=== PATIENT | male | born 1935 | race Caucasian/White ===

== ENCOUNTER → 2019-03-23 09:24 | Outpatient (CLI) | payer MEDICARE, SELFPAY ==
[2019-02-10 15:04] VITALS: BMI 25.7
--- NOTE | 2019-03-23 09:31 | STEWCON_ITS ---
Reason For Study: OLD [place] Stress Results Protocol: Dobutamine with definity Maximum Predicted HR: 138 bpm Target HR: 117 bpm % Maximum Predicted HR: 88 % DurationHeart Rate Stage (mm:ss) (bpm) BP Dose Comment BASELINE 57 105/64 3 CC DEFINITY 10 MCG 5:08 53 115/6010.001 CC DEFINITY 20 MCG 3:00 93 131/7420.00 30 MCG 3:00 107 127/7030.00 40 MCG 4:15 121 121/7040.002 CC DEFINITY RECOVERY 50 104/60 2 CC DEFINITY Stress Duration: 15:23 mm:ss Maximum Stress HR: 121 bpm Baseline Echocardiogram Findings The estimated ejection fraction is 65 %. Stress Echo Wall motion Data Resting WM Intermediate WM Stress WM Resting Wall Motion Wall Motion Stress No regional wall motion No regional wall motion abnormalities noted. abnormalities noted. EKG Data The baseline ECG displays normal sinus rhythm. The patient was titrated from 10 mcg to a maximum of 40 mcg of dobutamine during the stress. The maximum heart rate attained was 126 beats per minute. This was 91% of maximum predicted heart rate. During dobutamine infusion, there were no ST or T wave changes noted to suggest ischemia. No clinical angina was noted. Interpretation Summary The estimated ejection fraction is 65 %. Normal, adequate, dobutamine echocardiogram. Negative for ischemia by EKG and echocardiographic anterior. No anginal symptoms noted. Rare PVCs noted. Final LVEF is 75%. Decreased sensitivity due to poor echo windows requiring Definity agent. Test terminated due to attainment of target heart rate. No complications. The study was technically difficult. Contrast injection was performed. Ordering Physician: Jose Luis Hernandez MD Referring Physician: Jose Luis Hernandez Performed By: Nick Castro RCS
== END ==
PROVIDERS: Family Provider Family Medicine; PCP Family Medicine; Referring Provider Internal Medicine Cardiovascular Disease; Visit Provider Internal Medicine Cardiovascular Disease
DX: I25.10 Atherosclerotic heart disease of native coronary artery without angina pectoris (principal); E78.5 Hyperlipidemia, unspecified; I25.2 Old myocardial infarction; Z95.5 Presence of coronary angioplasty implant and graft
CPT/HCPCS: 93017; 93350; J7040; Q9957; A4216; C8928

== ENCOUNTER 2024-12-07 12:38 | Emergency (ER) | payer MEDICARE, SELFPAY ==
[2024-12-07 12:42] VITALS: BP 107/67; PULSE 78; RESP 18; TEMP 36.6; O2SAT 100
--- NOTE | 2024-12-07 13:16 | ED.VIS.DYS ---
HPI History of Present Illness Chief Complaint: Edema Informant: patient and PCP Narrative Narrative: 89-year-old male sent over from primary care office because of edema in the legs that has been present for several weeks according to the patient, 25 pound weight gain over the past 3-4 months, and dyspnea with exertion. He denies orthopnea. No chest pain. He has been able to ambulate. He had a remote stent placed 14 years ago or so, he denies a history of CHF that he knows of. In the office they said he appeared to be in A-fib and if so that would be new for him. Patient denies having any palpitations. Patient states he had a checkup 3 weeks ago in the office and discussed the leg edema with his doctor, they told him to watch it and they did not change any of his medications. [facility] Medical History (Updated 12/07/24 @ 15:[address] Colin Lee MD) Gout Atherosclerosis of coronary artery of [place] heart without angina pectoris Hypertension Hyperlipidemia Old inferior wall myocardial infarction Home Medications ?Medication ?Instructions ?Recorded ?Last Taken ?Type allopurinol 300 mg tablet 300 mg PO DAILY 09/13/17 12/07/24 History amoxicillin 500 mg tablet 2,000 mg PO DAILY PRN DENTIST 09/13/17 Unknown History bimatoprost 0.01 % eye drops 1 drp ophthalmic (eye) QHS 09/13/17 12/07/24 History ([place]) carvedilol 3.125 mg tablet (Coreg) 3.125 mg PO BID 09/13/17 12/07/24 History [id number] 300 mcg-K 60 1 tab PO DAILY 09/13/17 12/07/24 History mcg-lycop 600 mcg-lutein 300 mcg tablet (Centrum Silver Men) niacin 500 mg tablet,extended 500 mg PO QHS 09/13/17 12/06/24 History release 24 hr (Niaspan) nitroglycerin 0.4 mg sublingual 0.4 mg sublingual Q5-15M PRN chest 09/13/17 Unknown History tablet pain pravastatin 20 mg tablet 20 mg PO QHS 09/14/17 12/06/24 History brinzolamide 1 %-brimonidine 0.2 % 1 drp ophthalmic (eye) BID 02/10/19 Unknown History eye drops,suspension (Simbrinza) apixaban 2.5 mg tablet (Eliquis) 2.5 mg PO BID #60 tabs 12/07/24 Unknown Rx furosemide 40 mg tablet 40 mg PO DAILY #30 tabs 12/07/24 Unknown Rx lutein 10 mg tablet 10 mg PO DAILY 12/07/24 12/07/24 History Allergy/AdvReac Type Severity Reaction Status Date / Time SHARON Inhibitors AdvReac Hypotensive Verified 12/07/24 12:43 Family History Mother , AGe 71 Congestive heart failure Sister , Age 66 CAD (coronary artery disease) Breast cancer S/P CABG (coronary artery bypass graft) Surgical History H/O bilateral inguinal hernia repair H/O bilateral hip replacements H/O right coronary artery stent placement (06/13/10) Social History Smoking Status: Never smoker ROS ROS ED Constitutional Constitutional ED: Denies chills or fever(s) Eyes Eyes: Denies change in vision or diplopia ENT ENT ED: Denies rhinorrhea or sore throat Cardiovascular Cardiovascular: Reports leg edema; Denies chest pain or palpitations Respiratory/Chest Respiratory/Chest: Reports dyspnea and dyspnea on exertion; Denies cough Gastrointestinal Gastrointestinal: Denies abdominal pain, diarrhea, nausea or vomiting Genitourinary Genitourinary ED: Denies dysuria or hematuria Musculoskeletal Musculoskeletal: Denies back pain or neck pain Integumentary Denies abscess or rash Neurologic Neurologic: Denies headache(s), paresthesias or weakness Psychiatric Psychiatric: Denies anxiety or suicidal thoughts EXAM Physical Exam Const Vital Signs: 12/07/24 12:42 12/07/24 13:17 12/07/24 13:17 Temperature 97.8 F Temperature Source Oral Pulse Rate 78 Respiratory Rate 18 Respiratory Effort Short of Breath Normal Short of Breath Respiratory Depth Normal Respiratory Pattern Normal Normal Blood Pressure 107/67 Blood Pressure Mean 80 Pulse Ox 100 Oxygen Delivery Method Room Air Room Air Oxygen Flow Rate (L/min) 12/07/24 13:34 12/07/24 15:00 12/07/24 16:14 Temperature Temperature Source Pulse Rate 65 65 Respiratory Rate 18 18 Respiratory Effort Respiratory Depth Respiratory Pattern Blood Pressure 118/80 121/81 H Blood Pressure Mean 92 94 Pulse Ox 99 94 Oxygen Delivery Method Nasal Cannula Room Air Room Air Oxygen Flow Rate (L/min) 2 12/07/24 16:15 Temperature 97.8 F Temperature Source Pulse Rate 61 Respiratory Rate 19 H Respiratory Effort Respiratory Depth Respiratory Pattern Blood Pressure 120/80 Blood Pressure Mean 93 Pulse Ox 97 Oxygen Delivery Method Oxygen Flow Rate (L/min) Positive well nourished and well developed General Appearance ED: well developed and NAD HEENT Reports moist mucous membranes normocephalic and atraumatic Eyes PERRL and EOMs intact bilaterally Neck full ROM and supple Neck Narrative: +JVD Resp normal respiratory effort and clear to auscultation bilaterally Cardio regular rate and regular rhythm Cardio Narrative: Faint heart sounds GI non-tender and non-distended Auscultation: normoactive bowel sounds Palpation: soft Back/Spine no CVA tenderness General Back: other FROM Extremity normal to inspection General Extremety ED: Yes edema; Negative for pulses abnormal or tenderness General Extremity: edema bilateral lower extremity Details: severe (Symmetric, no signs of cellulitis, up to thighs); Negative for pulses abnormal Neuro oriented x3, CN's II-XII intact bilaterally and no sensory deficits noted Sensorium / Orientation: awake and alert Motor Exam: strength 5/5 throughout Skin no rashes or lesions noted and no wounds MDM MDM MDM Narrative Medical decision making narrative: And symptoms are concerning for congestive heart failure. His workup is basically consistent with that in addition to rate-controlled atrial fibrillation, which apparently the patient was unaware of prior to this. No old EKG is able to be reviewed except for the one from the office today which is similar, but he has a wide QRS and mild hyperkalemia. His potassium is only 5.3, which typically is not high enough to do this, and shows evidence of hemolysis. Chest x-ray 2 views does show pulmonary edema/CHF on my interpretation. His BNP is high, he does have a little bit of renal insufficiency but the BNP seems elevated out of proportion. I discussed admission with the patient, he states he has been doing well at home without exertional chest discomfort, he is not been limited with regards to weakness or heaviness in his legs or his breathing and is able to climb a flight of stairs without difficulty with his walker. We discussed the possibility of outpatient follow-up and he is amenable to that. He ambulated down the [place] with his walker without any limitation or problem, and he did not go below 94% on room air. His troponin is a little elevated but nonspecifically so, repeat is lower. I discussed with cardiology Dr. Watt, who agrees with starting him on low-dose anticoagulant, Lasix 40 mg once daily, continue with carvedilol as it is rate controlling him well, and close a patient follow-up in the office. He and family are comfortable with that plan. History & Record Review Additional record(s) reviewed:: No prior records (No old EKG, no prior echocardiogram) Lab Data Attestation: I reviewed the patient's lab results. Labs: Laboratory Results - last 24 hr 12/07/24 12/07/24 13:30 15:22 WBC 4.5 RBC 3.46 L Hgb 12.7 L Hct 38.8 L MCV 112.1 H MCH 36.7 H MCHC 32.7 RDW Std Deviation 60.1 H RDW Coeff of Yanet 14.6 Plt Count 100 L MPV 12.8 H Immature Gran % (Auto) 0.400 Neut % (Auto) 70.6 H Lymph % (Auto) 15.7 L [place] % (Auto) 11.7 H Eos % (Auto) 0.9 Baso % (Auto) 0.7 Absolute Neuts (auto) 3.2 Absolute Lymphs (auto) 0.70 L Nucleated RBC % 0 Sodium 135 Potassium 5.3 H Chloride 104 Carbon Dioxide 21.5 Anion Gap 10 BUN 34 H Creatinine 1.35 H Est GFR (MDRD) Non-Af 50 L BUN/Creatinine Ratio 25.0 H Glucose 143 H Calcium 8.8 Troponin T High Sens 46 H Troponin T Hi Sens 2 Hr 40 H NT pro BNP II 7289 H Radiography Diagnostic Testing: Clinical Impression(s) from Imaging Studies Chest X-Ray 12/07/24 13:55 IMPRESSION: Mild cardiomegaly. Vascular congestion and mild CHF with bibasilar atelectasis and blunting of both costophrenic angles posteriorly. Reading Location: [facility] Rhythm Strip Rhythm Strip: A-fib Rate: 65 Ectopy: None EKG Initial EKG: Attestation: I personally reviewed and interpreted this EKG as follows: Interpretation: No Acute Injury Pattern and Atrial Fibrillation Comments: Slightly wide QRS. Poor R wave progression. Low limb lead voltage. No electrical alternans. Prior EKG tracings: not available for review Prior: No Prior Management Discussion w/another healthcare provider: [employer] Discharge Plan Triage Chief Complaint: Edema Other Complaint: Shortness of Breath ED Provider: Colin Lee Dx/Rx/DC Orders Clinical Impression: Acute CHF, Atrial fibrillation, Acute renal insufficiency Instructions: AFib Dc, Heart Failure Prescriptions: New Eliquis 2.5 mg tablet 2.5 mg PO BID Qty: 60 0RF furosemide 40 mg tablet 40 mg PO DAILY Qty: 30 0RF Continued pravastatin 20 mg tablet 20 mg PO QHS allopurinol 300 mg tablet 300 mg PO DAILY nitroglycerin 0.4 mg tablet, sublingual 0.4 mg SUBLINGUAL Q5-15M PRN (Reason: chest pain) niacin [Niaspan Extended-Release] 500 mg tablet extended release 24 hr 500 mg PO QHS carvedilol [Coreg] 3.125 mg tablet 3.125 mg PO BID amoxicillin 500 mg tablet 2,000 mg PO DAILY PRN (Reason: DENTIST) Patient Comments: 30-60 minutes prior to dental procedure Lumigan 0.01 % drops 1 drp OPHTHALMIC QHS Rx Instructions: 1 DROP IN BOTH EYES Centrum Silver Men 300-600-300 mcg tablet 1 tab PO DAILY Simbrinza 1-0.2 % drops,suspension 1 drp OPHTHALMIC BID lutein 10 mg tablet 10 mg PO DAILY Rx Instructions: give with meal/snack Discontinued aspirin 81 mg tablet,delayed release (DR/EC) 81 mg PO DAILY Primary Care Provider: Butch Munoz Referrals: Broderick Watt MD [Med Staff - Active Staff] - As soon as possible (call for appt) Print Language: Romanian Disposition Disposition: Home, Self Care
[2024-12-07 13:17] VITALS: O2SAT 97
[2024-12-07 13:42] LABS: Absolute Neutrophil Count 3.2 X10^3/uL (2.0-7.7); Basophil# 0.03 X10^3/uL; Basophil% 0.7 % (0-1); Eosinophil# 0.04 X10^3/uL; Eosinophils% 0.9 % (0-5); Hematocrit 38.8 % (40-54); Hemoglobin 12.7 g/dL (13.0-16.5); Lymphocyte % 15.7 % (19-41); Mean Corp Hgb Conc 32.7 g/dL (32-36); Mean Corpuscular Hgb 36.7 pg (27.0-32.0); Mean Corpuscular Volume 112.1 fL (80-94); Mean Platelet Vol. 12.8 fl (6.2-12.0); Monocyte# 0.52 X10^3/uL; Monocyte% 11.7 % (0-10); NRBC Flagged by Analyzer 0 % (0-5); Neutrophil # 3.15 X10^3/uL (2.7-7.7); Neutrophil % 70.6 % (47-70); Platelet Count 100 K/mm3 (150-450); RBC Distribution Width CV 14.6 % (11.6-14.6); RBC Distribution Width SD 60.1 fl (35.1-43.9); Red Blood Count 3.46 M/mm3 (4.6-6.2); White Blood Count 4.5 K/mm3 (4.4-11.0)
--- NOTE | 2024-12-07 13:55 | RAD_ITS ---
PROCEDURE: CHEST PA AND LATERAL 12/07/2024 REASON FOR EXAM: DYSPNEA TECHNIQUE: Frontal and lateral views of the chest. COMPARISON: No priors available. FINDINGS: Hardware: EKG electrodes are seen. Heart: Heart size is mildly enlarged. Mediastinum: Calcification of the aortic arch. Lungs: Elevation of the right hemidiaphragm. Bibasilar atelectasis. Mild vascular congestion and CHF. Blunting of the costophrenic angles posteriorly. Bones: Degenerative changes are identified within the thoracic spine. Degenerative changes of both shoulder joints. RAD/Chest PA and Lateral IMPRESSION: Mild cardiomegaly. Vascular congestion and mild CHF with bibasilar atelectasis and blunting of bot h costophrenic angles posteriorly. Reading Location: [place] [id number]
[2024-12-07 14:14] LABS: Anion Gap 10 (5-15); BUN 34 mg/dL (4-19); Calcium,Total 8.8 mg/dL (7.6-11.0); Carbon Dioxide 21.5 mmol/L (21.0-32.0); Chloride 104 mmol/L (98-108); Creatinine, Serum 1.35 mg/dL (0.70-1.20); EST Glomerular Filtration Rate 50 (>60); Glucose 143 mg/dL (70-99); Potassium 5.3 mmol/L (3.3-5.1); Pro- Brain NATRIURETIC PEPTIDE 7289 pg/mL (<=1800); Sodium Level 135 mmol/L (133-145); Troponin T High Sensitivity 46 ng/L (<=22)
[2024-12-07 15:00] VITALS: BP 118/80; PULSE 65; RESP 18; O2SAT 99
[2024-12-07 15:22] VITALS: BMI 31.8
[2024-12-07 16:02] VITALS: O2SAT 100
[2024-12-07 16:13] LABS: Troponin T High Sens 2 HR 40 ng/L (<=22)
[2024-12-07] MEDS: Furosemide 20 MG/2 ML VIAL IV (16:13)
[2024-12-07 16:14] VITALS: BP 121/81; PULSE 65; RESP 18; O2SAT 94
[2024-12-07 16:15] VITALS: BP 120/80; PULSE 61; RESP 19; TEMP 36.6; O2SAT 97
== END 2024-12-07 16:35 | disposition home or self-care (01) ==
PROVIDERS: Emergency Provider Emergency Medicine; PCP Family Medicine; Visit Provider Emergency Medicine
DX: I11.0 Hypertensive heart disease with heart failure (principal); I50.9 Heart failure, unspecified; I48.91 Unspecified atrial fibrillation; N28.9 Disorder of kidney and ureter, unspecified; E87.5 Hyperkalemia; I25.10 Atherosclerotic heart disease of native coronary artery without angina pectoris; E78.5 Hyperlipidemia, unspecified; R60.0 Localized edema; I25.2 Old myocardial infarction; Z79.01 Long term (current) use of anticoagulants; Z79.899 Other long term (current) drug therapy; Z95.5 Presence of coronary angioplasty implant and graft
CPT/HCPCS: 71046; 80048; 83880; 84484; 85025; 93005; 96374; 99285; A4216; J1940

== ENCOUNTER 2025-01-06 13:43 | Inpatient (IN) | payer MEDICARE, SELFPAY ==
[2025-01-06] VITALS (13 sets, daily range): BP systolic 99–124; BP diastolic 67–89; PULSE 67–110; RESP 19–26; TEMP 36.1–36.8; O2SAT 86–100; BMI 29.7; BMI 26.3
--- NOTE | 2025-01-06 14:04 | EKG12_ITS ---
Test Reason : Blood Pressure : */* mmHG Vent. Rate : 82 BPM Atrial Rate : * BPM P-R Int : * ms QRS Dur : 158 ms QT Int : 428 ms P-R-T Axes : * -86 45 degrees QTcB Int : 500 ms Atrial fibrillation with premature ventricular or aberrantly conducted complexes Left axis deviation Left bundle branch block Abnormal ECG Confirmed by JOSÉ MANUEL TREJO, BERNARD ([id number]), multimedia editor GENESIS TERRAZAS ([id number]) on 01/10/2025 7:03:18 AM Referred By: Ariela Luciano Confirmed By: BERNARD GEORGES MD
--- NOTE | 2025-01-06 14:05 | ED.VIS.DYS ---
HPI History of Present Illness Chief Complaint: Shortness of Breath Informant: patient, family and other (Dr. Wong, cardiology) Narrative Narrative: Patient sent down from cardiology office for evaluation admission. Dr. Wong came out of the department. Patient follow-up from the ED visit on December 07. He had significant leg swelling with put on water pills clinically stay was getting better however arrival to the office he was 74% on room air. He was placed on 4 L in the office. EKG with A-fib similar from his previous. Family present states less activity since his ED visit. He is on water pills 2 tabs daily. States leg swelling much more improved from previous. Denies orthopnea. Denies cough. Denies chest pains. He had a heart stent in 2009. Per cardiology EF was normal in 2017. Patient reports he was started on Eliquis on his last ED visit. [facility] Medical History (Updated 01/06/25 @ 15:[address] Bret Victoria, DO) Gout Atherosclerosis of coronary artery of [place] heart without angina pectoris Hypertension Hyperlipidemia Old inferior wall myocardial infarction Home Medications ?Medication ?Instructions ?Recorded ?Last Taken ?Type allopurinol 300 mg tablet 300 mg PO DAILY 09/13/17 12/07/24 History amoxicillin 500 mg tablet 2,000 mg PO DAILY PRN DENTIST 09/13/17 Unknown History bimatoprost 0.01 % eye drops 1 drp ophthalmic (eye) QHS 09/13/17 12/07/24 History ([place]) carvedilol 3.125 mg tablet (Coreg) 3.125 mg PO BID 09/13/17 12/07/24 History zccbwert-cm-fgaaw 300 mcg-K 60 1 tab PO DAILY 09/13/17 12/07/24 History mcg-lycop 600 mcg-lutein 300 mcg tablet (Centrum Silver Men) niacin 500 mg tablet,extended 500 mg PO QHS 09/13/17 12/06/24 History release 24 hr (Niaspan) nitroglycerin 0.4 mg sublingual 0.4 mg sublingual Q5-15M PRN chest 09/13/17 Unknown History tablet pain pravastatin 20 mg tablet 20 mg PO QHS 09/14/17 12/06/24 History brinzolamide 1 %-brimonidine 0.2 % 1 drp ophthalmic (eye) BID 02/10/19 Unknown History eye drops,suspension (Simbrinza) apixaban 2.5 mg tablet (Eliquis) 2.5 mg PO BID #60 tabs 12/07/24 Unknown Rx lutein 10 mg tablet 10 mg PO DAILY 12/07/24 12/07/24 History aspirin 81 mg tablet 81 mg PO QDAY 01/06/25 Unknown History furosemide 40 mg tablet 80 mg PO DAILY 01/06/25 Unknown History Allergy/AdvReac Type Severity Reaction Status Date / Time SHARON Inhibitors AdvReac Hypotensive Verified 01/06/25 13:08 Family History Mother , AGe 71 Congestive heart failure Sister , Age 66 CAD (coronary artery disease) Breast cancer S/P CABG (coronary artery bypass graft) Surgical History H/O bilateral inguinal hernia repair H/O bilateral hip replacements H/O right coronary artery stent placement (06/13/10) Social History household members: spouse housing: house current occupational status: retired Smoking Status: Never smoker ROS ROS ED Constitutional Constitutional ED: Denies chills, fever(s) or sweats ENT ENT ED: Denies sore throat Cardiovascular Cardiovascular: Reports leg edema; Denies chest pain, palpitations or racing heartbeat Respiratory/Chest Respiratory/Chest: Reports dyspnea and dyspnea on exertion; Denies cough Gastrointestinal Gastrointestinal: Denies abdominal pain, diarrhea, nausea or vomiting Genitourinary Genitourinary ED: Denies dysuria, hematuria or urinary frequency Musculoskeletal Musculoskeletal: Denies back pain, extremity pain or neck pain Integumentary Denies rash or wounds Neurologic Neurologic: Denies headache(s), paresthesias or weakness EXAM Physical Exam Const Vital Signs: 01/06/25 13:44 01/06/25 14:13 01/06/25 14:21 Temperature 96.9 F L Temperature Source Temporal Pulse Rate 110 H 82 Respiratory Rate 26 H 24 H Respiratory Effort Respiratory Depth Respiratory Pattern Blood Pressure 124/74 H Blood Pressure Mean 90 Pulse Ox 94 98 100 Oxygen Delivery Method Nasal Cannula Nasal Cannula Nasal Cannula Oxygen Flow Rate (L/min) 6 5 5 01/06/25 14:30 01/06/25 14:35 01/06/25 15:00 Temperature Temperature Source Pulse Rate 80 78 Respiratory Rate 22 H 19 H Respiratory Effort Short of Breath Respiratory Depth Normal Respiratory Pattern Tachypnea Blood Pressure 113/89 H 99/78 Blood Pressure Mean 97 86 Pulse Ox 100 Oxygen Delivery Method Nasal Cannula Nasal Cannula Oxygen Flow Rate (L/min) 5 3 Positive well nourished and well developed Constitutional Narrative: 6 L nasal cannula, no respiratory distress. General Appearance ED: well developed and NAD HEENT Reports moist mucous membranes normocephalic and atraumatic Eyes General Eye ED: Yes normal appearance of both eyes Neck full ROM Chest Wall Chest: Negative for tenderness Resp normal respiratory effort and normal air movement Effort and Inspection: symmetric chest movement; Negative for respiratory distress Cardio regular rate and no murmurs Peripheral Pulses: pulses 2+ throughout GI normal to inspection, nondistended, normoactive bowel sounds and non-tender Palpation: Negative for guarding or rebound tenderness present Extremity normal to inspection Extremity Narrative: 1+ lower extremity edema. General Extremety ED: Yes edema; Negative for tenderness General Extremity: edema Neuro oriented x3 and no sensory deficits noted Sensorium / Orientation: awake and alert Skin no rashes or lesions noted and no wounds MDM MDM MDM Narrative Medical decision making narrative: Interventions / MDM: Differential diagnosis: Congestive heart failure, atrial fibrillation, hypoxia, elevated troponin Diagnosis considered but do not suspect: Pulmonary embolism however on anticoagulation and compliant. My EKG interpretation: Rate controlled A-fib 82, no ST changes PVC left bundle branch block. Similar findings from EKG December 07, 2024. Imaging independently reviewed and interpreted by myself: 1 view chest x-ray: Vascular congestion also read by radiology. External documents reviewed: ED visit December 07, 2024. New onset A-fib rate controlled. Heart failure. Discussion with cardiology in department Lasix to 40 mg daily along with Eliquis 2.5 mg twice daily.. Test considered but not ordered:N/A ED course: Patient currently on 6 L nasal cannula due to hypoxia, Which is new. Clinically reporting overall symptoms seem to be improved on the diuretics. EKG with rate controlled A-fib. Will check chest x-ray will check labs. Patient will need admission due to hypoxia. 1515: Labs stable creatinine at 1.5 GFR of 39. Hemoglobin 15.8. White count 4.4. BNP 9617. Chest x-ray with vascular congestion. Given IV Lasix of 40 mg. Troponin elevated at 65 a month ago it was in the 40s. No chest pains. I did give him 2 baby aspirin's. He is on Eliquis with last dose this morning. I discussed with hospitalist Dr. Luciano for admission to PCU. Re-evaluation: stable Disposition discussed with patient/family/significant other: Patient and family Case discussed with consulting clinician: Hospitalist This note was generated with [employer] dictation software. It may contain incorrect words, spelling, and punctuation that were not noted in checking the note before signing. Lab Data Attestation: I reviewed the patient's lab results. Labs: Laboratory Results - last 24 hr 01/06/25 14:19 WBC 4.4 RBC 4.36 L Hgb 15.8 Hct 46.9 MCV 107.6 H MCH 36.2 H MCHC 33.7 RDW Std Deviation 60.3 H RDW Coeff of Yanet 15.0 H Plt Count 98 L MPV 10.5 Immature Gran % (Auto) 0.500 Neut % (Auto) 65.5 Lymph % (Auto) 18.1 L [place] % (Auto) 13.8 H Eos % (Auto) 1.6 Baso % (Auto) 0.5 Absolute Neuts (auto) 2.9 Absolute Lymphs (auto) 0.79 L Nucleated RBC % 0.5 PT 18.1 H INR 1.5 APTT 41.0 H Sodium 135 Potassium 3.7 Chloride 96 L Carbon Dioxide 27.0 Anion Gap 13 BUN 33 H Creatinine 1.51 H Estim Creat Clear Calc 38.97 L Est GFR (MDRD) Non-Af 44 L BUN/Creatinine Ratio 22.1 H Glucose 129 H Calcium 9.4 Troponin T High Sens 65 H* D NT pro BNP II 9617 H Radiography Diagnostic Testing: Clinical Impression(s) from Imaging Studies Chest X-Ray 01/06/25 14:20 IMPRESSION: Cardiomegaly with mild congestion. Reading Location: [facility] Discharge Plan Triage Chief Complaint: Shortness of Breath ED Provider: Bret Victoria Dx/Rx/DC Orders Clinical Impression: CHF (congestive heart failure), Hypoxia, Atrial fibrillation, controlled, Elevated troponin, CKD (chronic kidney disease), stage III Prescriptions: No Action pravastatin 20 mg tablet 20 mg PO QHS allopurinol 300 mg tablet 300 mg PO DAILY nitroglycerin 0.4 mg tablet, sublingual 0.4 mg SUBLINGUAL Q5-15M PRN (Reason: chest pain) niacin [Niaspan Extended-Release] 500 mg tablet extended release 24 hr 500 mg PO QHS carvedilol [Coreg] 3.125 mg tablet 3.125 mg PO BID amoxicillin 500 mg tablet 2,000 mg PO DAILY PRN (Reason: DENTIST) Patient Comments: 30-60 minutes prior to dental procedure Lumigan 0.01 % drops 1 drp OPHTHALMIC QHS Rx Instructions: 1 DROP IN BOTH EYES Centrum Silver Men 300-600-300 mcg tablet 1 tab PO DAILY Simbrinza 1-0.2 % drops,suspension 1 drp OPHTHALMIC BID aspirin 81 mg tablet 81 mg PO QDAY furosemide 40 mg tablet 80 mg PO DAILY lutein 10 mg tablet 10 mg PO DAILY Rx Instructions: give with meal/snack Eliquis 2.5 mg tablet 2.5 mg PO BID Qty: 60 0RF Primary Care Provider: Butch Munoz Referrals: Butch Munoz MD [Primary Care Provider] - Print Language: Upper Sorbian Disposition Disposition: Acute Care Hospital [facility]
--- NOTE | 2025-01-06 14:20 | RAD_ITS ---
EXAM: XR Chest, 1 View CLINICAL INDICATION: SOB TECHNIQUE: Frontal view of the chest. COMPARISON: No relevant prior studies available. FINDINGS: LUNGS AND PLEURAL SPACES: See below. HEART: Cardiomegaly with mild congestion. MEDIASTINUM: Unremarkable. Normal mediastinal contour. BONES/JOINTS: Unremarkable. No acute fracture. RAD/Chest 1 View (Portable) IMPRESSION: Cardiomegaly with mild congestion. Reading [facility]
[2025-01-06 14:37] LABS: Absolute Lymphocyte Count 0.79 X10^3/uL (0.83-4.51); Absolute Neutrophil Count 2.9 X10^3/uL (2.0-7.7); Basophil# 0.02 X10^3/uL; Basophil% 0.5 % (0-1); Eosinophil# 0.07 X10^3/uL; Eosinophils% 1.6 % (0-5); Hematocrit 46.9 % (40-54); Hemoglobin 15.8 g/dL (13.0-16.5); Lymphocyte # 0.79 X10^3/ul (0.83-4.51); Lymphocyte % 18.1 % (19-41); Mean Corp Hgb Conc 33.7 g/dL (32-36); Mean Corpuscular Hgb 36.2 pg (27.0-32.0); Mean Corpuscular Volume 107.6 fL (80-94); Mean Platelet Vol. 10.5 fl (6.2-12.0); Monocyte% 13.8 % (0-10); NRBC Flagged by Analyzer 0.5 % (0-5); Neutrophil # 2.86 X10^3/uL (2.7-7.7); Neutrophil % 65.5 % (47-70); POSITIVE COUNT YES; Platelet Count 98 K/mm3 (150-450); RBC Distribution Width SD 60.3 fl (35.1-43.9); Red Blood Count 4.36 M/mm3 (4.6-6.2); White Blood Count 4.4 K/mm3 (4.4-11.0)
[2025-01-06 14:54] LABS: Anion Gap 13 (5-15); BUN 33 mg/dL (4-19); BUN/Creat Ratio 22.1 RATIO (10-20); Calcium,Total 9.4 mg/dL (7.6-11.0); Chloride 96 mmol/L (98-108); Creatinine, Serum 1.51 mg/dL (0.70-1.20); EST Glomerular Filtration Rate 44 (>60); Estimated Creatinine Clearance 38.97 ml/min (50-250); Glucose 129 mg/dL (70-99); Potassium 3.7 mmol/L (3.3-5.1); Sodium Level 135 mmol/L (133-145)
[2025-01-06 14:57] LABS: Differential Indicated SCAN CRITERIA MET
[2025-01-06 15:03] LABS: Pro- Brain NATRIURETIC PEPTIDE 9617 pg/mL (<=1800); Troponin T High Sensitivity 65 ng/L (<=22)
[2025-01-06 15:10] LABS: International Normalized Ratio 1.5; Prothrombin Time (Protime)PT. 18.1 SECONDS (11.7-14.9)
[2025-01-06] MEDS: Aspirin 81 MG TAB.CHEW 162 MG PO (15:41)
[2025-01-06] MEDS: Furosemide 40 MG/4 ML Vial IV ×2 (15:45→18:08)
--- NOTE | 2025-01-06 15:46 | PCM.HP.STD ---
HPI - General General Date of Admission: 01/06/25 Date of Service: 01/06/25 Chief Complaint: Hypoxia HPI Narrative VALDO DUTTA, is a 89-year-old male history of gout, coronary artery disease, hypertension, A-fib who presented to [facility] ED 01/06/2025 from the cardiology office for evaluation for shortness of breath. Patient noted to have significant leg swelling and had been placed on water pills and thought he was getting better however on arrival to the cardiology office he was 74% on room air and placed on 4 L of O2 at that time and brought to the ED. On arrival to the ED patient afebrile, heart rate 110 with blood pressure 124/74, respiratory rate 26 and pulse ox 94% on 6 L nasal cannula. CBC revealed white blood cell count of 4.4 and hemoglobin of 15.8 with a platelet count of 9 8With a platelet count of 98. CBC with a BUN of 33 and creatinine of 1.51, slightly up from previous but does not meet criteria for TAHIRA. Chest x-ray with cardiomegaly with mild edema, proBNP 9600 and troponin of 65. Patient given IV Lasix for presumed fluid overload/heart failure exacerbation hospitalist contacted for admission. Patient evaluated with multiple family members at bedside. Reportedly since October patient's had increased shortness of breath on exertion and increased swelling in lower extremities, he was seen on 07 December and diagnosed with A-fib and placed on Lasix and Eliquis, PCP increased his Lasix 12 days ago and he thought he was doing better however was found to be hypoxic at the cardiology office and sent to the ED. He reports no shortness of breath while resting in the ED and that his swelling is better than it was. Denies any chest pain. Only other complaint is that for at least a week his left eye has had some change in depth perception and he feels like objects are closer than they seem when he reaches for them, closing his left eye resolves this. [facility] Medical History (Updated 01/06/25 @ 15:[address] Bret Victoria, ) Atherosclerosis of coronary artery of havasupai heart without angina pectoris Gout Hyperlipidemia Hypertension Old inferior wall myocardial infarction Home Medications ?Medication ?Instructions ?Recorded ?Last Taken ?Type allopurinol 300 mg tablet 300 mg PO DAILY 09/13/17 12/07/24 History amoxicillin 500 mg tablet 2,000 mg PO DAILY PRN DENTIST 09/13/17 Unknown History bimatoprost 0.01 % eye drops 1 drp ophthalmic (eye) QHS 09/13/17 12/07/24 History (Clau) carvedilol 3.125 mg tablet (Coreg) 3.125 mg PO BID 09/13/17 12/07/24 History uorcknut-pq-zuvxu 300 mcg-K 60 1 tab PO DAILY 09/13/17 12/07/24 History mcg-lycop 600 mcg-lutein 300 mcg tablet (Centrum Silver Men) niacin 500 mg tablet,extended 500 mg PO QHS 09/13/17 12/06/24 History release 24 hr (Niaspan) nitroglycerin 0.4 mg sublingual 0.4 mg sublingual Q5-15M PRN chest 09/13/17 Unknown History tablet pain pravastatin 20 mg tablet 20 mg PO QHS 09/14/17 12/06/24 History brinzolamide 1 %-brimonidine 0.2 % 1 drp ophthalmic (eye) BID 02/10/19 Unknown History eye drops,suspension (Simbrinza) apixaban 2.5 mg tablet (Eliquis) 2.5 mg PO BID #60 tabs 12/07/24 Unknown Rx lutein 10 mg tablet 10 mg PO DAILY 12/07/24 12/07/24 History aspirin 81 mg tablet 81 mg PO QDAY 01/06/25 Unknown History furosemide 40 mg tablet 80 mg PO DAILY 01/06/25 Unknown History Allergy/AdvReac Type Severity Reaction Status Date / Time SHARON Inhibitors AdvReac Hypotensive Verified 01/06/25 13:08 Family History Mother , AGe 71 Congestive heart failure Sister , Age 66 CAD (coronary artery disease) Breast cancer S/P CABG (coronary artery bypass graft) Surgical History H/O bilateral hip replacements H/O bilateral inguinal hernia repair H/O right coronary artery stent placement (06/13/10) Social History household members: spouse housing: house current occupational status: retired Smoking Status: Never smoker ROS ROS Narrative General: Denies fever/chills HENT: Denies headache, denies stuffy nose, denies sore throat EYES: Has some vision changes in his left eye for about a week Resp: Denies cough, shortness of breath particularly on exertion Cardiac: Denies chest pain GI: Denies abdominal pain, denies changes in bowel, denies nausea/vomiting : Denies changes in urination Extremity: Swelling in bilateral lower extremities MSK: Denies weakness Neuro: Denies any numbness/tingling Heme: Easy bruising Skin: Denies rashes Psychiatric: No complaints voiced Vital Signs Vital Signs Vital Signs: 01/06/25 13:44 01/06/25 14:13 01/06/25 14:21 Temperature 96.9 F L Temperature Source Temporal Pulse Rate 110 H 82 Respiratory Rate 26 H 24 H Respiratory Effort Respiratory Depth Respiratory Pattern Blood Pressure 124/74 H Blood Pressure Mean 90 Pulse Ox 94 98 100 Oxygen Delivery Method Nasal Cannula Nasal Cannula Nasal Cannula Oxygen Flow Rate (L/min) 6 5 5 01/06/25 14:30 01/06/25 14:35 01/06/25 15:00 Temperature Temperature Source Pulse Rate 80 78 Respiratory Rate 22 H 19 H Respiratory Effort Short of Breath Respiratory Depth Normal Respiratory Pattern Tachypnea Blood Pressure 113/89 H 99/78 Blood Pressure Mean 97 86 Pulse Ox 100 Oxygen Delivery Method Nasal Cannula Nasal Cannula Oxygen Flow Rate (L/min) 5 3 01/06/25 15:30 01/06/25 15:33 Temperature 98.2 F Temperature Source Pulse Rate 84 84 Respiratory Rate 20 H 20 H Respiratory Effort Respiratory Depth Respiratory Pattern Blood Pressure 107/79 107/79 Blood Pressure Mean 89 88 Pulse Ox 98 Oxygen Delivery Method Oxygen Flow Rate (L/min) Weight Weight: 94.2 kg Body Mass Index (BMI) 29.7 Physical Exam Narrative General: Alert, oriented, no apparent distress HEENT: Atraumatic, normocephalic Eyes: Anicteric, normal conjunctiva Neck: Supple Respiratory: Diminished bilaterally, conversational dyspnea Cardiovascular: Irregularly irregular GI: Soft, nontender, nondistended Extremities: 2+ lower extremity pitting edema Musculoskeletal: Moving all extremities Neuro: No overt focal neurological deficits apparent at time of exam Skin: No rashes appreciated Psych: Cooperative Results Lab / Micro Data 01/06/25 14:19 01/06/25 14:19 Labs: Laboratory Results - last 24 hr 01/06/25 14:19: WBC 4.4, RBC 4.36 L, Hgb 15.8, Hct 46.9, MCV 107.6 H, MCH 36.2 H, MCHC 33.7, RDW Std Deviation 60.3 H, RDW Coeff of Yanet 15.0 H, Plt Count 98 L, MPV 10.5, Immature Gran % (Auto) 0.500, Neut % (Auto) 65.5, Lymph % (Auto) 18.1 L, Sharp % (Auto) 13.8 H, Eos % (Auto) 1.6, Baso % (Auto) 0.5, Absolute Neuts (auto) 2.9, Absolute Lymphs (auto) 0.79 L, Nucleated RBC % 0.5, PT 18.1 H, INR 1.5, APTT 41.0 H, Sodium 135, Potassium 3.7, Chloride 96 L, Carbon Dioxide 27.0, Anion Gap 13, BUN 33 H, Creatinine 1.51 H, Estim Creat Clear Calc 38.97 L, Est GFR (MDRD) Non-Af 44 L, BUN/Creatinine Ratio 22.1 H, Glucose 129 H, Calcium 9.4, Troponin T High Sens 65 H* D, NT pro BNP II 9617 H Imaging Radiology Impression Chest X-Ray 01/06/25 14:20 IMPRESSION: Cardiomegaly with mild congestion. Reading Location: [facility] Assessment & Plan Assessment/Plan (1) CHF (congestive heart failure): QUALIFIERS: Heart failure type: unspecified Heart failure chronicity: acute Qualified Code(s): I50.9 - Heart failure, unspecified PLAN: Plan # Hypoxia secondary to fluid overload, suspect heart failure exacerbation of unclear subtype, did have diastolic dysfunction in 2017 so suspect heart failure with preserved ejection fraction exacerbation -Admit to telemetry -proBNP 9000 -CXR cardiomegaly with mild congestion -Continue IV lasix -Last echo 2017 with stage I diastolic dysfunction and normal EF -Repeat echo ordered -Daily weights, I's and O's -Fluid restriction, heart healthy diet #Elevated troponin - Troponin of 65 -No chest pain -Suspect this is all secondary to fluid overload # CKD stage III b - Slightly up from previous but does not meet criteria for an TAHIRA, suspect this is around baseline but will continue to trend BMP -Avoid nephrotoxic agents -Daily BMPs #Vision changes in left eye - Patient specifically reports altered depth perception with his left eye but is able to see things without difficulty, given this vague and nonspecific focal complaint will obtain routine CT head to verify no significant abnormalities, suspect patient can have further workup outpatient if this is negative #Paroxysmal Atrial Fibrillation -Rate control: Carvedilol -Anticoagulation: Eliquis #Hx of CAD -w/ previous stenting in 2009 after cardiac arrest -Continue home medications #Gout -Continue home allopurinol CODE status: Discussed CODE status at length including difference between FULL code, DNR-CCA, and DNR-CC status. Following discussions about the differences in these status, requested DO NOT RESUSCITATE but okay for intubation. Advanced Care Planning Face to Face Time: 20 minutes. #DVT ppx: Not indicated, patient on full dose anticoagulation Ariela Luciano MD Charges/Coding Multi Select Codes Visit Charges Visit Charges: 57297 Init Hosp L2 Hospitalists' Procedures Procedures: 69922 Advncd Care Plan 30 Min
--- NOTE | 2025-01-06 16:26 | CASEMGMT ---
Care Management Face to Face with patient for initial transition planning/care coordination assessment in the ED. This ticket writer introduced self and role at [facility]. Patient alert and oriented with patient's , Desire, at bedside. Patient willing to participate in assessment and is able to answer all questions appropriately. Care providers, pharmacy, and demographics verified. Admitting Diagnosis: CHF Other diagnosis history: gout, coronary artery disease, hypertension, A-fib PCP: Alexander Specialists: none Preferred Pharmacy: [facility] for 90 day supplies. [facility] for short term. Insurance: AARP Medicare Adv. Prescription Benefit: yes Living Will/HPOA: , Desire (primary). DaughterSusan (secondary). Not on file, but expressed intent to bring in for [facility] to make a copy and add to chart. LNOK: and daughter. Living Arrangements: with with 2 steps to enter, first floor living, needs help with some ADLs/IADLs depending on the day Transportation: daughter drives when necessary DME: walker, cane, walk in shower (has O2 on in ED due to SOB concerns, but does not have O2 at home) HHC: none (has only had outpatient therapies) SNF/Rehab: none Community Resources: none, but reports having anabaptist support Patient goals: Patient wishes to discharge home, denies need for home health care at this time (family in agreement). Patient denies any further needs or concerns at this time. Disposition Plan: admission to acute; RN CM/SW to follow for discharge planning needs that may arise. Iesha Singh, IT PROGRAM AUDITOR, TRIMMING CUTTER MACHINE
--- NOTE | 2025-01-06 16:44 | CT_ITS ---
PROCEDURE: BRAIN/HEAD WITHOUT CONTRAST 01/06/2025 REASON FOR EXAM: LEFT EYE DEPTH PERCEPTION VISION CHANGE X1 WEEK TECHNIQUE: Head CT without intravenous contrast. Coronal and Sagittal reconstruction series were provided. One or more dose reduction techniques were used (e.g., Automated exposure control, adjustment of the mA and/or kV according to patient size, use of iterative reconstruction technique. RADIATION DOSE SUMMARY: CTDlvol: 47.1 mGy DLP: 908 mGycm COMPARISON: None FINDINGS: Brain: No acute intracranial hemorrhage, midline shift, or mass effect. Low density in the periventricular white matter suggests chronic small vessel ischemic changes. CSF Spaces: Advanced generalized cerebral atrophy. Punctate foci of air are present at the cavernous sinus bilaterally. Sinuses/Mastoids: Opacification throughout the left maxillary sinus with hyperdense contents centrally. Bones: No displaced calvarial fracture. Soft tissue debris in the external auditory canals, likely cerumen. Pneumatized petrous apices. Bilateral enophthalmos. Prior cataract extraction bilaterally. CT/Brain/Head without Contrast IMPRESSION: 1. No acute intracranial abnormality. Senescent changes. 2. Bilateral enophthalmos. 3. Left maxillary sinus disease. Presence of hyperdense contents may be seen with fungal etiology. 4. Punctate foci of air in the region of the cavernous sinuses, which could be related to intravenous access in the absence of trauma. Infection is also possible but statistically less likely. Reading Location: [id number]
--- NOTE | 2025-01-06 16:44 | ECHOD_ITS ---
Reason For Study : CHF Procedure This was a 2D Doppler, Color Flow transthoracic echocardiogram. Exam performed portable in patient room. Left Ventricle Normal LV size. Mid cavitary false tendon noted. The left ventricular ejection fraction is 40 %. There is mild to moderate global hypokinesis of the left ventricle. Right Ventricle Normal RV size. Normal systolic function. Atria The left atrium is mildly enlarged. The right atrium is mildly enlarged. Mitral Valve Bileaflet diffuse mitral valve thickening. Moderate (2+) eccentric mitral valve insufficiency. Tricuspid Valve Normal tricuspid valve. Mild to moderate (1-2+) tricuspid valve insufficiency. Pulmonary artery systolic pressure is 46 mmHg. Aortic Valve Trisinus/trileaflet aortic valve. Mild focal aortic valve thickening. Mild (1+) eccentric aortic valve insufficiency. Pulmonic Valve Normal pulmonic valve. Great Vessels Normal aortic root. The pulmonary artery is normal size. The inferior vena cava is dilated. Pericardium/Pleural Small (<1.0 cm) pericardial effusion. MMode/2D Measurements & Calculations LVIDd: 5.8 cm IVSd: 0.91 cm Ao root diam: 3.2 cm LVIDs: 4.6 cm LVPWd: 0.94 cm RVDd: 3.0 cm FS: 20.7 % LAV(MOD-bp): 71.0 ml LVAd ap4: 36.0 cm2 LVAd ap2: 42.0 cm2 LAV(MOD-bp) Indexed: 33.5 ml/m2 LVLd ap4: 8.1 cm LVLd ap2: 8.4 cm LAV(MOD-sp2): 62.7 ml EDV(MOD-sp4): 130.9 ml EDV(MOD-sp2): 178.4 ml LAV(MOD-sp4): 71.6 ml EDV(sp4-el): 136.1 ml EDV(sp2-el): 178.9 ml LVAs ap4: 26.7 cm2 LVAs ap2: 30.0 cm2 LVLs ap4: 7.3 cm LVLs ap2: 7.2 cm ESV(MOD-sp4): 78.8 ml ESV(MOD-sp2): 101.3 ml ESV(sp4-el): 82.1 ml ESV(sp2-el): 105.9 ml EF(MOD-sp4): 39.7 % EF(MOD-sp2): 43.3 % EF(sp4-el): 39.7 % SV(MOD-sp4): 52.0 ml SV(MOD-sp2): 77.2 ml SV(sp4-el): 54.0 ml SI(MOD-sp4): 24.6 ml/m2 SI(MOD-sp2): 36.4 ml/m2 LA A4 area: 22.1 cm2 LA dimension(2D): 4.8 cm RA A4 area: 23.7 cm2 TAPSE: 1.7 cm Doppler Measurements & Calculations MV E max riley: 110.6 cm/sec Lat Peak E' Riley: 8.4 cm/sec Med Peak E' Riley: 6.3 cm/sec E/E' lat: 13.2 E/E' med: 17.4 Ao V2 max: 153.1 cm/sec AI max riley: 423.7 cm/sec LV V1 max: 100.8 cm/sec Ao max P.4 mmHg AI max P.9 mmHg LV V1 max P.1 mmHg Ao V2 mean: 100.9 cm/sec LV V1 mean P.2 mmHg Ao mean P.8 mmHg AI dec slope: 230.4 cm/sec2 LV V1 mean: 67.3 cm/sec Ao V2 VTI: 30.1 cm AI P1/2t: 538.6 msec LV V1 VTI: 19.0 cm AV (velocity ratio): 0.63 PA V2 max: 82.0 cm/sec TR max riley: 318.5 cm/sec TR max P.6 mmHg ECHO/Echo Complete Interpretation Summary Normal LV size. The left ventricular ejection fraction is 40 %. Mild (1+) eccentric aortic valve insufficiency. There is mild to moderate global hypokinesis of the left ventricle. Moderate (2+) eccentric mitral valve insufficiency. Ordering Physician: Ariela Luciano Referring Physician: Butch Munoz Performed By: Rona Darling RDCS, DONNA
[2025-01-06 17:16] LABS: Platelet Estimate SLT DEC (ADEQ)
[2025-01-06 17:28] LABS: Troponin T High Sens 2 HR 57 ng/L (<=22)
[2025-01-06] MEDS: Carvedilol 3.125 MG TABLET PO (18:08)
[2025-01-06] MEDS: 0.9% Saline Lock 10 ML Syringe IV (18:08)
[2025-01-06 19:06] LABS: Troponin T High Sens 4 HR 54 ng/L (<=22)
--- NOTE | 2025-01-06 20:31 | PN.HOSP_ITS ---
Hospitalist Note CT head obtained earlier due to patient's complaint that when he reached for objects they were little bit further than he anticipated but that was not the case if he closed his left eye. CT showed left maxillary sinus disease and presence of hyperdense contents that could be seen with fungal etiology as well as punctate foci of air in the region of the cavernous sinus which could be related to IV access in the absence of trauma, infection is also possible but statistically less likely. Spoke with patient again who again confirms symptoms been present about a week and have not improved but have not worsened, he has no headache, no facial tenderness, no stuffy nose/nasal symptoms, no other visual alterations or other complaints. On exam extraocular movements intact and pupils equal, no tenderness on palpation over sinuses. Despite symptoms being stable over the past week and no overt abnormalities on exam, we have no ENT consultation available until next week so it was discussed with patient regarding possible need for transfer for subspecialist evaluation and ultimately he was agreeable. Spoke with [facility] transfer line who triaged to [facility] in [place]. Spoke with Dr. Holman, hospitalist, who is agreeable to accept patient in transfer if ENT was agreeable and asked if I would speak with ENT. Spoke with Dr. Knight with ENT and went over patient's case including history, presentation, and imaging. 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 He said that this is something that can be evaluated on an outpatient basis and is not something that emergently needs evaluated and that patient does not require transfer. Informed patient of this. Given that is still unclear why patient had these vision changes will obtain MRI, if negative will need follow-up with ophthalmology. Advised staff to notify with any concerns or changes.
[2025-01-06] MEDS: Niacin SA 500 MG Tablet PO (22:17)
[2025-01-06] MEDS: Latanoprost 0.005% 1 Bottle 2 DRP OPHTHALMIC (22:17)
[2025-01-06] MEDS: APIXABAN 2.5 MG TABLET (WCH) PO (22:17)
[2025-01-06] MEDS: Pravastatin 20 MG Tablet PO (22:17)
[2025-01-06] MEDS: BRINZOLAMIDE/BRIMONID TART 1 DROP DROPS.SUSP 1 DRP OPHTHALMIC (22:19)
[2025-01-07] VITALS (7 sets, daily range): BP systolic 94–118; BP diastolic 64–75; PULSE 63–89; RESP 16–18; TEMP 36.3–37; O2SAT 94–100; BMI 27.6
[2025-01-07 05:19] LABS: Absolute Lymphocyte Count 0.92 X10^3/uL (0.83-4.51); Absolute Neutrophil Count 2.5 X10^3/uL (2.0-7.7); Basophil# 0.02 X10^3/uL; Basophil% 0.5 % (0-1); Eosinophil# 0.11 X10^3/uL; Eosinophils% 2.6 % (0-5); Hematocrit 39.4 % (40-54); Hemoglobin 13.2 g/dL (13.0-16.5); Lymphocyte # 0.92 X10^3/ul (0.83-4.51); Lymphocyte % 21.5 % (19-41); Mean Corp Hgb Conc 33.5 g/dL (32-36); Mean Corpuscular Hgb 36.1 pg (27.0-32.0); Mean Corpuscular Volume 107.7 fL (80-94); Mean Platelet Vol. 11.8 fl (6.2-12.0); Monocyte# 0.67 X10^3/uL; Monocyte% 15.7 % (0-10); NRBC Flagged by Analyzer 0 % (0-5); Neutrophil # 2.54 X10^3/uL (2.7-7.7); Neutrophil % 59.5 % (47-70); POSITIVE COUNT YES; Platelet Count 76 K/mm3 (150-450); RBC Distribution Width SD 59.8 fl (35.1-43.9); Red Blood Count 3.66 M/mm3 (4.6-6.2); White Blood Count 4.3 K/mm3 (4.4-11.0)
[2025-01-07 05:46] LABS: Anion Gap 10 (5-15); BUN 37 mg/dL (4-19); BUN/Creat Ratio 25.5 RATIO (10-20); Calcium,Total 8.7 mg/dL (7.6-11.0); Carbon Dioxide 30.3 mmol/L (21.0-32.0); Chloride 98 mmol/L (98-108); Creatinine, Serum 1.44 mg/dL (0.70-1.20); EST Glomerular Filtration Rate 47 (>60); Estimated Creatinine Clearance 36.61 ml/min (50-250); Glucose 80 mg/dL (70-99); Sodium Level 138 mmol/L (133-145)
[2025-01-07] MEDS: Carvedilol 3.125 MG TABLET PO ×2 (09:33→16:51)
[2025-01-07] MEDS: Aspirin 81 MG TAB.CHEW PO (09:33)
[2025-01-07] MEDS: APIXABAN 2.5 MG TABLET (WCH) PO ×2 (09:33→21:57)
[2025-01-07] MEDS: Furosemide 40 MG/4 ML Vial IV ×2 (09:34→16:53)
[2025-01-07] MEDS: BRINZOLAMIDE/BRIMONID TART 1 DROP DROPS.SUSP 1 DRP OPHTHALMIC ×2 (09:34→21:58)
[2025-01-07] MEDS: Allopurinol 300 MG Tablet PO (09:34)
--- NOTE | 2025-01-07 09:34 | PN.HOSP_ITS ---
Reason for Visit Reason for Visit: Diagnoses Heart failure, unspecified (01/06/25) Subjective Subjective Patient is an 89-year-old gentleman with past medical history sent in for coronary artery disease with previous stent placement, paroxysmal atrial fibrillation who presented with progressive shortness of breath. An assessment of acute congestive heart failure made admitted to monitored bed for subsequent management Objective Data Objective Data Vital Signs: Vital Signs Temp Pulse Resp BP Pulse Ox O2 Del Method O2 Flow Rate 97.4 F L 63 18 105/69 100 Nasal Cannula 5 01/07/25 07:57 01/07/25 07:57 01/07/25 07:57 01/07/25 07:57 01/07/25 07:57 01/07/25 07:57 01/07/25 07:57 Oxygen Flow Rate (L/min) 5 Oxygen Delivery Method Nasal Cannula Weight: 87.5 kg Body Mass Index (BMI) 27.6 Intake & Output: Intake and Output for Last 24 Hours 01/05/25 01/06/25 01/07/25 23:59 23:59 23:59 Intake Total 360 / 360 Output Total 400 / 400 650 / 650 Balance -40 / -40 -650 / -650 Lab / Micro Data 01/07/25 04:24 01/07/25 04:24 Labs: Laboratory Results - last 24 hr 01/06/25 14:19: WBC 4.4, RBC 4.36 L, Hgb 15.8, Hct 46.9, MCV 107.6 H, MCH 36.2 H , MCHC 33.7, RDW Std Deviation 60.3 H, RDW Coeff of Yanet 15.0 H, Plt Count 98 L, MPV 10.5, Immature Gran % (Auto) 0.500, Neut % (Auto) 65.5, Lymph % (Auto) 18.1 L, [place] % (Auto) 13.8 H, Eos % (Auto) 1.6, Baso % (Auto) 0.5, Absolute Neuts (auto) 2.9, Absolute Lymphs (auto) 0.79 L, Nucleated RBC % 0.5, Platelet Estimate SLT DEC, PT 18.1 H, INR 1.5, APTT 41.0 H, Sodium 135, Potassium 3.7, C hloride 96 L, Carbon Dioxide 27.0, Anion Gap 13, BUN 33 H, Creatinine 1.51 H, E stim Creat Clear Calc 38.97 L, Est GFR (MDRD) Non-Af 44 L, BUN/Creatinine Ratio 22.1 H, Glucose 129 H, Calcium 9.4, Troponin T High Sens 65 H* D, NT pro BNP II 9617 H 01/06/25 16:20: Troponin T Hi Sens 4Hr 54 H* 01/06/25 16:45: Troponin T Hi Sens 2 Hr 57 H* 01/07/25 04:24: WBC 4.3 L, RBC 3.66 L, Hgb 13.2, Hct 39.4 L, MCV 107.7 H, MCH 36.1 H, MCHC 33.5, RDW Std Deviation 59.8 H, RDW Coeff of Yanet 15.0 H, Plt Count 76 L, MPV 11.8, Immature Gran % (Auto) 0.200, Neut % (Auto) 59.5, Lymph % (Auto) 21.5, [place] % (Auto) 15.7 H, Eos % (Auto) 2.6, Baso % (Auto) 0.5, Absolute Neuts (auto) 2.5, Absolute Lymphs (auto) 0.92, Nucleated RBC % 0, Sodium 138, P otassium 3.0 L, Chloride 98, Carbon Dioxide 30.3, Anion Gap 10, BUN 37 H, C reatinine 1.44 H, Estim Creat Clear Calc 36.61 L, Est GFR (MDRD) Non-Af 47 L, B UN/Creatinine Ratio 25.5 H, Glucose 80, Calcium 8.7 Radiography Diagnostic Testing: Radiology Impression Chest X-Ray 01/06/25 14:20 IMPRESSION: Cardiomegaly with mild congestion. Reading [facility] 01/06/25 16:44 IMPRESSION: 1. No acute intracranial abnormality. Senescent changes. 2. Bilateral enophthalmos. 3. Left maxillary sinus disease. Presence of hyperdense contents may be seen with fungal etiology. 4. Punctate foci of air in the region of the cavernous sinuses, which could be related to intravenous access in the absence of trauma. Infection is also possible but statistically less likely. Reading Location: [facility] Physical Exam Narrative GENERAL: cooperative but appears to be hard of hearing HEENT: Atraumatic; normocephalic EYES; Anicteric, Normal Conjunctiva NECK; supple, normal thyroid, RESPIRATORY: Diminished to auscultation CARDIOVASCULAR: Irregularly irregular GI: soft, normoactive bowel sounds, : No Renal angle tenderness; EXTREMITIES: 2+ bipedal edema no clubbing, MUSCULOSKELETAL: no muscle wasting NEURO: Awake; no lateralizing signs. SKIN: No Rash PSYCH; Flat affect Assessment & Plan Assessment/Plan (1) CHF (congestive heart failure): QUALIFIERS: Heart failure chronicity: acute Heart failure type: u nspecified Qualified Code(s): I50.9 - Heart failure, unspecified PLAN: Plan Patient is an 89-year-old gentleman with past medical history sent in for coronary artery disease with previous stent placement, paroxysmal atrial fibrillation who presented with progressive shortness of breath. An assessment of acute congestive heart failure made admitted to monitored bed for subsequent management 1. Acute hypoxia ? Secondary to acute congestive heart failure. Admitted to the monitored bed with treatment of the underlying etiology. Placed on oxygen titrated to keep saturation greater than 90. Plan is to assess patient for home oxygen needs prior to discharge 2. Acute congestive heart failure with reduced ejection fraction ? Patient previous echo from 2016 demonstrated preserved ejection fraction. Echo repeated on 12/18/2024 demonstrated LVEF of 40% with mild to moderate global hypokinesis of the left ventricle. Patient has been admitted to monitored bed manage with strict input and output, daily weight, fluid restriction low-sodium diet as well as diuretic therapy with furosemide 3. Elevated troponin ? Secondary to demand ischemia from fluid overload 4. Chronic kidney disease stage IIIb ? Monitoring kidney function with daily BMPs in view of patient being on furosemide 5. Gout ? Patient is on allopurinol did continue 6. Dyslipidemia ? Patient is on both pravastatin as well as niacin did continue 7. Vision changes in left eye - Patient specifically reports altered depth perception with his left eye but is able to see things without difficulty, given this vague and nonspecific focal complaint will obtain routine CT head to verify no significant abnormalities, suspect patient can have further workup outpatient if this is negative 8. Paroxysmal Atrial Fibrillation -Rate controlled with carvedilol. Patient was on systemic anticoagulation with apixaban did continue 9. Coronary artery disease ? With previous PCI in 2009 patient remains on guideline directed medical therapy 10. Thrombocytopenia ? Appears to be chronic patient platelet count has been ranging from 100-70 since 2002. Daily monitoring with CBC with differential ordered 11. DVT ppx - Not indicated, patient on full dose anticoagulation Time spent in the patient's overall evaluation,decision-making process, review of diagnostic data, adjustment of management, discussion with other providers, nursing nursing and ancillary staff involved in patient's care documentation, 55 Minutes Charges/Coding Visit Charges Inpatient E&M: 94853 [facility] Hosp L3
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
[2025-01-07] MEDS: Potassium Chloride Oral Tablet 20 MEQ PO ×2 (10:59→16:51)
--- NOTE | 2025-01-07 12:27 | MRI_ITS ---
PROCEDURE: BRAIN WITHOUT CONTRAST 01/07/2025 REASON FOR EXAM: LEFT EYE VISION CHANGES X1 WEEK TECHNIQUE: Noncontrast brain MRI. Multiplanar and multisequence images were obtained. FINDINGS: Brain: No mass, mass effect, hemorrhage or midline shift. Ventricles: Ventricles and sulci are prominent consistent with age-related involution. There is opacification of the left maxillary sinus. Major Intracranial Vessels: The right vertebral artery is dominant. The left vertebral is very small caliber normal vascular flow voids are seen in the anterior circulation and point hope ira of [place]. The patient has bilateral artificial lenses. Lenses and globes in menstrual septal is are otherwise intact Mastoids: Clear MRI/Brain without Contrast IMPRESSION: Opacification of left maxillary sinus. The left orbit globe and lens are other monique unremarkable. Reading [facility]
--- NOTE | 2025-01-07 13:54 | CASEMGMT ---
This RN CM noted that the pt does not have home oxygen. Pt is currently requiring additional oxygen and may qualify for home oxygen use. A verbal list of local in-network DME companies were provided to the pt at this time. Pt prefers [employer]. Green sheet on chart to help facilitate potential weekend DC. Pt states again that he feels safe returning home at the time of DC and denies further needs at this time.
[2025-01-07] MEDS: Niacin SA 500 MG Tablet PO (21:57)
[2025-01-07] MEDS: Pravastatin 20 MG Tablet PO (21:57)
[2025-01-07] MEDS: Latanoprost 0.005% 1 Bottle 2 DRP OPHTHALMIC (22:05)
[2025-01-08] VITALS (9 sets, daily range): BP systolic 104–113; BP diastolic 54–81; PULSE 64–87; RESP 14–20; TEMP 36.2–37.1; O2SAT 95–100; BMI 27.8
[2025-01-08] MEDS: 0.9% Saline Lock 10 ML Syringe IV ×3 (03:50→21:25)
[2025-01-08 04:35] LABS: Absolute Lymphocyte Count 0.81 X10^3/uL (0.83-4.51); Absolute Neutrophil Count 3.3 X10^3/uL (2.0-7.7); Basophil# 0.02 X10^3/uL; Basophil% 0.4 % (0-1); Eosinophil# 0.13 X10^3/uL; Eosinophils% 2.5 % (0-5); Hematocrit 39.4 % (40-54); Hemoglobin 13.2 g/dL (13.0-16.5); Lymphocyte # 0.81 X10^3/ul (0.83-4.51); Lymphocyte % 15.7 % (19-41); Mean Corp Hgb Conc 33.5 g/dL (32-36); Mean Corpuscular Hgb 36.2 pg (27.0-32.0); Mean Corpuscular Volume 107.9 fL (80-94); Mean Platelet Vol. 12.2 fl (6.2-12.0); Monocyte# 0.87 X10^3/uL; Monocyte% 16.9 % (0-10); NRBC Flagged by Analyzer 0 % (0-5); Neutrophil # 3.31 X10^3/uL (2.7-7.7); Neutrophil % 64.1 % (47-70); POSITIVE COUNT YES; Platelet Count 79 K/mm3 (150-450); RBC Distribution Width SD 60.6 fl (35.1-43.9); Red Blood Count 3.65 M/mm3 (4.6-6.2); White Blood Count 5.2 K/mm3 (4.4-11.0)
[2025-01-08 05:02] LABS: Phosphorus 3.4 mg/dL (2.7-4.5)
[2025-01-08 05:18] LABS: Anion Gap 10 (5-15); BUN 38 mg/dL (4-19); Calcium,Total 8.6 mg/dL (7.6-11.0); Carbon Dioxide 29.7 mmol/L (21.0-32.0); Chloride 100 mmol/L (98-108); Creatinine, Serum 1.31 mg/dL (0.70-1.20); EST Glomerular Filtration Rate 52 (>60); Estimated Creatinine Clearance 43.58 ml/min (50-250); Glucose 114 mg/dL (70-99); Potassium 3.4 mmol/L (3.3-5.1); Sodium Level 140 mmol/L (133-145)
--- NOTE | 2025-01-08 07:35 | PN.HOSP_ITS ---
Reason for Visit Reason for Visit: Diagnoses Heart failure, unspecified (01/06/25) Subjective Subjective Patient seen tolerating diuretic therapy well so far. Patient is net negative fluid balance of 1 L over the past 24 hours Objective Data Objective Data Vital Signs: Vital Signs Temp Pulse Resp BP Pulse Ox O2 Del Method O2 Flow Rate 98.7 F 64 16 111/71 97 Nasal Cannula 3 01/08/25 03:46 01/08/25 03:46 01/08/25 03:46 01/08/25 03:46 01/08/25 03:46 01/08/25 03:50 01/08/25 03:50 Oxygen Flow Rate (L/min) 3 Oxygen Delivery Method Nasal Cannula Weight: 88.1 kg Body Mass Index (BMI) 27.8 Intake & Output: Intake and Output for Last 24 Hours 01/06/25 01/07/25 01/08/25 23:59 23:59 23:59 Intake Total 360 / 360 540 / 540 0 / 0 Output Total 400 / 400 1650 / 1650 600 / 600 Balance -40 / -40 -1110 / -1110 -600 / -600 Lab / Micro Data 01/08/25 03:27 01/08/25 03:27 Labs: Laboratory Results - last 24 hr 01/08/25 03:27: WBC 5.2, RBC 3.65 L, Hgb 13.2, Hct 39.4 L, MCV 107.9 H, MCH 36.2 H, MCHC 33.5, RDW Std Deviation 60.6 H, RDW Coeff of Aynet 15.0 H, Plt Count 79 L, MPV 12.2 H, Immature Gran % (Auto) 0.400, Neut % (Auto) 64.1, Lymph % (Auto) 15.7 L, [place] % (Auto) 16.9 H, Eos % (Auto) 2.5, Baso % (Auto) 0.4, Absolute Neuts (auto) 3.3, Absolute Lymphs (auto) 0.81 L, Nucleated RBC % 0, Sodium 140, Potassium 3.4, Chloride 100, Carbon Dioxide 29.7, Anion Gap 10, BUN 38 H, C reatinine 1.31 H, Estim Creat Clear Calc 43.58 L, Est GFR (MDRD) Non-Af 52 L, B UN/Creatinine Ratio 29.0 H, Glucose 114 H, Calcium 8.6, Phosphorus 3.4, Magnesium 2.0 Radiography Diagnostic Testing: Radiology Impression Echocardiogram 01/06/25 16:44 Interpretation Summary Normal LV size. The left ventricular ejection fraction is 40 %. Mild (1+) eccentric aortic valve insufficiency. There is mild to moderate global hypokinesis of the left ventricle. Moderate (2+) eccentric mitral valve insufficiency. Ordering Physician: Ariela Luciano Referring Physician: Butch Munoz Performed By: Rona Darling, LUCRETIACS, RVT Brain MRI 01/07/25 12:27 IMPRESSION: Opacification of left maxillary sinus. The left orbit globe and lens are otherwise unremarkable. Reading Location: [facility] Physical Exam Narrative GENERAL: cooperative but appears to be hard of hearing HEENT: Atraumatic; normocephalic EYES; Anicteric, Normal Conjunctiva NECK; supple, normal thyroid, RESPIRATORY: Diminished to auscultation CARDIOVASCULAR: Irregularly irregular GI: soft, normoactive bowel sounds, : No Renal angle tenderness; EXTREMITIES: 2+ bipedal edema no clubbing, MUSCULOSKELETAL: no muscle wasting NEURO: Awake; no lateralizing signs. SKIN: No Rash PSYCH; Flat affect Assessment & Plan Assessment/Plan (1) CHF (congestive heart failure): QUALIFIERS: Heart failure chronicity: acute Heart failure type: u nspecified Qualified Code(s): I50.9 - Heart failure, unspecified PLAN: Plan Patient is an 89-year-old gentleman with past medical history sent in for coronary artery disease with previous stent placement, paroxysmal atrial fibrillation who presented with progressive shortness of breath. An assessment of acute congestive heart failure made admitted to monitored bed for subsequent management 1. Acute hypoxia ? Secondary to acute congestive heart failure. Admitted to the monitored bed with treatment of the underlying etiology. Placed on oxygen titrated to keep saturation greater than 90. Plan is to assess patient for home oxygen needs prior to discharge 2. Acute congestive heart failure with reduced ejection fraction ? Patient previous echo from 2016 demonstrated preserved ejection fraction. Echo repeated on 12/18/2024 demonstrated LVEF of 40% with mild to moderate global hypokinesis of the left ventricle. Patient has been admitted to monitored bed manage with strict input and output, daily weight, fluid restriction low-sodium diet as well as diuretic therapy with furosemide ? 01/08/2025; Patient seen tolerating diuretic therapy well so far. Patient is net negative fluid balance of 1 L over the past 24 hours 3. Elevated troponin ? Secondary to demand ischemia from fluid overload 4. Chronic kidney disease stage IIIb ? Monitoring kidney function with daily BMPs in view of patient being on furosemide 5. Gout ? Patient is on allopurinol did continue 6. Dyslipidemia ? Patient is on both pravastatin as well as niacin did continue 7. Vision changes in left eye - Patient specifically reports altered depth perception with his left eye but is able to see things without difficulty, given this vague and nonspecific focal complaint will obtain routine CT head to verify no significant abnormalities, suspect patient can have further workup outpatient if this is negative 8. Paroxysmal Atrial Fibrillation -Rate controlled with carvedilol. Patient was on systemic anticoagulation with apixaban did continue 9. Coronary artery disease ? With previous PCI in 2009 patient remains on guideline directed medical therapy 10. Thrombocytopenia ? Appears to be chronic patient platelet count has been ranging from 100-70 since 2002. Daily monitoring with CBC with differential ordered 11. DVT prophylaxis - Not indicated, patient on full dose anticoagulation 12. Hypokalemia ? Secondary to patient being on diuretic therapy corrected per protocol Charges/Coding Visit Charges Inpatient E&M: 33007 Subs Hosp L2
[2025-01-08] MEDS: Potassium Chloride Oral Tablet 20 MEQ PO ×2 (09:42→17:15)
[2025-01-08] MEDS: Carvedilol 3.125 MG TABLET PO ×2 (09:42→17:15)
[2025-01-08] MEDS: Aspirin 81 MG TAB.CHEW PO (09:42)
[2025-01-08] MEDS: BRINZOLAMIDE/BRIMONID TART 1 DROP DROPS.SUSP 1 DRP OPHTHALMIC ×2 (09:43→21:24)
[2025-01-08] MEDS: Furosemide 40 MG/4 ML Vial IV ×2 (09:43→17:15)
[2025-01-08] MEDS: APIXABAN 2.5 MG TABLET (WCH) PO ×2 (09:43→21:24)
[2025-01-08] MEDS: Allopurinol 300 MG Tablet PO (09:43)
[2025-01-08] MEDS: Pravastatin 20 MG Tablet PO (21:24)
[2025-01-08] MEDS: Latanoprost 0.005% 1 Bottle 2 DRP OPHTHALMIC (21:24)
[2025-01-08] MEDS: Niacin SA 500 MG Tablet PO (21:24)
[2025-01-08] MEDS: Menthol/Lanolin/Calamine/Znox 113 GM Tube 1 APPLIC TOPICAL (21:24)
[2025-01-09] VITALS (8 sets, daily range): BP systolic 109–123; BP diastolic 67–83; PULSE 64–98; RESP 18–20; TEMP 36.6–37.3; O2SAT 84–98; BMI 27.8
[2025-01-09 05:03] LABS: Absolute Lymphocyte Count 0.94 X10^3/uL (0.83-4.51); Absolute Neutrophil Count 3.3 X10^3/uL (2.0-7.7); Basophil# 0.02 X10^3/uL; Basophil% 0.4 % (0-1); Eosinophil# 0.15 X10^3/uL; Eosinophils% 2.8 % (0-5); Hematocrit 40.7 % (40-54); Hemoglobin 13.8 g/dL (13.0-16.5); Lymphocyte # 0.94 X10^3/ul (0.83-4.51); Lymphocyte % 17.8 % (19-41); Mean Corp Hgb Conc 33.9 g/dL (32-36); Mean Corpuscular Hgb 36.1 pg (27.0-32.0); Mean Corpuscular Volume 106.5 fL (80-94); Mean Platelet Vol. 11.5 fl (6.2-12.0); Monocyte# 0.87 X10^3/uL; Monocyte% 16.5 % (0-10); NRBC Flagged by Analyzer 0 % (0-5); Neutrophil # 3.27 X10^3/uL (2.7-7.7); Neutrophil % 62.1 % (47-70); POSITIVE COUNT YES; Platelet Count 84 K/mm3 (150-450); RBC Distribution Width CV 14.9 % (11.6-14.6); RBC Distribution Width SD 59.2 fl (35.1-43.9); Red Blood Count 3.82 M/mm3 (4.6-6.2); White Blood Count 5.3 K/mm3 (4.4-11.0)
[2025-01-09 05:26] LABS: Anion Gap 11 (5-15); BUN 38 mg/dL (4-19); BUN/Creat Ratio 30.6 RATIO (10-20); Calcium,Total 8.8 mg/dL (7.6-11.0); Carbon Dioxide 28.6 mmol/L (21.0-32.0); Chloride 101 mmol/L (98-108); Creatinine, Serum 1.25 mg/dL (0.70-1.20); EST Glomerular Filtration Rate 55 (>60); Estimated Creatinine Clearance 45.67 ml/min (50-250); Glucose 118 mg/dL (70-99); Potassium 3.4 mmol/L (3.3-5.1); Sodium Level 141 mmol/L (133-145)
--- NOTE | 2025-01-09 08:06 | DS.PCM_ITS ---
Providers Date of Admission: 01/06/25 Date of Discharge: 01/09/25 Primary Care Physician: Dr. Butch Munoz MD Reason For Visit: FLUID OVERLOAD Diagnosis Discharge Diagnosis (1) CHF (congestive heart failure): Status: Acute Code(s): I50.9 - Heart failure, unspecified Qualifiers: Heart failure chronicity: acute Heart failure type: unspecified Q ualified Code(s): I50.9 - Heart failure, unspecified Plan Patient is an 89-year-old gentleman with past medical history sent in for coronary artery disease with previous stent placement, paroxysmal atrial fibrillation who presented with progressive shortness of breath. An assessment of acute congestive heart failure made admitted to monitored bed for subsequent management 1. Acute hypoxia ? Secondary to acute congestive heart failure. Admitted to the monitored bed with treatment of the underlying etiology. Placed on oxygen titrated to keep saturation greater than 90. Plan is to assess patient for home oxygen needs prior to discharge ? I have reviewed the oxygen testing, and this patient qualifies for the home equipment and portability. The patient is mobile in the home and the community. 2. Acute congestive heart failure with reduced ejection fraction ? Patient previous echo from 2017 demonstrated preserved ejection fraction. Echo repeated on 12/18/2024 demonstrated LVEF of 40% with mild to moderate global hypokinesis of the left ventricle. Patient has been admitted to monitored bed manage with strict input and output, daily weight, fluid restriction low-sodium diet as well as diuretic therapy with furosemide ? 01/08/2025; Patient seen tolerating diuretic therapy well so far. Patient is net negative fluid balance of 1 L over the past 24 hours ? 01/09/2025; adjusted patient Lasix dose with addition of 40 mg of p.o. Lasix in the evening in addition to his 80 mg in the morning 3. Elevated troponin ? Secondary to demand ischemia from fluid overload 4. Chronic kidney disease stage IIIb ? Monitoring kidney function with daily BMPs in view of patient being on furosemide 5. Gout ? Patient is on allopurinol did continue 6. Dyslipidemia ? Patient is on both pravastatin as well as niacin did continue 7. Vision changes in left eye - Patient specifically reports altered depth perception with his left eye but is able to see things without difficulty, given this vague and nonspecific focal complaint will obtain routine CT head to verify no significant abnormalities, suspect patient can have further workup outpatient if this is negative 8. Paroxysmal Atrial Fibrillation -Rate controlled with carvedilol. Patient was on systemic anticoagulation with apixaban did continue 9. Coronary artery disease ? With previous PCI in 2009 patient remains on guideline directed medical therapy 10. Thrombocytopenia ? Appears to be chronic patient platelet count has been ranging from 100-70 since 2002. Daily monitoring with CBC with differential ordered 11. DVT prophylaxis - Not indicated, patient on full dose anticoagulation 12. Hypokalemia ? Secondary to patient being on diuretic therapy corrected per protocol ? 01/09/2025; prescription written for potassium supplement on discharge Medications at Discharge Home Medications allopurinol 300 mg tablet 300 mg PO DAILY 09/13/17 amoxicillin 500 mg tablet 2,000 mg PO DAILY PRN DENTIST 09/13/17 bimatoprost 0.01 % eye drops (Lumigan) 1 drp ophthalmic (eye) QHS 09/13/17 carvedilol 3.125 mg tablet (Coreg) 3.125 mg PO BID 09/13/17 [id number] 300 mcg-K 60 mcg-lycop 600 mcg-lutein 300 mcg tablet (Centrum Silver Men) 1 tab PO DAILY 09/13/17 niacin 500 mg tablet,extended release 24 hr (Niaspan) 500 mg PO QHS 09/13/17 nitroglycerin 0.4 mg sublingual tablet 0.4 mg sublingual Q5-15M PRN chest pain 09/13/17 pravastatin 20 mg tablet 20 mg PO QHS 09/14/17 brinzolamide 1 %-brimonidine 0.2 % eye drops,suspension (Simbrinza) 1 drp ophthalmic (eye) BID 02/10/19 apixaban 2.5 mg tablet (Eliquis) 2.5 mg PO BID #60 tabs 12/07/24 lutein 10 mg tablet 10 mg PO DAILY 12/07/24 aspirin 81 mg tablet 81 mg PO QDAY 01/06/25 furosemide 40 mg tablet 80 mg PO DAILY 01/06/25 furosemide 40 mg tablet (Lasix) 40 mg PO DAILY #60 tabs 01/09/25 potassium chloride 20 mEq tablet,extended release(part/cryst) 20 meq PO BIDCM 30 days #60 tabs 01/09/25 Hospital Course Procedures 2-D Echocardiogram Summary of Care Provided Minutes Spent on Discharge: 35 Physical Exam Narrative GENERAL: cooperative but appears to be hard of hearing HEENT: Atraumatic; normocephalic EYES; Anicteric, Normal Conjunctiva NECK; supple, normal thyroid, RESPIRATORY: Diminished to auscultation CARDIOVASCULAR: Irregularly irregular GI: soft, normoactive bowel sounds, : No Renal angle tenderness; EXTREMITIES: 2+ bipedal edema no clubbing, MUSCULOSKELETAL: no muscle wasting NEURO: Awake; no lateralizing signs. SKIN: No Rash PSYCH; Flat affect Weight / BMI Weight Weight: 87.8 kg Body Mass Index (BMI) 27.8 ABG / Lab / Microbiology Data 01/09/25 04:41 01/09/25 04:41 Laboratory: Laboratory Results - last 24 hr 01/09/25 04:41: WBC 5.3, RBC 3.82 L, Hgb 13.8, Hct 40.7, MCV 106.5 H, MCH 36.1 H , MCHC 33.9, RDW Std Deviation 59.2 H, RDW Coeff of Yanet 14.9 H, Plt Count 84 L, MPV 11.5, Immature Gran % (Auto) 0.400, Neut % (Auto) 62.1, Lymph % (Auto) 17.8 L, [place] % (Auto) 16.5 H, Eos % (Auto) 2.8, Baso % (Auto) 0.4, Absolute Neuts (auto) 3.3, Absolute Lymphs (auto) 0.94, Nucleated RBC % 0, Sodium 141, Potassium 3.4, Chloride 101, Carbon Dioxide 28.6, Anion Gap 11, BUN 38 H, C reatinine 1.25 H, Estim Creat Clear Calc 45.67 L, Est GFR (MDRD) Non-Af 55 L, B UN/Creatinine Ratio 30.6 H, Glucose 118 H, Calcium 8.8 D/C Instructions Discharge Diet: 8 Cup Fluid Restriction and 2000 mg Sodium Diet Discharge Activity: Return to Normal Activity Call your doctor if you observe: Fever of 101 or Higher, Shortness of breath, Fainting spells and Chest pain DC O2, CPAP, BIPAP Needs Home O2 Discharge instructions: Yes Type of respiratory needs?: Oxygen Oxygen frequency: With Ambulation Oxygen liters per minute during Ambulation: 2 DC home with Oxygen: Yes Home O2 MD Review: I have reviewed the oxygen testing, and the patient qualifies for home oxygen equipment and portability. The patient is mobile in the home and the community. Meaningful Use Info Meaningful Use Meaningful Use Diagnoses (Choose all that apply): CHF CHF SHARON/ARB ordered at discharge?: No Reason SHARON/ARB not ordered?: Allergy Documented LVEF (%): 40 Ischemic Stroke Statin Dosing Therapy Reference: STATIN DOSE THERAPY REFERENCE: * Patients > 75 years receive moderate or high dose statin therapy. * Patients 75 years or YOUNGER should receive HIGH intensity statin dose unless contraindicated. You will be required to document reason for non-treatment if statin daily dose does not meet guidelines. HIGH DOSE STATIN THERAPY DAILY Atorvastatin > than or = to 40 mg Rosuvastatin > than or = to 20 mg Amlodipine + Atorvastatin > than or = to 2.5/40 mg Ezetimibe + Simvastatin 10/80 mg Simvastatin 80mg Discharge Plan Admission Admit Date/Time: 01/06/25 15:46 Attending Provider: Abundio Hurtado Primary Care Provider: Butch Munoz Consulting Providers: Ariela Luciano Discharge Orders/Prescriptions Prescriptions: New potassium chloride 20 mEq Tablet,Er Particles/Crystals 20 meq PO BIDCM 30 Days Qty: 60 0RF furosemide [Lasix] 40 mg tablet 40 mg PO DAILY Qty: 60 0RF Rx Instructions: take at 4pm Continued pravastatin 20 mg tablet 20 mg PO QHS allopurinol 300 mg tablet 300 mg PO DAILY nitroglycerin 0.4 mg tablet, sublingual 0.4 mg SUBLINGUAL Q5-15M PRN (Reason: chest pain) niacin [Niaspan Extended-Release] 500 mg tablet extended release 24 hr 500 mg PO QHS carvedilol [Coreg] 3.125 mg tablet 3.125 mg PO BID amoxicillin 500 mg tablet 2,000 mg PO DAILY PRN (Reason: DENTIST) Patient Comments: 30-60 minutes prior to dental procedure Lumigan 0.01 % drops 1 drp OPHTHALMIC QHS Rx Instructions: 1 DROP IN BOTH EYES Centrum Silver Men 300-600-300 mcg tablet 1 tab PO DAILY Simbrinza 1-0.2 % drops,suspension 1 drp OPHTHALMIC BID aspirin 81 mg tablet 81 mg PO QDAY furosemide 40 mg tablet 80 mg PO DAILY lutein 10 mg tablet 10 mg PO DAILY Rx Instructions: give with meal/snack Eliquis 2.5 mg tablet 2.5 mg PO BID Qty: 60 0RF Referrals / Follow Up: Butch Munoz MD [Primary Care Provider] - Within 2 Weeks Disposition Disposition (needs filled in before D/C Order can be placed): Home, Self Care Charges/Coding Visit Charges Inpatient E&M: 88004 Disch Hosp >30min
[2025-01-09] MEDS: Menthol/Lanolin/Calamine/Znox 113 GM Tube 1 APPLIC TOPICAL (10:05)
[2025-01-09] MEDS: APIXABAN 2.5 MG TABLET (WCH) PO (10:05)
[2025-01-09] MEDS: Potassium Chloride Oral Tablet 20 MEQ PO (10:05)
[2025-01-09] MEDS: BRINZOLAMIDE/BRIMONID TART 1 DROP DROPS.SUSP 1 DRP OPHTHALMIC (10:05)
[2025-01-09] MEDS: Allopurinol 300 MG Tablet PO (10:05)
[2025-01-09] MEDS: Aspirin 81 MG TAB.CHEW PO (10:05)
[2025-01-09] MEDS: Carvedilol 3.125 MG TABLET PO (10:07)
[2025-01-09] MEDS: 0.9% Saline Lock 10 ML Syringe IV ×2 (10:07→15:25)
[2025-01-09] MEDS: Furosemide 40 MG/4 ML Vial IV (10:07)
[2025-01-09] MEDS: Acetaminophen 325 MG Tablet 650 MG PO (12:59)
[2025-01-09] MEDS: Ketorolac 15 MG/ML Vial IV (15:24)
== END 2025-01-09 16:20 | disposition home or self-care (01) | DRG 291 ==
LOC: ED 15:30 → PCU 16:13
PROVIDERS: Admitting Provider Internal Medicine; Emergency Provider Emergency Medicine; PCP Family Medicine; Referring Provider Internal Medicine; Visit Provider Internal Medicine
DX: I13.0 Hypertensive heart and chronic kidney disease with heart failure and stage 1 through stage 4 chronic kidney disease, or unspecified chronic kidney disease (principal); I50.23 Acute on chronic systolic (congestive) heart failure; I24.89 Other forms of acute ischemic heart disease; D69.6 Thrombocytopenia, unspecified; Z66 Do not resuscitate; N18.32 Chronic kidney disease, stage 3b; I48.0 Paroxysmal atrial fibrillation; E78.5 Hyperlipidemia, unspecified; E87.6 Hypokalemia; I25.10 Atherosclerotic heart disease of native coronary artery without angina pectoris; M10.9 Gout, unspecified; H53.9 Unspecified visual disturbance; J32.0 Chronic maxillary sinusitis; I25.2 Old myocardial infarction; Z79.01 Long term (current) use of anticoagulants; I49.3 Ventricular premature depolarization; R09.02 Hypoxemia; Z79.82 Long term (current) use of aspirin; Z79.899 Other long term (current) drug therapy; Z95.5 Presence of coronary angioplasty implant and graft
CPT/HCPCS: 36415; 70450; 70551; 71045; 80048; 83735; 83880; 84100; 84484; 85025; 85610; 85730; 93005; 93306; 94668; 97116; 97162; 97166; 97530; 97535; 99285; A4216; J1938

== ENCOUNTER → 2025-01-27 | Outpatient (CLI) | payer MEDICARE, SELFPAY ==
[2025-01-27 17:53] LABS: Anion Gap 10 (5-15); BUN 36 mg/dL (4-19); BUN/Creat Ratio 26.5 RATIO (10-20); Calcium,Total 9.1 mg/dL (7.6-11.0); Carbon Dioxide 30.5 mmol/L (21.0-32.0); Chloride 97 mmol/L (98-108); Creatinine, Serum 1.34 mg/dL (0.70-1.20); EST Glomerular Filtration Rate 51 (>60); Glucose 132 mg/dL (70-99); Potassium 3.8 mmol/L (3.3-5.1); Sodium Level 138 mmol/L (133-145)
== END | disposition home or self-care (01) ==
LOC: LAB 16:30
PROVIDERS: PCP Family Medicine; Referring Provider Physician Assistant Medical; Visit Provider Physician Assistant Medical
DX: N18.30 Chronic kidney disease, stage 3 unspecified (principal)
CPT/HCPCS: 36415; 80048

== ENCOUNTER 2025-02-09 11:21 | Inpatient (IN) | payer MEDICARE, SELFPAY ==
[2025-02-09] VITALS (16 sets, daily range): BP systolic 73–106; BP diastolic 40–70; PULSE 67–86; RESP 12–23; TEMP 36.5–37.3; O2SAT 93–99; BMI 21.5; BMI 21.6
--- NOTE | 2025-02-09 11:29 | RAD_ITS ---
PROCEDURE: CHEST PA AND LATERAL 02/09/2025 REASON FOR EXAM: WEAKNESS TECHNIQUE: CHEST PA AND LATERAL COMPARISON: Prior study dated January 06, 2025. FINDINGS: Hardware: EKG electrodes are seen. Heart: Mild cardiomegaly Mediastinum: Calcification of the aortic arch. Lungs: Infiltration at the left lung base with small pleural effusion. Elevation of the right hemidiaphragm. Bones: Degenerative changes are identified within the thoracic spine. RAD/Chest PA and Lateral IMPRESSION: Small left pleural effusion with left basilar infiltration and/or atelectasis. Reading Location: [id number]
--- NOTE | 2025-02-09 11:43 | EDS_ITS ---
HPI History of Present Illness Chief Complaint: Complaint Narrative Narrative: Patient is a 81-year-old male with past medical history of hypertension, hyperlipidemia, chronic kidney disease, atrial fibrillation on Eliquis, heart failure who presented to the emergency department with chief complaint of generalized weakness inability to get up out of bed this morning he felt extremely weak he said. He gets yesterday around 4 PM he states that he had a fall because he felt so weak he notes that he fell backwards but denies hitting his head denies passing out losing consciousness. He states that he is complaining of painful urination. Per EMS the house was very hot as they do not have central air in the home but daughter at bedside states that there is another house that he could have gone to that has central air however he was refusing he states that this was his whether and he did not believe he needed air conditioning. [facility] Medical History (Updated 02/09/25 @ 15:11 by Karol Fair) DVT (deep venous thrombosis) Gout Atherosclerosis of coronary artery of [place] heart without angina pectoris Hypertension Hyperlipidemia Old inferior wall myocardial infarction Home Medications ?Medication ?Instructions ?Recorded ?Last Taken ?Type allopurinol 300 mg tablet 300 mg PO DAILY 09/13/17 History amoxicillin 500 mg tablet 2,000 mg PO DAILY PRN DENTIS T 09/13/17 Unknown History bimatoprost 0.01 % eye drops 1 drp ophthalmic (eye) QH S 09/13/17 12/07/24 History ([place]) carvedilol 3.125 mg tablet (Coreg) 3.125 mg PO BID 02/09/25 History [id number]-[id number] 300 mcg-K 60 1 tab PO DAILY 09/13/17 02/09/25 History mcg-lycop 600 mcg-lutein 300 mcg tablet (Centrum Silver Men) niacin 500 mg tablet,extended 500 mg PO QHS 09/13/17 0 12/06/24 History release 24 hr (Niaspan) nitroglycerin 0.4 mg sublingual 0.4 mg sublingual Q5-1 5M PRN chest 09/13/17 Unknown History tablet pain pravastatin 20 mg tablet 20 mg PO DAILY 09/14/17 06/02/08 History brinzolamide 1 %-brimonidine 0.2 % 1 drp ophthalmic (e ye) BID 02/10/19 Unknown History eye drops,suspension (Simbrinza) apixaban 2.5 mg tablet (Eliquis) 2.5 mg PO BID #60 tab s 12/07/24 02/09/25 Rx lutein 10 mg tablet 10 mg PO DAILY 12/07/2401/16 History potassium chloride 20 mEq 20 meq PO BIDCM 30 days #60 tabs 01/09/25 02/09/25 Rx tablet,extended release(part/cryst) furosemide 40 mg tablet (Lasix) 40 mg PO BID 01/27/25 02/09/25 History triamcinolone acetonide 0.025 % 1 applic topical BID 0 01/27/25 Unknown History topical cream Allergy/AdvReac Type Severity Reaction Status Date / Time SHARON Inhibitors AdvReac Hypotensive Verified 02/09/25 15:09 Family History Mother , AGe 71 Congestive heart failure Sister , Age 66 CAD (coronary artery disease) Breast cancer S/P CABG (coronary artery bypass graft) Surgical History H/O bilateral inguinal hernia repair H/O bilateral hip replacements H/O right coronary artery stent placement (06/13/10) Social History household members: spouse housing: house current occupational status: retired Smoking Status: Never smoker ROS ROS ED ROS Narrative Constitutional: Denies headache, lightness, dizziness, fevers, chills
--- NOTE | 2025-02-09 11:43 | EX.ED.DYSGE1 ---
HPI History of Present Illness Chief Complaint: Complaint Narrative Narrative: Patient is a 81-year-old male with past medical history of hypertension, hyperlipidemia, chronic kidney disease, atrial fibrillation on Eliquis, heart failure who presented to the emergency department with chief complaint of generalized weakness inability to get up out of bed this morning he felt extremely weak he said. He gets yesterday around 4 PM he states that he had a fall because he felt so weak he notes that he fell backwards but denies hitting his head denies passing out losing consciousness. He states that he is complaining of painful urination. Per EMS the house was very hot as they do not have central air in the home but daughter at bedside states that there is another house that he could have gone to that has central air however he was refusing he states that this was his whether and he did not believe he needed air conditioning. [facility] Medical History (Updated 02/09/25 @ 15:11 by Karol Fair) DVT (deep venous thrombosis) Gout Atherosclerosis of coronary artery of [place] heart without angina pectoris Hypertension Hyperlipidemia Old inferior wall myocardial infarction Home Medications ?Medication ?Instructions ?Recorded ?Last Taken ?Type allopurinol 300 mg tablet 300 mg PO DAILY 09/13/17 02/09/25 History amoxicillin 500 mg tablet 2,000 mg PO DAILY PRN DENTIST 09/13/17 Unknown History bimatoprost 0.01 % eye drops 1 drp ophthalmic (eye) QHS 09/13/17 12/07/24 History (Clau) carvedilol 3.125 mg tablet (Coreg) 3.125 mg PO BID 09/13/17 02/09/25 History hbyselju-nx-qimto 300 mcg-K 60 1 tab PO DAILY 09/13/17 02/09/25 History mcg-lycop 600 mcg-lutein 300 mcg tablet (Centrum Silver Men) niacin 500 mg tablet,extended 500 mg PO QHS 09/13/17 12/06/24 History release 24 hr (Niaspan) nitroglycerin 0.4 mg sublingual 0.4 mg sublingual Q5-15M PRN chest 09/13/17 Unknown History tablet pain pravastatin 20 mg tablet 20 mg PO DAILY 09/14/17 02/09/25 History brinzolamide 1 %-brimonidine 0.2 % 1 drp ophthalmic (eye) BID 02/10/19 Unknown History eye drops,suspension (Simbrinza) apixaban 2.5 mg tablet (Eliquis) 2.5 mg PO BID #60 tabs 12/07/24 02/09/25 Rx lutein 10 mg tablet 10 mg PO DAILY 12/07/24 02/09/25 History potassium chloride 20 mEq 20 meq PO BIDCM 30 days #60 tabs 01/09/25 02/09/25 Rx tablet,extended release(part/cryst) furosemide 40 mg tablet (Lasix) 40 mg PO BID 01/27/25 02/09/25 History triamcinolone acetonide 0.025 % 1 applic topical BID 01/27/25 Unknown History topical cream Allergy/AdvReac Type Severity Reaction Status Date / Time SHARON Inhibitors AdvReac Hypotensive Verified 02/09/25 15:09 Family History Mother , AGe 71 Congestive heart failure Sister , Age 66 CAD (coronary artery disease) Breast cancer S/P CABG (coronary artery bypass graft) Surgical History H/O bilateral inguinal hernia repair H/O bilateral hip replacements H/O right coronary artery stent placement (06/13/10) Social History household members: spouse housing: house current occupational status: retired Smoking Status: Never smoker ROS ROS ED ROS Narrative Constitutional: Denies headache, lightness, dizziness, fevers, chills Eyes: Denies change in vision double vision blurry vision Cardiovascular: Denies chest pain Respiratory: Denies shortness of breath coughing wheezing Abdomen: Denies abdominal pain nausea vomit diarrhea : Complains of painful urination as noted above Neurological: Denies numbness, wheeze, tingling Musculoskeletal: Denies back pain Skin: Denies any rashes or lesions EXAM Physical Exam Narrative Exam Narrative: General: Patient was lying in bed rest comfortably did not appear to be acute distress Head: Atraumatic, normocephalic Eyes: PERRL bilaterally, EOMI blood, no conjunctival injection noted Neck: Soft, supple, trachea midline no tenderness palpation midline cervical spine Cardiovascular: Regular rate and rhythm Respiratory: Clear to auscultation bilaterally Abdomen: Soft, nondistended, no tenderness palpation Extremities: +3/5 strength noted in the bilateral upper and lower extremities, radial pulses +2/4 in the bilateral extremities, no pedal edema on exam Neurological: Patient following commands knew that he was at the hospital year is 2024 Skin: Warm, dry, tact no rashes or lesions noted Const Vital Signs: 02/09/25 11:21 02/09/25 11:46 02/09/25 11:51 Temperature 99 F 99 F Temperature Source Temporal Oral Pulse Rate 75 79 Respiratory Rate 21 H 23 H Blood Pressure 84/44 L 73/52 L Blood Pressure Mean 57 59 Pulse Ox 99 94 94 Oxygen Delivery Method Room Air Room Air Room Air Oxygen Flow Rate (L/min) 02/09/25 12:15 02/09/25 12:25 02/09/25 14:00 Temperature 99.1 F 98.9 F Temperature Source Oral Oral Pulse Rate 75 72 67 Respiratory Rate 19 H 16 13 Blood Pressure 82/52 L 82/52 L 85/60 L Blood Pressure Mean 62 62 68 Pulse Ox 94 Oxygen Delivery Method Nasal Cannula Oxygen Flow Rate (L/min) 2 02/09/25 15:00 Temperature 98.9 F Temperature Source Oral Pulse Rate 70 Respiratory Rate 18 Blood Pressure 83/51 L Blood Pressure Mean 61 Pulse Ox Oxygen Delivery Method Oxygen Flow Rate (L/min) MDM MDM MDM Narrative Medical decision making narrative: Patient is a 89-year-old male who presented to the emergency department the chief complaint of generalized weakness and painful urination. On the differential diagnosis includes but limited to UTI, electrolyte abnormality, dehydration, ACS. Once workup is obtained and reviewed he will be reevaluated. Patient will be given a liter of IV fluids as he does have a history of heart failure. Patient CBC reviewed showed no evidence leukocytosis white blood count normal at 10.3, hemoglobin 12.4, patient does have macrocytic anemia with MCV of 109.9. Patient INR was 2.1 with a PT of 23.7. Patient sodium is 137, potassium normal at 4.4, creatinine was at his baseline at 1.32 does have underlying chronic kidney disease. Patient's AST and ALT are 39 and 19 respectively. Patient's troponin was 59 and 53 respectively. Patient's EKG reviewed showed atrial fibrillation with a rate of 81 beats per minutes. Patient's urinalysis reviewed showed 5 leukocyte esterase greater than 100 white cells 2+ bacteria this was sent for culture. Patient was ordered a gram of Rocephin at 1218. Patient's CT head and brain without contrast showed no acute findings chronic changes noted. Patient CT cervical spine reviewed showed degenerative changes cervical spine no acute fracture listhesis. There is sclerosis of C3 C5 vertebrae metastatic deposit should be ruled out. Patient's chest x-ray reviewed by myself by radiology showed a small left pleural effusion with basilar infiltration and/or atelectasis. At this point in time we will discuss case with hospitalist for generalized weakness, UTI. Patient will be given another liter of IV fluids. Discussed case with hospitalist Dr. Luciano who accept the patient for admission. Notified patient and family members at bedside all question concerns answered. They were agreeable with this plan Lab Data Labs: Laboratory Results - last 24 hr 02/09/25 02/09/25 02/09/25 11:35 11:56 13:51 WBC 10.3 RBC 3.43 L Hgb 12.4 L Hct 37.7 L MCV 109.9 H MCH 36.2 H MCHC 32.9 RDW Std Deviation 65.1 H RDW Coeff of Yanet 16.0 H Plt Count 115 L MPV 10.7 Immature Gran % (Auto) 0.400 Neut % (Auto) 80.1 H Lymph % (Auto) 8.9 L [place] % (Auto) 10.2 H Eos % (Auto) 0.2 Baso % (Auto) 0.2 Absolute Neuts (auto) 8.2 H Absolute Lymphs (auto) 0.92 Nucleated RBC % 0 Anisocytosis RARE PT 23.7 H INR 2.1 APTT 37.3 H Sodium 137 Potassium 4.4 Chloride 102 Carbon Dioxide 26.6 Anion Gap 8 BUN 41 H Creatinine 1.32 H Est GFR (MDRD) Non-Af 52 L BUN/Creatinine Ratio 31.1 H Glucose 143 H Lactic Acid 2.0 Calcium 8.8 Total Bilirubin 1.18 AST 39 H ALT 19 Alkaline Phosphatase 176 H Troponin T High Sens 59 H* D Troponin T Hi Sens 2 Hr 53 H Total Protein 5.6 L Albumin 2.6 L Globulin 3.0 Albumin/Globulin Ratio 0.9 Urine Color Yellow Urine Clarity Cloudy Urine pH 6.0 Ur Specific [place] 1.020 Urine Protein 100 H Urine Glucose (UA) Normal Urine Ketones Negative Urine Occult Blood 250 H Urine Nitrite Negative Urine Bilirubin Negative Urine Urobilinogen Normal Ur Leukocyte Esterase 500 H Urine RBC 0 SEEN Urine WBC >100 SEEN Ur Squamous Epith Cells 0 SEEN Urine Bacteria 2+ Urine Mucus 0 SEEN Radiography Diagnostic Testing: Clinical Impression(s) from Imaging Studies Chest X-Ray 02/09/25 11:29 IMPRESSION: Small left pleural effusion with left basilar infiltration and/or atelectasis. Reading Location: [id number] Brain CT 02/09/25 12:19 IMPRESSION: CHRONIC CHANGES. NO ACUTE FINDINGS. Stable examination. Reading Location: [id number] Cervical Spine CT 02/09/25 12:19 IMPRESSION: DEGENERATIVE CHANGES OF THE CERVICAL SPINE. NO EVIDENCE OF SIGNIFICANT OSSEOUS CENTRAL CANAL OR NEURAL FORAMINAL STENOSIS. Sclerosis of the C3 and C5 vertebrae. Metastatic deposit should be ruled out. Reading Location: [id number] Discharge Plan Triage Chief Complaint: Complaint ED Provider: Mike Gonzalez Dx/Rx/DC Orders Clinical Impression: Generalized weakness, Urinary tract infection, Fall, Dehydration Prescriptions: No Action pravastatin 20 mg tablet 20 mg PO DAILY allopurinol 300 mg tablet 300 mg PO DAILY nitroglycerin 0.4 mg tablet, sublingual 0.4 mg SUBLINGUAL Q5-15M PRN (Reason: chest pain) niacin [Niaspan Extended-Release] 500 mg tablet extended release 24 hr 500 mg PO QHS carvedilol [Coreg] 3.125 mg tablet 3.125 mg PO BID amoxicillin 500 mg tablet 2,000 mg PO DAILY PRN (Reason: DENTIST) Patient Comments: 30-60 minutes prior to dental procedure/ONLY WHEN HE GOES TO DENTIST. Lumigan 0.01 % drops 1 drp OPHTHALMIC QHS Rx Instructions: 1 DROP IN BOTH EYES Centrum Silver Men 300-600-300 mcg tablet 1 tab PO DAILY Simbrinza 1-0.2 % drops,suspension 1 drp OPHTHALMIC BID triamcinolone acetonide 0.025 % cream 1 applic topical BID Patient Comments: APPLY TO RIGHT EAR furosemide [Lasix] 40 mg tablet 40 mg PO BID Rx Instructions: one tablet in the AM and one tablet 4-6 hours later lutein 10 mg tablet 10 mg PO DAILY Rx Instructions: give with meal/snack Eliquis 2.5 mg tablet 2.5 mg PO BID Qty: 60 0RF potassium chloride 20 mEq Tablet,Er Particles/Crystals 20 meq PO BIDCM 30 Days Qty: 60 0RF Primary Care Provider: Butch Munoz Referrals: Butch Munoz MD [Primary Care Provider] - Print Language: Bermudian Disposition Disposition: Acute Care Hospital [facility]
[2025-02-09] MEDS: 0.9% Normal Saline (1000mL) 1,000 ML 999 ML IV ×2 (11:45→15:10)
[2025-02-09 11:56] LABS: International Normalized Ratio 2.1; Prothrombin Time (Protime)PT. 23.7 SECONDS (11.7-14.9)
[2025-02-09 11:57] LABS: Absolute Lymphocyte Count 0.92 X10^3/uL (0.83-4.51); Absolute Neutrophil Count 8.2 X10^3/uL (2.0-7.7); Basophil# 0.02 X10^3/uL; Basophil% 0.2 % (0-1); Eosinophil# 0.02 X10^3/uL; Eosinophils% 0.2 % (0-5); Hematocrit 37.7 % (40-54); Hemoglobin 12.4 g/dL (13.0-16.5); Lymphocyte # 0.92 X10^3/ul (0.83-4.51); Lymphocyte % 8.9 % (19-41); Mean Corp Hgb Conc 32.9 g/dL (32-36); Mean Corpuscular Hgb 36.2 pg (27.0-32.0); Mean Corpuscular Volume 109.9 fL (80-94); Mean Platelet Vol. 10.7 fl (6.2-12.0); Monocyte# 1.05 X10^3/uL; Monocyte% 10.2 % (0-10); NRBC Flagged by Analyzer 0 % (0-5); Neutrophil # 8.23 X10^3/uL (2.7-7.7); Neutrophil % 80.1 % (47-70); POSITIVE MORPHOLOGY YES; Partial Thromboplast Time 37.3 Seconds (24.1-36.2); Platelet Count 115 K/mm3 (150-450); RBC Distribution Width SD 65.1 fl (35.1-43.9); Red Blood Count 3.43 M/mm3 (4.6-6.2); White Blood Count 10.3 K/mm3 (4.4-11.0)
[2025-02-09 12:02] LABS: Mucous, Urine 0 SEEN /hpf (<or=2+); Red Blood Cells-Urine 0 SEEN /hpf (0-5); Squamous Epithelial Cells - UA 0 SEEN /hpf (0-5)
[2025-02-09 12:04] LABS: Differential Indicated SCAN CRITERIA MET
[2025-02-09 12:11] LABS: Color, Urine Yellow (Yellow); Glucose, Dipstick Normal (Normal); Ketone-Dipstick Negative (Negative); Leukocyte Esterase-Dipstick 500 /ul (Negative); Nitrite-Dipstick Negative (Negative); Occult Blood-Urine 250 /ul (Negative); Protein-Dipstick 100 mg/dl (Negative); Urine Bilirubin Dipstick Negative (Negative); Urine Clarity Cloudy (Clear); Urine Urobilinogen Normal (Normal)
[2025-02-09 12:12] LABS: Bacteria 2+ /hpf (None Seen); White Blood Cells >100 SEEN /hpf (0-5)
--- NOTE | 2025-02-09 12:19 | CT_ITS ---
PROCEDURE: BRAIN/HEAD WITHOUT CONTRAST 02/09/2025 REASON FOR EXAM: FALL TECHNIQUE: BRAIN/HEAD WITHOUT CONTRAST Coronal and Sagittal reconstruction series were provided. One or more dose reduction techniques were used (e.g., Automated exposure control, adjustment of the mA and/or kV according to patient size, use of iterative reconstruction technique. RADIATION DOSE SUMMARY: CTDlvol: 44.99 mGy DLP: 812.98 mGycm COMPARISON: Prior study dated January 06, 2025. FINDINGS: Brain: Low density in the periventricular white matter suggests mild chronic small vessel ischemic changes. CSF Spaces: Mild generalized cerebral atrophy Sinuses/Mastoids: Stable opacification of the left maxillary sinus with hyperdense contents suggestive of chronic left maxillary sinusitis. Bones: No fracture. CT/Brain/Head without Contrast IMPRESSION: CHRONIC CHANGES. NO ACUTE FINDINGS. Stable examination. Reading Location: [id number]
--- NOTE | 2025-02-09 12:19 | CT_ITS ---
PROCEDURE: SPINE CERVICAL WITHOUT CONTRAS 02/09/2025 REASON FOR EXAM: FALL TECHNIQUE: SPINE CERVICAL WITHOUT CONTRAS Coronal and Sagittal reconstruction series were provided. CONTRAST: None One or more dose reduction techniques were used (e.g., Automated exposure control, adjustment of the mA and/or kV according to patient size, use of iterative reconstruction technique. RADIATION DOSE SUMMARY: CTDlvol: 22.83 mGy DLP: 440.46 mGycm COMPARISON: None FINDINGS: Alignment: Straightening of the normal cervical lordosis. Vertebrae: Sclerotic foci seen in the body of the C3 and C5 vertebrae. Metastatic deposit should be ruled out. Soft Tissues: Calcification of the carotid bifurcations. Other: C1-2: Degenerative changes of the atlantoaxial joint. C2-3: Mild degree of disc space narrowing. Uncovertebral arthrosis. No significant stenosis seen. C3-4: Sclerosis of the C3 vertebrae as described. Marked degree of disc space narrowing and spondylosis. No significant stenosis seen. C4-5: Marked degree of disc space narrowing. Mild spondylosis. Uncovertebral arthrosis. No significant stenosis seen. C5-6: Sclerotic focus within the body of the C5 vertebrae. Marked degree of disc space narrowing. Uncovertebral arthrosis and bilateral neural foraminal stenosis. Mild degree of bilateral neural foraminal stenosis. C6-7: Marked degree of disc space narrowing. Uncovertebral arthrosis. No significant stenosis seen. C7-T1: Marked degree of disc space narrowing and spondylosis. CT/Spine Cervical without Contras IMPRESSION: DEGENERATIVE CHANGES OF THE CERVICAL SPINE. NO EVIDENCE OF SIGNIFICANT OSSEOUS CENTRAL CANAL OR NEURAL FORAMINAL STENOSIS. Sclerosis of the C3 and C5 vertebrae. Metastatic deposit should be ruled out. Reading Location: [id number]
[2025-02-09 12:28] LABS: ALB/GLOB Ratio 0.9 RATIO (0.9-2.4); AST(SGOT) 39 U/L (<=37); Alanine Aminotransfer ALT/SGPT 19 U/L (<=46); Albumin, Serum 2.6 g/dL (3.4-4.8); Alkaline Phosphatase 176 U/L (40-129); Anion Gap 8 (5-15); BUN 41 mg/dL (4-19); BUN/Creat Ratio 31.1 RATIO (10-20); Calcium,Total 8.8 mg/dL (7.6-11.0); Carbon Dioxide 26.6 mmol/L (21.0-32.0); Chloride 102 mmol/L (98-108); Creatinine, Serum 1.32 mg/dL (0.70-1.20); EST Glomerular Filtration Rate 52 (>60); Glucose 143 mg/dL (70-99); Potassium 4.4 mmol/L (3.3-5.1); Protein, Total 5.6 g/dL (5.9-8.4); Sodium Level 137 mmol/L (133-145); Total Bilirubin 1.18 mg/dL (0.00-1.30); Troponin T High Sensitivity 59 ng/L (<=22)
[2025-02-09] MEDS: Ceftriaxone 1 GM/50 ML BAG IV (12:47)
[2025-02-09 13:08] LABS: Anisocytosis RARE
[2025-02-09 14:36] LABS: Troponin T High Sens 2 HR 53 ng/L (<=22)
--- NOTE | 2025-02-09 15:37 | HP.PCM.HOS_ITS ---
HPI - General General Date of Admission: 02/09/25 Date of Service: 02/09/25 Chief Complaint: Generalized weakness HPI Narrative VALDO DUTTA, is a 89-year-old male history of A-fib on Eliquis, hypertension, CKD, gout, CAD, heart failure who presented [facility] ED 02/09/2025 with generalized weakness to the point he was unable to get out of bed. Yesterday around 4 PM he fell because he was so weak but did not hit his head or lose consciousness. Also complaining of painful urination. Additionally he does not have central air and has been very hot. In the ED patient afebrile, heart rate 75 with a blood pressure 84/44, respiratory rate 21 with a pulse ox 99% on room air. CBC with white blood cell count of 10.3, hemoglobin 12.4, BMP with BUN of 41 and creatinine of 1.32 which is similar to previous. UA suspicious for infection. Troponin of 59. Lactic acid within normal limits. CT of the brain with no acute process, cervical CT with sclerosis of C3 and C5 vertebrae with recommendation to rule out metastatic deposit. Chest x-ray with small left pleural effusion with infiltrate versus atelectasis. Given patient's urinary symptoms with UA suspicious for UTI with suspected patient's generalized weakness was secondary to underlying urinary tract infection. Patient given IV fluids and hospitalist contacted for admission. Patient evaluated with family members at bedside. Patient has been somewhat generally weak for the past 2 days, on Thursday he had a temperature of 102 and had chills and sweats and has not been eating very well, fell yesterday due to weakness and today due to worsening weakness he came to the ED, daughter also feels like he cannot really hear them as well either. Patient denies any chest pain or shortness of breath, no abdominal pain, does have burning on urination but other than that, generalized weakness, fever 2 days ago he denies any other new or acute complaints [facility] Medical History (Updated 02/09/25 @ 15:[address] Ariela Luciano MD) Atherosclerosis of coronary artery of [place] heart without angina pectoris Coronary artery disease DVT (deep venous thrombosis) Gout Hyperlipidemia Hypertension Kidney disease Myocardial infarct Non-smoker Old inferior wall myocardial infarction On home oxygen therapy Home Medications ?Medication ?Instructions ?Recorded ?Last Taken ?Type allopurinol 300 mg tablet 300 mg PO DAILY 09/13/17 History amoxicillin 500 mg tablet 2,000 mg PO DAILY PRN DENTIS T 09/13/17 Unknown History bimatoprost 0.01 % eye drops 1 drp ophthalmic (eye) QH S 09/13/17 12/07/24 History (Clau) carvedilol 3.125 mg tablet (Coreg) 3.125 mg PO BID 02/09/25 History mfjphubi-ce-fpuxa 300 mcg-K 60 1 tab PO DAILY 09/13/17 02/09/25 History mcg-lycop 600 mcg-lutein 300 mcg tablet (Centrum Silver Men) niacin 500 mg tablet,extended 500 mg PO QHS 09/13/17 0 12/06/24 History release 24 hr (Niaspan) nitroglycerin 0.4 mg sublingual 0.4 mg sublingual Q5-1 5M PRN chest 09/13/17 Unknown History tablet pain pravastatin 20 mg tablet 20 mg PO DAILY 09/14/1701/16 History brinzolamide 1 %-brimonidine 0.2 % 1 drp ophthalmic (e ye) BID 02/10/19 Unknown History eye drops,suspension (Simbrinza) apixaban 2.5 mg tablet (Eliquis) 2.5 mg PO BID #60 tab s 12/07/24 02/09/25 Rx lutein 10 mg tablet 10 mg PO DAILY 12/07/2401/16 History potassium chloride 20 mEq 20 meq PO BIDCM 30 days #60 tabs 01/09/25 02/09/25 Rx tablet,extended release(part/cryst) furosemide 40 mg tablet (Lasix) 40 mg PO BID 01/27/25 02/09/25 History triamcinolone acetonide 0.025 % 1 applic topical BID 0 01/27/25 Unknown History topical cream Allergy/AdvReac Type Severity Reaction Status Date / Time SHARON Inhibitors AdvReac Hypotensive Verified 02/09/25 15:09 Family History Mother , AGe 71 Congestive heart failure Sister , Age 66 CAD (coronary artery disease) Breast cancer S/P CABG (coronary artery bypass graft) Surgical History H/O bilateral hip replacements H/O bilateral inguinal hernia repair H/O right coronary artery stent placement (06/13/10) History of coronary artery stent placement Social History household members: spouse housing: house current occupational status: retired Smoking Status: Never smoker ROS ROS Narrative General: Fever 2 days ago HENT: Denies headache, denies stuffy nose, denies sore throat EYES: Denies changes in vision Resp: Denies cough, denies any new shortness of breath Cardiac: Denies chest pain GI: Denies abdominal pain, denies changes in bowel, denies nausea/vomiting, has had poor p.o. intake : Denies changes in urination Extremity: Burning on urination MSK: Generalized weakness Neuro: Denies any numbness/tingling Heme: Denies any new bleeding Skin: Denies rashes Psychiatric: No complaints voiced Vital Signs Vital Signs Vital Signs: 02/09/25 11:21 02/09/25 11:46 02/09/25 11:51 Temperature 99 F 99 F Temperature Source Temporal Oral Pulse Rate 75 79 Respiratory Rate 21 H 23 H Blood Pressure 84/44 L 73/52 L Blood Pressure Mean 57 59 Pulse Ox 99 94 94 Oxygen Delivery Method Room Air Room Air Room Air Oxygen Flow Rate (L/min) 02/09/25 12:15 02/09/25 12:25 02/09/25 14:00 Temperature 99.1 F 98.9 F Temperature Source Oral Oral Pulse Rate 75 72 67 Respiratory Rate 19 H 16 13 Blood Pressure 82/52 L 82/52 L 85/60 L Blood Pressure Mean 62 62 68 Pulse Ox 94 Oxygen Delivery Method Nasal Cannula Oxygen Flow Rate (L/min) 2 02/09/25 15:00 Temperature 98.9 F Temperature Source Oral Pulse Rate 70 Respiratory Rate 18 Blood Pressure 83/51 L Blood Pressure Mean 61 Pulse Ox Oxygen Delivery Method Oxygen Flow Rate (L/min) Physical Exam Narrative General: Alert, answering questions appropriately, no apparent distress HEENT: Atraumatic, normocephalic, does have sunken appearing eyes which is not new Eyes: Anicteric, normal conjunctiva, extraocular movements grossly intact Neck: Supple Respiratory: Overall clear to auscultation bilaterally, normal respiratory effort Cardiovascular: A-fib with regular rate GI: Soft, nontender, nondistended Extremities: No edema Musculoskeletal: Moving all extremities Neuro: No overt focal neurological deficits Skin: No rashes appreciated Psych: Cooperative Results Lab / Micro Data 02/09/25 11:35 02/09/25 11:35 Labs: Laboratory Results - last 24 hr 02/09/25 11:35: WBC 10.3, RBC 3.43 L, Hgb 12.4 L, Hct 37.7 L, MCV 109.9 H, MCH 36.2 H, MCHC 32.9, RDW Std Deviation 65.1 H, RDW Coeff of Yanet 16.0 H, Plt Count 115 L, MPV 10.7, Immature Gran % (Auto) 0.400, Neut % (Auto) 80.1 H, Lymph % (Auto) 8.9 L, [place] % (Auto) 10.2 H, Eos % (Auto) 0.2, Baso % (Auto) 0.2, A bsolute Neuts (auto) 8.2 H, Absolute Lymphs (auto) 0.92, Nucleated RBC % 0, Anisocytosis RARE, PT 23.7 H, INR 2.1, APTT 37.3 H, Sodium 137, Potassium 4.4, Chloride 102, Carbon Dioxide 26.6, Anion Gap 8, BUN 41 H, Creatinine 1.32 H, Est GFR (MDRD) Non-Af 52 L, BUN/Creatinine Ratio 31.1 H, Glucose 143 H, Lactic Acid 2.0, Calcium 8.8, Total Bilirubin 1.18, AST 39 H, ALT 19, Alkaline Phosphatase 176 H, Troponin T High Sens 59 H* D, Total Protein 5.6 L, Albumin 2.6 L, Globulin 3.0, Albumin/Globulin Ratio 0.9 02/09/25 11:56: Urine Color Yellow, Urine Clarity Cloudy, Urine pH 6.0, Ur Specific [place] 1.020, Urine Protein 100 H, Urine Glucose (UA) Normal, Urine Ketones Negative, Urine Occult Blood 250 H, Urine Nitrite Negative, Urine Bilirubin Negative, Urine Urobilinogen Normal, Ur Leukocyte Esterase 500 H, Urine RBC 0 SEEN, Urine WBC >100 SEEN, Ur Squamous Epith Cells 0 SEEN, Urine Bacteria 2+, Urine Mucus 0 SEEN 02/09/25 13:51: Troponin T Hi Sens 2 Hr 53 H Imaging Radiology Impression Chest X-Ray 02/09/25 11:29 IMPRESSION: Small left pleural effusion with left basilar infiltration and/or atelectasis. Reading Location: [id number] Brain CT 02/09/25 12:19 IMPRESSION: CHRONIC CHANGES. NO ACUTE FINDINGS. Stable examination. Reading Location: [id number] Cervical Spine CT 02/09/25 12:19 IMPRESSION: DEGENERATIVE CHANGES OF THE CERVICAL SPINE. NO EVIDENCE OF SIGNIFICANT OSSEOUS CENTRAL CANAL OR NEURAL FORAMINAL STENOSIS. Sclerosis of the C3 and C5 vertebrae. Metastatic deposit should be ruled out. Reading Location: [id number] Assessment & Plan Assessment/Plan (1) UTI (urinary tract infection): PLAN: Plan # Generalized weakness suspect secondary to UTI -UA suspicious for UTI -Urine and blood cultures ordered and pending -Hydrating cautiously with IV fluids given heart failure history # Elevated troponin -No chest pain -Suspect this is secondary to underlying infection and hypotension -Initial troponin 59 with repeat of 53 - Patient to be monitored on telemetry # Hypotension -Suspect due to combination of infection and dehydration given lack of central air with significant heat -Does not meet other criteria though would be consistent with sepsis at this time -Patient receiving second bolus as his blood pressure remained low and on my evaluation blood pressure was 94/62, hence improving -Hold home antihypertensives - Will monitor patient closely in the ICU in the event patient is early sepsis and decompensates # C3 and C5 sclerosis -CT recommended MRI to rule out metastatic deposits -Suspect patient's weakness and falls are due to his UTI and low blood pressure in the cervical spine findings are incidental - Given patient's present clinical condition will defer MRI until patient clinically stable - Due to time constraints unable to discuss this finding and further management with family in the ED, this will ultimately need addressed moving forward # History of heart failure with unclear subtype -Echo last month with EF of 40% with mild to moderate global hypokinesis of the left ventricle, PASP of 46, and moderate mitral valve insufficiency -Daily weights, I's and O's -Holding home carvedilol and Lasix due to presenting problem and blood pressure # History of atrial fibrillation -Continue Eliquis -Holding Coreg due to patient's hypotension #Gout -Continue home allopurinol # History of CAD -With stent placement to RCA in 2009 -Patient on Eliquis and aspirin, will continue -Holding beta-sung due to hypotension # CKD stage III a -Appears to be at baseline -Avoid nephrotoxic agents -Daily BMPs #DVT ppx: Chronically on Eliquis Ariela Luciano MD CODE status: Discussed CODE status at length including difference between FULL code, DNR-CCA, and DNR-CC status. Following discussions about the differences in these status, requested DNR/DNI. Advanced Care Planning Face to Face Time: 12 minutes. Charges/Coding Multi Select Codes Visit Charges Visit Charges: 67657 Init Hosp Hospitalists' Procedures Procedures: 35212 Advncd Care Plan 30 Min
[2025-02-09 15:43] LABS: Reflex Lactate? Y
[2025-02-09 16:36] LABS: Lactic Acid 1.6 mmol/L (0.0-2.0)
[2025-02-09 16:39] LABS: Troponin T High Sens 4 HR 14 ng/L (<=22)
--- NOTE | 2025-02-09 17:50 | CASEMGMT ---
Care Management Face to Face for initial transition planning/care coordination assessment in the ED.? This medical writer introduced self and role at [facility]. Patient alert and oriented. Patient deferred to daughter to answer questions in assessment.? Care providers, pharmacy, and demographics verified. Admitting Diagnosis: ?UTI Other diagnosis history: DVT, hypertension, hyperlipidemia PCP: Alexander Specialists: [facility] cardi[facility] Preferred Pharmacy: [facility] Insurance: ?A[employer] Prescription Benefit: yes Living Will/HPOA: HPOA on file LNOK: ? Living Arrangements: ?patient lives with in a 2 story farmhouse, daughter states parents are able to live on the first floor.? Daughter reports that family assists with ADLs as needed.? Transportation: ?Daughter DME: ?walker, cane, bedside commode, shower chair, blood pressure cuff HHC: ?none SNF/Rehab: none Community Resources: ?none Behavioral Health History: none Patient goals: Discharge plans uncertain at this time. Disposition Plan: admission to acute; RN CM/SW to follow for discharge planning needs that may arise. Anais Bob, RESP THERAPIST, SUPERVISOR SCOURING PADS
[2025-02-09] MEDS: Niacin SA 500 MG Tablet PO (21:54)
[2025-02-09] MEDS: APIXABAN 2.5 MG TABLET (WCH) PO (21:54)
[2025-02-09] MEDS: Latanoprost 0.005% 1 Bottle 1 DRP OPHTHALMIC (21:54)
[2025-02-10] VITALS (20 sets, daily range): BP systolic 88–129; BP diastolic 49–88; PULSE 75–102; RESP 15–24; TEMP 36.6–37.1; O2SAT 94–99; BMI 21.8
[2025-02-10] MEDS: Ceftriaxone 1 GM/50 ML BAG IV (09:18)
[2025-02-10] MEDS: Senna/Docusate Sodium 1 Tablet 2 TABLET PO ×2 (09:19→21:37)
[2025-02-10] MEDS: APIXABAN 2.5 MG TABLET (WCH) PO ×2 (09:19→21:37)
[2025-02-10] MEDS: Pravastatin 20 MG Tablet PO (09:19)
[2025-02-10] MEDS: Allopurinol 300 MG Tablet PO (09:19)
[2025-02-10] MEDS: Ensure Plus High Protein 120 ML LIQUID PO ×3 (09:23→17:05)
--- NOTE | 2025-02-10 09:24 | CASEMGMT ---
During ICU rounds, pt states that he plans to DC home with his once medically ready. Pt states that his daughter also provides great support for the pt at home. At this time, the pt denies the need for services such as HH or OP therapy. However, PT is ordered and pending. Pt denies further questions or concerns at this time.
[2025-02-10 10:12] LABS: Absolute Lymphocyte Count 0.96 X10^3/uL (0.83-4.51); Absolute Neutrophil Count 5.4 X10^3/uL (2.0-7.7); Basophil# 0.01 X10^3/uL; Basophil% 0.1 % (0-1); Eosinophil# 0.19 X10^3/uL; Eosinophils% 2.6 % (0-5); Hemoglobin 12.8 g/dL (13.0-16.5); Lymphocyte # 0.96 X10^3/ul (0.83-4.51); Lymphocyte % 13.2 % (19-41); Mean Corp Hgb Conc 32.8 g/dL (32-36); Mean Corpuscular Hgb 36.2 pg (27.0-32.0); Mean Corpuscular Volume 110.2 fL (80-94); Mean Platelet Vol. 11.3 fl (6.2-12.0); Monocyte# 0.64 X10^3/uL; Monocyte% 8.8 % (0-10); NRBC Flagged by Analyzer 0 % (0-5); Neutrophil # 5.43 X10^3/uL (2.7-7.7); Neutrophil % 74.7 % (47-70); Platelet Count 108 K/mm3 (150-450); RBC Distribution Width CV 15.9 % (11.6-14.6); Red Blood Count 3.54 M/mm3 (4.6-6.2); White Blood Count 7.3 K/mm3 (4.4-11.0)
[2025-02-10 10:38] LABS: Anion Gap 10 (5-15); BUN 42 mg/dL (4-19); BUN/Creat Ratio 33.1 RATIO (10-20); Calcium,Total 8.6 mg/dL (7.6-11.0); Carbon Dioxide 24.9 mmol/L (21.0-32.0); Chloride 102 mmol/L (98-108); Creatinine, Serum 1.26 mg/dL (0.70-1.20); EST Glomerular Filtration Rate 55 (>60); Estimated Creatinine Clearance 41.79 ml/min (50-250); Glucose 142 mg/dL (70-99); Potassium 4.1 mmol/L (3.3-5.1); Sodium Level 137 mmol/L (133-145)
--- NOTE | 2025-02-10 10:41 | CASEMGMT ---
Discharge Planning A list of?SNF providers including quality and resource use data and consistent with the patient's preferred geographic region, medical needs, and insurance network was created in CarePort Guide.? This list was provided to the SW. Francesca Gonzalez Discharge Planning Asst.
--- NOTE | 2025-02-10 15:10 | CHAPLAIN ---
Type of Pastoral Visit _x__ Initial Visit ___ Follow-up Visit ___ On-call Visit ___ General Patient Visit ___ Spiritual Assessment ___ Family Conference ___ Bereavement ___ Rapid Response ___ Code Blue ___ Other (describe below) Pastoral Care Referral From _x__ Patient ___ Family ___ Nurse ___ Physician ___ Licensing Services Clerk ___ Novelty Chain Maker ___ Other (describe below) Sacrament/Intervention _x__ Active listening ___ Anointing ___ Rastafarian ___ Bereavement ___ Communion ___ Michela exploration ___ _x__ Life review _x__ Prayer ___ Reconciliation ___ Sacrament of Sick ___ Supportive presence ___ Wedding ___ Other (describe below) Pastoral Comments patient and spouse are in the room; both are welcoming but also hard of hearing; both give some life review and patient reports that he is feeling better although his health has been declining recently; patient has a daughter and son-in-law but that is all of family that can be supportive; pt has been a life long member of a local [employer]; pt welcomes spiritual care and prayer;
[2025-02-10] MEDS: Menthol/Lanolin/Calamine/Znox 113 GM Tube 1 APPLIC TOPICAL (15:31)
--- NOTE | 2025-02-10 16:07 | PN.HOSP_ITS ---
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 Objective Data Objective Data Vital Signs: Vital Signs Temp Pulse Resp BP Pulse Ox O2 Del Method O2 Flow Rate 98.8 F 89 20 H 99/62 95 Room Air 2 02/10/25 06:00 02/10/25 11:00 02/10/25 11:00 02/10/25 11:00 02/10/25 11:00 02/10/25 11:00 02/09/25 14:00 Oxygen Flow Rate (L/min) 2 Oxygen Delivery Method Room Air Weight: 72.9 kg Body Mass Index (BMI) 21.8 Intake & Output: Intake and Output for Last 24 Hours 02/08/25 02/09/25 02/10/25 23:59 23:59 23:59 Intake Total 2550 / 2550 1105 / 1105 Output Total 225 / 225 300 / 300 Balance 2325 / 2325 805 / 805 Medical Nutrition Assessment Dietitian: Malnutrition Criteria Met Start: 02/10/25 09:54 Freq: Status: Active Protocol: Document 02/10/25 09:54 KRISTEN (Rec: 02/10/25 09:54 KRISTEN [id number]) Nutrition Malnutrition Evidence of Yes Malnutrition Exists Malnutrition (severe Acute Illness/Injury ): Malnutrition ( Severe pro/sanam unspecified) Evidenced By Suboptimal Energy Intake (Severe),Weight Loss (Severe), Physical Changes (Moderate) Clinical Problem Chronic Disease or Condition Related Malnutrition Etiology related to inadequate energy intake Signs/Symptoms as evidenced by 15.5% wt loss and po intake meeting < 75% of est nutritional needs; obvious fat/muscle loss throughout body Status Active Problem Recommendation Dietitian Will liberalize diet to Regular No Added Salt d/t signs Recommendations/ and symptoms of malnutrition Changes Will order ensure plus high protein 4x/day w/ medpass Will order fortified foods tid w/ meals for increased nutrition if consumed. Lab / Micro Data 02/10/25 09:00 02/10/25 09:00 Labs: Laboratory Results - last 24 hr 02/09/25 16:00: Lactic Acid 1.6, Troponin T Hi Sens 4Hr 14 02/10/25 09:00: WBC 7.3, RBC 3.54 L, Hgb 12.8 L, Hct 39.0 L, MCV 110.2 H, MCH 36.2 H, MCHC 32.8, RDW Std Deviation 65.0 H, RDW Coeff of Yanet 15.9 H, Plt Count 108 L, MPV 11.3, Immature Gran % (Auto) 0.600, Neut % (Auto) 74.7 H, Lymph % (Auto) 13.2 L, Archuleta % (Auto) 8.8, Eos % (Auto) 2.6, Baso % (Auto) 0.1, Absolute Neuts (auto) 5.4, Absolute Lymphs (auto) 0.96, Nucleated RBC % 0, Sodium 137, Potassium 4.1, Chloride 102, Carbon Dioxide 24.9, Anion Gap 10, BUN 42 H, C reatinine 1.26 H, Estim Creat Clear Calc 41.79 L, Est GFR (MDRD) Non-Af 55 L, B UN/Creatinine Ratio 33.1 H, Glucose 142 H, Calcium 8.6 Micro: Microbiology 02/09/25 11:56 Urine, Clean Catch Urine Culture - Preliminary GNR 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 02/09/25 11:56 Urine, Clean Catch Urine Culture - Preliminary GNR 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 Physical Exam Const alert, oriented x3 and no apparent distress Constitutional Narrative: Patient appears cachectic General Appearance: cooperative, well kempt and well developed Orientation / Consciousness: awake, oriented to person, oriented to place and oriented to time HEENT normocephalic, head/scalp atraumatic and moist oral mucous membranes Eyes PERRL, EOMs intact bilaterally and conjunctivae normal Neck supple, no JVD, thyroid normal and no carotid bruits General: trachea midline Resp normal respiratory effort, no retractions, no use of accessory muscles and clear to auscultation bilaterally Auscultation: Negative for rales, rhonchi or wheezes Cardio S1 normal heart sound, S2 normal heart sound, no murmurs, no rub and no gallops Cardio Narrative: Heart rate and rhythm is irregular GI normal to inspection, nondistended, normoactive bowel sounds, soft to palpation, non-tender and non-distended Extremity no clubbing, cyanosis or edema Skin no rashes or lesions noted General Skin Exam: no breakdown Neuro oriented x3, CN's II-XII intact bilaterally, moves all extremities, no focal motor deficits and no sensory deficits noted Sensorium / Orientation: awake and alert Speech: speech normal Psych affect normal Assessment & Plan Assessment/Plan (1) UTI (urinary tract infection): PLAN: Plan 1. 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
[2025-02-10] MEDS: 0.9% Normal Saline (1000mL) 1,000 ML 75 ML IV (17:05)
[2025-02-10] MEDS: Niacin SA 500 MG Tablet PO (21:37)
[2025-02-11] VITALS (8 sets, daily range): BP systolic 107–125; BP diastolic 67–83; PULSE 73–92; RESP 16–18; TEMP 36.4–37.1; O2SAT 95–100; BMI 22.4
[2025-02-11] MEDS: Senna/Docusate Sodium 1 Tablet 2 TABLET PO (08:48)
[2025-02-11] MEDS: Pravastatin 20 MG Tablet PO (08:48)
[2025-02-11] MEDS: APIXABAN 2.5 MG TABLET (WCH) PO ×2 (08:48→22:42)
[2025-02-11] MEDS: Allopurinol 300 MG Tablet PO (08:49)
[2025-02-11] MEDS: Ensure Plus High Protein 120 ML LIQUID PO (08:52)
[2025-02-11] MEDS: Ceftriaxone 1 GM/50 ML BAG IV (08:52)
[2025-02-11] MEDS: Acetaminophen 325 MG Tablet 650 MG PO (11:35)
[2025-02-11] MEDS: Menthol/Lanolin/Calamine/Znox 113 GM Tube 1 APPLIC TOPICAL ×2 (14:01→22:30)
[2025-02-11] MEDS: Niacin SA 500 MG Tablet PO (22:42)
[2025-02-12] MEDS: Menthol/Lanolin/Calamine/Znox 113 GM Tube 1 APPLIC TOPICAL ×3 (03:40→21:27)
[2025-02-12 04:20] VITALS: BP 108/81; PULSE 73; RESP 18; TEMP 36.8; O2SAT 100
[2025-02-12 04:50] VITALS: BMI 22.4
[2025-02-12] MEDS: Acetaminophen 325 MG Tablet 650 MG PO ×2 (06:09→21:36)
[2025-02-12 07:59] VITALS: BP 115/70; PULSE 68; RESP 14; TEMP 36.6; O2SAT 92
[2025-02-12] MEDS: APIXABAN 2.5 MG TABLET (WCH) PO ×2 (09:56→21:27)
[2025-02-12] MEDS: Ciprofloxacin 500 MG Tablet PO ×2 (09:56→21:27)
[2025-02-12] MEDS: Senna/Docusate Sodium 1 Tablet 2 TABLET PO (09:57)
[2025-02-12] MEDS: Pravastatin 20 MG Tablet PO (09:57)
[2025-02-12] MEDS: Allopurinol 300 MG Tablet PO (09:58)
[2025-02-12 13:33] VITALS: BP 104/79; PULSE 86; RESP 15; TEMP 36.3; O2SAT 96
--- NOTE | 2025-02-12 17:43 | PCM.PN.HOSP ---
Reason for Visit Reason for Visit: Diagnoses Urinary tract infection, site not specified (02/09/25) Subjective Subjective Patient was seen and examined today, his urine culture grew out E. coli which was not sensitive to Rocephin, I changed the patient to Cipro. Objective Data Objective Data Vital Signs: Vital Signs Temp Pulse Resp BP Pulse Ox O2 Del Method O2 Flow Rate 97.4 F L 86 15 104/79 96 Room Air 2 02/12/25 13:33 02/12/25 13:33 02/12/25 13:33 02/12/25 13:33 02/12/25 13:33 02/12/25 13:33 02/09/25 14:00 Oxygen Flow Rate (L/min) 2 Oxygen Delivery Method Room Air Weight: 75 kg Body Mass Index (BMI) 22.4 Intake & Output: Intake and Output for Last 24 Hours 02/10/25 02/11/25 02/12/25 23:59 23:59 23:59 Intake Total 1635 / 1635 1790 / 1790 300 / 300 Output Total 825 / 825 600 / 800 775 / 775 Balance 810 / 810 1190 / 990 -475 / -475 Medical Nutrition Assessment Dietitian: Malnutrition Criteria Met Start: 02/10/25 09:54 Freq: Status: Active Protocol: Document 02/10/25 09:54 KRISTEN (Rec: 02/10/25 09:54 KRISTEN [id number]) Nutrition Malnutrition Evidence of Yes Malnutrition Exists Malnutrition (severe Acute Illness/Injury ): Malnutrition ( Severe pro/sanam unspecified) Evidenced By Suboptimal Energy Intake (Severe),Weight Loss (Severe), Physical Changes (Moderate) Clinical Problem Chronic Disease or Condition Related Malnutrition Etiology related to inadequate energy intake Signs/Symptoms as evidenced by 15.5% wt loss and po intake meeting < 75% of est nutritional needs; obvious fat/muscle loss throughout body Status Active Problem Recommendation Dietitian Will liberalize diet to Regular No Added Salt d/t signs Recommendations/ and symptoms of malnutrition Changes Will order ensure plus high protein 4x/day w/ medpass Will order fortified foods tid w/ meals for increased nutrition if consumed. Lab / Micro Data 02/10/25 09:00 02/10/25 09:00 Micro: Microbiology 02/09/25 12:47 Blood Culture (Wb) - Left Forearm Blood Culture - Preliminary No growth in 48 hours. 02/09/25 11:35 Blood Culture (Wb) - Left Forearm Blood Culture - Preliminary No growth in 48 hours. 02/09/25 11:56 Urine, Clean Catch Urine Culture - Final Escherichia coli 02/09/25 11:56 Urine, Clean Catch Urine Culture - Final Escherichia coli Physical Exam Narrative alert, oriented x3 and no apparent distress Constitutional Narrative: Patient appears cachectic General Appearance: cooperative, well kempt and well developed Orientation / Consciousness: awake, oriented to person, oriented to place and oriented to time HEENT normocephalic, head/scalp atraumatic and moist oral mucous membranes Eyes PERRL, EOMs intact bilaterally and conjunctivae normal Neck supple, no JVD, thyroid normal and no carotid bruits General: trachea midline Resp normal respiratory effort, no retractions, no use of accessory muscles and clear to auscultation bilaterally Auscultation: Negative for rales, rhonchi or wheezes Cardio S1 normal heart sound, S2 normal heart sound, no murmurs, no rub and no gallops Cardio Narrative: Heart rate and rhythm is irregular GI normal to inspection, nondistended, normoactive bowel sounds, soft to palpation, non-tender and non-distended Extremity no clubbing, cyanosis or edema Skin no rashes or lesions noted General Skin Exam: no breakdown Neuro oriented x3, CN's II-XII intact bilaterally, moves all extremities, no focal motor deficits and no sensory deficits noted Sensorium / Orientation: awake and alert Speech: speech normal Psych affect normal Assessment & Plan Assessment/Plan (1) UTI (urinary tract infection): PLAN: Plan 1. Acute cystitis-again urine culture grew out E. coli-sensitive to Cipro, patient is now on Cipro #2 chronic kidney disease stage IIIa-BMP will be monitored as needed #3 hypotension-possibly related to volume depletion, blood pressure will be monitored #4 permanent atrial fibrillation-patient is on a beta-sung and Eliquis #5 Acute severe protein caloric malnutrition-as evidenced by a 15.5% weight loss and p.o. intake meeting less than 75% of estimated nutritional needs, obvious fat/muscle loss throughout the body-diet has been liberalized to regular no added salt, Ensure Plus high-protein 4 times a day with med Pass was ordered, nutritional services is participating in his care Total clinical time spent by myself addressing the patient's medical issues, reviewing all of his data, and collaborating with patient's care team: 35 minutes Charges/Coding Visit Charges Inpatient E&M: 89670 Subs Hosp L2
[2025-02-12 18:08] VITALS: BP 106/70; PULSE 73; RESP 15; TEMP 36.8; O2SAT 95
[2025-02-12 21:25] VITALS: BP 104/69; PULSE 78; RESP 18; TEMP 36.1; O2SAT 99
[2025-02-12] MEDS: Niacin SA 500 MG Tablet PO (21:27)
[2025-02-13 03:41] VITALS: BP 104/80; PULSE 88; RESP 18; TEMP 36.3; O2SAT 100
[2025-02-13] MEDS: Acetaminophen 325 MG Tablet 650 MG PO (03:43)
[2025-02-13] MEDS: Menthol/Lanolin/Calamine/Znox 113 GM Tube 1 APPLIC TOPICAL ×2 (03:44→13:05)
[2025-02-13 03:49] VITALS: BMI 23.6
[2025-02-13] MEDS: Phenazopyridine 95 MG Tablet PO (04:23)
[2025-02-13] MEDS: Pravastatin 20 MG Tablet PO (09:00)
[2025-02-13] MEDS: Allopurinol 300 MG Tablet PO (09:00)
[2025-02-13] MEDS: Senna/Docusate Sodium 1 Tablet 2 TABLET PO (09:00)
[2025-02-13] MEDS: Ciprofloxacin 500 MG Tablet PO (09:01)
[2025-02-13] MEDS: APIXABAN 2.5 MG TABLET (WCH) PO (09:01)
[2025-02-13] MEDS: Ensure Plus High Protein 120 ML LIQUID PO (09:07)
[2025-02-13 10:00] VITALS: BP 118/88; PULSE 88; RESP 16; TEMP 36.4; O2SAT 97
--- NOTE | 2025-02-13 11:53 | CASEMGMT ---
Discharge Planning A list of HH providers including quality and resource use data and consistent with the patient's preferred geographic region, medical needs, and insurance network was created in CarePort Guide.? This list was provided to the RN DONNIE. Francesca Gonzalez, Discharge Planning Asst.
--- NOTE | 2025-02-13 13:27 | CASEMGMT ---
RN CM discussed discharge planning with daughter. Daughter declines [facility] at this time, list provided. RN DONNIE provided information regarding [employer] for DME needs in the future. Daughter had no further questions or concerns.
--- NOTE | 2025-02-13 14:15 | DCINST_ITS ---
Discharge Instructions Diet Discharge Diet: No restrictions DC O2, CPAP, BIPAP needs Home O2 Discharge instructions: No Dressing / Incision Discharge Activity: Return to Normal Activity Weight Bearing Status: Full weight bearing Follow Up Care Test Results: Test results from this visit will be discussed in further detail at your follow- up appointment, if applicable. Discharge Plan Admission Admit Date/Time: 02/09/25 15:37 Primary Reason for Your Visit: Urinary tract infection, low blood pressure Attending Provider: Butch Ridley Primary Care Provider: Butch Munoz Consulting Providers: Ariela Luciano Discharge Orders/Prescriptions Prescriptions: New ciprofloxacin HCl 500 mg Tablet 500 mg PO BID Qty: 7 0RF Rx Instructions: Start in the evening of 02/13/2025 furosemide [Lasix] 40 mg tablet 40 mg PO DAILY Qty: 1 0RF potassium chloride [K-Tab] 20 mEq tablet extended release 20 meq PO DAILY Qty: 1 0RF phenazopyridine [Pyridium] 100 mg tablet 100 mg PO TID Qty: 9 0RF Continued pravastatin 20 mg tablet 20 mg PO DAILY allopurinol 300 mg tablet 300 mg PO DAILY nitroglycerin 0.4 mg tablet, sublingual 0.4 mg SUBLINGUAL Q5-15M PRN (Reason: chest pain) niacin [Niaspan Extended-Release] 500 mg tablet extended release 24 hr 500 mg PO QHS carvedilol [Coreg] 3.125 mg tablet 3.125 mg PO BID amoxicillin 500 mg tablet 2,000 mg PO DAILY PRN (Reason: DENTIST) Patient Comments: 30-60 minutes prior to dental procedure/ONLY WHEN HE GOES TO DENTIST. Lumigan 0.01 % drops 1 drp OPHTHALMIC QHS Rx Instructions: 1 DROP IN BOTH EYES Centrum Silver Men 300-600-300 mcg tablet 1 tab PO DAILY Simbrinza 1-0.2 % drops,suspension 1 drp OPHTHALMIC BID triamcinolone acetonide 0.025 % cream 1 applic topical BID Patient Comments: APPLY TO RIGHT EAR lutein 10 mg tablet 10 mg PO DAILY Rx Instructions: give with meal/snack Eliquis 2.5 mg tablet 2.5 mg PO BID Qty: 60 0RF Discontinued furosemide [Lasix] 40 mg tablet 40 mg PO BID Rx Instructions: one tablet in the AM and one tablet 4-6 hours later potassium chloride 20 mEq Tablet,Er Particles/Crystals 20 meq PO BIDCM 30 Days Qty: 60 0RF Referrals / Follow Up: Butch Munoz MD [Primary Care Provider] - See Referral Note (In 2 weeks) Disposition Disposition (needs filled in before D/C Order can be placed): Home, Self Care
--- NOTE | 2025-02-13 14:22 | DS.PCM_ITS ---
Providers Date of Admission: 02/09/25 Date of Discharge: 02/13/25 Primary Care Physician: Dr. Butch Munoz MD Reason For Visit: LOW BLOOD PRESSURE, UTI Diagnosis Discharge Diagnosis (1) UTI (urinary tract infection): Status: Acute Code(s): N39.0 - Urinary tract infection, site not specified Plan 1. Acute cystitis-again urine culture grew out E. coli-sensitive to Cipro, patient is now on Cipro #2 Dehydration on a backdrop of chronic kidney disease stage IIIa-BMP will be monitored as needed #3 hypotension-possibly related to volume depletion, blood pressure will be monitored #4 permanent atrial fibrillation-patient is on a beta-sung and Eliquis #5 Acute severe protein caloric malnutrition-as evidenced by a 15.5% weight loss and p.o. intake meeting less than 75% of estimated nutritional needs, obvious fat/muscle loss throughout the body-diet has been liberalized to regular no added salt, Ensure Plus high-protein 4 times a day with med Pass was ordered, nutritional services is participating in his care Total clinical time spent by myself addressing the patient's medical issues, reviewing all of his data, and collaborating with patient's care team: 35 minutes Medications at Discharge Home Medications allopurinol 300 mg tablet 300 mg PO DAILY 09/13/17 amoxicillin 500 mg tablet 2,000 mg PO DAILY PRN DENTIST 09/13/17 bimatoprost 0.01 % eye drops (Lumigan) 1 drp ophthalmic (eye) QHS 09/13/17 carvedilol 3.125 mg tablet (Coreg) 3.125 mg PO BID 09/13/17 pzbsadro-hy-lgnnp 300 mcg-K 60 mcg-lycop 600 mcg-lutein 300 mcg tablet (Centrum Silver Men) 1 tab PO DAILY 09/13/17 niacin 500 mg tablet,extended release 24 hr (Niaspan) 500 mg PO QHS 09/13/17 nitroglycerin 0.4 mg sublingual tablet 0.4 mg sublingual Q5-15M PRN chest pain 09/13/17 pravastatin 20 mg tablet 20 mg PO DAILY 09/14/17 brinzolamide 1 %-brimonidine 0.2 % eye drops,suspension (Simbrinza) 1 drp ophthalmic (eye) BID 02/10/19 apixaban 2.5 mg tablet (Eliquis) 2.5 mg PO BID #60 tabs 12/07/24 lutein 10 mg tablet 10 mg PO DAILY 12/07/24 triamcinolone acetonide 0.025 % topical cream 1 applic topical BID 01/27/25 ciprofloxacin HCl 500 mg tablet 500 mg PO BID #7 tabs 02/13/25 furosemide 40 mg tablet (Lasix) 40 mg PO DAILY #1 TAB 02/13/25 phenazopyridine 100 mg tablet (Pyridium) 100 mg PO TID #9 tabs 02/13/25 potassium chloride 20 mEq tablet,extended release (K-Tab) 20 meq PO DAILY #1 TAB 02/13/25 Hospital Course Operations None Procedures None Summary of Care Provided Minutes Spent on Discharge: 31 Hospital Course: This 89-year-old white male was seen in the emergency room at [facility] with complaints of generalized weakness and inability to perform ADLs. He had suffered a fall at home due to the weakness but denied hitting his head and denied losing consciousness. Patient complained of dysuria. Patient also was in a house that did not have air conditioning and it was very hot outside. Labs obtained included a CBC which was remarkable for hemoglobin of 12.4, patient's chemistry profile was remarkable for creatinine of 1.32 and a BUN of 41. Patient's troponin was slightly elevated at 59 and 53 respectively, urinalysis showed over 100 white blood cells and +2 bacteria. EKG showed atrial fibrillation which the patient was known to have chronically. There is a small left pleural effusion noted on the chest x-ray with left basilar infiltration and/or atelectasis. Patient was admitted to [facility] to and placed on IV antibiotics, his diuretics were held and he was given fluids and his blood pressure responded to fluid administration. Patient's urine culture grew out E. coli which was sensitive to Cipro, patient's antibiotic was changed to Cipro during his hospitalization. He was seen in consultation with PT and OT as well as nutritional services, he was felt to have malnutrition. Patient was transferred to PCU and his status improved, his blood pressure improved. Due to his cardiomyopathy however I felt that his diuretics needed to be resumed as an outpatient but at a smaller dosage. On 02/13/2025, patient was seen and examined:alert, oriented x3 and no apparent distress Constitutional Narrative: Patient appears cachectic General Appearance: cooperative, well kempt and well developed Orientation / Consciousness: awake, oriented to person, oriented to place and oriented to time HEENT normocephalic, head/scalp atraumatic and moist oral mucous membranes Eyes PERRL, EOMs intact bilaterally and conjunctivae normal Neck supple, no JVD, thyroid normal and no carotid bruits General: trachea midline Resp normal respiratory effort, no retractions, no use of accessory muscles and clear to auscultation bilaterally Auscultation: Negative for rales, rhonchi or wheezes Cardio S1 normal heart sound, S2 normal heart sound, no murmurs, no rub and no gallops Cardio Narrative: Heart rate and rhythm is irregular GI normal to inspection, nondistended, normoactive bowel sounds, soft to palpation, non-tender and non-distended Extremity no clubbing, cyanosis or edema Skin no rashes or lesions noted General Skin Exam: no breakdown Neuro oriented x3, CN's II-XII intact bilaterally, moves all extremities, no focal motor deficits and no sensory deficits noted Sensorium / Orientation: awake and alert Speech: speech normal Psych affect normal Patient was felt to be stable for discharge home on 02/13/2025, family decided against having a home nursing service to see the patient in his home. Medical Records Data Medical Nutrition Assessment Dietitian: Malnutrition Criteria Met Start: 02/10/25 09:54 Freq: Status: Active Protocol: Document 02/13/25 11:10 SB (Rec: 02/13/25 11:10 SB [id number]) Nutrition Malnutrition Evidence of Yes Malnutrition Exists Malnutrition (severe Acute Illness/Injury ): Evidenced By Suboptimal Energy Intake (Severe),Weight Loss (Severe), Physical Changes (Severe) Clinical Problem Acute Disease or Injury Related Malnutrition Etiology severe related to inadequate oral and energy intake Signs/Symptoms as evidenced by PO intake meeting <50% of estimated nutrition needs x 1 month, 8% unintentional weight loss x 1 month, and severe muscle/fat wasting in clavicle, temples, and orbitals. Status Active Problem Chronic Disease or Condition Related Malnutrition Status Inactive Problem Recommendation Dietitian Continue regular; no added salt diet with fortified Recommendations/ foods TID with meals. Changes Will discontinue ensure plus high protein 4x/day with medpass due to pt's dislike. Will order chocolate magic cup TID with meals. Will monitor weight trends. Weight / BMI Weight Weight: 79.2 kg Body Mass Index (BMI) 23.6 ABG / Lab / Microbiology Data 02/10/25 09:00 02/10/25 09:00 Microbiology: Microbiology 02/09/25 12:47 Blood Culture (Wb) - Left Forearm Blood Culture - Preliminary No growth in 48 hours. 02/09/25 11:35 Blood Culture (Wb) - Left Forearm Blood Culture - Preliminary No growth in 48 hours. 02/09/25 11:56 Urine, Clean Catch Urine Culture - Final Escherichia coli 02/09/25 11:56 Urine, Clean Catch Urine Culture - Final Escherichia coli D/C Instructions Discharge Diet: No restrictions Weight Bearing Status: Full weight bearing DC O2, CPAP, BIPAP Needs Home O2 Discharge instructions: No Meaningful Use Info Meaningful Use Meaningful Use Diagnoses (Choose all that apply): None applicable Ischemic Stroke Statin Dosing Therapy Reference: STATIN DOSE THERAPY REFERENCE: * Patients > 75 years receive moderate or high dose statin therapy. * Patients 75 years or YOUNGER should receive HIGH intensity statin dose unless contraindicated. You will be required to document reason for non-treatment if statin daily dose does not meet guidelines. HIGH DOSE STATIN THERAPY DAILY Atorvastatin > than or = to 40 mg Rosuvastatin > than or = to 20 mg Amlodipine + Atorvastatin > than or = to 2.5/40 mg Ezetimibe + Simvastatin 10/80 mg Simvastatin 80mg Discharge Plan Admission Admit Date/Time: 02/09/25 15:37 Primary Reason for Your Visit: Urinary tract infection, low blood pressure Attending Provider: Butch Ridley Primary Care Provider: Butch Munoz Consulting Providers: Ariela Luciano Discharge Orders/Prescriptions Prescriptions: New ciprofloxacin HCl 500 mg Tablet 500 mg PO BID Qty: 7 0RF Rx Instructions: Start in the evening of 02/13/2025 furosemide [Lasix] 40 mg tablet 40 mg PO DAILY Qty: 1 0RF potassium chloride [K-Tab] 20 mEq tablet extended release 20 meq PO DAILY Qty: 1 0RF phenazopyridine [Pyridium] 100 mg tablet 100 mg PO TID Qty: 9 0RF Continued pravastatin 20 mg tablet 20 mg PO DAILY allopurinol 300 mg tablet 300 mg PO DAILY nitroglycerin 0.4 mg tablet, sublingual 0.4 mg SUBLINGUAL Q5-15M PRN (Reason: chest pain) niacin [Niaspan Extended-Release] 500 mg tablet extended release 24 hr 500 mg PO QHS carvedilol [Coreg] 3.125 mg tablet 3.125 mg PO BID amoxicillin 500 mg tablet 2,000 mg PO DAILY PRN (Reason: DENTIST) Patient Comments: 30-60 minutes prior to dental procedure/ONLY WHEN HE GOES TO DENTIST. Lumigan 0.01 % drops 1 drp OPHTHALMIC QHS Rx Instructions: 1 DROP IN BOTH EYES Centrum Silver Men 300-600-300 mcg tablet 1 tab PO DAILY Simbrinza 1-0.2 % drops,suspension 1 drp OPHTHALMIC BID triamcinolone acetonide 0.025 % cream 1 applic topical BID Patient Comments: APPLY TO RIGHT EAR lutein 10 mg tablet 10 mg PO DAILY Rx Instructions: give with meal/snack Eliquis 2.5 mg tablet 2.5 mg PO BID Qty: 60 0RF Discontinued furosemide [Lasix] 40 mg tablet 40 mg PO BID Rx Instructions: one tablet in the AM and one tablet 4-6 hours later potassium chloride 20 mEq Tablet,Er Particles/Crystals 20 meq PO BIDCM 30 Days Qty: 60 0RF Referrals / Follow Up: Butch Munoz MD [Primary Care Provider] - 02/24/25 2:15 pm (In 2 weeks) Disposition Disposition (needs filled in before D/C Order can be placed): Home, Self Care Charges/Coding Visit Charges Inpatient E&M: 05857 Disch Hosp >30min
[2025-02-13 15:00] VITALS: BP 115/78; PULSE 87; RESP 16; TEMP 36.3; O2SAT 98
== END 2025-02-13 15:42 | disposition home or self-care (01) | DRG 689 ==
LOC: ED 15:38 → ICU 16:00 → PCU 02-11 14:19
PROVIDERS: Admitting Provider Internal Medicine; Emergency Provider Emergency Medicine; PCP Family Medicine; Referring Provider Emergency Medicine; Visit Provider Internal Medicine
DX: N30.00 Acute cystitis without hematuria (principal); E43 Unspecified severe protein-calorie malnutrition; I48.21 Permanent atrial fibrillation; I42.9 Cardiomyopathy, unspecified; J90 Pleural effusion, not elsewhere classified; J98.11 Atelectasis; E86.0 Dehydration; B96.20 Unspecified Escherichia coli [E. coli] as the cause of diseases classified elsewhere; N18.31 Chronic kidney disease, stage 3a; I34.0 Nonrheumatic mitral (valve) insufficiency; I12.9 Hypertensive chronic kidney disease with stage 1 through stage 4 chronic kidney disease, or unspecified chronic kidney disease; E78.5 Hyperlipidemia, unspecified; I25.10 Atherosclerotic heart disease of native coronary artery without angina pectoris; M10.9 Gout, unspecified; I25.2 Old myocardial infarction; I95.9 Hypotension, unspecified; Z79.01 Long term (current) use of anticoagulants; Z95.5 Presence of coronary angioplasty implant and graft; Z79.82 Long term (current) use of aspirin; Z68.21 Body mass index [BMI] 21.0-21.9, adult
CPT/HCPCS: 70450; 71046; 72125; 80048; 80053; 81001; 83605; 84484; 85025; 85610; 85730; 87040; 87077; 87086; 87088; 87186; 93005; 94668; 94762; 97162; 97166; 97530; 97535; 99252; 99285; A4216; G0463

== ENCOUNTER 2025-02-27 14:43 | Inpatient (IN) | payer MEDICARE, SELFPAY ==
[2025-02-27] VITALS (10 sets, daily range): BP systolic 86–102; BP diastolic 58–75; PULSE 84–102; RESP 16–28; TEMP 36.3–36.9; O2SAT 94–98; BMI 23.4; BMI 22.2
--- NOTE | 2025-02-27 15:30 | EKG12_ITS ---
Test Reason : LE/SCHWANNE Blood Pressure : */* mmHG Vent. Rate : 92 BPM Atrial Rate : 63 BPM P-R Int : * ms QRS Dur : 154 ms QT Int : 412 ms P-R-T Axes : * -53 111 degrees QTcB Int : 509 ms AFIB WITH PVC Left axis deviation Left bundle branch block Abnormal ECG Confirmed by Isidro Wong ([id number]), editorial intern DU RODRIGUEZ ([id number]) on 03/01/2025 11:19:21 AM Referred By: Blair Orourke Confirmed By: Isidro Wong
--- NOTE | 2025-02-27 15:40 | EX.ED.DYSGE1 ---
HPI History of Present Illness Chief Complaint: Weakness Narrative Narrative: 89-year-old male presents via EMS with generalized weakness for the last 2 days and diarrhea for the last week. He denies any recent antibiotics. He states he has past medical history of CHF and wears oxygen sometimes. His daughter called EMS today because he has been weak for the last 2 days and he states he was unable to get up off the stool. He denies any fevers or chills, no nausea or vomiting but states he has had loose stools a few times a day and diarrhea for the last week. It is nonbloody. He denies any abdominal pain. No chest pain, no exacerbating or alleviating factors. [facility] Medical History UTI (urinary tract infection) Heart failure with preserved ejection fraction Kidney disease Non-smoker On home oxygen therapy Coronary artery disease Myocardial infarct DVT (deep venous thrombosis) Gout Atherosclerosis of coronary artery of [place] heart without angina pectoris Hypertension Hyperlipidemia Old inferior wall myocardial infarction Home Medications ?Medication ?Instructions ?Recorded ?Last Taken ?Type allopurinol 300 mg tablet 300 mg PO DAILY 09/13/17 02/09/25 History amoxicillin 500 mg tablet 2,000 mg PO DAILY PRN DENTIST 09/13/17 Unknown History bimatoprost 0.01 % eye drops 1 drp ophthalmic (eye) QHS 09/13/17 12/07/24 History ([place]) carvedilol 3.125 mg tablet (Coreg) 3.125 mg PO BID 09/13/17 02/09/25 History hrmzncfd-pb-lzvqi 300 mcg-K 60 1 tab PO DAILY 09/13/17 02/09/25 History mcg-lycop 600 mcg-lutein 300 mcg tablet (Centrum [facility]) nitroglycerin 0.4 mg sublingual 0.4 mg sublingual Q5-15M PRN chest 09/13/17 Unknown History tablet pain brinzolamide 1 %-brimonidine 0.2 % 1 drp ophthalmic (eye) BID 02/10/19 Unknown History eye drops,suspension (Simbrinza) apixaban 2.5 mg tablet (Eliquis) 2.5 mg PO BID #60 tabs 12/07/24 02/09/25 Rx lutein 10 mg tablet 10 mg PO DAILY 12/07/24 02/09/25 History furosemide 40 mg tablet (Lasix) 40 mg PO DAILY #1 TAB 02/13/25 02/27/25 Rx Lactobacillus acidophilus 10 10,000 mmu cells PO DAILY 02/27/25 Unknown History billion cell capsule (Probacap) potassium chloride 20 mEq 20 meq PO BID 02/27/25 Unknown History tablet,extended release(part/cryst) pravastatin 20 mg tablet 20 mg PO DAILY 02/27/25 Unknown History Allergy/AdvReac Type Severity Reaction Status Date / Time SHARON Inhibitors AdvReac Hypotensive Verified 02/15/25 15:15 Family History Mother , AGe 71 Congestive heart failure Sister , Age 66 CAD (coronary artery disease) Breast cancer S/P CABG (coronary artery bypass graft) Surgical History History of coronary artery stent placement H/O bilateral inguinal hernia repair H/O bilateral hip replacements H/O right coronary artery stent placement (06/13/10) Social History household members: spouse housing: house current occupational status: retired Smoking Status: Never smoker ROS ROS ED ROS Narrative Review of systems positive for watery stool/diarrhea x 1 week. Positive generalized weakness for 2 days. No fevers or chills, no nausea or vomiting, no abdominal pain, no chest pain. No cough or shortness of breath. EXAM Physical Exam Narrative Exam Narrative: Afebrile. Vital signs noted. Nontoxic-appearing. Cardiovascular examination reveals an irregularly irregular rhythm that is rate controlled at 93 bpm. Lungs are clear to auscultation bilaterally. Abdomen is soft and nontender without guarding or rebound. Positive bowel sounds. Neurological examination shows him to be awake, alert, oriented, interactive and answering questions appropriately. Const Vital Signs: 02/27/25 14:45 02/27/25 15:21 02/27/25 15:25 Temperature 98.4 F Temperature Source Oral Pulse Rate 93 Respiratory Rate 27 H Respiratory Effort Labored Respiratory Depth Normal Respiratory Pattern Normal Normal Blood Pressure 102/65 Blood Pressure Mean 77 Pulse Ox 94 Oxygen Delivery Method Nasal Cannula Room Air Oxygen Flow Rate (L/min) 4 02/27/25 15:44 02/27/25 16:00 02/27/25 17:00 Temperature Temperature Source Pulse Rate 89 102 H 97 Respiratory Rate 28 H 26 H 23 H Respiratory Effort Respiratory Depth Respiratory Pattern Blood Pressure 98/71 98/71 101/75 Blood Pressure Mean 80 80 83 Pulse Ox Oxygen Delivery Method Nasal Cannula Nasal Cannula Nasal Cannula Oxygen Flow Rate (L/min) 4 4 4 02/27/25 17:25 Temperature Temperature Source Pulse Rate 94 Respiratory Rate 16 Respiratory Effort Respiratory Depth Respiratory Pattern Blood Pressure 92/71 Blood Pressure Mean 78 Pulse Ox 95 Oxygen Delivery Method Nasal Cannula Oxygen Flow Rate (L/min) 4 MDM MDM MDM Narrative Medical decision making narrative: Differential diagnosis includes but not limited to dehydration versus electrolyte imbalance. Regarding his diarrhea if he produces a stool sample, will be sent for studies. As he has had diarrhea for a week, concern would be for colitis versus diverticulitis but history and physical does not support this as he has a nontender abdomen. However, I do feel that given his age the concern would be for a colitis for his diarrhea and he may have an electrolyte imbalance especially hypokalemia causing his generalized weakness. Infectious cause will be considered as well and a chest x-ray obtained to rule out pneumonia as well as urinalysis. EKG was obtained and interpreted by myself independently as atrial fibrillation at 92 bpm without other ectopy or acute ST changes. No STEMI. I reviewed his laboratory work and he has slight elevation of his white count of 11.8 which I think is nonspecific, hemoglobin normal at 13.2 with hematocrit 39.3, platelet count normal at 160. Electrolyte panel shows CO2 low at 19.7 with BUN of 33 and creatinine 1.1, LFTs show alk phos elevated to 43 which I think is nonspecific. BNP is elevated 15,160, when compared to prior labs, much higher than baseline. Urinalysis is negative for infection and ketones. He was able to give a stool sample with C. difficile, ova and parasites and other stool studies pending. I did review his outpatient record and he had an echocardiogram performed that showed an ejection fraction of 40% but global hypokinesis of the left ventricle. He does have a tenuous blood pressure/soft at 98/71 currently so I am hesitant to give him more diuretic. I discussed patient with Dr. Mckeon for admission to the PCU. I also discussed patient with cardiology, Dr. Wong. It was felt that he may be more dehydrated as in review of his prior admission, he diuresed at least 30 pounds. It was felt by cardiology that he could be given small aliquots of IV fluid, 500 mL at a time. If the patient experiences pulmonary edema or oxygen desaturation, IV fluids would be stopped and he would be diuresed. Disposition is admit in stable condition. Of note, per RN, he is triggering sepsis because of an elevated bilirubin. However I do not feel that he is septic as he does not have a fever, no elevated white count above 12, and once again his low systolic blood pressure may be secondary to intravascular volume depletion and dehydration. History & Record Review Discussion w/independent historian: Patient and Family Additional record(s) reviewed:: Prior inpatient record (Echo with a EF of 40%), Prior ED visit and Prior labs Lab Data Attestation: I reviewed the patient's lab results. Labs: Laboratory Results - last 24 hr 02/27/25 02/27/25 02/27/25 15:14 16:06 16:10 WBC 11.8 H RBC 3.57 L Hgb 13.2 Hct 39.3 L MCV 110.1 H MCH 37.0 H MCHC 33.6 RDW Std Deviation 66.2 H RDW Coeff of [place] 16.1 H Plt Count 160 MPV 11.2 Immature Gran % (Auto) 0.600 Neut % (Auto) 76.6 H Lymph % (Auto) 6.5 L Gillespie % (Auto) 15.2 H Eos % (Auto) 0.2 Baso % (Auto) 0.9 Absolute Neuts (auto) 9.1 H Absolute Lymphs (auto) 0.77 L Nucleated RBC % 0 Sodium 136 Potassium 3.7 Chloride 103 Carbon Dioxide 19.7 L Anion Gap 13 BUN 33 H Creatinine 1.10 Estim Creat Clear Calc 50.95 Est GFR (MDRD) Non-Af 65 BUN/Creatinine Ratio 30.0 H Glucose 98 Calcium 8.2 Total Bilirubin 2.04 H AST 27 ALT 22 Alkaline Phosphatase 243 [place] [address] H Total Protein 5.5 L Albumin 2.4 L Globulin 3.2 Albumin/Globulin Ratio 0.7 L Urine Color Yellow Urine Clarity Clear Urine pH 6.0 Ur Specific [place] 1.015 Urine Protein 15 H Urine Glucose (UA) Normal Urine Ketones Negative Urine Occult Blood 10 H Urine Nitrite Negative Urine Bilirubin Negative Urine Urobilinogen Normal Ur Leukocyte Esterase 100 H Urine RBC 0-5 SEEN Urine WBC 5-10 SEEN Ur Squamous Epith Cells 0-5 SEEN Urine Bacteria 1+ Hyaline Casts 0-5 SEEN Urine Mucus 1+ Radiography Diagnostic Testing: Clinical Impression(s) from Imaging Studies Chest X-Ray 02/27/25 16:45 IMPRESSION: Shallow inspiration with associated bibasilar atelectasis. Probable mild cardiomegaly, vascular congestion and interstitial edema. No large pleural effusions. Reading Location: [id number] Management Discussion w/another healthcare provider: Hospitalist, Air Conditioning Service Technician and packing room worker/Case management Discharge Plan Dx/Rx/DC Orders Clinical Impression: Diarrhea, CHF (congestive heart failure), Malnutrition, Generalized weakness Disposition Disposition: Acute Care [facility]
[2025-02-27 16:14] LABS: Color, Urine Yellow (Yellow); Glucose, Dipstick Normal (Normal); Ketone-Dipstick Negative (Negative); Leukocyte Esterase-Dipstick 100 /ul (Negative); Nitrite-Dipstick Negative (Negative); Occult Blood-Urine 10 /ul (Negative); Protein-Dipstick 15 mg/dl (Negative); Specific Gravity, Urine 1.015 (1.002-1.030); Urine Bilirubin Dipstick Negative (Negative)
[2025-02-27 16:22] LABS: Hematocrit 39.3 % (40-54); Hemoglobin 13.2 g/dL (13.0-16.5); Immature Granulocytes Count 0.070 X10^3/uL (0.0-0.0); Mean Corp Hgb Conc 33.6 g/dL (32-36); Mean Corpuscular Volume 110.1 fL (80-94); Mean Platelet Vol. 11.2 fl (6.2-12.0); NRBC Flagged by Analyzer 0 % (0-5); POSITIVE DIFFERENTIAL YES; POSITIVE MORPHOLOGY YES; Platelet Count 160 K/mm3 (150-450); RBC Distribution Width CV 16.1 % (11.6-14.6); RBC Distribution Width SD 66.2 fl (35.1-43.9); Red Blood Count 3.57 M/mm3 (4.6-6.2); White Blood Count 11.8 K/mm3 (4.4-11.0)
[2025-02-27 16:26] LABS: Differential Indicated SCAN CRITERIA MET
[2025-02-27 16:28] LABS: AST(SGOT) 27 U/L (<=37); Alanine Aminotransfer ALT/SGPT 22 U/L (<=46); Albumin, Serum 2.4 g/dL (3.4-4.8); Alkaline Phosphatase 243 U/L (40-129); Anion Gap 13 (5-15); BUN 33 mg/dL (4-19); BUN/Creat Ratio 30.0 RATIO (10-20); Calcium,Total 8.2 mg/dL (7.6-11.0); Carbon Dioxide 19.7 mmol/L (21.0-32.0); Chloride 103 mmol/L (98-108); Estimated Creatinine Clearance 50.95 ml/min (50-250); Globulin 3.2 g/dL (2.2-4.2); Glucose 98 mg/dL (70-99); Potassium 3.7 mmol/L (3.3-5.1); Pro- Brain NATRIURETIC PEPTIDE 15160 pg/mL (<=1800)
--- NOTE | 2025-02-27 16:35 | CT_ITS ---
PROCEDURE: ABDOMEN/PELVIS W IV CONT ONLY 02/27/2025 REASON FOR EXAM: DIARRHEA TECHNIQUE: ABDOMEN/PELVIS W IV CONT ONLY Coronal and Sagittal reconstruction series were provided. CONTRAST: 100 mL of Isovue 370 One or more dose reduction techniques were used (e.g., Automated exposure control, adjustment of the mA and/or kV according to patient size, use of iterative reconstruction technique. RADIATION DOSE SUMMARY: DLP: 1218 mGycm COMPARISON: 1219 FINDINGS: Limited sections of the lung bases demonstrate no focal pulmonary mass or consolidations. Bilateral atelectasis. Moderate pleural effusion within the right and mild pleural effusion within the left. Extensive coronary atherosclerosis. The liver, spleen, pancreas, and both adrenal glands demonstrate no acute findings. Mild hepatic steatosis. 1.4 x 1.2 cm splenic cyst with calcifications. Fatty atrophy of pancreas. The gallbladder is unremarkable. The stomach is unremarkable. The small bowel loops are not dilated. The appendix is not clearly identified, although there are no secondary signs of appendicitis. Diffusely thickened and inflamed colon likely reflective of pancolitis. No bowel obstruction. There is no free air or significant free fluid. Large bilateral renal cysts measuring 6 cm within the left and 2.8 cm within the right. Mildly thickened urinary bladder wall which may reflect cystitis vs nondistention; consider correlation with urinalysis. Small bladder diverticulum is noted. The pelvic structures are intact. There is no solid pelvic mass. No significant lymphadenopathy. Diffuse anasarca. The aorta and IVC demonstrate no acute findings. Extensive atherosclerosis of the abdominal vasculature. Visualized osseous structures demonstrate no acute abnormality. Severe multilevel degenerative changes of the lumbar spine. Diffuse osteopenia. Bilateral hip prosthesis with streak artifact limiting evaluation of lower pelvic soft tissue and osseous structures.. CT/Abdomen/Pelvis W IV Cont ONLY IMPRESSION: Diffusely thickened and inflamed colon likely reflective of pancolitis. No bow el obstruction. Mildly thickened urinary bladder wall which may reflect cystitis vs nondistenti on; consider correlation with urinalysis. Moderate pleural effusion within the right and mild pleural effusion within the left. Reading Location: [facility]
--- NOTE | 2025-02-27 16:45 | RAD_ITS ---
PROCEDURE: CHEST 1 VIEW (PORTABLE) 02/27/2025 REASON FOR EXAM: CHF, SHORTNESS OF BREATH TECHNIQUE: Frontal view of the chest. COMPARISON: 02/09/2025 FINDINGS: Lungs/Pleura: Shallow inspiration, with associated bronchovascular crowding and bibasilar streaky subsegmental atelectasis. Mild interstitial reticular opacities may represent interstitial edema. No large pleural effusion. No pneumothorax. Vascular congestion. Heart/Mediastinum: Prominent cardiac silhouette likely exaggerated by technique. Bones/Soft tissues: Multilevel degenerative changes of the spine and advanced bilateral shoulder arthrosis. RAD/Chest 1 View (Portable) IMPRESSION: Shallow inspiration with associated bibasilar atelectasis. Probable mild cardi omegaly, vascular congestion and interstitial edema. No large pleural effusions. Reading Location: [id number]
[2025-02-27 17:09] LABS: Mucous, Urine 1+ /hpf (<or=2+); Squamous Epithelial Cells - UA 0-5 SEEN /hpf (0-5)
[2025-02-27 17:10] LABS: Red Blood Cells-Urine 0-5 SEEN /hpf (0-5)
--- NOTE | 2025-02-27 18:01 | PCM.HP.STD ---
HPI - General General Date of Admission: 02/27/25 Date of Service: 02/27/25 Chief Complaint: Diarrhea for 2 weeks, very weak, mild short of breath on exertion. HPI Narrative VALDO DUTTA, is a 89 M with multiple comorbidities including heart failure on home oxygen sometime came to ED for 2 weeks of diarrhea, very weak, not able to ambulate or stand up for 2 days. Patient denies any recent antibiotic. No fever or chills, nausea or vomiting. He is on water pill and urinates about 7-8 times but for last 3 to 4 days it has been mustard colored, less amount. Patient is also feeling very thirsty. He describes his diarrhea as loose about 3-4 times a day, nonbloody. He denies any abdominal pain or abdominal cramps but has bloating sensation and discomfort. In ED, patient was found with low blood pressure 102/65, requiring 4 L of oxygen, heart rate 93/min and tachypneic. ED physician discussed with ware tester Dr. Wong and he agreed for giving IV fluid in increments of 500 bolus with regular reassessment. Chest x-ray and CT abdomen with IV contrast shows pulmonary venous congestion and right moderate pleural effusion. CT abdomen shows gaseous distention, diffuse thickening and inflammation of the large intestine/colon suggestive of pancolitis. [facility] Medical History UTI (urinary tract infection) Heart failure with preserved ejection fraction Kidney disease Non-smoker On home oxygen therapy Coronary artery disease Myocardial infarct DVT (deep venous thrombosis) Gout Atherosclerosis of coronary artery of [place] heart without angina pectoris Hypertension Hyperlipidemia Old inferior wall myocardial infarction Home Medications ?Medication ?Instructions ?Recorded ?Last Taken ?Type allopurinol 300 mg tablet 300 mg PO DAILY 09/13/17 02/09/25 History amoxicillin 500 mg tablet 2,000 mg PO DAILY PRN DENTIST 09/13/17 Unknown History bimatoprost 0.01 % eye drops 1 drp ophthalmic (eye) QHS 09/13/17 12/07/24 History ([place]) carvedilol 3.125 mg tablet (Coreg) 3.125 mg PO BID 09/13/17 02/09/25 History hhbheixv-bp-dusuv 300 mcg-K 60 1 tab PO DAILY 09/13/17 02/09/25 History mcg-lycop 600 mcg-lutein 300 mcg tablet (Centrum Silver Men) nitroglycerin 0.4 mg sublingual 0.4 mg sublingual Q5-15M PRN chest 09/13/17 Unknown History tablet pain brinzolamide 1 %-brimonidine 0.2 % 1 drp ophthalmic (eye) BID 02/10/19 Unknown History eye drops,suspension (Simbrinza) apixaban 2.5 mg tablet (Eliquis) 2.5 mg PO BID #60 tabs 12/07/24 02/09/25 Rx lutein 10 mg tablet 10 mg PO DAILY 12/07/24 02/09/25 History furosemide 40 mg tablet (Lasix) 40 mg PO DAILY #1 TAB 02/13/25 02/27/25 Rx Lactobacillus acidophilus 10 10,000 mmu cells PO DAILY 02/27/25 Unknown History billion cell capsule (Probacap) potassium chloride 20 mEq 20 meq PO BID 02/27/25 Unknown History tablet,extended release(part/cryst) pravastatin 20 mg tablet 20 mg PO DAILY 02/27/25 Unknown History Allergy/AdvReac Type Severity Reaction Status Date / Time SHARON Inhibitors AdvReac Hypotensive Verified 02/15/25 15:15 Family History Mother , AGe 71 Congestive heart failure Sister , Age 66 CAD (coronary artery disease) Breast cancer S/P CABG (coronary artery bypass graft) Surgical History History of coronary artery stent placement H/O bilateral inguinal hernia repair H/O bilateral hip replacements H/O right coronary artery stent placement (06/13/10) Social History household members: spouse housing: house current occupational status: retired Smoking Status: Never smoker ROS ROS Narrative Complete 12 system ROS limited because of patient hearing loss, very fatigued. His also has deafness and wears bone-anchored hearing aid. Constitutional: Reports fatigue and weakness. No fever. HEENT: Reports systems reviewed and no addt'l complaints, except as documented Respiratory/Chest: Dyspnea on exertion, no acute shortness of breath or respiratory distress or wheezing. CVS: No acute chest pain pressure or tightness. Gastrointestinal: As described in HPI. No vomiting or GI bleed Genitourinary: Denies burning urination or new urinary tract symptoms. Decreased urine output Musculoskeletal: Chronic bilateral shoulder weakness. Denies acute joint pain or limited range of motion. No acute injury Neurologic: Denies seizure-like symptoms. skin: No ulcer. No rash Endocrinology: Reports systems reviewed and no addt'l complaints, except as documented Hematologic/Lymphatic: Reports systems reviewed and no addt'l complaints, except as documented Rest 14 ROS are negative except as mentioned in HPI Vital Signs Vital Signs Vital Signs: 02/27/25 14:45 02/27/25 15:21 02/27/25 15:25 Temperature 98.4 F Temperature Source Oral Pulse Rate 93 Respiratory Rate 27 H Respiratory Effort Labored Respiratory Depth Normal Respiratory Pattern Normal Normal Blood Pressure 102/65 Blood Pressure Mean 77 Pulse Ox 94 Oxygen Delivery Method Nasal Cannula Room Air Oxygen Flow Rate (L/min) 4 02/27/25 15:44 02/27/25 16:00 02/27/25 17:00 Temperature Temperature Source Pulse Rate 89 102 H 97 Respiratory Rate 28 H 26 H 23 H Respiratory Effort Respiratory Depth Respiratory Pattern Blood Pressure 98/71 98/71 101/75 Blood Pressure Mean 80 80 83 Pulse Ox Oxygen Delivery Method Nasal Cannula Nasal Cannula Nasal Cannula Oxygen Flow Rate (L/min) 4 4 4 02/27/25 17:25 Temperature Temperature Source Pulse Rate 94 Respiratory Rate 16 Respiratory Effort Respiratory Depth Respiratory Pattern Blood Pressure 92/71 Blood Pressure Mean 78 Pulse Ox 95 Oxygen Delivery Method Nasal Cannula Oxygen Flow Rate (L/min) 4 Weight Weight: 172 lb 13.478 oz Body Mass Index (BMI) 23.4 Physical Exam Narrative General: Alert, awake oriented x3, Cooperative HEENT: Atraumatic, PERRLA, EOMI, Normocephalic. Oral: No Gingival or Mucosal Lesions/ Ulcerations Neck: Supple, No JVD, Negative Carotid Bruits Chest wall/Lungs: Dyspnea on exertion, air entry diminished in right lung base. No crepitations. Right moderate effusion Cardiovascular: Irregular rhythm, systolic murmur Abdomen: Bowel Sounds sluggish, soft. Nontender. No guarding/rigidity : No dysuria. No renal angle tenderness. No suprapubic tenderness. Extremities: No edema, Capillary Refill Less than 3 Seconds Skin: Purplish discoloration/peripheral cyanosis of tips of fingers Musculoskeletal: No Tenderness to Palpation of Joints or Extremities. Bilateral shoulder weakness, cannot raise above 40 to 50 degree., Chronic Neurological: Cranial nerves II-XII grossly intact, DTR 2/4, lower extremities, 4/5 at knees and hip joints Psych/Mental Status: Flat affect Results Lab / Micro Data 02/27/25 16:10 02/27/25 15:14 Labs: Laboratory Results - last 24 hr 02/27/25 15:14: Sodium 136, Potassium 3.7, Chloride 103, Carbon Dioxide 19.7 L, Anion Gap 13, BUN 33 H, Creatinine 1.10, Estim Creat Clear Calc 50.95, Est GFR (MDRD) Non-Af 65, BUN/Creatinine Ratio 30.0 H, Glucose 98, Calcium 8.2, Total Bilirubin 2.04 H, AST 27, ALT 22, Alkaline Phosphatase 243 H, [place] [address] H, Total Protein 5.5 L, Albumin 2.4 L, Globulin 3.2, Albumin/Globulin Ratio 0.7 L 02/27/25 16:06: Urine Color Yellow, Urine Clarity Clear, Urine pH 6.0, Ur Specific [place] 1.015, Urine Protein 15 H, Urine Glucose (UA) Normal, Urine Ketones Negative, Urine Occult Blood 10 H, Urine Nitrite Negative, Urine Bilirubin Negative, Urine Urobilinogen Normal, Ur Leukocyte Esterase 100 H, Urine RBC 0-5 SEEN, Urine WBC 5-10 SEEN, Ur Squamous Epith Cells 0-5 SEEN, Urine Bacteria 1+, Hyaline Casts 0-5 SEEN, Urine Mucus 1+ 02/27/25 16:10: WBC 11.8 H, RBC 3.57 L, Hgb 13.2, Hct 39.3 L, MCV 110.1 H, MCH 37.0 H, MCHC 33.6, RDW Std Deviation 66.2 H, RDW Coeff of [place] 16.1 H, Plt Count 160, MPV 11.2, Immature Gran % (Auto) 0.600, Neut % (Auto) 76.6 H, Lymph % (Auto) 6.5 L, Parke % (Auto) 15.2 H, Eos % (Auto) 0.2, Baso % (Auto) 0.9, Absolute Neuts (auto) 9.1 H, Absolute Lymphs (auto) 0.77 L, Nucleated RBC % 0 Micro: Microbiology 02/27/25 16:04 Stool Stool Lactoferrin - Final Imaging Radiology Impression Chest X-Ray 02/27/25 16:45 IMPRESSION: Shallow inspiration with associated bibasilar atelectasis. Probable mild cardiomegaly, vascular congestion and interstitial edema. No large pleural effusions. Reading Location: [facility] Assessment & Plan Assessment/Plan (1) C. difficile colitis: (2) Generalized weakness: (3) CKD (chronic kidney disease), stage III: QUALIFIERS: Chronic kidney disease stage 3 subtype: stage 3b (GFR 30-44) Qualified Code(s): N18.32 - Chronic kidney disease, stage 3b PLAN: Plan This 89-year-old gentleman being admitted for generalized fatigue/acute debility due to diarrhea for 2 weeks 1. Acute dehydration/debility due to C. difficile colitis, low BP and hypoperfusion and colonic ileus: Patient is being admitted in PCU. Patient has mild leukocytosis with neutrophilia and lymphopenia. The patient had CT abdomen/pelvis with IV contrast in ED, images individually reviewed. It shows diffusely thickened and inflamed colon with gas in the colon suggestive of C. difficile pancolitis. C. difficile test came positive of A and B antigens and toxins positive. The patient has decreased bowel sound therefore ileus. Keep n.p.o. except medications. IV fluid Ringer lactate 1 L over 2 hours and then 75 mL/h. Hold diuretics. Vancomycin 125 mg p.o. Q6 hourly ordered. Probiotic lactobacillus ordered. Consider restarting clear liquid from tomorrow During last admission patient had E. coli cystitis and and was discharged on Cipro. 2. Combined chronic HFrEF and chronic HFpEF, chronic A-fib on Eliquis, atherosclerotic heart disease status post BMS: Patient was evaluated by Dr. Isidro Wong in office in March 10. Twelve-lead EKG in ED reviewed. A-fib, LAD, LBBB at 92 bpm. Chest x-ray shows right mild pleural effusion with associated atelectasis. proBNP elevated and chest x-ray reported pulmonary congestion/interstitial edema. Clinically patient is dry and therefore IV fluid ordered as mentioned above. Heart failure core measures including intake and output, daily weight monitoring, kidney and electrolytes monitoring. Senior Animator Dr. Wong is consulted. Last echo in December 2024 shows EF 40%, 1+ AI, mild to moderate global hypokinesis of LV and 2+ MR. 3. Hypertension, dyslipidemia: Currently blood pressure is low in 90s systolic. Continue IV fluid. Hold antihypertensive medications. 4. Severe malnutrition: BMI 22.2 kg/m? but patient has severe malnutrition. Patient has decreased muscle mass of extremities, bilateral chronic shoulder weakness, intercostal and costovertebral muscles, craniofacial muscle and loss of subcutaneous fat. Patient is currently DNR CC arrest with no intubation but is open to discussed with hospice nurse regarding benefits and risk and then will decide about hospice care. Visual Associate consult 5. CKD stage IIIa: Estimated creatinine clearance is 50 mL/min. Baseline creatinine is about 1.1-1.26. DVT prophylaxis: Eliquis 2.5 mg twice daily continued. Living will/advanced directive/end of life care: Patient does have living will or advanced directive. His is power of mergers and acquisitions attorney for health after discussion of benefits/risks procedures involved with full code, DNR CC arrest and DNR CC, the patient and his opted for DNR CC arrest with no intubation Patient doesn't want artificial life support including intubation, tube feed, ventilator and/chest compression, central venous catheter, vasopressor and DC shock if needed Total time spent in [id number] encounter in discussion of advanced directive 17 minutes. Microbiology Past 72 Hours 02/27/25 16:04 Stool Stool Lactoferrin - Final 02/27/25 16:04 Stool C. difficile GDH Antigen & Toxins - Final Toxigenic C. difficile 02/27/25 16:04 Stool Clostridioides difficile (PCR) - Final Laboratory Results 02/27/25 15:14: Sodium 136, Potassium 3.7, Chloride 103, Carbon Dioxide 19.7 L, Anion Gap 13, BUN 33 H, Creatinine 1.10, Estim Creat Clear Calc 50.95, Est GFR (MDRD) Non-Af 65, BUN/Creatinine Ratio 30.0 H, Glucose 98, Calcium 8.2, Magnesium Pending, Total Bilirubin 2.04 H, AST 27, ALT 22, Alkaline Phosphatase 243 H, [place] [address] H, Total Protein 5.5 L, Albumin 2.4 L, Globulin 3.2, Albumin/Globulin Ratio 0.7 L 02/27/25 16:06: Urine Color Yellow, Urine Clarity Clear, Urine pH 6.0, Ur Specific [place] 1.015, Urine Protein 15 H, Urine Glucose (UA) Normal, Urine Ketones Negative, Urine Occult Blood 10 H, Urine Nitrite Negative, Urine Bilirubin Negative, Urine Urobilinogen Normal, Ur Leukocyte Esterase 100 H, Urine RBC 0-5 SEEN, Urine WBC 5-10 SEEN, Ur Squamous Epith Cells 0-5 SEEN, Urine Bacteria 1+, Hyaline Casts 0-5 SEEN, Urine Mucus 1+ 02/27/25 16:10: WBC 11.8 H, RBC 3.57 L, Hgb 13.2, Hct 39.3 L, MCV 110.1 H, MCH 37.0 H, MCHC 33.6, RDW Std Deviation 66.2 H, RDW Coeff of [place] 16.1 H, Plt Count 160, MPV 11.2, Immature Gran % (Auto) 0.600, Neut % (Auto) 76.6 H, Lymph % (Auto) 6.5 L, Parke % (Auto) 15.2 H, Eos % (Auto) 0.2, Baso % (Auto) 0.9, Absolute Neuts (auto) 9.1 H, Absolute Lymphs (auto) 0.77 L, Nucleated RBC % 0 Clinical Impression(s) from Imaging Studies Abdomen/Pelvis CT 02/27/25 16:35 IMPRESSION: Diffusely thickened and inflamed colon likely reflective of pancolitis. No bowel obstruction. Mildly thickened urinary bladder wall which may reflect cystitis vs nondistention; consider correlation with urinalysis. Moderate pleural effusion within the right and mild pleural effusion within the left. Reading Location: [facility] Chest X-Ray 02/27/25 16:45
[2025-02-27] MEDS: 0.9% Normal Saline (500mL Bag) 500 ML 999 ML IV (18:15)
--- NOTE | 2025-02-27 19:21 | CASEMGMT ---
Social Work Face to face assessment was completed less than 30 days previously, no changes at this time. Daughter asked SW about cost of a squad to transport patient home as she was unsure if she would be able to get patient into a vehicle. SW reviewed what is typically covered and what potential cost could be, daughter was reassured that cost would be discussed before services being scheduled. SW also discussed hospice care with both daughter and . Daughter stated she was concerned about too many people coming into the home as she wants to avoid some one bringing illnesses into the home. SW did discuss the advantages of hospice and what services would be provided. Daughter stated if she felt that hospice could provide a service she could not, than they would consider it. No further needs at this time. Anais Bob, DOWEL PIN WORKER, TRANSITION ASSISTANT
[2025-02-27 19:24] LABS: Differential Comment SCANNED
[2025-02-27 19:25] LABS: Anisocytosis 1+; Polychromasia 1+
[2025-02-27 19:37] LABS: Magnesium 1.6 mg/dL (1.5-2.2)
[2025-02-27] MEDS: Lactated Ringers 1,000 ML 500 ML IV (20:27)
[2025-02-27] MEDS: 0.9% Saline Lock 10 ML Syringe IV ×2 (20:27→22:42)
[2025-02-27] MEDS: Vancomycin 125 MG/5 ML Susp PO.SYRINGE PO (20:29)
[2025-02-27] MEDS: Lactobacillis Acidophilus 1 CAP PO (20:29)
[2025-02-27] MEDS: APIXABAN 2.5 MG TABLET (WCH) PO (22:41)
[2025-02-27] MEDS: Lactated Ringers 1,000 ML 75 ML IV (22:41)
--- OUTSIDE RECORDS SUMMARY | 2025-02-27 23:11 | XMS RPT_ITS | CCD ---
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 Name Role Phone Allen, Saadia Unavailable Unavailable Allen, Saadia Unavailable Unavailable ELDERBROCK, TYRA Unavailable Unavailable ELDERBROCK, TYRA Unavailable Unavailable ELDERBROCK, TYRA Unavailable Unavailable ELDERBROCK, TYRA Unavailable Unavailable EDWARD, JAYRAM Unavailable Unavailable EDWARD, JAYRAM Unavailable Unavailable EDWARD, JAYRAM Unavailable Unavailable Ese MAURER, Francesca Alcaraz Unavailable Unavailable DeFinis, Harumi Y Unavailable Unavailable Tyra Munoz MD Primary Care Provider Tyra Munoz MD Primary Care Provider Tannhof NEURO OPHTHALMOLOGIST.JUNIOR MECHANICAL ENGINEER, Jody Unavailable Pacheco NEURO OPHTHALMOLOGIST.JUNIOR MECHANICAL ENGINEER, Yuniel Unavailable Tannhof NEURO OPHTHALMOLOGIST.JUNIOR MECHANICAL ENGINEER, Jody Unavailable Unavail able Tannhof NEURO OPHTHALMOLOGIST.JUNIOR MECHANICAL ENGINEER, Jody Unavailable Dr. Tyra Munoz MD Primary Care Provider Dr. Colin Lee MD Attending Provider Dr. Colin Lee MD Emergency Provider Dr. Bret Victoria DO Emergency Provider Dr. Ariela Luciano MD Admit Provider Dr. Ariela Luciano MD Referring Provider Dr. Ariela Luciano MD Other Provider Dr. Abundio Hurtado MD Attending Provider Unavaila leroy Watt MD, Dr. Villafana Attending Provider [phone] Abundio Hurtado MD Other Provider Unavailable Dr. Tyra Munoz MD Referring Provider Shante Camarillo Attending Provider Shante Camarillo Referring Provider Carlos LIANG, Dr. Mckeon Referring Provider Dr. Mike Gonzalez DO Emergency Provider Mustapha TREJO, Dr. Titus Attending Provider Keyana LIANG, Dr. Rae Attending Provider Keyana LIANG, Dr. Rae Other Provider Marvin TREJO, Dr. Felix Attending Provider STEFFEN JAQUEZ Attending Unavailable ELDERBROCK, TYRA D Primary Care Unavailable ELDERBROCK, TYRA D Referring Unavailable ELDERBROCK, TYRA D Referring Unavailable ELDERBROCK, TYRA D Primary Care Unavailable ELDERBROCK, TYRA D Primary Care Unavailable ELDERBROCK, TYRA D Attending Unavailable PODLOGHEATHER JORGE Attending Unavailable ELDERBROCK, TYRA D Primary Care Unavailable ELDERBROCK, TYRA D Attending Unavailable ELDERBROCK, TYRA D Primary Care Unavailable ELDERBROCK, TYRA D Primary Care Unavailable ELDERBROCK, TYRA D Attending Unavailable ELDERBROCK, TYRA D Primary Care Unavailable ELDERBROCK, TYRA D Referring Unavailable ELDERBROCK, TYRA D Primary Care Unavailable ELDERBROCK, TYRA D Attending Unavailable ELDERBROCK, TYRA D Referring Unavailable ELDERBROCK, TYRA D Primary Care Unavailable ELDERBROCK, TYRA D Attending Unavailable ELDERBROCK, TYRA D Primary Care Unavailable Colin Lee Attending Unavailable Elderbrock, Tyra Primary Care Unavailable Luciano, Ariela Consulting Unavailable Abundio Hurtado Attending Unavailable Luciano, Ariela Admitting Unavailable Luciano, Ariela Referring Unavailable Elderbrock, Tyra Primary Care Unavailable Mike Gonzalez Referring Unavailable Luciano, Ariela Consulting Unavailable Luciano, Ariela Admitting Unavailable Elderbrock, Tyra Primary Care Unavailable Tyra Ridley Attending Unavailable Abundio Hurtado Attending Unavailable Luciano, Ariela Consulting Unavailable Luciano, Ariela Admitting Unavailable Elderbrock, Tyra Primary Care Unavailable Luciano, Ariela Referring Unavailable Abundio Hurtado Consulting Unavailable Isidro Wong Attending Unavailable Elderbrock, Tyra Primary Care Unavailable Elderbrock, Tyra Referring Unavailable Shante Camarillo Attending Unavail able Elderbrock, Tyra Referring Unavailable Elderbrock, Tyra Primary Care Unavailable Luciano, Ariela Attending Unavailable Mike Gonzalez Referring Unavailable Tyra Munoz Primary Care Unavailable Tyra Ridley Attending Unavailable Ariela Luciano Consulting Unavailable Ariela Luciano Admitting Unavailable Tyra Ridley Consulting Unavailable Ariela Luciano Attending Unavailable Isidro Wong Attending Unavailable Benjaminradha, Tyra Referring Unavailable [facility] Tyra Primary Care Unavailable Broderick Watt Attending Unavailable Alexander, Tyra Primary Care Unavailable Shante Camarillo Referring Unavail able Shante Camarillo Attending Unavail able Tyra Munoz Primary Care Unavailable Sharad TREJO, Blair Referring Provider Blair Orourke MD Emergency Provider [phone] Mike TREJO, Dr. Traore Admit Provider Mike TREJO, Dr. Traore Attending Provider Allergies Allergy Classification Reported Allergen(s) Allergy Type Date of Onset Reaction(s) Facility (20 sources) Angiotensin Converting Enzyme (Sharon) Inhibitors; Translations: [SHARON INHIBITORS] drug allergy 4 Other: See Comments [facility] Work Phone: (1 source) OTHER; Translations: [OTHER] Propensity to adverse reactions (disorder) 3 [facility] Other [place] [facility] (3 sources) Sensitive To Vioxx [Other] Propensity to adverse reactions 3 [facility] Work Phone: (18 sources) rofecoxib; Translations: [ROFECOXIB] Drug Allergy 4 GI Upset [facility] Work Phone: Medications Current Medications Medication Drug Class(es) Dates Sig (Normalized) Sig (Original) allopurinol 300 mg oral tablet (20 sources) Xanthine Oxidase Inhibitor Start: 09-13-2017 End: 08-26-2024 take 1 tablet by mouth once daily Allopurinol 300 mg tablet Active 300 mg PO DAILY September 13, 2017 1:00am Start: 08-22-2013 take 1 tablet by armando th once daily ALLOPURINOL 300 MG TABS One tablet by mouth daily ALLOPURINOL [id number] Francesca Mulligan RN Comment on above: Take 1 tablet by armando th once daily. amoxicillin 500 mg oral tablet (20 sources) Penicillin-class Antibacterial Start: 10-18-2019 End: 11-14-2024 Amoxicillin 500 mg tablet Indications: S/P bilateral hip replacements Take 6 tablets one hour before the dentist and 2 tablets six hours afterward. 32 tablet 4 11/14/2024 Active Start: 09-13-2017 take 4 tablets by mo [facility] once daily as needed Amoxicillin 500 mg tablet Active 2000 mg PO DAILY as needed for DENTIST 0 September 13, 2017 1:00am Start: 08-21-2014 take 4 tablets by mo [facility] every hour AMOXICILLIN 500 MG TABS 4 tablets by mouth 1 hr prior to procedure AMOXICILLIN [id number] Jose Luis Hernandez MD Comment on above: Take 6 tablets one h our before the dentist and 2 tablets six hours afterward. apixaban 2.5 mg oral tablet (17 sources) Factor Xa Inhibitor Start: 12-07-2024 End: 12-27-2024 take 1 tablet by mouth every twelve hours ELIQUIS 2.5 mg tab(s) Take 1 tablet by mouth every 12 hours. 60 tablet 5 12/27/2024 Active Start: 12-07-2024 take 1 tablet by armando twice daily Apixaban (Eliquis) 2.5 mg tablet Active 2.5 mg PO TWICE A DAY 60 0 December 07, 2024 12:00am bimatoprost 0.1 mg/ml ophthalmic solution (20 sources) Prostaglandin Analog Start: 09-13-2017 take 0.01 drop(s) into the eye(s) at bedtime Bimatoprost (Lumigan) 0.01 % drops Active 1 NMA OPHTHALMIC AT BEDTIME September 13, 2017 1:00am 1 DROP IN BOTH EYES Start: 04-02-2017 take 1 drop(s) into the eye(s) once daily at bedtime bimatoprost (LUMIGAN) 0.01 % drop ophthalmic drops Use 1 Drop in both eyes daily at bedtime. 0 04/02/2017 Active Start: 04-02-2017 take 1 drop(s) into the eye(s) once daily at bedtime bimatoprost (LUMIGAN) 0.01 % drop ophthalmic drops Use 1 Drop in both eyes daily at bedtime. 0 04/02/2017 Active Start: 02-24-2017 LUMIGAN 0.01 % SOLN as directed BIMATOPROST [id number] Saadia Allen Start: 08-26-2016 LUMIGAN 0.01 % SOLN as directed BIMATOPROST [id number] Saadia Allen Start: 08-26-2016 LUMIGAN 0.01 % SOLN as directed BIMATOPROST [id number] Jose Luis Hernandez MD Comment on above: Use 1 Drop in both e yes daily at bedtime. brimonidine tartrate 2 mg/ml / brinzolamide 10 mg/ml ophthalmic suspension (20 sources) Carbonic Anhydrase Inhibitor, alpha-Adrenergic Agonist Start: 02-10-2019 take 1 drop(s) into the eye(s) twice daily brinzolamide-leidy monidine 1%-0.2 % Ophth Susp Use 1 Drop in both eyes two times a day. 02/10/2019 Active Start: 02-10-2019 Brinzolamide-B rimonidine (Simbrinza) 1-0.2 % drops,suspension Active 1 NMA OPHTHALMIC TWICE A DAY February 10, 2019 12:00am carvedilol 3.125 mg oral tablet (20 sources) alpha-Adrenergic Sung, beta-Adrenergic Sung Start: 09-13-2017 End: 08-26-2024 take 1 tablet by mouth twice daily Carvedilol (Coreg) 3.125 mg tablet Active 3.125 mg PO TWICE A DAY September 13, 2017 1:00am Start: 08-22-2013 take 1 tablet by armando th twice daily COREG 3.125 MG TABS One tablet by mouth twice daily CARVEDILOL [id number] Francesca Mulligan RN Comment on above: Take 1 tablet by armando th twice daily. Take 1 tablet by armando th two times a day. furosemide 40 mg oral tablet (20 sources) Loop Diuretic Start: 02-13-2025 take 1 tablet by mouth once daily furosemide (LASIX) 40 mg tablet Indications: Essential hypertension, benign , Stage 3 chronic kidney disease, unspecified whether stage 3a or 3b CKD (HCC) , Coronary artery disease involving [place] coronary artery of [place] heart without angina pectoris , Acute congestive heart failure, unspecified heart failure type (HCC) , Atrial fibrillation, unspecified type (HCC) Take 1 tablet by mouth once daily. 02/24/2025 Active Start: 01-27-2025 End: 02-13-2025 take 1 tablet by mouth twice daily in the morning, then take 1 tablet by mouth every four to six hours Furosemide (Lasix) 40 mg tablet Discontinued 40 mg PO TWICE A DAY January 27, 2025 4:10pm February 13, 2025 2:17pm one tablet in the AM and one tablet 4-6 hours later Start: 01-19-2025 End: 02-24-2025 take 1 tablet by mouth three times daily, then take 2 tablets by mouth in the morning, then take 1 tablet by mouth in the evening furosemide (LASIX) 40 mg tablet Indications: Essential hypertension, benign , Stage 3 chronic kidney disease, unspecified whether stage 3a or 3b CKD (HCC) , Coronary artery disease involving [place] coronary artery of [place] heart without angina pectoris , Acute congestive heart failure, unspecified heart failure type (HCC) , Atrial fibrillation, unspecified type (HCC) Take 1 tablet by mouth three times a day. Take 2 tablets in the am and 1 in the pm. 270 tablet 5 01/19/2025 02/24/2025 Discontinued (Adjust Sig - Block E-Cancel) Start: 12-27-2024 End: 03-27-2025 take 2 tablets by mouth once daily in the morning Furosemide 40 mg tablet Discontinued 80 mg PO EVERY MORNING January 27, 2025 4:02pm January 27, 2025 4:10pm Start: 12-07-2024 End: 01-27-2025 take 1 tablet by mouth once daily Furosemide (Lasix) 40 mg tablet Discontinued 40 mg PO DAILY 60 0 January 09, 2025 12:00am January 27, 2025 4:03pm take at 4pm Lactobacillus Acidophilus (Probacap) 10 billion cell capsule (1 source) Start: 02-27-2025 take 10 capsules by mouth once daily Lactobacillus Acidophilus (Probacap) 10 billion cell capsule Active 54116 NMA PO DAILY February 27, 2025 12:00am unsure of strength, Dr Munoz had them get otc multivitamin tablet (20 sources) take 1 tablet by mouth once daily multivitamin tablet Take 1 tablet by mouth once daily. Active take 1 tablet by mouth once nasim y multivitamin tablet Take 1 tablet by mouth once daily. 0 Active Comment on above: Take 1 tablet by armando th once daily. Du-Etv-Svkzi-K1-Lycopen -Lutein (Centrum Silver Men) 300-600-300 mcg tablet (7 sources) Start: 09-13-2017 Jo-Zcc-Ddifr-K1-Lycope n-Lutein (Centrum Silver Men) 300-600-300 mcg tablet Active 1 {tbl} PO DAILY 0 September 13, 2017 1:00am Start: 09-13-2017 Qv-Xdp-Ivrpg-K 0-Rwjgzbv-Zwcnvw (Centrum Silver Men) 300-600-300 mcg tablet Active 1 {tbl} PO DAILY September 13, 2017 1:00am nitroglycerin 0.4 mg sublingual tablet (20 sources) Nitrate Vasodilator Start: 05-05-2022 End: 11-14-2024 nitroglycerin sublingual (NITROSTAT) 0.4 mg SL tablet Indications: Coronary artery disease involving [place] coronary artery of [place] heart without angina pectoris Dissolve 1 tablet under the tongue as needed. DISSOLVE ON TONGUE FOR CHEST PAIN. IF NO PAIN RELIEF, CALL 911 25 tablet 1 11/14/2024 Active Start: 09-13-2017 Nitroglycerin 0.4 mg tablet, sublingual Active 0.4 mg SL every 5 to 15 minutes as needed for chest pain September 13, 2017 1:00am Start: 08-22-2013 NITROSTAT 0.4 MG SUBL 1 tablet under tongue every 5 min up to 3 X NITROGLYCERIN [id number] Saadia Allen Comment on above: Dissolve 1 tablet un cecilia the tongue as needed. DISSOLVE ON TONGUE FOR CHEST PAIN. IF NO PAIN RELIEF, CALL 911 microencapsulated potassium chloride 20 meq extended release oral tablet (20 sources) Start: take 1 tablet by mouth twice daily Potassium Chloride 20 mEq tablet,ER particles/crystals Active 20 meq PO TWICE A DAY February 27, 2025 12:00am Start: 02-24-2025 take 1 tablet by aramndo th once daily potassium chloride ER (KLOR-CON M20) 20 mEq tablet Take 1 tablet by mouth once daily. 02/24/2025 Active Start: 02-13-2025 End: 02-27-2025 take 1 tablet by mouth once daily Potassium Chloride (K-Tab) 20 mEq tablet extended release Discontinued 20 meq PO DAILY 1 0 February 13, 2025 12:00am February 27, 2025 3:35pm Start: 01-09-2025 End: 02-24-2025 take 1 tablet by mouth twice daily at mealtime Potassium Chloride 20 mEq Tablet,Er Particles/Crystals Discontinued 20 meq PO TWICE DAILY WITH MEALS 60 30 0 January 09, 2025 12:00am February 13, 2025 2:17pm pravastatin sodium 20 mg oral tablet (20 sources) HMG-CoA Reductase Inhibitor Start: 02-27-2025 take 1 tablet by mouth once daily Pravastatin 20 mg tablet Active 20 mg PO DAILY February 27, 2025 12:00am Start: 09-14-2017 End: 02-24-2025 take 1 tablet by mouth once daily Pravastatin 20 mg tablet Discontinued 20 mg PO DAILY September 14, 2017 1:00am February 15, 2025 3:34pm Start: 09-13-2017 End: 09-14-2017 take 1 tablet by mouth at bedtime Pravastatin 40 mg tablet Discontinued 40 mg PO AT BEDTIME September 13, 2017 1:00am September 14, 2017 3:10pm Start: 08-22-2013 take 1 tablet by armando th once daily PRAVASTATIN SODIUM 20 MG TABS One tablet by mouth daily PRAVASTATIN SODIUM [id number] Francesca Mulligan RN Comment on above: Take 1 tablet by armando th once daily. Completed/Discontinued Medications Medication Drug Class(es) Dates Sig (Normalized) Sig (Original) acetaminophen 325 mg oral tablet (4 sources) Start: 08-22-2013 TYLENOL 325 MG TABS as needed ACETAMINOPHEN [id number] Francesca Mulligan RN aspirin 81 mg oral tablet (20 sources) Platelet Aggregation Inhibitor, Nonsteroidal Anti-inflammatory Drug Start: 01-06-2025 End: 02-09-2025 take 1 tablet by mouth once daily Aspirin 81 mg tablet Discontinued 81 mg PO daily January 06, 2025 12:00am February 09, 2025 12:05pm Start: 09-13-2017 End: 12-07-2024 take 1 tablet by mouth once daily Aspirin 81 mg tablet,delayed release (DR/EC) Discontinued 81 mg PO DAILY September 13, 2017 1:00am December 07, 2024 4:02pm Start: 08-22-2013 End: 12-27-2024 take 1 tablet by mouth once daily ASPIRIN 81 MG TABS One tablet by mouth daily ASPIRIN [id number] Francesca Mulligan RN Start: 08-22-2013 take 1 tablet by armando th once daily ADULT ASPIRIN EC LOW STRENGTH 81 MG TBEC One tablet by mouth daily ASPIRIN [id number] Bria Lazo Mamadou Start: 08-22-2013 take 1 tablet by armando th once daily ASPIRIN EC 81 MG TBEC One tablet by mouth daily ASPIRIN [id number] Bria Lazo Mahinshannen Comment on above: Take 81 mg by mouth once daily. brimonidine tartrate 2 mg/ml ophthalmic solution (7 sources) alpha-Adrenergic Agonist Start: 03-25-20 18 End: 02-11-20 19 Brimonidine 0.2 % drops Discontinued 1 NMA OPHTHALMIC TWICE A DAY March 25, 2018 12:00am February 10, 2019 3:12pm brimonidine tartrate 2 mg/ml / timolol 5 mg/ml ophthalmic solution (1 source) alpha-Adrenergic Agonist, beta-Adrenergic Sung Start: 04-02-20 End: 11-04-19 23 Brimonidine-Timolol 0.2-0.5 % drop Use 1 Drop in both eyes twice daily. 0 04/02/2017 11/03/2022 Discontinued Comment on above: Use 1 Drop in both e yes twice daily. ciprofloxacin 500 mg oral tablet (3 sources) Quinolone Antimicrobial Start: 02-14-20 25 End: 02-28-20 25 take 1 tablet by mouth twice daily in the evening Ciprofloxacin Hcl 500 mg Tablet Discontinued 500 mg PO TWICE A DAY 7 0 February 13, 2025 12:00am February 27, 2025 3:43pm Start in the evening of 02/13/2025 latanoprost 0.05 mg/ml ophthalmic solution (8 sources) Prostaglandin Analog Start: 08-22-19 14 End: 08-26-19 17 LATANOPROST 0.005 % SOLN eye gtts as directed LATANOPROST [id number] Jose Luis Hernandez MD lutein 20 mg oral capsule (20 sources) Start: 09-14-19 18 End: 12-08-19 25 take 1 capsule by mouth once daily Lutein 20 mg capsule Discontinued 20 mg PO daily September 14, 2017 1:00am December 07, 2024 1:53pm Start: 04-02-2017 take 1 tablet by armando th once daily Lutein 10 mg tablet Active 10 mg PO DAILY December 07, 2024 12:00am give with meal/snack Start: 02-24-2017 take 1 tablet by armando th once daily LUTEIN TABS One tablet by mouth daily LUTEIN TABS [id number] Saadia Allen Comment on above: Take 10 mg by mouth once daily. MULTIPLE VITAMINS-MINERALS (2 sources) Start: 08-26-2016 take 1 tablet by mouth once daily CENTRUM SILVER TABS One tablet by mouth daily MULTIPLE VITAMINS-MINERALS [id number] Jose Luis Hernandez MD MULTIPLE VITAMINS-MINERALS (2 sources) Start: 08-26-2016 take 1 tablet by mouth once daily CENTRUM SILVER TABS One tablet by mouth daily MULTIPLE VITAMINS-MINERALS [id number] Jose Luis Hernandez MD 24 hr niacin 500 mg extended release oral tablet (20 sources) Nicotinic Acid Start: 09-13-2017 End: 02-15-2025 take 1 tablet by mouth every twenty-four hours at bedtime Niacin (Niaspan Extended-Release) 500 mg tablet extended release 24 hr Discontinued 500 mg PO AT BEDTIME September 13, 2017 1:00am February 15, 2025 3:34pm Start: 09-02-2013 End: 02-24-2025 take 1 tablet by mouth once daily at bedtime niacin sustained release 500 mg tablet Indications: Other and unspecified hyperlipidemia Take 1 tablet by mouth daily at bedtime. 30 tablet 11 09/02/2013 02/24/2025 Discontinued (Discontinued by another Health Care Provider) Start: 08-22-2013 take 1 tablet by armando th once daily at bedtime NIASPAN 500 MG CR-TABS One tablet by mouth daily at bedtime NIACIN (ANTIHYPERLIPIDEMIC) [id number] Francesca Mulligan RN Start: 08-22-2013 take 1 tablet by armando th once daily at bedtime NIASPAN 500 MG CR-TABS One tablet by mouth daily at bedtime NIACIN (ANTIHYPERLIPIDEMIC) [id number] Francesca Mulligan RN Comment on above: Take 1 tablet by armando th daily at bedtime. phenazopyridine hydrochloride 100 mg oral tablet (3 sources) Start: 02-14-20 End: 02-28-20 take 1 tablet by mouth three times daily Phenazopyridine (Pyridium) 100 mg tablet Discontinued 100 mg PO THREE TIMES A DAY 9 February 13, 2025 12:00am February 27, 2025 3:43pm predniSONE 10 mg oral tablet (12 sources) Start: 08-26-19 PREDNISONE 10 MG TABS Take as directed as needed PREDNISONE [id number] Jose Luis Hernandez MD Start: 08-22-2013 End: 08-21-2015 take 1 tablet by mouth once daily as needed PREDNISONE 10 MG TABS One tablet by mouth daily as needed for gout PREDNISONE [id number] Jose Luis Hernandez MD sildenafil 100 mg oral tablet (8 sources) Phosphodiesterase 5 Inhibitor Start: 08-22-2013 End: 08-25-2013 take 1 tablet by mouth once daily as needed VIAGRA 100 MG TABS One tablet by mouth daily as needed SILDENAFIL CITRATE [id number] Jose Luis Hernandez MD triamcinolone acetonide 0.25 mg/ml topical cream (20 sources) Corticosteroid Start: 01-27-2025 End: 02-27-2025 Triamcinolone Acetonide 0.025 % cream Discontinued 1 NMA TOPICAL TWICE A DAY January 27, 2025 12:00am February 27, 2025 3:44pm Start: 10-23-2021 End: 01-24-2025 triamcinolone (KENALOG) 0.02 5 % cream Apply to affected area two times a day. Right ear. 30 g 2 01/24/2025 Active Comment on above: Apply to affected ar ea twice daily. Right ear. vitamin b12 0.5 mg oral lozenge (14 sources) Vitamin B12 Start: 09-13-2017 End: 12-07-2024 take 500 ug by mouth once daily Cyanocobalamin (Vitamin B-12) (Vitamin B-12) 500 mcg lozenge Discontinued 500 ug PO daily September 13, 2017 1:00am December 07, 2024 1:54pm Start: 08-26-2016 End: 05-14-2023 cyanocobalamin (VITAMIN B-12 ) 500 mcg tab tab(s) Take by mouth once daily. 0 08/26/2016 05/14/2023 Discontinued Comment on above: Take by mouth once d aily. 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] Onset: 4 08-22-2013 Chronic Cardiac dysrhythmias (20 sources) Atrial fibrillation; Translations: [Unspecified atrial fibrillation] Onset: 5 12-27-2024 Chronic Chronic kidney disease (20 sources) Chronic kidney disease stage 3; Translations: [Stage 3 chronic kidney disease, unspecified whether stage 3a or 3b CKD (HCC)] Onset: 7 Resolved: 9 Chronic Chronic kidney disease (2 sources) Chronic kidney disease; Translations: [Stage 3 chronic kidney disease, unspecified whether stage 3a or 3b CKD (HCC)] Onset: 9 Chronic ulcer of skin (1 source) Skin ulcer; Translations: [Non-pressure chronic ulcer of skin of other sites limited to breakdown of skin] 02-03-2025 Chronic Congestive heart failure; nonhypertensive (20 sources) Acute congestive heart failure; Translations: [Heart failure, unspecified] Onset: 5 12-27-2024 Chronic Coronary atherosclerosis and other heart disease (20 sources) Old myocardial infarction; Translations: [Atherosclerotic heart disease of [place] coronary artery without angina pectoris] Onset: 1 08-26-2016 Chronic Comment on above: BMS x 2 Prox-Mid RCA . 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 gout, unspecified site] Onset: 1 Chronic Hypertension with complications and secondary hypertension (1 source) Hypertensive heart and chronic kidney disease with heart failure and stage 1 through stage 4 chronic kidney disease, or unspecified chronic kidney disease; Translations: [Hypertensive heart and chronic kidney disease with heart failure and stage 1 through stage 4 chronic kidney disease, or unspecified chronic kidney disease] Onset: 5 Chronic Malaise and fatigue (8 sources) Physical deconditioning; Translations: [Other malaise] Onset: 5 11-14-2024 Episodic Nutritional deficiencies (3 sources) Undernutrition; Translations: [Unspecified protein-calorie malnutrition] 02-15-2025 Chronic Osteoarthritis (20 sources) Osteoarthritis; Translations: [Unspecified osteoarthritis, unspecified site] Onset: 5 Resolved: 7 Chronic Other aftercare (1 source) Post-discharge follow-up; Translations: [Encounter for follow-up examination after completed treatment for conditions other than malignant neoplasm] 12-27-2024 Episodic Other aftercare (1 source) Encounter for follow-up examination after completed treatment for conditions other than malignant neoplasm; Translations: [Hospital discharge follow-up] Onset: 5 Episodic Other connective tissue disease (2 sources) History of repair of hip joint; Translations: [Presence of artificial hip joint, bilateral] Chronic Other diseases of bladder and urethra (1 source) Other specified disorders of bladder; Translations: [Other specified disorders of bladder] Onset: 8 Chronic Other diseases of bladder and urethra (20 sources) Mass of urinary bladder; Translations: [Other specified disorders of bladder] Onset: 8 05-17-2018 Chronic Other diseases of kidney and ureters (8 sources) Acute renal insufficiency; Translations: [Disorder of kidney and ureter, unspecified] 12-27-2024 Episodic Other diseases of kidney and ureters (1 source) Disorder of kidney and ureter, unspecified; Translations: [Acute renal insufficiency] Onset: 5 Episodic Other gastrointestinal disorders (4 sources) Diarrhea; Translations: [Diarrhea, unspecified] 05-14-2023 Episodic Other lower respiratory disease (3 sources) Dyspnea; Translations: [Shortness of breath] 12-07-2024 Episodic Other lower respiratory disease (14 sources) Hypoxia; Translations: [Hypoxemia] 01-06-2025 Episodic Other lower respiratory disease (1 source) Shortness of breath; Translations: [SOB (shortness of breath)] Onset: Episodic Other lower respiratory disease (1 source) Hypoxemia; Translations: [Hypoxemia] Onset: Episodic Other nervous system disorders (4 sources) Abnormal gait; Translations: [Unspecified abnormalities of gait and mobility] 11-14-2024 Episodic Other nervous system disorders (1 source) Unspecified abnormalities of gait and mobility; Translations: [Gait abnormality] Onset: Episodic Other nutritional; endocrine; and metabolic disorders (2 sources) Weight increased; Translations: [Abnormal weight gain] 12-07-2024 Episodic Other nutritional; endocrine; and metabolic disorders (1 source) Abnormal weight gain; Translations: [Weight gain] Onset: Episodic Other nutritional; endocrine; and metabolic disorders (1 source) Loss of appetite; Translations: [Anorexia] 02-24-2025 Episodic Other screening for suspected conditions (not mental disorders or infectious disease) (16 sources) Electrocardiogram abnormal; Translations: [Abnormal electrocardiogram [ECG] [EKG]] Onset: 5 12-07-2024 Episodic Residual codes; unclassified (3 sources) Bilateral lower limb edema; Translations: [Localized edema] 12-07-2024 Episodic Residual codes; unclassified (1 source) Localized edema; Translations: [Bilateral leg edema] Onset: Episodic Residual codes; unclassified (1 source) Edema, unspecified; Translations: [Edema, unspecified] Onset: Episodic Screening and history of mental health and substance abuse codes (2 sources) Patient encounter status; Translations: [Encounter for screening for depression] 05-16-2024 Episodic Unclassified (2 sources) Placement of stent in coronary artery ; Translations: [Presence of coronary angioplasty implant and graft] Onset: 08-26-2016 Unclassified (1 source) Long-term drug therapy; Translations: [Other nursing home (current) drug therapy] Onset: 7 02-24-2017 Unclassified (20 sources) ASA CLASS II Onset: 3 12-11-2003 Unclassified (7 sources) call for appt Unclassified (3 sources) In 2 weeks Urinary tract infections (9 sources) Urinary tract infectious disease; Translations: [Urinary tract infection, site not specified] Onset: 5 02-09-2025 Episodic Past or Other Problems Problem Classification Problem Date Documented Da te Episodic/Chronic Cancer of bladder (18 sources) Malignant tumor of urinary bladder; Translations: [Malignant neoplasm of bladder, unspecified] Onset: 05-14-2023 Resolved: 11-12-2023 05-14-2023 Chronic Diabetes mellitus without complication (4 sources) Increased glucose level; Translations: [Other abnormal glucose] Onset: 11-02-2024 05-14-2023 Episodic Genitourinary symptoms and ill-defined conditions (20 sources) Gross hematuria; Translations: [Aj hematuria] Onset: 05-17-2018 05-17-2018 Episodic Other aftercare (2 sources) Other nursing home (current) drug therapy; Translations: [Other nursing home (current) drug therapy] Onset: 02-24-2017 02-24-2017 Episodic Other nutritional; endocrine; and metabolic disorders (16 sources) Obesity; Translations: [Obesity, unspecified] Onset: 05-27-2005 Resolved: 09-02-2011 09-02-2011 Chronic Unclassified (2 sources) Percutaneous transluminal coronary angioplasty ; Translations: [Coronary angioplasty status] Onset: 08-22-2013 08-22-2013 Results Test Name Value Interpretation Reference Range Facility Absolute lymphocyte countOrd ered By: Blair Orourke on 02-27-2025 Lymphocytes Auto (Unsp spec) [#/Vol] 0.77 10*3/uL Low 0.83-4.51 [facility] Absolute neutrophil countOrd ered By: Blair Orourke on 02-27-2025 Neutrophils (Bld) [#/Vol] 9.1 10*3/uL High 2.0-7.7 [facility] Anion gap in Serum or Plasma Ordered By: Blair Orourke on 02-27-2025 Anion gap [Moles/Vol] 13 mmol/L 5-15 [facility] Automated lymphocyte count a s percentage of total leukocytesOrdered By: Blair Orourke on 02-27-2025 Lymphocytes/100 WBC Auto (Unsp spec) 6.5 % Low 19-41 [facility] BUN/creatinine ratioOrdered By: Blair Orourke on 02-27-2025 Urea nitrogen/Creatinine [Mass ratio] 30.0 mg/mg High 10-20 [facility] Basophil percentageOrdered B y: Blair Orourke on 02-27-2025 Basophils/100 WBC (Bld) 0.9 % 0-1 [facility] Bilirubin Test strip Ql (U)O rdered By: Blair Orourke on 02-27-2025 Bilirubin Ql (U) Negative Negative [facility] Bilirubin, totalOrdered By: Blair Orourke on 02-27-2025 Bilirubin [Mass/Vol] 2.04 mg/dL High 0.00-1.[address] [facility] Carbon dioxide, total [Moles /volume] in Central venous bloodOrdered By: Blair Orourke on 02-27-2025 CO2 [Moles/Vol] 19.7 mmol/L Low 21.0-32.0 [facility] Chloride assayOrdered By: Sreekanth Orourke on 02-27-2025 Chloride [Moles/Vol] 103 mmol/L 98-[address] [facility] Clostridium difficile detect ion by polymerase chain reactionOrdered By: Blair Orourke on 02-27-2025 C. difficile DNA JACQUIE+probe Ql (Unsp spec) [facility] Eosinophil percentageOrdered By: Blair Orourke on 02-27-2025 Eosinophils/100 WBC (Bld) 0.2 % 0-5 [facility] Erythrocyte distribution wid th ratioOrdered By: Blair Orourke on 02-27-2025 Erythrocyte distribution width (RBC) [Ratio] 16.1 % High 11.6-14.6 [facility] Erythrocyte distribution wid th standard deviationOrdered By: Blair Orourke on 02-27-2025 Erythrocyte distribution width (RBC) [Ratio] 66.2 fl High 35.1-43.9 [facility] Glomerular filtration rate ( GFR) estimation/1.73 sq m using serum, plasma, or whole bOrdered By: Blair Orourke on 02-27-2025 GFR/1.73 sq M.predicted among non-blacks MDRD (S/P/Bld) [Vol rate/Area] 65 mL/min/{1.73_m2} >60 [facility] Comment on above: mL/min/1.73m2 CKD-EP I Creatinine Equation (2020) Hematocrit Auto (Bld) [Volum e fraction]Ordered By: Blair Orourke on 02-27-2025 Hematocrit (Bld) [Volume fraction] 39.3 % Low 40-54 [facility] Hemoglobin measurementOrdere d By: Blair Orourke on 02-27-2025 Hemoglobin (Bld) [Mass/Vol] 13.2 g/dL 13.0-16.5 [facility] Hyaline casts LM.LPF (Urine sed) [#/Area]Ordered By: Blair Orourke on 02-27-2025 Hyaline casts (Urine sed) [#/Area] 0 /[LPF] 0-5 [facility] Immature granulocytes/100 WB C Auto (Bld)Ordered By: Blair Orourke on 02-27-2025 Immature granulocytes/100 WBC (Bld) 0.600 % 0.0-0.9 [facility] Comment on above: IG% - Immature Granu locytes (promyelocytes, myelocytes and metamyelocytes) > 1% indicates that a LEFT SHIFT is Present. Ketones Test strip Ql (U)Ord ered By: Blair Orourke on 02-27-2025 Ketones Ql (U) Negative Negative [facility] Laboratory - Chemistry and C hemistry - challengeOrdered By: Blair Orourke on 02-27-2025 AST [Catalytic activity/Vol] 27 U/L <38 [facility] MCV (mean corpuscular volume ) determinationOrdered By: Blair Orourke on 02-27-2025 MCV (RBC) [Entitic vol] 110.1 fL High 80-94 [facility] Mean corpuscular hemoglobin (MCH) determinationOrdered By: Blair Orourke on 02-27-2025 MCH (RBC) [Entitic mass] 37.0 pg High 27.0-32.0 [facility] Mean corpuscular hemoglobin concentration (MCHC) determinationOrdered By: Blair Orourke on 02-27-2025 MCHC (RBC) [Mass/Vol] 33.6 g/dL 32-36 [facility] Mean platelet volume determi nationOrdered By: Blair Orourke on 02-27-2025 Platelet mean volume (Bld) [Entitic vol] 11.2 fL 6.2-12.0 [facility] Microscopic analysis of urin e for red blood cells (RBC)Ordered By: Blair Orourke on 02-27-2025 Microscopic analysis of urine for red blood cells (RBC) 0-5 SEEN /hpf 0-5 [facility] Monocyte percentageOrdered B y: Blair Orourke on 02-27-2025 Monocytes/100 WBC (Bld) 15.2 % High 0-10 [facility] Mucus LM Ql (Urine sed)Order ed By: Blair Orourke on 02-27-2025 Mucus Ql (Urine sed) 1+ /hpf [facility] Natriuretic peptide.B prohor kaylie N-Terminal [Mass/volume] in Serum or PlasmaOrdered By: Blair Orourke on 02-27-2025 Natriuretic peptide.B prohormone N-Terminal [Mass/Vol] 69049 pg/mL High <1800 [facility] Comment on above: Heart Failure Unlike ly: < 300 pg/mLHeart Failure Likely< 50 Years: > 450 pg/mL50-75 Years: > 900 pg/mL>75 Years: > 1800 pg/mL Neutrophil percentageOrdered By: Blair Orourke on 02-27-2025 Neutrophils/100 WBC (Bld) 76.6 % High 47-70 [facility] Nitrite Test strip Ql (U)Ord ered By: Blair Orourke on 02-27-2025 Nitrite Ql (U) Negative Negative [facility] Nucleated red blood cell per centageOrdered By: Blair Orourke on 02-27-2025 Nucleated RBC/100 WBC (Bld) [Ratio] 0 % 0-5 [facility] Platelet countOrdered By: Sreekanth Orourke on 02-27-2025 Platelets (Bld) [#/Vol] 160 10*3/uL 150-450 [facility] Potassium measurement (mass/ volume)Ordered By: Blair Orourke on 02-27-2025 Potassium (Unsp spec) [Mass/Vol] 3.7 mmol/L 3.3-5.1 [facility] Comment on above: Hemolysis present, R esults could be affected. Protein Test strip Ql (U)Ord ered By: Blair Orourke on 02-27-2025 Protein Ql (U) 15 mg/dl High Negative [facility] RBC Auto (Bld) [#/Vol]Ordere d By: Blair Orourke on 02-27-2025 RBC (Bld) [#/Vol] 3.57 10*6/uL Low 4.6-6.2 [facility] Serum creatinine measurement (mass/volume)Ordered By: Blair Orourke on 02-27-2025 Creatinine [Mass/Vol] 1.10 mg/dL 0.70-1.20 [facility] Serum globulin measurementOr dered By: Blair Orourke on 02-27-2025 Globulin (S) [Mass/Vol] 3.2 g/dL 2.2-4.2 [facility] Serum glucose measurement (m ass/volume)Ordered By: Blair Orourke on 02-27-2025 Glucose [Mass/Vol] 98 mg/dL 70-99 [facility] Serum or plasma alanine gan otransferase (ALT) measurementOrdered By: Blair Orourke on 02-27-2025 ALT [Catalytic activity/Vol] 22 U/L <47 [facility] Serum or plasma albumin shayy urement (mass/volume)Ordered By: Blair Orourke on 02-27-2025 Albumin [Mass/Vol] 2.4 g/dL Low 3.4-4.8 [facility] Serum or plasma albumin/glob ulin mass ratioOrdered By: Blair Orourke on 02-27-2025 Albumin/Globulin [Mass ratio] 0.7 {ratio} Low 0.9-2.4 [facility] Serum or plasma alkaline suze sphatase measurementOrdered By: Blair Orourke on 02-27-2025 ALP [Catalytic activity/Vol] 243 U/L High 40-129 [facility] Serum or plasma calcium shayy urement (mass/volume)Ordered By: Blair Orourke on 02-27-2025 Calcium [Mass/Vol] 8.2 mg/dL 7.6-11.0 [facility] Serum or plasma urea nitroge n measurement (mass/volume)Ordered By: Blair Orourke on 02-27-2025 Urea nitrogen [Mass/Vol] 33 mg/dL High 4-19 [facility] Sodium levelOrdered By: Blair Orourke on 02-27-2025 Sodium [Moles/Vol] 136 mmol/L 133-145 [facility] Squamous epithelial cells de tection in urine sediment by light microscopyOrdered By: Blair Orourke on 02-27-2025 Epithelial cells.squamous LM Ql (Urine sed) 0-5 SEEN /hpf 0-5 [facility] Stool lactoferrin detection by immunoassayOrdered By: Blair Orourke on 02-27-2025 Lactoferrin IA Ql (Stl) [facility] Total proteinOrdered By: Flor Orourke on 02-27-2025 Protein [Mass/Vol] 5.5 g/dL Low 5.9-8.4 [facility] Urine clarityOrdered By: Flor Orourke on 02-27-2025 Clarity (U) Clear Clear [facility] Urine color determinationOrd ered By: Blair Orourke on 02-27-2025 Color (U) Yellow Yellow [facility] Urine glucose detectionOrder ed By: Blair Orourke on 02-27-2025 Glucose Ql (U) Normal mg/dl Normal [facility] Urine leukocyte esterase det ection by dipstickOrdered By: Blair Orourke on 02-27-2025 Leukocyte esterase Test strip Ql (U) 100 /ul High Negative [facility] Urine pHOrdered By: Blair álvarez on 02-27-2025 pH (U) 6.0 [pH] 5.0 - 8.0 [facility] Urine sediment bacteria coun t by microscopy (number/high power field)Ordered By: Blair Orourke on 02-27-2025 Bacteria LM.HPF (Urine sed) [#/Area] 1 /[HPF] None Seen [facility] Urine specific gravity measu rementOrdered By: Blair Orourke on 02-27-2025 Specific gravity (U) [Rel density] 1.015 1.002-1.[address] [facility] Urine urobilinogen measureme ntOrdered By: Blair Orourke on 02-27-2025 Urobilinogen Ql (U) Normal mg/dl Normal [facility] White blood cell (WBC) count Ordered By: Blair Orourke on 02-27-2025 WBC (Bld) [#/Vol] 11.8 10*3/uL High 4.4-11.0 [facility] White blood cell countOrdere d By: Blair Orourke on 02-27-2025 White blood cell count 5-10 SEEN /hpf 0-5 [facility] CNPNon 02-20-2025 [facility] ([id number]) 1935 M T Date Time Provider Department 02/20/25 TYRA MUNOZ [facility] During your visit today, we recorded the following information about you: Marilin Olsen MA 02/20/2025 1:21 PM Signed Spoke with pt daughter, notified her that Yuniel Bergman recommended he add calorie dense shakes like Ensure or Newton [employer] shakes to help with weight gain. Advised daughter that she can discuss further at his appt on Thursday, she stated that that is too far away and she is trying to do everything she can so that pt doesn't have to have a feeding tube placed. She wants Yuniel or another provider to review pt medication and see if he is currently taking anything that would cause his appetite to be suppressed. Wants a call back TODAY. CATA Clay Jesse, APRN.STACY 02/20/2025 1:42 PM Signed I reviewed his medications. None have appetite suppression as a side effect. Yuniel Bergman APRN.Marilin Mason MA 02/20/2025 1:45 PM Signed Pt daughter Susan notified. Marilin Olsen MA Allergies As of Date: 02/20/2025 Noted Allergy Reaction SHARON INHIBITORS 08/22/2013 14 - Other: See Comments Comments: Severe hypotension VIOXX (ROFECOXIB) 11/12/2023 8 - GI Upset Date Reviewed: 02/03/2025 Reviewed by: Marilin Olsen MA - Fully Assessed Prescriptions as of 02/20/2025 - potassium chloride ER (KLOR-CON M20) 20 mEq tablet Take 1 tablet by mouth two times a day. - triamcinolone (KENALOG) 0.025 % cream Apply to affected area two times a day. Right ear. - furosemide (LASIX) 40 mg tablet Take 1 tablet by mouth three times a day. Take 2 tablets in the am and 1 in the pm. - ELIQUIS 2.5 mg tab(s) Take 1 tablet by mouth every 12 hours. - nitroglycerin sublingual (NITROSTAT) 0.4 mg SL tablet Dissolve 1 tablet under the tongue as needed. DISSOLVE ON TONGUE FOR CHEST PAIN. IF NO PAIN RELIEF, CALL 911 - Amoxicillin 500 mg tablet Take 6 tablets one hour before the dentist and 2 tablets six hours afterward. - allopurinol (ZYLOPRIM) 300 mg tablet Take 1 tablet by mouth once daily. - pravastatin (PRAVACHOL) 20 mg tablet Take 1 tablet by mouth once daily. - carvedilol (COREG) 3.125 mg tablet Take 1 tablet by mouth two times a day. - brinzolamide-brimonidine 1%-0.2 % Ophth Susp Use 1 Drop in both eyes two times a day. - bimatoprost (LUMIGAN) 0.01 % drop ophthalmic drops Use 1 Drop in both eyes daily at bedtime. - Lutein 10 mg tab Take 10 mg by mouth once daily. - multivitamin tablet Take 1 tablet by mouth once daily. - niacin sustained release 500 mg tablet Take 1 tablet by mouth daily at bedtime. Meds Comments as of 05/14/2023: Prednisone 10 mg whenever has a gout flare up. On another eye drop. Problem List As Of Date 02/20/2025 Noted Resolved ASA CLASS II [1001] 02/28/2003 Obesity, unspecified [E66.9] 05/27/2005 09/02/2011 GENERAL OSTEOARTHROSIS [M15.9] 05/27/2005 11/19/2006 BENIGN HYPERTENSION [I10] 05/27/2005 CHRONIC KIDNEY DISEASE, STAGE I [N18.1] 11/19/2006 11/21/2008 OSTEOARTHROS NOS-UNSPEC [M19.90] 11/19/2006 CHRONIC KIDNEY DISEASE, STAGE III (MOD) [N18.30]11/21/2008 CAD (coronary artery disease) [I25.10] 08/30/2010 Gout [M10.9] 10/11/2010 Pure hypercholesterolemia [E78.00] 09/02/2011 Bladder mass [N32.89] 05/17/2018 Gross hematuria [R31.0] 05/17/2018 Malignant neoplasm of urinary bladder, unspecif*05/14/2023 11/12/2023 Encounter Status:Closed by MARILIN OLSEN on [facility]/20/[facility] ([id number]) 1935 M [facility] Date Time Provider Department 02/15/[facility] During your visit today, we recorded the following information about you: Leola Pollock, RN 02/15/2025 5:00 PM Signed Daughter Susan, jose d pt just saw hydroelectric mechanic, Dr. Wong. Dr. Wong advised pt needed to call pcp and ask pcp to prescribe appetite stimulate. Dr. Wong also took patient off 2 meds, but daughter cannot remember right now what they are and paperwork is not in front of her. Reports pt is not hungry for the first time in his life. Reports pt gained 40# and was in the hospital then lost 50 # from them taking the water off. Daughter aware pcp out of office and Director Of Catering [employer] will return on Thursday. Asking if [facility] doctor can order something to increase pt's appetite. DDLeola Gutiérrez. Asking office to phone her with reply. Advised pt does not have anyone listed on chart we are permitted to call except him and will need to give office permission to give daughter medical information due to HIPAA. Daughter verbalized understanding. Pritesh Osborn MD 02/16/2025 8:47 AM Signed Please obtain records from cardiology and would recommend OV to discuss concerns with weight loss and medication options to help with weight gain. Marilin Olsen MA 02/16/2025 10:06 AM Signed Pt scheduled 02/24/25 for hospital follow up with PCP. CATA Clay Beth, LPN 02/20/2025 9:47 AM Signed Patient daughter Susan calling not happy that she did not receive call back with these notes below. Daughter said it is difficult to get father to the office for a visit. She was hoping to just get a phone call with a medication change? Something to help with increasing his appetite? Aware PCP is out of the office and sending note to IT TECHNICAL ARCHITECT to review. Please advise Yuniel Bergman APRN.STACY 02/20/2025 12:24 PM Signed I would encourage the patient to follow up with PCP as scheduled to discuss. For the time being, they can try to add calorie dense shakes like Ensure or Newton breakfast shakes to help with weight gain. Yuniel Bergman APRN.Marilin Mason MA 02/20/2025 1:07 PM Signed Spoke with pt daughter. He has started eating more ice cream, some clam chowder soup. Cardio suggested drinking beer to stimulate appetite. He had been given Ensure and Newton breakfast in the hospital and those were not very good. Advised we would discuss further at his appointment. Marilin Olsen MA Allergies As of Date: 02/15/2025 Noted Allergy Reaction SHARON INHIBITORS 08/22/2013 14 - Other: See Comments Comments: Severe hypotension VIOXX (ROFECOXIB) 11/12/2023 8 - GI Upset Date Reviewed: 02/03/2025 Reviewed by: Marilin Olsen MA - Fully Assessed Reason for Visit: Medication request for appetite [Other] Prescriptions as of 02/20/2025 - potassium chloride ER (KLOR-CON M20) 20 mEq tablet Take 1 tablet by mouth two times a day. - triamcinolone (KENALOG) 0.025 % cream Apply to affected area two times a day. Right ear. - furosemide (LASIX) 40 mg tablet Take 1 tablet by mouth three times a day. Take 2 tablets in the am and 1 in the pm. - ELIQUIS 2.5 mg tab(s) Take 1 tablet by mouth every 12 hours. - nitroglycerin sublingual (NITROSTAT) 0.4 mg SL tablet Dissolve 1 tablet under the tongue as needed. DISSOLVE ON TONGUE FOR CHEST PAIN. IF NO PAIN RELIEF, CALL 911 - Amoxicillin 500 mg tablet Take 6 tablets one hour before the dentist and 2 tablets six hours afterward. - allopurinol (ZYLOPRIM) 300 mg tablet Take 1 tablet by mouth once daily. - pravastatin (PRAVACHOL) 20 mg tablet Take 1 tablet by mouth once daily. - carvedilol (COREG) 3.125 mg tablet Take 1 tablet by mouth two times a day. - brinzolamide-brimonidine 1%-0.2 % Ophth Susp Use 1 Drop in both eyes two times a day. - bimatoprost (LUMIGAN) 0.01 % drop ophthalmic drops Use 1 Drop in both eyes daily at bedtime. - Lutein 10 mg tab Take 10 mg by mouth once daily. - multivitamin tablet Take 1 tablet by mouth once daily. - niacin sustained release 500 mg tablet Take 1 tablet by mouth daily at bedtime. Meds Comments as of 05/14/2023: Prednisone 10 mg whenever has a gout flare up. On another eye drop. Problem List As Of Date 02/15/2025 Noted Resolved ASA CLASS II [1001] 02/28/2003 Obesity, unspecified [E66.9] 05/27/2005 09/02/2011 GENERAL OSTEOARTHROSIS [M15.9] 05/27/2005 11/19/2006 BENIGN HYPERTENSION [I10] 05/27/2005 CHRONIC KIDNEY DISEASE, STAGE I [N18.1] 11/19/2006 11/21/2008 OSTEOARTHROS NOS-UNSPEC [M19.90] 11/19/2006 CHRONIC KIDNEY DISEASE, STAGE III (MOD) [N18.30]11/21/2008 CAD (coronary artery disease) [I25.10] 08/30/2010 Gout [M10.9] 10/11/2010 Pure hypercholesterolemia [E78.00] 09/02/2011 Bladder mass [N32.89] 05/17/2018 Gross hematuria [R31.0] 05/17/2018 Malignant neoplasm of urinary bladder, unspe (more content not included)... Normal [facility] Cardiology Visit Reporton Cardiology Visit Report [facility] [address] [place] [address] OFFICE VISIT Date of Service: 02/15/25 MR#: [id number] Acct: [id number] Name: VALDO GOMEZ Rep #: [id number] : 1935 Provider: Dr. Isidro ochoa MD Age/Sex: 89/M [facility]: [facility] Status: Signed HPI HPI History of Present Illness Details: Patient is a pleasant 89-year-old white male that comes in today for monitoring of his cardiovascular status. The patient had originally presented in our office January 06, 2025. The patient was profoundly hypoxic with acute respiratory hypoxic failure with an O2 saturation of 74% on room air. He was volume overloaded and was taken to the emergency room where he was evaluated and subsequently admitted to the hospital. The patient carries a history of heart failure with preserved ejection fraction but his echocardiogram done during that hospitalization showed an EF had fallen to 40%. He was placed on beta-sung therapy with Coreg 3.125 mg twice daily and Lasix 80 mg in the morning 40 in the evening. The patient diuresed a significant amount of fluid he is actually lost from 200 pounds down to 166 pounds. The patient was readmitted February 09, 2025 and discharged February 13, 2025 with a UTI and dehydration. His Lasix was decreased down to 40 mg daily. His weight has remained stable in the 166 range. Creatinine was 1.26 BUN was slightly elevated his electrolytes were within acceptable ranges. Patient's troponin was 57 on 1 set the second set was 14. The patient denied any chest tightness or squeezing. He did not require oxygen during his hospitalization for the UTI and dehydration. He has been on home oxygen since his initial presentation requiring supplemental oxygen at rest when he was discharged January 09. Today in the office the patient looks much better he is in the wheelchair O2 saturation 94% on room air blood pressure is 92/58 heart rate 76 respiratory rate 18 he weighed 166 pounds on our scale. ECG done in office today shows is persistent atrial fibrillation with left axis deviation and a left bundle branch block. The primary issue is the patient has no appetite he is not eating hardly anything in his home environment by his daughter's report. The patient reports he is just not hungry even though he tries to eat. I did review his medical therapy and have made some changes to try and improve his appetite of DC'd his niacin and Pravachol. As given his debilitated malnourished state I do not feel that treating his lipids are appropriate at this point in time. I went over in detail with the patient and family that it is fine for him to eat what ever he can eat and that they should try and supplement that with [id number] offering him boost or Ensure type supplemental nutrition. Intake Vital Signs 01/06/25 16:57 02/13/25 10:46 02/15/25 15:08 Height 5 ft 10 in 6 ft 6 ft Weight: 166 lb BMI 22.5 BP 92/58 L Blood Pressure Location Lt brachial Position Sitting Respiration 18 Pulse 76 Pulse Source Monitor Pulse Oximetry (%) 92 Oxygen Delivery Method room air Comment weight per patient report Intake Visit Reasons: S/P [facility] 01/06 Fluid Overload Improvement Spec Required: No Accompanied by: Daughter and son-in-law Is patient in pain?: No Allergies SHARON Inhibitors Adverse Reaction (Verified 02/15/25 15:15) Hypotensive Medications ???Medication ???Instructions ???Recorded ???Confirmed ???Type allopurinol 300 mg tablet 300 mg PO DAILY 09/13/17 02/15/25 History amoxicillin 500 mg tablet 2,000 mg PO DAILY PRN DENTIST 08/1802/15/25 History bimatoprost 0.01 % eye drops 1 drp ophthalmic (eye) QHS 8 02/15/25 History (Lumigan) carvedilol 3.125 mg tablet (Coreg) 3.125 mg PO BID 09/13/17 5 History [id number]-zt-asuxc 300 mcg-K 60 1 tab PO DAILY 09/13/17 02/15/25 H istory mcg-lycop 600 mcg-lutein 300 mcg tablet (Centrum Silver Men) nitroglycerin 0.4 mg sublingual 0.4 mg sublingual Q5-15M PRN chest 09/13/17 02/15/25 History tablet pain brinzolamide 1 %-brimonidine 0.2 % 1 drp ophthalmic (eye) BID 02/1002/15/25 History eye drops,suspension (Simbrinza) apixaban 2.5 mg tablet (Eliquis) 2.5 mg PO BID #60 tabs 12/07/24 Rx lutein 10 mg tablet 10 mg PO DAILY 12/07/24 02/15/25 H istory triamcinolone acetonide 0.025 % 1 applic topical BID 01/27/2510/11 History topical cream ciprofloxacin HCl 500 mg tablet 500 mg PO BID #7 tabs 02/13/2510/11 Rx furosemide 40 mg tablet (Lasix) 40 mg PO DAILY #1 TAB 02/13/2510/11 Rx phenazopyridine 100 mg tablet 100 mg PO TID #9 tabs 02/13/2510/11 Rx (Pyridium) potassium chloride 20 mEq 20 meq PO DAILY #1 TAB 02/13/25 Rx tablet,extended release (K-Tab) Eje (more content not included)... Normal [facility] Culture, Blood (WB)on 2024 CUB Blood cultures x2, f rom two different sites No growth in [address] [facility] Comment on above: Performed By: #### L 100.0100, L500.4050, M200.1000, L300.3900, L300.4310, L501.4021, L503.6005 ####[facility] [address] [place], [place], [address] CUB Blood cultures x2, f rom two different sites No growth in [address] [facility] Comment on above: Performed By: #### M 200.1000 ####[facility] [address] [place], [place], [address] Discharge Instructionon 01-17 Discharge Instruction [facility] Medical Records Department [address] [place] [address] Instructions for Home/Discharge Instructions 02/13/25 1415 MR#: [id number] Acct: [id number] Name: VALDO GOMEZ Rep #: [id number] : 1935 89 From: Tyra Ridley DO PCP: Dr. Tyra Munoz MD Status:ADM IN Discharge Instructions Diet Discharge Diet: No restrictions DC O2, CPAP, BIPAP needs Home O2 Discharge instructions: No Dressing / Incision Discharge Activity: Return to Normal Activity Weight Bearing Status: Full weight bearing Follow Up Care Test Results: Test results from this visit will be discussed in further detail at your follow-up appointment, if applicable. Discharge Plan Admission Admit Date/Time: 02/09/25 15:37 Primary Reason for Your Visit: Urinary tract infection, low blood pressure Attending Provider: Tyra Ridley Primary Care Provider: Tyra Munoz Consulting Providers: Ariela Luciano Discharge Orders/Prescriptions Prescriptions: New ciprofloxacin HCl 500 mg Tablet 500 mg PO BID Qty: 7 0RF Rx Instructions: Start in the evening of 02/13/2025 furosemide [Lasix] 40 mg tablet 40 mg PO DAILY Qty: 1 0RF potassium chloride [K-Tab] 20 mEq tablet extended release 20 meq PO DAILY Qty: 1 0RF phenazopyridine [Pyridium] 100 mg tablet 100 mg PO TID Qty: 9 0RF Continued pravastatin 20 mg tablet 20 mg PO DAILY allopurinol 300 mg tablet 300 mg PO DAILY nitroglycerin 0.4 mg tablet, sublingual 0.4 mg SUBLINGUAL Q5-15M PRN (Reason: chest pain) niacin [Niaspan Extended-Release] 500 mg tablet extended release 24 hr 500 mg PO QHS carvedilol [Coreg] 3.125 mg tablet 3.125 mg PO BID amoxicillin 500 mg tablet 2,000 mg PO DAILY PRN (Reason: DENTIST) Patient Comments: 30-60 minutes prior to dental procedure/ONLY WHEN HE GOES TO DENTIST. Lumigan 0.01 % drops 1 drp OPHTHALMIC QHS Rx Instructions: 1 DROP IN BOTH EYES Centrum Silver Men 300-600-300 mcg tablet 1 tab PO DAILY Simbrinza 1-0.2 % drops,suspension 1 drp OPHTHALMIC BID triamcinolone acetonide 0.025 % cream 1 applic topical BID Patient Comments: APPLY TO RIGHT EAR lutein 10 mg tablet 10 mg PO DAILY Rx Instructions: give with meal/snack Eliquis 2.5 mg tablet 2.5 mg PO BID Qty: 60 0RF Discontinued furosemide [Lasix] 40 mg tablet 40 mg PO BID Rx Instructions: one tablet in the AM and one tablet 4-6 hours later potassium chloride 20 mEq Tablet,Er Particles/Crystals 20 meq PO BIDCM 30 Days Qty: 60 0RF Referrals / Follow Up: Tyra Munoz MD [Primary Care Provider] - See Referral Note (In 2 weeks) Disposition Disposition (needs filled in before D/C Order can be placed): Home, Self Care 02/13/25 1422 Tyra Ridley DO CC: Dr. Tyra Munoz MD; Dr. Ariela Luciano MD Signed [facility] Urine Cultureon 02-11-2025 URC Escherichia coli [place] Count >100,000 Escherichia coli: REACTION Ampicillin Islt ALEXANDRA >=32 Ampicillin+Sulbac Islt ALEXANDRA >=32 R Cefepime Islt ALEXANDRA <=0.12 S cefTRIAXone Islt ALEXANDRA 32 R Ciprofloxacin Islt ALEXANDRA <=0.06 S B-Lactamase Extended Susc Islt NEG Gentamicin Islt ALEXANDRA <=1 S levoFLOXacin Islt ALEXANDRA <=0.12 S Meropenem Islt ALEXANDRA <=0.25 S Nitrofurantoin Islt ALEXANDRA <=16 S Pip+Tazo Islt ALEXANDRA <=4 S TMP SMX Islt ALEXANDRA <=20 S [facility] Comment on above: Performed By: #### L 100.0100, L500.4050, M200.1000, L300.3900, L300.4310, L501.4021, L503.6005 #### [facility] [address] [place], [place], [id number] URC Escherichia coli [place] Count >100,000 Escherichia coli: REACTION Ampicillin Islt ALEXANDRA >=32 Ampicillin+Sulbac Islt ALEXANDRA 16 I Cefepime Islt ALEXANDRA <=0.12 S cefTRIAXone Islt ALEXANDRA 32 R Ciprofloxacin Islt ALEXANDRA <=0.06 S B-Lactamase Extended Susc Islt NEG Gentamicin Islt ALEXANDRA <=1 S levoFLOXacin Islt ALEXANDRA <=0.12 S Meropenem Islt ALEXANDRA <=0.25 S Nitrofurantoin Islt ALEXANDRA <=16 S Pip+Tazo Islt ALEXANDRA <=4 S TMP SMX Islt ALEXANDRA <=[address] [facility] Comment on above: Performed By: #### L 100.0100, L500.2500 #### [facility] [address] [place], [place], [id number] Absolute lymphocyte countOrd ered By: Ariela Lcuiano on 02-10-2025 Lymphocytes Auto (Unsp spec) [#/Vol] 0.96 10*3/uL 0.83-4.51 [facility] Absolute neutrophil countOrd ered By: Ariela Luciano on 02-10-2025 Neutrophils (Bld) [#/Vol] 5.4 10*3/uL 2.0-7.7 [facility] Anion gap in Serum or Plasma Ordered By: Ariela Luciano on 02-10-2025 Anion gap [Moles/Vol] 10 mmol/L 5-15 [facility] Automated blood erythrocyte countOrdered By: Ariela Luciano on 02-10-2025 RBC (Bld) [#/Vol] 3.54 10*6/uL Low 4.6-6.2 [facility] Comment on above: Performed By: #### L 100.0100, L500.2500 #### [facility] [address] [place], [place], [id number] Automated blood hematocrit ( percentage)Ordered By: Ariela Luciano on 02-10-2025 Hematocrit (Bld) [Volume fraction] 39.0 % Low 40-54 [facility] Comment on above: Performed By: #### L 100.0100, L500.2500 #### [facility] [address] [place], [address] Automated lymphocyte count a s percentage of total leukocytesOrdered By: Ariela Luciano on 02-10-2025 Lymphocytes/100 WBC Auto (Unsp spec) 13.2 % Low 19-41 [facility] BUN/creatinine ratioOrdered By: Ariela Luciano on 02-10-2025 Urea nitrogen/Creatinine [Mass ratio] 33.1 mg/mg High 10- [facility] Basic Metabolic Profile (BMP )on 02-10-2025 BUN/CRE 33.1 RATIO High 10- [facility] Comment on above: Performed By: #### L 100.0100, L500.4050, M200.1000, L300.3900, L300.4310, L501.4021, L503.6005 #### [facility] [address] [place], [address] ECRCL 41.79 ml/min Low 50-250 [facility] Comment on above: Performed By: #### L 100.0100, L500.4050, M200.1000, L300.3900, L300.4310, L501.4021, L503.6005 #### [facility] [address] [place], [address] GAP 10 Normal 5-15 [facility] Comment on above: Performed By: #### L 100.0100, L500.4050, M200.1000, L300.3900, L300.4310, L501.4021, L503.6005 #### [facility] [address] [place], [address] Potassium [Moles/Vol] 4.1 mmol/L Normal 3.3-5.1 [facility] Comment on above: Performed By: #### L 100.0100, L500.4050, M200.1000, L300.3900, L300.4310, L501.4021, L503.6005 #### [facility] [address] [place], [address] Basophil percentageOrdered B y: Ariela Luciano on 02-10-2025 Basophils/100 WBC (Bld) 0.1 % 0-1 [facility] Comment on above: Performed By: #### L 100.0100, L500.2500 #### [facility] [address] [place], [address] CBC W/Diff, Automatedon 06-2 Absolute Lymph 0.96 X10 3/uL Normal 0.83-4.51 [facility] Comment on above: Performed By: #### L 100.0100, L500.2500 #### [facility] [address] [place], [address] Absolute Neut 5.4 X10 3/uL Normal 2.0-7.7 [facility] Comment on above: Performed By: #### L 100.0100, L500.2500 #### [facility] [address] [place], [address] IG% 0.600 Normal 0.0-0.9 [facility] Comment on above: Result Comment: IG% - Immature Granulocytes (promyelocytes, myelocytes and metamyelocytes) > 1% indicates that a LEFT SHIFT is Present. Performed By: #### L 100.0100, L500.2500 #### [facility] [address] [place], [address] Lymphocytes/100 WBC (Bld) 13.2 % Low 19-41 [facility] Comment on above: Performed By: #### L 100.0100, L500.2500 #### [facility] [address] [place], [address] Nucleated RBC (Bld) [#/Vol] 0 10*3/uL Normal 0-5 [facility] Comment on above: Performed By: #### L 100.0100, L500.2500 #### [facility] [address] [place], [address] RDW SD 65.0 fl High 35.1-43.9 [facility] Comment on above: Performed By: #### L 100.0100, L500.2500 #### [facility] [address] [place], [address] Carbon dioxide, total [Moles /volume] in Central venous bloodOrdered By: Ariela Luciano on 02-10-2025 CO2 [Moles/Vol] 24.9 mmol/L 21.0-32.0 [facility] Comment on above: Performed By: #### L 100.0100, L500.4050, M200.1000, L300.3900, L300.4310, L501.4021, L503.6005 #### [facility] [address] [place], [address] Chloride assayOrdered By: Janell Luciano on 02-10-2025 Chloride [Moles/Vol] 102 mmol/L 98-[address] [facility] Comment on above: Performed By: #### L 100.0100, L500.4050, M200.1000, L300.3900, L300.4310, L501.4021, L503.6005 #### [facility] [address] [place], [address] Eosinophil percentageOrdered By: Ariela Luciano on 02-10-2025 Eosinophils/100 WBC (Bld) 2.6 % 0-5 [facility] Comment on above: Performed By: #### L 100.0100, L500.2500 #### [facility] [address] [place], [address] Erythrocyte distribution wid th ratioOrdered By: Ariela Luciano on 02-10-2025 Erythrocyte distribution width (RBC) [Ratio] 15.9 % High 11.6-14.6 [facility] Comment on above: Performed By: #### L 100.0100, L500.2500 #### [facility] [address] [place], [address] Erythrocyte distribution wid th standard deviationOrdered By: Ariela Luciano on 02-10-2025 Erythrocyte distribution width (RBC) [Ratio] 65.0 fl High 35.1-43.9 [facility] Glomerular filtration rate ( GFR) estimation/1.73 sq m using serum, plasma, or whole bOrdered By: Ariela Luciano on 02-10-2025 GFR/1.73 sq M.predicted among non-blacks MDRD (S/P/Bld) [Vol rate/Area] 55 mL/min/{1.73_m2} Low >60 [facility] Comment on above: mL/min/1.73m2 CKD-EP I Creatinine Equation (2020) Result Comment: mL/m in/1.73m2 CKD-EPI Creatinine Equation (2020) Performed By: #### L 100.0100, L500.4050, M200.1000, L300.3900, L300.4310, L501.4021, L503.6005 #### [facility] [address] [facility] [address] Hemoglobin measurementOrdere d By: Ariela Luciano on 02-10-2025 Hemoglobin (Bld) [Mass/Vol] 12.8 g/dL Low 13.0-16.5 [facility] Comment on above: Performed By: #### L 100.0100, L500.2500 #### [facility] [address] [place] [id number] Immature granulocytes/100 WB C Auto (Bld)Ordered By: Ariela Luciano on 02-10-2025 Immature granulocytes/100 WBC (Bld) 0.600 % 0.0-0.9 [facility] Comment on above: IG% - Immature Granu locytes (promyelocytes, myelocytes and metamyelocytes) > 1% indicates that a LEFT SHIFT is Present. MCV (mean corpuscular volume ) determinationOrdered By: Ariela Luciano on 02-10-2025 MCV (RBC) [Entitic vol] 110.2 fL High 80-94 [facility] Comment on above: Performed By: #### L 100.0100, L500.2500 #### [facility] [address] [facility] [address] Mean corpuscular hemoglobin (MCH) determinationOrdered By: Ariela Luciano on 02-10-2025 MCH (RBC) [Entitic mass] 36.2 pg High 27.0-32.0 [facility] Comment on above: Performed By: #### L 100.0100, L500.2500 #### [facility] [address] [place], [address] Mean corpuscular hemoglobin concentration (MCHC) determinationOrdered By: Ariela Luciano on 02-10-2025 MCHC (RBC) [Mass/Vol] 32.8 g/dL 32-36 [facility] Comment on above: Performed By: #### L 100.0100, L500.2500 #### [facility] [address] [place], [address] Mean platelet volume determi nationOrdered By: Ariela Luciano on 02-10-2025 Platelet mean volume (Bld) [Entitic vol] 11.3 fL 6.2-12.0 [facility] Comment on above: Performed By: #### L 100.0100, L500.2500 #### [facility] [address] [place], [address] Monocyte percentageOrdered B y: Ariela Luciano on 02-10-2025 Monocytes/100 WBC (Bld) 8.8 % 0-10 [facility] Comment on above: Performed By: #### L 100.0100, L500.2500 #### [facility] [address] [place], [address] Neutrophil percentageOrdered By: Ariela Luciano on 02-10-2025 Neutrophils/100 WBC (Bld) 74.7 % High 47-70 [facility] Comment on above: Performed By: #### L 100.0100, L500.2500 #### [facility] [address] [place], [address] Nucleated red blood cell per centageOrdered By: Ariela Luciano on 02-10-2025 Nucleated RBC/100 WBC (Bld) [Ratio] 0 % 0-5 [facility] Platelet countOrdered By: Janell Luciano on 02-10-2025 Platelets (Bld) [#/Vol] 108 10*3/uL Low 150-450 [facility] Comment on above: Performed By: #### L 100.0100, L500.2500 #### [facility] [address] [place], [place], [id number] Potassium measurement (mass/ volume)Ordered By: Ariela Luciano on 02-10-2025 Potassium (Unsp spec) [Mass/Vol] 4.1 mmol/L 3.3-5.1 [facility] Serum creatinine measurement (mass/volume)Ordered By: Ariela Luciano on 02-10-2025 Creatinine [Mass/Vol] 1.26 mg/dL High 0.70-1.20 [facility] Comment on above: Performed By: #### L 100.0100, L500.4050, M200.1000, L300.3900, L300.4310, L501.4021, L503.6005 #### [facility] [address] [facility] [address] [place], [place], [phone] Serum glucose measurement (m ass/volume)Ordered By: Ariela Luciano on 02-10-2025 Glucose [Mass/Vol] 142 mg/dL High 70-99 [facility] Comment on above: Performed By: #### L 100.0100, L500.4050, M200.1000, L300.3900, L300.4310, L501.4021, L503.6005 #### [facility] [address] [facility] [place], [address] Serum or plasma calcium shayy urement (mass/volume)Ordered By: Ariela Luciano on 02-10-2025 Calcium [Mass/Vol] 8.6 mg/dL 7.6-11.0 [facility] Comment on above: Performed By: #### L 100.0100, L500.4050, M200.1000, L300.3900, L300.4310, L501.4021, L503.6005 #### [facility] [address] [facility] [place], [address] Serum or plasma urea nitroge n measurement (mass/volume)Ordered By: Ariela Luciano on 02-10-2025 Urea nitrogen [Mass/Vol] 42 mg/dL High 4-19 [facility] Comment on above: Performed By: #### L 100.0100, L500.4050, M200.1000, L300.3900, L300.4310, L501.4021, L503.6005 #### [facility] [address] [place], [address] Sodium levelOrdered By: Medina Luciano on 02-10-2025 Sodium [Moles/Vol] 137 mmol/L 133-145 [facility] Comment on above: Performed By: #### L 100.0100, L500.4050, M200.1000, L300.3900, L300.4310, L501.4021, L503.6005 #### [facility] [address] [place], [address] White blood cell (WBC) count Ordered By: Ariela Luciano on 02-10-2025 WBC (Bld) [#/Vol] 7.3 10*3/uL 4.4-11.0 [facility] Comment on above: Performed By: #### L 100.0100, L500.2500 #### [facility] [address] [facility] [place], [place], [id number] Absolute lymphocyte countOrd ered By: Mike Gonzalez on 02-09-2025 Lymphocytes Auto (Unsp spec) [#/Vol] 0.92 10*3/uL 0.83-4.51 [facility] Absolute neutrophil countOrd ered By: Mike Gonzalez on 02-09-2025 Neutrophils (Bld) [#/Vol] 8.2 10*3/uL High 2.0-7.7 [facility] Activated partial thrombopla stin time (aPTT) in platelet poor plasma by coagulation aOrdered By: Mike Gonzalez on 02-09-2025 aPTT Coag (PPP) [Time] 37.3 s High 24.1-36.2 [facility] Anion gap in Serum or Plasma Ordered By: Mike Gonzalez on 02-09-2025 Anion gap [Moles/Vol] 8 mmol/L 5-15 [facility] Automated lymphocyte count a s percentage of total leukocytesOrdered By: Mike Gonzalez on 02-09-2025 Lymphocytes/100 WBC Auto (Unsp spec) 8.9 % Low 19-41 [facility] BUN/creatinine ratioOrdered By: Mike Gonzalez on 02-09-2025 Urea nitrogen/Creatinine [Mass ratio] 31.1 mg/mg High 10-20 [facility] Basophil percentageOrdered B y: Mike Gonzalez on 02-09-2025 Basophils/100 WBC (Bld) 0.2 % 0-1 [facility] Bilirubin Test strip Ql (U)O rdered By: Mike Gonzalez on 02-09-2025 Bilirubin Ql (U) Negative Negative [facility] Bilirubin, totalOrdered By: Mike Gonzalez on 02-09-2025 Bilirubin [Mass/Vol] 1.18 mg/dL 0.00-1.[address] [facility] Blood cultureOrdered By: Brent Gonzalez on 02-09-2025 Bacteria identified Cx Nom (Bld) No growth in [address] [facility] Bacteria identified Cx Nom (Bld) No growth in [address] [facility] Brain/Head without Contrasto n 02-09-2025 Brain/Head without Contrast [facility] Imaging Services [address] [place], [place] [address] Brain/Head without Contrast MR#: [id number] Acct: [id number] Name: VALDO GOMEZ Rep #: [id number] : 1935 M 89 From: Mele morin MD PCP: Dr. Tyra Munoz MD Status: [facility] ER Study: Brain/Head without Contrast Date of Exam: 01/16 02/08 Exam# [id number] Ordering Dr: Mike Gonzalez DO PROCEDURE: BRAIN/HEAD WITHOUT CONTRAST 02/09/2025 REASON FOR EXAM: FALL TECHNIQUE: BRAIN/HEAD WITHOUT CONTRAST Coronal and Sagittal reconstruction series were provided. One or more dose reduction techniques were used (e.g., Automated exposure control, adjustment of the mA and/or kV according to patient size, use of iterative reconstruction technique. RADIATION DOSE SUMMARY: CTDlvol: 44.99 mGy DLP: 812.98 mGycm COMPARISON: Prior study dated January 06, 2025. FINDINGS: Brain: Low density in the periventricular white matter suggests mild chronic small vessel ischemic changes. CSF Spaces: Mild generalized cerebral atrophy Sinuses/Mastoids: Stable opacification of the left maxillary sinus with hyperdense contents suggestive of chronic left maxillary sinusitis. Bones: No fracture. CT/Brain/Head without Contrast IMPRESSION: CHRONIC CHANGES. NO ACUTE FINDINGS. Stable examination. Reading Location: [facility] CC: Dr. Tyra Munoz MD; Dr. Mike Gonzalez DO [employer] Attendant: Signed Normal [facility] CBC W/Diff, Automatedon 01-16 Anisocytosis Ql (Bld) RARE Normal [facility] Comment on above: Performed By: #### L 100.0100, L500.4050, M200.1000, L300.3900, L300.4310, L501.4021, L503.6005 #### [facility] [address] [place], [address] [facility] VALDO [facility]OME[facility] ([id number]) 1935 M [facility] Date Time Provider Department 02/09/25 [facility] During your visit today, we recorded the following information about you: Radha Treadwell, ERASTO 02/09/2025 10:36 AM Signed Pt's daughter called in and reports Pt is very fatigued and has a loss of appetite. She states his urine doesn't look good and wanted us to put in to have a urine sample done on him. Pt's comes in and tells daughter that Pt isn't able to walk. I let daughter know that if Pt was previously able to walk and now isn't able to she needs to call the squad and have him taken to the ER. SEVERE weakness (i.e., unable to walk or barely able to walk, requires support) AND [2] new-onset or getting worse Reason: Severe weakness, acute. R/O: anemia, cardiac problem, serious infection, volume depletion, metabolic abnormality. Yes Call EMS 911 Now Care Advice: 1: CALL EMS 911 NOW: * Immediate medical attention is needed. You need to hang up and call 911 (or an ambulance). * Triager Discretion: I'll call you back in a few minutes to be sure you were able to reach them. 2: BRING MEDICINES: * Bring a list of your current medicines when you go to the Emergency Department (ER). * Bring the pill bottles too. This will help the doctor (or IT TECHNICAL ARCHITECT/PA) to make certain you are taking the right medicines and the right dose. 3: CARE ADVICE given per Weakness (Generalized) and Fatigue (Adult) guideline. No She repots they will call the squad to come get her father. Radha Treadwell RN Allergies As of Date: 02/09/2025 Noted Allergy Reaction SHARON INHIBITORS 08/22/2013 14 - Other: See Comments Comments: Severe hypotension VIOXX (ROFECOXIB) 11/12/2023 8 - GI Upset Date Reviewed: 02/03/2025 Reviewed by: Marilin Olsen MA - Fully Assessed Reason for Visit: Patient Update [1234] Prescriptions as of 02/09/2025 - potassium chloride ER (KLOR-CON M20) 20 mEq tablet Take 1 tablet by mouth two times a day. - triamcinolone (KENALOG) 0.025 % cream Apply to affected area two times a day. Right ear. - furosemide (LASIX) 40 mg tablet Take 1 tablet by mouth three times a day. Take 2 tablets in the am and 1 in the pm. - ELIQUIS 2.5 mg tab(s) Take 1 tablet by mouth every 12 hours. - nitroglycerin sublingual (NITROSTAT) 0.4 mg SL tablet Dissolve 1 tablet under the tongue as needed. DISSOLVE ON TONGUE FOR CHEST PAIN. IF NO PAIN RELIEF, CALL 911 - Amoxicillin 500 mg tablet Take 6 tablets one hour before the dentist and 2 tablets six hours afterward. - allopurinol (ZYLOPRIM) 300 mg tablet Take 1 tablet by mouth once daily. - pravastatin (PRAVACHOL) 20 mg tablet Take 1 tablet by mouth once daily. - carvedilol (COREG) 3.125 mg tablet Take 1 tablet by mouth two times a day. - brinzolamide-brimonidine 1%-0.2 % Ophth Susp Use 1 Drop in both eyes two times a day. - bimatoprost (LUMIGAN) 0.01 % drop ophthalmic drops Use 1 Drop in both eyes daily at bedtime. - Lutein 10 mg tab Take 10 mg by mouth once daily. - multivitamin tablet Take 1 tablet by mouth once daily. - niacin sustained release 500 mg tablet Take 1 tablet by mouth daily at bedtime. Meds Comments as of 05/14/2023: Prednisone 10 mg whenever has a gout flare up. On another eye drop. Problem List As Of Date 02/09/2025 Noted Resolved ASA CLASS II [1001] 02/28/2003 Obesity, unspecified [E66.9] 05/27/2005 09/02/2011 GENERAL OSTEOARTHROSIS [M15.9] 05/27/2005 11/19/2006 BENIGN HYPERTENSION [I10] 05/27/2005 CHRONIC KIDNEY DISEASE, STAGE I [N18.1] 11/19/2006 11/21/2008 OSTEOARTHROS NOS-UNSPEC [M19.90] 11/19/2006 CHRONIC KIDNEY DISEASE, STAGE III (MOD) [N18.30]11/21/2008 CAD (coronary artery disease) [I25.10] 08/30/2010 Gout [M10.9] 10/11/2010 Pure hypercholesterolemia [E78.00] 09/02/2011 Bladder mass [N32.89] 05/17/2018 Gross hematuria [R31.0] 05/17/2018 Malignant neoplasm of urinary bladder, unspecif*05/14/2023 11/12/2023 Encounter Status:Closed by RADHA TREADWELL on 02/09/25 Normal [facility] Carbon dioxide, total [Moles /volume] in Central venous bloodOrdered By: Mike Gonzalez on 02-09-2025 CO2 [Moles/Vol] 26.6 mmol/L 21.0-32.0 [facility] Chest PA and Lateralon 02-09 Chest PA and Lateral [facility] Services [address] [place], [place] [address] Chest PA and Lateral MR#: [id number] Acct: [id number] Name: VALDO GOMEZ Rep #: [id number] : 1935 M 89 From: Mele morin MD PCP: Dr. Tyra Munoz MD Status: REG ER Study: Chest PA and Lateral Date of Exam: 02/09/25 Exam# [id number] Ordering Dr: Mike Gonzalez DO PROCEDURE: CHEST PA AND LATERAL 02/09/2025 REASON FOR EXAM: WEAKNESS TECHNIQUE: CHEST PA AND LATERAL COMPARISON: Prior study dated January 06, 2025. FINDINGS: Hardware: EKG electrodes are seen. Heart: Mild cardiomegaly Mediastinum: Calcification of the aortic arch. Lungs: Infiltration at the left lung base with small pleural effusion. Elevation of the right hemidiaphragm. Bones: Degenerative changes are identified within the thoracic spine. RAD/Chest PA and Lateral IMPRESSION: Small left pleural effusion with left basilar infiltration and/or atelectasis. Reading Location: [id number] CC: Dr. Tyra Munoz MD; Dr. Mike Gonzalez DO [employer] [facility] Attendant: Signed Normal [facility] Chloride assayOrdered By: Alistair Gonzalez on 02-09-2025 Chloride [Moles/Vol] 102 mmol/L 98-[address] [facility] Comprehensive Metabolic Prof ilon 02-09-2025 Albumin [Mass/Vol] 2.6 g/dL Low 3.4-4.8 [facility] Comment on above: Performed By: #### L 100.0100, L500.4050, M200.1000, L300.3900, L300.4310, L501.4021, L503.6005 #### [facility] [address] [place], [address] Albumin/Globulin [Mass ratio] 0.9 {ratio} Normal 0.9-2.4 [facility] Comment on above: Performed By: #### L 100.0100, L500.4050, M200.1000, L300.3900, L300.4310, L501.4021, L503.6005 #### [facility] [address] [place], [address] ALK PHOS 176 U/L High 40-129 [facility] Comment on above: Performed By: #### L 100.0100, L500.4050, M200.1000, L300.3900, L300.4310, L501.4021, L503.6005 #### [facility] [address] [place], [address] ALT [Catalytic activity/Vol] 19 U/L Normal <=46 [facility] Comment on above: Performed By: #### L 100.0100, L500.4050, M200.1000, L300.3900, L300.4310, L501.4021, L503.6005 #### [facility] [address] [place], [address] AST [Catalytic activity/Vol] 39 U/L High <=37 [facility] Comment on above: Result Comment: Hemo lysis present, Results??could be affected. ?? Performed By: #### L 100.0100, L500.4050, M200.1000, L300.3900, L300.4310, L501.4021, L503.6005 #### [facility] [address] [place], [address] Bilirubin [Mass/Vol] 1.18 mg/dL Normal 0.00-1.[address] [facility] Comment on above: Performed By: #### L 100.0100, L500.4050, M200.1000, L300.3900, L300.4310, L501.4021, L503.6005 #### [facility] [address] [place], [address] BUN/CRE 31.1 RATIO High 10-20 [facility] Comment on above: Performed By: #### L 100.0100, L500.4050, M200.1000, L300.3900, L300.4310, L501.4021, L503.6005 #### [facility] [address] [place], [address] Calcium [Mass/Vol] 8.8 mg/dL Normal 7.6-11.0 [facility] Comment on above: Performed By: #### L 100.0100, L500.4050, M200.1000, L300.3900, L300.4310, L501.4021, L503.6005 #### [facility] [address] [place], [address] Chloride [Moles/Vol] 102 mmol/L Normal 98-[address] [facility] Comment on above: Performed By: #### L 100.0100, L500.4050, M200.1000, L300.3900, L300.4310, L501.4021, L503.6005 #### [facility] [address] [place], [address] CO2 [Moles/Vol] 26.6 mmol/L Normal 21.0-32.0 [facility] Comment on above: Performed By: #### L 100.0100, L500.4050, M200.1000, L300.3900, L300.4310, L501.4021, L503.6005 #### [facility] [address] [place], [address] Creatinine [Mass/Vol] 1.32 mg/dL High 0.70-1.20 [facility] Comment on above: Performed By: #### L 100.0100, L500.4050, M200.1000, L300.3900, L300.4310, L501.4021, L503.6005 #### [facility] [address] [place], [address] GAP 8 Normal 5-15 [facility] Comment on above: Performed By: #### L 100.0100, L500.4050, M200.1000, L300.3900, L300.4310, L501.4021, L503.6005 #### [facility] [address] [place], [address] GFR/1.73 sq M.predicted among non-blacks MDRD (S/P/Bld) [Vol rate/Area] 52 mL/min/{1.73_m2} Low >60 [facility] Comment on above: Result Comment: mL/m in/1.73m2 CKD-EPI Creatinine Equation (2020) Performed By: #### L 100.0100, L500.4050, M200.1000, L300.3900, L300.4310, L501.4021, L503.6005 #### [facility] [address] [place], [address] Globulin (S) [Mass/Vol] 3.0 g/dL Normal 2.2-4.2 [facility] Comment on above: Performed By: #### L 100.0100, L500.4050, M200.1000, L300.3900, L300.4310, L501.4021, L503.6005 #### [facility] [address] [place], [address] Glucose [Mass/Vol] 143 mg/dL High 70-99 [facility] Comment on above: Performed By: #### L 100.0100, L500.4050, M200.1000, L300.3900, L300.4310, L501.4021, L503.6005 #### [facility] [address] [place], [address] Potassium [Moles/Vol] 4.4 mmol/L Normal 3.3-5.1 [facility] Comment on above: Result Comment: Hemo lysis present, Results??could be affected. ?? Performed By: #### L 100.0100, L500.4050, M200.1000, L300.3900, L300.4310, L501.4021, L503.6005 #### [facility] [address] [place], [address] Sodium [Moles/Vol] 137 mmol/L Normal 133-145 [facility] Comment on above: Performed By: #### L 100.0100, L500.4050, M200.1000, L300.3900, L300.4310, L501.4021, L503.6005 #### [facility] [address] [place], [address] T PROT 5.6 g/dL Low 5.9-8.4 [facility] Comment on above: Performed By: #### L 100.0100, L500.4050, M200.1000, L300.3900, L300.4310, L501.4021, L503.6005 #### [facility] [address] [place], [address] Urea nitrogen [Mass/Vol] 41 mg/dL High 4-19 [facility] Comment on above: Performed By: #### L 100.0100, L500.4050, M200.1000, L300.3900, L300.4310, L501.4021, L503.6005 #### [facility] [address] [place], [address] Emergency Department Summary on 02-09-2025 Emergency Department Summary [facility] Medical Records Department [address] [place] [address] Emergency Department Summary 02/09/25 MR#: [id number] Acct: [id number] Name: VALDO GOMEZ Rep #: [id number] : 1935 89 From: Mike Gonzalez DO PCP: Dr. Tyra Munoz MD Status:REG ER Location: ED HPI History of Present Illness Chief Complaint: Complaint Narrative Narrative: Patient is a 81-year-old male with past medical history of hypertension, hyperlipidemia, chronic kidney disease, atrial fibrillation on Eliquis, heart failure who presented to the emergency department with chief complaint of generalized weakness inability to get up out of bed this morning he felt extremely weak he said. He gets yesterday around 4 PM he states that he had a fall because he felt so weak he notes that he fell backwards but denies hitting his head denies passing out losing consciousness. He states that he is complaining of painful urination. Per EMS the house was very hot as they do not have central air in the home but daughter at bedside states that there is another house that he could have gone to that has central air however he was refusing he states that this was his whether and he did not believe he needed air conditioning. 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 Hypertension Hyperlipidemia Old inferior wall myocardial infarction Home Medications ???Medication ???Instructions ???Recorded ???Last Taken ???Type allopurinol 300 mg tablet 300 mg PO DAILY 09/13/17 02/09/25 History amoxicillin 500 mg tablet 2,000 mg PO DAILY PRN DENTIST 08/18 04/03 Unknown History bimatoprost 0.01 % eye drops 1 drp ophthalmic (eye) QHS 8 12/07/24 History ([place]) carvedilol 3.125 mg tablet (Coreg) 3.125 mg PO BID 09/13/17 5 History tlctgvrh-as-zqhvj 300 mcg-K 60 1 tab PO DAILY 09/13/17 02/09/25 H istory mcg-lycop 600 mcg-lutein 300 mcg tablet (Centrum Silver Men) niacin 500 mg tablet,extended 500 mg PO QHS 09/13/17 12/06/24 Hi story release 24 hr (Niaspan) nitroglycerin 0.4 mg sublingual 0.4 mg sublingual Q5-15M PRN chest 09/13/17 Unknown History tablet pain pravastatin 20 mg tablet 20 mg PO DAILY 09/14/17 02/09/25 H istory brinzolamide 1 %-brimonidine 0.2 % 1 drp ophthalmic (eye) BID 02/10 Unknown History eye drops,suspension (Simbrinza) apixaban 2.5 mg tablet (Eliquis) 2.5 mg PO BID #60 tabs 12/07/24 Rx lutein 10 mg tablet 10 mg PO DAILY 12/07/24 02/09/25 H istory potassium chloride 20 mEq 20 meq PO BIDCM 30 days #60 tabs 0 01/09/25 02/09/25 Rx tablet,extended release(part/cryst) furosemide 40 mg tablet (Lasix) 40 mg PO BID 01/27/25 02/09/25 His tory triamcinolone acetonide 0.025 % 1 applic topical BID 01/27/25 Unkn own History topical cream Allergy/AdvReac Type Severity Reaction Status Date / Time SHARON Inhibitors AdvReac Hypotensive Verified 02/09/25 15:09 Family History Mother , AGe 71 Congestive heart failure Sister , Age 66 CAD (coronary artery disease) Breast cancer S/P CABG (coronary artery bypass graft) Surgical History H/O bilateral inguinal hernia repair H/O bilateral hip replacements H/O right coronary artery stent placement (06/13/10) Social History household members: spouse housing: house current occupational status: retired Smoking Status: Never smoker ROS ROS ED ROS Narrative Constitutional: Denies headache, lightness, dizziness, fevers, chills Eyes: Denies change in vision double vision blurry vision Cardiovascular: Denies chest pain Respiratory: Denies shortness of breath coughing wheezing Abdomen: Denies abdominal pain nausea vomit diarrhea : Complains of painful urination as noted above Neurological: Denies numbness, wheeze, tingling Musculoskeletal: Denies back pain Skin: Denies any rashes or lesions EXAM Physical Exam Narrative Exam Narrative: General: Patient was lying in bed rest comfortably did not appear to be acute distress Head: Atraumatic, normocephalic Eyes: PERRL bilaterally, EOMI blood, no conjunctival injection noted Neck: Soft, supple, trachea midline no tenderness palpation midline cervical spine Cardiovascular: Regular rate and rhythm Respiratory: Clear to auscultation bilaterally Abdomen: Soft, nondistended, no tenderness palpation Extremities: +3/5 strength noted in the bilateral upper and lower extremities, radial pulses +2/4 in the bilateral extremities, no pedal edema on exam Neurological: Patient following commands knew that he was a (more content not included)... Normal [facility] Eosinophil percentageOrdered By: Mikedilshad Gonzalez on 02-09-2025 Eosinophils/100 WBC (Bld) 0.2 % 0-5 [facility] Erythrocyte distribution wid th ratioOrdered By: Mikedilshad Gonzalez on 02-09-2025 Erythrocyte distribution width (RBC) [Ratio] 16.0 % High 11.6-14.6 [facility] Erythrocyte distribution wid th standard deviationOrdered By: Mikedilshad Gonzalez on 02-09-2025 Erythrocyte distribution width (RBC) [Ratio] 65.1 fl High 35.1-43.9 [facility] Glomerular filtration rate ( GFR) estimation/1.73 sq m using serum, plasma, or whole bOrdered By: Mikedilshad Gonzalez on 02-09-2025 GFR/1.73 sq M.predicted among non-blacks MDRD (S/P/Bld) [Vol rate/Area] 52 mL/min/{1.73_m2} Low >60 [facility] Comment on above: mL/min/1.73m2 CKD-EP I Creatinine Equation (2020) H AND P Exam - [facility] 02-09-2025 H&P Exam - Hospitalist [facility] Medical Records Department [address] [place] [address] H P Exam - Hospitalist 02/09/25 1537 MR#: [id number] Acct: [id number] Name: VALDO GOMEZ Rep #: [id number] : 1935 89 From: Ariela Luciano MD PCP: Dr. Tyra Munoz MD Status:REG ER Location: ED HPI - General General Date of Admission: 02/09/25 Date of Service: 02/09/25 Chief Complaint: Generalized weakness HPI Narrative VALDO GOMEZ, is a 89-year-old male history of A-fib on Eliquis, hypertension, CKD, gout, CAD, heart failure who presented [facility] ED 02/09/2025 with generalized weakness to the point he was unable to get out of bed. Yesterday around 4 PM he fell because he was so weak but did not hit his head or lose consciousness. Also complaining of painful urination. Additionally he does not have central air and has been very hot. In the ED patient afebrile, heart rate 75 with a blood pressure 84/44, respiratory rate 21 with a pulse ox 99% on room air. CBC with white blood cell count of 10.3, hemoglobin 12.4, BMP with BUN of 41 and creatinine of 1.32 which is similar to previous. UA suspicious for infection. Troponin of 59. Lactic acid within normal limits. CT of the brain with no acute process, cervical CT with sclerosis of C3 and C5 vertebrae with recommendation to rule out metastatic deposit. Chest x-ray with small left pleural effusion with infiltrate versus atelectasis. Given patient's urinary symptoms with UA suspicious for UTI with suspected patient's generalized weakness was secondary to underlying urinary tract infection. Patient given IV fluids and hospitalist contacted for admission. Patient evaluated with family members at bedside. Patient has been somewhat generally weak for the past 2 days, on Thursday he had a temperature of 102 and had chills and sweats and has not been eating very well, fell yesterday due to weakness and today due to worsening weakness he came to the ED, daughter also feels like he cannot really hear them as well either. Patient denies any chest pain or shortness of breath, no abdominal pain, does have burning on urination but other than that, generalized weakness, fever 2 days ago he denies any other new or acute complaints [facility] Medical History (Updated 02/09/25 @ 15:[address] Ariela Luciano MD) Atherosclerosis of coronary artery of [place] heart without angina pectoris Coronary artery disease DVT (deep venous thrombosis) Gout Hyperlipidemia Hypertension Kidney disease Myocardial infarct Non-smoker Old inferior wall myocardial infarction On home oxygen therapy Home Medications ???Medication ???Instructions ???Recorded ???Last Taken ???Type allopurinol 300 mg tablet 300 mg PO DAILY 09/13/17 02/09/25 History amoxicillin 500 mg tablet 2,000 mg PO DAILY PRN DENTIST 08/18 04/03 Unknown History bimatoprost 0.01 % eye drops 1 drp ophthalmic (eye) QHS 8 12/07/24 History (Cl[place]) carvedilol 3.125 mg tablet (Coreg) 3.125 mg PO BID 09/13/17 5 History ekldfwvb-ab-[id number] 300 mcg-K 60 1 tab PO DAILY 09/13/17 02/09/25 H istory mcg-lycop 600 mcg-lutein 300 mcg tablet (Centrum Silver Men) niacin 500 mg tablet,extended 500 mg PO QHS 09/13/17 12/06/24 Hi story release 24 hr (Niaspan) nitroglycerin 0.4 mg sublingual 0.4 mg sublingual Q5-15M PRN chest 09/13/17 Unknown History tablet pain pravastatin 20 mg tablet 20 mg PO DAILY 09/14/17 02/09/25 H istory brinzolamide 1 %-brimonidine 0.2 % 1 drp ophthalmic (eye) BID 02/10 Unknown History eye drops,suspension (Simbrinza) apixaban 2.5 mg tablet (Eliquis) 2.5 mg PO BID #60 tabs 12/07/24 Rx lutein 10 mg tablet 10 mg PO DAILY 12/07/24 02/09/25 H istory potassium chloride 20 mEq 20 meq PO BIDCM 30 days #60 tabs 0 01/09/25 02/09/25 Rx tablet,extended release(part/cryst) furosemide 40 mg tablet (Lasix) 40 mg PO BID 01/27/25 02/09/25 His tory triamcinolone acetonide 0.025 % 1 applic topical BID 01/27/25 Unkn own History topical cream Allergy/AdvReac Type Severity Reaction Status Date / Time SHARON Inhibitors AdvReac Hypotensive Verified 02/09/25 15:09 Family History Mother , AGe 71 Congestive heart failure Sister , Age 66 CAD (coronary artery disease) Breast cancer S/P CABG (coronary artery bypass graft) Surgical History H/O bilateral hip replacements H/O bilateral inguinal hernia repair H/O right coronary artery stent placement (06/13/10) History of coronary artery stent placement Social History household members: spouse housing: house current occupational status: retired Smoking Status: Never smoker ROS ROS Narrative Gener (more content not included)... Normal [facility] Hematocrit Auto (Bld) [Volum e fraction]Ordered By: Mike Gonzalez on 02-09-2025 Hematocrit (Bld) [Volume fraction] 37.7 % Low 40-54 [facility] Hemoglobin measurementOrdere d By: Mike Gonzalez on 02-09-2025 Hemoglobin (Bld) [Mass/Vol] 12.4 g/dL Low 13.0-16.5 [facility] Immature granulocytes/100 WB C Auto (Bld)Ordered By: Mike Gonzalez on 02-09-2025 Immature granulocytes/100 WBC (Bld) 0.400 % 0.0-0.9 [facility] Comment on above: IG% - Immature Granu locytes (promyelocytes, myelocytes and metamyelocytes) > 1% indicates that a LEFT SHIFT is Present. International normalized rat io (INR) calculationOrdered By: Mike Gonzalez on 02-09-2025 INR Coag (Bld) [Relative time] 2.1 {INR} [facility] Ketones Test strip Ql (U)Ord ered By: Mike Gonzalez on 02-09-2025 Ketones Ql (U) Negative Negative [facility] L499.0042on 02-09-2025 Trop T High Sen 53 ng/L High <=22 [facility] Comment on above: Result Comment: Crit ical Result(s) Called at: 02/09/2025-14:36 by: Bk Escalante to Melissa Morales.??Results read back by same. Performed By: #### L 100.0100, L500.4050, M200.1000, L300.3900, L300.4310, L501.4021, L503.6005 #### [facility] [address] [place], [address] L499.0043on 02-09-2025 Trop T High Sen 14 ng/L Normal <=22 [facility] Comment on above: Performed By: #### L 499.0043 ####[facility] [address] [place], [address] L501.4021on 02-09-2025 Trop T High Sen 59 ng/L Invalid Interpretation Code <=22 [facility] Comment on above: Result Comment: Crit ical Result(s) Called at: 02/09/2026-12:28 by: Bk Escalante to Rita Benoit.??Results read back by same. Performed By: #### L 100.0100, L500.4050, M200.1000, L300.3900, L300.4310, L501.4021, L503.6005 #### [facility] [address] [place], [address] Laboratory - Chemistry and C hemistry - challengeOrdered By: Mikedilshad Gonzalez on 02-09-2025 AST [Catalytic activity/Vol] 39 U/L High <38 [facility] Comment on above: Hemolysis present, R esults could be affected. Laboratory - Hematology and Cell countsOrdered By: Mike Gonzalez on 02-09-2025 Anisocytosis Ql (Bld) RARE [facility] Lactic Acidon 02-09-2025 Lactate [Moles/Vol] 2.0 mmol/L Normal 0.0-2.0 [facility] Comment on above: Order Comment: Y Result Comment: Crit ical Result(s) Called at: 02/09/2026-12:56 by: Bk Escalante to Rita Benoit.??Results read back by same. Performed By: #### L 100.0100, L500.4050, M200.1000, L300.3900, L300.4310, L501.4021, L503.6005 ####[facility] [address] [place], [address] Lactic acid measurementOrder ed By: Mike Gonzalez on 02-09-2025 Lactate [Moles/Vol] 1.6 mmol/L 0.0-2.0 [facility] Comment on above: Performed By: #### L 503.6004 ####[facility] [address] [place], [address] Lactate [Moles/Vol] 2.0 mmol/L 0.0-2.0 [facility] Comment on above: Critical Result(s) C alled at: 02/09/2026-12:56 by: Bk Escalante to Rita Benoit. Results read back by same. MCV (mean corpuscular volume ) determinationOrdered By: Mike Gonzalez on 02-09-2025 MCV (RBC) [Entitic vol] 109.9 fL High 80-94 [facility] Mean corpuscular hemoglobin (MCH) determinationOrdered By: Mike Gonzalez on 02-09-2025 MCH (RBC) [Entitic mass] 36.2 pg High 27.0-32.0 [facility] Mean corpuscular hemoglobin concentration (MCHC) determinationOrdered By: Mike Gonzalez on 02-09-2025 MCHC (RBC) [Mass/Vol] 32.9 g/dL 32-36 [facility] Mean platelet volume determi nationOrdered By: Mike Gonzalez on 02-09-2025 Platelet mean volume (Bld) [Entitic vol] 10.7 fL 6.2-12.0 [facility] Microscopic analysis of urin e for red blood cells (RBC)Ordered By: Mike Gonzalez on 02-09-2025 Microscopic analysis of urine for red blood cells (RBC) 0 SEEN /hpf 0-5 [facility] Monocyte percentageOrdered B y: Mike Gonzalez on 02-09-2025 Monocytes/100 WBC (Bld) 10.2 % High 0-10 [facility] Mucus LM Ql (Urine sed)Order ed By: Mike Gonzalez on 02-09-2025 Mucus Ql (Urine sed) 0 SEEN /hpf [facility] Neutrophil percentageOrdered By: Mike Gonzalez on 02-09-2025 Neutrophils/100 WBC (Bld) 80.1 % High 47-70 [facility] Nitrite Test strip Ql (U)Ord ered By: Mike Gonzalez on 02-09-2025 Nitrite Ql (U) Negative Negative [facility] Nucleated red blood cell per centageOrdered By: Mike Gonzalez on 02-09-2025 Nucleated RBC/100 WBC (Bld) [Ratio] 0 % 0-5 [facility] Partial Thromboplast Timeon 02-09-2025 aPTT Coag (Bld) [Time] 37.3 s High 24.1-36.2 [facility] Comment on above: Performed By: #### L 100.0100, L500.4050, M200.1000, L300.3900, L300.4310, L501.4021, L503.6005 #### [facility] [address] [place], [place], [id number] Platelet countOrdered By: Alistair Gonzalez on 02-09-2025 Platelets (Bld) [#/Vol] 115 10*3/uL Low 150-450 [facility] Potassium measurement (mass/ volume)Ordered By: Mike Gonzalez on 02-09-2025 Potassium (Unsp spec) [Mass/Vol] 4.4 mmol/L 3.3-5.1 [facility] Comment on above: Hemolysis present, R esults could be affected. Protein Test strip Ql (U)Ord ered By: Mike Gonzalez on 02-09-2025 Protein Ql (U) 100 mg/dl High Negative [facility] Prothrombin Time w/INRon INR Coag (PPP) [Relative time] 2.1 {INR} Normal [facility] Comment on above: Performed By: #### L 100.0100, L500.4050, M200.1000, L300.3900, L300.4310, L501.4021, L503.6005 #### [facility] [address] [place], [place], [id number] PT Coag (PPP) [Time] 23.7 s High 11.7-14.[address] [facility] Comment on above: Performed By: #### L 100.0100, L500.4050, M200.1000, L300.3900, L300.4310, L501.4021, L503.6005 #### [facility] [address] [place], [address] Prothrombin timeOrdered By: Mike Gonzalez on 02-09-2025 PT Coag (PPP) [Time] 23.7 s High 11.7-14.[address] [facility] RBC Auto (Bld) [#/Vol]Ordere d By: Mike Gonzalez on 02-09-2025 RBC (Bld) [#/Vol] 3.43 10*6/uL Low 4.6-6.2 [facility] Serum creatinine measurement (mass/volume)Ordered By: Mike Gonzalez on 02-09-2025 Creatinine [Mass/Vol] 1.32 mg/dL High 0.70-1.20 [facility] Serum globulin measurementOr dered By: Mike Gonzalez on 02-09-2025 Globulin (S) [Mass/Vol] 3.0 g/dL 2.2-4.2 [facility] Serum glucose measurement (m ass/volume)Ordered By: Mike Gonzalez on 02-09-2025 Glucose [Mass/Vol] 143 mg/dL High 70-99 [facility] Serum or plasma alanine gan otransferase (ALT) measurementOrdered By: Mike Gonzalez on 02-09-2025 ALT [Catalytic activity/Vol] 19 U/L <47 [facility] Serum or plasma albumin shayy urement (mass/volume)Ordered By: Mike Gonzalez on 02-09-2025 Albumin [Mass/Vol] 2.6 g/dL Low 3.4-4.8 [facility] Serum or plasma albumin/glob ulin mass ratioOrdered By: Mike Gonzalez on 02-09-2025 Albumin/Globulin [Mass ratio] 0.9 {ratio} 0.9-2.4 [facility] Serum or plasma alkaline suze sphatase measurementOrdered By: Mike Gonzalez on 02-09-2025 ALP [Catalytic activity/Vol] 176 U/L High 40-129 [facility] Serum or plasma calcium shayy urement (mass/volume)Ordered By: Mike Gonzalez on 02-09-2025 Calcium [Mass/Vol] 8.8 mg/dL 7.6-11.0 [facility] Serum or plasma urea nitroge n measurement (mass/volume)Ordered By: Mike Gonzalez on 02-09-2025 Urea nitrogen [Mass/Vol] 41 mg/dL High 4-19 [facility] Sodium levelOrdered By: Rabia Gonzalez on 02-09-2025 Sodium [Moles/Vol] 137 mmol/L 133-145 [facility] Spine Cervical without Contr ason 02-09-2025 Spine Cervical without Contras [facility] Imaging Services [address] [place], [place] [address] Spine Cervical without Contras MR#: [id number] Acct: [id number] Name: VALDO GOMEZ Rep #: [id number] : 1935 89 From: Mele morin MD PCP: Dr. Tyra Munoz MD Status: REG ER Study: Spine Cervical without Contras Date of Exam: 0 02/09/25 Exam# [id number] Ordering Dr: Mike Gonzalez DO PROCEDURE: SPINE CERVICAL WITHOUT CONTRAS 02/09/2025 REASON FOR EXAM: FALL TECHNIQUE: SPINE CERVICAL WITHOUT CONTRAS Coronal and Sagittal reconstruction series were provided. CONTRAST: None One or more dose reduction techniques were used (e.g., Automated exposure control, adjustment of the mA and/or kV according to patient size, use of iterative reconstruction technique. RADIATION DOSE SUMMARY: CTDlvol: 22.83 mGy DLP: 440.46 mGycm COMPARISON: None FINDINGS: Alignment: Straightening of the normal cervical lordosis. Vertebrae: Sclerotic foci seen in the body of the C3 and C5 vertebrae. Metastatic deposit should be ruled out. Soft Tissues: Calcification of the carotid bifurcations. Other: C1-2: Degenerative changes of the atlantoaxial joint. C2-3: Mild degree of disc space narrowing. Uncovertebral arthrosis. No significant stenosis seen. C3-4: Sclerosis of the C3 vertebrae as described. Marked degree of disc space narrowing and spondylosis. No significant stenosis seen. C4-5: Marked degree of disc space narrowing. Mild spondylosis. Uncovertebral arthrosis. No significant stenosis seen. C5-6: Sclerotic focus within the body of the C5 vertebrae. Marked degree of disc space narrowing. Uncovertebral arthrosis and bilateral neural foraminal stenosis. Mild degree of bilateral neural foraminal stenosis. C6-7: Marked degree of disc space narrowing. Uncovertebral arthrosis. No significant stenosis seen. C7-T1: Marked degree of disc space narrowing and spondylosis. CT/Spine Cervical without Contras IMPRESSION: DEGENERATIVE CHANGES OF THE CERVICAL SPINE. NO EVIDENCE OF SIGNIFICANT OSSEOUS CENTRAL CANAL OR NEURAL FORAMINAL STENOSIS. Sclerosis of the C3 and C5 vertebrae. Metastatic deposit should be ruled out. Reading Location: [id number] CC: Dr. Tyra Munoz MD; Dr. Mike Gonzalez DO [employer] Room Attendant: Signed Normal [facility] Squamous epithelial cells de tection in urine sediment by light microscopyOrdered By: Mike Gonzalez on 02-09-2025 Epithelial cells.squamous LM Ql (Urine sed) 0 SEEN /hpf 0-5 [facility] Total proteinOrdered By: Brent Gonzalez on 02-09-2025 Protein [Mass/Vol] 5.6 g/dL Low 5.9-8.4 [facility] Troponin T.cardiac [Mass/vol ume] in Serum or Plasma by High sensitivity methodOrdered By: Mike Gonzalez on 02-09-2025 Troponin T.cardiac High sensitivity method [Mass/Vol] 14 ng/L <22 [facility] Troponin T.cardiac High sensitivity method [Mass/Vol] 53 ng/L High <22 [facility] Comment on above: Critical Result(s) C alled at: 02/09/2025-14:36 by: Bk Escalante to Melissa Morales. Results read back by same. Troponin T.cardiac High sensitivity method [Mass/Vol] 59 ng/L High <22 [facility] Comment on above: Delta: 65 on 5-1419Critical Result(s) Called at: 02/09/2026-12:28 by: Bk Escalante to Rita Benoit. Results read back by same. Urinalysis, Completeon 02-09 BACTERIA 2+ /hpf Normal None Seen [facility] Comment on above: Order Comment: LORIE CTOR TO SPECIFY Performed By: #### L 100.0100, L500.4050, M200.1000, L300.3900, L300.4310, L501.4021, L503.6005 #### [facility] [address] [place], [address] WBC >100 SEEN Normal [address] [place] [address] Comment on above: Order Comment: LORIE CTOR TO SPECIFY Performed By: #### L 100.0100, L500.4050, M200.1000, L300.3900, L300.4310, L501.4021, L503.6005 #### [facility] [address] [place], [address] EPI,SQUAMOUS 0 SEEN Normal [address] [place] [address] Comment on above: Order Comment: LORIE CTOR TO SPECIFY Performed By: #### L 100.0100, L500.4050, M200.1000, L300.3900, L300.4310, L501.4021, L503.6005 #### [facility] [address] [place], [address] Mucus Ql (Urine sed) 0 SEEN Normal [facility] Comment on above: Order Comment: LORIE CTOR TO SPECIFY Performed By: #### L 100.0100, L500.4050, M200.1000, L300.3900, L300.4310, L501.4021, L503.6005 #### [facility] [address] [place], [address] RBC 0 SEEN Normal [address] [place] [address] Comment on above: Order Comment: LORIE CTOR TO SPECIFY Performed By: #### L 100.0100, L500.4050, M200.1000, L300.3900, L300.4310, L501.4021, L503.6005 #### [facility] [address] [place], [address] Urine clarityOrdered By: Brent Gonzalez on 02-09-2025 Clarity (U) Cloudy Clear [facility] Urine color determinationOrd ered By: Mike Gonzalez on 02-09-2025 Color (U) Yellow Yellow [facility] Urine cultureOrdered By: Brent Gonzalez on 02-09-2025 Bacteria identified Cx Nom (U) Escherichia coli Abnormal [facility] Urine glucose detectionOrder ed By: Mike Gonzalez on 02-09-2025 Glucose Ql (U) Normal mg/dl Normal [facility] Urine leukocyte esterase det ection by dipstickOrdered By: Mike Gonzalez on 02-09-2025 Leukocyte esterase Test strip Ql (U) 500 /ul High Negative [facility] Urine pHOrdered By: Mike soto on 02-09-2025 pH (U) 6.0 [pH] 5.0 - 8.0 [facility] Urine sediment bacteria coun t by microscopy (number/high power field)Ordered By: Mike Gonzalez on 02-09-2025 Bacteria LM.HPF (Urine sed) [#/Area] 2 /[HPF] None Seen [facility] Urine specific gravity measu rementOrdered By: Mike Gonzalez on 02-09-2025 Specific gravity (U) [Rel density] 1.020 1.002-1.[address] [facility] Urine urobilinogen measureme ntOrdered By: Mike Gonzalez on 02-09-2025 Urobilinogen Ql (U) Normal mg/dl Normal [facility] White blood cell (WBC) count Ordered By: Mike Gonzalez on 02-09-2025 WBC (Bld) [#/Vol] 10.3 10*3/uL 4.4-11.0 [facility] White blood cell countOrdere d By: Mike Gonzalez on 02-09-2025 White blood cell count >100 SEEN /hpf 0-5 [facility] CNOVon 02-03-2025 CNOV Office Visit (FAMPWS ) VALDO GOMEZ ([id number]) 1935 M [facility] Date Time Provider Department 02/03/25 2:20 PM TYRA MUNOZ FAMPSANTOSH During your visit today, we recorded the following information about you: Pulse Respiration Blood pressure Weight 64/minute 14/minute 102/68 70.3 kg Tyra Munoz MD 02/03/2025 5:35 PM Signed Chief Complaint Patient presents with: Follow Up: 2-3 weeks HPI Valdo Gomez is a 89 year old male who presents here today for 2-3 week follow up. CHF/Edema/SOB/A-fib: Follows with [facility]. Taking Eliquis 2.5 mg 1 pill BID, Potassium 20 mEq BID and Lasix 40 mg 2 pills AM and 1 pill in PM. He is monitoring his weight. Is on O2 at 3 Liters. He is down 40 lbs. The swelling in the ankles is down. He feels his breathing is doing ok, only using Oxygen when states his toes are turning blue. Pt has not been checking his BP at home or been able to check his pulse ox at home. He has a hard time getting up at home by himself. Was given order last visit for seat lift mechanism to help him. Has a bed sore on his buttocks that is the size of the size of a dime for 3-4 weeks. Not getting any bigger but not healing. Has tried putting triple antibiotic ointment with pain relief on it, diclofenac sodium gel 1%, Heat lamp, and Cortizone 10, also Triamcinolone Acetonide cream. Past medical history, appointments, medications, allergies reviewed. Previous Medical History PAST MEDICAL HISTORY Diagnosis Date Arthropathy, unspecified, site unspecified CAD (coronary artery disease) Essential hypertension, benign History of recurrent deep vein thrombosis (DVT) 2002 Obesity, unspecified Other premature beats Unspecified hypertensive heart disease Previous Surgical History PAST SURGICAL HISTORY Procedure Laterality Date ARTHRP ACETBLR/PROX FEM PROSTC AGRFT/ALGRFT 02/16 L side ARTHRP ACETBLR/PROX FEM PROSTC AGRFT/ALGRFT 1987 R side CATARACT EXTRACTION HX Bilateral 2014 lens implants PAST SURGICAL HISTORY OF N/A 05/20/2018 Resection Bladder Tumor Transurethral PERC TRANSL COR ANGIO 06/13/2010 Percutaneous Transluminal Coronary Angio Stent REVJ TOT HIP ARTHRP BTH W/WO AGRFT/ALGRFT 07/19 R side RPR 1ST INGUN HRNA AGE 5 YRS/> REDUCIBLE 1996 R side RPR 1ST INGUN HRNA AGE 5 YRS/> REDUCIBLE 08/18 L side TONSILLECTOMY HX age 8 Family History No family history on file. Patient Allergies ALLERGIES Allergen Reactions Sharon Inhibitors Other: See Comments Severe hypotension Vioxx [Rofecoxib] GI Upset Current Medications Current Outpatient Medications on File Prior to Visit Medication Sig triamcinolone (KENALOG) 0.025 % cream Apply to affected area two times a day. Right ear. potassium chloride ER (KLOR-CON M20) 20 mEq tablet Take 1 tablet by mouth two times a day. furosemide (LASIX) 40 mg tablet Take 1 tablet by mouth three times a day. Take 2 tablets in the am and 1 in the pm. ELIQUIS 2.5 mg tab(s) Take 1 tablet by mouth every 12 hours. nitroglycerin sublingual (NITROSTAT) 0.4 mg SL tablet Dissolve 1 tablet under the tongue as needed. DISSOLVE ON TONGUE FOR CHEST PAIN. IF NO PAIN RELIEF, CALL 911 Amoxicillin 500 mg tablet Take 6 tablets one hour before the dentist and 2 tablets six hours afterward. allopurinol (ZYLOPRIM) 300 mg tablet Take 1 tablet by mouth once daily. pravastatin (PRAVACHOL) 20 mg tablet Take 1 tablet by mouth once daily. carvedilol (COREG) 3.125 mg tablet Take 1 tablet by mouth two times a day. brinzolamide-brimonidine 1%-0.2 % Ophth Susp Use 1 Drop in both eyes two times a day. bimatoprost (LUMIGAN) 0.01 % drop ophthalmic drops Use 1 Drop in both eyes daily at bedtime. Lutein 10 mg tab Take 10 mg by mouth once daily. multivitamin tablet Take 1 tablet by mouth once daily. niacin sustained release 500 mg tablet Take 1 tablet by mouth daily at bedtime. No current facility-administered medications on file prior to visit. Social History Social History Tobacco Use Smoking status: Never Smokeless tobacco: Never Vaping Use Vaping status: Never Used Substance Use Topics Alcohol use: No Drug use: No EXAM: BP 102/68 Pulse 64 Resp 14 Wt 70.3 kg (155 lb) SpO2 92% BMI 22.89 kg/m? General Appearance: Well appearing, alert, in no acute distress, well-hydrated, well nourished. and Wheelchair. Skin: two superficial skin ulcerations on mid upper buttock. Lungs: Lungs clear to auscultation. No wheezing, rhonchi, rales.. Heart: irregular, no edema. Health Maintenance List DTaP,Tdap,Td Vaccine(2 - Td or Tdap) due on 09/02/2021 Medicare Advantage Annual Wellness Visit due on 08/17/2024 Covid-19 Vaccine( season) due on 12/12/2024 RSV Vaccine(1 - 1-dose 75+ series) due on 05/16/2025 Depression Screening due on 05/16/2025 Anxiety Screening due on 05/16/2025 LDL Cholesterol (more content not included)... Normal [facility] Anion gap in Serum or Plasma Ordered By: Shante Ruiz on 01-27-2025 Anion gap [Moles/Vol] 10 mmol/L 5-15 [facility] BUN/creatinine ratioOrdered By: Shante Ruiz on 01-27-2025 Urea nitrogen/Creatinine [Mass ratio] 26.5 mg/mg High 10- [facility] Basic Metabolic Profile (BMP )on 01-27-2025 BUN/CRE 26.5 RATIO High [facility] Comment on above: Performed By: #### L 500.2500 ####[facility] [address] [facility] [place], [address] Calcium [Mass/Vol] 9.1 mg/dL Normal 7.6-11.0 [facility] Comment on above: Performed By: #### L 500.2500 ####[facility] [address] [place], [address] Chloride [Moles/Vol] 97 mmol/L Low 98-[address] [facility] Comment on above: Performed By: #### L 500.2500 ####[facility] [address] [place], [address] CO2 [Moles/Vol] 30.5 mmol/L Normal 21.0-32.0 [facility] Comment on above: Performed By: #### L 500.2500 ####[facility] [address] [place], [address] Creatinine [Mass/Vol] 1.34 mg/dL High 0.70-1.20 [facility] Comment on above: Performed By: #### L 500.2500 ####[facility] [address] [place], [address] GAP 10 Normal 5-15 [facility] Comment on above: Performed By: #### L 500.2500 ####[facility] [address] [place], [address] GFR/1.73 sq M.predicted among non-blacks MDRD (S/P/Bld) [Vol rate/Area] 51 mL/min/{1.73_m2} Low >60 [facility] Comment on above: Result Comment: mL/m in/1.73m2 CKD-EPI Creatinine Equation (2020) Performed By: #### L 500.2500 ####[facility] [address] [place], [address] Glucose [Mass/Vol] 132 mg/dL High 70-99 [facility] Comment on above: Performed By: #### L 500.2500 ####[facility] [address] [place], [address] Potassium [Moles/Vol] 3.8 mmol/L Normal 3.3-5.1 [facility] Comment on above: Performed By: #### L 500.2500 ####[facility] [address] [place], [address] Sodium [Moles/Vol] 138 mmol/L Normal 133-145 [facility] Comment on above: Performed By: #### L 500.2500 ####[facility] [address] [place], [address] Urea nitrogen [Mass/Vol] 36 mg/dL High 4-19 [facility] Comment on above: Performed By: #### L 500.2500 ####[facility] [address] [place], [address] Carbon dioxide, total [Moles /volume] in Central venous bloodOrdered By: Shante Ruiz on 01-27-2025 CO2 [Moles/Vol] 30.5 mmol/L 21.0-32.0 [facility] Cardiology Visit Reporton Cardiology Visit Report [facility] [address] [place], [place] [address] OFFICE VISIT Date of Service: 01/27/25 MR#: [id number] Acct: [id number] Name: VALDO GOMEZ Rep #: [id number] : 1935 Provider: JANELL Brasher Age/Sex: 89/M Location: [facility] Status: Signed HPI HPI History of Present Illness Details: Valdo Gomez is an 89 year old male with a history of CAD with remote PCI of the RCA in 2009, heart failure with preserved EF, atrial fibrillation, hypertension and hyperlipidemia. Patient was quickly evaluated in the office as he presented with profound hypoxia O2 saturation 74% even after being on 4 L nasal cannula. He is accompanied by his son-in-law and daughter. Patient had initially presented to our office for evaluation. However he was noted to be hypoxic and sent to the emergency room. He was started on Lasix. His second troponin was mildly elevated, this was likely from demand ischemia from fluid overload. Patient notes that his shortness of breath has improved. He is on oxygen continuously. He does have weakness this is unchanged. His lower extremity edema significantly improved with his Lasix. Intake Vital Signs 01/06/25 16:57 01/27/25 15:38 Height 5 ft 10 in 5 ft 10 in Weight: 166 lb BMI 23.8 BP 119/76 Blood Pressure Location Lt brachial Position Sitting Respiration 20 H Pulse 76 Intake Visit Reasons: S/P [facility] 01/06 Fluid Overload Improvement Spec Required: No Accompanied by: Daughter Is patient in pain?: No Allergies SHARON Inhibitors Adverse Reaction (Verified 02/15/25 15:15) Hypotensive Medications ???Medication ???Instructions ???Recorded ???Confirmed ???Type allopurinol 300 mg tablet 300 mg PO DAILY 09/13/17 02/15/25 History amoxicillin 500 mg tablet 2,000 mg PO DAILY PRN DENTIST 08/1802/15/25 History bimatoprost 0.01 % eye drops 1 drp ophthalmic (eye) QHS 8 02/15/25 History (Lumigan) carvedilol 3.125 mg tablet (Coreg) 3.125 mg PO BID 09/13/17 5 History bpwowkcf-za-hxibb 300 mcg-K 60 1 tab PO DAILY 09/13/17 02/15/25 H istory mcg-lycop 600 mcg-lutein 300 mcg tablet (Centrum Silver Men) nitroglycerin 0.4 mg sublingual 0.4 mg sublingual Q5-15M PRN chest 09/13/17 02/15/25 History tablet pain brinzolamide 1 %-brimonidine 0.2 % 1 drp ophthalmic (eye) BID 02/1002/15/25 History eye drops,suspension (Simbrinza) apixaban 2.5 mg tablet (Eliquis) 2.5 mg PO BID #60 tabs 12/07/24 Rx lutein 10 mg tablet 10 mg PO DAILY 12/07/24 02/15/25 H istory triamcinolone acetonide 0.025 % 1 applic topical BID 01/27/2510/11 History topical cream ciprofloxacin HCl 500 mg tablet 500 mg PO BID #7 tabs 02/13/2510/11 Rx furosemide 40 mg tablet (Lasix) 40 mg PO DAILY #1 TAB 02/13/2510/11 Rx phenazopyridine 100 mg tablet 100 mg PO TID #9 tabs 02/13/2510/11 Rx (Pyridium) potassium chloride 20 mEq 20 meq PO DAILY #1 TAB 02/13/25 Rx tablet,extended release (K-Tab) Ejection fraction %: 40 Have you fallen in the past year?: No PFSH Medical History (Updated 02/20/25 @ 10:27 by Shante Ruiz PA, PA) Heart failure with preserved ejection fraction Kidney disease Non-smoker On home oxygen therapy Coronary artery disease Myocardial infarct DVT (deep venous thrombosis) Gout Atherosclerosis of coronary artery of [place] heart without angina pectoris Hypertension Hyperlipidemia Old inferior wall myocardial infarction Surgical History History of coronary artery stent placement H/O bilateral inguinal hernia repair H/O bilateral hip replacements H/O right coronary artery stent placement (06/13/10) Family History Mother , AGe 71 Congestive heart failure Sister , Age 66 CAD (coronary artery disease) Breast cancer S/P CABG (coronary artery bypass graft) Social History household members: spouse housing: house current occupational status: retired Smoking Status: Never smoker ROS Const Const: Positive for fatigue and weakness Eyes Eyes: Negative for change in vision ENT ENT: Negative for dizziness Cardio Chest Pain: No Palpitations: No Edema: Bilateral (improved greatly) Resp Respiratory: Positive for SOB with activity; Negative for SOB at rest or SOB orthopnea SOB lying down Additional Details: started oxygen in end of december at last appointment. 3L/min via nasal cannula, only takes off short intervals. GI GI: Negative nausea or heartburn Neuro Neuro: Positive for weakness; Negative for dizziness, lightheadedness, near syncope or (more content not included)... Normal [facility] Chloride assayOrdered By: Cassie Ruiz on 01-27-2025 Chloride [Moles/Vol] 97 mmol/L Low 98-[address] [facility] Glomerular filtration rate ( GFR) estimation/1.73 sq m using serum, plasma, or whole bOrdered By: Shante Ruiz on 01-27-2025 GFR/1.73 sq M.predicted among non-blacks MDRD (S/P/Bld) [Vol rate/Area] 51 mL/min/{1.73_m2} Low >60 [facility] Comment on above: mL/min/1.73m2 CKD-EP I Creatinine Equation (2020) Potassium measurement (mass/ volume)Ordered By: Shante Ruiz on 01-27-2025 Potassium (Unsp spec) [Mass/Vol] 3.8 mmol/L 3.3-5.1 [facility] Serum creatinine measurement (mass/volume)Ordered By: Shante Ruiz on 01-27-2025 Creatinine [Mass/Vol] 1.34 mg/dL High 0.70-1.20 [facility] Serum glucose measurement (m ass/volume)Ordered By: Shante Ruiz on 01-27-2025 Glucose [Mass/Vol] 132 mg/dL High 70-99 [facility] Serum or plasma calcium shayy urement (mass/volume)Ordered By: Shante Ruiz on 01-27-2025 Calcium [Mass/Vol] 9.1 mg/dL 7.6-11.0 [facility] Serum or plasma urea nitroge n measurement (mass/volume)Ordered By: Shante Ruiz on 01-27-2025 Urea nitrogen [Mass/Vol] 36 mg/dL High 4-19 [facility] Sodium levelOrdered By: Heriberto Ruiz on 01-27-2025 Sodium [Moles/Vol] 138 mmol/L 133-145 [facility] CBC panel Auto (Bld)on 01-19 Erythrocyte distribution width (RBC) [Ratio] 15.5 % High 11.5 - 15.0 % [facility] Hematocrit (Bld) [Volume fraction] 43.3 % 39.0 - 51.0 % [facility] Hemoglobin (Bld) [Mass/Vol] 14.1 g/dL 13.0 - 17.0 g/dL [facility] Interpretation and review of laboratory results Abnormal [facility] MCH (RBC) [Entitic mass] 35.7 pg High 26.0 - 34.0 pg [facility] MCHC (RBC) [Mass/Vol] 32.6 g/dL 30.5 - 36.0 g/dL [facility] MCV (RBC) [Entitic vol] 109.6 fL High 80.0 - 100.0 fL [facility] Nucleated RBC (Bld) [#/Vol] NINF [facility] Platelet mean volume (Bld) [Entitic vol] 11.1 fL 9.0 - 12.7 fL [facility] Platelets (Bld) [#/Vol] 119 10*3/uL Low [facility] RBC (Bld) [#/Vol] 3.95 10*6/uL Low 4.20 - 6.00 m/uL [facility] WBC (Bld) [#/Vol] 3.88 10*3/uL [facility] Erythrocyte distribution width (RBC) [Ratio] 15.5 % High 11.5-15.0 [facility] Comment on above: Order Comment: Speci men Type: BLOOD SPECIMENOrdering Facility: [facility] Address: [address] [place] [address] Performed By: #### 5 8410-2 ####[facility] [id number] [place] [address] [place] Hematocrit (Bld) [Volume fraction] 43.3 % Normal 39.0-51.0 [facility] Comment on above: Order Comment: Speci men Type: BLOOD SPECIMENOrdering Facility: [facility] Address: [address] [place] [address] Performed By: #### 5 8410-2 ####[facility] [id number] [address] [place] Hemoglobin (Bld) [Mass/Vol] 14.1 g/dL Normal 13.0-17.0 [facility] Comment on above: Order Comment: Speci men Type: BLOOD SPECIMENOrdering Facility: [facility] Address: [address] [place] [address] Performed By: #### 5 8410-2 ####[facility] [id number] [place] [address] [place] MCH (RBC) [Entitic mass] 35.7 pg High 26.0-34.0 [facility] Comment on above: Order Comment: Speci men Type: BLOOD SPECIMENOrdering Facility: [facility] Address: [address] [place] [address] Performed By: #### 5 8410-2 ####[facility] [id number] [place] [address] [place] MCHC (RBC) [Mass/Vol] 32.6 g/dL Normal 30.5-36.0 [facility] Comment on above: Order Comment: Speci men Type: BLOOD SPECIMENOrdering Facility: [facility] Address: [address] [place] [address] Performed By: #### 5 8410-2 ####[facility] [id number] [place], [place] [address] [place] MCV (RBC) [Entitic vol] 109.6 fL High 80.0-100.0 [facility] Comment on above: Order Comment: Speci men Type: BLOOD SPECIMENOrdering Facility: [facility] Address: [address] [place] [address] Performed By: #### 5 8410-2 ####[facility] [id number] [place] [address] [place] Nucleated RBC (Bld) [#/Vol] 10*3/uL Normal <0.01 [facility] Comment on above: Order Comment: Speci men Type: BLOOD SPECIMENOrdering Facility: [facility] Address: [address] [place] [address] Performed By: #### 5 8410-2 ####[facility] [id number] [place] [address] [place] Platelet mean volume (Bld) [Entitic vol] 11.1 fL Normal 9.0-12.7 [facility] Comment on above: Order Comment: Speci men Type: BLOOD SPECIMENOrdering Facility: [facility] Address: [address] [place] [address] Performed By: #### 5 8410-2 ####[facility] [id number] [place] [address] [place] Platelets (Bld) [#/Vol] 119 10*3/uL Low 150-400 [facility] Comment on above: Order Comment: Speci men Type: BLOOD SPECIMENOrdering Facility: [facility] Address: [address] [place] [address] Performed By: #### 5 8410-2 ####[facility] [id number] [place] [address] [place] RBC (Bld) [#/Vol] 3.95 10*6/uL Low 4.20-6.00 [facility] Comment on above: Order Comment: Speci men Type: BLOOD SPECIMENOrdering Facility: [facility] Address: [address] [place] [address] Performed By: #### 5 8410-2 ####[facility] [id number] [place] [address] [place] WBC (Bld) [#/Vol] 3.88 10*3/uL Normal 3.70-11.00 [facility] Comment on above: Order Comment: Speci men Type: BLOOD SPECIMENOrdering Facility: [facility] Address: [address] [place] [address] Performed By: #### 5 8410-2 ####[facility] [id number] [place] [address] [place] CNOVon 01-19-2025 CNOV Office Visit (FAMPWS ) VALDO GOMEZ ([id number]) 1935 M [facility] Date Time Provider Department 01/19/25 11:20 AM TYRA MUNOZ During your visit today, we recorded the following information about you: Pulse Respiration Blood pressure Weight 62/minute 18/minute 106/62 78.9 kg Tyra Munoz MD 01/19/2025 5:25 PM Signed Chief Complaint Patient presents with: Follow Up HPI Valdo Gomez is a 89 year old male who presents here today for 2 week follow up. Since last visit pt was admitted into [facility] for hypoxia and a-fib. Was d/c on 01/09/25. Has not followed up with Cardiology since his admission. EF 40 % onecho. CHF/Edema/SOB/A-fib: Follows with [facility] with most recent on 01/06/25, when he was admitted. Is taking Eliquis 2.5 mg 1 pill BID. Pt advised at the ED to increase Lasix 40 mg to 2 tabs in the am and 1 pm. Potassium Chloride 20 mEq bid was added. Weighing at home daily, today's weight was 174 lbs. Now on O2, 3L. Needs assistance with getting up at home. Requiring assistance with activities of daily living. Past medical history, appointments, medications, allergies reviewed. Previous Medical History PAST MEDICAL HISTORY Diagnosis Date Arthropathy, unspecified, site unspecified CAD (coronary artery disease) Essential hypertension, benign History of recurrent deep vein thrombosis (DVT) 2002 Obesity, unspecified Other premature beats Unspecified hypertensive heart disease Previous Surgical History PAST SURGICAL HISTORY Procedure Laterality Date ARTHRP ACETBLR/PROX FEM PROSTC AGRFT/ALGRFT 02/16 L side ARTHRP ACETBLR/PROX FEM PROSTC AGRFT/ALGRFT 1987 R side CATARACT EXTRACTION HX Bilateral 2014 lens implants PAST SURGICAL HISTORY OF N/A 05/20/2018 Resection Bladder Tumor Transurethral PERC TRANSL COR ANGIO 06/13/2010 Percutaneous Transluminal Coronary Angio Stent REVJ TOT HIP ARTHRP BTH W/WO AGRFT/ALGRFT 07/19 R side RPR 1ST INGUN HRNA AGE 5 YRS/> REDUCIBLE 1996 R side RPR 1ST INGUN HRNA AGE 5 YRS/> REDUCIBLE 08/18 L side TONSILLECTOMY HX age 8 Family History No family history on file. Patient Allergies ALLERGIES Allergen Reactions Sharon Inhibitors Other: See Comments Severe hypotension Vioxx [Rofecoxib] GI Upset Current Medications Current Outpatient Medications on File Prior to Visit Medication Sig furosemide (LASIX) 40 mg tablet Take 1 tablet by mouth once daily. ELIQUIS 2.5 mg tab(s) Take 1 tablet by mouth every 12 hours. furosemide (LASIX) 40 mg tablet Take 2 tablets by mouth once daily. nitroglycerin sublingual (NITROSTAT) 0.4 mg SL tablet Dissolve 1 tablet under the tongue as needed. DISSOLVE ON TONGUE FOR CHEST PAIN. IF NO PAIN RELIEF, CALL 911 Amoxicillin 500 mg tablet Take 6 tablets one hour before the dentist and 2 tablets six hours afterward. allopurinol (ZYLOPRIM) 300 mg tablet Take 1 tablet by mouth once daily. pravastatin (PRAVACHOL) 20 mg tablet Take 1 tablet by mouth once daily. carvedilol (COREG) 3.125 mg tablet Take 1 tablet by mouth two times a day. brinzolamide-brimonidine 1%-0.2 % Ophth Susp Use 1 Drop in both eyes two times a day. triamcinolone (KENALOG) 0.025 % cream Apply to affected area two times a day. Right ear. bimatoprost (LUMIGAN) 0.01 % drop ophthalmic drops Use 1 Drop in both eyes daily at bedtime. Lutein 10 mg tab Take 10 mg by mouth once daily. multivitamin tablet Take 1 tablet by mouth once daily. niacin sustained release 500 mg tablet Take 1 tablet by mouth daily at bedtime. No current facility-administered medications on file prior to visit. Social History Social History Tobacco Use Smoking status: Never Smokeless tobacco: Never Vaping Use Vaping status: Never Used Substance Use Topics Alcohol use: No Drug use: No EXAM: BP 106/62 (BP Site: Left Arm, BP Position: Sitting, BP Cuff Size: Regular Adult) Pulse 62 Resp 18 Wt 78.9 kg (174 lb) SpO2 95% BMI 25.70 kg/m? General Appearance: Well appearing, alert, in no acute distress, well-hydrated, well nourished.. Lungs: Lungs clear to auscultation. No wheezing, rhonchi, rales.. Heart: irregular. Extremities: mild pitting edema. Health Maintenance List DTaP,Tdap,Td Vaccine(2 - Td or Tdap) due on 09/02/2021 Covid-19 Vaccine( season) due on 12/12/2024 RSV Vaccine(1 - 1-dose 75+ series) due on 05/16/2025 Depression Screening due on 05/16/2025 Anxiety Screening due on 05/16/2025 LDL Cholesterol due on 11/02/2025 Diabetes Screening due on 11/03/2027 Influenza Vaccine Completed Advance Directive Discussion Completed Shingrix Vaccine Completed Pneumococcal Vaccine: 50+ Completed Data reviewed ER reports from [facility] ASSESSMENT/PLAN: 1. Acute congestive heart failure, unspecified heart failure type (HCC) - ICD9: 428.0, ICD10: I50.9 (primary diagnosis) EF 40% Diuresin (more content not included)... Normal [facility] Comprehensive metabolic 2000 panelon 01-19-2025 Albumin [Mass/Vol] 3.0 g/dL Low 3.9-4.9 [facility] Comment on above: Order Comment: Speci men Type: BLOOD SPECIMENOrdering Facility: [facility] Address: [address] [place] [address] Performed By: #### 2 4323-8 ####[facility] [id number] [place] [address] [place] ALP [Catalytic activity/Vol] 213 U/L High 38-113 [facility] Comment on above: Order Comment: Speci men Type: BLOOD SPECIMENOrdering Facility: [facility] Address: [address] [place] [address] Performed By: #### 2 4323-8 ####[facility] [id number] [place] [address] [place] ALT [Catalytic activity/Vol] 18 U/L Normal 10-54 [facility] Comment on above: Order Comment: Speci men Type: BLOOD SPECIMENOrdering Facility: [facility] Address: [address] [place] [address] Performed By: #### 2 4323-8 ####[facility] [id number] [place] [address] [place] Anion gap [Moles/Vol] 12 mmol/L Normal 8-15 [facility] Comment on above: Order Comment: Speci men Type: BLOOD SPECIMENOrdering Facility: [facility] Address: [address] [place] [address] Performed By: #### 2 4323-8 ####[facility] [id number] [place] [id number] [place] AST [Catalytic activity/Vol] 38 U/L Normal 14-40 [facility] Comment on above: Order Comment: Speci men Type: BLOOD SPECIMENOrdering Facility: [facility] Address: [address] [place] [address] Performed By: #### 2 4323-8 ####[facility] [id number] [place] [address] [place] Bilirubin [Mass/Vol] 1.3 mg/dL Normal 0.2-1.3 [facility] Comment on above: Order Comment: Speci men Type: BLOOD SPECIMENOrdering Facility: [facility] Address: [address] [place] [address] Performed By: #### 2 4323-8 ####[facility] [id number] [place] [address] [place] Calcium [Mass/Vol] 9.0 mg/dL Normal 8.5-10.2 [facility] Comment on above: Order Comment: Speci men Type: BLOOD SPECIMENOrdering Facility: [facility] Address: [address] [place] [address] Performed By: #### 2 4323-8 ####[facility] [id number] [place] [id number] [place] Chloride [Moles/Vol] 99 mmol/L Normal 98-107 [facility] Comment on above: Order Comment: Speci men Type: BLOOD SPECIMENOrdering Facility: [facility] Address: [address] [place] [address] Performed By: #### 2 4323-8 ####[facility] [id number] [address] [address] [place] CO2 [Moles/Vol] 26 mmol/L Normal 22-30 [facility] Comment on above: Order Comment: Speci men Type: BLOOD SPECIMENOrdering Facility: [facility] Address: [address] [place] [address] Performed By: #### 2 4323-8 ####[facility] [id number] [address] [address] [place] Creatinine [Mass/Vol] 1.33 mg/dL High 0.73-1.22 [facility] Comment on above: Order Comment: Speci men Type: BLOOD SPECIMENOrdering Facility: [facility] Address: [address] [place] [address] Performed By: #### 2 4323-8 ####[facility] [id number] [place] [address] [place] Creatinine and Glomerular filtration rate.predicted panel (S/P/Bld) 51 mL/min/1.73m??? Low >=60 [facility] Comment on above: Order Comment: Speci men Type: BLOOD SPECIMENOrdering Facility: [facility] Address: [address] [place] [address] Result Comment: Erica mated Glomerular Filtration Rate (eGFR) is calculated using the 2020 CKD-EPI creatinine equation. This equation utilizes serum creatinine, sex, and age as parameters. The creatinine assay has traceable calibration to isotope dilution-mass spectrometry. Refer to KDIGO guidelines for clinical interpretation. In patients with unstable renal function, e.g. those with acute kidney injury, the eGFR may not accurately reflect actual GFR. Performed By: #### 2 4323-8 ####[facility] [id number] [facility] [address] [address] [place] Glucose [Mass/Vol] 102 mg/dL High 74-99 [facility] Comment on above: Order Comment: Speci men Type: BLOOD SPECIMENOrdering Facility: [facility] Address: [address] [place] [address] Result Comment: The [place] Diabetes Association (ADA) provides guidance for cutoff values for fasting glucose and random glucose. The ADA defines fasting as no caloric intake for at least 8 hours. Fasting plasma glucose results between 100 to 125 mg/dL indicate increased risk for diabetes (prediabetes). Fasting plasma glucose results greater than or equal to 126 mg/dL meet the criteria for diagnosis of diabetes. In the absence of unequivocal hyperglycemia, results should be confirmed by repeat testing. In a patient with classic symptoms of hyperglycemia or hyperglycemic crisis, random plasma glucose results greater than or equal to 200 mg/dL meet the criteria for diagnosis of diabetes. Reference: Standards of Medical Care in Diabetes 2016, [place] Diabetes Association. Diabetes Care. 2016.39(Suppl 1). Performed By: #### 2 4323-8 ####[facility] [id number] [place] [address] [place] Potassium [Moles/Vol] 4.4 mmol/L Normal 3.7-5.1 [facility] Comment on above: Order Comment: Speci men Type: BLOOD SPECIMENOrdering Facility: [facility] Address: [address] [place] [address] Performed By: #### 2 4323-8 ####[facility] [id number] [place] [address] [place] Protein [Mass/Vol] 6.2 g/dL Low 6.3-8.0 [facility] Comment on above: Order Comment: Speci men Type: BLOOD SPECIMENOrdering Facility: [facility] Address: [address] [place] [id number] Performed By: #### 2 4323-8 ####[facility] [id number] [place] [address] [place] Sodium [Moles/Vol] 137 mmol/L Normal 136-144 [facility] Comment on above: Order Comment: Speci men Type: BLOOD SPECIMENOrdering Facility: [facility] Address: [address] [facility] [address] [id number] Performed By: #### 2 4323-8 ####[facility] [id number] [place] [id number] [place] Urea nitrogen [Mass/Vol] 30 mg/dL High 9-24 [facility] Comment on above: Order Comment: Speci men Type: BLOOD SPECIMENOrdering Facility: [facility] Address: [address] [place] [id number] Performed By: #### 2 4323-8 ####[facility] [id number] [place] [id number] [place] Basic Metabolic Profile (BMP )on 01-10-2025 BUN Normal 4-19 [facility] Comment on above: Result Comment: Canc elled via OM: Order cancelled - Patient discharged Performed By: #### L 100.0100, L500.2500 #### [facility] [address] [place], [address] BUN/CRE Normal 10-20 [facility] Comment on above: Result Comment: Canc elled via OM: Order cancelled - Patient discharged Performed By: #### L 100.0100, L500.2500 #### [facility] [address] [place], [address] Calcium Normal 7.6-11.0 [facility] Comment on above: Result Comment: Canc elled via OM: Order cancelled - Patient discharged Performed By: #### L 100.0100, L500.2500 #### [facility] [address] [place], [address] CL Normal 98-108 [facility] Comment on above: Result Comment: Canc elled via OM: Order cancelled - Patient discharged Performed By: #### L 100.0100, L500.2500 #### [facility] [address] [place], [address] CO2 Normal 21.0-32.0 [facility] Comment on above: Result Comment: Canc elled via OM: Order cancelled - Patient discharged Performed By: #### L 100.0100, L500.2500 #### [facility] [address] [place], [address] CREAT,SERUM Normal 0.70-1.20 [facility] Comment on above: Result Comment: Canc elled via OM: Order cancelled - Patient discharged Performed By: #### L 100.0100, L500.2500 #### [facility] [address] [place], [address] eGFR Normal >60 [facility] Comment on above: Result Comment: Canc elled via OM: Order cancelled - Patient discharged Performed By: #### L 100.0100, L500.2500 #### [facility] [address] [place], [address] GAP Normal 5-15 [facility] Comment on above: Result Comment: Canc elled via OM: Order cancelled - Patient discharged Performed By: #### L 100.0100, L500.2500 #### [facility] [address] [place], [address] GLU Normal 70-99 [facility] Comment on above: Result Comment: Canc elled via OM: Order cancelled - Patient discharged Performed By: #### L 100.0100, L500.2500 #### [facility] [address] [place], [address] Potassium Normal 3.3-5.1 [facility] Comment on above: Result Comment: Canc elled via OM: Order cancelled - Patient discharged Performed By: #### L 100.0100, L500.2500 #### [facility] [address] [place], [address] Basic Metabolic Profile (BMP) Normal 133-145 [facility] Comment on above: Result Comment: Canc elled via OM: Order cancelled - Patient discharged Performed By: #### L 100.0100, L500.2500 #### [facility] [address] [place], [address] CBC W/Diff, Automatedon 05-2 Absolute Neut Normal 2.0-7.7 [facility] Comment on above: Result Comment: Canc elled via OM: Order cancelled - Patient discharged Performed By: #### L 100.0100, L500.2500 #### [facility] [address] [place], [address] HCT Normal 40-54 [facility] Comment on above: Result Comment: Canc elled via OM: Order cancelled - Patient discharged Performed By: #### L 100.0100, L500.2500 #### [facility] [address] [place], [address] HGB Normal 13.0-16.5 [facility] Comment on above: Result Comment: Canc elled via OM: Order cancelled - Patient discharged Performed By: #### L 100.0100, L500.2500 #### [facility] [address] [place], [address] MCH Normal 27.0-32.0 [facility] Comment on above: Result Comment: Canc elled via OM: Order cancelled - Patient discharged Performed By: #### L 100.0100, L500.2500 #### [facility] [address] [place], [address] MCHC Normal 32-36 [facility] Comment on above: Result Comment: Canc elled via OM: Order cancelled - Patient discharged Performed By: #### L 100.0100, L500.2500 #### [facility] [address] [place], [address] MCV Normal 80-94 [facility] Comment on above: Result Comment: Canc elled via OM: Order cancelled - Patient discharged Performed By: #### L 100.0100, L500.2500 #### [facility] [address] [place], [address] NEUT% Normal 47-70 [facility] Comment on above: Result Comment: Canc elled via OM: Order cancelled - Patient discharged Performed By: #### L 100.0100, L500.2500 #### [facility] [address] [place], [address] PLT Normal 150-450 [facility] Comment on above: Result Comment: Canc elled via OM: Order cancelled - Patient discharged Performed By: #### L 100.0100, L500.2500 #### [facility] [address] [place], [address] RBC Normal 4.6-6.2 [facility] Comment on above: Result Comment: Canc elled via OM: Order cancelled - Patient discharged Performed By: #### L 100.0100, L500.2500 #### [facility] [address] [place], [address] RDW CV Normal 11.6-14.6 [facility] Comment on above: Result Comment: Canc elled via OM: Order cancelled - Patient discharged Performed By: #### L 100.0100, L500.2500 #### [facility] [address] [place], [address] RDW SD Normal 35.1-43.9 [facility] Comment on above: Result Comment: Canc elled via OM: Order cancelled - Patient discharged Performed By: #### L 100.0100, L500.2500 #### [facility] [address] [place], [address] WBC Normal 4.4-11.0 [facility] Comment on above: Result Comment: Canc elled via OM: Order cancelled - Patient discharged Performed By: #### L 100.0100, L500.2500 #### [facility] [address] [place], [address] Absolute lymphocyte countOrd ered By: Abundio Hurtado on 01-09-2025 Lymphocytes Auto (Unsp spec) [#/Vol] 0.94 10*3/uL 0.83-4.51 [facility] Absolute neutrophil countOrd ered By: Abundio Hurtado on 01-09-2025 Neutrophils (Bld) [#/Vol] 3.3 10*3/uL 2.0-7.7 [facility] Anion gap in Serum or Plasma Ordered By: Abundio Hurtado on 01-09-2025 Anion gap [Moles/Vol] 11 mmol/L 5-15 [facility] Automated lymphocyte count a s percentage of total leukocytesOrdered By: Abundio Hurtado on 01-09-2025 Lymphocytes/100 WBC Auto (Unsp spec) 17.8 % Low 19-41 [facility] BUN/creatinine ratioOrdered By: Abundio Hurtado on 01-09-2025 Urea nitrogen/Creatinine [Mass ratio] 30.6 mg/mg High 10-20 [facility] Basic Metabolic Profile (BMP )on 01-09-2025 BUN/CRE 30.6 RATIO High 10- [facility] Comment on above: Performed By: #### L 100.0100, L500.4050, M200.1000, L300.3900, L300.4310, L501.4021, L503.6005 #### [facility] [address] [place], [address] Calcium [Mass/Vol] 8.8 mg/dL Normal 7.6-11.0 [facility] Comment on above: Performed By: #### L 100.0100, L500.4050, M200.1000, L300.3900, L300.4310, L501.4021, L503.6005 #### [facility] [address] [place], [address] Chloride [Moles/Vol] 101 mmol/L Normal 98-[address] [facility] Comment on above: Performed By: #### L 100.0100, L500.4050, M200.1000, L300.3900, L300.4310, L501.4021, L503.6005 #### [facility] [address] [place], [address] CO2 [Moles/Vol] 28.6 mmol/L Normal 21.0-32.0 [facility] Comment on above: Performed By: #### L 100.0100, L500.4050, M200.1000, L300.3900, L300.4310, L501.4021, L503.6005 #### [facility] [address] [place], [address] Creatinine [Mass/Vol] 1.25 mg/dL High 0.70-1.20 [facility] Comment on above: Performed By: #### L 100.0100, L500.4050, M200.1000, L300.3900, L300.4310, L501.4021, L503.6005 #### [facility] [address] [place], [address] ECRCL 45.67 ml/min Low 50-250 [facility] Comment on above: Performed By: #### L 100.0100, L500.4050, M200.1000, L300.3900, L300.4310, L501.4021, L503.6005 #### [facility] [address] [place], [address] GAP 11 Normal 5-15 [facility] Comment on above: Performed By: #### L 100.0100, L500.4050, M200.1000, L300.3900, L300.4310, L501.4021, L503.6005 #### [facility] [address] [place], [address] GFR/1.73 sq M.predicted among non-blacks MDRD (S/P/Bld) [Vol rate/Area] 55 mL/min/{1.73_m2} Low >60 [facility] Comment on above: Result Comment: mL/m in/1.73m2 CKD-EPI Creatinine Equation (2020) Performed By: #### L 100.0100, L500.4050, M200.1000, L300.3900, L300.4310, L501.4021, L503.6005 #### [facility] [address] [place], [address] Glucose [Mass/Vol] 118 mg/dL High 70-99 [facility] Comment on above: Performed By: #### L 100.0100, L500.4050, M200.1000, L300.3900, L300.4310, L501.4021, L503.6005 #### [facility] [address] [place], [address] Potassium [Moles/Vol] 3.4 mmol/L Normal 3.3-5.1 [facility] Comment on above: Performed By: #### L 100.0100, L500.4050, M200.1000, L300.3900, L300.4310, L501.4021, L503.6005 #### [facility] [address] [place], [address] Sodium [Moles/Vol] 141 mmol/L Normal 133-145 [facility] Comment on above: Performed By: #### L 100.0100, L500.4050, M200.1000, L300.3900, L300.4310, L501.4021, L503.6005 #### [facility] [address] [place], [address] Urea nitrogen [Mass/Vol] 38 mg/dL High 4-19 [facility] Comment on above: Performed By: #### L 100.0100, L500.4050, M200.1000, L300.3900, L300.4310, L501.4021, L503.6005 #### [facility] [facility] [address] [place], [address] Basophil percentageOrdered B y: Abundio Hurtado on 01-09-2025 Basophils/100 WBC (Bld) 0.4 % 0-1 [facility] CBC W/Diff, Automatedon 12-16 Absolute Lymph 0.94 X10 3/uL Normal 0.83-4.51 [facility] Comment on above: Performed By: #### L 100.0100, L500.4050, M200.1000, L300.3900, L300.4310, L501.4021, L503.6005 #### [facility] [address] [place], [address] Absolute Neut 3.3 X10 3/uL Normal 2.0-7.7 [facility] Comment on above: Performed By: #### L 100.0100, L500.4050, M200.1000, L300.3900, L300.4310, L501.4021, L503.6005 #### [facility] [address] [place], [address] Basophils/100 WBC (Bld) 0.4 % Normal 0-1 [facility] Comment on above: Performed By: #### L 100.0100, L500.4050, M200.1000, L300.3900, L300.4310, L501.4021, L503.6005 #### [facility] [address] [place], [address] Eosinophils/100 WBC (Bld) 2.8 % Normal 0-5 [facility] Comment on above: Performed By: #### L 100.0100, L500.4050, M200.1000, L300.3900, L300.4310, L501.4021, L503.6005 #### [facility] [address] [place], [address] Erythrocyte distribution width (RBC) [Ratio] 14.9 % High 11.6-14.6 [facility] Comment on above: Performed By: #### L 100.0100, L500.4050, M200.1000, L300.3900, L300.4310, L501.4021, L503.6005 #### [facility] [address] [place], [address] Hematocrit (Bld) [Volume fraction] 40.7 % Normal 40-54 [facility] Comment on above: Performed By: #### L 100.0100, L500.4050, M200.1000, L300.3900, L300.4310, L501.4021, L503.6005 #### [facility] [address] [place], [address] Hemoglobin (Bld) [Mass/Vol] 13.8 g/dL Normal 13.0-16.5 [facility] Comment on above: Performed By: #### L 100.0100, L500.4050, M200.1000, L300.3900, L300.4310, L501.4021, L503.6005 #### [facility] [address] [place], [address] IG% 0.400 Normal 0.0-0.9 [facility] Comment on above: Result Comment: IG% - Immature Granulocytes (promyelocytes, myelocytes and metamyelocytes) > 1% indicates that a LEFT SHIFT is Present. Performed By: #### L 100.0100, L500.4050, M200.1000, L300.3900, L300.4310, L501.4021, L503.6005 #### [facility] [address] [place], [address] Lymphocytes/100 WBC (Bld) 17.8 % Low 19-41 [facility] Comment on above: Performed By: #### L 100.0100, L500.4050, M200.1000, L300.3900, L300.4310, L501.4021, L503.6005 #### [facility] [address] [place], [address] MCH (RBC) [Entitic mass] 36.1 pg High 27.0-32.0 [facility] Comment on above: Performed By: #### L 100.0100, L500.4050, M200.1000, L300.3900, L300.4310, L501.4021, L503.6005 #### [facility] [address] [place], [address] MCHC (RBC) [Mass/Vol] 33.9 g/dL Normal 32-36 [facility] Comment on above: Performed By: #### L 100.0100, L500.4050, M200.1000, L300.3900, L300.4310, L501.4021, L503.6005 #### [facility] [address] [place], [address] MCV (RBC) [Entitic vol] 106.5 fL High 80-94 [facility] Comment on above: Performed By: #### L 100.0100, L500.4050, M200.1000, L300.3900, L300.4310, L501.4021, L503.6005 #### [facility] [address] [place], [address] Monocytes/100 WBC (Bld) 16.5 % High 0-10 [facility] Comment on above: Performed By: #### L 100.0100, L500.4050, M200.1000, L300.3900, L300.4310, L501.4021, L503.6005 #### [facility] [address] [place], [address] Neutrophils/100 WBC (Bld) 62.1 % Normal 47-70 [facility] Comment on above: Performed By: #### L 100.0100, L500.4050, M200.1000, L300.3900, L300.4310, L501.4021, L503.6005 #### [facility] [address] [place], [address] Nucleated RBC (Bld) [#/Vol] 0 10*3/uL Normal 0-5 [facility] Comment on above: Performed By: #### L 100.0100, L500.4050, M200.1000, L300.3900, L300.4310, L501.4021, L503.6005 #### [facility] [address] [place], [address] Platelet mean volume (Bld) [Entitic vol] 11.5 fL Normal 6.2-12.0 [facility] Comment on above: Performed By: #### L 100.0100, L500.4050, M200.1000, L300.3900, L300.4310, L501.4021, L503.6005 #### [facility] [address] [place], [address] Platelets (Bld) [#/Vol] 84 10*3/uL Low 150-450 [facility] Comment on above: Performed By: #### L 100.0100, L500.4050, M200.1000, L300.3900, L300.4310, L501.4021, L503.6005 #### [facility] [address] [place], [address] RBC (Bld) [#/Vol] 3.82 10*6/uL Low 4.6-6.2 [facility] Comment on above: Performed By: #### L 100.0100, L500.4050, M200.1000, L300.3900, L300.4310, L501.4021, L503.6005 #### [facility] [address] [place], [address] RDW SD 59.2 fl High 35.1-43.9 [facility] Comment on above: Performed By: #### L 100.0100, L500.4050, M200.1000, L300.3900, L300.4310, L501.4021, L503.6005 #### [facility] [address] [place], [place], [id number] (463) WBC (Bld) [#/Vol] 5.3 10*3/uL Normal 4.4-11.0 [facility] Comment on above: Performed By: #### L 100.0100, L500.4050, M200.1000, L300.3900, L300.4310, L501.4021, L503.6005 #### [facility] [address] [place], [place], [phone] (735) Carbon dioxide, total [Moles /volume] in Central venous bloodOrdered By: Abundio Hurtado on 01-09-2025 CO2 [Moles/Vol] 28.6 mmol/L 21.0-32.0 [facility] Chloride assayOrdered By: Celso Hurtado on 01-09-2025 Chloride [Moles/Vol] 101 mmol/L 98-[address] [facility] Eosinophil percentageOrdered By: Abundio Hurtado on 01-09-2025 Eosinophils/100 WBC (Bld) 2.8 % 0-5 [facility] Erythrocyte distribution wid th ratioOrdered By: Abundio Hurtado on 01-09-2025 Erythrocyte distribution width (RBC) [Ratio] 14.9 % High 11.6-14.6 [facility] Erythrocyte distribution wid th standard deviationOrdered By: Abundio Hurtado on 01-09-2025 Erythrocyte distribution width (RBC) [Ratio] 59.2 fl High 35.1-43.9 [facility] Glomerular filtration rate ( GFR) estimation/1.73 sq m using serum, plasma, or whole bOrdered By: Abundio Hurtado on 01-09-2025 GFR/1.73 sq M.predicted among non-blacks MDRD (S/P/Bld) [Vol rate/Area] 55 mL/min/{1.73_m2} Low >60 [facility] Comment on above: mL/min/1.73m2 CKD-EP I Creatinine Equation (2020) Hematocrit Auto (Bld) [Volum e fraction]Ordered By: Abundio Hurtado on 01-09-2025 Hematocrit (Bld) [Volume fraction] 40.7 % 40-54 [facility] Hemoglobin measurementOrdere d By: Abundio Hurtado on 01-09-2025 Hemoglobin (Bld) [Mass/Vol] 13.8 g/dL 13.0-16.5 [facility] Immature granulocytes/100 WB C Auto (Bld)Ordered By: Abundio Hurtado on 01-09-2025 Immature granulocytes/100 WBC (Bld) 0.400 % 0.0-0.9 [facility] Comment on above: IG% - Immature Granu locytes (promyelocytes, myelocytes and metamyelocytes) > 1% indicates that a LEFT SHIFT is Present. MCV (mean corpuscular volume ) determinationOrdered By: Abundio Hurtado on 01-09-2025 MCV (RBC) [Entitic vol] 106.5 fL High 80-94 [facility] Mean corpuscular hemoglobin (MCH) determinationOrdered By: Abundio Hurtado on 01-09-2025 MCH (RBC) [Entitic mass] 36.1 pg High 27.0-32.0 [facility] Mean corpuscular hemoglobin concentration (MCHC) determinationOrdered By: Abundio Hurtado on 01-09-2025 MCHC (RBC) [Mass/Vol] 33.9 g/dL 32-36 [facility] Mean platelet volume determi nationOrdered By: Abundio Hurtado on 01-09-2025 Platelet mean volume (Bld) [Entitic vol] 11.5 fL 6.2-12.0 [facility] Monocyte percentageOrdered B y: Abundio Hurtado on 01-09-2025 Monocytes/100 WBC (Bld) 16.5 % High 0-10 [facility] Neutrophil percentageOrdered By: Abundio Hurtado on 01-09-2025 Neutrophils/100 WBC (Bld) 62.1 % 47-70 [facility] Nucleated red blood cell per centageOrdered By: Abundio Hurtado on 01-09-2025 Nucleated RBC/100 WBC (Bld) [Ratio] 0 % 0-5 [facility] Platelet countOrdered By: Celso Hurtado on 01-09-2025 Platelets (Bld) [#/Vol] 84 10*3/uL Low 150-450 [facility] Potassium measurement (mass/ volume)Ordered By: Abundio Hurtado on 01-09-2025 Potassium (Unsp spec) [Mass/Vol] 3.4 mmol/L 3.3-5.1 [facility] RBC Auto (Bld) [#/Vol]Ordere d By: Abundio Hurtado on 01-09-2025 RBC (Bld) [#/Vol] 3.82 10*6/uL Low 4.6-6.2 [facility] Serum creatinine measurement (mass/volume)Ordered By: Abundio Hurtado on 01-09-2025 Creatinine [Mass/Vol] 1.25 mg/dL High 0.70-1.20 [facility] Serum glucose measurement (m ass/volume)Ordered By: Abundio Hurtado on 01-09-2025 Glucose [Mass/Vol] 118 mg/dL High 70-99 [facility] Serum or plasma calcium shayy urement (mass/volume)Ordered By: Abundio Hurtado on 01-09-2025 Calcium [Mass/Vol] 8.8 mg/dL 7.6-11.0 [facility] Serum or plasma urea nitroge n measurement (mass/volume)Ordered By: Abundio Hurtado on 01-09-2025 Urea nitrogen [Mass/Vol] 38 mg/dL High 4-19 [facility] Sodium levelOrdered By: [place] Hurtado on 01-09-2025 Sodium [Moles/Vol] 141 mmol/L 133-145 [facility] White blood cell (WBC) count Ordered By: Abundio Hurtado on 01-09-2025 WBC (Bld) [#/Vol] 5.3 10*3/uL 4.4-11.0 [facility] Basic Metabolic Profile (BMP )on 01-08-2025 BUN/CRE 29.0 RATIO High 10-20 [facility] Comment on above: Performed By: #### L 100.0100, L501.5200, L501.2300, L500.2500 ####[facility] [address] [place], [address] Calcium [Mass/Vol] 8.6 mg/dL Normal 7.6-11.0 [facility] Comment on above: Performed By: #### L 100.0100, L501.5200, L501.2300, L500.2500 ####[facility] [address] [place], [address] Chloride [Moles/Vol] 100 mmol/L Normal 98-[address] [facility] Comment on above: Performed By: #### L 100.0100, L501.5200, L501.2300, L500.2500 ####[facility] [address] [place], [address] CO2 [Moles/Vol] 29.7 mmol/L Normal 21.0-32.0 [facility] Comment on above: Performed By: #### L 100.0100, L501.5200, L501.2300, L500.2500 ####[facility] [address] [place], [address] Creatinine [Mass/Vol] 1.31 mg/dL High 0.70-1.20 [facility] Comment on above: Performed By: #### L 100.0100, L501.5200, L501.2300, L500.2500 ####[facility] [address] [place], [address] ECRCL 43.58 ml/min Low 50-250 [facility] Comment on above: Performed By: #### L 100.0100, L501.5200, L501.2300, L500.2500 ####[facility] [address] [place], [address] GAP 10 Normal 5-15 [facility] Comment on above: Performed By: #### L 100.0100, L501.5200, L501.2300, L500.2500 ####[facility] [address] [place], [address] GFR/1.73 sq M.predicted among non-blacks MDRD (S/P/Bld) [Vol rate/Area] 52 mL/min/{1.73_m2} Low >60 [facility] Comment on above: Result Comment: mL/m in/1.73m2 CKD-EPI Creatinine Equation (2020) Performed By: #### L 100.0100, L501.5200, L501.2300, L500.2500 ####[facility] [address] [place], [address] Glucose [Mass/Vol] 114 mg/dL High 70-99 [facility] Comment on above: Performed By: #### L 100.0100, L501.5200, L501.2300, L500.2500 ####[facility] [address] [place], [address] Potassium [Moles/Vol] 3.4 mmol/L Normal 3.3-5.1 [facility] Comment on above: Result Comment: Hemo lysis present, Results??could be affected. ?? Performed By: #### L 100.0100, L501.5200, L501.2300, L500.2500 ####[facility] [address] [place], [address] Sodium [Moles/Vol] 140 mmol/L Normal 133-145 [facility] Comment on above: Performed By: #### L 100.0100, L501.5200, L501.2300, L500.2500 ####[facility] [address] [place], [address] Urea nitrogen [Mass/Vol] 38 mg/dL High 4-19 [facility] Comment on above: Performed By: #### L 100.0100, L501.5200, L501.2300, L500.2500 ####[facility] [address] [place], [address] CBC W/Diff, Automatedon 05-2 5-2024 Absolute Lymph 0.81 X10 3/uL Low 0.83-4.51 [facility] Comment on above: Performed By: #### L 100.0100, L501.5200, L501.2300, L500.2500 ####[facility] [address] [place], [address] Absolute Neut 3.3 X10 3/uL Normal 2.0-7.7 [facility] Comment on above: Performed By: #### L 100.0100, L501.5200, L501.2300, L500.2500 ####[facility] [address] [place], [address] Basophils/100 WBC (Bld) 0.4 % Normal 0-1 [facility] Comment on above: Performed By: #### L 100.0100, L501.5200, L501.2300, L500.2500 ####[facility] [address] [place], [address] Eosinophils/100 WBC (Bld) 2.5 % Normal 0-5 [facility] Comment on above: Performed By: #### L 100.0100, L501.5200, L501.2300, L500.2500 ####[facility] [address] [place], [address] Erythrocyte distribution width (RBC) [Ratio] 15.0 % High 11.6-14.6 [facility] Comment on above: Performed By: #### L 100.0100, L501.5200, L501.2300, L500.2500 ####[facility] [address] [place], [address] Hematocrit (Bld) [Volume fraction] 39.4 % Low 40-54 [facility] Comment on above: Performed By: #### L 100.0100, L501.5200, L501.2300, L500.2500 ####[facility] [address] [place], [address] Hemoglobin (Bld) [Mass/Vol] 13.2 g/dL Normal 13.0-16.5 [facility] Comment on above: Performed By: #### L 100.0100, L501.5200, L501.2300, L500.2500 ####[facility] [address] [place], [address] IG% 0.400 Normal 0.0-0.9 [facility] Comment on above: Result Comment: IG% - Immature Granulocytes (promyelocytes, myelocytes and metamyelocytes) > 1% indicates that a LEFT SHIFT is Present. Performed By: #### L 100.0100, L501.5200, L501.2300, L500.2500 ####[facility] [address] [place], [address] Lymphocytes/100 WBC (Bld) 15.7 % Low 19-41 [facility] Comment on above: Performed By: #### L 100.0100, L501.5200, L501.2300, L500.2500 ####[facility] [address] [place], [address] MCH (RBC) [Entitic mass] 36.2 pg High 27.0-32.0 [facility] Comment on above: Performed By: #### L 100.0100, L501.5200, L501.2300, L500.2500 ####[facility] [address] [place], [address] MCHC (RBC) [Mass/Vol] 33.5 g/dL Normal 32-36 [facility] Comment on above: Performed By: #### L 100.0100, L501.5200, L501.2300, L500.2500 ####[facility] [address] [place], [address] MCV (RBC) [Entitic vol] 107.9 fL High 80-94 [facility] Comment on above: Performed By: #### L 100.0100, L501.5200, L501.2300, L500.2500 ####[facility] [address] [place], [address] Monocytes/100 WBC (Bld) 16.9 % High 0-10 [facility] Comment on above: Performed By: #### L 100.0100, L501.5200, L501.2300, L500.2500 ####[facility] [address] [place], [address] Neutrophils/100 WBC (Bld) 64.1 % Normal 47-70 [facility] Comment on above: Performed By: #### L 100.0100, L501.5200, L501.2300, L500.2500 ####[facility] [address] [place], [address] Nucleated RBC (Bld) [#/Vol] 0 10*3/uL Normal 0-5 [facility] Comment on above: Performed By: #### L 100.0100, L501.5200, L501.2300, L500.2500 ####[facility] [address] [place], [address] Platelet mean volume (Bld) [Entitic vol] 12.2 fL High 6.2-12.0 [facility] Comment on above: Performed By: #### L 100.0100, L501.5200, L501.2300, L500.2500 ####[facility] [address] [place], [address] Platelets (Bld) [#/Vol] 79 10*3/uL Low 150-450 [facility] Comment on above: Performed By: #### L 100.0100, L501.5200, L501.2300, L500.2500 ####[facility] [address] [place], [address] RBC (Bld) [#/Vol] 3.65 10*6/uL Low 4.6-6.2 [facility] Comment on above: Performed By: #### L 100.0100, L501.5200, L501.2300, L500.2500 ####[facility] [address] [place], [address] RDW SD 60.6 fl High 35.1-43.9 [facility] Comment on above: Performed By: #### L 100.0100, L501.5200, L501.2300, L500.2500 ####[facility] [address] [place], [address] WBC (Bld) [#/Vol] 5.2 10*3/uL Normal 4.4-11.0 [facility] Comment on above: Performed By: #### L 100.0100, L501.5200, L501.2300, L500.2500 ####[facility] [address] [place], [address] Magnesiumon 01-08-2025 Magnesium [Mass/Vol] 2.0 mg/dL Normal 1.5-2.[address] [facility] Comment on above: Performed By: #### L 100.0100, L501.5200, L501.2300, L500.2500 ####[facility] [address] [place], [address] Magnesium measurement (mass/ volume)Ordered By: Abundio Hurtado on 01-08-2025 Magnesium (Unsp spec) [Mass/Vol] 2.0 mg/dL 1.5-2.2 [facility] Phosphoruson 01-08-2025 Phosphate [Mass/Vol] 3.4 mg/dL Normal 2.7-4.[address] [facility] Comment on above: Performed By: #### L 100.0100, L501.5200, L501.2300, L500.2500 ####[facility] [address] [place], [address] Basic Metabolic Profile (BMP )on 01-07-2025 BUN/CRE 25.5 RATIO High 10-20 [facility] Comment on above: Performed By: #### L 100.0100, L500.4050, M200.1000, L300.3900, L300.4310, L501.4021, L503.6005 #### [facility] [address] [place], [address] Calcium [Mass/Vol] 8.7 mg/dL Normal 7.6-11.0 [facility] Comment on above: Performed By: #### L 100.0100, L500.4050, M200.1000, L300.3900, L300.4310, L501.4021, L503.6005 #### [facility] [address] [place], [address] Chloride [Moles/Vol] 98 mmol/L Normal 98-[address] [facility] Comment on above: Performed By: #### L 100.0100, L500.4050, M200.1000, L300.3900, L300.4310, L501.4021, L503.6005 #### [facility] [address] [place], [address] CO2 [Moles/Vol] 30.3 mmol/L Normal 21.0-32.0 [facility] Comment on above: Performed By: #### L 100.0100, L500.4050, M200.1000, L300.3900, L300.4310, L501.4021, L503.6005 #### [facility] [address] [place], [address] Creatinine [Mass/Vol] 1.44 mg/dL High 0.70-1.20 [facility] Comment on above: Performed By: #### L 100.0100, L500.4050, M200.1000, L300.3900, L300.4310, L501.4021, L503.6005 #### [facility] [address] [place], [place], [phone] ([phone] ECRCL 36.61 ml/min Low 50-250 [facility] Comment on above: Performed By: #### L 100.0100, L500.4050, M200.1000, L300.3900, L300.4310, L501.4021, L503.6005 #### [facility] [address] [place], [place], [phone] (073) GAP 10 Normal 5-15 [facility] Comment on above: Performed By: #### L 100.0100, L500.4050, M200.1000, L300.3900, L300.4310, L501.4021, L503.6005 #### [facility] [address] [place], [address] GFR/1.73 sq M.predicted among non-blacks MDRD (S/P/Bld) [Vol rate/Area] 47 mL/min/{1.73_m2} Low >60 [facility] Comment on above: Result Comment: mL/m in/1.73m2 CKD-EPI Creatinine Equation (2020) Performed By: #### L 100.0100, L500.4050, M200.1000, L300.3900, L300.4310, L501.4021, L503.6005 #### [facility] [address] [place], [place], [phone] (195) Glucose [Mass/Vol] 80 mg/dL Normal 70-99 [facility] Comment on above: Performed By: #### L 100.0100, L500.4050, M200.1000, L300.3900, L300.4310, L501.4021, L503.6005 #### [facility] [address] [place], [address] Potassium [Moles/Vol] 3.0 mmol/L Low 3.3-5.1 [facility] Comment on above: Performed By: #### L 100.0100, L500.4050, M200.1000, L300.3900, L300.4310, L501.4021, L503.6005 #### [facility] [address] [place], [address] Sodium [Moles/Vol] 138 mmol/L Normal 133-145 [facility] Comment on above: Performed By: #### L 100.0100, L500.4050, M200.1000, L300.3900, L300.4310, L501.4021, L503.6005 #### [facility] [address] [place], [address] Urea nitrogen [Mass/Vol] 37 mg/dL High 4-19 [facility] Comment on above: Performed By: #### L 100.0100, L500.4050, M200.1000, L300.3900, L300.4310, L501.4021, L503.6005 #### [facility] [address] [place], [address] Brain without Contraston Brain without Contrast [facility] Imaging Services [address] [place] [address] Brain without Contrast MR#: [id number] Acct: [id number] Name: CHRISTOPHER GOMEZMERCY Willis Rep #: [id number] : [id number] M 89 From: Louie Eng DO PCP: Dr. Tyra Munoz MD Status: ADM IN Study: Brain without Contrast Date of Exam: 01/07/25 Exam# [id number] Ordering Dr: Ariela Luciano MD PROCEDURE: BRAIN WITHOUT CONTRAST 01/07/2025 REASON FOR EXAM: LEFT EYE VISION CHANGES X1 WEEK TECHNIQUE: Noncontrast brain MRI. Multiplanar and multisequence images were obtained. FINDINGS: Brain: No mass, mass effect, hemorrhage or midline shift. Ventricles: Ventricles and sulci are prominent consistent with age-related involution. There is opacification of the left maxillary sinus. Major Intracranial Vessels: The right vertebral artery is dominant. The left vertebral is very small caliber normal vascular flow voids are seen in the anterior circulation and [place]. The patient has bilateral artificial lenses. Lenses and globes in menstrual septal is are otherwise intact Mastoids: Clear MRI/Brain without Contrast IMPRESSION: Opacification of left maxillary sinus. The left orbit globe and lens are otherwise unremarkable. Reading [facility] CC: Dr. Tyra Munoz MD; Dr. Ariela Luciano MD [facility] Attendant: Signed Normal [facility] CBC W/Diff, Automatedon - Absolute Lymph 0.92 X10 3/uL Normal 0.83-4.51 [facility] Comment on above: Performed By: #### L 100.0100, L500.4050, M200.1000, L300.3900, L300.4310, L501.4021, L503.6005 #### [facility] [address]. [place], [place], [id number] ([phone]) Absolute Neut 2.5 X10 3/uL Normal 2.0-7.7 [facility] Comment on above: Performed By: #### L 100.0100, L500.4050, M200.1000, L300.3900, L300.4310, L501.4021, L503.6005 #### [facility] [address] [place], [address] Basophils/100 WBC (Bld) 0.5 % Normal 0-1 [facility] Comment on above: Performed By: #### L 100.0100, L500.4050, M200.1000, L300.3900, L300.4310, L501.4021, L503.6005 #### [facility] [address] [place], [address] Eosinophils/100 WBC (Bld) 2.6 % Normal 0-5 [facility] Comment on above: Performed By: #### L 100.0100, L500.4050, M200.1000, L300.3900, L300.4310, L501.4021, L503.6005 #### [facility] [address] [place], [address] Erythrocyte distribution width (RBC) [Ratio] 15.0 % High 11.6-14.6 [facility] Comment on above: Performed By: #### L 100.0100, L500.4050, M200.1000, L300.3900, L300.4310, L501.4021, L503.6005 #### [facility] [address] [place], [address] Hematocrit (Bld) [Volume fraction] 39.4 % Low 40-54 [facility] Comment on above: Performed By: #### L 100.0100, L500.4050, M200.1000, L300.3900, L300.4310, L501.4021, L503.6005 #### [facility] [address] [place], [address] Hemoglobin (Bld) [Mass/Vol] 13.2 g/dL Normal 13.0-16.5 [facility] Comment on above: Performed By: #### L 100.0100, L500.4050, M200.1000, L300.3900, L300.4310, L501.4021, L503.6005 #### [facility] [address] [place], [address] IG% 0.200 Normal 0.0-0.9 [facility] Comment on above: Result Comment: IG% - Immature Granulocytes (promyelocytes, myelocytes and metamyelocytes) > 1% indicates that a LEFT SHIFT is Present. Performed By: #### L 100.0100, L500.4050, M200.1000, L300.3900, L300.4310, L501.4021, L503.6005 #### [facility] [address] [place], [address] Lymphocytes/100 WBC (Bld) 21.5 % Normal 19-41 [facility] Comment on above: Performed By: #### L 100.0100, L500.4050, M200.1000, L300.3900, L300.4310, L501.4021, L503.6005 #### [facility] [address] [place], [address] MCH (RBC) [Entitic mass] 36.1 pg High 27.0-32.0 [facility] Comment on above: Performed By: #### L 100.0100, L500.4050, M200.1000, L300.3900, L300.4310, L501.4021, L503.6005 #### [facility] [address] [place], [address] MCHC (RBC) [Mass/Vol] 33.5 g/dL Normal 32-36 [facility] Comment on above: Performed By: #### L 100.0100, L500.4050, M200.1000, L300.3900, L300.4310, L501.4021, L503.6005 #### [facility] [address] [place], [address] MCV (RBC) [Entitic vol] 107.7 fL High 80-94 [facility] Comment on above: Performed By: #### L 100.0100, L500.4050, M200.1000, L300.3900, L300.4310, L501.4021, L503.6005 #### [facility] [address] [place], [address] Monocytes/100 WBC (Bld) 15.7 % High 0-10 [facility] Comment on above: Performed By: #### L 100.0100, L500.4050, M200.1000, L300.3900, L300.4310, L501.4021, L503.6005 #### [facility] [address] [place], [address] Neutrophils/100 WBC (Bld) 59.5 % Normal 47-70 [facility] Comment on above: Performed By: #### L 100.0100, L500.4050, M200.1000, L300.3900, L300.4310, L501.4021, L503.6005 #### [facility] [address] [place], [address] Nucleated RBC (Bld) [#/Vol] 0 10*3/uL Normal 0-5 [facility] Comment on above: Performed By: #### L 100.0100, L500.4050, M200.1000, L300.3900, L300.4310, L501.4021, L503.6005 #### [facility] [address] [place], [address] Platelet mean volume (Bld) [Entitic vol] 11.8 fL Normal 6.2-12.0 [facility] Comment on above: Performed By: #### L 100.0100, L500.4050, M200.1000, L300.3900, L300.4310, L501.4021, L503.6005 #### [facility] [address] [place], [address] Platelets (Bld) [#/Vol] 76 10*3/uL Low 150-450 [facility] Comment on above: Performed By: #### L 100.0100, L500.4050, M200.1000, L300.3900, L300.4310, L501.4021, L503.6005 #### [facility] [address] [place], [address] RBC (Bld) [#/Vol] 3.66 10*6/uL Low 4.6-6.2 [facility] Comment on above: Performed By: #### L 100.0100, L500.4050, M200.1000, L300.3900, L300.4310, L501.4021, L503.6005 #### [facility] [address] [place], [address] RDW SD 59.8 fl High 35.1-43.9 [facility] Comment on above: Performed By: #### L 100.0100, L500.4050, M200.1000, L300.3900, L300.4310, L501.4021, L503.6005 #### [facility] [address] [place], [address] WBC (Bld) [#/Vol] 4.3 10*3/uL Low 4.4-11.0 [facility] Comment on above: Performed By: #### L 100.0100, L500.4050, M200.1000, L300.3900, L300.4310, L501.4021, L503.6005 #### [facility] [address] [place], [address] Echocardiogram study reportO rdered By: Broderick Watt on 01-07-2025 Study report [facility] Cardiovascular Services [address] [place] [address] Echo Complete 01/07/25 0807 MR#: [id number] Acct: [id number] Name: VALDO GOMEZ Rep #:[id number] : 1935 89 From: Broderick Frankel Attending Dr: Dr. Abundio Hurtado MD Status: ADM IN Ordering Dr: Ariela Luciano MD Date: Location: [facility] Sex: M C Admitted: 01/06/25 Reason For Study : CHF Procedure This was a 2D Doppler, Color Flow transthoracic echocardiogram. Exam performed portable in patient room. Left Ventricle Normal LV size. Mid cavitary false tendon noted. The left ventricular ejection fraction is 40 %. There is mild to moderate global hypokinesis of the left ventricle. Right Ventricle Normal RV size. Normal systolic function. Atria The left atrium is mildly enlarged. The right atrium is mildly enlarged. Mitral Valve Bileaflet diffuse mitral valve thickening. Moderate (2+) eccentric mitral valve insufficiency. Tricuspid Valve Normal tricuspid valve. Mild to moderate (1-2+) tricuspid valve insufficiency. Pulmonary artery systolic pressure is 46 mmHg. Aortic Valve Trisinus/trileaflet aortic valve. Mild focal aortic valve thickening. Mild (1+) eccentric aortic valve insufficiency. Pulmonic Valve Normal pulmonic valve. Great Vessels Normal aortic root. The pulmonary artery is normal size. The inferior vena cava is dilated. Pericardium/Pleural Small (<1.0 cm) pericardial effusion. MMode/2D Measurements & Calculations LVIDd: 5.8 cm IVSd: 0.91 cm Ao root diam: 3.2 cm LVIDs: 4.6 cm LVPWd: 0.94 cm RVDd: 3.0 cm FS: 20.7 % LAV(MOD-bp): 71.0 ml LVAd ap4: 36.0 cm2 LVAd ap2: 42.0 cm2 LAV(MOD-bp) Indexed: 33.5 ml/m2 LVLd ap4: 8.1 cm LVLd ap2: 8.4 cm LAV(MOD-sp2): 62.7 ml EDV(MOD-sp4): 130.9 ml EDV(MOD-sp2): 178.4 ml LAV(MOD-sp4): 71.6 ml EDV(sp4-el): 136.1 ml EDV(sp2-el): 178.9 ml LVAs ap4: 26.7 cm2 LVAs ap2: 30.0 cm2 LVLs ap4: 7.3 cm LVLs ap2: 7.2 cm ESV(MOD-sp4): 78.8 ml ESV(MOD-sp2): 101.3 ml ESV(sp4-el): 82.1 ml ESV(sp2-el): 105.9 ml EF(MOD-sp4): 39.7 % EF(MOD-sp2): 43.3 % EF(sp4-el): 39.7 % SV(MOD-sp4): 52.0 ml SV(MOD-sp2): 77.2 ml SV(sp4-el): 54.0 ml SI(MOD-sp4): 24.6 ml/m2 SI(MOD-sp2): 36.4 ml/m2 LA A4 area: 22.1 cm2 LA dimension(2D): 4.8 cm RA A4 area: 23.7 cm2 TAPSE: 1.7 cm Doppler Measurements & Calculations MV E max kristin: 110.6 cm/sec Lat Peak E' Kristin: 8.4 cm/sec Med Peak E' Kristin: 6.3 cm/sec E/E' lat: 13.2 E/E' med: 17.4 Ao V2 max: 153.1 cm/sec AI max kristin: 423.7 cm/sec LV V1 max: 100.8 cm/sec Ao max P.4 mmHg AI max P.9 mmHg LV V1 max P.1 mmHg Ao V2 mean: 100.9 cm/sec LV V1 mean P.2 mmHg Ao mean P.8 mmHg AI dec slope: 230.4 cm/sec2 LV V1 mean: 67.3 cm/sec Ao V2 VTI: 30.1 cm AI P1/2t: 538.6 msec LV V1 VTI: 19.0 cm AV (velocity ratio): 0.63 PA V2 max: 82.0 cm/sec TR max kristin: 318.5 cm/sec TR max P.6 mmHg ECHO/Echo Complete Interpretation Summary Normal LV size. The left ventricular ejection fraction is 40 %. Mild (1+) eccentric aortic valve insufficiency. There is mild to moderate global hypokinesis of the left ventricle. Moderate (2+) eccentric mitral valve insufficiency. Ordering Physician: Ariela Luciano Referring Physician: Tyra Munoz Performed By: Rona Darling RDCS, RVT 01/07/25 1045 Date _ Broderick Watt MD CC: Dr. Abundio Hutrado MD; Dr. Tyra Munoz MD; Dr. Ariela Luciano MD ~ Date Dictated: 01/07/25 08 Date Transcribed: 01/07/251044 [employer] Attendant: Signed [facility] Work Phone: Magnetic resonance imaging r eportOrdered By: Louie Eng on 01-07-2025 Study report [facility] Imaging Services [address] [place], [place] [address] Brain without Contrast MR#: [id number] Acct: [id number] Name: VALDO GOMEZ Rep #: [id number] : 1935 M 89 From: Pet er Peer DO PCP: Dr. Tyra Munoz MD Status: AD M IN Study:Brain without Contrast Date of Exam: 01/07/25 Exam# [id number] Ordering Dr: Rito Luciano MD PROCEDURE: BRAIN WITHOUT CONTRAST 01/07/2025 REASON FOR EXAM: LEFT EYE VISION CHANGES X1 WEEK TECHNIQUE: Noncontrast brain MRI. Multiplanar and multisequence images were obtained. FINDINGS: Brain: No mass, mass effect, hemorrhage or midline shift. Ventricles: Ventricles and sulci are prominent consistent with age-related involution. There is opacification of the left maxillary sinus. Major Intracranial Vessels: The right vertebral artery is dominant. The left vertebral is very small caliber normal vascular flow voids are seen in the anterior circulation and [place]. The patient has bilateral artificial lenses. Lenses and globes in menstrual septal is are otherwise intact Mastoids: Clear MRI/Brain without Contrast IMPRESSION: Opacification of left maxillary sinus. The left orbit globe and lens are otherwise unremarkable. Reading Location: [facility] CC: Dr. Tyra Munoz MD; Dr. Ariela Luciano MD ~ [employer] Attendant: Signed [facility] 12 Lead EKGon 01-06-2025 12 Lead EKG [facility] Cardiovascular Services [address] [place] [address] 12 Lead EKG 01/06/25 1357 MR#: [id number] Acct: [id number] Name: VALDO GOMEZ Rep #: [id number] : 1935 89 From: Broderick Watt MD Attending Dr: Dr. Abundio Hurtado MD Status: DIS IN Ordering Dr: Bret Victoria DO Date: 01/06/25 Location: [facility] Sex: M C Admitted: 01/06/25 Test Reason : Blood Pressure : */* mmHG Vent. Rate : 82 BPM Atrial Rate : * BPM P-R Int : * ms QRS Dur : 158 ms QT Int : 428 ms P-R-T Axes : * -86 45 degrees QTcB Int : 500 ms Atrial fibrillation with premature ventricular or aberrantly conducted complexes Left axis deviation Left bundle branch block Abnormal ECG Confirmed by BRODERICK WATT MD ([id number]), continuity editor RADHA TERRAZAS ([id number]) on 01/10/2025 7:03:18 AM Referred By: Ariela Luciano Confirmed By: BRODERICK WATT MD 01/10/25 0703 Date Broderick Watt MD CC: Dr. Abundio Hurtado MD; Dr. Tyra Munoz MD; Dr. Ariela Luciano MD; Dr. Bret Victoria DO Signed Normal [facility] Activated partial thrombopla stin time (aPTT) in platelet poor plasma by coagulation aOrdered By: Bret Esme on 01-06-2025 aPTT Coag (PPP) [Time] 41.0 s High 24.1-36.2 [facility] Basic Metabolic Profile (BMP )on 01-06-2025 BUN/CRE 22.1 RATIO High 10-20 [facility] Comment on above: Performed By: #### L 100.0100, L500.2500 #### [facility] [address] [place], [address] Calcium [Mass/Vol] 9.4 mg/dL Normal 7.6-11.0 [facility] Comment on above: Performed By: #### L 100.0100, L500.2500 #### [facility] [address] [place], [address] Chloride [Moles/Vol] 96 mmol/L Low 98-[address] [facility] Comment on above: Performed By: #### L 100.0100, L500.2500 #### [facility] [address] [place], [address] CO2 [Moles/Vol] 27.0 mmol/L Normal 21.0-32.0 [facility] Comment on above: Performed By: #### L 100.0100, L500.2500 #### [facility] [address] [place], [address] Creatinine [Mass/Vol] 1.51 mg/dL High 0.70-1.20 [facility] Comment on above: Performed By: #### L 100.0100, L500.2500 #### [facility] [address] [place], [address] ECRCL 38.97 ml/min Low 50-250 [facility] Comment on above: Performed By: #### L 100.0100, L500.2500 #### [facility] [address] [place], [address] GAP 13 Normal 5-15 [facility] Comment on above: Performed By: #### L 100.0100, L500.2500 #### [facility] [address] [place], [address] GFR/1.73 sq M.predicted among non-blacks MDRD (S/P/Bld) [Vol rate/Area] 44 mL/min/{1.73_m2} Low >60 [facility] Comment on above: Result Comment: mL/m in/1.73m2 CKD-EPI Creatinine Equation (2020) Performed By: #### L 100.0100, L500.2500 #### [facility] [address] [place], [address] Glucose [Mass/Vol] 129 mg/dL High 70-99 [facility] Comment on above: Performed By: #### L 100.0100, L500.2500 #### [facility] [address] [place], [address] Potassium [Moles/Vol] 3.7 mmol/L Normal 3.3-5.1 [facility] Comment on above: Performed By: #### L 100.0100, L500.2500 #### [facility] [address] [place], [address] Sodium [Moles/Vol] 135 mmol/L Normal 133-145 [facility] Comment on above: Performed By: #### L 100.0100, L500.2500 #### [facility] [address] [place], [address] Urea nitrogen [Mass/Vol] 33 mg/dL High 4-19 [facility] Comment on above: Performed By: #### L 100.0100, L500.2500 #### [facility] [address] [place], [address] Brain/Head without Contrasto n 01-06-2025 Brain/Head without Contrast [facility] Imaging Services [address] [place], [place] [address] Brain/Head without Contrast MR#: [id number] Acct: [id number] Name: VALDO GOMEZ Rep #: [id number] : 1935 M 89 From: Marquez Driscoll MD PCP: Dr. Tyra Munoz MD Status: ADM IN Study: Brain/Head without Contrast Date of Exam: 12/16 11/08 Exam# [id number] Ordering Dr: Ariela Luciano MD PROCEDURE: BRAIN/HEAD WITHOUT CONTRAST 01/06/2025 REASON FOR EXAM: LEFT EYE DEPTH PERCEPTION VISION CHANGE X1 WEEK TECHNIQUE: Head CT without intravenous contrast. Coronal and Sagittal reconstruction series were provided. One or more dose reduction techniques were used (e.g., Automated exposure control, adjustment of the mA and/or kV according to patient size, use of iterative reconstruction technique. RADIATION DOSE SUMMARY: CTDlvol: 47.1 mGy DLP: 908 mGycm COMPARISON: None FINDINGS: Brain: No acute intracranial hemorrhage, midline shift, or mass effect. Low density in the periventricular white matter suggests chronic small vessel ischemic changes. CSF Spaces: Advanced generalized cerebral atrophy. Punctate foci of air are present at the cavernous sinus bilaterally. Sinuses/Mastoids: Opacification throughout the left maxillary sinus with hyperdense contents centrally. Bones: No displaced calvarial fracture. Soft tissue debris in the external auditory canals, likely cerumen. Pneumatized petrous apices. Bilateral enophthalmos. Prior cataract extraction bilaterally. CT/Brain/Head without Contrast IMPRESSION: 1. No acute intracranial abnormality. Senescent changes. 2. Bilateral enophthalmos. 3. Left maxillary sinus disease. Presence of hyperdense contents may be seen with fungal etiology. 4. Punctate foci of air in the region of the cavernous sinuses, which could be related to intravenous access in the absence of trauma. Infection is also possible but statistically less likely. Reading Location: [id number] CC: Dr. Tyra Munoz MD; Dr. Ariela Luciano MD [employer] Attendant: Signed Normal [facility] CBC W/Diff, Automatedon 12-16 PLT EST SLT DEC Normal ADEQ [facility] Comment on above: Performed By: #### L 100.0100, L500.2500 #### [facility] [address] [place], [address] Cardiology Visit Reporton Cardiology Visit Report [facility] [place] [facility] [address] [place] [address] OFFICE VISIT Date of Service: 01/06/25 MR#: [id number] Acct: [id number] Name: VALDO GOMEZ Rep #: [id number] : 1935 Provider: Dr. Isidro ochoa MD Age/Sex: 89/M Location: [facility] Status: Signed HPI HPI History of Present Illness Details: Patient was quickly evaluated in the office as he presented with profound hypoxia O2 saturation 74% even after being on 4 L nasal cannula. He is accompanied by his son-in-law and daughter. The was a new referral from the emergency department where he presented December 07, 2024 and was newly diagnosed with heart failure. His last echocardiogram in March 2019 showed an EF of 65% that was part of the stress echo which was a dobutamine stress echo was negative for ischemia. The patient carries a remote history of heart failure with preserved ejection fraction. He showed up today after being diagnosed with atrial fibrillation in the emergency department December 07, 2024. He has no idea when this started. He remotely had a PCI of his right coronary artery in May 2010 and at that time it diagnosed with an old inferior wall infarct but in 2019 his EF was said to be normal. He also carries a history of hypertension and hyperlipidemia. The patient was started on Eliquis 2.5 mg twice daily in the emergency department he has not had an echocardiogram done since that ED visit. Given the patient's profound hypoxia and the lack of response to nasal cannula he was taken to the emergency department. I carried his ECGs and his last ER note to the emergency department and discussed it with the physician in the ED. Intake Vital Signs 12/07/24 12:42 01/06/25 13:07 Height 5 ft 10 in 5 ft 10 in Weight: 190 lb BMI 27.2 Blood Pressure Location Lt brachial Position Sitting Respiration 18 Comment weight per patient report Intake Visit Reasons: S/P [facility] 12/07 Improvement Spec Required: No Accompanied by: , daughter, son-in-law Is patient in pain?: No Allergies SHARON Inhibitors Adverse Reaction (Verified 01/06/25 13:08) Hypotensive Medications ???Medication ???Instructions ???Recorded ???Confirmed ???Type allopurinol 300 mg tablet 300 mg PO DAILY 09/13/17 01/06/25 History amoxicillin 500 mg tablet 2,000 mg PO DAILY PRN DENTIST 08/1801/06/25 History bimatoprost 0.01 % eye drops 1 drp ophthalmic (eye) QHS 8 01/06/25 History (Clau) carvedilol 3.125 mg tablet (Coreg) 3.125 mg PO BID 09/13/17 5 History [id number] 300 mcg-K 60 1 tab PO DAILY 09/13/17 01/06/25 H istory mcg-lycop 600 mcg-lutein 300 mcg tablet (Centrum Silver Men) niacin 500 mg tablet,extended 500 mg PO QHS 09/13/17 01/06/25 Hi story release 24 hr (Niaspan) nitroglycerin 0.4 mg sublingual 0.4 mg sublingual Q5-15M PRN chest 09/13/17 01/06/25 History tablet pain pravastatin 20 mg tablet 20 mg PO QHS 09/14/17 01/06/25 His tory brinzolamide 1 %-brimonidine 0.2 % 1 drp ophthalmic (eye) BID 02/1001/06/25 History eye drops,suspension (Simbrinza) apixaban 2.5 mg tablet (Eliquis) 2.5 mg PO BID #60 tabs 12/07/24 Rx lutein 10 mg tablet 10 mg PO DAILY 12/07/24 01/06/25 H istory aspirin 81 mg tablet 81 mg PO QDAY 01/06/25 01/06/25 Hi story furosemide 40 mg tablet 80 mg PO DAILY 01/06/25 History Have you fallen in the past year?: No PFSH Medical History Gout Atherosclerosis of coronary artery of [place] heart without angina pectoris Hypertension Hyperlipidemia Old inferior wall myocardial infarction Surgical History H/O bilateral inguinal hernia repair H/O bilateral hip replacements H/O right coronary artery stent placement (06/13/10) Family History Mother , AGe 71 Congestive heart failure Sister , Age 66 CAD (coronary artery disease) Breast cancer S/P CABG (coronary artery bypass graft) Social History Smoking Status: Never smoker ROS Const Const: Negative for fatigue or weakness ENT ENT: Negative for dizziness or balance problems Cardio Chest Pain: No Palpitations: No Edema: Bilateral Muscle aches with walking: None Resp Respiratory: Positive for SOB with activity; Negative for SOB at rest or SOB orthopnea SOB lying down GI GI: Negative nausea, vomiting or heartburn Musc Musc: Negative for muscle weakness or balance problems Neuro Neuro: Negative for dizziness, lightheadedness, near syncope, syncope or weakness Endo Endo: Negative for fatigue Cardiology Exam Const June (more content not included)... Normal [facility] Chest 1 View (Portable)on Chest 1 View (Portable) [facility] Imaging Services [address] [place] [address] Chest 1 View (Portable) MR#: [id number] Acct: [id number] Name: VALDO GOMEZ Rep #: [id number] : 1935 M 89 From: Tyra Victoria MD PCP: Dr. Tyra Munoz MD Status: REG ER Study: Chest 1 View (Portable) Date of Exam: 01/06/25 Exam# [id number] Ordering Dr: Bret Victoria DO EXAM: XR Chest, 1 View CLINICAL INDICATION: SOB TECHNIQUE: Frontal view of the chest. COMPARISON: No relevant prior studies available. FINDINGS: LUNGS AND PLEURAL SPACES: See below. HEART: Cardiomegaly with mild congestion. MEDIASTINUM: Unremarkable. Normal mediastinal contour. BONES/JOINTS: Unremarkable. No acute fracture. RAD/Chest 1 View (Portable) IMPRESSION: Cardiomegaly with mild congestion. Reading Location: [facility] CC: Dr. Tyra Munoz MD; Dr. Bret Victoria DO [employer] Attendant: Signed Normal [facility] Echo Completeon 01-06-2025 Echo Complete [facility] Cardiovascular Services [address] [place] [address] Echo Complete 01/07/25 0807 MR#: [id number] Acct: [id number] Name: VALDO GOMEZ Rep #: [id number] : 1935 89 From: Broderick Watt MD Attending Dr: Dr. Abundio Hurtado MD Status: ADM IN Ordering Dr: Ariela Luciano MD Date: 01/06/25 Location: U Sex: M C Admitted: 01/06/25 Reason For Study : CHF Procedure This was a 2D Doppler, Color Flow transthoracic echocardiogram. Exam performed portable in patient room. Left Ventricle Normal LV size. Mid cavitary false tendon noted. The left ventricular ejection fraction is 40 %. There is mild to moderate global hypokinesis of the left ventricle. Right Ventricle Normal RV size. Normal systolic function. Atria The left atrium is mildly enlarged. The right atrium is mildly enlarged. Mitral Valve Bileaflet diffuse mitral valve thickening. Moderate (2+) eccentric mitral valve insufficiency. Tricuspid Valve Normal tricuspid valve. Mild to moderate (1-2+) tricuspid valve insufficiency. Pulmonary artery systolic pressure is 46 mmHg. Aortic Valve Trisinus/trileaflet aortic valve. Mild focal aortic valve thickening. Mild (1+) eccentric aortic valve insufficiency. Pulmonic Valve Normal pulmonic valve. Great Vessels Normal aortic root. The pulmonary artery is normal size. The inferior vena cava is dilated. Pericardium/Pleural Small (<1.0 cm) pericardial effusion. MMode/2D Measurements Calculations LVIDd: 5.8 cm IVSd: 0.91 cm Ao root diam: 3.2 cm LVIDs: 4.6 cm LVPWd: 0.94 cm RVDd: 3.0 cm FS: 20.7 % LAV(MOD-bp): 71.0 ml LVAd ap4: 36.0 cm2 LVAd ap2: 42.0 cm2 LAV(MOD-bp) Indexed: 33.5 ml/m2 LVLd ap4: 8.1 cm LVLd ap2: 8.4 cm LAV(MOD-sp2): 62.7 ml EDV(MOD-sp4): 130.9 ml EDV(MOD-sp2): 178.4 ml LAV(MOD-sp4): 71.6 ml EDV(sp4-el): 136.1 ml EDV(sp2-el): 178.9 ml LVAs ap4: 26.7 cm2 LVAs ap2: 30.0 cm2 LVLs ap4: 7.3 cm LVLs ap2: 7.2 cm ESV(MOD-sp4): 78.8 ml ESV(MOD-sp2): 101.3 ml ESV(sp4-el): 82.1 ml ESV(sp2-el): 105.9 ml EF(MOD-sp4): 39.7 % EF(MOD-sp2): 43.3 % EF(sp4-el): 39.7 % SV(MOD-sp4): 52.0 ml SV(MOD-sp2): 77.2 ml SV(sp4-el): 54.0 ml SI(MOD-sp4): 24.6 ml/m2 SI(MOD-sp2): 36.4 ml/m2 LA A4 area: 22.1 cm2 LA dimension(2D): 4.8 cm RA A4 area: 23.7 cm2 TAPSE: 1.7 cm Doppler Measurements Calculations MV E max kristin: 110.6 cm/sec Lat Peak E' Kristin: 8.4 cm/sec Med Peak E' Kristin: 6.3 cm/sec E/E' lat: 13.2 E/E' med: 17.4 Ao V2 max: 153.1 cm/sec AI max kristin: 423.7 cm/sec LV V1 max: 100.8 cm/sec Ao max P.4 mmHg AI max P.9 mmHg LV V1 max P.1 mmHg Ao V2 mean: 100.9 cm/sec LV V1 mean P.2 mmHg Ao mean P.8 mmHg AI dec slope: 230.4 cm/sec2 LV V1 mean: 67.3 cm/sec Ao V2 VTI: 30.1 cm AI P1/2t: 538.6 msec LV V1 VTI: 19.0 cm AV (velocity ratio): 0.63 PA V2 max: 82.0 cm/sec TR max kristin: 318.5 cm/sec TR max P.6 mmHg ECHO/Echo Complete Interpretation Summary Normal LV size. The left ventricular ejection fraction is 40 %. Mild (1+) eccentric aortic valve insufficiency. There is mild to moderate global hypokinesis of the left ventricle. Moderate (2+) eccentric mitral valve insufficiency. Ordering Physician: Ariela Luciano Referring Physician: Tyra Munoz Performed By: Rona Darling RDCS, RVT 01/07/251044 Date Broderick Watt MD CC: Dr. Abundio Hurtado MD; Dr. Tyra Munoz MD; Dr. Ariela Luciano MD Date Dictated: 01/07/25 08 Date Transcribed: 01/07/251044 [employer] Attendant: Signed Normal [facility] [facility] Emergency Department Summary on 01-06-2025 Emergency Department Summary [facility] Medical Records Department [address] [place] [address] Emergency Department Summary 01/06/25 MR#: [id number] Acct: [id number] Name: VALDO GOMEZ Rep #: [id number] : 1935 89 From: Bret Mckeon PCP: Dr. Tyra Munoz MD Status:REG ER Location: ED HPI History of Present Illness Chief Complaint: Shortness of Breath Informant: patient, family and other (Dr. Wong, cardiology) Narrative Narrative: Patient sent down from cardiology office for evaluation admission. Dr. Wong came out of the department. Patient follow-up from the ED visit on December 07. He had significant leg swelling with put on water pills clinically stay was getting better however arrival to the office he was 74% on room air. He was placed on 4 L in the office. EKG with A-fib similar from his previous. Family present states less activity since his ED visit. He is on water pills 2 tabs daily. States leg swelling much more improved from previous. Denies orthopnea. Denies cough. Denies chest pains. He had a heart stent in 2009. Per cardiology EF was normal in 2017. Patient reports he was started on Eliquis on his last ED visit. [facility] Medical History (Updated 01/06/25 @ 15:[address] Bret Victoria DO) Gout Atherosclerosis of coronary artery of [place] heart without angina pectoris Hypertension Hyperlipidemia Old inferior wall myocardial infarction Home Medications ???Medication ???Instructions ???Recorded ???Last Taken ???Type allopurinol 300 mg tablet 300 mg PO DAILY 09/13/17 12/07/24 History amoxicillin 500 mg tablet 2,000 mg PO DAILY PRN DENTIST 08/18 04/03 Unknown History bimatoprost 0.01 % eye drops 1 drp ophthalmic (eye) QHS 8 12/07/24 History (Lumigan) carvedilol 3.125 mg tablet (Coreg) 3.125 mg PO BID 09/13/17 5 History hqqetmia-of-hctdy 300 mcg-K 60 1 tab PO DAILY 09/13/17 12/07/24 H istory mcg-lycop 600 mcg-lutein 300 mcg tablet (Centrum Silver Men) niacin 500 mg tablet,extended 500 mg PO QHS 09/13/17 12/06/24 Hi story release 24 hr (Niaspan) nitroglycerin 0.4 mg sublingual 0.4 mg sublingual Q5-15M PRN chest 09/13/17 Unknown History tablet pain pravastatin 20 mg tablet 20 mg PO QHS 09/14/17 12/06/24 His tory brinzolamide 1 %-brimonidine 0.2 % 1 drp ophthalmic (eye) BID 02/10 Unknown History eye drops,suspension (Simbrinza) apixaban 2.5 mg tablet (Eliquis) 2.5 mg PO BID #60 tabs 12/07/24 Un known Rx lutein 10 mg tablet 10 mg PO DAILY 12/07/24 12/07/24 H istory aspirin 81 mg tablet 81 mg PO QDAY 01/06/25 Unknown His tory furosemide 40 mg tablet 80 mg PO DAILY 01/06/25 Unknown Hi story Allergy/AdvReac Type Severity Reaction Status Date / Time SHARON Inhibitors AdvReac Hypotensive Verified 01/06/25 13:08 Family History Mother , AGe 71 Congestive heart failure Sister , Age 66 CAD (coronary artery disease) Breast cancer S/P CABG (coronary artery bypass graft) Surgical History H/O bilateral inguinal hernia repair H/O bilateral hip replacements H/O right coronary artery stent placement (06/13/10) Social History household members: spouse housing: house current occupational status: retired Smoking Status: Never smoker ROS ROS ED Constitutional Constitutional ED: Denies chills, fever(s) or sweats ENT ENT ED: Denies sore throat Cardiovascular Cardiovascular: Reports leg edema; Denies chest pain, palpitations or racing heartbeat Respiratory/Chest Respiratory/Chest: Reports dyspnea and dyspnea on exertion; Denies cough Gastrointestinal Gastrointestinal: Denies abdominal pain, diarrhea, nausea or vomiting Genitourinary Genitourinary ED: Denies dysuria, hematuria or urinary frequency Musculoskeletal Musculoskeletal: Denies back pain, extremity pain or neck pain Integumentary Denies rash or wounds Neurologic Neurologic: Denies headache(s), paresthesias or weakness EXAM Physical Exam Const Vital Signs: 01/06/25 13:44 01/06/25 14:13 01/06/25 14:21 Temperature 96.9 F L Temperature Source Temporal Pulse Rate 110 H 82 Respiratory Rate 26 H 24 H Respiratory Effort Respiratory Depth Respiratory Pattern Blood Pressure 124/74 H Blood Pressure Mean 90 Pulse Ox 94 98 100 Oxygen Delivery Method Nasal Cannula Nasal Cannula Nasal Cannula Oxygen Flow Rate (L/min) 6 5 5 01/06/25 14:30 01/06/25 14:35 01/06/25 15:00 Temperature Temperature Source Pulse Rate 80 78 Respiratory Rate 22 H 19 H Respiratory Effort Short of Breath Respiratory Depth Normal Respiratory Pattern Tachypnea Blood Pressure 113/89 H 99/78 Blood Press (more content not included)... Normal [facility] H AND P Exam - Hospitaliston 01-06-2025 H&P Exam - Hospitalist [facility] Medical Records Department [address] [place] [address] H P Exam - Hospitalist 01/06/25 1546 MR#: [id number] Acct: [id number] Name: VALDO GOMEZ Rep #: [id number] : 1935 89 From: Ariela Luciano MD PCP: Dr. Tyra Munoz MD Status:REG ER Location: ED HPI - General General Date of Admission: 01/06/25 Date of Service: 01/06/25 Chief Complaint: Hypoxia HPI Narrative VALDO GOMEZ, is a 89-year-old male history of gout, coronary artery disease, hypertension, A- fib who presented to [facility] ED 01/06/2025 from the cardiology office for evaluation for shortness of breath. Patient noted to have significant leg swelling and had been placed on water pills and thought he was getting better however on arrival to the cardiology office he was 74% on room air and placed on 4 L of O2 at that time and brought to the ED. On arrival to the ED patient afebrile, heart rate 110 with blood pressure 124/74, respiratory rate 26 and pulse ox 94% on 6 L nasal cannula. CBC revealed white blood cell count of 4.4 and hemoglobin of 15.8 with a platelet count of 9 8With a platelet count of 98. CBC with a BUN of 33 and creatinine of 1.51, slightly up from previous but does not meet criteria for TAHIRA. Chest x-ray with cardiomegaly with mild edema, proBNP 9600 and troponin of 65. Patient given IV Lasix for presumed fluid overload/heart failure exacerbation hospitalist contacted for admission. Patient evaluated with multiple family members at bedside. Reportedly since October patient's had increased shortness of breath on exertion and increased swelling in lower extremities, he was seen on 07 December and diagnosed with A-fib and placed on Lasix and Eliquis, PCP increased his Lasix 12 days ago and he thought he was doing better however was found to be hypoxic at the cardiology office and sent to the ED. He reports no shortness of breath while resting in the ED and that his swelling is better than it was. Denies any chest pain. Only other complaint is that for at least a week his left eye has had some change in depth perception and he feels like objects are closer than they seem when he reaches for them, closing his left eye resolves this. [facility] Medical History (Updated 01/06/25 @ 15:[address] Bret Victoria, DO) Atherosclerosis of coronary artery of [place] heart without angina pectoris Gout Hyperlipidemia Hypertension Old inferior wall myocardial infarction Home Medications ???Medication ???Instructions ???Recorded ???Last Taken ???Type allopurinol 300 mg tablet 300 mg PO DAILY 09/13/17 12/07/24 History amoxicillin 500 mg tablet 2,000 mg PO DAILY PRN DENTIST 08/18 04/03 Unknown History bimatoprost 0.01 % eye drops 1 drp ophthalmic (eye) QHS 8 12/07/24 History (Clau) carvedilol 3.125 mg tablet (Coreg) 3.125 mg PO BID 09/13/17 5 History pwoqbhvt-ae-qaidv 300 mcg-K 60 1 tab PO DAILY 09/13/17 12/07/24 H istory mcg-lycop 600 mcg-lutein 300 mcg tablet (Centrum Silver Men) niacin 500 mg tablet,extended 500 mg PO QHS 09/13/17 12/06/24 Hi story release 24 hr (Niaspan) nitroglycerin 0.4 mg sublingual 0.4 mg sublingual Q5-15M PRN chest 09/13/17 Unknown History tablet pain pravastatin 20 mg tablet 20 mg PO QHS 09/14/17 12/06/24 His tory brinzolamide 1 %-brimonidine 0.2 % 1 drp ophthalmic (eye) BID 02/10 Unknown History eye drops,suspension (Simbrinza) apixaban 2.5 mg tablet (Eliquis) 2.5 mg PO BID #60 tabs 12/07/24 Un known Rx lutein 10 mg tablet 10 mg PO DAILY 12/07/24 12/07/24 H istory aspirin 81 mg tablet 81 mg PO QDAY 01/06/25 Unknown His tory furosemide 40 mg tablet 80 mg PO DAILY 01/06/25 Unknown Hi story Allergy/AdvReac Type Severity Reaction Status Date / Time SHARON Inhibitors AdvReac Hypotensive Verified 01/06/25 13:08 Family History Mother , AGe 71 Congestive heart failure Sister , Age 66 CAD (coronary artery disease) Breast cancer S/P CABG (coronary artery bypass graft) Surgical History H/O bilateral hip replacements H/O bilateral inguinal hernia repair H/O right coronary artery stent placement (06/13/10) Social History household members: spouse housing: house current occupational status: retired Smoking Status: Never smoker ROS ROS Narrative General: Denies fever/chills HENT: Denies headache, denies stuffy nose, denies sore throat EYES: Has some vision changes in his left eye for about a week Resp: Denies cough, shortness of breath particularly on exertion Cardiac: Denies chest pain GI: Denies abdominal pain, denies changes in bowel, denies nausea/vomiting : Denies changes in urination Extremity: (more content not included)... Normal [facility] normalized rat io (INR) calculationOrdered By: Bret Victoria on 01-06-2025 INR Coag (Bld) [Relative time] 1.5 {INR} [facility] L499.0042on 01-06-2025 Trop T High Sen 57 ng/L Invalid Interpretation Code <=22 [facility] Comment on above: Result Comment: Crit ical Result(s) Called at: 1728 by: JUDI WICK TO HEATHER GUPTA??Results read back by same. Performed By: #### L 499.0042 ####[facility] [address] [place], [address] L499.0043on 01-06-2025 Trop T High Sen 54 ng/L Invalid Interpretation Code <=22 [facility] Comment on above: Result Comment: Crit ical Result(s) Called at:01/06/2025-1905 by: Bk Escalante to Dean Thompson??Results read back by same. Performed By: #### L 100.0100, L500.4050, M200.1000, L300.3900, L300.4310, L501.4021, L503.6005 #### [facility] [address] [place], [address] L501.4021on 01-06-2025 Trop T High Sen 65 ng/L Invalid Interpretation Code <=22 [facility] Comment on above: Result Comment: Crit ical Result(s) Called at: 1502 by:??JUDI WICK TO RITA SANTOS Results read back by same. Performed By: #### L 100.0100, L500.2500 #### [facility] [address] [place], [address] L503.7505on 01-06-2025 Natriuretic peptide B (Bld) [Mass/Vol] 9617 pg/mL High <=1800 [facility] Comment on above: Result Comment: Hear t Failure Unlikely: < 300 pg/mL Heart Failure Likely < 50 Years: > 450 pg/mL 50-75 Years: > 900 pg/mL >75 Years: > 1800 pg/mL Performed By: #### L 100.0100, L500.2500 #### [facility] [address] [place], [address] Natriuretic peptide.B prohor kaylie N-Terminal [Mass/volume] in Serum or PlasmaOrdered By: Bret Victoria on 01-06-2025 Natriuretic peptide.B prohormone N-Terminal [Mass/Vol] 9617 pg/mL High <1800 [facility] Comment on above: Heart Failure Unlike ly: < 300 pg/mLHeart Failure Likely< 50 Years: > 450 pg/mL50-75 Years: > 900 pg/mL>75 Years: > 1800 pg/mL Partial Thromboplast Timeon 01-06-2025 aPTT Coag (Bld) [Time] 41.0 s High 24.1-36.2 [facility] Comment on above: Performed By: #### L 100.0100, L500.2500 #### [facility] [address] [place], [address] Platelet estimateOrdered By: Bret Victoria on 01-06-2025 Platelets LM Ql (Bld) SLT DEC ADEQ [facility] Prothrombin Time w/INRon INR Coag (PPP) [Relative time] 1.5 {INR} Normal [facility] Comment on above: Performed By: #### L 100.0100, L500.2500 #### [facility] [address] [place], [address] PT Coag (PPP) [Time] 18.1 s High 11.7-14.[address] [facility] Comment on above: Performed By: #### L 100.0100, L500.2500 #### [facility] [address] [place], [address] Prothrombin timeOrdered By: Bret Victoria on 01-06-2025 PT Coag (PPP) [Time] 18.1 s High 11.7-14.[address] [facility] Troponin T.cardiac [Mass/vol ume] in Serum or Plasma by High sensitivity methodOrdered By: Bret Victoria on 01-06-2025 Troponin T.cardiac High sensitivity method [Mass/Vol] 57 ng/L High <22 [facility] Comment on above: Critical Result(s) C alled at: 1728 by: JUDI GUPTA Results read back by same. Troponin T.cardiac High sensitivity method [Mass/Vol] 54 ng/L High <22 [facility] Comment on above: Critical Result(s) C smith at:01/06/2025-1905 by: Bk Escalante to Dean Thompson Results read back by same. Troponin T.cardiac High sensitivity method [Mass/Vol] 65 ng/L High <22 [facility] Comment on above: Delta: 46 on 5-1330Critical Result(s) Called at: 1502 by: JUDI WICK TO RITA SANTOS Results read back by same. CNOVon 12-27-2024 CNOV Office Visit (FAMPWS ) LUZMARIAVALDO Willis ([id number]) 1935 M Date Time Provider Department 12/27/24 10:00 AM TYRA MUNOZ [facility] During your visit today, we recorded the following information about you: Pulse Respiration Blood pressure 72/minute 18/minute 120/74 Tyra Munoz MD 12/27/2024 1:54 PM Signed Chief Complaint Patient presents with: Hospital Follow Up HPI Valdoronal Gomez is a 89 year old male who presents here today for ER Follow Up. Pt here today with Spouse and Daughter. Pt was in [facility] ER on 12/07/24 for leg swelling (reports in scanned docs). Pt was sent to ED after seeing Heather Blanco CNP in the office,found to be in A fib, which was a new finding. Admission was discussed with pt but he felt he was doing well on his own at home. He was discharged home on Eliquis 2.5 mg 1 pill BID and Lasix 40 mg once daily which was discussed with Dr. Watt. Pt's ASA 81 mg daily was stopped during Hospital visit. Pt has not seen Cardiology for an extended period of time. Since his most recent Hospital visit he now has an upcoming appt scheduled with [facility] on 01/06/25. Is going to run out of new medications that were started that same day, asking for a temporary short course Rx. Edema/SOB - Pt reports that b/l lower leg edema, to mid thigh has varied, with no real improvement. Pt states that his edema is not as bad currently, legs do not feel as tight as the day he went to the ED. May have some had some slight improvement with taking Lasix 40 mg once daily. Reports shortness of breath with exerting himself. Had to stop several times on his walk back to the office. Notes that when he walks to the bathroom, which is only 8 steps, he does get sob. Denies any sob, with lying down, but is not lying flat. Is weighing himself at home daily, notes an increase over the past few months. Has been holding stable at 199 lbs, up until this week with his weight now being 202 lbs. They are measuring his legs as well. Daughter concerned about lack of walking, but pt tells her, when he steps it hurts. Afib - Denies feeling his heart racing, skipping beats, or lightheaded/dizzy. Was started on Eliquis 2.5 mg 1 tab po bid. Past medical history, appointments, medications, allergies reviewed. Previous Medical History PAST MEDICAL HISTORY Diagnosis Date Arthropathy, unspecified, site unspecified CAD (coronary artery disease) Essential hypertension, benign History of recurrent deep vein thrombosis (DVT) 2002 Obesity, unspecified Other premature beats Unspecified hypertensive heart disease Previous Surgical History PAST SURGICAL HISTORY Procedure Laterality Date ARTHRP ACETBLR/PROX FEM PROSTC AGRFT/ALGRFT 02/16 L side ARTHRP ACETBLR/PROX FEM PROSTC AGRFT/ALGRFT 1987 R side CATARACT EXTRACTION HX Bilateral 2014 lens implants PAST SURGICAL HISTORY OF N/A 05/20/2018 Resection Bladder Tumor Transurethral PERC TRANSL COR ANGIO 06/13/2010 Percutaneous Transluminal Coronary Angio Stent REVJ TOT HIP ARTHRP BTH W/WO AGRFT/ALGRFT 07/19 R side RPR 1ST INGUN HRNA AGE 5 YRS/> REDUCIBLE 1996 R side RPR 1ST INGUN HRNA AGE 5 YRS/> REDUCIBLE 08/18 L side TONSILLECTOMY HX age 8 Family History No family history on file. Patient Allergies ALLERGIES Allergen Reactions Sharon Inhibitors Other: See Comments Severe hypotension Vioxx [Rofecoxib] GI Upset Current Medications Current Outpatient Medications on File Prior to Visit Medication Sig nitroglycerin sublingual (NITROSTAT) 0.4 mg SL tablet Dissolve 1 tablet under the tongue as needed. DISSOLVE ON TONGUE FOR CHEST PAIN. IF NO PAIN RELIEF, CALL 911 Amoxicillin 500 mg tablet Take 6 tablets one hour before the dentist and 2 tablets six hours afterward. allopurinol (ZYLOPRIM) 300 mg tablet Take 1 tablet by mouth once daily. pravastatin (PRAVACHOL) 20 mg tablet Take 1 tablet by mouth once daily. carvedilol (COREG) 3.125 mg tablet Take 1 tablet by mouth two times a day. brinzolamide-brimonidine 1%-0.2 % Ophth Susp Use 1 Drop in both eyes two times a day. triamcinolone (KENALOG) 0.025 % cream Apply to affected area two times a day. Right ear. bimatoprost (LUMIGAN) 0.01 % drop ophthalmic drops Use 1 Drop in both eyes daily at bedtime. Lutein 10 mg tab Take 10 mg by mouth once daily. multivitamin tablet Take 1 tablet by mouth once daily. niacin sustained release 500 mg tablet Take 1 tablet by mouth daily at bedtime. Aspirin 81 mg Tab Take 81 mg by mouth once daily. No current facility-administered medications on file prior to visit. Social History Social History Tobacco Use Smoking status: Never Smokeless tobacco: Never Vaping Use Vaping status: Never Used Substance Use Topics Alcohol use: No Drug use: No EXAM: BP 120/74 (BP Site: Right Arm, BP Position: Sitting, BP Cuff Size: Regular Hermes (more content not included)... Normal [facility] Aaron 12-23-2024 [facility] VALDO GOME[facility] ([id number]) 1935 M Date Time Provider Department 12/23/24 TYRA MUNOZ [facility] During your visit today, we recorded the following information about you: Jody Corrla 12/23/2024 4:43 PM Signed Daughter, Susan, demanded PSS send a request to PCP's office to have them ask other patient's already scheduled in the 9:00 am hour on 12/27/24 to move to another day. She is wanting to have patient's appointment moved up in order to be closer to when her mother begins physical therapy so they end around similar times. PH. [phone] Nicol Machado MA 12/23/2024 5:02 PM Signed Unfortunately this will not occur, due to a pt scheduling inappropriately via [employer] (20 min) for a Medicare Wellness Physical and the 9:00 am already being scheduled since June and also elderly. Unfortunately we can not accommodate this request. She can check and see if there are other openings within the Dept to accommodate her schedule better. CATA Parmar Stephanie 12/24/2024 8:41 AM Signed Spoke with patient's daughter and advised that appointment can't be moved. Patient's daughter is ok w/ keeping the appointment at that time. Roya Zacarias Allergies As of Date: 12/23/2024 Noted Allergy Reaction SHARON INHIBITORS 08/22/2013 14 - Other: See Comments Comments: Severe hypotension VIOXX (ROFECOXIB) 11/12/2023 8 - GI Upset Date Reviewed: 12/07/2024 Reviewed by: Shante Rodriges LPN - Fully Assessed Reason for Visit: Appointment [186] Prescriptions as of 12/24/2024 - nitroglycerin sublingual (NITROSTAT) 0.4 mg SL tablet Dissolve 1 tablet under the tongue as needed. DISSOLVE ON TONGUE FOR CHEST PAIN. IF NO PAIN RELIEF, CALL 911 - Amoxicillin 500 mg tablet Take 6 tablets one hour before the dentist and 2 tablets six hours afterward. - allopurinol (ZYLOPRIM) 300 mg tablet Take 1 tablet by mouth once daily. - pravastatin (PRAVACHOL) 20 mg tablet Take 1 tablet by mouth once daily. - carvedilol (COREG) 3.125 mg tablet Take 1 tablet by mouth two times a day. - brinzolamide-brimonidine 1%-0.2 % Ophth Susp Use 1 Drop in both eyes two times a day. - triamcinolone (KENALOG) 0.025 % cream Apply to affected area two times a day. Right ear. - bimatoprost (LUMIGAN) 0.01 % drop ophthalmic drops Use 1 Drop in both eyes daily at bedtime. - Lutein 10 mg tab Take 10 mg by mouth once daily. - multivitamin tablet Take 1 tablet by mouth once daily. - niacin sustained release 500 mg tablet Take 1 tablet by mouth daily at bedtime. - Aspirin 81 mg Tab Take 81 mg by mouth once daily. Meds Comments as of 05/14/2023: Prednisone 10 mg whenever has a gout flare up. On another eye drop. Problem List As Of Date 12/23/2024 Noted Resolved ASA CLASS II [1001] 02/28/2003 Obesity, unspecified [E66.9] 05/27/2005 09/02/2011 GENERAL OSTEOARTHROSIS [M15.9] 05/27/2005 11/19/2006 BENIGN HYPERTENSION [I10] 05/27/2005 CHRONIC KIDNEY DISEASE, STAGE I [N18.1] 11/19/2006 11/21/2008 OSTEOARTHROS NOS-UNSPEC [M19.90] 11/19/2006 CHRONIC KIDNEY DISEASE, STAGE III (MOD) [N18.30]11/21/2008 CAD (coronary artery disease) [I25.10] 08/30/2010 Gout [M10.9] 10/11/2010 Pure hypercholesterolemia [E78.00] 09/02/2011 Bladder mass [N32.89] 05/17/2018 Gross hematuria [R31.0] 05/17/2018 Malignant neoplasm of urinary bladder, unspecif*05/14/2023 11/12/2023 Encounter Status:Closed by ROYA ZACARIAS on 12/24/24 Normal [facility] Absolute lymphocyte countOrd ered By: Colin Lee on 12-07-2024 Lymphocytes Auto (Unsp spec) [#/Vol] 0.70 10*3/uL Low 0.83-4.51 [facility] Absolute neutrophil countOrd ered By: Colin Lee on 12-07-2024 Neutrophils (Bld) [#/Vol] 3.2 10*3/uL 2.0-7.7 [facility] Anion gap in Serum or Plasma Ordered By: Colin Lee on 12-07-2024 Anion gap [Moles/Vol] 10 mmol/L 5-15 [facility] Automated lymphocyte count a s percentage of total leukocytesOrdered By: Colin Lee on 12-07-2024 Lymphocytes/100 WBC Auto (Unsp spec) 15.7 % Low 19-41 [facility] BUN/creatinine ratioOrdered By: Colin Lee on 12-07-2024 Urea nitrogen/Creatinine [Mass ratio] 25.0 mg/mg High 10-20 [facility] Basic Metabolic Profile (BMP )on 12-07-2024 BUN/CRE 25.0 RATIO High 10- [facility] Comment on above: Performed By: #### L 100.0100, L503.7505, L501.4021, L500.2500 ####[facility] [address] [place], [address] Calcium [Mass/Vol] 8.8 mg/dL Normal 7.6-11.0 [facility] Comment on above: Performed By: #### L 100.0100, L503.7505, L501.4021, L500.2500 ####[facility] [address] [place], [address] Chloride [Moles/Vol] 104 mmol/L Normal 98-[address] [facility] Comment on above: Performed By: #### L 100.0100, L503.7505, L501.4021, L500.2500 ####[facility] [address] [place], [address] CO2 [Moles/Vol] 21.5 mmol/L Normal 21.0-32.0 [facility] Comment on above: Performed By: #### L 100.0100, L503.7505, L501.4021, L500.2500 ####[facility] [address] [place], [address] Creatinine [Mass/Vol] 1.35 mg/dL High 0.70-1.20 [facility] Comment on above: Performed By: #### L 100.0100, L503.7505, L501.4021, L500.2500 ####[facility] [address] [place], [address] GAP 10 Normal 5-15 [facility] Comment on above: Performed By: #### L 100.0100, L503.7505, L501.4021, L500.2500 ####[facility] [address] [place], [address] GFR/1.73 sq M.predicted among non-blacks MDRD (S/P/Bld) [Vol rate/Area] 50 mL/min/{1.73_m2} Low >60 [facility] Comment on above: Result Comment: mL/m in/1.73m2 CKD-EPI Creatinine Equation (2020) Performed By: #### L 100.0100, L503.7505, L501.4021, L500.2500 ####[facility] [address] [place], [address] Glucose [Mass/Vol] 143 mg/dL High 70-99 [facility] Comment on above: Performed By: #### L 100.0100, L503.7505, L501.4021, L500.2500 ####[facility] [address] [place], [address] Potassium [Moles/Vol] 5.3 mmol/L High 3.3-5.1 [facility] Comment on above: Result Comment: Hemo lysis present, Results??could be affected. ?? Performed By: #### L 100.0100, L503.7505, L501.4021, L500.2500 ####[facility] [address] [place], [address] Sodium [Moles/Vol] 135 mmol/L Normal 133-145 [facility] Comment on above: Performed By: #### L 100.0100, L503.7505, L501.4021, L500.2500 ####[facility] [address] [place], [address] Urea nitrogen [Mass/Vol] 34 mg/dL High 4-19 [facility] Comment on above: Performed By: #### L 100.0100, L503.7505, L501.4021, L500.2500 ####[facility] [address] [place], [address] Basophil percentageOrdered B y: Colin Lee on 12-07-2024 Basophils/100 WBC (Bld) 0.7 % 0-1 [facility] CBC W/Diff, Automatedon 11-16 Absolute Lymph 0.70 X10 3/uL Low 0.83-4.51 [facility] Comment on above: Performed By: #### L 100.0100, L503.7505, L501.4021, L500.2500 ####[facility] [address] [place], [address] Absolute Neut 3.2 X10 3/uL Normal 2.0-7.7 [facility] Comment on above: Performed By: #### L 100.0100, L503.7505, L501.4021, L500.2500 ####[facility] [address] [place], [address] Basophils/100 WBC (Bld) 0.7 % Normal 0-1 [facility] Comment on above: Performed By: #### L 100.0100, L503.7505, L501.4021, L500.2500 ####[facility] [address] [place], [address] Eosinophils/100 WBC (Bld) 0.9 % Normal 0-5 [facility] Comment on above: Performed By: #### L 100.0100, L503.7505, L501.4021, L500.2500 ####[facility] [address] [place], [address] Erythrocyte distribution width (RBC) [Ratio] 14.6 % Normal 11.6-14.6 [facility] Comment on above: Performed By: #### L 100.0100, L503.7505, L501.4021, L500.2500 ####[facility] [address] [place], [address] Hematocrit (Bld) [Volume fraction] 38.8 % Low 40-54 [facility] Comment on above: Performed By: #### L 100.0100, L503.7505, L501.4021, L500.2500 ####[facility] [address] [place], [address] Hemoglobin (Bld) [Mass/Vol] 12.7 g/dL Low 13.0-16.5 [facility] Comment on above: Performed By: #### L 100.0100, L503.7505, L501.4021, L500.2500 ####[facility] [address] [place], [address] IG% 0.400 Normal 0.0-0.9 [facility] Comment on above: Result Comment: IG% - Immature Granulocytes (promyelocytes, myelocytes and metamyelocytes) > 1% indicates that a LEFT SHIFT is Present. Performed By: #### L 100.0100, L503.7505, L501.4021, L500.2500 ####[facility] [address] [place], [address] Lymphocytes/100 WBC (Bld) 15.7 % Low 19-41 [facility] Comment on above: Performed By: #### L 100.0100, L503.7505, L501.4021, L500.2500 ####[facility] [address] [place], [address] MCH (RBC) [Entitic mass] 36.7 pg High 27.0-32.0 [facility] Comment on above: Performed By: #### L 100.0100, L503.7505, L501.4021, L500.2500 ####[facility] [address] [place], [address] MCHC (RBC) [Mass/Vol] 32.7 g/dL Normal 32-36 [facility] Comment on above: Performed By: #### L 100.0100, L503.7505, L501.4021, L500.2500 ####[facility] [address] [place], [address] MCV (RBC) [Entitic vol] 112.1 fL High 80-94 [facility] Comment on above: Performed By: #### L 100.0100, L503.7505, L501.4021, L500.2500 ####[facility] [address] [place], [address] Monocytes/100 WBC (Bld) 11.7 % High 0-10 [facility] Comment on above: Performed By: #### L 100.0100, L503.7505, L501.4021, L500.2500 ####[facility] [address] [place], [address] Neutrophils/100 WBC (Bld) 70.6 % High 47-70 [facility] Comment on above: Performed By: #### L 100.0100, L503.7505, L501.4021, L500.2500 ####[facility] [address] [place], [address] Nucleated RBC (Bld) [#/Vol] 0 10*3/uL Normal 0-5 [facility] Comment on above: Performed By: #### L 100.0100, L503.7505, L501.4021, L500.2500 ####[facility] [address] [place], [address] Platelet mean volume (Bld) [Entitic vol] 12.8 fL High 6.2-12.0 [facility] Comment on above: Performed By: #### L 100.0100, L503.7505, L501.4021, L500.2500 ####[facility] [address] [place], [address] Platelets (Bld) [#/Vol] 100 10*3/uL Low 150-450 [facility] Comment on above: Performed By: #### L 100.0100, L503.7505, L501.4021, L500.2500 ####[facility] [address] [place], [address] RBC (Bld) [#/Vol] 3.46 10*6/uL Low 4.6-6.2 [facility] Comment on above: Performed By: #### L 100.0100, L503.7505, L501.4021, L500.2500 ####[facility] [address] [place], [address] RDW SD 60.1 fl High 35.1-43.9 [facility] Comment on above: Performed By: #### L 100.0100, L503.7505, L501.4021, L500.2500 ####[facility] [address] [place], [address] WBC (Bld) [#/Vol] 4.5 10*3/uL Normal 4.4-11.0 [facility] Comment on above: Performed By: #### L 100.0100, L503.7505, L501.4021, L500.2500 ####[facility] [address] [place], [address] CNOVon 12-07-2024 CNOV Office Visit (FAMPWS ) VALDO GOMEZ ([id number]) 1935 M Date Time Provider Department 12/07/24 11:20 AM HEATHER BLANCO During your visit today, we recorded the following information about you: Temperature Pulse Respiration Blood pressure 96.6 degrees 75/minute 26/minute 106/64 Weight 94.7 kg Heather Blanco APRN.JUNIOR MECHANICAL ENGINEER 12/07/2024 12:12 PM Signed 12/07/2024 Patient presents with: Breathing Problem: SOB with activity and bilateral lower extremity swelling SUBJECTIVE: This is a 89 year old, accompanied by , that is here today for Above Complaints. Rojas noticed increasing weight over the last coupleo of months. Increwased leg swelling. Feels SOB with exertion. Denies hx of CHF, orthopnea, dyspnea, or palpitations PAST MEDICAL HISTORY Diagnosis Date Arthropathy, unspecified, site unspecified CAD (coronary artery disease) Essential hypertension, benign History of recurrent deep vein thrombosis (DVT) 2002 Obesity, unspecified Other premature beats Unspecified hypertensive heart disease ALLERGIES Sharon Inhibitors and Vioxx [Rofecoxib] MEDICATIONS Current Outpatient Medications Medication Sig nitroglycerin sublingual (NITROSTAT) 0.4 mg SL tablet Dissolve 1 tablet under the tongue as needed. DISSOLVE ON TONGUE FOR CHEST PAIN. IF NO PAIN RELIEF, CALL 911 Amoxicillin 500 mg tablet Take 6 tablets one hour before the dentist and 2 tablets six hours afterward. allopurinol (ZYLOPRIM) 300 mg tablet Take 1 tablet by mouth once daily. pravastatin (PRAVACHOL) 20 mg tablet Take 1 tablet by mouth once daily. carvedilol (COREG) 3.125 mg tablet Take 1 tablet by mouth two times a day. brinzolamide-brimonidine 1%-0.2 % Ophth Susp Use 1 Drop in both eyes two times a day. triamcinolone (KENALOG) 0.025 % cream Apply to affected area two times a day. Right ear. bimatoprost (LUMIGAN) 0.01 % drop ophthalmic drops Use 1 Drop in both eyes daily at bedtime. Lutein 10 mg tab Take 10 mg by mouth once daily. multivitamin tablet Take 1 tablet by mouth once daily. niacin sustained release 500 mg tablet Take 1 tablet by mouth daily at bedtime. Aspirin 81 mg Tab Take 81 mg by mouth once daily. No current facility-administered medications for this visit. Medications and allergies reviewed by this provider. SOCIAL HISTORY Social History Tobacco Use Smoking status: Never Smokeless tobacco: Never Vaping Use Vaping status: Never Used Substance Use Topics Alcohol use: No Drug use: No REVIEW OF SYSTEMS All other reviewed and negative other than HPI. OBJECTIVE: BP 106/64 Pulse 75 Temp (!) 35.9 ?C (96.6 ?F) Resp 26 Wt 94.7 kg (208 lb 12.8 oz) SpO2 98% BMI 30.83 kg/m? . Vital signs reviewed by this provider. APPEARANCE Well appearing, alert, in no acute distress, well-hydrated, well nourished. EYES PERRLA, conjunctiva and sclera normal. HEART irregularly irregular LUNG Right posteriorly diminished throughout. Left posteriorly CTA EXTREMITIES 1+ pitting BLE SKIN Skin color, texture, turgor normal, no suspicious rashes or lesions to exposed skin DTaP,Tdap,Td Vaccine(2 - Td or Tdap) due on 09/02/2021 RSV Vaccine(1 - 1-dose 75+ series) due on 05/16/2025 Covid-19 Vaccine(2023- season) due on 12/12/2024 Depression Screening due on 05/16/2025 Anxiety Screening due on 05/16/2025 LDL Cholesterol due on 11/02/2025 Diabetes Screening due on 11/03/2027 Influenza Vaccine Completed Advance Directive Discussion Completed Shingrix Vaccine Completed Pneumococcal Vaccine: 50+ Completed ASSESSMENT/PLAN: 1. SOB (shortness of breath) - ICD9: 786.05, ICD10: R06.02 (primary diagnosis) - concern for acute CHF - discussed with patient the need for evaluation in ER, agreeable to go to ER - offered ambulance however patient's daughter is here and can drive him - ECG COMPLETE - report called to Dr. Stevenson at [facility] 2. Bilateral leg edema - ICD9: 782.3, ICD10: R60.0 -plan as in #1 - ECG COMPLETE 3. Weight gain - ICD9: 783.1, ICD10: R63.5 - plan as in #1 - ECG COMPLETE 4. Abnormal EKG - ICD9: 794.31, ICD10: R94.31 - EKG showing atrial fib PVCs or aberrantly conducted complexes - copy of EKG sent with patient Heather Blanco APRN.JUNIOR MECHANICAL ENGINEER Prescription instructions reviewed with patient as applicable. Patient advised if symptoms do not improve or if symptoms worsen sooner, to contact their primary care physician. Potential red flag symptoms discussed with the patient. Reviewed appropriate action plan to take if red flag symptoms occur. Patient agreeable to treatment plan. Medical Decision Making: Problems: Moderate: Acute illness with systemic symptoms Data: Unique test(s) ordered: 1 Risk: Moderate: Moderate risk from testing/treatment Medical Decision Making Level: 4 - Moderate Allergies As of Date: 12/07/2024 Noted Allergy Reactio (more content not included)... Normal [facility] Carbon dioxide, total [Moles /volume] in Central venous bloodOrdered By: Colin Lee on 12-07-2024 CO2 [Moles/Vol] 21.5 mmol/L 21.0-32.0 [facility] Chest PA and Lateralon 12-07 Chest PA and Lateral [facility] [address] [place] [address] Chest PA and Lateral MR#: [id number] Acct: [id number] Name: VALDO GOMEZ Rep #: [id number] : 1935 M 89 From: Mele morin MD PCP: Dr. Tyra Munoz MD Status: REG ER Study: Chest PA and Lateral Date of Exam: 12/07/24 Exam# [id number] Ordering Dr: Colin Lee MD PROCEDURE: CHEST PA AND LATERAL 12/07/2024 REASON FOR EXAM: DYSPNEA TECHNIQUE: Frontal and lateral views of the chest. COMPARISON: No priors available. FINDINGS: Hardware: EKG electrodes are seen. Heart: Heart size is mildly enlarged. Mediastinum: Calcification of the aortic arch. Lungs: Elevation of the right hemidiaphragm. Bibasilar atelectasis. Mild vascular congestion and CHF. Blunting of the costophrenic angles posteriorly. Bones: Degenerative changes are identified within the thoracic spine. Degenerative changes of both shoulder joints. RAD/Chest PA and Lateral IMPRESSION: Mild cardiomegaly. Vascular congestion and mild CHF with bibasilar atelectasis and blunting of both costophrenic angles posteriorly. Reading Location: [place] [address] CC: Dr. Colin Lee MD; Dr. Tyra Munoz MD [employer] Attendant: Signed Normal [facility] Chloride assayOrdered By: Coco Lee on 12-07-2024 Chloride [Moles/Vol] 104 mmol/L 98-[address] [facility] HIL04rm 12-07-2024 ECG01 Ventricular Rate : 7 1 BPM QRS Duration : 152 ms Q-T Interval : 446 ms QTC Calculation(Bazett) : 484 ms Calculated R Kent : 221 degrees Calculated T Kent : -10 degrees ATRIAL FIBRILLATION WITH PREMATURE VENTRICULAR COMPLEXES COMPLETE LEFT BUNDLE BRANCH BLOCK ABNORMAL ECG Confirmed by MD PALACIOS QARAB ([id number]) on 12/09/2024 8:22:08 AM NAME : DOMINGO GOMEZN PID : [id number] : 1935 Gender : Male Race : ORD : Procedure Date : Dec 07 2024 11:52:33 Edit Date : Dec 09 2024 08:22:09 Diagnosis: ATRIAL FIBRILLATION WITH PREMATURE VENTRICULAR COMPLEXES COMPLETE LEFT BUNDLE BRANCH BLOCK ABNORMAL ECG Confirmed by MD PALACIOS QARAB ([id number]) on 12/09/2024 8:22:08 AM Test Reason : Location : 136 : [place] Overread By : MD PALACIOS QARAB Edited By : MD PALACIOS QARAB Referred By : , Acquired by : [id number], Lashae [facility] Emergency Department Summary on 12-07-2024 Emergency Department Summary [facility] Medical Records Department [address] [place] [address] Emergency Department Summary 12/07/24 MR#: [id number] Acct: [id number] Name: CHRISTOPHER GOMEZMERCY Willis Rep #: [id number] : 1935 89 From: Colin Lee MD PCP: Dr. Tyra Munoz MD Status:REG ER Location: ED HPI History of Present Illness Chief Complaint: Edema Informant: patient and PCP Narrative Narrative: 89-year-old male sent over from primary care office because of edema in the legs that has been present for several weeks according to the patient, 25 pound weight gain over the past 3-4 months, and dyspnea with exertion. He denies orthopnea. No chest pain. He has been able to ambulate. He had a remote stent placed 14 years ago or so, he denies a history of CHF that he knows of. In the office they said he appeared to be in A-fib and if so that would be new for him. Patient denies having any palpitations. Patient states he had a checkup 3 weeks ago in the office and discussed the leg edema with his doctor, they told him to watch it and they did not change any of his medications. [facility] Medical History (Updated 12/07/24 @ 15:[address] Colin Lee MD) Gout Atherosclerosis of coronary artery of [place] heart without angina pectoris Hypertension Hyperlipidemia Old inferior wall myocardial infarction Home Medications ???Medication ???Instructions ???Recorded ???Last Taken ???Type allopurinol 300 mg tablet 300 mg PO DAILY 09/13/17 12/07/24 History amoxicillin 500 mg tablet 2,000 mg PO DAILY PRN DENTIST 08/18 04/03 Unknown History bimatoprost 0.01 % eye drops 1 drp ophthalmic (eye) QHS 8 12/07/24 History (Clau) carvedilol 3.125 mg tablet (Coreg) 3.125 mg PO BID 09/13/17 5 History lbutcvpm-cl-nvdbe 300 mcg-K 60 1 tab PO DAILY 09/13/17 12/07/24 H istory mcg-lycop 600 mcg-lutein 300 mcg tablet (Centrum Silver Men) niacin 500 mg tablet,extended 500 mg PO QHS 09/13/17 12/06/24 Hi story release 24 hr (Niaspan) nitroglycerin 0.4 mg sublingual 0.4 mg sublingual Q5-15M PRN chest 09/13/17 Unknown History tablet pain pravastatin 20 mg tablet 20 mg PO QHS 09/14/17 12/06/24 His tory brinzolamide 1 %-brimonidine 0.2 % 1 drp ophthalmic (eye) BID 02/10 Unknown History eye drops,suspension (Simbrinza) apixaban 2.5 mg tablet (Eliquis) 2.5 mg PO BID #60 tabs 12/07/24 Un known Rx furosemide 40 mg tablet 40 mg PO DAILY #30 tabs 12/07/24 U nknown Rx lutein 10 mg tablet 10 mg PO DAILY 12/07/24 12/07/24 H istory Allergy/AdvReac Type Severity Reaction Status Date / Time SHARON Inhibitors AdvReac Hypotensive Verified 12/07/24 12:43 Family History Mother , AGe 71 Congestive heart failure Sister , Age 66 CAD (coronary artery disease) Breast cancer S/P CABG (coronary artery bypass graft) Surgical History H/O bilateral inguinal hernia repair H/O bilateral hip replacements H/O right coronary artery stent placement (06/13/10) Social History Smoking Status: Never smoker ROS ROS ED Constitutional Constitutional ED: Denies chills or fever(s) Eyes Eyes: Denies change in vision or diplopia ENT ENT ED: Denies rhinorrhea or sore throat Cardiovascular Cardiovascular: Reports leg edema; Denies chest pain or palpitations Respiratory/Chest Respiratory/Chest: Reports dyspnea and dyspnea on exertion; Denies cough Gastrointestinal Gastrointestinal: Denies abdominal pain, diarrhea, nausea or vomiting Genitourinary Genitourinary ED: Denies dysuria or hematuria Musculoskeletal Musculoskeletal: Denies back pain or neck pain Integumentary Denies abscess or rash Neurologic Neurologic: Denies headache(s), paresthesias or weakness Psychiatric Psychiatric: Denies anxiety or suicidal thoughts EXAM Physical Exam Const Vital Signs: 12/07/24 12:42 12/07/24 13:17 12/07/24 13:17 Temperature 97.8 F Temperature Source Oral Pulse Rate 78 Respiratory Rate 18 Respiratory Effort Short of Breath Normal Short of Breath Respiratory Depth Normal Respiratory Pattern Normal Normal Blood Pressure 107/67 Blood Pressure Mean 80 Pulse Ox 100 Oxygen Delivery Method Room Air Room Air Oxygen Flow Rate (L/min) 12/07/24 13:34 12/07/24 15:00 12/07/24 16:14 Temperature Temperature Source Pulse Rate 65 65 Respiratory Rate 18 18 Respiratory Effort Respiratory Depth Respiratory Pattern Blood Pressure 118/80 121/81 H Blood Pressure Mean 92 94 Pulse Ox 99 94 Oxygen Delivery Method Nasal Cannula Room Air Room Air Oxygen Flow Rate (L/min) 2 12/07/24 16:15 (more content not included)... Normal [facility] Eosinophil percentageOrdered By: Colin Lee on 12-07-2024 Eosinophils/100 WBC (Bld) 0.9 % 0-5 [facility] Erythrocyte distribution wid th ratioOrdered By: Colin Lee on 12-07-2024 Erythrocyte distribution width (RBC) [Ratio] 14.6 % 11.6-14.6 [facility] Erythrocyte distribution wid th standard deviationOrdered By: Colin Lee on 12-07-2024 Erythrocyte distribution width (RBC) [Ratio] 60.1 fl High 35.1-43.9 [facility] Glomerular filtration rate ( GFR) estimation/1.73 sq m using serum, plasma, or whole bOrdered By: Colin Lee on 12-07-2024 GFR/1.73 sq M.predicted among non-blacks MDRD (S/P/Bld) [Vol rate/Area] 50 mL/min/{1.73_m2} Low >60 [facility] Comment on above: mL/min/1.73m2 CKD-EP I Creatinine Equation (2020) Hematocrit Auto (Bld) [Volum e fraction]Ordered By: Colin Lee on 12-07-2024 Hematocrit (Bld) [Volume fraction] 38.8 % Low 40-54 [facility] Hemoglobin measurementOrdere d By: Colin Lee on 12-07-2024 Hemoglobin (Bld) [Mass/Vol] 12.7 g/dL Low 13.0-16.5 [facility] Immature granulocytes/100 WB C Auto (Bld)Ordered By: Colin Lee on 12-07-2024 Immature granulocytes/100 WBC (Bld) 0.400 % 0.0-0.9 [facility] Comment on above: IG% - Immature Granu locytes (promyelocytes, myelocytes and metamyelocytes) > 1% indicates that a LEFT SHIFT is Present. L499.0042on 12-07-2024 Trop T High Sen 40 ng/L High <=22 [facility] Comment on above: Result Comment: Hemo lysis present, Results??could be affected. ?? Performed By: #### L 100.0100, L500.4050, M200.1000, L300.3900, L300.4310, L501.4021, L503.6005 #### [facility] [address] [place], [address] L499.0043on 12-07-2024 Trop T High Sen Normal <=22 [facility] Comment on above: Result Comment: Canc elled via OM: Order cancelled - Patient discharged Performed By: #### L 100.0100, L500.4050, M200.1000, L300.3900, L300.4310, L501.4021, L503.6005 #### [facility] [address] [place], [address] L501.4021on 12-07-2024 Trop T High Sen 46 ng/L High <=22 [facility] Comment on above: Result Comment: Hemo lysis present, Results??could be affected. ?? Performed By: #### L 100.0100, L503.7505, L501.4021, L500.2500 ####[facility] [address] [place], [address] L503.7505on 12-07-2024 Natriuretic peptide B (Bld) [Mass/Vol] 7289 pg/mL High <=1800 [facility] Comment on above: Result Comment: Hear t Failure Unlikely: < 300 pg/mL Heart Failure Likely < 50 Years: > 450 pg/mL 50-75 Years: > 900 pg/mL >75 Years: > 1800 pg/mL Performed By: #### L 100.0100, L503.7505, L501.4021, L500.2500 ####[facility] [address] [place], [address] MCV (mean corpuscular volume ) determinationOrdered By: Colin Lee on 12-07-2024 MCV (RBC) [Entitic vol] 112.1 fL High 80-94 [facility] Mean corpuscular hemoglobin (MCH) determinationOrdered By: Colin Lee on 12-07-2024 MCH (RBC) [Entitic mass] 36.7 pg High 27.0-32.0 [facility] Mean corpuscular hemoglobin concentration (MCHC) determinationOrdered By: Colin Lee on 12-07-2024 MCHC (RBC) [Mass/Vol] 32.7 g/dL 32-36 [facility] Mean platelet volume determi nationOrdered By: Colin Lee on 12-07-2024 Platelet mean volume (Bld) [Entitic vol] 12.8 fL High 6.2-12.0 [facility] Monocyte percentageOrdered B y: Colin Lee on 12-07-2024 Monocytes/100 WBC (Bld) 11.7 % High 0-10 [facility] Natriuretic peptide.B prohor kaylie N-Terminal [Mass/volume] in Serum or PlasmaOrdered By: Colin Lee on 12-07-2024 Natriuretic peptide.B prohormone N-Terminal [Mass/Vol] 7289 pg/mL High <1800 [facility] Comment on above: Heart Failure Unlike ly: < 300 pg/mLHeart Failure Likely< 50 Years: > 450 pg/mL50-75 Years: > 900 pg/mL>75 Years: > 1800 pg/mL Neutrophil percentageOrdered By: Colin Lee on 12-07-2024 Neutrophils/100 WBC (Bld) 70.6 % High 47-70 [facility] Nucleated red blood cell per centageOrdered By: Colin Lee on 12-07-2024 Nucleated RBC/100 WBC (Bld) [Ratio] 0 % 0-5 [facility] Platelet countOrdered By: Coco Lee on 12-07-2024 Platelets (Bld) [#/Vol] 100 10*3/uL Low 150-450 [facility] Potassium measurement (mass/ volume)Ordered By: Colin Lee on 12-07-2024 Potassium (Unsp spec) [Mass/Vol] 5.3 mmol/L High 3.3-5.1 [facility] Comment on above: Hemolysis present, R esults could be affected. RBC Auto (Bld) [#/Vol]Ordere d By: Colin Lee on 12-07-2024 RBC (Bld) [#/Vol] 3.46 10*6/uL Low 4.6-6.2 [facility] Serum creatinine measurement (mass/volume)Ordered By: Colin Lee on 12-07-2024 Creatinine [Mass/Vol] 1.35 mg/dL High 0.70-1.20 [facility] Serum glucose measurement (m ass/volume)Ordered By: Colin Lee on 12-07-2024 Glucose [Mass/Vol] 143 mg/dL High 70-99 [facility] Serum or plasma calcium shayy urement (mass/volume)Ordered By: Colin Lee on 12-07-2024 Calcium [Mass/Vol] 8.8 mg/dL 7.6-11.0 [facility] Serum or plasma urea nitroge n measurement (mass/volume)Ordered By: Colin Lee on 12-07-2024 Urea nitrogen [Mass/Vol] 34 mg/dL High 4-19 [facility] Sodium levelOrdered By: Zeb Lee on 12-07-2024 Sodium [Moles/Vol] 135 mmol/L 133-145 [facility] Troponin T.cardiac [Mass/vol ume] in Serum or Plasma by High sensitivity methodOrdered By: Colin Lee on 12-07-2024 Troponin T.cardiac High sensitivity method [Mass/Vol] 40 ng/L High <22 [facility] Comment on above: Hemolysis present, R esults could be affected. Troponin T.cardiac High sensitivity method [Mass/Vol] 46 ng/L High <22 [facility] Comment on above: Hemolysis present, R esults could be affected. White blood cell (WBC) count Ordered By: Colin Lee on 12-07-2024 WBC (Bld) [#/Vol] 4.5 10*3/uL 4.4-11.0 [facility] [id number] 11-29-2024 [id number] O ID: [id number] Author: STEFFEN JAQUEZ PT Service: ? Author Type: Physical Therapist Type: [id number] Filed: 11/29/2024 18:49 Note Text: [facility] Physical Therapy Plan of Care Certification Patient Name: Valdo Gomez : 1935 [facility] #: [id number] Date: 11/29/2024 To: Tyra Munoz MD From Therapist: Steffen Jaquez PT RE: Patient Certification/ Recertification Your review, approval and electronic signature are required in order to comply with Payor: [facility] MEDICARE / Plan: [facility] MEDIC[facility] HMO / Product Type: HMO / regulations. The identified Physical Therapy PLAN OF CARE for the patient is as follows: R53.81 Physical deconditioning R26.9 Gait abnormality PLAN OF CARE: Assessment: Valdo Gomez presents with diagnosis of gait difficulty and deconditioning that interferes with rising from a chair, standing, walking, stair negotiation . The patient presents with impairments in ADL's, balance, gait, independence in exercise, overall function, and strength. PROMIS? (Patient-Reported Outcomes Measurement Information System) scores were reviewed and identified as a rehabilitation concern. Prognosis for therapy is Good due to: current objective clinical presentation, good support system/ coping skills. The patient will benefit from skilled therapy services to meet the goals established for this plan of care as noted below. Assessment Fall Risk : Complex at risk Goals for Episode of Care: established 11/29/24 Patient will report no falls. Improve score on Timed Up and Go Test to 9-11 seconds to reflect decreased fall risk. Improve score on 30 Second Chair Stand to 8 repetitions to reflect decreased fall risk. Improve performance on 4 Stage Balance Test to 10 second tandem to reflect decreased fall risk. [place] in home exercise program including cardiovascular exercise. Patient will demonstrate independent and proper use of assisstive device to allow for improved walking quality and safety therefore reducing the risk of falls. Patient Goals: improve balance and functional mobility Time Frame for Goals and Treatment : 01/24/25 Planned Interventions, Frequency, and Duration: Current Frequency: 2x/week Duration: 8 weeks Total Number of Visits Planned: 16 Planned Treatment Interventions: Therapeutic exercise (01732), Neuromuscular re-education (62347), Therapeutic activities (16363), Self-detention management (67710), Gait Training (78570), Patient/Family/Caregiver Education, General Conditioning PLAN FOR NEXT VISIT: Review, correct and progress HEP to tolerance seated. Continue with gait training with AD in his environment. Balance training, functional strengthening and conditioning. Patient demonstrates good understanding of plan of care and treatment. The above goals and plan of care were discussed and agreed upon by patient/family. For further details regarding this patient refer to the Physical Therapy electronically documented visit dated 11/29/2024. Provider Attestation I have reviewed the treatment plan for Valdo Alba Gomez, CC# [id number] for the period of 11/29/24 -- 01/24/25, established on 11/29/2024. Signature certifies the need for therapy services. Normal [facility] CNTHERAPYon 11-29-2024 CNTHERAPY OT/PT/Speech Visit ( PTWS) VALDO GOMEZ ([id number]) 1935 M Date Time Provider Department 11/29/24 10:00 AM STEFFEN JAQUEZ Date Time Provider Department Center 11/29/2024 10:00 AM [id number], BRENT PTSANTOSH Moeller Reason for Visit: PT Eval [747] Physical Therapy [503] Visit Diagnoses:Physical deconditioning [R53.81] Gait abnormality [R26.9] Allergies As of Date: 11/29/2024 Noted Allergy Reaction SHARON INHIBITORS 08/22/2013 14 - Other: See Comments Comments: Severe hypotension VIOXX (ROFECOXIB) 11/12/2023 8 - GI Upset Date Reviewed: 11/14/2024 Reviewed by: Nicol Machado MA - Fully Assessed Prescriptions as of 11/29/2024 - nitroglycerin sublingual (NITROSTAT) 0.4 mg SL tablet Dissolve 1 tablet under the tongue as needed. DISSOLVE ON TONGUE FOR CHEST PAIN. IF NO PAIN RELIEF, CALL 911 - Amoxicillin 500 mg tablet Take 6 tablets one hour before the dentist and 2 tablets six hours afterward. - allopurinol (ZYLOPRIM) 300 mg tablet Take 1 tablet by mouth once daily. - pravastatin (PRAVACHOL) 20 mg tablet Take 1 tablet by mouth once daily. - carvedilol (COREG) 3.125 mg tablet Take 1 tablet by mouth two times a day. - brinzolamide-brimonidine 1%-0.2 % Ophth Susp Use 1 Drop in both eyes two times a day. - triamcinolone (KENALOG) 0.025 % cream Apply to affected area two times a day. Right ear. - bimatoprost (LUMIGAN) 0.01 % drop ophthalmic drops Use 1 Drop in both eyes daily at bedtime. - Lutein 10 mg tab Take 10 mg by mouth once daily. - multivitamin tablet Take 1 tablet by mouth once daily. - niacin sustained release 500 mg tablet Take 1 tablet by mouth daily at bedtime. - Aspirin 81 mg Tab Take 81 mg by mouth once daily. Meds Comments as of 05/14/2023: Prednisone 10 mg whenever has a gout flare up. On another eye drop. Normal [facility] CNOVon 11-14-2024 CNOV Office Visit (FAMPWS ) VALDO GOMEZ ([id number]) 1935 M Date Time Provider Department 11/14/24 1:40 PM TYRA MUNOZ During your visit today, we recorded the following information about you: Pulse Respiration Blood pressure Weight 70/minute 18/minute 110/76 87.3 kg Tyra Munoz MD 11/14/2024 3:51 PM Signed Chief Complaint Patient presents with: F/U 6 Month HPI Valdo Gomez is a 88 year old male who presents here today for 6 month follow up. No bowel, Gi, or urinary issues. Does get up 3-4 x to urinate per night. Follows with Dr. Hernandez (has not seen him in quite some time), urologist for bladder cancer. CKD: GFR at 60 and stable; monitored with labs. HTN: Denies checking BP at home. Denies any chest pains, dizziness, or SOB. Taking Coreg 3.125 mg BID. Some swelling in feet and ankles, no SOB Gout: Stable with Allopurinol 300 mg daily. Uses Prednisone as needed for flare ups. Lipid: Taking Pravastatin 20 mg daily and ASA 81 mg daily. Tolerating medication well. Tries to watch diet, eats fairly healthy. Not exercising as much, was using a stationary bike but made his legs sore. Glucose - Checks sugars at home, occasionally. Recent check at home was 111. On on medications at this time. notes that pt had a bloody nose recently. Notes some increased edema in b/l feet. Still able to wear his shoes. Using a rollator today to help with ambulating. Issues with arthritis pain, states that it gets harder to walk. Asking what he can really take when having arthritis pain. had to help him get into the tub. Reports that when he was treated previously with Prednisone this got rid of his general aches and pains, but pain returned when prednisone was stopped.. Past medical history, appointments, medications, allergies reviewed. Previous Medical History PAST MEDICAL HISTORY Diagnosis Date Arthropathy, unspecified, site unspecified CAD (coronary artery disease) Essential hypertension, benign History of recurrent deep vein thrombosis (DVT) 2002 Obesity, unspecified Other premature beats Unspecified hypertensive heart disease Previous Surgical History PAST SURGICAL HISTORY Procedure Laterality Date ARTHRP ACETBLR/PROX FEM PROSTC AGRFT/ALGRFT 02/16 L side ARTHRP ACETBLR/PROX FEM PROSTC AGRFT/ALGRFT 1987 R side CATARACT EXTRACTION HX Bilateral 2014 lens implants PAST SURGICAL HISTORY OF N/A 05/20/2018 Resection Bladder Tumor Transurethral PERC TRANSL COR ANGIO 06/13/2010 Percutaneous Transluminal Coronary Angio Stent REVJ TOT HIP ARTHRP [facility] W/WO AGRFT/ALGRFT 07/19 R side RPR 1ST INGUN HRNA AGE 5 YRS/> REDUCIBLE 1996 R side RPR 1ST INGUN HRNA AGE 5 YRS/> REDUCIBLE 1/02 L side TONSILLECTOMY HX age 8 Family History No family history on file. Patient Allergies ALLERGIES Allergen Reactions Sharon Inhibitors Other: See Comments Severe hypotension Vioxx [Rofecoxib] GI Upset Current Medications Current Outpatient Medications on File Prior to Visit Medication Sig allopurinol (ZYLOPRIM) 300 mg tablet Take 1 tablet by mouth once daily. pravastatin (PRAVACHOL) 20 mg tablet Take 1 tablet by mouth once daily. carvedilol (COREG) 3.125 mg tablet Take 1 tablet by mouth two times a day. brinzolamide-brimonidine 1%-0.2 % Ophth Susp Use 1 Drop in both eyes two times a day. triamcinolone (KENALOG) 0.025 % cream Apply to affected area two times a day. Right ear. Amoxicillin 500 mg tablet Take 6 tablets one hour before the dentist and 2 tablets six hours afterward. nitroglycerin sublingual (NITROSTAT) 0.4 mg SL tablet Dissolve 1 tablet under the tongue as needed. DISSOLVE ON TONGUE FOR CHEST PAIN. IF NO PAIN RELIEF, CALL 911 bimatoprost (LUMIGAN) 0.01 % drop ophthalmic drops Use 1 Drop in both eyes daily at bedtime. Lutein 10 mg tab Take 10 mg by mouth once daily. multivitamin tablet Take 1 tablet by mouth once daily. niacin sustained release 500 mg tablet Take 1 tablet by mouth daily at bedtime. Aspirin 81 mg Tab Take 81 mg by mouth once daily. No current facility-administered medications on file prior to visit. Social History Social History Tobacco Use Smoking status: Never Smokeless tobacco: Never Vaping Use Vaping status: Never Used Substance Use Topics Alcohol use: No Drug use: No EXAM: BP 110/76 (BP Site: Left Arm, BP Position: Sitting, BP Cuff Size: Regular Adult) Pulse 70 Resp 18 Wt 87.3 kg (192 lb 7.4 oz) BMI 28.42 kg/m? General Appearance: Well appearing, alert, in no acute distress, well-hydrated, well nourished.. Lungs: Lungs clear to auscultation. No wheezing, rhonchi, rales.. Heart: RRR without murmur, gallop, or rubs. No ectopy. Extremities: Edema: mild bi in feel and lower legs. Health Maintenance List RSV Vaccine(1 - 1-dose 75+ series) Never done DTaP,Tdap,Td Vaccine(2 - Td or Td (more content not included)... Normal [facility] CBC W Auto Differential pane l (Bld)on 11-02-2024 Basophils (Bld) [#/Vol] 0.06 10*3/uL Normal <0.11 [facility] Comment on above: Order Comment: Speci men Type: BLOOD SPECIMENOrdering Facility: [facility] Address: [address] [place] [address] Performed By: #### 5 7021-8 ####[facility] LABCLIA [id number] [place] [address] [place] Basophils/100 WBC (Bld) 1.1 % Normal [facility] Comment on above: Order Comment: Speci men Type: BLOOD SPECIMENOrdering Facility: [facility] Address: [address] [place] [address] Performed By: #### 5 7021-8 ####[facility] LABCLIA [id number] [place] [address] [place] Differential cell count method Nom (Bld) Auto Normal [facility] Comment on above: Order Comment: Speci men Type: BLOOD SPECIMENOrdering Facility: [facility] Address: [address] [place] [address] Performed By: #### 5 7021-8 ####[facility] LABCLIA [id number] [place] [address] [place] Eosinophils (Bld) [#/Vol] 0.27 10*3/uL Normal <0.46 [facility] Comment on above: Order Comment: Speci men Type: BLOOD SPECIMENOrdering Facility: [facility] Address: [address] [place] [address] Performed By: #### 5 7021-8 ####[facility] LABCLIA [id number] [place] [id number] [place] Eosinophils/100 WBC (Bld) 5.1 % Normal [facility] Comment on above: Order Comment: Speci men Type: BLOOD SPECIMENOrdering Facility: [facility] Address: [address] [place] [address] Performed By: #### 5 7021-8 ####[facility] LABCLIA [id number] [place] [address] [place] Erythrocyte distribution width (RBC) [Ratio] 13.6 % Normal 11.5-15.0 [facility] Comment on above: Order Comment: Speci men Type: BLOOD SPECIMENOrdering Facility: [facility] Address: [address] [place] [address] Performed By: #### 5 7021-8 ####[facility] LABIA [id number] [place] [address] [place] Hematocrit (Bld) [Volume fraction] 42.7 % Normal 39.0-51.0 [facility] Comment on above: Order Comment: Speci men Type: BLOOD SPECIMENOrdering Facility: [facility] Address: [address] [place] [address] Performed By: #### 5 7021-8 ####[facility] LABIA [id number] [place] [address] [place] Hemoglobin (Bld) [Mass/Vol] 13.7 g/dL Normal 13.0-17.0 [facility] Comment on above: Order Comment: Speci men Type: BLOOD SPECIMENOrdering Facility: [facility] Address: [address] [place] [address] Performed By: #### 5 7021-8 ####[facility] LABIA [id number] [place] [id number] [place] Immature granulocytes (Bld) [#/Vol] 10*3/uL Normal <0.10 [facility] Comment on above: Order Comment: Speci men Type: BLOOD SPECIMENOrdering Facility: [facility] Address: [address] [place] [address] Performed By: #### 5 7021-8 ####[facility] LABCLIA [id number] [place] [id number] [place] Immature granulocytes/100 WBC (Bld) 0.2 % Normal [facility] Comment on above: Order Comment: Speci men Type: BLOOD SPECIMENOrdering Facility: [facility] Address: [address] [place] [address] Performed By: #### 5 7021-8 ####[facility] LABCLIA [id number] [place] [address] [place] Lymphocytes (Bld) [#/Vol] 2.01 10*3/uL Normal 1.00-4.00 [facility] Comment on above: Order Comment: Speci men Type: BLOOD SPECIMENOrdering Facility: [facility] Address: [address] [place] [address] Performed By: #### 5 7021-8 ####[facility] LABIA [id number] [place] [address] [place] Lymphocytes/100 WBC (Bld) 38.0 % Normal [facility] Comment on above: Order Comment: Speci men Type: BLOOD SPECIMENOrdering Facility: [facility] Address: [address] [place] [address] Performed By: #### 5 7021-8 ####[facility] LABIA [id number] [place] [address] [place] MCH (RBC) [Entitic mass] 35.5 pg High 26.0-34.0 [facility] Comment on above: Order Comment: Speci men Type: BLOOD SPECIMENOrdering Facility: [facility] Address: [address] [place] [address] Performed By: #### 5 7021-8 ####[facility] LABCLIA [id number] [place] [id number] [place] MCHC (RBC) [Mass/Vol] 32.1 g/dL Normal 30.5-36.0 [facility] Comment on above: Order Comment: Speci men Type: BLOOD SPECIMENOrdering Facility: [facility] Address: [address] [place] [address] Performed By: #### 5 7021-8 ####[facility] LABCLIA [id number] [address] [address] [place] MCV (RBC) [Entitic vol] 110.6 fL High 80.0-100.0 [facility] Comment on above: Order Comment: Speci men Type: BLOOD SPECIMENOrdering Facility: [facility] Address: [address] [place] [address] Performed By: #### 5 7021-8 ####[facility] LABIA [id number] [place] [address] [place] Monocytes (Bld) [#/Vol] 0.70 10*3/uL Normal <0.87 [facility] Comment on above: Order Comment: Speci men Type: BLOOD SPECIMENOrdering Facility: [facility] Address: [address] [place] [address] Performed By: #### 5 7021-8 ####[facility] LABIA [id number] [place] [address] [place] Monocytes/100 WBC (Bld) 13.2 % Normal [facility] Comment on above: Order Comment: Speci men Type: BLOOD SPECIMENOrdering Facility: [facility] Address: [address] [place] [address] Performed By: #### 5 7021-8 ####[facility] LABIA [id number] [place] [id number] [place] Neutrophils (Bld) [#/Vol] 2.24 10*3/uL Normal 1.45-7.50 [facility] Comment on above: Order Comment: Speci men Type: BLOOD SPECIMENOrdering Facility: [facility] Address: [address] [place] [address] Performed By: #### 5 7021-8 ####[facility] LABCLIA [id number] [place] [address] [place] Neutrophils/100 WBC (Bld) 42.4 % Normal [facility] Comment on above: Order Comment: Speci men Type: BLOOD SPECIMENOrdering Facility: [facility] Address: [address] [place] [address] Performed By: #### 5 7021-8 ####[facility] LABCLIA [id number] [place] [address] [place] Nucleated RBC (Bld) [#/Vol] 10*3/uL Normal <0.01 [facility] Comment on above: Order Comment: Speci men Type: BLOOD SPECIMENOrdering Facility: [facility] Address: [address] [place] [address] Performed By: #### 5 7021-8 ####[facility] LABCLIA [id number] [place] [address] [place] Nucleated RBC/100 WBC (Bld) [Ratio] 0.0 /100 WBC Normal [facility] Comment on above: Order Comment: Speci men Type: BLOOD SPECIMENOrdering Facility: [facility] Address: [address] [place] [address] Performed By: #### 5 7021-8 ####[facility] LABCLIA [id number] [place] [address] [place] Ovalocytes LM Ql (Bld) Few Normal [facility] Comment on above: Order Comment: Speci men Type: BLOOD SPECIMENOrdering Facility: [facility] Address: [address] [place] [address] Performed By: #### 5 7021-8 ####[facility] LABIA [id number] [place] [address] [place] Platelet mean volume (Bld) [Entitic vol] 11.9 fL Normal 9.0-12.7 [facility] Comment on above: Order Comment: Speci men Type: BLOOD SPECIMENOrdering Facility: [facility] Address: [address] [place] [address] Performed By: #### 5 7021-8 ####[facility] LABCLIA [id number] [address] [place] [address] [place] Platelets (Bld) [#/Vol] 119 10*3/uL Low 150-400 [facility] Comment on above: Order Comment: Speci men Type: BLOOD SPECIMENOrdering Facility: [facility] Address: [address] [place] [address] Performed By: #### 5 7021-8 ####[facility] LABCLIA [id number] [address], [facility] [place] Platelets Estimate (Bld) [#/Vol] Decreased Normal [facility] Comment on above: Order Comment: Speci men Type: BLOOD SPECIMENOrdering Facility: [facility] Address: [address] [place] [address] Performed By: #### 5 7021-8 ####[facility] LABIA [id number] [address], [place] [address] [place] RBC (Bld) [#/Vol] 3.86 10*6/uL Low 4.20-6.00 [facility] Comment on above: Order Comment: Speci men Type: BLOOD SPECIMENOrdering Facility: [facility] Address: [address] [place] [address] Performed By: #### 5 7021-8 ####[facility] LABCLIA [id number] [place] [id number] [place] RED CELL MORPH Reviewed: see result s of individual morphologies Normal [facility] Comment on above: Order Comment: Speci men Type: BLOOD SPECIMENOrdering Facility: [facility] Address: [address] [place] [address] Performed By: #### 5 7021-8 ####[facility] LABCLIA [id number] [address] [address] [place] WBC (Bld) [#/Vol] 5.29 10*3/uL Normal 3.70-11.00 [facility] Comment on above: Order Comment: Speci men Type: BLOOD SPECIMENOrdering Facility: [facility] Address: [address] [place] [address] Performed By: #### 5 7021-8 ####[facility] LABCLIA [id number] [address] [address] [place] Comprehensive metabolic 2000 panelon 11-02-2024 Albumin [Mass/Vol] 4.0 g/dL Normal 3.9-4.9 [facility] Comment on above: Order Comment: Speci men Type: BLOOD SPECIMENOrdering Facility: [facility] Address: [address] [place] [address] Performed By: #### 2 4331-1, 308-1, 77002-0 ####[facility] LABCLIA [id number] [place] [address] [place] ALP [Catalytic activity/Vol] 159 U/L High 38-113 [facility] Comment on above: Order Comment: Speci men Type: BLOOD SPECIMENOrdering Facility: [facility] Address: [address] [place] [address] Performed By: #### 2 4331-1, 308-, 38617-9 ####[facility] LABCLIA [id number] [address] [address] [place] ALT [Catalytic activity/Vol] 24 U/L Normal 10-54 [facility] Comment on above: Order Comment: Speci men Type: BLOOD SPECIMENOrdering Facility: [facility] Address: [address] [place] [address] Performed By: #### 2 4331-1, 3084-1, 79503-7 ####[facility] LABCLIA [id number] [address] [place] [address] [place] Anion gap [Moles/Vol] 12 mmol/L Normal 8-15 [facility] Comment on above: Order Comment: Speci men Type: BLOOD SPECIMENOrdering Facility: [facility] Address: [address] [place], [place] [address] Performed By: #### 2 4331-1, 3084-1, 08914-7 ####[facility] LABCLIA [id number] [address] [address] [place] AST [Catalytic activity/Vol] 41 U/L High 14-40 [facility] Comment on above: Order Comment: Speci men Type: BLOOD SPECIMENOrdering Facility: [facility] Address: [address] [place], [place] [address] Performed By: #### 2 4331-1, 308-, 77513-1 ####[facility] LABIA [id number] [address] [address] [place] Bilirubin [Mass/Vol] 0.9 mg/dL Normal 0.2-1.3 [facility] Comment on above: Order Comment: Speci men Type: BLOOD SPECIMENOrdering Facility: [facility] Address: [address] [place], [place] [address] Performed By: #### 2 4331-1, 308-, 85922-8 ####[facility] LABIA [id number] [address] [address] [place] Calcium [Mass/Vol] 9.3 mg/dL Normal 8.5-10.2 [facility] Comment on above: Order Comment: Speci men Type: BLOOD SPECIMENOrdering Facility: [facility] Address: [address] [place], [place] [address] Performed By: #### 2 4331-1, 308-1, 19978-6 ####[facility] LABCLIA [id number] [address] [address] [place] Chloride [Moles/Vol] 105 mmol/L Normal 98-107 [facility] Comment on above: Order Comment: Speci men Type: BLOOD SPECIMENOrdering Facility: [facility] Address: [address] [place] [address] Performed By: #### 2 4331-1, 3084-1, 66648-2 ####[facility] LABIA [id number] [place] [id number] [place] CO2 [Moles/Vol] 23 mmol/L Normal 22-30 [facility] Comment on above: Order Comment: Speci men Type: BLOOD SPECIMENOrdering Facility: [facility] Address: [address] [place] [address] Performed By: #### 2 4331-1, 3084-1, 11590-9 ####[facility] LABIA [id number] [place] [id number] [place] Creatinine [Mass/Vol] 1.19 mg/dL Normal 0.73-1.22 [facility] Comment on above: Order Comment: Speci men Type: BLOOD SPECIMENOrdering Facility: [facility] Address: [address] [place] [address] Performed By: #### 2 4331-1, 3084-1, 46291-7 ####[facility] LABIA [id number] [place] [id number] [place] [facility] Creatinine and Glomerular filtration rate.predicted panel (S/P/Bld) 59 mL/min/1.73m??? Low >=60 [facility] Comment on above: Order Comment: Speci men Type: BLOOD SPECIMENOrdering Facility: [facility] Address: [address] [place] [address] Result Comment: Erica mated Glomerular Filtration Rate (eGFR) is calculated using the 2020 CKD-EPI creatinine equation. This equation utilizes serum creatinine, sex, and age as parameters. The creatinine assay has traceable calibration to isotope dilution-mass spectrometry. Refer to KDIGO guidelines for clinical interpretation. In patients with unstable renal function, e.g. those with acute kidney injury, the eGFR may not accurately reflect actual GFR. Performed By: #### 2 4331-1, 3083-08, ####[facility] LABCLIA [id number] [facility] MARYVALELID [facility] [facility] Performing ArtsDESK [id number] [address] [place] Glucose [Mass/Vol] 111 mg/dL High 74-99 [facility] Comment on above: Order Comment: Marquez parekh Type: BLOOD SPECIMENOrdering Facility: [facility] Address: [address] [place] [address] Result Comment: The [place] Diabetes Association (ADA) provides guidance for cutoff values for fasting glucose and random glucose. The ADA defines fasting as no caloric intake for at least 8 hours. Fasting plasma glucose results between 100 to 125 mg/dL indicate increased risk for diabetes (prediabetes). Fasting plasma glucose results greater than or equal to 126 mg/dL meet the criteria for diagnosis of diabetes. In the absence of unequivocal hyperglycemia, results should be confirmed by repeat testing. In a patient with classic symptoms of hyperglycemia or hyperglycemic crisis, random plasma glucose results greater than or equal to 200 mg/dL meet the criteria for diagnosis of diabetes. Reference: Standards of Medical Care in Diabetes 2016, [place] Diabetes Association. Diabetes Care. 2016.39(Suppl 1). Performed By: #### 2 4331-1, 3083-08, ####[facility] LABCLIA [id number] [employer] TECHN[address]IESL[address] AVEN[address] [id number], [place] [address] [place] Potassium [Moles/Vol] 4.4 mmol/L Normal 3.7-5.1 [facility] Comment on above: Order Comment: Marquez parekh Type: BLOOD SPECIMENOrdering Facility: [facility] Address: [address] [place] [address] Performed By: #### 2 4331-1, 3083-08, ####[facility]CLIA [id number] [address] [place], [place] [address] [place] Protein [Mass/Vol] 6.9 g/dL Normal 6.3-8.0 [facility] Comment on above: Order Comment: Speci men Type: BLOOD SPECIMENOrdering Facility: [facility] Address: [address] [place], [place] [address] Performed By: #### 2 4331-1, 30811-15, ####[facility] [id number] [facility] [address] [address] [place] Sodium [Moles/Vol] 140 mmol/L Normal 136-144 [facility] Comment on above: Order Comment: Speci men Type: BLOOD SPECIMENOrdering Facility: [facility] Address: [address] [place], [place] [address] Performed By: #### 2 4331-1, 3083-08, ####[facility] LABIA [id number] [address] [address] [place] Urea nitrogen [Mass/Vol] 31 mg/dL High 9-24 [facility] Comment on above: Order Comment: Speci men Type: BLOOD SPECIMENOrdering Facility: [facility] Address: [address] [place] [address] Performed By: #### 2 4331-1, 3083-08, ####[facility]CLIA [id number] [address] [place] [address] [place] Lipid 1996 panelon 5 Cholesterol [Mass/Vol] 106 mg/dL Normal <200 [facility] Comment on above: Order Comment: Speci men Type: BLOOD SPECIMENOrdering Facility: [facility] Address: [address] [place] [address] Result Comment: <200 mg/dL, Desirable 200-239 mg/dL, Borderline high >239 mg/dL, High Performed By: #### 2 4331-1, 308-1, ####[facility] LABIA [id number] [address] [place] [address] [place] Cholesterol in HDL [Mass/Vol] 48 mg/dL Normal >39 [facility] Comment on above: Order Comment: Speci izabella Type: BLOOD SPECIMENOrdering Facility: [facility] Address: [address] [place] [address] Result Comment: 40-5 9 mg/dL, Acceptable >59 mg/dL, High: Negative risk factor for coronary heart disease <40 mg/dL, Low: Positive risk factor for coronary heart disease Performed By: #### 2 4331-1, 3083-, ####[facility]CLIA [id number] [address] OF [facility] Cholesterol in LDL [Mass/Vol] 45 mg/dL Normal <100 [facility] Comment on above: Order Comment: Pedrokay parekh Type: BLOOD SPECIMENOrdering Facility: [facility] Address: [address] [place] [address] Result Comment: <100 mg/dL, Optimal 100-129 mg/dL, Near optimal/above optimal 130-159 mg/dL, Borderline high 160-189 mg/dL, High >189 mg/dL, Very high Secondary prevention optimal LDL Cholesterol levels are recommended to be < 70 mg/dL Performed By: #### 2 4331-1, 3083-08, ####[facility]CL[facility] [id number] [address] [place] Cholesterol in LDL/Cholesterol in HDL [Mass ratio] 0.94 {ratio} Normal <2.54 [facility] Comment on above: Order Comment: Marquez parekh Type: BLOOD SPECIMENOrdering Facility: [facility] Address: [address] [place] [address] Result Comment: Refe rence: 1. National Cholesterol Education Program ATP III Guideline At-A-Glance Quick Desk Reference: National Heart, Lung, and Blood Addison. National Institutes of Health. 2001: NIH Publication No. 01-3305. 2. An International Atherosclerosis Society position paper: global recommendations for the management of dyslipidemia: executive summary, Atherosclerosis. 2014: 232(2):410-413. Performed By: #### 2 4331-1, 3083-, ####[facility] [id number] [facility] [id number], [place] [address] [place] Cholesterol in VLDL [Mass/Vol] 13 mg/dL Normal <30 [facility] Comment on above: Order Comment: Speci men Type: BLOOD SPECIMENOrdering Facility: [facility] Address: [address] [place], [place] [address] Performed By: #### 2 4331-1, 3083-08, ####[facility] [id number] [facility] [address] [place] [address] [place] Cholesterol non HDL [Mass/Vol] 58 mg/dL Normal <130 [facility] Comment on above: Order Comment: Speci men Type: BLOOD SPECIMENOrdering Facility: [facility] Address: [address] [place] [address] Result Comment: <130 mg/dL, Optimal 130-159 mg/dL, Near optimal/above optimal 160-189 mg/dL, Borderline high 190-219 mg/dL, High >219 mg/dL, Very high Secondary prevention optimal non HDL Cholesterol levels are recommended to be <100 mg/dL Performed By: #### 2 4331-1, 3083-08, ####[facility] [id number] [facility] [address] [place] [address] [place] Cholesterol.total/Chol esterol in HDL [Mass ratio] 2.21 {ratio} Normal <5.10 [facility] Comment on above: Order Comment: Speci men Type: BLOOD SPECIMENOrdering Facility: [facility] Address: [address] [place] [address] Performed By: #### 2 4331-1, 3083-08, ####[facility]CL[facility] [id number] [address] [address] [place] FASTING TIME 12 hrs Normal [facility] Comment on above: Order Comment: Speci men Type: BLOOD SPECIMENOrdering Facility: [facility] Address: [address] [place] [address] Performed By: #### 2 4331-1, 30811-15, ####[facility]CLIA [id number] [place] [address] [place] Triglyceride [Mass/Vol] 63 mg/dL Normal <150 [facility] Comment on above: Order Comment: Speci men Type: BLOOD SPECIMENOrdering Facility: [facility] Address: [address] [place] [address] Result Comment: <150 mg/dL, Normal 150-199 mg/dL, Borderline high 200-499 mg/dL, High >499 mg/dL, Very high Performed By: #### 2 4331-1, 30811-15, ####[facility] LABCLIA [id number] [place] [address] [place] Urate SerPl-mCncon Urate [Mass/Vol] 3.2 mg/dL Low 4.0-8.1 [facility] Comment on above: Order Comment: Speci men Type: BLOOD SPECIMENOrdering Facility: [facility] Address: [address] [place] [address] Performed By: #### 2 4331-1, 308, ####[facility]CLIA [id number] [address] [place] CNOVon 05-16-2024 CNOV Office Visit (FAMPWS ) VALDO GOMEZ ([id number]) 1935 M Date Time Provider Department 05/16/24 1:40 PM TYRA MUNOZPWS During your visit today, we recorded the following information about you: Pulse Respiration Blood pressure Weight 68/minute 18/minute 124/72 84.9 kg Height 1.753 m Tyra Munoz MD 05/16/2024 2:28 PM Signed Valdo Gomez is a 88 year old male here for a Medicare wellness visit. - Anxiety/Depression screening negative. Will get Flu and Covid in later May beginning of June. Medicare Health Risk Assessment General Health Good Exercise: Minutes/Day 0 min Exercise: Days/Week 0 days Alcohol: Daily Use Never Alcohol: Drinks/Day Patient does not drink Alcohol: 6 or more drinks Never Feel off balance Yes (occasional when getting up at night, denies any falls) Concerns: Teeth/Dentures No Concerns: Sexual function No Troubled by feelings None of the above Frequency: Eating healthy diet Nearly every day ADLs requiring help Grooming; Walking ( helps him due to shoulder ROM. Using a cane. No other assistance needed.) Safety precautions in home/vehicle Yes Smoke, vape, chews tobacco No Difficulty hearing Yes (One ear does better than the other, but overall stable) Difficulty seeing Yes (peripheral vision) Current Providers Specialists: I have reviewed specialist-related care of the patient in the medical record. Current care team: Patient Care Team: Tyra Munoz MD as PCP - [facility] [place] [facility]. Dr[facility] Mere Rahman [facility], twice yearly. Medical/Family history review Reviewed and updated problem list, medical/surgical/family/soci al history, medications, and allergies. Opioid use review Opioid Medications (last 90 days) No data to display Anxiety/Depression screening Recommendation: no further intervention at this time Cognitive screening Cognitive screening reviewed and No further action needed (score 3-5). Functional Observation Was the patient's Timed Up AND Go test unsteady or >= 12 seconds? No, but uses a cane to help ambulate. Advance Care Planning Surrogate decision maker and/or advance care plan documented Measurements BP 124/72 (BP Site: Right Arm, BP Position: Sitting, BP Cuff Size: Regular Adult) Pulse 68 Resp 18 Ht 175.3 cm (5' 9) Wt 84.9 kg (187 lb 2.7 oz) BMI 27.64 kg/m? Vision Screening: Follows with optometry/ophthalmology Assessment/Plan Medicare annual wellness visit, subsequent (Z00.00) - Counseled on healthy diet and regular exercise - Fall avoidance information provided - Personalized prevention plan provided Tyra Munoz MD Chief Complaint Follow up HPI Valdo Gomez is a 88 year old male who presents here today for 6 month follow up. Here today with his . No bowel, Gi, or urinary issues. Has followed with Urologist Dr. Hernandez for bladder cancer. Not following currently. Gets up 3-4 x per night. Lipid: Taking Pravastatin 20 mg daily and ASA 81 mg daily. Tolerating medication well. Tries to watch diet, eats fairly healthy. HTN: Denies checking BP at home. Denies any chest pains, dizziness, or SOB. Taking Coreg 3.125 mg BID. Gout: Stable with Allopurinol 300 mg daily. Uses Prednisone as needed for flare ups. CKD: GFR at 60 and stable; monitored with labs. B/L shoulder arthritis, R>L. Past medical history, appointments, medications, allergies reviewed. Previous Medical History PAST MEDICAL HISTORY Diagnosis Date Arthropathy, unspecified, site unspecified CAD (coronary artery disease) Essential hypertension, benign History of recurrent deep vein thrombosis (DVT) 2002 Obesity, unspecified Other premature beats Unspecified hypertensive heart disease Previous Surgical History PAST SURGICAL HISTORY Procedure Laterality Date ARTHRP ACETBLR/PROX FEM PROSTC AGRFT/ALGRFT 02/16 L side ARTHRP ACETBLR/PROX FEM PROSTC AGRFT/ALGRFT 1987 R side CATARACT EXTRACTION HX Bilateral 2014 lens implants PAST SURGICAL HISTORY OF N/A 05/20/2018 Resection Bladder Tumor Transurethral PERC TRANSL COR ANGIO 06/13/2010 Percutaneous Transluminal Coronary Angio Stent REVJ TOT HIP ARTHRP BTH W/WO AGRFT/ALGRFT 07/19 R side RPR 1ST INGUN HRNA AGE 5 YRS/> REDUCIBLE 1996 R side RPR 1ST INGUN HRNA AGE 5 YRS/> REDUCIBLE 08/18 L side TONSILLECTOMY HX age 8 Family History No family history on file. Patient Allergies ALLERGIES Allergen Reactions Sharon Inhibitors Other: See Comments Severe hypotension Vioxx [Rofecoxib] GI Upset Current Medications Current Outpatient Medications on File Prior to Visit Medication Sig triamcinolone (KENALOG) 0.025 % cream Apply to affected area two times a day. Right ear. pravastatin (PRAVACHOL) 20 mg tablet Take 1 tablet by mouth once daily. carvedilol (COREG) 3. (more content not included)... Normal [facility] Comprehensive metabolic 2000 panelon 05-12-2024 Albumin [Mass/Vol] 3.7 g/dL Low 3.9-4.9 [facility] Comment on above: Order Comment: Speci men Type: BLOOD SPECIMENOrdering Facility: [facility] Address: [address] [place] [address] Performed By: #### 2 4331-1, 06712-0, 3083- ####[facility] LABCLIA [id number] [place] [address] [place] ALP [Catalytic activity/Vol] 140 U/L High 38-113 [facility] Comment on above: Order Comment: Speci men Type: BLOOD SPECIMENOrdering Facility: [facility] Address: [address] [place] [address] Performed By: #### 2 4331-1, 30910-2, 3083- ####[facility] LABCLIA [id number] [place] [address] [place] ALT [Catalytic activity/Vol] 21 U/L Normal 10-54 [facility] Comment on above: Order Comment: Speci men Type: BLOOD SPECIMENOrdering Facility: [facility] Address: [address] [place] [address] Performed By: #### 2 4331-1, 31724-2, 3083- ####[facility] LABCLIA [id number] [place] [id number] [place] Anion gap [Moles/Vol] 14 mmol/L Normal 8-15 [facility] Comment on above: Order Comment: Speci men Type: BLOOD SPECIMENOrdering Facility: [facility] Address: [address] [place] [address] Performed By: #### 2 4331-1, 53146-6, 308-1 ####[facility]CLIA [id number] [place] [id number] [place] AST [Catalytic activity/Vol] 31 U/L Normal 14-40 [facility] Comment on above: Order Comment: Speci men Type: BLOOD SPECIMENOrdering Facility: [facility] Address: [address] [place] [address] Performed By: #### 2 4331-1, 33107-2, 3083- ####[facility] LABCLIA [id number] [place] [address] [place] Bilirubin [Mass/Vol] 1.1 mg/dL Normal 0.2-1.3 [facility] Comment on above: Order Comment: Speci men Type: BLOOD SPECIMENOrdering Facility: [facility] Address: [address] [place] [address] Performed By: #### 2 4331-1, 91176-7, 3083- ####[facility] LABIA [id number] [place] [address] [place] Calcium [Mass/Vol] 9.1 mg/dL Normal 8.5-10.2 [facility] Comment on above: Order Comment: Speci men Type: BLOOD SPECIMENOrdering Facility: [facility] Address: [address] [place] [address] Performed By: #### 2 4331-1, 71211-4, 3083- ####[facility] LABCLIA [id number] [place] [address] [place] Chloride [Moles/Vol] 103 mmol/L Normal 98-107 [facility] Comment on above: Order Comment: Speci men Type: BLOOD SPECIMENOrdering Facility: [facility] Address: [address] [place] [address] Performed By: #### 2 4331-1, 62779-8, 3083- ####[facility] LABCLIA [id number] [place] [address] [place] CO2 [Moles/Vol] 24 mmol/L Normal 22-30 [facility] Comment on above: Order Comment: Speci men Type: BLOOD SPECIMENOrdering Facility: [facility] Address: [address] [place] [address] Performed By: #### 2 4331-1, 14857-6, 3083- ####[facility] LABCLIA [id number] [place] [address] [place] Creatinine [Mass/Vol] 1.12 mg/dL Normal 0.73-1.22 [facility] Comment on above: Order Comment: Speci men Type: BLOOD SPECIMENOrdering Facility: [facility] Address: [address] [place] [address] Performed By: #### 2 4331-1, 86433-7, 3083-08 ####[facility] LABIA [id number] [place] [address] [place] Creatinine and Glomerular filtration rate.predicted panel (S/P/Bld) 64 mL/min/1.73m??? Normal >=60 [facility] Comment on above: Order Comment: Marquez parekh Type: BLOOD SPECIMENOrdering Facility: [facility] Address: [address] [place] [address] Result Comment: Erica mated Glomerular Filtration Rate (eGFR) is calculated using the 2020 CKD-EPI creatinine equation. This equation utilizes serum creatinine, sex, and age as parameters. The creatinine assay has traceable calibration to isotope dilution-mass spectrometry. Refer to KDIGO guidelines for clinical interpretation. In patients with unstable renal function, e.g. those with acute kidney injury, the eGFR may not accurately reflect actual GFR. Performed By: #### 2 4331-1, 44558-0, 3083-08 ####[facility] LABCLIA [id number] [place] [address] [place] Glucose [Mass/Vol] 100 mg/dL High 74-99 [facility] Comment on above: Order Comment: Speci men Type: BLOOD SPECIMENOrdering Facility: [facility] Address: [address] [place], [place] [address] Result Comment: The [place] Diabetes Association (ADA) provides guidance for cutoff values for fasting glucose and random glucose. The ADA defines fasting as no caloric intake for at least 8 hours. Fasting plasma glucose results between 100 to 125 mg/dL indicate increased risk for diabetes (prediabetes). Fasting plasma glucose results greater than or equal to 126 mg/dL meet the criteria for diagnosis of diabetes. In the absence of unequivocal hyperglycemia, results should be confirmed by repeat testing. In a patient with classic symptoms of hyperglycemia or hyperglycemic crisis, random plasma glucose results greater than or equal to 200 mg/dL meet the criteria for diagnosis of diabetes. Reference: Standards of Medical Care in Diabetes 2016, [place] Diabetes Association. Diabetes Care. 2016.39(Suppl 1). Performed By: #### 2 4331-1, 16565-3, 3083- ####[facility]CLIA [id number] [place] [address] [place] Potassium [Moles/Vol] 4.0 mmol/L Normal 3.7-5.1 [facility] Comment on above: Order Comment: Marquez men Type: BLOOD SPECIMENOrdering Facility: [facility] Address: [address] [place] [address] Performed By: #### 2 4331-1, , 3083-08 ####[facility]CL[facility] [id number] [place] [address] [place] Protein [Mass/Vol] 6.9 g/dL Normal 6.3-8.0 [facility] Comment on above: Order Comment: Pedroi men Type: BLOOD SPECIMENOrdering Facility: [facility] Address: [address] [place], [place] [address] Performed By: #### 2 4331-1, 39470-2, 3083-08 ####[facility]CLIA [id number] [place] [id number] [place] Sodium [Moles/Vol] 141 mmol/L Normal 136-144 [facility] Comment on above: Order Comment: Speci men Type: BLOOD SPECIMENOrdering Facility: [facility] Address: [address] [place] [address] Performed By: #### 2 4331-1, 05731-9, 3083-08 ####[facility]CLIA [id number] [place] [address] [place] Urea nitrogen [Mass/Vol] 27 mg/dL High 9-24 [facility] Comment on above: Order Comment: Speci men Type: BLOOD SPECIMENOrdering Facility: [facility] Address: [address] [place] [address] Performed By: #### 2 4331-1, , 3083-08 ####[facility] LABCLIA [id number] [place] [address] [place] Lipid 1996 panelon 4 Cholesterol [Mass/Vol] 116 mg/dL Normal <200 [facility] Comment on above: Order Comment: Speci men Type: BLOOD SPECIMENOrdering Facility: [facility] Address: [address] [place] [address] Result Comment: <200 mg/dL, Desirable 200-239 mg/dL, Borderline high >239 mg/dL, High Performed By: #### 2 4331-1, , 3083-08 ####[facility]CL[facility] [id number] [place] [address] [place] Cholesterol in HDL [Mass/Vol] 50 mg/dL Normal >39 [facility] Comment on above: Order Comment: Speci men Type: BLOOD SPECIMENOrdering Facility: [facility] Address: [address] [place] [address] Result Comment: 40-5 9 mg/dL, Acceptable >59 mg/dL, High: Negative risk factor for coronary heart disease <40 mg/dL, Low: Positive risk factor for coronary heart disease Performed By: #### 2 4331-1, 02878-4, 3083-1 ####[facility]CL[facility] [id number] [place] [address] [place] Cholesterol in LDL [Mass/Vol] 52 mg/dL Normal <100 [facility] Comment on above: Order Comment: Speci men Type: BLOOD SPECIMENOrdering Facility: [facility] Address: [address] [place] [address] Result Comment: <100 mg/dL, Optimal 100-129 mg/dL, Near optimal/above optimal 130-159 mg/dL, Borderline high 160-189 mg/dL, High >189 mg/dL, Very high Secondary prevention optimal LDL Cholesterol levels are recommended to be < 70 mg/dL Performed By: #### 2 4331-1, 72865-5, 3083- ####[facility]IA [id number] [place] [address] [place] Cholesterol in LDL/Cholesterol in HDL [Mass ratio] 1.04 {ratio} Normal <2.54 [facility] Comment on above: Order Comment: Speci men Type: BLOOD SPECIMENOrdering Facility: [facility] Address: [address] [place] [address] Result Comment: Brian hanson: 1. National Cholesterol Education Program ATP III Guideline At-A-Glance Quick Desk Reference: National Heart, Lung, and Blood Addison. National Institutes of Health. 2001: NIH Publication No. 01-3305. 2. An International Atherosclerosis Society position paper: global recommendations for the management of dyslipidemia: executive summary, Atherosclerosis. 2014: 232(2):410-413. Performed By: #### 2 4331-1, 95066-6, 3083- ####[facility] LABIA [id number] [place] [address] [place] Cholesterol in VLDL [Mass/Vol] 14 mg/dL Normal <30 [facility] Comment on above: Order Comment: Speci men Type: BLOOD SPECIMENOrdering Facility: [facility] Address: [address] [place] [address] Performed By: #### 2 4331-1, , 3083-08 ####[facility]CLIA [id number] [address] [address] [place] Cholesterol non HDL [Mass/Vol] 66 mg/dL Normal <130 [facility] Comment on above: Order Comment: Speci men Type: BLOOD SPECIMENOrdering Facility: [facility] Address: [address] [place] [id number] Result Comment: <130 mg/dL, Optimal 130-159 mg/dL, Near optimal/above optimal 160-189 mg/dL, Borderline high 190-219 mg/dL, High >219 mg/dL, Very high Secondary prevention optimal non HDL Cholesterol levels are recommended to be <100 mg/dL Performed By: #### 2 4331-1, , 3083-08 ####[facility]CL[facility] [id number] [address] [address] [place] Cholesterol.total/Chol esterol in HDL [Mass ratio] 2.32 {ratio} Normal <5.10 [facility] Comment on above: Order Comment: Speci men Type: BLOOD SPECIMENOrdering Facility: [facility] Address: [address] [place] [address] Performed By: #### 2 4331-1, , 3083-08 ####[facility]CL[facility] [id number] [address] [address] [place] FASTING TIME 12 hrs Normal [facility] Comment on above: Order Comment: Speci men Type: BLOOD SPECIMENOrdering Facility: [facility] Address: [address] [id number] Performed By: #### 2 4331-1, , 3083-08 ####[facility] LABCLIA [id number] [place] [id number] [place] Triglyceride [Mass/Vol] 71 mg/dL Normal <150 [facility] Comment on above: Order Comment: Speci men Type: BLOOD SPECIMENOrdering Facility: [facility] Address: [address] [id number] Result Comment: <150 mg/dL, Normal 150-199 mg/dL, Borderline high 200-499 mg/dL, High >499 mg/dL, Very high Performed By: #### 2 4331-1, 29890-7, 3084-1 ####[facility] LABCLIA [id number] [address] [address] [facility] Urate SerPl-ncon 4 Urate [Mass/Vol] 3.4 mg/dL Low 4.0-8.1 Delio frankel [facility] Comment on above: Order Comment: Speci men Type: BLOOD SPECIMENOrdering Facility: [facility] Address: [facility] [place] [address] Performed By: #### 2 4331-1, 19502-8, 308 ####[facility] LABCLIA [id number] [address] OF [facility] ANES Garry 05-20-2018 ANES POST HNO ID: [id number] thor: Brendan RegulaService: AnesthesiologyAuthor Type: PhysicianType: Anesthesia PostOpFiled: 05/20/2018 5:24 PMNote Text:POST ANESTHESIA EVALUATION NOTESERVICE DATE: 05/20/2018SERVICE TIME: 5:23 PMDOB: 1935Vitals: 05/20/1808Temp: 36.1 ?C (97 ?F) 36.4 ?C (97.5 ?F) 36.4 ?C (97.5 ?F) 05/20/18095BP: 108/58 111/57 127/69 126/72 05/20/1809Pulse: (!) 52 (!) 48 (!) 54 (!) 51 05/20/1809 10/04/093180Fjvd: 13 12 16 14 05/20/1809SpO2: 100% 100% 100% 98%Validated Vital Signs: YesPOST ANES STATUS: No apparent anesthetic complications. The patient isappropriately hydrated with stable respiratory and cardiovascular status.Patient has safe and adequate airway control. The patient has appropriatepain relief and no significant post operative nausea or vomiting. Thepatient has achieved baseline mental status.Intra-Operative Events: No Significant Anesthesia EventsFurther assessment by Anesthesia Service: NoneOther Remarks:SIGNATURE: Brendan Senior MD PATIENT NAME: Valdo FryeerDATE: May 20, 2018 : 5:23 PM PAGER/CONTACT #: [phone] [facility] ANES PREOPon 05-20-2018 ANES PREOP HNO ID: [id number] thor: Duran Sparkservice: AnesthesiologyAuthor Type: PhysicianType: Anesthesia PreOpFiled: 05/20/2018 7:40 AMNote Text: ANESTHESIOLOGY DAY OF SURGERY NOTESERVICE DATE: 05/20/2018SERVICE TIME: 7:38 AMDOB: 1935Procedure(s) (LRB):RESECTION BLADDER TUMOR TRANSURETHRAL (N/A)INSTILL ANTICARCINOGENIC AGENT IN BLADDER (N/A)Surgeon(s):Kirill HernandezEstimalex body mass index is 25.5 kg/m? as calculated from the following: Height as of this encounter: 182.9 cm (6' 0.01). Weight as of this encounter: 85.3 kg (188 lb 0.8 oz).Most recent hematocrit and potassium results:Hematocrit 26.9 08/03/2003Potassium 4.1 03/29/2015NES DOS/PREOP NOTE:Vitals: 05/20/18077BP: 110/57Pulse: (!) 54Resp: 18Temp: 36.1 ?C (97 ?F)SpO2: 100%Weight: 85.3 kg (188 lb 0.8 oz)Height: 182.9 cm (6' 0.01)ACTIVE PROBLEM LISTAsa Class IIEssential Hypertension, BenignOsteoarthrosis, Unspecified Whether Generalized Or Localized, UnspecifiedSiteChronic Kidney Disease, Stage Iii (Moderate) (Hcc)Cad (Coronary Artery Disease)GoutPure HypercholesterolemiaBladder MassGross HematuriaPAST MEDICAL HISTORYDiagnosis Date- Arthropathy, unspecified, site unspecified- CAD (coronary artery disease)- Essential hypertension, benign- History of recurrent deep vein thrombosis (DVT) 2002- Obesity, unspecified- Other premature beats- Unspecified hypertensive heart diseasePAST SURGICAL HISTORYProcedure Laterality Date- CATARACT EXTRACTION HX Bilateral 2013 lens implants- PERC TRANSL COR ANGIO 06/13/2010 Percutaneous Transluminal Coronary Angio Stent- REPAIR ING HERNIA,5+Y/O,REDUCIBL 1996 R side- REPAIR ING HERNIA,5+Y/O,REDUCIBL 08/18 L side- REVISE TOTAL HIP REPLACEMENT 07/19 R side- TONSILLECTOMY HX age 8- TOTAL HIP REPLACEMENT 02/16 L side- TOTAL HIP REPLACEMENT 1987 R sideNo family history on file.Social History:Social HistorySubstance Use Topics- Smoking status: Never Smoker- Smokeless tobacco: Never Used- Alcohol use NoNo current facility-administered medications on file prior to encounter.Current Outpatient Prescriptions on File Prior to Encounter:nitroglycerin sublingual (NITROSTAT) 0.4 mg SL tablet Dissolve 1 tabletunder the tongue as needed. DISSOLVE ON TONGUE FOR CHEST PAIN. IF NO PAINRELIEF, CALL 911allopurinol (ZYLOPRIM) 300 mg tablet Take 1 tablet by mouth once daily.carvedilol (COREG) 3.125 mg tablet Take 1 tablet by mouth twice daily.pravastatin (PRAVACHOL) 20 mg tablet Take 1 tablet by mouth once daily.bimatoprost (LUMIGAN) 0.01 % drop ophthalmic drops Use 1 Drop in both eyesdaily at bedtime.Lutein 10 mg tab Take 10 mg by mouth once daily.Brimonidine-Timolol 0.2-0.5 % drop Use 1 Drop in both eyes twice daily.multivitamin tablet Take 1 tablet by mouth once daily.niacin sustained release 500 mg tablet Take 1 tablet by mouth daily atbedtime.Aspirin 81 mg Tab Take 81 mg by mouth once daily.iv contrast (will be provided with radiology test) CT Urogram WO/W Inject,intravenously, once for 1 dose.No IV access, insert saline lock prior tothe beginning of sedation, infusion, injection of imaging exam.Discontinue saline lock post exam. If Pt. has a central line or IVAD, mayaccess for administration according to line specific nursing protocol.Once exam is complete flush line and de-access according to line specificnursing protocol in the CT contrast administration guidelines link.Current Facility-Administered Medications:mitoMYcin solr 40 mg injection 40 mg INTRAVESICAL ONCE Marwan (Res) AliAllergies:ALLERGIESAllerg en Reactions- Sensitive To Vioxx * STOMACH SORE, NAUSEADOS EXAM: Adequate NPO Status: YesAnesthetic Risks, Benefits, Alternatives, Personnel and Consent Discussed:YesPatient agrees to proceed: YesPrevious Anesthesia: No history of adverse eventAirway Assessment: MP 3; Neck ROM: Full ROM without neurologic symptoms;Airway Evaluation: Small Mouth Opening and Alvarado PresentSymptoms of Sleep Apnea: Hypertension, Age over 50 (82 year old) and MalegenderDentition: Teeth intactAdditional Physical Exam:Lungs: Patient health status unchanged since recent history and physical.See history and physical for exam findings.Cardiac: Patient health status unchanged since recent history andphysical. See history and physical for exam findings.Additional Pertinent Findings: N/ABlood Products: Will accept Blood/Blood ProductsAnesthetic Plan: GeneralAnesthetic Monitoring: Standard ASA MonitorsPain Management Plan: Parenteral or OralASA Class: 3Other Medical Problems:CAD with stent 2009, took ASA on 05/18/2018 in [id number] massChronic Beta Sung medication administered within 24 hours: Larry have interviewed and examined the patient. I have reviewed the medicalrecord and/or the pre-anesthesia evaluation, pertinent labs, and testresults.Significant changes in the patient's condition since the History andPhysical, not otherwise documented in primary service progress notes: NoThis contains updated information obtained within 48 hours ofSurgery/Procedure.SIGNATUR E: Duran Colin MD PATIENT NAME: Valdo FryeerDATE: May 20, 2018 : 7:37 AM CSN: [id number] [facility] HISTORY PHYSICALon HISTORY PHYSICAL HNO ID: [id number] thor: Kirill Florian: UrologyAuthor Type: PhysicianType: HANDPFiled: 05/20/2018 2:03 PMNote Text: Urology History and PhysicalDate: 05/20/2018Patient Name: Valdo Oneal of : 7Admit Date: 05/20/2018Age: 82 year oldMRN: [id number]: Pau Waggoner chief complaint on file.Narrative:The patient is a 82 year old male known to Dr. Hernandez for history ofhematuria with workup resulting in bladder mass seen on office cystoscopy.He presents for definitive management of his bladder mass.PAST MEDICAL HISTORYDiagnosis Date- Arthropathy, unspecified, site unspecified- CAD (coronary artery disease)- Essential hypertension, benign- History of recurrent deep vein thrombosis (DVT) 2002- Obesity, unspecified- Other premature beats- Unspecified hypertensive heart diseasePAST SURGICAL HISTORYProcedure Laterality Date- CATARACT EXTRACTION HX Bilateral 2013 lens implants- PERC TRANSL COR ANGIO 06/13/2010 Percutaneous Transluminal Coronary Angio Stent- REPAIR ING HERNIA,5+Y/O,REDUCIBL 1996 R side- REPAIR ING HERNIA,5+Y/O,REDUCIBL 08/18 L side- REVISE TOTAL HIP REPLACEMENT 07/19 R side- TONSILLECTOMY HX age 8- TOTAL HIP REPLACEMENT 02/16 L side- TOTAL HIP REPLACEMENT 1987 R sideNo family history on file.Outpatient Prescriptions Marked as Taking for the 05/20/18 encounter(Hospital Encounter):cyanocobalamin (VITAMIN B-12) 500 mcg tab tab(s) Take by mouth once daily.Disp: Rfl:nitroglycerin sublingual (NITROSTAT) 0.4 mg SL tablet Dissolve 1 tabletunder the tongue as needed. DISSOLVE ON TONGUE FOR CHEST PAIN. IF NO PAINRELIEF, CALL 911 Disp: 1 Bottle of 25 Rfl: 1allopurinol (ZYLOPRIM) 300 mg tablet Take 1 tablet by mouth once daily.Disp: 90 tablet Rfl: 3carvedilol (COREG) 3.125 mg tablet Take 1 tablet by mouth twice daily.Disp: 180 tablet Rfl: 3pravastatin (PRAVACHOL) 20 mg tablet Take 1 tablet by mouth once daily.Disp: 90 tablet Rfl: 3bimatoprost (LUMIGAN) 0.01 % drop ophthalmic drops Use 1 Drop in both eyesdaily at bedtime. Disp: Rfl: 0Lutein 10 mg tab Take 10 mg by mouth once daily. Disp: Rfl: 0Brimonidine-Timolol 0.2-0.5 % drop Use 1 Drop in both eyes twice daily.Disp: Rfl: 0multivitamin tablet Take 1 tablet by mouth once daily. Disp: Rfl:niacin sustained release 500 mg tablet Take 1 tablet by mouth daily atbedtime. Disp: 30 tablet Rfl: 11Aspirin 81 mg Tab Take 81 mg by mouth once daily. Disp: Rfl:Medications - No data to displayALLERGIESAllergen Reactions- Sensitive To Vioxx * STOMACH SORE, NAUSEASocial History:Social History Marital status: Spouse name: Years of education: Number of children:Social History Main Topics Smoking status: Never Smoker Smokeless tobacco: Never Used Alcohol use: No Drug use: NoROS:Constitutional: negative for chills and feversRespiratory: negative for hemoptysis and shortness of breathCardiovascular: negative for dyspnea and syncopeGastrointestinal: negative for jaundice, nausea and vomitingGenitourinary:negati ve for dysuria and hematuriaHematologic/lymphat ic: negative for bleeding and lymphadenopathyIntegumentary : no new bruises or lesionsMusculoskeletal:negat wilfredo for muscle weakness or painNeurological: negative for coordination problems and seizuresAll other systems negativePhysical Exam: [id number]: 110/57Pulse: (!) 54Resp: 18Temp: 36.1 ?C (97 ?F)SpO2: 100%General: Alert, in no acute distressHead: Normocephalic, atraumaticNeck: supple, trachea is midline, no obvious massesRespiratory: normal effort, no audible wheezesCardiovascular: regular pulse and no cyanosisMusculoskeletal: moving all extremities, normal toneSkin: warm and dryPsych: normal mood and affect, orientedAbdomen: soft, non distended, non tender, no organomegaly, no herniasGU: deferred to ORLabs:CBC:BMP:Invalid input(s): PHOSCoagulation:PT INR (no units)Date Value12/07/2003 2.8 APTT (sec)Date Value08/03/2003 70.7 Lactic acid: No components found for: LACTARadiology:CT Urogram 05/03IMPRESSION:9 mm mass/filling defect superior aspect of the urinary bladdersuggesting urinary bladder neoplasm.Bilateral renal cysts.No renal calculi or obstructive uropathy.Nonspecific hypodense lesion with calcifications posterior spleen.Right lung base atelectasis/scarring.Assessm ent and Plan:82 year old male with gross hematuria and bladder massPLAN:- OR for Cystoscopy, TURBT, Mitomycin Alma Rosa Weiss MD05/20/20187:34 AMAttending NoteI evaluated the patient and personally participated in the corral components. I agree with the resident's findings and plan as documented and havediscussed the case and management of the patient's care with the resident.Signature: Kirill Hernandez DO, MBADate: 05/20/2018Time: 2:03 PM [facility] NURSING PROGon 05-20-2018 Protein mass conc HNO ID: [id number] Author: Analilia (Rn) ERASTO Wright Service: (none) Author Type: Registered Nurse Type: Nursing Progress Note Filed: 05/20/2018 10:17 AM Note Text: 10/am castaneda d/c per Mitomycin protocol approx 200cc in castaneda bag [facility] Protein mass conc HNO ID: [id number] Author: Analilia (Rn) Kyle, ERASTO Service: (none) Author Type: Registered Nurse Type: Nursing Progress Note Filed: 05/20/2018 9:31 AM Note Text: 914/am castaneda unclamped per order to drain mitomycin [facility] OPERATIVE NOon 05-20-2018 OPERATIVE NO HNO ID: [id number] thor: Kirill Florian: UrologyAuthor Type: PhysicianType: Operative ReportFiled: 05/20/2018 2:05 PMNote Text:OPERATIVE/PROCEDURE REPORTLOG ID: [id number]/PROCEDURE DATE: 05/20/2018INCISION/PROCEDURE START TIME: 8:24 AMINCISION CLOSE/PROCEDURE END TIME: 8:48 AMSURGEON(S)/PROCEDURALIST(S ) AND HOTEL SALES MANAGER(S):Surgeon(s) and Role: * Kirill Hernandez - Primary * Britni (Dejah Weiss - Resident - AssistingNo Additional StaffSURGERY/PROCEDURE(S):Cy stoscopy, Transurethral Resection of Bladder Tumor- medium (<5cm),instillation of Mitomycin CANESTHESIA: GeneralSURGERY/PROCEDURE DETAILS:Patient was brought to the operating room. A thorough time out wasperformed and all present were in agreement. Patient was placed on ORtable and anesthesia induced. Airways and lines were maintained byanesthesia team. Patient was placed into dorsal lithotomy position.Pressure points were padded. Prepped and draped in usual sterile fashion.A cystourethroscope was inserted through the urethra. The entire bladderwas inspected using a 30 degree angled lens.- There was a moderate degree of trilobar hypertrophy with a prominentmedian lobe.- Bilateral ureteral orifices were noted in orthotopic position.- two sessile lesions were noted along the posterior bladder wall.-Next the cystourethroscope was exchanged for a continuous flowresectoscope sheath. This was placed using the guided obturator. Using theloop, the tumor was resected in its entirety from the top of the tumordown to the base. Care was taken to prevent bladder perforation. The depthof resection was aimed to achieve muscle in the pathology specimen butavoid perforation.- All tumor specimen was removed from the bladder. Hemostasis was achievedusing the electrocautery. The ureteral orifices were inspected and foundto be free of harm or injury. The resectoscope was removed.- A 16F castaneda catheter was inserted.- Mitomycin C was instilled through castaneda catheter and catheter clamped.The patient tolerated the procedure well.PRE-OP/PRE-PROCEDURE DIAGNOSIS: Bladder massPOST-OP/POST-PROCEDURE DIAGNOSIS: Bladder massESTIMATED BLOOD LOSS: 0 mlSPECIMENS: Bladder tumorIMPLANTABLE DEVICES: NoneDRAINS: NoneCOMPLICATIONS: NonePARTICIPATION IN SURGERY/PROCEDURE: The primary surgeon/proceduralistperform ed the procedure with assistance.SIGNATURE: Britni Weiss MD PATIENT NAME: Valdo FryeerDATE: May 20, 2018 : 7:30 AM PAGER/CONTACT #:I was present for the entire surgery including the critical and keyportions of the surgery and I was immediately available to provideassistance.Kirill Hernandez DO, MBA [facility] PROGRESSon 05-19-2018 Protein mass conc HNO ID: [id number] Author: Veronica Jordan Service: (none) Author Type: (none) Type: Progress Notes Filed: 05/19/2018 12:02 PM Note Text: I called Dr. Hernandez and left voicemail to crystal regarding consent. Lolita [facility] HOSPon 05-17-2018 HOSP Patient:Cata Gomez hlon CMRN: Height:6' .008(1.829 m)Weight:188 lb 0.8 oz (85.3 kg)Outpatient Medications as of 05/20/18:cyanocobalamin (VITAMIN B-12) 500 mcg tab tab(s)iv contrast (will be provided with radiology test)nitroglycerin sublingual (NITROSTAT) 0.4 mg SL tabletallopurinol (ZYLOPRIM) 300 mg tabletcarvedilol (COREG) 3.125 mg tabletpravastatin (PRAVACHOL) 20 mg tabletbimatoprost (LUMIGAN) 0.01 % drop ophthalmic dropsLutein 10 mg tabBrimonidine-Timolol 0.2-0.5 % dropmultivitamin tabletniacin sustained release 500 mg tabletAspirin 81 mg TabAdmission/Clinic Administered Medications as of 05/20/18:mitoMYcin solr 40 mg injectionlactated ringers infusionfentaNYL 50 mcg/mL 50 mcg injection (SUBLIMAZE)HYDROmorphone 0.5 mg injection (DILAUDID)oxyCODONE IR 5 mg tab(s) (ROXICODONE)ondansetron (PF) 4 mg injection (ZOFRAN)meperidine (PF) 12.5 mg injection (DEMEROL)Problem List:ASA CLASS II [1001]Essential hypertension, benign [I10]Osteoarthrosis, unspecified whether generalized or localized, unspecified site[M19.90]Chronic kidney disease, stage III (moderate) (HCC) [N18.3]CAD (coronary artery disease) [I25.10]Gout [M10.9]Pure hypercholesterolemia [E78.00]Bladder mass [N32.89]Gross hematuria [R31.0]Allergies:Sensitive To Vioxx [Other]Date Verified: 05/20/18Lab ValuesNo results within the last 30 days for the following basenames: K,HCTProgress Notes ():Veronica Jordan 05/19/2018 12:[address] Hernandez and left voicemail to crystal regarding consent.Karthik Weiss MD 05/20/2018 7:33 AM IncompleteOPERATIVE/PROCEDUR E REPORTLOG ID: [id number]/PROCEDURE DATE: 05/20/2018INCISION/PROCEDURE START TIME:INCISION CLOSE/PROCEDURE END TIME:SURGEON(S)/PROCEDURALIS T(S) AND HOTEL SALES MANAGER(S):Surgeon(s) and Role: * Kirill Hernandez - PrimaryAnabel Additional StaffSURGERY/PROCEDURE(S):Cy stoscopy, Transurethral Resection of Bladder Tumor, instillation of MitomycinCANESTHESIA: GeneralSURGERY/PROCEDURE DETAILS:Patient was brought to the operating room. A thorough time out was performed andall present were in agreement. Patient was placed on OR table and anesthesiainduced. Airways and lines were maintained by anesthesia team. Patient wasplaced into dorsal lithotomy position. Pressure points were padded. Prepped anddraped in usual sterile fashion. A cystourethroscope was inserted through theurethra. The entire bladder was inspected using a 30 degree angled lens.-Bilateral retrograde pyelograms were performed using a cone tip catheter. Thiswas done under flouroscopic visualization. -There were no filling defects or deformities noted. There was nohydronephrosis.-Next the cystourethroscope was exchanged for a continuous flow resectoscopesheath. This was placed using the guided obturator. Using the loop, the tumorwas resected in its entirety from the top of the tumor down to the base. Carewas taken to prevent bladder perforation. The depth of resection was aimed toachieve muscle in the pathology specimen but avoid perforation.- All tumor specimen was removed from the bladder. Hemostasis was achieved usingthe electrocautery. The ureteral orifices were inspected and found to be free ofharm or injury. The resectoscope was removed.- A castaneda catheter was inserted.- Mitomycin C was instilled through castaneda catheter and catheter clamped.The patient tolerated the procedure well.PRE-OP/PRE-PROCEDURE DIAGNOSIS: Bladder massPOST-OP/POST-PROCEDURE DIAGNOSIS: Bladder massESTIMATED BLOOD LOSS: 0 mlSPECIMENS: Bladder tumorIMPLANTABLE DEVICES: NoneDRAINS: NoneCOMPLICATIONS: NonePARTICIPATION IN SURGERY/PROCEDURE: The primary surgeon/proceduralist performedthe procedure with assistance.SIGNATURE: Britni Weiss MD PATIENT NAME: Valdo GomezDATE: May 20, 2018 : 7:30 AM PAGER/CONTACT #:Britni Weiss MD 05/20/2018 7:36 AM Cosign Needed Urology History and PhysicalDate: 05/20/2018Patient Name: Valdo GomezDate of : 1935dmit Date: 05/20/2018Age: 82 year oldMRN: [id number]: Tyra Munoz MDNo chief complaint on file.Narrative:The patient is a 82 year old male known to Dr. Hernandez for history of hematuriawith workup resulting in bladder mass seen on office cystoscopy.He presents for definitive management of his bladder mass.PAST MEDICAL HISTORYDiagnosis Date- Arthropathy, unspecified, site unspecified- CAD (coronary artery disease)- Essential hypertension, benign- History of recurrent deep vein thrombosis (DVT) 2002- Obesity, unspecified- Other premature beats- Unspecified hypertensive heart diseasePAST SURGICAL HISTORYProcedure Laterality Date- CATARACT EXTRACTION HX Bilateral 2013 lens implants- PERC TRANSL COR ANGIO 06/13/2010 Percutaneous Transluminal Coronary Angio Stent- REPAIR ING HERNIA,5+Y/O,REDUCIBL 1996 R side- REPAIR ING HERNIA,5+Y/O,REDUCIBL 08/18 L side- REVISE TOTAL HIP REPLACEMENT 07/19 R side- TONSILLECTOMY HX age 8- TOTAL HIP REPLACEMENT 02/16 L side- TOTAL HIP REPLACEMENT 1987 R sideNo family history on file.Outpatient Prescriptions Marked as Taking for the 05/20/18 encounter ([facility]):cyanocob alamin (VITAMIN B-12) 500 mcg tab tab(s) Take by mouth once daily. Disp:Rfl:nitroglycerin sublingual (NITROSTAT) 0.4 mg SL tablet Dissolve 1 tablet underthe tongue as needed. DISSOLVE ON TONGUE FOR CHEST PAIN. IF NO PAIN RELIEF,CALL 911 Disp: 1 Bottle of 25 Rfl: 1allopurinol (ZYLOPRIM) 300 mg tablet Take 1 tablet by mouth once daily. Disp: 90tablet Rfl: 3carvedilol (COREG) 3.125 mg tablet Take 1 tablet by mouth twice daily. Disp: 180tablet Rfl: 3pravastatin (PRAVACHOL) 20 mg tablet Take 1 tablet by mouth once daily. Disp: 90tablet Rfl: 3bimatoprost (LUMIGAN) 0.01 % drop ophthalmic drops Use 1 Drop in both eyes dailyat bedtime. Disp: Rfl: 0Lutein 10 mg tab Take 10 mg by mouth once daily. Disp: Rfl: 0Brimonidine-Timolol 0.2-0.5 % drop Use 1 Drop in both eyes twice daily. Disp:Rfl: 0multivitamin tablet Take 1 tablet by mouth once daily. Disp: Rfl:niacin sustained release 500 mg tablet Take 1 tablet by mouth daily at bedtime.Disp: 30 tablet Rfl: 11Aspirin 81 mg Tab Take 81 mg by mouth once daily. Disp: Rfl:Medications - No data to displayALLERGIESAllergen Reactions- Sensitive To Vioxx * STOMACH SORE, NAUSEASocial History:Social History Marital status: Spouse name: Years of education: Number of children:Social History Main Topics Smoking status: Never Smoker Smokeless tobacco: Never Used Alcohol use: No Drug use: NoROS:Constitutional: negative for chills and feversRespiratory: negative for hemoptysis and shortness of breathCardiovascular: negative for dyspnea and syncopeGastrointestinal: negative for jaundice, nausea and vomitingGenitourinary:negati ve for dysuria and hematuriaHematologic/lymphat ic: negative for bleeding and lymphadenopathyIntegumentary : no new bruises or lesionsMusculoskeletal:negat wilfredo for muscle weakness or painNeurological: negative for coordination problems and seizuresAll other systems negativePhysical Exam: 715BP: 110/57Pulse: (!) 54Resp: 18Temp: 36.1 ?C (97 ?F)SpO2: 100%General: Alert, in no acute distressHead: Normocephalic, atraumaticNeck: supple, trachea is midline, no obvious massesRespiratory: normal effort, no audible wheezesCardiovascular: regular pulse and no cyanosisMusculoskeletal: moving all extremities, normal toneSkin: warm and dryPsych: normal mood and affect, orientedAbdomen: soft, non distended, non tender, no organomegaly, no herniasGU: deferred to ORLabs:CBC:BMP:Invalid input(s): PHOSCoagulation:PT INR (no units)Date Value12/07/2003 2.8 APTT (sec)Date Value08/03/2003 70.7 Lactic acid: No components found for: LACTARadiology:CT Urogram 05/03IMPRESSION:9 mm mass/filling defect superior aspect of the urinary bladdersuggesting urinary bladder neoplasm.Bilateral renal cysts.No renal calculi or obstructive uropathy.Nonspecific hypodense lesion with calcifications posterior spleen.Right lung base atelectasis/scarring.Assessm ent and Plan:82 year old male with gross hematuria and bladder massPLAN:- OR for Cystoscopy, TURBT, Mitomycin Alma Rosa Weiss MD05/20/20187:34 Yolanda Colin MD 05/20/2018 7:40 AM Signed ANESTHESIOLOGY DAY OF SURGERY NOTESERVICE DATE: 05/20/2018SERVICE TIME: 7:38 AMDOB: 1935Procedure(s) (LRB):RESECTION BLADDER TUMOR TRANSURETHRAL (N/A)INSTILL ANTICARCINOGENIC AGENT IN BLADDER (N/A)Surgeon(s):Kirill HernandezEstimated body mass index is 25.5 kg/m? as calculated from the following: Height as of this encounter: 182.9 cm (6' 0.01). Weight as of this encounter: 85.3 kg (188 lb 0.8 oz).Most recent hematocrit and potassium results:Hematocrit 26.9 08/03/2003Potassium 4.1 03/29/2015NES DOS/PREOP NOTE:Vitals: 05/20/18077BP: 110/57Pulse: (!) 54Resp: 18Temp: 36.1 ?C (97 ?F)SpO2: 100%Weight: 85.3 kg (188 lb 0.8 oz)Height: 182.9 cm (6' 0.01)ACTIVE PROBLEM LISTAsa Class IIEssential Hypertension, BenignOsteoarthrosis, Unspecified Whether Generalized Or Localized, Unspecified SiteChronic Kidney Disease, Stage Iii (Moderate) (Hcc)Cad (Coronary Artery Disease)GoutPure HypercholesterolemiaBladder MassGross HematuriaPAST MEDICAL HISTORYDiagnosis Date- Arthropathy, unspecified, site unspecified- CAD (coronary artery disease)- Essential hypertension, benign- History of recurrent deep vein thrombosis (DVT) 2002- Obesity, unspecified- Other premature beats- Unspecified hypertensive heart diseasePAST SURGICAL HISTORYProcedure Laterality Date- CATARACT EXTRACTION HX Bilateral 2013 lens implants- PERC TRANSL COR ANGIO 06/13/2010 Percutaneous Transluminal Coronary Angio Stent- REPAIR ING HERNIA,5+Y/O,REDUCIBL 1996 R side- REPAIR ING HERNIA,5+Y/O,REDUCIBL 08/18 L side- REVISE TOTAL HIP REPLACEMENT 07/19 R side- TONSILLECTOMY HX age 8- TOTAL HIP REPLACEMENT 02/16 L side- TOTAL HIP REPLACEMENT 1987 R sideNo family history on file.Social History:Social HistorySubstance Use Topics- Smoking status: Never Smoker- Smokeless tobacco: Never Used- Alcohol use NoNo current facility-administered medications on file prior to encounter.Current Outpatient Prescriptions on File Prior to Encounter:nitroglycerin sublingual (NITROSTAT) 0.4 mg SL tablet Dissolve 1 tablet underthe tongue as needed. DISSOLVE ON TONGUE FOR CHEST PAIN. IF NO PAIN RELIEF,CALL 911allopurinol (ZYLOPRIM) 300 mg tablet Take 1 tablet by mouth once daily.carvedilol (COREG) 3.125 mg tablet Take 1 tablet by mouth twice daily.pravastatin (PRAVACHOL) 20 mg tablet Take 1 tablet by mouth once daily.bimatoprost (LUMIGAN) 0.01 % drop ophthalmic drops Use 1 Drop in both eyes dailyat bedtime.Lutein 10 mg tab Take 10 mg by mouth once daily.Brimonidine-Timolol 0.2-0.5 % drop Use 1 Drop in both eyes twice daily.multivitamin tablet Take 1 tablet by mouth once daily.niacin sustained release 500 mg tablet Take 1 tablet by mouth daily at bedtime.Aspirin 81 mg Tab Take 81 mg by mouth once daily.iv contrast (will be provided with radiology test) CT Urogram WO/W Inject,intravenously, once for 1 dose.No IV access, insert saline lock prior to thebeginning of sedation, infusion, injection of imaging exam. Discontinue salinelock post exam. If Pt. has a central line or IVAD, may access for administrationaccording to line specific nursing protocol. Once exam is complete flush lineand de-access according to line specific nursing protocol in the CT contrastadministration guidelines link.Current Facility-Administered Medications:mitoMYcin solr 40 mg injection 40 mg INTRAVESICAL ONCE Marwan (Res) AliAllergies:ALLERGIESAllerg en Reactions- Sensitive To Vioxx * STOMACH SORE, NAUSEADOS EXAM: Adequate NPO Status: YesAnesthetic Risks, Benefits, Alternatives, Personnel and Consent Discussed:YesPatient agrees to proceed: YesPrevious Anesthesia: No history of adverse eventAirway Assessment: MP 3; Neck ROM: Full ROM without neurologic symptoms; AirwayEvaluation: Small Mouth Opening and Alvarado PresentSymptoms of Sleep Apnea: Hypertension, Age over 50 (82 year old) and Male genderDentition: Teeth intactAdditional Physical Exam:Lungs: Patient health status unchanged since recent history and physical. Seehistory and physical for exam findings.Cardiac: Patient health status unchanged since recent history and physical. Seehistory and physical for exam findings.Additional Pertinent Findings: N/ABlood Products: Will accept Blood/Blood ProductsAnesthetic Plan: GeneralAnesthetic Monitoring: Standard ASA MonitorsPain Management Plan: Parenteral or OralASA Class: 3Other Medical Problems:CAD with stent 2009, took ASA on 05/18/2018 in MEXRD4Asppggi massChronic Beta Sung medication administered within 24 hours: Larry have interviewed and examined the patient. I have reviewed the medical recordand/or the pre-anesthesia evaluation, pertinent labs, and test results.Significant changes in the patient's condition since the History and Physical,not otherwise documented in primary service progress notes: [facility] contains updated information obtained within 48 hours of Surgery/Procedure.SIGNATURE: Duran Colin MD PATIENT NAME: Valdo GomezDATE: May 20, 2018 : 7:37 AM CSN: [id number] Notes ([facility]):Melissa Pineda Ma 05/13/2018 10:19 AM SignedPatient presents with:Cystoscopy-Edda Salinas RN 05/13/2018 11:01 AM SignedCCF Department of UrologyAfter your CystoscopyYou have undergone a cystoscopy. Your doctor has inserted a telescope into yoururinary bladder through your urethra to view the inside of your bladder.WHAT TO EXPECT:Possible burning during urination and /or blood tinged urine.WHAT TO DO:Resume normal activity and medications.Drink 6-8 glasses of fluid each day for 3 days to help flush your urinarysystem.MEDICATIONS:Yo u were given , a preventative antibiotic, prior to the procedure.WHEN TO CALL DOCTOR:IF you have a fever over 100 degrees Farenheit.IF you are unable to urinateIF blood clots form in your urineIF your urine becomes very bloody and does not clear with drinking extra fluids.Please call [facility] office at [phone] M-F 8:00 am to 5:00pmWith any questions you may have and ask for the Triage NurseAfter 5:00 pm or weekends [phone] you06/22/13 Jarret Salinas RN 05/13/2018 3:45 PM SignedAMBULATORY CYSTOSCOPY PROCEDUREPREOPERATIVE/PROCED URAL VERIFICATION:Patient verified by: Name and Date of BirthUNIVERSAL PROTOCOL / SAFETY CHECKLISTProcedure to be performed: CystoscopySign in Communication: CompletedTime Out: Team Confirms the Correct Patient, Correct Procedure, Correct Siteand Site Marking, Correct Position (if applicable), Prep and Dry Time (ifapplicable). Time: 1030Affirmation of Time Out: YESSign Out Discussion: CompletedMedications and allergies reviewed and updated.Latex Allergy:NoPre-Procedure Antibiotics: Cipro 500 mg orally, given during visit @ 1030 , Harley SalinasPre-Procedure Vital Signs: BP BP 121/71 Pulse (!) 56 Ht 182.9 cm (6') Wt 85.3 kg (188 lb) SpO2 99% BMI 25.50 kg/m?Current pain intensity is 0 on a scale of 0-10.Patient Prepped with Betadine Scrub to perineum and placement of sterile drape.Anesthetic Given:10cc 2% Lidocaine Jelly into Urethra.Instruction sheet given and reviewed: YesPatient verbalizes understanding: YesPost- procedure Vital Signs: B/P: 133/75 P: 55 R: 20Pain Ratin on a scale of 0 to 10.Specimens: obtained: Urine DipNurse: Brittany Salinas Rosa Hernandez DO, MBA 05/17/2018 2:24 PM Signed??[facility] InstituteSOU[facility] KID[facility] INSTITUTELOCATION: [address] [place] [id number] PROCEDURE NOTE:Valdo Gomez is a 82 year old male who presents with hematuria gross forcystoscopy.Pt ID verified with patient: YesProcedure verified with patient: YesProcedure confirmed with physician and support director: YesSign InHistory and Physical Exam reviewed and is unchanged. .Informed Consent Discussed: Yes. Risks, benefits, alternatives and personneldiscussed with patient who consents to proceed.Sign in Communication: CompletedTime Out: Team Confirms the Correct Patient, Correct Procedure; Cystoscopy,Correct Site and Site Marking, Correct Position (if applicable).Affirmation of Time Out: YesSign Out: Sign Out Discussion: CompletedPhysician: Kirill Hernandez DO, MBAA urinalysis was performed revealing no evidence of infection.The benefits, risks, alternatives of the cystoscopy procedure and personnel werediscussed with the patient. The verbal consent was obtained and the patientagrees to proceed.Procedure: The patient was placed on the procedure table in the supine positionand prepped and draped in the usual sterile fashion. 2% Lidocaine Jelly wasplaced per urethra as an anesthetic in the standard fashion. Once adequate localanesthesia was achieved, the tip of the flexible cystoscope was carefully placedinto the urethra under direct visual guidance. The scope was negotiated throughthe pendulous urethra to the level of the bulbar urethra with no evidence ofstricture. 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 Thebladder was entered and careful son endoscopy was carried out. The posterior,superior and lateral hernandez and dome of the bladder were all well visualized andthe scope was retroflexed upon itself. The findings were consistent with asessile papillary lesion posterior wall X 2, small lesions.At the conclusion of the procedure, the flexible cystoscope was removedatraumatically. 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.Bilateral renal cysts.No renal calculi or obstructive uropathy.Nonspecific hypodense lesion with calcifications posterior spleen.Right lung base atelectasis/scarring.ASSESSM ENT/PLAN:Gross hematuria8 mm bladder mass on CT urogram, no hydronephrosisNeeds TURBT with Mitomycin instillationSend urine cytologyRisks, benefits, alternatives and personnel discussed with patient who consentsto proceed.[facility]surjit Hernandez DO, MBACrystal Mathews 05/17/2018 2:56 PM SignedSpoke with pts and she took surgery information - She states sheunderstands and has no other questions -Surgery @ [facility] 05/20/2018 - [facility] Clinical Lists Update: Prelo admission specialist 03-27-2017 Albumin mass conc 3.8 g/dL [facility] Work Phone: ALP enzyme act/vol (Bld) 96 U/L [facility] Work Phone: ALT enzyme act/vol 16 U/L [facility] Work Phone: AST enzyme act/vol 26 U/L [facility] Work Phone: Bilirubin mass conc 1.1 mg/dL [facility] Work Phone: Calcium mass conc 9.1 mg/dL [facility] Work Phone: Chloride molar conc 103 mmol/L [facility] Work Phone: Cholesterol in HDL mass conc 40 mg/dL [facility] Work Phone: Cholesterol in LDL mass conc 65 mg/dL [facility] Work Phone: Cholesterol mass conc 120 mg/dL [facility] Work Phone: Cholesterol.total/Chol esterol in HDL mass ratio 3.0 {ratio} [facility] Work Phone: CO2 ppres (BldV) 30 mmol/L [facility] Work Phone: [phone] Creatinine mass conc 1.12 mg/dL High [facility] Work Phone: [phone] Globulin mass conc (S) 2.7 g/dL [facility] Work Phone: [phone] Glucose mass conc 98 mg/dL [facility] Work Phone: [phone] Potassium molar conc 4.4 mmol/L [facility] Work Phone: [phone] Protein mass conc 6.5 g/dL [facility] Work Phone: [phone] Sodium molar conc 140 mmol/L [facility] Work Phone: [phone] Triglyceride mass conc 73 mg/dL [facility] Work Phone: [phone] Urea nitrogen mass conc 24 mg/dL [facility] Work Phone: [phone] Urea nitrogen/Creatinine mass ratio 21.5 mg/mg [facility] Work Phone: [phone] Office Visiton 02-24-2017 Documentation of current medications (procedure) Done Invalid Interpretation Code [facility] Work Phone: [phone] Fall risk assessment No [facility] Work Phone: [phone] Protein mass conc Done [facility] Work Phone: [phone] Clinical Lists Update: Pre admission specialist 02-23-2017 Left ventricular Ejection fraction 65 % [facility] Work Phone: [phone] Clinical Lists Update: Pre admission specialist 09-29-2016 Albumin mass conc 3.7 g/dL Invalid Interpretation Code [facility] Work Phone: [phone] Alkaline phosphatase (ALP) 81 U/L Invalid Interpretation Code [facility] Work Phone: [phone] ALP enzyme act/vol (Bld) 81 U/L [facility] Work Phone: [phone] ALT enzyme act/vol 13 U/L Invalid Interpretation Code [facility] Work Phone: [phone] AST enzyme act/vol 23 U/L Invalid Interpretation Code [facility] Work Phone: [phone] Bilirubin mass conc 1.1 mg/dL Invalid Interpretation Code [facility] Work Phone: Calcium mass conc 9.1 mg/dL Invalid Interpretation Code [facility] Work Phone: Chloride molar conc 103 mmol/L Invalid Interpretation Code [facility] Work Phone: Cholesterol in HDL mass conc 47 mg/dL Invalid Interpretation Code [facility] Work Phone: [phone] Cholesterol in LDL mass conc 65 mg/dL Invalid Interpretation Code [facility] Work Phone: [phone] Cholesterol mass conc 124 mg/dL [facility] Work Phone: Cholesterol.total/Chol esterol in HDL mass ratio 2.6 {ratio} Invalid Interpretation Code [facility] Work Phone: [phone] CO2 31 mmol/L Invalid Interpretation Code [facility] Work Phone: [phone] CO2 ppres (BldV) 31 mmol/L [facility] Work Phone: [phone] Creatinine mass conc 1.03 mg/dL Invalid Interpretation Code [facility] Work Phone: [phone] Globulin 2.5 g/dL Invalid Interpretation Code [facility] Work Phone: [phone] Globulin mass conc (S) 2.5 g/dL [facility] Work Phone: Glucose 103 mg/dL High [facility] Work Phone: Glucose mass conc 103 mg/dL High [facility] Work Phone: Potassium molar conc 4.7 mmol/L Invalid Interpretation Code [facility] Work Phone: Protein mass conc 6.2 g/dL Invalid Interpretation Code [facility] Work Phone: Sodium molar conc 142 mmol/L Invalid Interpretation Code [facility] Work Phone: Triglyceride mass conc 61 mg/dL Invalid Interpretation Code [facility] Work Phone: Urea nitrogen mass conc 21 mg/dL Invalid Interpretation Code [facility] Work Phone: [phone] Urea nitrogen/Creatinine mass ratio 19.9 mg/mg Invalid Interpretation Code [facility] Work Phone: [phone] Office Visiton 08-26-2016 Protein mass conc Done [facility] Work Phone: [phone] Replaced Document: Eliecer OSBORNE Observationson 08-26-2016 EKG QRS axis 58 deg [facility] Work Phone: electrocardiogram interpretation Possible atrial fibrillation - frequent ectopic ventricular beat s # VECs = 2Low voltage in limb leads. -Old anteroseptal infarct. ABNORMAL Invalid Interpretation Code [facility] Work Phone: GE use only - for LinkLogic import when terms are not otherwise specified 411 ms Invalid Interpretation Code [facility] Work Phone: [phone] Interpretation Possible atrial fibr illation - frequent ectopic ventricular beat s # VECs = 2Low voltage in limb leads. -Old anteroseptal infarct. ABNORMAL [facility] Work Phone: P Kent 1 deg [facility] Work Phone: P wave axis, electrocardiogram 1 deg Invalid Interpretation Code [facility] Work Phone: WV Interval 0 ms [facility] Work Phone: WV interval, electrocardiogram 0 ms Invalid Interpretation Code [facility] Work Phone: Pulse (Heart Rate) 58 /min Invalid Interpretation Code [facility] Work Phone: QRS axis, electrocardiogram 58 deg Invalid Interpretation Code [facility] Work Phone: QRS Duration 96 ms [facility] Work Phone: QRS duration, electrocardiogram 96 ms Invalid Interpretation Code [facility] Work Phone: QT Interval new path ms [facility] Work Phone: QT interval, electrocardiogram new path ms Invalid Interpretation Code [facility] Work Phone: QTc Aguilera 411 ms [facility] Work Phone: T Kent 29 deg [facility] Work Phone: T wave axis, electrocardiogram 29 deg Invalid Interpretation Code [facility] Work Phone: External Other: Preferred Me thod of Contacton 08-21-2015 methcontact phone [facility] Work Phone: [phone] Patient's prefered method of contact phone Invalid Interpretation Code [facility] Work Phone: [phone] Office Visiton 08-21-2015 Tobacco smoking status NHIS Never smoker [facility] Work Phone: [phone] Tobacco use CPHS Never smoker Invalid Interpretation Code [facility] Work Phone: [phone] Clinical Lists Update: Prelo admission specialist 03-29-2015 Anion gap 9 mmol/L Invalid Interpretation Code [facility] Work Phone: [phone] Anion gap molar conc 9 mmol/L [facility] Work Phone: [phone] Cholesterol in LDL/Cholesterol in HDL mass ratio 1.64 [facility] Work Phone: [phone] Lipoprotein.pre-beta mass conc 13 mg/dL [facility] Work Phone: [phone] Office Visiton 08-21-2014 cardiac risk group C [facility] Work Phone: General cardiovascular disease 10Y risk [#] [place].D'Agozuhair N/A [facility] Work Phone: Replaced Document: Eliecer OSBORNE Observationson 08-25-2013 Pulse (Heart Rate) 417 ms Invalid Interpretation Code [facility] Work Phone: Clinical Lists Update: Pre admission specialist 03-17-2013 GFR/1.73 sq M predicted among non-blacks MDRD vol rate/area (S/P/Bld) mL/min/{1.73_m2} [facility] Work Phone: [phone] Glomerular Filtration Rate >60 [facility] Work Phone: [phone] Vital Signs Date Time Vital Sign Value Performing Clinician Facility 02-27-2025 18:17-0400 Body temperature 97.8 [degF] Dr. Tyra Munoz MD Work Phone: [facility] 02-27-2025 18:17-0400 Diastolic blood pressure 58 mm[Hg] Dr. Tyra Munoz MD Work Phone: [facility] 02-27-2025 18:17-0400 Heart rate 93 /min Dr. Tyra Munoz MD Work Phone: 5(903)854-060068 [place] [address] 02-27-2025 18:17-0400 Inhaled oxygen flow rate 4 L/min Dr. Tyra Munoz MD Work Phone: 9(517)553-146068 [place] [address] 02-27-2025 18:17-0400 Respiratory rate 22 /min Dr. Tyra Munoz MD Work Phone: 0(498)232-917068 [place] [address] 02-27-2025 18:17-0400 SaO2% (BldA) [Mass fraction] 95 % Dr. Tyra Munoz MD Work Phone: 4(805)847-947268 [place] [address] 02-27-2025 18:17-0400 Systolic blood pressure 90 mm[Hg] Dr. Tyra Munoz MD Work Phone: 0(762)691-153468 [place] [address] 02-27-2025 14:45-0400 Body height 182.[address] Tyra Munoz MD Work Phone: 1(072)922-767868 [place] [address] 02-27-2025 14:45-0400 Body mass index (BMI) [Ratio] 23.4 kg/m2 Dr. Tyra Munoz MD Work Phone: [facility] 02-27-2025 14:45-0400 Body weight 78.[address] Tyra Munoz MD Work Phone: [facility] 02-24-2025 14:23-0400 Diastolic blood pressure 50 mm[Hg] Tyra Munoz MD Work Phone: [facility] 02-24-2025 14:23-0400 Heart rate 108 /min Tyra Munoz MD Work Phone: [facility] 02-24-2025 14:23-0400 Respiratory rate 16 /min Tyra Munoz MD Work Phone: [facility] 02-24-2025 14:23-0400 SaO2% (BldA) [Mass fraction] 90 % Tyra Munoz MD Work Phone: [facility] 02-24-2025 14:23-0400 Systolic blood pressure 80 mm[Hg] Tyra Munoz MD Work Phone: [facility] 02-15-2025 15:08-0400 Body height 182.[address] Tyra Munoz MD Work Phone: 6(522)154-020168 [place] [address] 02-15-2025 15:08-0400 Body mass index (BMI) [Ratio] 22.5 kg/m2 Dr. Tyra Munoz MD Work Phone: 4(428)066-140968 [place] [address] 02-15-2025 15:08-0400 Body weight 75.[address] Tyra Munoz MD Work Phone: 6(656)997-921268 [place] [address] 02-15-2025 15:08-0400 Diastolic blood pressure 58 mm[Hg] Dr. Tyra Munoz MD Work Phone: 1(740)579-445068 [place] [address] 02-15-2025 15:08-0400 Heart rate 76 /min Dr. Tyra Munoz MD Work Phone: 1(811)040-709568 [place] [address] 02-15-2025 15:08-0400 Respiratory rate 18 /min Dr. Tyra Munoz MD Work Phone: 5(511)051-187668 [place] [address] 02-15-2025 15:08-0400 SaO2% (BldA) [Mass fraction] 92 % Dr. Tyra Munoz MD Work Phone: 2(095)998-163168 [place] [address] 02-15-2025 15:08-0400 Systolic blood pressure 92 mm[Hg] Dr. Tyra Munoz MD Work Phone: 8(848)863-142968 [place] [address] 02-13-2025 15:00-0400 Body temperature 97.4 [degF] Dr. Tyra Munoz MD Work Phone: 8(489)731-045068 [place] [address] 02-13-2025 15:00-0400 Diastolic blood pressure 78 mm[Hg] Dr. Tyra Munoz MD Work Phone: 8(210)009-828668 [place] [address] 02-13-2025 15:00-0400 Heart rate 87 /min Dr. Tyra Munoz MD Work Phone: 0(112)010-371768 [place] [address] 02-13-2025 15:00-0400 SaO2% (BldA) [Mass fraction] 98 % Dr. Tyra Munoz MD Work Phone: 2(617)109-635068 [place] [address] 02-13-2025 15:00-0400 Systolic blood pressure 115 mm[Hg] Dr. Tyra Munoz MD Work Phone: 2(502)327-230768 [place] [address] 02-13-2025 10:46-0400 Body height 182.[address] Tyra Munoz MD Work Phone: 4(627)480-646568 [place] [address] 02-13-2025 10:46-0400 Body weight 79.[address] Tyra Munoz MD Work Phone: 8(679)822-992268 [place] [address] 02-13-2025 10:00-0400 Body temperature 97.5 [degF] Dr. Tyra Munoz MD Work Phone: 8(359)171-900768 [place] [address] 02-13-2025 10:00-0400 Diastolic blood pressure 88 mm[Hg] Dr. Tyra Munoz MD Work Phone: 9(641)550-080168 [place] [address] 02-13-2025 10:00-0400 Heart rate 88 /min Dr. Tyra Munoz MD Work Phone: 1(642)029-792768 [place] [address] 02-13-2025 10:00-0400 Respiratory rate 16 /min Dr. Tyra Munoz MD Work Phone: 4(434)653-924068 [place] [address] 02-13-2025 10:00-0400 SaO2% (BldA) [Mass fraction] 97 % Dr. Tyra Munoz MD Work Phone: 5(739)104-290468 [place] [address] 02-13-2025 10:00-0400 Systolic blood pressure 118 mm[Hg] Dr. Tyra Munoz MD Work Phone: 6(275)613-278768 [place] [address] 02-13-2025 03:49-0400 Body mass index (BMI) [Ratio] 23.6 kg/m2 Dr. Tyra Munoz MD Work Phone: 2(482)929-488368 [place] [address] 02-09-2025 16:14-0400 Body temperature 98.7 [degF] Dr. Tyra Munoz MD Work Phone: 2(211)611-305544 [place] [address] 02-09-2025 16:14-0400 Diastolic blood pressure 64 mm[Hg] Dr. Tyra Munoz MD Work Phone: 7(113)511-267668 [place] [address] 02-09-2025 16:14-0400 Heart rate 68 /min Dr. Tyra Munoz MD Work Phone: 2(035)037-378568 [place] [address] 02-09-2025 16:14-0400 Respiratory rate 16 /min Dr. Tyra Munoz MD Work Phone: 3(748)196-436668 [place] [address] 02-09-2025 16:14-0400 SaO2% (BldA) [Mass fraction] 94 % Dr. Tyra Munoz MD Work Phone: 2(230)057-861268 [place] [address] 02-09-2025 16:14-0400 Systolic blood pressure 91 mm[Hg] Dr. Tyra Munoz MD Work Phone: 6(890)139-106368 [place] [address] 02-09-2025 14:00-0400 Inhaled oxygen flow rate 2 L/min Dr. Tyra Munoz MD Work Phone: 3(441)993-090268 [place] [address] 02-09-2025 11:21-0400 Body height 182.[address] Tyra Munoz MD Work Phone: 8(456)084-858344 [place] [address] 02-03-2025 14:25-0400 Body mass index (BMI) [Ratio] 22.89 kg/m2 Tyra Munoz MD Work Phone: [facility] 02-03-2025 14:25-0400 Body weight 70.31 kg Tyra Munoz MD Work Phone: [facility] 02-03-2025 14:25-0400 Diastolic blood pressure 68 mm[Hg] Tyra Munoz MD Work Phone: [facility] 02-03-2025 14:25-0400 Heart rate 64 /min Tyra Munoz MD Work Phone: [facility] 02-03-2025 14:25-0400 Respiratory rate 14 /min Tyra Munoz MD Work Phone: [facility] 02-03-2025 14:25-0400 SaO2% (BldA) [Mass fraction] 92 % Tyra Munoz MD Work Phone: [facility] 02-03-2025 14:25-0400 Systolic blood pressure 102 mm[Hg] Tyra Munoz MD Work Phone: [facility] 01-27-2025 15:38-0400 Body height 177.[address] Tyra Munoz MD Work Phone: [facility] 01-27-2025 15:38-0400 Body mass index (BMI) [Ratio] 23.8 kg/m2 Dr. Tyra Munoz MD Work Phone: [facility] 01-27-2025 15:38-0400 Body weight 75.[address] Tyra Munoz MD Work Phone: [facility] 01-27-2025 15:38-0400 Diastolic blood pressure 76 mm[Hg] Dr. Tyra Munoz MD Work Phone: [facility] 01-27-2025 15:38-0400 Heart rate 76 /min Dr. Tyra Munoz MD Work Phone: [facility] 01-27-2025 15:38-0400 Respiratory rate 20 /min Dr. Tyra Munoz MD Work Phone: [facility] 01-27-2025 15:38-0400 Systolic blood pressure 119 mm[Hg] Dr. Tyra Munoz MD Work Phone: [facility] 01-19-2025 11:49-0400 Body mass index (BMI) [Ratio] 25.7 kg/m2 Tyra Munoz MD Work Phone: [facility] 01-19-2025 11:49-0400 Body weight 78.93 kg Tyra Munoz MD Work Phone: [facility] Comment on above: 174 lb on home scale. 01-19-2025 11:49-0400 Diastolic blood pressure 62 mm[Hg] Tyra Munoz MD Work Phone: [facility] 01-19-2025 11:49-0400 Heart rate 62 /min Tyra Munoz MD Work Phone: [facility] 01-19-2025 11:49-0400 Respiratory rate 18 /min Tyra Munoz MD Work Phone: [facility] 01-19-2025 11:49-0400 SaO2% (BldA) [Mass fraction] 95 % Tyra Munoz MD Work Phone: [facility] Comment on above: 95-98 01-19-2025 11:49-0400 Systolic blood pressure 106 mm[Hg] Tyra Munoz MD Work Phone: [facility] 01-09-2025 15:28-0400 Body temperature 99.1 [degF] Dr. Tyra Muonz MD Work Phone: [facility] 01-09-2025 15:28-0400 Diastolic blood pressure 70 mm[Hg] Dr. Tyra Munoz MD Work Phone: [facility] 01-09-2025 15:28-0400 Heart rate 64 /min Dr. Tyra Munoz MD Work Phone: [facility] 01-09-2025 15:28-0400 Inhaled oxygen flow rate 2 L/min Dr. Tyra Munoz MD Work Phone: [facility] 01-09-2025 15:28-0400 Respiratory rate 18 /min Dr. Tyra Munoz MD Work Phone: [facility] 01-09-2025 15:28-0400 SaO2% (BldA) [Mass fraction] 98 % Dr. Tyra Munoz MD Work Phone: [facility] 01-09-2025 15:28-0400 Systolic blood pressure 109 mm[Hg] Dr. Tyra Munoz MD Work Phone: [facility] 01-09-2025 06:00-0400 Body mass index (BMI) [Ratio] 27.8 kg/m2 Dr. Tyra Munoz MD Work Phone: [facility] 01-09-2025 06:00-0400 Body weight 87.[address] Tyra Munoz MD Work Phone: [facility] 01-06-2025 16:57-0400 Body height 177.[address] Tyra Munoz MD Work Phone: [facility] 12-27-2024 10:02-0400 Diastolic blood pressure 74 mm[Hg] Tyra Munoz MD Work Phone: [facility] 12-27-2024 10:02-0400 Heart rate 72 /min Tyra Munoz MD Work Phone: [facility] 12-27-2024 10:02-0400 Respiratory rate 18 /min Tyra Munoz MD Work Phone: [facility] 12-27-2024 10:02-0400 SaO2% (BldA) [Mass fraction] 96 % Tyra Munoz MD Work Phone: [facility] Comment on above: 96-97 12-27-2024 10:02-0400 Systolic blood pressure 120 mm[Hg] Tyra Munoz MD Work Phone: [facility] 12-07-2024 16:15-0400 Body temperature 97.8 [degF] Dr. Tyra Munoz MD Work Phone: [facility] 12-07-2024 16:15-0400 Diastolic blood pressure 80 mm[Hg] Dr. Tyra Munoz MD Work Phone: [facility] 12-07-2024 16:15-0400 Heart rate 61 /min Dr. Tyra Munoz MD Work Phone: [facility] 12-07-2024 16:15-0400 Respiratory rate 19 /min Dr. Tyra Munoz MD Work Phone: [facility] 12-07-2024 16:15-0400 SaO2% (BldA) [Mass fraction] 97 % Dr. Tyra Munoz MD Work Phone: [facility] 12-07-2024 16:15-0400 Systolic blood pressure 120 mm[Hg] Dr. Tyra Munoz MD Work Phone: [facility] 12-07-2024 15:22-0400 Body mass index (BMI) [Ratio] 31.8 kg/m2 Dr. Tyra Munoz MD Work Phone: [facility] 12-07-2024 15:22-0400 Body weight 100.[address] Tyra Munoz MD Work Phone: [facility] 12-07-2024 13:34-0400 Inhaled oxygen flow rate 2 L/min Dr. Tyra Munoz MD Work Phone: [facility] 12-07-2024 11:33-0400 Body mass index (BMI) [Ratio] 30.83 kg/m2 Heather Podlogar NEURO OPHTHALMOLOGIST.JUNIOR MECHANICAL ENGINEER Work Phone: [facility] 12-07-2024 11:33-0400 Body temperature 96.6 [degF] Heather Podlogar NEURO OPHTHALMOLOGIST.JUNIOR MECHANICAL ENGINEER Work Phone: [facility] 12-07-2024 11:33-0400 Body weight 94.71 kg Heather Podlogar NEURO OPHTHALMOLOGIST.JUNIOR MECHANICAL ENGINEER Work Phone: [facility] 12-07-2024 11:33-0400 Diastolic blood pressure 64 mm[Hg] Heather Podlogar NEURO OPHTHALMOLOGIST.JUNIOR MECHANICAL ENGINEER Work Phone: [facility] 12-07-2024 11:33-0400 Heart rate 75 /min Heather Podlogar NEURO OPHTHALMOLOGIST.JUNIOR MECHANICAL ENGINEER Work Phone: [facility] 12-07-2024 11:33-0400 Respiratory rate 26 /min Heather Podlogar NEURO OPHTHALMOLOGIST.JUNIOR MECHANICAL ENGINEER Work Phone: [facility] 12-07-2024 11:33-0400 SaO2% (BldA) [Mass fraction] 98 % Heather Podlogar NEURO OPHTHALMOLOGIST.JUNIOR MECHANICAL ENGINEER Work Phone: [facility] 12-07-2024 11:33-0400 Systolic blood pressure 106 mm[Hg] Heather Bella NEURO OPHTHALMOLOGIST.JUNIOR MECHANICAL ENGINEER Work Phone: [facility] 11-29-2024 10:00-0400 Diastolic blood pressure 65 mm[Hg] Steffen Golias PT Work Phone: [facility] 11-29-2024 10:00-0400 Heart rate 65 /min Steffen Golias PT Work Phone: [facility] 11-29-2024 10:00-0400 Systolic blood pressure 103 mm[Hg] Steffen Golias PT Work Phone: [facility] 11-14-2024 12:46-0400 Body mass index (BMI) [Ratio] 28.42 kg/m2 Tyra Munoz MD Work Phone: [facility] 11-14-2024 12:46-0400 Body weight 87.3 kg Tyra Munoz MD Work Phone: [facility] 11-14-2024 12:46-0400 Diastolic blood pressure 76 mm[Hg] Tyra Munoz MD Work Phone: [facility] 11-14-2024 12:46-0400 Heart rate 70 /min Tyra Munoz MD Work Phone: [facility] 11-14-2024 12:46-0400 Respiratory rate 18 /min Tyra Munoz MD Work Phone: [facility] 11-14-2024 12:46-0400 Systolic blood pressure 110 mm[Hg] Tyra Munoz MD Work Phone: [facility] 05-16-2024 13:40-0400 Body height 175.3 cm Tyra Munoz MD Work Phone: [facility] 05-16-2024 13:40-0400 Body mass index (BMI) [Ratio] 27.64 kg/m2 Tyra Munoz MD Work Phone: [facility] 05-16-2024 13:40-0400 Body weight 84.9 kg Tyra Munoz MD Work Phone: [facility] 05-16-2024 13:40-0400 Diastolic blood pressure 72 mm[Hg] Tyra Munoz MD Work Phone: [facility] 05-16-2024 13:40-0400 Heart rate 68 /min Tyra Munoz MD Work Phone: [facility] 05-16-2024 13:40-0400 Respiratory rate 18 /min Tyra Munoz MD Work Phone: [facility] 05-16-2024 13:40-0400 Systolic blood pressure 124 mm[Hg] Tyra Munoz MD Work Phone: [facility] 05-14-2023 15:55-0400 Body weight 82.1 kg Tyra Munoz MD Work Phone: [facility] 05-14-2023 15:55-0400 Diastolic blood pressure 78 mm[Hg] Tyra Munoz MD Work Phone: [facility] 05-14-2023 15:55-0400 Heart rate 72 /min Tyra Munoz MD Work Phone: [facility] 05-14-2023 15:55-0400 Respiratory rate 18 /min Tyra Munoz MD Work Phone: [facility] 05-14-2023 15:55-0400 Systolic blood pressure 126 mm[Hg] Tyra Munoz MD Work Phone: [facility] 11-03-2022 13:26-0400 Body weight 83.1 kg Tyra Munoz MD Work Phone: [facility] 11-03-2022 13:26-0400 Diastolic blood pressure 76 mm[Hg] Tyra Munoz MD Work Phone: [facility] 11-03-2022 13:26-0400 Heart rate 66 /min Tyra Munoz MD Work Phone: [facility] 11-03-2022 13:26-0400 Respiratory rate 16 /min Tyra Munoz MD Work Phone: [facility] 11-03-2022 13:26-0400 Systolic blood pressure 120 mm[Hg] Tyra Munoz MD Work Phone: [facility] 02-24-2017 12:07-0400 BMI (Body Mass Index) 25.77 kg/m2 [facility] Work Phone: 02-24-2017 12:07-0400 BP Diastolic 50 mm[Hg] [facility] Work Phone: 02-24-2017 12:07-0400 BP Systolic 98 mm[Hg] [facility] Work Phone: 02-24-2017 [id number] Height 182.88 cm [facility] Work Phone: 02-24-2017 12:07-0400 Pulse (Heart Rate) 60 /min [facility] Work Phone: 02-24-2017 12:07-0400 Respiratory Rate 15 /min [facility] Work Phone: 02-24-2017 12:07-0400 Weight 86.18 kg [facility] Work Phone: 08-26-2016 14:22-0500 Heart rate 58 /min Francesca Mulligan RN [facility] Work Phone: 08-26-2016 13:54-0500 BMI (Body Mass Index) 25.77 kg/m2 Francesca Mulligan RN [facility] Work Phone: 08-26-2016 13:54-0500 BP Diastolic 60 mm[Hg] Francesca Mulligan RN [facility] Work Phone: 08-26-2016 13:54-0500 BP Systolic 140 mm[Hg] Francesca Mulligan RN [facility] Work Phone: 08-26-2016 13:54-0500 BSA (Body Surface Area) 2.09 m2 Francesca Mulligan RN [facility] Work Phone: 08-26-2016 13:54-0500 Height 182.88 cm [facility] Work Phone: 08-26-2016 13:54-0500 Pulse (Heart Rate) 58 /min Francesca Mulligan RN [facility] Work Phone: 08-26-2016 13:54-0500 Respiratory Rate 18 /min Francesca Mulligan RN [facility] Work Phone: 08-26-2016 13:54-0500 Weight 86.18 kg Francesca Mulligan RN [facility] Work Phone: 08-25-2013 14:48-0500 Heart rate 417 ms Francesca Mulligan RN [facility] Work Phone: Encounters Encounter Date Encounter Type Care Provider Facility Start: 02-27-2025 Evaluation and management of inpatient Dr. León Mckeon MD -Progressive Care Unit Work Phone: Start: 02-24-2025 End: 02-24-2025 Office outpatient visit 25 minutes Tyra Munoz MD Work Phone: [facility] Comment on above: Essential hypertensi on, benign; Stage 3 chronic kidney disease, unspecified whether stage 3a or 3b CKD (HCC); Coronary artery disease involving [place] coronary artery of [place] heart without angina pectoris; Acute congestive heart failure, unspecified heart failure type (HCC); Atrial fibrillation, unspecified type (HCC); Loss of appetite; Diarrhea, unspecified type Start: 02-20-2025 End: 02-20-2025 Telephone encounter Tyra Munoz MD Work Phone: [facility] Start: 02-15-2025 End: 02-15-[address] Isidro Wong MD -[facility] Work Phone: Start: 02-15-2025 End: 02-15-[address] Tyra Munoz MD Work Phone: [facility] Start: 02-15-2025 End: 02-16-2025 Telephone encounter Tyra Munoz MD Work Phone: [facility] Comment on above: Medication request f or appetite Start: 02-13-2025 Non-patient / Non-visit Dr. Cata Ridley [facility] Work Phone: Start: 02-12-2025 Non-patient / Non-visit Dr. Cata Ridley [facility] Work Phone: Start: 02-10-2025 Non-patient / Non-visit Dr. Cata Ridley [facility] Work Phone: Start: 02-09-2025 ambulatory Ariela Luciano Facility:[facility] Start: 02-09-2025 End: 02-13-2025 Evaluation and management of inpatient Dr. Ariela Luciano MD -Intensive Care Unit Work Phone: Start: 02-09-2025 End: 02-09-2025 Telephone encounter Tyra Munoz MD Work Phone: [facility] Comment on above: Patient Update Start: 02-03-2025 End: 02-03-2025 Office outpatient visit 25 minutes Tyra Munoz MD Work Phone: [facility] Comment on above: Acute congestive hea rt failure, unspecified heart failure type (HCC) (Primary Dx); Atrial fibrillation, unspecified type (HCC); Essential hypertension, benign; Stage 3 chronic kidney disease, unspecified whether stage 3a or 3b CKD (HCC); Skin ulcer, limited to breakdown of skin (HCC) Start: 02-03-2025 End: 02-03-2025 ambulatory TYRA MUNOZ Facility:[facility] Start: 01-27-2025 End: 01-27-2025 Patient encounter procedure Shante MACIEL -[facility] Work Phone: Start: 01-27-2025 End: 01-27-[address] Tyra Munoz MD Work Phone: [facility] Work Phone: Start: 01-27-2025 End: 01-27-2025 ambulatory Shante MACIEL Facility:[facility] Start: 01-24-2025 End: 01-24-2025 Refill Tyra Munoz MD Work Phone: [facility] Comment on above: Refill Request Start: 01-20-2025 End: 01-26-2025 Follow-up encounter Tyra Munoz MD Work Phone: [facility] Comment on above: Results Start: 01-19-2025 End: 01-19-2025 ambulatory TYRA MUNOZ Facility:[facility] Start: 01-19-2025 End: 01-19-2025 ambulatory TYRA MUNOZ Facility:[facility] Start: 01-19-2025 End: 01-19-2025 Office outpatient visit 25 minutes Tyra Munoz MD Work Phone: [facility] Comment on above: Acute congestive hea rt failure, unspecified heart failure type (HCC) (Primary Dx); Essential hypertension, benign; Stage 3 chronic kidney disease, unspecified whether stage 3a or 3b CKD (HCC); Coronary artery disease involving [place] coronary artery of [place] heart without angina pectoris; Atrial fibrillation, unspecified type (HCC) Start: 01-09-2025 Non-patient / Non-visit Dr. Abundio sterling MD -[facility] Work Phone: Start: 01-08-2025 Non-patient / Non-visit Dr. Abundio sterling MD -[facility] Work Phone: Start: 01-07-2025 Non-patient / Non-visit Dr. Abundio sterling MD -[facility] Work Phone: Start: 01-07-2025 ambulatory Broderick Watt Facility:[facility] Start: 01-07-2025 Non-patient / Non-visit [facility]. Viki TREJO [facility] Start: 01-06-2025 End: 01-09-2025 Evaluation and management of inpatient Dr. Abundio Hurtado MD -Progressive Care Unit Work Phone: Start: 01-06-2025 ambulatory Abundio Hurtado Facility:[facility] Start: 12-27-2024 End: 12-27-2024 Office outpatient visit 25 minutes Tyra Munoz MD Work Phone: [facility] Comment on above: Hospital discharge f ollow-up (Primary Dx); Acute congestive heart failure, unspecified heart failure type (HCC); Atrial fibrillation, unspecified type (HCC); Acute renal insufficiency; Bilateral leg edema; SOB (shortness of breath) Start: 12-27-2024 End: 12-27-2024 ambulatory TYRA MUNOZ Facility:[facility] Start: 12-23-2024 End: 12-24-2024 Telephone encounter Tyra Munoz MD Work Phone: [facility] Comment on above: Appointment Start: 12-07-2024 End: 12-07-2024 Emergency department patient visit Dr. Colin Lee MD -Emergency Department Work Phone: Start: 12-07-2024 End: 12-07-2024 Patient encounter procedure Heather Blanco APRN.JUNIOR MECHANICAL ENGINEER Work Phone: [facility] Comment on above: SOB (shortness of br eath) (Primary Dx); Bilateral leg edema; Weight gain; Abnormal EKG Start: 12-07-2024 End: 12-07-2024 ambulatory Tyra Munoz MD Work Phone: [facility] Comment on above: Shortness of Breath; Bilateral Leg Swelling Start: 11-29-2024 End: 11-29-2024 ambulatory Steffen FortyCloudias PT Work Phone: [facility] Comment on above: Physical decondition ing; Gait abnormality Start: 11-14-2024 End: 11-14-2024 ambulatory TYRA MUNOZ Facility:[facility] Start: 11-14-2024 End: 11-14-2024 Office outpatient visit 25 minutes Tyra Munoz MD Work Phone: [facility] Comment on above: BENIGN HYPERTENSION (Primary Dx); Pure hypercholesterolemia; Idiopathic gout, unspecified chronicity, unspecified site; Coronary artery disease involving [place] coronary artery of [place] heart without angina pectoris; Elevated glucose; Stage 3 chronic kidney disease, unspecified whether stage 3a or 3b CKD (HCC); S/P bilateral hip replacements; Physical deconditioning; Gait abnormality Start: 11-02-2024 End: 11-02-2024 ambulatory TYRA MUNOZ Facility:[facility] Start: 08-26-2024 End: 08-26-2024 Refill Tyra Munoz MD Work Phone: [facility] Comment on above: Refill Request Start: 05-16-2024 End: 05-16-2024 ambulatory [facility] Facility:[facility] Start: 05-16-2024 End: 05-16-2024 Patient encounter procedure Tyra Munoz MD Work Phone: [facility] Comment on above: Medicare annual well ness visit, subsequent (Primary Dx); Essential hypertension, benign; Elevated glucose; Coronary artery disease involving [place] coronary artery of [place] heart without angina pectoris; Pure hypercholesterolemia; Stage 3 chronic kidney disease, unspecified whether stage 3a or 3b CKD (HCC); Idiopathic gout, unspecified chronicity, unspecified site; Nocturia; Screening for depression; Encounter for screening examination for other mental health and behavioral disorders Start: 05-12-2024 End: 05-12-2024 ambulatory [facility] Facility:[facility] Start: 10-22-2023 Refill Tyra jenkins MD Work Phone: [facility] Comment on above: Refill Request Start: 05-14-2023 End: 05-14-2023 Patient encounter procedure Tyra Munoz MD Work Phone: [facility] Comment on above: Essential hypertensi on, benign (Primary Dx); Stage 3 chronic kidney disease, unspecified whether stage 3a or 3b CKD (HCC); Elevated glucose; Pure hypercholesterolemia; Coronary artery disease involving [place] coronary artery of [place] heart without angina pectoris; Idiopathic gout, unspecified chronicity, unspecified site; Nocturia; Intermittent diarrhea; Malignant neoplasm of urinary bladder, unspecified site (HCC) Start: 12-18-2022 Telephone encounter Tyra daugherty MD Work Phone: [facility] Comment on above: Orders Start: 11-03-2022 End: 11-03-2022 Patient encounter procedure Tyra Munoz MD Work Phone: [facility] Comment on above: Essential hypertensi on, benign (Primary Dx); S/P bilateral hip replacements; Coronary artery disease involving [place] coronary artery of [place] heart without angina pectoris; Pure hypercholesterolemia; Stage 3 chronic kidney disease, unspecified whether stage 3a or 3b CKD (HCC); Idiopathic gout, unspecified chronicity, unspecified site; Osteoarthrosis, unspecified whether generalized or localized, unspecified site Start: 05-20-2018 End: 05-20-2018 Patient encounter KIRILL HERNANDEZ [facility] Start: 09-07-2017 End: 09-08-2017 Ambulatory TYRA MUNOZ Facility:[facility] Start: 03-27-2017 End: 03-28-2017 Ambulatory TYRA MUNOZ Facility:[facility] Procedures Date Procedure Procedure Detail Performing Clinician Start: 02-27-2025 Plain chest X-ray Dr. Leola Munoz MD Work Phone: Start: 02-27-2025 Urnls dip stick/tabl et reagent auto microscopy Dr. Tyra Munoz MD Work Phone: Start: 02-27-[address] Tyra Munoz MD Work Phone: Start: 02-27-[address] diff[address] e detection Dr. Tyra Munoz MD Work Phone: Start: 02-27-[address] Tyra Munoz MD Work Phone: Start: 02-10-[address] Tyra Munoz MD Work Phone: Start: 02-09-[address] Tyra Munoz MD Work Phone: Start: 02-09-[address] Tyra Munoz MD Work Phone: Start: 02-09-2025 CT cervical spine wi thout contrast Dr. Tyra Munoz MD Work Phone: Start: 02-09-2025 CT of head without contrast Dr. Tyra Munoz MD Work Phone: Start: 02-09-2025 Urnls dip stick/tabl et reagent auto microscopy Dr. Tyra Munoz MD Work Phone: Start: 02-09-2025 X-ray of chest, PA a nd lateral views Dr. Tyra Munoz MD Work Phone: Start: 02-03-2025 Follow-up visit Follow Up TYRA MUNOZ Start: 01-09-[address] Tyra Munoz MD Work Phone: Start: 01-08-2025 Serum inorganic phos phate measurement Dr. Tyra Munoz MD Work Phone: Start: 01-07-2025 MRI of brain without contrast Dr. Tyra Munoz MD Work Phone: Start: 01-06-2025 CT of head without contrast Dr. Tyra Munoz MD Work Phone: Start: 01-06-2025 Plain chest X-ray Dr. Leola Munoz MD Work Phone: Start: 12-07-2024 X-ray of chest, PA a nd lateral views Dr. Tyra Munoz MD Work Phone: Start: 12-07-2024 End: 12-07-2024 Ecg routine ecg w/least 12 lds i&r only [facility] Provider Start: 05-16-2024 Adult depression scr eening assessment Tyra uMnoz MD Work Phone: Start: 02-24-2017 End: 02-24-2017 AURELIANO Hernandez MD Work Phone: Start: 02-24-2017 End: 02-24-2017 Follow Up Appt 6 months Jose Luis Hernandez MD Work Phone: Start: 08-29-2016 End: 09-01-2016 Echocardiography Jose Luis Hernandez MD Work Phone: Start: 08-26-2016 End: 08-26-2016 AURELIANO Hernandez MD Work Phone: Start: 08-26-2016 End: 08-26-2016 Electrocardiogram, complete Jose Luis Hernandez MD Work Phone: Start: 08-26-2016 End: 08-26-2016 Follow Up Appt 6 months Jose Luis Hernandez MD Work Phone: Start: 08-21-2015 End: 08-21-2015 Dietary management education, guidance, and counseling Francesca Mulligan RN Start: 08-21-2015 End: 08-21-2015 AURELIANO Hernandez MD Work Phone: Start: 08-21-2015 End: 08-21-2015 Follow Up Appt 1 year Leola Reese Work Phone: Start: 08-21-2014 End: 08-21-2014 AURELIANO Hernandez MD Work Phone: Start: 08-21-2014 End: 08-21-2014 Follow Up Appt 1 year Leola Reese Work Phone: Start: 08-25-2013 End: 08-25-2013 AURELIANO Hernandez MD Work Phone: Start: 08-25-2013 End: 08-25-2013 Follow Up Appt 1 year Leola Reese Work Phone: Start: 08-22-2013 Percutaneous translu solitario coronary angioplasty PERCUTANEOUS TRANSLUMINAL CORONARY ANGIOPLASTY, HX OF Francesca Mulligan RN Start: 08-22-2013 Placement of stent i n coronary artery Status post cardiac stent placement Francesca Mulligan RN Start: 06-13-2010 History of placement of stent for coronary artery disease H/O right coronary artery stent placement Shante MACIEL Comment on above: BMS x 2 Prox-Mid RCA . Carol 7.0 x 12 mm Prox RCA and Carol 6.0 x 18 mm Prox-Mid @ [facility] Plan of Treatment Date Care Activity Detail Author Start: 01-20-2028 Diabetes Screening Diabetes Screening [facility] Start: 11-03-2027 Diabetes Screening Diabetes Screening [facility] Start: 05-12-2027 Diabetes Screening Diabetes Screening [facility] Start: 11-08-2026 Diabetes Screening Diabetes Screening [facility] Start: 05-11-2026 Diabetes Screening Diabetes Screening [facility] Start: 11-02-2025 Hepatitis B surface antibody level LDL Cholesterol [facility] Start: 10-30-2025 DIABETES SCREEN DIABETES SCREEN [facility] Start: 05-17-2025 End: 08-16-2025 CBC panel - Blood by Automated count COMPLETE BLOOD COUNT Lab Routine BENIGN HYPERTENSION Stage 3 chronic kidney disease, unspecified whether stage 3a or 3b CKD (HCC) Expected: 05/17/2025 (Approximate), Expires: 08/16/2025 [facility] Comment on above: Expected: 05/17/2025 (Approximate), Expi res: 08/16/2025 Start: 05-17-2025 End: 08-16-2025 Comprehensive metabolic 2000 panel - Serum or Plasma COMPREHENSIVE METABOLIC PANEL Lab Routine BENIGN HYPERTENSION Pure hypercholesterolemia Coronary artery disease involving [place] coronary artery of [place] heart without angina pectoris Elevated glucose Expected: 05/17/2025 (Approximate), Expires: 08/16/2025 [facility] Work Phone: Comment on above: Expected: 05/17/2025 (Approximate), Expi res: 08/16/2025 Start: 05-17-2025 End: 08-16-2025 Hemoglobin A1c in Blood HEMOGLOBIN A1C Lab Routine Elevated glucose Expected: 05/17/2025 (Approximate), Expires: 08/16/2025 [facility] Comment on above: Expected: 05/17/2025 (Approximate), Expi res: 08/16/2025 Start: 05-17-2025 End: 08-16-2025 Lipid 1996 panel - Serum or Plasma LIPID PANEL, FASTING Lab Routine BENIGN HYPERTENSION Pure hypercholesterolemia Coronary artery disease involving [place] coronary artery of [place] heart without angina pectoris Expected: 05/17/2025 (Approximate), Expires: 08/16/2025 [facility] Comment on above: Expected: 05/17/2025 (Approximate), Expi res: 08/16/2025 Start: 05-17-2025 End: 08-16-2025 Urate [Mass/volume] in Serum or Plasma URIC ACID Lab Routine Idiopathic gout, unspecified chronicity, unspecified site Expected: 05/17/2025 (Approximate), Expires: 08/16/2025 [facility] Comment on above: Expected: 05/17/2025 (Approximate), Expi res: 08/16/2025 Start: 05-16-2025 Anxiety Screening Anxiety Screening [facility] Start: 05-16-2025 Depression Screening Depression Screening [facility] Start: 05-16-2025 End: 05-16-2025 Patient encounter procedure 05/16/2025 2:00 PM EDT Office Visit [facility] [address] [place], [place] [id number] Tyra Munoz MD [address] [place], [place] [id number] 6 mo f/u [facility] Comment on above: 6 mo f/u Start: 05-16-2025 RSV Vaccine (1 - 1-dose 75+ series) RSV Vaccine (1 - 1-dose 75+ series) [facility] Comment on above: Postponed from 10/20/2011 (Insurance Cov erage) Start: 05-12-2025 Hepatitis B surface antibody level LDL Cholesterol [facility] Start: 04-17-2025 Influenza vaccination Influenza Vaccine (#1) [facility] Start: 03-07-2025 End: 03-07-2025 Patient encounter procedure 03/07/2025 2:20 PM EDT Office Visit [facility] [address] [place], [place] [id number] Tyra Munoz MD [address] [place], [place] [id number] 1 month follow up [facility] [place] Comment on above: 1 month follow up Start: 03-07-2025 End: 06-06-2025 CBC panel - Blood by Automated count COMPLETE BLOOD COUNT Lab Routine Essential hypertension, benign Stage 3 chronic kidney disease, unspecified whether stage 3a or 3b CKD (HCC) Expected: 03/07/2025 (Approximate), Expires: 06/06/2025 [facility] Comment on above: Expected: 03/07/2025 (Approximate), Expi res: 06/06/2025 Start: 03-07-2025 End: 06-06-2025 Comprehensive metabolic 2000 panel - Serum or Plasma COMPREHENSIVE METABOLIC PANEL Lab Routine Essential hypertension, benign Stage 3 chronic kidney disease, unspecified whether stage 3a or 3b CKD (HCC) Expected: 03/07/2025 (Approximate), Expires: 06/06/2025 [facility] Work Phone: Comment on above: Expected: 03/07/2025 (Approximate), Expi res: 06/06/2025 Start: 02-27-2025 Hospital admission, emergency, from emergency room, medical nature [facility] Start: 02-27-[address] [facility] Start: 02-27-2025 Computed tomography of abdomen and pelvis with intravenous contrast Abdomen/Pelvis W IV Cont ONLY [facility] Start: 02-27-2025 CT Abdomen and Pelvis W contrast IV [facility] Start: 02-27-[address] [facility] Start: 02-27-2025 C. difficile GDH Antigen & Toxins C. difficile GDH Antigen & Toxins [facility] Start: 02-27-2025 Enteric Bacteriology Enteric Bacteriology [facility] Start: 02-27-2025 Ova and Parasites Ova and Parasites [facility] Start: 02-24-2025 End: 02-24-2025 Patient encounter procedure 02/24/2025 2:20 PM EDT Office Visit [facility] [address] [place] [address] Tyra Munoz MD [address] [place] [address] 02/13/2025 [facility] follow up low B/P and UTI [facility] Comment on above: 02/13/2025 [facility] follow up low B/P and UTI Start: 02-14-2025 Evaluation of diagnostic study results [facility] Start: 02-13-[address] [facility] Start: 02-10-2025 Care planning and problem solving actions [facility] Start: 02-10-2025 Following clinical pathway protocol [facility] Start: 02-09-2025 Following clinical pathway protocol [facility] Start: 02-09-2025 Assessment of risk of venous thromboembolism [facility] Start: 02-09-2025 Catheterization of vein [facility] Start: 02-09-2025 Elevation of head of bed [facility] Start: 02-09-[address] [facility] Start: 02-09-2025 Insertion of catheter into peripheral vein [facility] Start: 02-09-2025 Measuring intake and output [facility] Start: 02-09-2025 Providing care according to standard [facility] Start: 02-09-2025 Referral to occupational therapist [facility] Start: 02-09-[address] [facility] Start: 02-09-2025 Vital signs measurements [facility] Start: 02-09-2025 [facility] Start: 02-09-[address] [facility] Start: 02-09-[address] [facility] Start: 02-09-2025 Hospital admission, emergency, from emergency room, medical nature [facility] Start: 02-09-2025 Bacteria identified in Blood by Culture Blood Culture [facility] Start: 02-09-2025 Bacteria identified in Urine by Culture Urine Culture [facility] Start: 02-09-2025 Blood culture Blood Culture [facility] Start: 02-09-2025 [facility] Start: 02-09-2025 End: 02-09-2025 [facility] Start: 02-03-2025 End: 02-03-2025 Patient encounter procedure 02/03/2025 2:20 PM EDT Office Visit [facility] [place] [address] [place], [place] [id number] Tyra Munoz MD [address] [place], [place] [phone] 2-3 week f/u [facility] Comment on above: 2-3 week f/u Start: 02-02-2025 End: 05-04-2025 CBC panel - Blood by Automated count COMPLETE BLOOD COUNT Lab Routine Essential hypertension, benign Stage 3 chronic kidney disease, unspecified whether stage 3a or 3b CKD (HCC) Acute congestive heart failure, unspecified heart failure type (HCC) Expected: 02/02/2025 (Approximate), Expires: 05/04/2025 [facility] Comment on above: Expected: 02/02/2025 (Approximate), Expi res: 05/04/2025 Start: 02-02-2025 End: 05-04-2025 Comprehensive metabolic 2000 panel - Serum or Plasma COMPREHENSIVE METABOLIC PANEL Lab Routine Essential hypertension, benign Stage 3 chronic kidney disease, unspecified whether stage 3a or 3b CKD (HCC) Acute congestive heart failure, unspecified heart failure type (HCC) Expected: 02/02/2025 (Approximate), Expires: 05/04/2025 [facility] Work Phone: Comment on above: Expected: 02/02/2025 (Approximate), Expi res: 05/04/2025 Start: 01-19-2025 End: 04-20-2025 Comprehensive metabolic 2000 panel - Serum or Plasma [facility] Work Phone: Comment on above: Expected: 01/19/2025 (Approximate), Expi res: 04/20/2025 Start: 01-19-2025 End: 01-19-2025 Patient encounter procedure 01/19/2025 11:20 AM EDT Office Visit [facility] [place] [address] [place], [place] [id number] Tyra Munoz MD [address] [place], [place] [phone] Follow up edema, CHF - review Cardiac notes [facility] Comment on above: Follow up edema, CHF - review Cardiac no mg Start: 01-09-[address] [facility] Start: 01-06-2025 Following clinical pathway protocol [facility] Start: 01-06-2025 [address] of [address] bandage [facility] Start: 01-06-2025 Assessment of risk of venous thromboembolism [facility] Start: 01-06-2025 Elevation of affected extremity [facility] Start: 01-06-[address] [facility] Start: 01-06-2025 Insertion of catheter into peripheral vein [facility] Start: 01-06-2025 Measuring intake and output [facility] Start: 01-06-[address] [facility] Start: 01-06-[address] [facility] Start: 01-06-[address] [facility] Start: 01-06-2025 Providing care according to standard [facility] Start: 01-06-2025 Provision of activity privileges [facility] Start: 01-06-2025 Referral to occupational therapist [facility] Start: 01-06-[address] [facility] Start: 01-06-2025 [facility] Start: 01-06-[address] [facility] Start: 01-06-[address] [facility] Start: 01-06-2025 [facility] Start: 12-27-2024 End: 12-27-2024 Patient encounter procedure 12/27/2024 10:00 AM EDT Office Visit [facility] [address] [facility] [place] [address] Tyra Munoz MD [address] [facility] [place] [address] [facility] ER f/u 12/07 leg swelling [facility] Comment on above: [facility] ER f/u 12/07 leg swelling Start: 12-12-2024 Covid-19 Vaccine () Covid-19 Vaccine () [facility] Start: 12-07-2024 [facility] Start: 12-07-2024 [facility] Start: 11-29-2024 End: 11-29-2024 ambulatory 11/29/2024 10:00 AM EDT OT/PT/Speech Visit [facility] [address] [place] [address] Steffen Jaquez, PT [address] [place] [address] Physical deconditioning [R53.81]; Gait abnormality [R26.9] [facility] Comment on above: Physical deconditioning [R53.81]; Gait a bnormality [R26.9] Start: 11-14-2024 End: 11-14-2024 Patient encounter procedure 11/14/2024 1:40 PM EDT Office Visit [facility] [address] [place] [place] [address] Tyra Munoz MD [address] [facility] [place] [address] 6 mo f/u [facility] Comment on above: 6 mo f/u Start: 11-13-2024 End: 02-12-2025 CBC W Auto Differential panel - Blood COMPLETE BLOOD COUNT AND DIFFERENTIAL Lab Routine Essential hypertension, benign Expected: 11/13/2024 (Approximate), Expires: 02/12/2025 [facility] Comment on above: Expected: 11/13/2024 (Approximate), Expi res: 02/12/2025 Start: 11-13-2024 End: 02-12-2025 Comprehensive metabolic 2000 panel - Serum or Plasma COMPREHENSIVE METABOLIC PANEL Lab Routine Essential hypertension, benign Elevated glucose Pure hypercholesterolemia Stage 3 chronic kidney disease, unspecified whether stage 3a or 3b CKD (HCC) Expected: 11/13/2024 (Approximate), Expires: 02/12/2025 [facility] Work Phone: Comment on above: Expected: 11/13/2024 (Approximate), Expi res: 02/12/2025 Start: 11-13-2024 End: 02-12-2025 Lipid 1996 panel - Serum or Plasma LIPID PANEL BASIC Lab Routine Essential hypertension, benign Elevated glucose Coronary artery disease involving [place] coronary artery of [place] heart without angina pectoris Pure hypercholesterolemia Expected: 11/13/2024 (Approximate), Expires: 02/12/2025 [facility] Comment on above: Expected: 11/13/2024 (Approximate), Expi res: 02/12/2025 Start: 11-13-2024 End: 02-12-2025 Urate [Mass/volume] in Serum or Plasma URIC ACID Lab Routine Idiopathic gout, unspecified chronicity, unspecified site Expected: 11/13/2024 (Approximate), Expires: 02/12/2025 [facility] Comment on above: Expected: 11/13/2024 (Approximate), Expi res: 02/12/2025 Start: 11-08-2024 Hepatitis B surface antibody level LDL Cholesterol [facility] Start: 08-17-2024 Advance Directive Discussion Advance Directive Discussion [facility] Start: 08-17-2024 Medicare Advantage Annual Wellness Visit Medicare Advantage Annual Wellness Visit [facility] Start: 05-11-2024 Hepatitis B surface antibody level LDL Cholesterol [facility] Start: 04-17-2024 Covid-19 Vaccine ( season) Covid-19 Vaccine ( season) [facility] Start: 04-17-2024 Influenza vaccination Influenza Vaccine (#1) [facility] Start: 11-12-2023 End: 01-12-2024 CBC W Auto Differential panel - Blood CBC + DIFF Lab Routine Essential hypertension, benign Expected: 11/12/2023 (Approximate), Expires: 01/12/2024 [facility] Work Phone: Comment on above: Expected: 11/12/2023 (Approximate), Expi res: 01/12/2024 Start: 11-12-2023 End: 01-12-2024 Comprehensive metabolic 2000 panel - Serum or Plasma COMP METABOLIC PANEL Lab Routine Essential hypertension, benign Pure hypercholesterolemia Stage 3 chronic kidney disease, unspecified whether stage 3a or 3b CKD (HCC) Elevated glucose Expected: 11/12/2023 (Approximate), Expires: 01/12/2024 [facility] Work Phone: Comment on above: Expected: 11/12/2023 (Approximate), Expi res: 01/12/2024 Start: 11-12-2023 End: 01-12-2024 Lipid 1996 panel - Serum or Plasma LIPID PANEL BASIC Lab Routine Essential hypertension, benign Pure hypercholesterolemia Elevated glucose Expected: 11/12/2023 (Approximate), Expires: 01/12/2024 [facility] Work Phone: Comment on above: Expected: 11/12/2023 (Approximate), Expi res: 01/12/2024 Start: 11-12-2023 End: 01-12-2024 Urate [Mass/volume] in Serum or Plasma URIC ACID BLOOD Lab Routine Idiopathic gout, unspecified chronicity, unspecified site Expected: 11/12/2023 (Approximate), Expires: 01/12/2024 [facility] Work Phone: Comment on above: Expected: 11/12/2023 (Approximate), Expi res: 01/12/2024 Start: 10-31-2023 Hepatitis B surface antibody level LDL CHOLESTEROL [facility] Start: 08-17-2023 Behavioral Health Screening Behavioral Health Screening [facility] Start: 05-06-2023 End: 07-06-2023 Comprehensive metabolic 2000 panel - Serum or Plasma COMP METABOLIC PANEL Lab Routine Coronary artery disease involving [place] coronary artery of [place] heart without angina pectoris Pure hypercholesterolemia Stage 3 chronic kidney disease, unspecified whether stage 3a or 3b CKD (HCC) Expected: 05/06/2023 (Approximate), Expires: 07/06/2023 [facility] Work Phone: Comment on above: Expected: 05/06/2023 (Approximate), Expi res: 07/06/2023 Start: 05-06-2023 End: 07-06-2023 Lipid 1996 panel - Serum or Plasma LIPID PANEL BASIC Lab Routine Coronary artery disease involving [place] coronary artery of [place] heart without angina pectoris Pure hypercholesterolemia Expected: 05/06/2023 (Approximate), Expires: 07/06/2023 [facility] Work Phone: Comment on above: Expected: 05/06/2023 (Approximate), Expi res: 07/06/2023 Start: 05-06-2023 End: 07-06-2023 Urate [Mass/volume] in Serum or Plasma URIC ACID BLOOD Lab Routine Idiopathic gout, unspecified chronicity, unspecified site Expected: 05/06/2023 (Approximate), Expires: 07/06/2023 [facility] Work Phone: Comment on above: Expected: 05/06/2023 (Approximate), Expi res: 07/06/2023 Start: 04-17-2023 Influenza vaccination Influenza Vaccine (#1) [facility] Start: 10-05-2022 Covid-19 Vaccine (6 - Pfizer series) Covid-19 Vaccine (6 - Pfizer series) [facility] Start: 08-17-2022 ADVANCE DIRECTIVE DISCUSSION ADVANCE DIRECTIVE DISCUSSION [facility] Start: 09-02-2021 Urine microalbumin profile [facility] Start: 09-14-2017 End: 09-14-2017 Appointment Appointment [facility] Work Phone: Start: 02-24-2017 End: 02-24-2017 Appointment Appointment [facility] Work Phone: Start: 02-24-2017 End: 02-24-2017 AURELIANO BEDOYA [place] [facility] Work Phone: Start: 02-24-2017 End: 02-24-2017 Follow Up Appt 6 months Follow Up Appt 6 months [facility] Work Phone: Start: 08-26-2016 End: 08-26-2016 AURELIANO BEDOYA [place] [facility] Work Phone: Start: 08-26-2016 End: 08-26-2016 Echocardiography Echocardiogram (complete) [facility] Work Phone: Start: 08-26-2016 End: 08-26-2016 Electrocardiogram, complete EKG (In office) [place] [facility] Work Phone: Start: 08-26-2016 End: 08-26-2016 Follow Up Appt 6 months Follow Up Appt 6 months [facility] Work Phone: Start: 08-21-2015 End: 08-21-2015 AURELIANO BEDOYA [place] [facility] Work Phone: Start: 08-21-2015 End: 08-21-2015 Follow Up Appt 1 year Follow Up Appt 1 year [place] [facility] Work Phone: Start: 08-21-2014 End: 08-21-2014 DJN AURELIANO [facility] Work Phone: Start: 08-21-2014 End: 08-21-2014 Follow Up Appt 1 year Follow Up Appt 1 year [place] [facility] Work Phone: Start: 08-25-2013 End: 08-25-2013 AURELIANO BEDOYA [place] [facility] Work Phone: Start: 08-25-2013 End: 08-25-2013 Follow Up Appt 1 year Follow Up Appt 1 year [facility] Work Phone: Start: 10-20-2011 RSV Vaccine (1 - 1-dose 75+ series) RSV Vaccine (1 - 1-dose 75+ series) [facility] Start: 1996 RSV Vaccine (1 - 1-dose 60+ series) RSV Vaccine (1 - 1-dose 60+ series) [facility] Start: 1986 SHINGRIX VACCINE (1 of 2) SHINGRIX VACCINE (1 of 2) [facility] Basic metabolic 2008 panel with ionized calcium - Serum or Plasma [facility] Clostridioides diffi cile [Presence] in Stool [facility] ECG COMPLETE [facility] Work Phone: Comment on above: Ordered: 12/07/2024 Lactic acid measurement [facility] Magnesium measurement [facility] Nucleic acid assay [facility] Ova OR parasites identification [facility] Patient Education AFib Dc Heart Failure [facility] Work Phone: Patient referral [facility] Work Phone: Troponin T.cardiac [Mass/volume] in Serum or Plasma by High sensitivity method [facility] Urine culture [facility] Immunizations Immunization Date Immunization Notes Care Provider [facility] 06-13-2024 influenza virus vacc ine, unspecified formulation Tyra Munoz MD Work Phone: [facility] 06-02-2023 influenza virus vacc ine, unspecified formulation Tyra Munzo MD Work Phone: [facility] 04-22-2023 zoster vaccine recombinant Tyra Munoz MD Work Phone: [facility] 12-19-2022 zoster vaccine recombinant Tyra Munoz MD Work Phone: [facility] 12-18-2022 zoster RZV vaccine, PF, (SHINGRIX, PF,) 50 mcg/0.5 mL injection Tyra Munoz MD Work Phone: [facility] Work Phone: Comment on above: Inject 0.5 mL intram uscularly one time only for 1 dose. Repeat 2nd dose in 2-6 months. 06-04-2022 influenza virus vacc ine, unspecified formulation Tyra Munoz MD Work Phone: [facility] 05-24-2021 influenza, high dose seasonal, preservative-free Tyra Munoz MD Work Phone: [facility] 06-06-2020 influenza (HD-IIV4) vaccine, age 65+ yr, high dose, quadrivalent, PF (FLUZONE HIGH-DOSE) Tyra Munoz MD Work Phone: [facility] 06-06-2019 influenza, high dose seasonal, preservative-free Tyra Munoz MD Work Phone: [facility] 07-14-2018 influenza, high dose seasonal, preservative-free Tyra Munoz MD Work Phone: [facility] 06-18-2018 influenza, high dose seasonal, preservative-free Tyra Munoz MD Work Phone: [facility] 06-29-2017 influenza, seasonal, injectable Tyra Munoz MD Work Phone: [facility] 05-18-2016 influenza, high dose seasonal, preservative-free Tyra Munoz MD Work Phone: [facility] 06-08-2015 influenza, seasonal, injectable Tyra Munoz MD Work Phone: [facility] 04-02-2015 pneumococcal conjuga te vaccine, 13 valent Tyra Munoz MD Work Phone: [facility] 05-09-2014 influenza, seasonal, injectable Tyra Munoz MD Work Phone: [facility] 03-30-2014 pneumococcal polysaccharide vaccine, 23 valent Tyra Munoz MD Work Phone: [facility] Work Phone: 09-02-2011 tetanus toxoid, redu shanakr diphtheria toxoid, and acellular pertussis vaccine, adsorbed Tyra Munoz MD Work Phone: [facility] Work Phone: 05-28-2010 influenza virus vacc ine, whole virus Tyra Munoz MD Work Phone: [facility] 06-08-2009 influenza virus vacc ine, whole virus Tyra Munoz MD Work Phone: [facility] 05-01-2000 pneumococcal polysaccharide vaccine, 23 valent Tyra Munoz MD Work Phone: [facility] Work Phone: 05-01-2000 tetanus and diphther ia toxoids, adsorbed, preservative free, for adult use (2 Lf of tetanus toxoid and 2 Lf of diphtheria toxoid) Tyra Munoz MD Work Phone: [facility] Work Phone: Payers Date Payer Category Payer Medicare UHC AAR MEDICAR E UHC AARP MEDICARE HMO [id number] 2021-[facility] [phone] [address] [address] [place] [address] HMO [id number] 2021 Medicare (Managed Care) [id number] 2021 Self-pay [id number] 2017 Self-pay 2015 Medicare [id number] Unknown [id number] Unknown [id number] Unknown [id number] Unknown [id number] Unknown [id number] Unknown [id number] Unknown [id number] .[id number] Unknown [id number] .[id number] Unknown [id number] Unknown [id number] Unknown [id number] Unknown [id number] Unknown [id number] Unknown [id number] Unknown [id number] Unknown [id number] Social History Date Type Detail Facility Start: 11-03-2022 End: 02-27-2025 Tobacco smoking status NHIS Never smoked tobacco [facility] Start: 11-03-2022 Tobacco use and exposure Smoke less tobacco non-user [facility] Start: 11-03-2022 End: 02-24-2025 Alcohol intake Current non-drinker of alcohol (finding) [facility] Start: 11-02-2022 History SDOH Alcohol Frequency 1 [facility] Start: 11-02-2022 History SDOH Alcohol Std Drinks 0 [facility] Start: 10-10-2019 End: 11-02-2022 History SDOH Social Connections Phone 5 [facility] Start: 11-02-2022 History SDOH Social Connections Jew 3 [facility] Start: 11-02-2022 History SDOH Transport Med 2 [facility] Start: 10-10-2019 Education 12 [facility] Start: 1935 Sex Assigned At Not on file [facility] Start: 11-02-2022 End: 05-14-2023 History of Social function [facility] Start: 11-02-2022 End: 05-14-2023 Social connection and isolation panel [facility] Do you belong to any clubs or organizations such as jainism groups, unions, fraternal or athletic groups, or school groups? Yes [facility] Are you now , , , , never or living with a partner? [facility] How often to you hav e a drink containing alcohol? Never [facility] How many standard dr inks containing alcohol do you have on a typical day? Patient does not drink [facility] Do you feel stress - tense, restless, nervous, or anxious, or unable to sleep at night because your mind is troubled all the time - these days [OSQ] Not at all [facility] (I/We) worried wheth er (my/our) food would run out before (I/we) got money to buy more. Never true [facility] In the past 12 month s, was there a time when you were not able to pay the mortgage or rent on time? No [facility] Start: 1935 Sex Assigned At Male [facility] Goals Date Patient Goal Desired Activity /State Functional Status Date Assessment Result Facility 02-13-2025 Functional status Ambulates;[facility]air [facility] Work Phone: 01-09-2025 Functional status Ambulates [facility] Work Phone: 10-03-2014 Are you deaf, or do you have serious difficulty hearing No 10/03/2014 1:10 PM Marilin Perkins MA No [facility] 10-03-2014 Are you blind, or do you have serious difficulty seeing, even when wearing glasses No 10/03/2014 1:10 PM Marilin Perkins MA No [facility] 10-03-2014 Do you have serious difficulty walking or climbing stairs No 10/03/2014 1:10 PM Marilin Perkins MA No [facility] 10-03-2014 Do you have difficul ty dressing or bathing No 10/03/2014 1:10 PM Marilin Perkins MA No [facility] 10-03-2014 Because of a physica l, mental, or emotional condition, do you have difficulty doing errands alone such as visiting a physician's office or shopping No 10/03/2014 1:10 PM Marilin Perkins MA No [facility] Mental Status Date Assessment Result Facility 02-27-2025 Cognitive function Level Of Cons ciousness Awake;Alert;Appropriate;Fol lows Commands [facility] Work Phone: 02-13-2025 Cognitive function Voice/Name [facility] Work Phone: 01-09-2025 Cognitive function Voice/Name [facility] Work Phone: 12-07-2024 Cognitive function Level Of Cons ciousness Awake;Alert;Appropriate;Fol lows Commands [facility] Work Phone: 10-03-2014 Because of a physica l, mental, or emotional condition, do you have serious difficulty concentrating, remembering, or making decisions No 10/03/2014 1:10 PM Marilin Perkins MA No [facility] Clinical Notes 11-19-2006 to 02-27-2025 Note Date & Type Note Facility 02-27-[address] [facility] 02-27-2025 Radiology Diagnostic study note [facility] Imaging Services [address], [place] [id number] Chest 1 View (Portable) MR#: [id number] Acct: [id number] Name: VALDO GOMEZ Rep #: [id number] : 1935 89 From: Bobby Appiah MD PCP: Dr. Tyra Munoz MD Status: [facility] Study:Chest 1 View (Portable) Date of Exam: 02/27/25 Exam# [id number] Ordering Dr: Blair Orourke MD PROCEDURE: CHEST 1 VIEW (PORTABLE) 02/27/2025 REASON FOR EXAM: CHF, SHORTNESS OF BREATH TECHNIQUE: Frontal view of the chest. COMPARISON: 02/09/2025 FINDINGS: Lungs/Pleura: Shallow inspiration, with associated bronchovascular crowding and bibasilar streaky subsegmental atelectasis. Mild interstitial reticular opacities may represent interstitial edema. No large pleural effusion. No pneumothorax. Vascular congestion. Heart/Mediastinum: Prominent cardiac silhouette likely exaggerated by technique. Bones/Soft tissues: Multilevel degenerative changes of the spine and advanced bilateral shoulder arthrosis. RAD/Chest 1 View (Portable) IMPRESSION: Shallow inspiration with associated bibasilar atelectasis. Probable mild cardiomegaly, vascular congestion and interstitial edema. No large pleural effusions. Reading Location: [id number] CC: Dr. Blair Orourke MD; Dr. Tyra Munoz MD ~ [employer] Room Attendant: Signed [facility] 02-27-2025 Discharge summary Note Date/Time February 27, 2025 6:32pm [facility] Medical Records Department [address] [place] [address] Emergency Department Summary 02/27/25 MR#: [id number] Acct: [id number] Name: VALDO GOMEZ Rep #:[id number] : 1935 89 From: Blair Orourke MD PCP: Dr. Tyra Munoz MD Status:AD M IN Location: [place] [address] HPI History of Present Illness Chief Complaint: Weakness Narrative Narrative: 89-year-old male presents via EMS with generalized weakness for the last 2 days and diarrhea for the last week. He denies any recent antibiotics. He states hehas past medical history of CHF and wears oxygen sometimes. His daughter called EMS today because he has been weak for the last 2 days and he states he was unable to get up off the stool. He denies any fevers or chills, no nausea or vomiting but states he has had loose stools a few times a day and diarrhea for the last week. It is nonbloody. He denies any abdominal pain. No chest pain, no exacerbating or alleviating factors. [facility] Medical History UTI (urinary tract infection) Heart failure with preserved ejection fraction Kidney disease Non-smoker On home oxygen therapy Coronary artery disease Myocardial infarct DVT (deep venous thrombosis) Gout Atherosclerosis of coronary artery of [place] heart without angina pectoris Hypertension Hyperlipidemia Old inferior wall myocardial infarction Home Medications ?Medication ?Instructions ?Recorded ?Last Taken ?Type allopurinol 300 mg tablet 300 mg PO DAILY 09/13/17 History amoxicillin 500 mg tablet 2,000 mg PO DAILY PRN DENTIS T 09/13/17 Unknown History bimatoprost 0.01 % eye drops 1 drp ophthalmic (eye) QH S 09/13/17 12/07/24 History (Clau) carvedilol 3.125 mg tablet (Coreg) 3.125 mg PO BID 02/09/25 History dqvnoamn-ip-qfuaj 300 mcg-K 60 1 tab PO DAILY 09/13/17 02/09/25 History mcg-lycop 600 mcg-lutein 300 mcg tablet (Centrum Silver Men) nitroglycerin 0.4 mg sublingual 0.4 mg sublingual Q5-1 5M PRN chest 09/13/17 Unknown History tablet pain brinzolamide 1 %-brimonidine 0.2 % 1 drp ophthalmic (e ye) BID 02/10/19 Unknown History eye drops,suspension (Simbrinza) apixaban 2.5 mg tablet (Eliquis) 2.5 mg PO BID #60 tab s 12/07/24 02/09/25 Rx lutein 10 mg tablet 10 mg PO DAILY 12/07/2401/16 History furosemide 40 mg tablet (Lasix) 40 mg PO DAILY #1 TAB 02/13/25 02/27/25 Rx Lactobacillus acidophilus 10 10,000 mmu cells PO DAILY 02/27/25 Unknown History billion cell capsule (Probacap) potassium chloride 20 mEq 20 meq PO BID 02/27/25 Unkno wn History tablet,extended release(part/cryst) pravastatin 20 mg tablet 20 mg PO DAILY 02/27/25 Unkn own History Allergy/AdvReac Type Severity Reaction Status Date / Time SHARON Inhibitors AdvReac Hypotensive Verified 02/15/25 15:15 Family History Mother , AGe 71 Congestive heart failure Sister , Age 66 CAD (coronary artery disease) Breast cancer S/P CABG (coronary artery bypass graft) Surgical History History of coronary artery stent placement H/O bilateral inguinal hernia repair H/O bilateral hip replacements H/O right coronary artery stent placement (06/13/10) Social History household members: spouse housing: house current occupational status: retired Smoking Status: Never smoker ROS ROS ED ROS Narrative Review of systems positive for watery stool/diarrhea x 1 week. Positive generalized weakness for 2 days. No fevers or chills, no nausea or vomiting, noabdominal pain, no chest pain. No cough or shortness of breath. EXAM Physical Exam Narrative Exam Narrative: Afebrile. Vital signs noted. Nontoxic-appearing. Cardiovascular examination reveals an irregularly irregular rhythm that is rate controlled at 93 bpm. Lungs are clear to auscultation bilaterally. Abdomen is soft and nontender without guarding or rebound. Positive bowel sounds. Neurological examination shows him to be awake, alert, oriented, interactive and answering questions appropriately. Const Vital Signs: 02/27/25 14:45 02/27/25 15:21 02/27/25 15:25 Temperature 98.4 F Temperature Source Oral Pulse Rate 93 Respiratory Rate 27 H Respiratory Effort Labored Respiratory Depth Normal Respiratory Pattern Normal Normal Blood Pressure 102/65 Blood Pressure Mean 77 Pulse Ox 94 Oxygen Delivery Method Nasal Cannula Room Air Oxygen Flow Rate (L/min) 4 02/27/25 15:44 02/27/25 16:00 02/27/25 17:00 Temperature Temperature Source Pulse Rate 89 102 H 97 Respiratory Rate 28 H 26 H 23 H Respiratory Effort Respiratory Depth Respiratory Pattern Blood Pressure 98/71 98/71 101/75 Blood Pressure Mean 80 80 83 Pulse Ox Oxygen Delivery Method Nasal Cannula Nasal Cannula Nasal Cannula Oxygen Flow Rate (L/min) 4 4 4 02/27/25 17:25 Temperature Temperature Source Pulse Rate 94 Respiratory Rate 16 Respiratory Effort Respiratory Depth Respiratory Pattern Blood Pressure 92/71 Blood Pressure Mean 78 Pulse Ox 95 Oxygen Delivery Method Nasal Cannula Oxygen Flow Rate (L/min) 4 MDM MDM MDM Narrative Medical decision making narrative: Differential diagnosis includes but not limited to dehydration versus electrolyte imbalance. Regarding his diarrhea if he produces a stool sample, will be sent for studies. As he has had diarrhea for a week, concern would be for colitis versus diverticulitis but history and physical does not support thisas he has a nontender abdomen. However, I do feel that given his age the concern would be for a colitis for his diarrhea and he may have an electrolyte imbalance especially hypokalemia causing his generalized weakness. Infectious cause will be considered as well and a chest x-ray obtained to rule out pneumonia as well as urinalysis. EKG was obtained and interpreted by myself independently as atrial fibrillation at 92 bpm without other ectopy or acute ST changes. No STEMI. I reviewed his laboratory work and he has slight elevation of his white count of11.8 which I think is nonspecific, hemoglobin normal at 13.2 with hematocrit 39.3, platelet count normal at 160. Electrolyte panel shows CO2 low at 19.7 with BUN of 33 and creatinine 1.1, LFTs show alk phos elevated to 43 which I think is nonspecific. BNP is elevated 15,160, when compared to prior labs, muchhigher than baseline. Urinalysis is negative for infection and ketones. He wasable to give a stool sample with C. difficile, ova and parasites and other stoolstudies pending. I did review his outpatient record and he had an echocardiogram performed that showed an ejection fraction of 40% but global hypokinesis of the left ventricle. He does have a tenuous blood pressure/soft at 98/71 currently so I am hesitant to give him more diuretic. I discussed patient with Dr. Mckeon for admission to the PCU. I also discussed patient with cardiology, Dr. Wong. It was felt that he may be more dehydratedas in review of his prior admission, he diuresed at least 30 pounds. It was felt by cardiology that he could be given small aliquots of IV fluid, 500 mL at a time. If the patient experiences pulmonary edema or oxygen desaturation, IV fluids would be stopped and he would be diuresed. Disposition is admit in stable condition. Of note, per RN, he is triggering sepsis because of an elevated bilirubin. However I do not feel that he is septic as he does not have a fever, no elevatedwhite count above 12, and once again his low systolic blood pressure may be secondary to intravascular volume depletion and dehydration. History & Record Review Discussion w/independent historian: Patient and Family Additional record(s) reviewed:: Prior inpatient record (Echo with a EF of 40%), Prior ED visit and Prior labs Lab Data Attestation: I reviewed the patient's lab results. Labs: Laboratory Results - last 24 hr 02/27/25 02/27/25 02/27/25 15:14 16:06 16:10 WBC 11.8 H RBC 3.57 L Hgb 13.2 Hct 39.3 L MCV 110.1 H MCH 37.0 H MCHC 33.6 RDW Std Deviation 66.2 H RDW Coeff of Yan[place] 16.1 H Plt Count 160 MPV 11.2 Immature Gran % (Auto) 0.600 Neut % (Auto) 76.6 H Lymph % (Auto) 6.5 L Floyd % (Auto) 15.2 H Eos % (Auto) 0.2 Baso % (Auto) 0.9 Absolute Neuts (auto) 9.1 H Absolute Lymphs (auto) 0.77 L Nucleated RBC % 0 Sodium 136 Potassium 3.7 Chloride 103 Carbon Dioxide 19.7 L Anion Gap 13 BUN 33 H Creatinine 1.10 Estim Creat Clear Calc 50.95 Est GFR (MDRD) Non-Af 65 BUN/Creatinine Ratio 30.0 H Glucose 98 Calcium 8.2 Total Bilirubin 2.04 H AST 27 ALT 22 Alkaline Phosphatase 243 [place] [address] H Total Protein 5.5 L Albumin 2.4 L Globulin 3.2 Albumin/Globulin Ratio 0.7 L Urine Color Yellow Urine Clarity Clear Urine pH 6.0 Ur Specific [place] 1.015 Urine Protein 15 H Urine Glucose (UA) Normal Urine Ketones Negative Urine Occult Blood 10 H Urine Nitrite Negative Urine Bilirubin Negative Urine Urobilinogen Normal Ur Leukocyte Esterase 100 H Urine RBC 0-5 SEEN Urine WBC 5-10 SEEN Ur Squamous Epith Cells 0-5 SEEN Urine Bacteria 1+ Hyaline Casts 0-5 SEEN Urine Mucus 1+ Radiography Diagnostic Testing: Clinical Impression(s) from Imaging Studies Chest X-Ray 02/27/25 16:45 IMPRESSION: Shallow inspiration with associated bibasilar atelectasis. Probable mild cardiomegaly, vascular congestion and interstitial edema. No large pleural effusions. Reading Location: [id number] Management Discussion w/another healthcare provider: Hospitalist, Parts Counter Representative and receiving worker/Case management Discharge Plan Dx/Rx/DC Orders Clinical Impression: Diarrhea, CHF (congestive heart failure), Malnutrition, Generalized weakness Disposition Disposition: Acute Care Hospital [facility] What to do if you have Problems For any increased pain, shortness of breath, bleeding, nausea or vomiting, chestpain, or any unexpected problems, contact your Primary Care Provider. Call [facility] ([phone]) or report to the closest Emergency Room. Call 911 if necessary. 02/27/25 [id number] <Electronically signed by Blair Orourke MD> Cosigner Signature (if applicable): CC: Dr. Tyra Munoz MD ~ Signed [facility] Work Phone: [phone] 239-435907-11-2025 History of Present illness Narrative* Tyra Munoz MD - 02/24/2025 2:20 PM EDT Chief Complaint Patient presents with: Hospital F/U: [facility] HPI Valdo Gomez is a 89 year old male who presents here today for Hospital Discharge Follow up. Not TCM. Pt was taken to [facility] ER via squad due to weakness and fall due to weakness on 02/09/25. He was admitted to [facility] and d/c home on 02/13/25 with diagnosis of UTI. He was treated with Cipro 500 mg 1 pill BID, Pyridium 100 mg 1 pill TID, Lasix was changed from 40 mg BID to once daily and Potassium chloride 20 mEq was changed from 1 pill BID to once daily. Pt was seen by [facility] 02/15/25. There is concern about pt lack of appetite and desire to eat anything. Daughter called in this week asking what she could feed pt and if any of his medications would be causing decreased appetite. Pt daughter was advised to add calorie dense shakes such as Ensure or Newton breakfast shakes to help with w eight gain and that none of the medications he was taking would suppress his appetite. Pt daughter stated she was able to get pt to eat some clam chowder from [employer] and ice cream. Stated that she wasn't going to give him the shakes if he was able to eat other food. Has been weighing himself daily with weight running around 166-170 lbs. He is weak and has little interest in things he normally enjoys. His Brick Tosser recommended only using O2 when he needs it, used it half hour ago. PulseOx 90%. He has been having diarrhea a lot. He has ate a few bites of custard, jello, half cup of cherries. Cardio recommended at visit on 02/15/25 to stop the niacin and pravastatin. Chief Complaint: Complaint Narrative Narrative: Patient is a 81-year-old male with past medical history of hypertension, hyperlipidemia, chronic kidney disease, atrial fibrillation on Eliquis, heart failure who presented to the emergency department with chief complaint of generalized weakness inability to get up out of bed this morning he felt ex tremely weak he said. He gets yesterday around 4 PM he states that he had a fall because he felt soweak he notes that he fell backwards but denies hitting his head denies passing out losing consciousness. He states that he is complaining of painful urination. Per EMS the house was very hot as theydo not have central air in the home but daughter at bedside states that there is another house that he could have gone to that has central air however he was refusing he states that this was his whether and he did not believe he needed air conditioning. Medical decision making narrative: Patient is a 89-year-old male who presented to the emergency department the chief complaint of generalized weakness and painful urination. On the differential diagnosis includes but limited to UTI, electrolyte abnormality, dehydration, ACS. Once workup is obtained and reviewed he will be reevaluated. Patient will be given a liter of IV fluids as he does have a history of heart failure. Patient CBC reviewed showed no evidence leukocytosis white blood count normal at 10.3, hemoglobin 12.4, patient does have macrocytic anemia with MCV of 109.9. Patient INR was 2.1 with a PT of 23.7. Patient sodium is 137, potassium normal at 4.4, creatinine was at his baseline at 1.32 does have underlying chronic kidney disease. Patient's AST and ALT are 39 and 19 respectively. Patient's troponin was 59 and 53 respectively. Patient's EKG reviewed showed atrial fibrillation with a rate of 81 beats per minutes. Patient's urinalysis reviewed showed 5 leukocyte esterase greater than 100 white cells 2+ bacteria this was sent for culture. Patient was ordered a gram of Rocephin at 1218. Patient's CT head and brain without contrast showed no acute findings chronic changes noted. Patient CT cervical spine reviewed showed degenerative changes cervical spine no acute fracture listhesis. There is sclerosis of C3 C5 vertebrae metastatic deposit should be ruled out. Patient's chest x-ray reviewed bymyself by radiology showed a small left pleural effusion with basilar infiltration and/or atelectasis. At this point in time we will discuss case with hospitalist for generalized weakness, UTI. Patient will be given another liter of IV fluids. Discussed case with hospitalist Dr. Luciano who accept the patient for admission. Notified patient and family members at bedside all question concerns answered. They were agreeable with this plan Discharge Diagnosis (1) UTI (urinary tract infection): Status: Acute Code(s): N39.0 - Urinary tract infection, site not specified Plan 1. Acute cystitis-again urine culture grew out E. coli-sensitive to Cipro, patient is now on Cipro #2 Dehydration on a backdrop of chronic kidney disease stage IIIa-BMP will be monitored as needed #3 hypotension-possibly related to volume depletion, blood pressure will be monitored #4 permanent atrial fibrillation-patient is on a beta-sung and Eliquis #5 Acute severe protein caloric malnutrition-as evidenced by a 15.5% weight loss and p.o. intake meeting less than 75% of estimated nutritional needs, obvious fat/muscle loss throughout the body-diethas been liberalized to regular no added salt, Ensure Plus high-protein 4 times a day with med Passwas ordered, nutritional services is participating in his care Total clinical time spent by myself addressing the patient's medical issues, reviewing all of his data, and collaborating with patient's care team: 35 minutes Hospital Course: This 89-year-old white male was seen in the emergency room at [facility] with complaints of generalized weakness and inability to perform ADLs. He had suffered a fall at home due to the weakness but denied hitting his head and denied losing consciousness. Patient complained of dysuria. Patient also was in a house that did not have air conditioning and it was very hot outside. Labs obtained included a CBC which was remarkable for hemoglobin of 12.4, patient's chemistry profile was remarkable for creatinine of 1.32 and a BUN of 41. Patient's troponin was slightly elevated at 59 and 53 respectively, urinalysis showed over 100 white blood cells and +2 bacteria. EKG showed atrialfibrillation which the patient was known to have chronically. There is a small left pleural effusion noted on the chest x-ray with left basilar infiltration and/or atelectasis. Patient was admitted to [facility] to and placed on IV antibiotics, his diuretics were held and he was given fluids and his blood pressure responded to fluid administration. Patient's urine culture grew out E. coli which was s ensitive to Cipro, patient's antibiotic was changed to Cipro during his hospitalization. He was seen in consultation with PT and OT as well as nutritional services, he was felt to have malnutrition. Patient was transferred to PCU and his status improved, his blood pressure improved. Due to his cardi omyopathy however I felt that his diuretics needed to be resumed as an outpatient but at a smaller dosage. On 02/13/2025, patient was seen and examined:alert, oriented x3 and no apparent distress Constitutional Narrative: Patient appears cachectic General Appearance: cooperative, well kempt and well developed Orientation / Consciousness: awake, oriented to person, oriented to place and oriented to time Past medical history, appointments, medications, allergies reviewed. Previous Medical History PAST MEDICAL HISTORY Diagnosis Date Arthropathy, unspecified, site unspecified CAD (coronary artery disease) Essential hypertension, benign History of recurrent deep vein thrombosis (DVT) 2002 Obesity, unspecified Other premature beats Unspecified hypertensive heart disease Previous Surgical History PAST SURGICAL HISTORY Procedure Laterality Date ARTHRP ACETBLR/PROX FEM PROSTC AGRFT/ALGRFT 02/16 L side ARTHRP ACETBLR/PROX FEM PROSTC AGRFT/ALGRFT 1987 R side CATARACT EXTRACTION HX Bilateral 2014 lens implants PAST SURGICAL HISTORY OF N/A 05/20/2018 Resection Bladder Tumor Transurethral PERC TRANSL COR ANGIO 06/13/2010 Percutaneous Transluminal Coronary Angio Stent REVJ TOT HIP ARTHRP BTH W/WO AGRFT/ALGRFT 07/19 R side RPR 1ST INGUN HRNA AGE 5 YRS/> REDUCIBLE 1996 R side RPR 1ST INGUN HRNA AGE 5 YRS/> REDUCIBLE 08/18 L side TONSILLECTOMY HX age 8 Family History No family history on file. Patient Allergies ALLERGIES Allergen Reactions Sharon Inhibitors Other: See Comments Severe hypotension Vioxx [Rofecoxib] GI Upset Current Medications Current Outpatient Medications on File Prior to Visit Medication Sig potassium chloride ER (KLOR-CON M20) 20 mEq tablet Take 1 tablet by mouth two times a day. triamcinolone (KENALOG) 0.025 % cream Apply to affected area two times a day. Right ear. furosemide (LASIX) 40 mg tablet Take 1 tablet by mouth three times a day. Take 2 tablets in the am and 1 in the pm. (Patient taking differently: Take 40 mg by mouth two times a day. Take 2 tablets inthe am and 1 in the pm.) ELIQUIS 2.5 mg tab(s) Take 1 tablet by mouth every 12 hours. nitroglycerin sublingual (NITROSTAT) 0.4 mg SL tablet Dissolve 1 tablet under the tongue as needed.DISSOLVE ON TONGUE FOR CHEST PAIN. IF NO PAIN RELIEF, CALL 911 Amoxicillin 500 mg tablet Take 6 tablets one hour before the dentist and 2 tablets six hours afterward. allopurinol (ZYLOPRIM) 300 mg tablet Take 1 tablet by mouth once daily. pravastatin (PRAVACHOL) 20 mg tablet Take 1 tablet by mouth once daily. carvedilol (COREG) 3.125 mg tablet Take 1 tablet by mouth two times a day. brinzolamide-brimonidine 1%-0.2 % Ophth Susp Use 1 Drop in both eyes two times a day. bimatoprost (LUMIGAN) 0.01 % drop ophthalmic drops Use 1 Drop in both eyes daily at bedtime. Lutein 10 mg tab Take 10 mg by mouth once daily. multivitamin tablet Take 1 tablet by mouth once daily. niacin sustained release 500 mg tablet Take 1 tablet by mouth daily at bedtime. No current facility-administered medications on file prior to visit. Social History Social History Tobacco Use Smoking status: Never Smokeless tobacco: Never Vaping Use Vaping status: Never Used Substance Use Topics Alcohol use: No Drug use: No EXAM: BP 80/50 Pulse 108 Resp 16 SpO2 90% General Appearance: Well appearing, alert, in no acute distress, well-hydrated, well nourished., Thin, and Wheelchair. Lungs: Lungs clear to auscultation. No wheezing, rhonchi, rales.. Heart: RRR without murmur, gallop, or rubs. No ectopy. Health Maintenance List DTaP,Tdap,Td Vaccine(2 - Td or Tdap) due on 09/02/2021 Medicare Advantage Annual Wellness Visit due on 08/17/2024 Covid-19 Vaccine( season) due on 12/12/2024 RSV Vaccine(1 - 1-dose 75+ series) due on 05/16/2025 Influenza Vaccine(1) due on 04/17/2025 Depression Screening due on 05/16/2025 Anxiety Screening due on 05/16/2025 LDL Cholesterol due on 11/02/2025 Diabetes Screening due on 01/20/2028 Advance Directive Discussion Completed Shingrix Vaccine Completed Pneumococcal Vaccine: 50+ Completed Data reviewed [facility] reports A/P: 1. Essential hypertension, benign (I10) - Blood pressure management stable. 2. Stage 3 chronic kidney disease, unspecified whether stage 3a or 3b CKD ([facility]) (N18.30) - Renal function stable. 3. Coronary artery disease involving [place] coronary artery of [place] heart without angina pectoris(I25.10) - No angina reported. 4. Acute congestive heart failure, unspecified heart failure type ([facility]) (I50.9) - Dyspnea not labored; patient using supplemental oxygen as needed. - Emergency Medical Service Manager reduced furosemide to 1 tablet daily; potassium supplementation also reduced to 1 tablet daily. - Agreed with hydroelectric mechanic's adjustments. 5. Atrial fibrillation, unspecified type ([facility]) (I48.91) - Chronic, stable 6. Loss of appetite (R63.0) - Persistent anorexia; patient consuming minimal food and fluids. - Discussed potential causes including recent hospitalization and antibiotic use. - Recommended small, frequent meals and high-calorie shakes. - Advised against initiating alcohol or cannabis use for appetite stimulation. - Follow-up appointment scheduled for March 07; ordered blood work including potassium levels prior to visit. 7. Diarrhea, unspecified type (R19.7) - Recent onset of loose, light-colored stools. - Patient taking loperamide 1-2 tablets as needed. - Discussed potential benefit of [id number] probiotics to restore gut sli. Follow up prn I agree with the Chief Complaint, ROS, and Past Histories independently gathered by the clinical support director and the remaining scribed note accurately describes my personal service to the patient. Recording using Yelp software for draft documentation of the visit was discussed with the patient/authorized medical service representative; all questions welcomed and answered. Patient/authorized medical service representative agreed to proceed Medical Decision Making: Problems: Moderate: 1+ chronic illnesses with change and 2+ stable chronic illnesses Data: Unique test(s) ordered: 2 Risk: Moderate: Drug management Medical Decision Making Level: 4 - Moderate Tyra Munoz MD The documentation for this note was completed by Marilin Olsen MA acting as scribe for Tyra Munoz MD. February 24, 2025 2:23 PM. Marilin Olsen MA [facility]* Diagnosis Essential hypertension, benign Stage 3 chronic kidney disease, unspecified whether stage 3a or 3b CKD (HCC) Coronary artery disease involving [place] coronary artery of [place] heart without angina pectoris Acute congestive heart failure, unspecified heart failure type (HCC) Atrial fibrillation, unspecified type (HCC) Loss of appetite Anorexia Diarrhea, unspecified type documented in this encounter [facility]07-07-[facility]25 Telephone encounter Note* Telephone Encounter - Marilin Olsen MA - 02/20/2025 1:44 PM EDT Pt daughter Susan notified. Marilin Olsen MA [facility]07-07-2025 Miscellaneous Notes* Telephone Encounter - Marilin Olsen MA - 02/20/2025 1:44 PM EDT Pt daughter Susan notified. Marilin Olsen MA * Telephone Encounter - Yuniel Bergman APRN.CNP - 02/20/2025 1:41 PM EDT I reviewed his medications. None have appetite suppression as a side effect. Yuniel Bergman APRN.CNP * Telephone Encounter - Marilin Olsen MA - 02/20/2025 1:16 PM EDT Spoke with pt daughter, notified her that Yuniel Bergman recommended he add calorie dense shakes like Ensure or [place] [employer] shakes to help with weight gain. Advised daughter that she can discuss further at his appt on Thursday, she stated that that is too far away and she is trying to do everything she can so that pt doesn't have to have a feeding tube placed. She wants Yuniel or another provider to review pt medication and see if he is currently taking anything that would cause his appetite to be suppressed. Wants a call back TODAY. Marilin Olsen MA documented [facility] Telephone encounter Note * Telephone Encounter - Yuniel Bergman APRN.CNP - 02/20/2025 1:41 PM EDT I reviewed his medications. None have appetite suppression as a side effect. Yuniel Bergman APRN.CNP [facility]07-07-[facility]25 Telephone encounter Note* Telephone Encounter - Marilin Olsen MA - 02/20/2025 1:16 PM EDT Spoke with pt daughter, notified her that Yuniel Bergman recommended he add calorie dense shakes like Ensure or [employer] shakes to help with weight gain. Advised daughter that she can discuss further at his appt on Thursday, she stated that that is too far away and she is trying to do everything she can so that pt doesn't have to have a feeding tube placed. She wants Yuniel or another provider to review pt medication and see if he is currently taking anything that would cause his appetite to be suppressed. Wants a call back TODAY. Marilin Olsen MA [facility]07-03-[facility]25 Telephone encounter Note* Telephone Encounter - Marilin Olsen MA - 02/16/2025 10:05 AM EDT Pt scheduled 02/24/25 for hospital follow up with PCP. Marilin Olsen MA [facility]07-03-2025 Miscellaneous Notes* Telephone Encounter - Marilin Olsen MA - 02/16/2025 10:05 AM EDT Pt scheduled 02/24/25 for hospital follow up with PCP. Marilin Olsen MA * Telephone Encounter - Pritesh Osborn MD - 02/16/2025 8:46 AM EDT Please obtain records from cardiology and would recommend OV to discuss concerns with weight loss and medication options to help with weight gain. * Telephone Encounter - Leola Pollock RN - 02/15/2025 4:54 PM EDT Daughter Susan, jose d pt just saw hydroelectric mechanic, Dr. Wong. Dr. Wong advised pt needed to call pcp and ask pcp to prescribe appetite stimulate. Dr. Wong also took patient off 2 meds, but daughter cannot remember right now what they are and paperwork is not in front of her. Reports pt is not hungry for the first time in his life. Reports pt gained 40# and was in the hospital then lost 50 # from them taking the water off. Daughter aware pcp out of office and Director Of Catering Sales will return on Thursday. Asking if OC doctor can order something to increase pt's appetite. DDLeola Gutiérrez. Asking office to phone her with reply. Advised pt does not have anyone listed on chart we are permitted to call except him and will need to give office permission to give daughter medical informationdue to HIPAA. Daughter verbalized understanding. documented in this [facility] Telephone encounter Note * Telephone Encounter - Pritesh Osborn MD - 02/16/2025 8:46 AM EDT Please obtain records from cardiology and would recommend OV to discuss concerns with weight loss and medication options to help with weight gain. [facility] Work Phone: 1(467) 760-679107-02-2025 Telephone encounter Note* Telephone Encounter - Leola Pollock RN - 02/15/2025 4:54 PM EDT Daughter Susan, jose d pt just saw hydroelectric mechanic, Dr. Wong. Dr. Wong advised pt needed to call pcp and ask pcp to prescribe appetite stimulate. Dr. Wong also took patient off 2 meds, but daughter cannot remember right now what they are and paperwork is not in front of her. Reports pt is not hungry for the first time in his life. Reports pt gained 40# and was in the hospital then lost 50 # from them taking the water off. Daughter aware pcp out of office and Director Of Catering Sales will return on Thursday. Asking if OC doctor can order something to increase pt's appetite. DDM Marla. Asking office to phone her with reply. Advised pt does not have anyone listed on chart we are permitted to call except him and will need to give office permission to give daughter medical informationdue to HIPAA. Daughter verbalized understanding. [facility]06-30-[facility] Discharge summary [facility] Medical Records Department [address] [place] [address] Instructions for Home/Discharge Instructions 02/13/25 1415 MR#: [id number] Acct: [id number] Name: VALDO GOMEZ Rep #:[id number] : 1935 89 From: Tyra Ridley DO PCP: Dr. Tyra Munoz MD Status:AD M IN Discharge Instructions Diet Discharge Diet: No restrictions DC O2, CPAP, BIPAP needs Home O2 Discharge instructions: No Dressing / Incision Discharge Activity: Return to Normal Activity Weight Bearing Status: Full weight bearing Follow Up Care Test Results: Test results from this visit will be discussed in further detail at your follow- up appointment, if applicable. Discharge Plan Admission Admit Date/Time: 02/09/25 15:37 Primary Reason for Your Visit: Urinary tract infection, low blood pressure Attending Provider: Tyra Ridley Primary Care Provider: Tyra Munoz Consulting Providers: Ariela Luciano Discharge Orders/Prescriptions Prescriptions: New ciprofloxacin HCl 500 mg Tablet 500 mg PO BID Qty: 7 0RF Rx Instructions: Start in the evening of 02/13/2025 furosemide [Lasix] 40 mg tablet 40 mg PO DAILY Qty: 1 0RF potassium chloride [K-Tab] 20 mEq tablet extended release 20 meq PO DAILY Qty: 1 0RF phenazopyridine [Pyridium] 100 mg tablet 100 mg PO TID Qty: 9 0RF Continued pravastatin 20 mg tablet 20 mg PO DAILY allopurinol 300 mg tablet 300 mg PO DAILY nitroglycerin 0.4 mg tablet, sublingual 0.4 mg SUBLINGUAL Q5-15M PRN (Reason: chest pain) niacin [Niaspan Extended-Release] 500 mg tablet extended release 24 hr 500 mg PO QHS carvedilol [Coreg] 3.125 mg tablet 3.125 mg PO BID amoxicillin 500 mg tablet 2,000 mg PO DAILY PRN (Reason: DENTIST) Patient Comments: 30-60 minutes prior to dental procedure/ONLY WHEN HE GOES TO DENTIST. Lumigan 0.01 % drops 1 drp OPHTHALMIC QHS Rx Instructions: 1 DROP IN BOTH EYES Centrum Silver Men 300-600-300 mcg tablet 1 tab PO DAILY Simbrinza 1-0.2 % drops,suspension 1 drp OPHTHALMIC BID triamcinolone acetonide 0.025 % cream 1 applic topical BID Patient Comments: APPLY TO RIGHT EAR lutein 10 mg tablet 10 mg PO DAILY Rx Instructions: give with meal/snack Eliquis 2.5 mg tablet 2.5 mg PO BID Qty: 60 0RF Discontinued furosemide [Lasix] 40 mg tablet 40 mg PO BID Rx Instructions: one tablet in the AM and one tablet 4-6 hours later potassium chloride 20 mEq Tablet,Er Particles/Crystals 20 meq PO BIDCM 30 Days Qty: 60 0RF Referrals / Follow Up: Tyra Munoz MD [Primary Care Provider] - See Referral Note (In 2 weeks) Disposition Disposition (needs filled in before D/C Order can be placed): Home, Self Care 02/13/25 142[facility] LIANG CC: Dr. Tyra Munoz MD; Dr. Ariela Luciano MD ~ Signed [facility]06-30-2025 [facility] Medical Records Department [address] [place] [address] Discharge Summary 02/13/25 142 MR#: [id number] Acct: [id number] Name: VALDO GOMEZ Rep #: [id number] : 1935 89 From: Tyra Ridley DO PCP: Dr. Tyra Munoz MD Status:DIS IN Location: [place] [id number] Providers Date of Admission: 02/09/25 Date of Discharge: 02/13/25 Primary Care Physician: Dr. Tyra Munoz MD Reason For Visit: LOW BLOOD PRESSURE, UTI Diagnosis Discharge Diagnosis (1) UTI (urinary tract infection): Status: Acute Code(s): N39.0 - Urinary tract infection, site not specified Plan 1. Acute cystitis-again urine culture grew out E. coli-sensitive to Cipro, patient is now on Cipro #2 Dehydration on a backdrop of chronic kidney disease stage IIIa-BMP will be monitored as needed #3 hypotension-possibly related to volume depletion, blood pressure will be monitored #4 permanent atrial fibrillation-patient is on a beta-sung and Eliquis #5 Acute severe protein caloric malnutrition-as evidenced by a 15.5% weight loss and p.o. intake meeting less than 75% of estimated nutritional needs, obvious fat/muscle loss throughout the body- diet has been liberalized to regular no added salt, Ensure Plus high-protein 4 times a day with med Pass was ordered, nutritional services is participating in his care Total clinical time spent by myself addressing the patient's medical issues, reviewing all of his data, and collaborating with patient's care team: 35 minutes Medications at Discharge Home Medications allopurinol 300 mg tablet 300 mg PO DAILY 09/13/17 amoxicillin 500 mg tablet 2,000 mg PO DAILY PRN DENTIST 09/13/17 bimatoprost 0.01 % eye drops (Lumigan) 1 drp ophthalmic (eye) QHS 09/13/17 carvedilol 3.125 mg tablet (Coreg) 3.125 mg PO BID 09/13/17 [id number] 300 mcg-K 60 mcg-lycop 600 mcg-lutein 300 mcg tablet (Centrum Silver Men) 1 tab PO DAILY 09/13/17 niacin 500 mg tablet,extended release 24 hr (Niaspan) 500 mg PO QHS 09/13/17 nitroglycerin 0.4 mg sublingual tablet 0.4 mg sublingual Q5-15M PRN chest pain 09/13/17 pravastatin 20 mg tablet 20 mg PO DAILY 09/14/17 brinzolamide 1 %-brimonidine 0.2 % eye drops,suspension (Simbrinza) 1 drp ophthalmic (eye) BID 02/10/19 apixaban 2.5 mg tablet (Eliquis) 2.5 mg PO BID #60 tabs 12/07/24 lutein 10 mg tablet 10 mg PO DAILY 12/07/24 triamcinolone acetonide 0.025 % topical cream 1 applic topical BID 01/27/25 ciprofloxacin HCl 500 mg tablet 500 mg PO BID #7 tabs 02/13/25 furosemide 40 mg tablet (Lasix) 40 mg PO DAILY #1 TAB 02/13/25 phenazopyridine 100 mg tablet (Pyridium) 100 mg PO TID #9 tabs 02/13/25 potassium chloride 20 mEq tablet,extended release (K-Tab) 20 meq PO DAILY #1 TAB 02/13/25 Hospital Course Operations None Procedures None Summary of Care Provided Minutes Spent on Discharge: 31 Hospital Course: This 89-year-old white male was seen in the emergency room at [facility] with complaints of generalized weakness and inability to perform ADLs. He had suffered a fall at home due to the weakness but denied hitting his head and denied losing consciousness. Patient complained of dysuria. Patient also was in a house that did not have air conditioning and it was very hot outside. Labs obtained included a CBC which was remarkable for hemoglobin of 12.4, patient's chemistry profile was remarkable for creatinine of 1.32 and a BUN of 41. Patient's troponin was slightly elevated at 59 and 53 respectively, urinalysis showed over 100 white blood cells and +2 bacteria. EKG showed atrial fibrillation which the patient was known to have chronically. There is a small left pleural effusion noted on the chest x-ray with left basilar infiltration and/or atelectasis. Patient was admitted to [facility] to and placed on IV antibiotics, his diuretics were held and he was given fluids and his blood pressure responded to fluid administration. Patient's urine culture grew out E. coli which was sensitive to Cipro, patient's antibiotic was changed to Cipro during his hospitalization. He was seen in consultation with PT and OT as well as nutritional services, he was felt to have malnutrition. Patient was transferred to PCU and his status improved, his blood pressure improved. Due to his cardiomyopathy however I felt that his diuretics needed to be resumed as an outpatient but at a smaller dosage. On 02/13/2025, patient was seen and examined:alert, oriented x3 and no apparent distress Constitutional Narrative: Patient appears cachectic General Appearance: cooperative, well kempt and well developed Orientation / Consciousness: awake, oriented to person, oriented to place and oriented to time HEENT normocephalic, head/scalp atraumatic and moist oral mucous membranes Eyes PERRL, EOMs intact bilaterally and conjunctivae normal Neck supple, no JVD, thyr (more content not included)...[facility] 02-13-2025 Hospital Discharge instructionsAdditional Instructions Date [facility]: [facility]: 1(961) 342-501006-29-2025 Progress note Author Tyra Ridley [facility] Note Date/Time February 12, 2025 6:03 pm [facility] Medical Records Department [address] [place] [address] Progress Note - Hospitalist 02/12/25 1743 MR#: [id number] Acct: [id number] Name: VALDO GOMEZ Rep #:[id number] : 1935 89 From: Tyra Ridley DO PCP: Dr. Tyra Munoz MD Status:AD M IN Location: [place] [address] Reason for Visit Reason for Visit: Diagnoses Urinary tract infection, site not specified (02/09/25) Subjective Subjective Patient was seen and examined today, his urine culture grew out E. coli which was not sensitive to Rocephin, I changed the patient to Cipro. Objective Data Objective Data Vital Signs: Vital Signs Temp Pulse Resp BP Pulse Ox O2 Del Method O2 Flow Rate 97.4 F L 86 15 104/79 96 Room Air 2 02/12/25 13:33 02/12/25 13:33 02/12/25 13:33 02/12/25 13:33 02/12/25 13:33 02/12/25 13:02/09/25 14:00 Oxygen Flow Rate (L/min) 2 Oxygen Delivery Method Room Air Weight: 75 kg Body Mass Index (BMI) 22.4 Intake & Output: Intake and Output for Last 24 Hours 02/10/25 02/11/25 02/12/25 23:59 23:59 23:59 Intake Total 1635 / 1635 1790 / 1790 300 / 300 Output Total 825 / 825 600 / 800 775 / 775 Balance 810 / 810 1190 / 990 -475 / -475 Medical Nutrition Assessment Dietitian: Malnutrition Criteria Met Start: 02/10/25 09:54 Freq: Status: Active Protocol: Document 02/10/25 09:54 [facility] (Rec: 02/10/25 09:54 [facility] [id number]) Nutrition Malnutrition Evidence of Yes Malnutrition Exists Malnutrition (severe Acute Illness/Injury ): Malnutrition ( Severe pro/sanam unspecified) Evidenced By Suboptimal Energy Intake (Severe),Weight Loss (Severe), Physical Changes (Moderate) Clinical Problem Chronic Disease or Condition Related Malnutrition Etiology related to inadequate energy intake Signs/Symptoms as evidenced by 15.5% wt loss and po intake meeting< 75% of est nutritional needs; obvious fat/muscle loss throughout body Status Active Problem Recommendation Dietitian Will liberalize diet to Regular No Added Salt d/t signs Recommendations/ and symptoms of malnutrition Changes Will order ensure plus high protein 4x/day w/ medpass Will order fortified foods tid w/ meals for increased nutrition if consumed. Lab / Micro Data 02/10/25 09:00 02/10/25 09:00 Micro: Microbiology 02/09/25 12:47 Blood Culture (Wb) - Left Forearm Blood Culture - Preliminary No growth in 48 hours. 02/09/25 11:35 Blood Culture (Wb) - Left Forearm Blood Culture - Preliminary No growth in 48 hours. 02/09/25 11:56 Urine, Clean Catch Urine Culture - Final Escherichia coli 02/09/25 11:56 Urine, Clean Catch Urine Culture - Final Escherichia coli Physical Exam Narrative alert, oriented x3 and no apparent distress Constitutional Narrative: Patient appears cachectic General Appearance: cooperative, well kempt and well developed Orientation / Consciousness: awake, oriented to person, oriented to place and oriented to time HEENT normocephalic, head/scalp atraumatic and moist oral mucous membranes Eyes PERRL, EOMs intact bilaterally and conjunctivae normal Neck supple, no JVD, thyroid normal and no carotid bruits General: trachea midline Resp normal respiratory effort, no retractions, no use of accessory muscles and clearto auscultation bilaterally Auscultation: Negative for rales, rhonchi or wheezes Cardio S1 normal heart sound, S2 normal heart sound, no murmurs, no rub and no gallops Cardio Narrative: Heart rate and rhythm is irregular GI normal to inspection, nondistended, normoactive bowel sounds, soft to palpation,non-tender and non-distended Extremity no clubbing, cyanosis or edema Skin no rashes or lesions noted General Skin Exam: no breakdown Neuro oriented x3, CN's II-XII intact bilaterally, moves all extremities, no focal motor deficits and no sensory deficits noted Sensorium / Orientation: awake and alert Speech: speech normal Psych affect normal Assessment & Plan Assessment/Plan (1) UTI (urinary tract infection): PLAN: Plan 1. Acute cystitis-again urine culture grew out E. coli-sensitive to Cipro, patient is now on Cipro #2 chronic kidney disease stage IIIa-BMP will be monitored as needed #3 hypotension-possibly related to volume depletion, blood pressure will be monitored #4 permanent atrial fibrillation-patient is on a beta-sung and Eliquis #5 Acute severe protein caloric malnutrition-as evidenced by a 15.5% weight loss and p.o. intake meeting less than 75% of estimated nutritional needs, obvious fat/muscle loss throughout the body-diet has been liberalized to regularno added salt, Ensure Plus high-protein 4 times a day with med Pass was ordered,nutritional services is participating in his care Total clinical time spent by myself addressing the patient's medical issues, reviewing all of his data, and collaborating with patient's care team: 35 minutes Charges/Coding Visit Charges Inpatient E&M: 71410 Subs Hosp L2 02/12/25 1803 <Electronically signed by Tyra Ridley DO> Cosigner Signature (if applicable): CC: ~ Signed [facility] Work Phone: 1(902) 947-608606-29-2025 Progress note [facility] Medical Records Department [address] [place] [address] Progress Note - Hospitalist 02/12/25 1743 MR#: [id number] Acct: [id number] Name: VALDO GOMEZ Rep #:[id number] : 1935 89 From: Tyra Ridley DO PCP: Dr. Tyra Munoz MD Status:AD M IN Location: [place] [address] Reason for Visit Reason for Visit: Diagnoses Urinary tract infection, site not specified (02/09/25) Subjective Subjective Patient was seen and examined today, his urine culture grew out E. coli which was not sensitive to Rocephin, I changed the patient to Cipro. Objective Data Objective Data Vital Signs: Vital Signs Temp Pulse Resp BP Pulse Ox O2 Del Method O2 Flow Rate 97.4 F L 86 15 104/79 96 Room Air 2 02/12/25 13:33 02/12/25 13:33 02/12/25 13:33 02/12/25 13:33 02/12/25 13:33 02/12/25 13:33 02/09/25 14:00 Oxygen Flow Rate (L/min) 2 Oxygen Delivery Method Room Air Weight: 75 kg Body Mass Index (BMI) 22.4 Intake & Output: Intake and Output for Last 24 Hours 02/10/25 02/11/25 02/12/25 23:59 23:59 23:59 Intake Total 1635 / 1635 1790 / 1790 300 / 300 Output Total 825 / 825 600 / 800 775 / 775 Balance 810 / 810 1190 / 990 -475 / -475 Medical Nutrition Assessment Dietitian: Malnutrition Criteria Met Start: 02/10/25 09:54 Freq: Status: Active Protocol: Document 02/10/25 09:54 [facility] (Rec: 02/10/25 09:54 [facility] [id number]) Nutrition Malnutrition Evidence of Yes Malnutrition Exists Malnutrition (severe Acute Illness/Injury ): Malnutrition ( Severe pro/sanam unspecified) Evidenced By Suboptimal Energy Intake (Severe),Weight Loss (Severe), Physical Changes (Moderate) Clinical Problem Chronic Disease or Condition Related Malnutrition Etiology related to inadequate energy intake Signs/Symptoms as evidenced by 15.5% wt loss and po intake meeting< 75% of est nutritional needs; obvious fat/muscle loss throughout body Status Active Problem Recommendation Dietitian Will liberalize diet to Regular No Added Salt d/t signs Recommendations/ and symptoms of malnutrition Changes Will order ensure plus high protein 4x/day w/ medpass Will order fortified foods tid w/ meals for increased nutrition if consumed. Lab / Micro Data 02/10/25 09:00 02/10/25 09:00 Micro: Microbiology 02/09/25 12:47 Blood Culture (Wb) - Left Forearm Blood Culture - Preliminary No growth in 48 hours. 02/09/25 11:35 Blood Culture (Wb) - Left Forearm Blood Culture - Preliminary No growth in 48 hours. 02/09/25 11:56 Urine, Clean Catch Urine Culture - Final Escherichia coli 02/09/25 11:56 Urine, Clean Catch Urine Culture - Final Escherichia coli Physical Exam Narrative alert, oriented x3 and no apparent distress Constitutional Narrative: Patient appears cachectic General Appearance: cooperative, well kempt and well developed Orientation / Consciousness: awake, oriented to person, oriented to place and oriented to time HEENT normocephalic, head/scalp atraumatic and moist oral mucous membranes Eyes PERRL, EOMs intact bilaterally and conjunctivae normal Neck supple, no JVD, thyroid normal and no carotid bruits General: trachea midline Resp normal respiratory effort, no retractions, no use of accessory muscles and clearto auscultation bilaterally Auscultation: Negative for rales, rhonchi or wheezes Cardio S1 normal heart sound, S2 normal heart sound, no murmurs, no rub and no gallops Cardio Narrative: Heart rate and rhythm is irregular GI normal to inspection, nondistended, normoactive bowel sounds, soft to palpation,non-tender and non-distended Extremity no clubbing, cyanosis or edema Skin no rashes or lesions noted General Skin Exam: no breakdown Neuro oriented x3, CN's II-XII intact bilaterally, moves all extremities, no focal motor deficits and no sensory deficits noted Sensorium / Orientation: awake and alert Speech: speech normal Psych affect normal Assessment & Plan Assessment/Plan (1) UTI (urinary tract infection): PLAN: Plan 1. Acute cystitis-again urine culture grew out E. coli-sensitive to Cipro, patient is now on Cipro #2 chronic kidney disease stage IIIa-BMP will be monitored as needed #3 hypotension-possibly related to volume depletion, blood pressure will be monitored #4 permanent atrial fibrillation-patient is on a beta-sung and Eliquis #5 Acute severe protein caloric malnutrition-as evidenced by a 15.5% weight loss and p.o. intake meeting less than 75% of estimated nutritional needs, obvious fat/muscle loss throughout the body-diethas been liberalized to regularno added salt, Ensure Plus high-protein 4 times a day with med Pass was ordered,nutritional services is participating in his care Total clinical time spent by myself addressing the patient's medical issues, reviewing all of his data, and collaborating with patient's care team: 35 minutes Charges/Coding Visit Charges Inpatient E&M: 07732 Subs Hosp L2 02/12/25 1803 Cosigner Signature (if applicable): CC: ~ Signed [facility]06-27-2025 Progress note Author Tyra Ridley [facility] Note Date/Time February 10, 2025 4:11 pm [facility] Medical Records Department [address] [place] [address] Progress Note - Hospitalist 02/10/251606 MR#: [id number] Acct: [id number] Name: VALDO GOMEZ Rep #:[id number] : 1935 89 From: Tyra Ridley DO PCP: Dr. 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 Objective Data Objective Data Vital Signs: Vital Signs Temp Pulse Resp BP Pulse Ox O2 Del Method O2 Flow Rate 98.8 F 89 20 H 99/62 95 Room Air 2 02/10/25 06:02/10/25 11:00 02/10/25 11:00 02/10/25 11:00 02/10/25 11:00 02/10/25 11:00 02/09/25 14:00 Oxygen Flow Rate (L/min) 2 Oxygen Delivery Method Room Air Weight: 72.9 kg Body Mass Index (BMI) 21.8 Intake & Output: Intake and Output for Last 24 Hours 02/08/25 02/09/25 02/10/25 23:59 23:59 23:59 Intake Total 2550 / 2550 1105 / 1105 Output Total 225 / 225 300 / 300 Balance 2325 / 2325 805 / 805 Medical Nutrition Assessment Dietitian: Malnutrition Criteria Met Start: 02/10/25 09:54 Freq: Status: Active Protocol: Document 02/10/25 09:54 KRISTEN (Rec: 02/10/25 09:54 [facility] [id number]) Nutrition Malnutrition Evidence of Yes Malnutrition Exists Malnutrition (severe Acute Illness/Injury ): Malnutrition ( Severe pro/sanam unspecified) Evidenced By Suboptimal Energy Intake (Severe),Weight Loss (Severe), Physical Changes (Moderate) Clinical Problem Chronic Disease or Condition Related Malnutrition Etiology related to inadequate energy intake Signs/Symptoms as evidenced by 15.5% wt loss and po intake meeting< 75% of est nutritional needs; obvious fat/muscle loss throughout body Status Active Problem Recommendation Dietitian Will liberalize diet to Regular No Added Salt d/t signs Recommendations/ and symptoms of malnutrition Changes Will order ensure plus high protein 4x/day w/ medpass Will order fortified foods tid w/ meals for increased nutrition if consumed. Lab / Micro Data 02/10/25 09:00 02/10/25 09:00 Labs: Laboratory Results - last 24 hr 02/09/25 16:00: Lactic Acid 1.6, Troponin T Hi Sens 4Hr 14 02/10/25 09:00: WBC 7.3, RBC 3.54 L, Hgb 12.8 L, Hct 39.0 L, MCV 110.2 H, MCH 36.2 H, MCHC 32.8, RDW Std Deviation 65.0 H, RDW Coeff of Yanet 15.9 H, Plt Count 108 L, MPV 11.3, Immature Gran % (Auto) 0.600, Neut % (Auto) 74.7 H, Lymph % (Auto) 13.2 L, Floyd % (Auto) 8.8, Eos % (Auto) 2.6, Baso % (Auto) 0.1, Absolute Neuts (auto) 5.4, Absolute Lymphs (auto) 0.96, Nucleated RBC % 0, Sodium 137, Potassium 4.1, Chloride 102, Carbon Dioxide 24.9, Anion Gap 10, BUN 42 H, Creatinine 1.26 H, Estim Creat Clear Calc 41.79 L, Est GFR (MDRD) Non-Af 55 L, BUN/Creatinine Ratio 33.1 H, Glucose 142 H, Calcium 8.6 Micro: Microbiology 02/09/25 11:56 Urine, Clean Catch Urine Culture - Preliminary 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 02/09/25 11:56 Urine, Clean Catch Urine Culture - Preliminary 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 Physical Exam Const alert, oriented x3 and no apparent distress Constitutional Narrative: Patient appears cachectic General Appearance: cooperative, well kempt and well developed Orientation / Consciousness: awake, oriented to person, oriented to place and oriented to time HEENT normocephalic, head/scalp atraumatic and moist oral mucous membranes Eyes PERRL, EOMs intact bilaterally and conjunctivae normal Neck supple, no JVD, thyroid normal and no carotid bruits General: trachea midline Resp normal respiratory effort, no retractions, no use of accessory muscles and clearto auscultation bilaterally Auscultation: Negative for rales, rhonchi or wheezes Cardio S1 normal heart sound, S2 normal heart sound, no murmurs, no rub and no gallops Cardio Narrative: Heart rate and rhythm is irregular GI normal to inspection, nondistended, normoactive bowel sounds, soft to palpation,non-tender and non-distended Extremity no clubbing, cyanosis or edema Skin no rashes or lesions noted General Skin Exam: no breakdown Neuro oriented x3, CN's II-XII intact bilaterally, moves all extremities, no focal motor deficits and no sensory deficits noted Sensorium / Orientation: awake and alert Speech: speech normal Psych affect normal Assessment & Plan Assessment/Plan (1) UTI (urinary tract infection): PLAN: Plan 1. 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 Work Phone: 1([phone]) [phone] Progress note [facility] Medical Records Department [facility] [place] [address] Progress Note - Hospitalist 02/10/25 1607 MR#: [id number] Acct: [id number] Name: VALDO GOMEZ Rep #:[id number] : 1935 89 From: Tyra Ridley DO PCP: Dr. 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 Objective Data Objective Data Vital Signs: Vital Signs Temp Pulse Resp BP Pulse Ox O2 Del Method O2 Flow Rate 98.8 F 89 20 H 99/62 95 Room Air 2 02/10/25 06:00 02/10/25 11:00 02/10/25 11:00 02/10/25 11:00 02/10/25 11:00 02/10/25 11:00 02/09/25 14:00 Oxygen Flow Rate (L/min) 2 Oxygen Delivery Method Room Air Weight: 72.9 kg Body Mass Index (BMI) 21.8 Intake & Output: Intake and Output for Last 24 Hours 02/08/25 02/09/25 02/10/25 23:59 23:59 23:59 Intake Total 2550 / 2550 1105 / 1105 Output Total 225 / 225 300 / 300 Balance 2325 / 2325 805 / 805 Medical Nutrition Assessment Dietitian: Malnutrition Criteria Met Start: 02/10/25 09:54 Freq: Status: Active Protocol: Document 02/10/25 09:54 KRISTEN (Rec: 02/10/25 09:54 [facility] [id number]) Nutrition Malnutrition Evidence of Yes Malnutrition Exists Malnutrition (severe Acute Illness/Injury ): Malnutrition ( Severe pro/sanam unspecified) Evidenced By Suboptimal Energy Intake (Severe),Weight Loss (Severe), Physical Changes (Moderate) Clinical Problem Chronic Disease or Condition Related Malnutrition Etiology related to inadequate energy intake Signs/Symptoms as evidenced by 15.5% wt loss and po intake meeting< 75% of est nutritional needs; obvious fat/muscle loss throughout body Status Active Problem Recommendation Dietitian Will liberalize diet to Regular No Added Salt d/t signs Recommendations/ and symptoms of malnutrition Changes Will order ensure plus high protein 4x/day w/ medpass Will order fortified foods tid w/ meals for increased nutrition if consumed. Lab / Micro Data 02/10/25 09:00 02/10/25 09:00 Labs: Laboratory Results - last 24 hr 02/09/25 16:00: Lactic Acid 1.6, Troponin T Hi Sens 4Hr 14 02/10/25 09:00: WBC 7.3, RBC 3.54 L, Hgb 12.8 L, Hct 39.0 L, MCV 110.2 H, MCH 36.2 H, MCHC 32.8, RDW Std Deviation 65.0 H, RDW Coeff of Yanet 15.9 H, Plt Count 108 L, MPV 11.3, Immature Gran % (Auto) 0.600, Neut % (Auto) 74.7 H, Lymph % (Auto) 13.2 L, Floyd % (Auto) 8.8, Eos % (Auto) 2.6, Baso % (Auto) 0.1, Absolute Neuts (auto) 5.4, Absolute Lymphs (auto) 0.96, Nucleated RBC % 0, Sodium 137, Potassium 4.1, Chloride 102, Carbon Dioxide 24.9, Anion Gap 10, BUN 42 H, Creatinine 1.26 H, Estim Creat Clear Calc 41.79 L, Est GFR (MDRD) Non-Af 55 L, BUN/Creatinine Ratio 33.1 H, Glucose 142 H, Calcium 8.6 Micro: Microbiology 02/09/25 11:56 Urine, Clean Catch Urine Culture - Preliminary 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 02/09/25 11:56 Urine, Clean Catch Urine Culture - Preliminary 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 Physical Exam Const alert, oriented x3 and no apparent distress Constitutional Narrative: Patient appears cachectic General Appearance: cooperative, well kempt and well developed Orientation / Consciousness: awake, oriented to person, oriented to place and oriented to time HEENT normocephalic, head/scalp atraumatic and moist oral mucous membranes Eyes PERRL, EOMs intact bilaterally and conjunctivae normal Neck supple, no JVD, thyroid normal and no carotid bruits General: trachea midline Resp normal respiratory effort, no retractions, no use of accessory muscles and clearto auscultation bilaterally Auscultation: Negative for rales, rhonchi or wheezes Cardio S1 normal heart sound, S2 normal heart sound, no murmurs, no rub and no gallops Cardio Narrative: Heart rate and rhythm is irregular GI normal to inspection, nondistended, normoactive bowel sounds, soft to palpation,non-tender and non-distended Extremity no clubbing, cyanosis or edema Skin no rashes or lesions noted General Skin Exam: no breakdown Neuro oriented x3, CN's II-XII intact bilaterally, moves all extremities, no focal motor deficits and no sensory deficits noted Sensorium / Orientation: awake and alert Speech: speech normal Psych affect normal Assessment & Plan Assessment/Plan (1) UTI (urinary tract infection): PLAN: Plan 1. 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06-26-2025 History and physical note Author Ariela Luciano [facility] Note Date/Time February 09, 2025 3:[address] [facility] Medical Records Department [address] [place] [address] H&P Exam - Hospitalist 02/09/25 1537 MR#: [id number] Acct: [id number] Name: VALDO GOMEZ Rep #:[id number] : 1935 89 From: Ariela Luciano MD PCP: Dr. Tyra Munoz MD Status:RE G ER Location: ED HPI - General General Date of Admission: 02/09/25 Date of Service: 02/09/25 Chief Complaint: Generalized weakness HPI Narrative VALDO GOMEZ, is a 89-year-old male history of A-fib on Eliquis, hypertension, CKD, gout, CAD, heart failure who presented [facility] ED 02/09/2025 with generalized weakness to the point he was unable to get out of bed. Yesterday around 4 PM he fell because he was so weak but did not hit his head or lose consciousness. Also complaining of painful urination. Additionally he does not have central air and has been very hot. In the ED patient afebrile, heart rate 75 with a blood pressure 84/44, respiratory rate 21with a pulse ox 99% on room air. CBC with white blood cell count of 10.3, hemoglobin 12.4, BMP with BUN of 41 and creatinine of 1.32 which is similar to previous. UA suspicious for infection. Troponin of 59. Lactic acid within normal limits. CT of the brain with no acute process, cervical CT with sclerosis of C3 and C5 vertebrae with recommendation to rule out metastatic deposit. Chest x-ray with small left pleural effusion with infiltrate versus atelectasis. Given patient's urinary symptoms with UA suspicious for UTI with suspected patient's generalized weakness was secondary to underlying urinary tract infection. Patient given IV fluids and hospitalist contacted for admission. Patient evaluated with family members at bedside. Patient has been somewhat generally weak for the past 2 days, on Thursday he had a temperature of 102 and had chills and sweats and has not been eating very well, fell yesterday due to weakness and today due to worsening weakness he came to the ED, daughter also feels like he cannot really hear them as well either. Patient denies any chest pain or shortness of breath, no abdominal pain, does have burning on urination but other than that, generalized weakness, fever 2 days ago he denies any other new or acute complaints [facility] Medical History (Updated 02/09/25 @ 15:[address] Ariela Luciano MD) Atherosclerosis of coronary artery of [place] heart without angina pectoris Coronary artery disease DVT (deep venous thrombosis) Gout Hyperlipidemia Hypertension Kidney disease Myocardial infarct Non-smoker Old inferior wall myocardial infarction On home oxygen therapy Home Medications ?Medication ?Instructions ?Recorded ?Last Taken ?Type allopurinol 300 mg tablet 300 mg PO DAILY 09/13/17 History amoxicillin 500 mg tablet 2,000 mg PO DAILY PRN DENTIS T 09/13/17 Unknown History bimatoprost 0.01 % eye drops 1 drp ophthalmic (eye) QH S 09/13/17 12/07/24 History (Clau) carvedilol 3.125 mg tablet (Coreg) 3.125 mg PO BID 02/09/25 History [id number] 300 mcg-K 60 1 tab PO DAILY 09/13/17 02/09/25 History mcg-lycop 600 mcg-lutein 300 mcg tablet (Centrum Silver Men) niacin 500 mg tablet,extended 500 mg PO QHS 09/13/17 0 12/06/24 History release 24 hr (Niaspan) nitroglycerin 0.4 mg sublingual 0.4 mg sublingual Q5-1 5M PRN chest 09/13/17 Unknown History tablet pain pravastatin 20 mg tablet 20 mg PO DAILY 09/14/1701/16 History brinzolamide 1 %-brimonidine 0.2 % 1 drp ophthalmic (e ye) BID 02/10/19 Unknown History eye drops,suspension (Simbrinza) apixaban 2.5 mg tablet (Eliquis) 2.5 mg PO BID #60 tab s 12/07/24 02/09/25 Rx lutein 10 mg tablet 10 mg PO DAILY 12/07/2401/16 History potassium chloride 20 mEq 20 meq PO BIDCM 30 days #60 tabs 01/09/25 02/09/25 Rx tablet,extended release(part/cryst) furosemide 40 mg tablet (Lasix) 40 mg PO BID 01/27/25 02/09/25 History triamcinolone acetonide 0.025 % 1 applic topical BID 0 01/27/25 Unknown History topical cream Allergy/AdvReac Type Severity Reaction Status Date / Time SHARON Inhibitors AdvReac Hypotensive Verified 02/09/25 15:09 Family History Mother , AGe 71 Congestive heart failure Sister , Age 66 CAD (coronary artery disease) Breast cancer S/P CABG (coronary artery bypass graft) Surgical History H/O bilateral hip replacements H/O bilateral inguinal hernia repair H/O right coronary artery stent placement (06/13/10) History of coronary artery stent placement Social History household members: spouse housing: house current occupational status: retired Smoking Status: Never smoker ROS ROS Narrative General: Fever 2 days ago HENT: Denies headache, denies stuffy nose, denies sore throat EYES: Denies changes in vision Resp: Denies cough, denies any new shortness of breath Cardiac: Denies chest pain GI: Denies abdominal pain, denies changes in bowel, denies nausea/vomiting, has had poor p.o. intake : Denies changes in urination Extremity: Burning on urination MSK: Generalized weakness Neuro: Denies any numbness/tingling Heme: Denies any new bleeding Skin: Denies rashes Psychiatric: No complaints voiced Vital Signs Vital Signs Vital Signs: 02/09/25 11:21 02/09/25 11:46 02/09/25 11:51 Temperature 99 F 99 F Temperature Source Temporal Oral Pulse Rate 75 79 Respiratory Rate 21 H 23 H Blood Pressure 84/44 L 73/52 L Blood Pressure Mean 57 59 Pulse Ox 99 94 94 Oxygen Delivery Method Room Air Room Air Room Air Oxygen Flow Rate (L/min) 02/09/25 12:15 02/09/25 12:25 02/09/25 14:00 Temperature 99.1 F 98.9 F Temperature Source Oral Oral Pulse Rate 75 72 67 Respiratory Rate 19 H 16 13 Blood Pressure 82/52 L 82/52 L 85/60 L Blood Pressure Mean 62 62 68 Pulse Ox 94 Oxygen Delivery Method Nasal Cannula Oxygen Flow Rate (L/min) 2 02/09/25 15:00 Temperature 98.9 F Temperature Source Oral Pulse Rate 70 Respiratory Rate 18 Blood Pressure 83/51 L Blood Pressure Mean 61 Pulse Ox Oxygen Delivery Method Oxygen Flow Rate (L/min) Physical Exam Narrative General: Alert, answering questions appropriately, no apparent distress HEENT: Atraumatic, normocephalic, does have sunken appearing eyes which is not new Eyes: Anicteric, normal conjunctiva, extraocular movements grossly intact Neck: Supple Respiratory: Overall clear to auscultation bilaterally, normal respiratory effort Cardiovascular: A-fib with regular rate GI: Soft, nontender, nondistended Extremities: No edema Musculoskeletal: Moving all extremities Neuro: No overt focal neurological deficits Skin: No rashes appreciated Psych: Cooperative Results Lab / Micro Data 02/09/25 11:35 02/09/25 11:35 Labs: Laboratory Results - last 24 hr 02/09/25 11:35: WBC 10.3, RBC 3.43 L, Hgb 12.4 L, Hct 37.7 L, MCV 109.9 H, MCH 36.2 H, MCHC 32.9, RDW Std Deviation 65.1 H, RDW Coeff of Yanet 16.0 H, Plt Count 115 L, MPV 10.7, Immature Gran % (Auto) 0.400, Neut % (Auto) 80.1 H, Lymph % (Auto) 8.9 L, Floyd % (Auto) 10.2 H, Eos % (Auto) 0.2, Baso % (Auto) 0.2, Absolute Neuts (auto) 8.2 H, Absolute Lymphs (auto) 0.92, Nucleated RBC % 0, Anisocytosis RARE, PT 23.7 H, INR 2.1, APTT 37.3 H, Sodium 137, Potassium 4.4, Chloride 102, Carbon Dioxide 26.6, Anion Gap 8, BUN 41 H, Creatinine 1.32 H, EstGFR (MDRD) Non-Af 52 L, BUN/Creatinine Ratio 31.1 H, Glucose 143 H, Lactic Acid 2.0, Calcium 8.8, Total Bilirubin 1.18, AST 39 H, ALT 19, Alkaline Phosphatase 176 H, Troponin T High Sens 59 H* D, Total Protein 5.6 L, Albumin 2.6 L, Globulin 3.0, Albumin/Globulin Ratio 0.9 02/09/25 11:56: Urine Color Yellow, Urine Clarity Cloudy, Urine pH 6.0, Ur Specific [place] 1.020, Urine Protein 100 H, Urine Glucose (UA) Normal, Urine Ketones Negative, Urine Occult Blood 250 H, Urine Nitrite Negative, Urine Bilirubin Negative, Urine Urobilinogen Normal, Ur Leukocyte Esterase 500 H, Urine RBC 0 SEEN, Urine WBC >100 SEEN, Ur Squamous Epith Cells 0 SEEN, Urine Bacteria 2+, Urine Mucus 0 SEEN 02/09/25 13:51: Troponin T Hi Sens 2 Hr 53 H Imaging Radiology Impression Chest X-Ray 02/09/25 11:29 IMPRESSION: Small left pleural effusion with left basilar infiltration and/or atelectasis. Reading Location: [id number] Brain CT 02/09/25 12:19 IMPRESSION: CHRONIC CHANGES. NO ACUTE FINDINGS. Stable examination. Reading Location: [id number] Cervical Spine CT 02/09/25 12:19 IMPRESSION: DEGENERATIVE CHANGES OF THE CERVICAL SPINE. NO EVIDENCE OF SIGNIFICANT OSSEOUS CENTRAL CANAL OR NEURAL FORAMINAL STENOSIS. Sclerosis of the C3 and C5 vertebrae. Metastatic deposit should be ruled out. Reading Location: [id number] Assessment & Plan Assessment/Plan (1) UTI (urinary tract infection): PLAN: Plan # Generalized weakness suspect secondary to UTI -UA suspicious for UTI -Urine and blood cultures ordered and pending -Hydrating cautiously with IV fluids given heart failure history # Elevated troponin -No chest pain -Suspect this is secondary to underlying infection and hypotension -Initial troponin 59 with repeat of 53 - Patient to be monitored on telemetry # Hypotension -Suspect due to combination of infection and dehydration given lack of central air with significant heat -Does not meet other criteria though would be consistent with sepsis at this time -Patient receiving second bolus as his blood pressure remained low and on my evaluation blood pressure was 94/62, hence improving -Hold home antihypertensives - Will monitor patient closely in the ICU in the event patient is early sepsis and decompensates # C3 and C5 sclerosis -CT recommended MRI to rule out metastatic deposits -Suspect patient's weakness and falls are due to his UTI and low blood pressure in the cervical spine findings are incidental - Given patient's present clinical condition will defer MRI until patient clinically stable - Due to time constraints unable to discuss this finding and further management with family in the ED, this will ultimately need addressed moving forward # History of heart failure with unclear subtype -Echo last month with EF of 40% with mild to moderate global hypokinesis of the left ventricle, PASP of 46, and moderate mitral valve insufficiency -Daily weights, I's and O's -Holding home carvedilol and Lasix due to presenting problem and blood pressure # History of atrial fibrillation -Continue Eliquis -Holding Coreg due to patient's hypotension #Gout -Continue home allopurinol # History of CAD -With stent placement to RCA in 2009 -Patient on Eliquis and aspirin, will continue -Holding beta-sung due to hypotension # CKD stage III a -Appears to be at baseline -Avoid nephrotoxic agents -Daily BMPs #DVT ppx: Chronically on Eliquis Ariela Luciano MD CODE status: Discussed CODE status at length including difference between FULL code, DNR-CCA, and DNR-CC status. Following discussions about the differences inthese status, requested DNR/DNI. Advanced Care Planning Face to Face Time: 12 minutes. Charges/Coding Multi Select Codes Visit Charges Visit Charges: 98619 Init Hosp L2 Hospitalists' Procedures Procedures: 32009 Advncd Care Plan 30 Min 02/09/25 1546 <Electronically signed by Ariela Luciano MD> Cosigner Signature (if applicable): CC: Dr. Tyra Munoz MD; Dr. Arieal Luciano MD~ Signed [facility] Work Phone: 1(324) 981-383506-26-2025 Discharge summary Author Mike Gonzalez [facility] Note Date/Time February 09, 2025 3:16 pm [facility] Medical Records Department [address] [place] [address] Emergency Department Summary 02/09/25 MR#: [id number] Acct: [id number] Name: VALDO GOMEZ Rep #:[id number] : 1935 89 From: Mike Gonzalez DO PCP: Dr. Tyra Munoz MD Status:RE G ER Location: ED HPI History of Present Illness Chief Complaint: Complaint Narrative Narrative: Patient is a 81-year-old male with past medical history of hypertension, hyperlipidemia, chronic kidney disease, atrial fibrillation on Eliquis, heart failure who presented to the emergency department with chief complaint of generalized weakness inability to get up out of bed this morning he felt extremely weak he said. He gets yesterday around 4 PM he states that he had a fall because he felt so weak he notes that he fell backwards but denies hitting his head denies passing out losing consciousness. He states that he is complaining of painful urination. Per EMS the house was very hot as they do nothave central air in the home but daughter at bedside states that there is another house that he could have gone to that has central air however he was refusing he states that this was his whether and he did not believe he needed air conditioning. [facility] Medical History (Updated 06/26/25 @ 15:11 by Karol Fair) DVT (deep venous thrombosis) Gout Atherosclerosis of coronary artery of [place] heart without angina pectoris Hypertension Hyperlipidemia Old inferior wall myocardial infarction Home Medications ?Medication ?Instructions ?Recorded ?Last Taken ?Type allopurinol 300 mg tablet 300 mg PO DAILY 09/13/17 History amoxicillin 500 mg tablet 2,000 mg PO DAILY PRN DENTIS T 09/13/17 Unknown History bimatoprost 0.01 % eye drops 1 drp ophthalmic (eye) QH S 09/13/17 12/07/24 History (Lumigan) carvedilol 3.125 mg tablet (Coreg) 3.125 mg PO BID 02/09/25 History otlrrocw-hf-jzhhu 300 mcg-K 60 1 tab PO DAILY 09/13/17 02/09/25 History mcg-lycop 600 mcg-lutein 300 mcg tablet (Centrum Silver Men) niacin 500 mg tablet,extended 500 mg PO QHS 09/13/17 0 12/06/24 History release 24 hr (Niaspan) nitroglycerin 0.4 mg sublingual 0.4 mg sublingual Q5-1 5M PRN chest 09/13/17 Unknown History tablet pain pravastatin 20 mg tablet 20 mg PO DAILY 09/14/1701/16 History brinzolamide 1 %-brimonidine 0.2 % 1 drp ophthalmic (e ye) BID 02/10/19 Unknown History eye drops,suspension (Simbrinza) apixaban 2.5 mg tablet (Eliquis) 2.5 mg PO BID #60 tab s 12/07/24 02/09/25 Rx lutein 10 mg tablet 10 mg PO DAILY 12/07/2401/16 History potassium chloride 20 mEq 20 meq PO BIDCM 30 days #60 tabs 01/09/25 02/09/25 Rx tablet,extended release(part/cryst) furosemide 40 mg tablet (Lasix) 40 mg PO BID 01/27/25 02/09/25 History triamcinolone acetonide 0.025 % 1 applic topical BID 0 01/27/25 Unknown History topical cream Allergy/AdvReac Type Severity Reaction Status Date / Time SHARON Inhibitors AdvReac Hypotensive Verified 02/09/25 15:09 Family History Mother , AGe 71 Congestive heart failure Sister , Age 66 CAD (coronary artery disease) Breast cancer S/P CABG (coronary artery bypass graft) Surgical History H/O bilateral inguinal hernia repair H/O bilateral hip replacements H/O right coronary artery stent placement (06/13/10) Social History household members: spouse housing: house current occupational status: retired Smoking Status: Never smoker ROS ROS ED ROS Narrative Constitutional: Denies headache, lightness, dizziness, fevers, chills Eyes: Denies change in vision double vision blurry vision Cardiovascular: Denies chest pain Respiratory: Denies shortness of breath coughing wheezing Abdomen: Denies abdominal pain nausea vomit diarrhea : Complains of painful urination as noted above Neurological: Denies numbness, wheeze, tingling Musculoskeletal: Denies back pain Skin: Denies any rashes or lesions EXAM Physical Exam Narrative Exam Narrative: General: Patient was lying in bed rest comfortably did not appear to be acute distress Head: Atraumatic, normocephalic Eyes: PERRL bilaterally, EOMI blood, no conjunctival injection noted Neck: Soft, supple, trachea midline no tenderness palpation midline cervical spine Cardiovascular: Regular rate and rhythm Respiratory: Clear to auscultation bilaterally Abdomen: Soft, nondistended, no tenderness palpation Extremities: +3/5 strength noted in the bilateral upper and lower extremities, radial pulses +2/4 in the bilateral extremities, no pedal edema on exam Neurological: Patient following commands knew that he was at the hospital year is 2024 Skin: Warm, dry, tact no rashes or lesions noted Const Vital Signs: 02/09/25 11:21 02/09/25 11:46 02/09/25 11:51 Temperature 99 F 99 F Temperature Source Temporal Oral Pulse Rate 75 79 Respiratory Rate 21 H 23 H Blood Pressure 84/44 L 73/52 L Blood Pressure Mean 57 59 Pulse Ox 99 94 94 Oxygen Delivery Method Room Air Room Air Room Air Oxygen Flow Rate (L/min) 02/09/25 12:15 02/09/25 12:25 02/09/25 14:00 Temperature 99.1 F 98.9 F Temperature Source Oral Oral Pulse Rate 75 72 67 Respiratory Rate 19 H 16 13 Blood Pressure 82/52 L 82/52 L 85/60 L Blood Pressure Mean 62 62 68 Pulse Ox 94 Oxygen Delivery Method Nasal Cannula Oxygen Flow Rate (L/min) 2 02/09/25 15:00 Temperature 98.9 F Temperature Source Oral Pulse Rate 70 Respiratory Rate 18 Blood Pressure 83/51 L Blood Pressure Mean 61 Pulse Ox Oxygen Delivery Method Oxygen Flow Rate (L/min) MDM MDM MDM Narrative Medical decision making narrative: Patient is a 89-year-old male who presented to the emergency department the chief complaint of generalized weakness and painful urination. On the differential diagnosis includes but limited to UTI, electrolyte abnormality, dehydration, ACS. Once workup is obtained and reviewed he will be reevaluated. Patient will be given a liter of IV fluids as he does have a history of heart failure. Patient CBC reviewed showed no evidence leukocytosis white blood count normal at10.3, hemoglobin 12.4, patient does have macrocytic anemia with MCV of 109.9. Patient INR was 2.1 with a PT of 23.7. Patient sodium is 137, potassium normal at 4.4, creatinine was at his baseline at 1.32 does have underlying chronic kidney disease. Patient's AST and ALT are 39 and 19 respectively. Patient's troponin was 59 and 53 respectively. Patient's EKG reviewed showed atrial fibrillation with a rate of 81 beats per minutes. Patient's urinalysis reviewedshowed 5 leukocyte esterase greater than 100 white cells 2+ bacteria this was sent for culture. Patient was ordered a gram of Rocephin at 1218. Patient's CThead and brain without contrast showed no acute findings chronic changes noted. Patient CT cervical spine reviewed showed degenerative changes cervical spine noacute fracture listhesis. There is sclerosis of C3 C5 vertebrae metastatic deposit should be ruled out. Patient's chest x-ray reviewed by myself by radiology showed a small left pleural effusion with basilar infiltration and/or atelectasis. At this point in time we will discuss case with hospitalist for generalized weakness, UTI. Patient will be given another liter of IV fluids. Discussed case with hospitalist Dr. Luciano who accept the patient for admission. Notified patient and family members at bedside all question concerns answered. They were agreeable with this plan Lab Data Labs: Laboratory Results - last 24 hr 02/09/25 02/09/25 02/09/25 11:35 11:56 13:51 WBC 10.3 RBC 3.43 L Hgb 12.4 L Hct 37.7 L MCV 109.9 H MCH 36.2 H MCHC 32.9 RDW Std Deviation 65.1 H RDW Coeff of Yanet 16.0 H Plt Count 115 L MPV 10.7 Immature Gran % (Auto) 0.400 Neut % (Auto) 80.1 H Lymph % (Auto) 8.9 L Floyd % (Auto) 10.2 H Eos % (Auto) 0.2 Baso % (Auto) 0.2 Absolute Neuts (auto) 8.2 H Absolute Lymphs (auto) 0.92 Nucleated RBC % 0 Anisocytosis RARE PT 23.7 H INR 2.1 APTT 37.3 H Sodium 137 Potassium 4.4 Chloride 102 Carbon Dioxide 26.6 Anion Gap 8 BUN 41 H Creatinine 1.32 H Est GFR (MDRD) Non-Af 52 L BUN/Creatinine Ratio 31.1 H Glucose 143 H Lactic Acid 2.0 Calcium 8.8 Total Bilirubin 1.18 AST 39 H ALT 19 Alkaline Phosphatase 176 H Troponin T High Sens 59 H* D Troponin T Hi Sens 2 Hr 53 H Total Protein 5.6 L Albumin 2.6 L Globulin 3.0 Albumin/Globulin Ratio 0.9 Urine Color Yellow Urine Clarity Cloudy Urine pH 6.0 Ur Specific [place] 1.020 Urine Protein 100 H Urine Glucose (UA) Normal Urine Ketones Negative Urine Occult Blood 250 H Urine Nitrite Negative Urine Bilirubin Negative Urine Urobilinogen Normal Ur Leukocyte Esterase 500 H Urine RBC 0 SEEN Urine WBC >100 SEEN Ur Squamous Epith Cells 0 SEEN Urine Bacteria 2+ Urine Mucus 0 SEEN Radiography Diagnostic Testing: Clinical Impression(s) from Imaging Studies Chest X-Ray 02/09/25 11:29 IMPRESSION: Small left pleural effusion with left basilar infiltration and/or atelectasis. Reading Location: [id number] Brain CT 02/09/25 12:19 IMPRESSION: CHRONIC CHANGES. NO ACUTE FINDINGS. Stable examination. Reading Location: [id number] Cervical Spine CT 02/09/25 12:19 IMPRESSION: DEGENERATIVE CHANGES OF THE CERVICAL SPINE. NO EVIDENCE OF SIGNIFICANT OSSEOUS CENTRAL CANAL OR NEURAL FORAMINAL STENOSIS. Sclerosis of the C3 and C5 vertebrae. Metastatic deposit should be ruled out. Reading Location: [id number] Discharge Plan Triage Chief Complaint: Complaint ED Provider: Mike Gonzalez Dx/Rx/DC Orders Clinical Impression: Generalized weakness, Urinary tract infection, Fall, Dehydration Prescriptions: No Action pravastatin 20 mg tablet 20 mg PO DAILY allopurinol 300 mg tablet 300 mg PO DAILY nitroglycerin 0.4 mg tablet, sublingual 0.4 mg SUBLINGUAL Q5-15M PRN (Reason: chest pain) niacin [Niaspan Extended-Release] 500 mg tablet extended release 24 hr 500 mg PO QHS carvedilol [Coreg] 3.125 mg tablet 3.125 mg PO BID amoxicillin 500 mg tablet 2,000 mg PO DAILY PRN (Reason: DENTIST) Patient Comments: 30-60 minutes prior to dental procedure/ONLY WHEN HE GOES TO DENTIST. Lumigan 0.01 % drops 1 drp OPHTHALMIC QHS Rx Instructions: 1 DROP IN BOTH EYES Centrum Silver Men 300-600-300 mcg tablet 1 tab PO DAILY Simbrinza 1-0.2 % drops,suspension 1 drp OPHTHALMIC BID triamcinolone acetonide 0.025 % cream 1 applic topical BID Patient Comments: APPLY TO RIGHT EAR furosemide [Lasix] 40 mg tablet 40 mg PO BID Rx Instructions: one tablet in the AM and one tablet 4-6 hours later lutein 10 mg tablet 10 mg PO DAILY Rx Instructions: give with meal/snack Eliquis 2.5 mg tablet 2.5 mg PO BID Qty: 60 0RF potassium chloride 20 mEq Tablet,Er Particles/Crystals 20 meq PO BIDCM 30 Days Qty: 60 0RF Primary Care Provider: Tyra Munoz Referrals: Tyra Munoz MD [Primary Care Provider] - Print Language: Somali Disposition Disposition: Acute Care Hospital [facility] What to do if you have Problems For any increased pain, shortness of breath, bleeding, nausea or vomiting, chestpain, or any unexpected problems, contact your Primary Care Provider. Call [facility] ([phone]) or report to the closest Emergency Room. Call 911 if necessary. 02/09/25 1516 <Electronically signed by Mike Gonzalez DO> Cosigner Signature (if applicable): CC: Dr. Tyra Munoz MD ~ Signed [facility] Work Phone: [phone] History and physical note [facility] Medical Records Department [address] [place] [address] H&P Exam - Hospitalist 02/09/25 1537 MR#: [id number] Acct: [id number] Name: VALDO GOMEZ Rep #:[id number] : 1935 89 From: Ariela Luciano MD PCP: Dr. Tyra Munoz MD Status:RE G ER Location: ED HPI - General General Date of Admission: 02/09/25 Date of Service: 02/09/25 Chief Complaint: Generalized weakness HPI Narrative VALDO GOMEZ, is a 89-year-old male history of A-fib on Eliquis, hypertension, CKD, gout, CAD, heart failure who presented [facility] ED 02/09/2025 with generalized weakness to thepoint he was unable to get out of bed. Yesterday around 4 PM he fell because he was so weak but didnot hit his head or lose consciousness. Also complaining of painful urination. Additionally he doesnot have central air and has been very hot. In the ED patient afebrile, heart rate 75 with a blood pressure 84/44, respiratory rate 21with a pulse ox 99% on room air. CBC with white blood cell count of 10.3, hemoglobin 12.4, BMP with BUN of 41 and creatinine of 1.32 which is similar to previous. UAsuspicious for infection. Troponin of 59. Lactic acid within normal limits. CT of the brain with noacute process, cervical CT with sclerosis of C3 and C5 vertebrae with recommendation to rule out metastatic deposit. Chest x-ray with small left pleural effusion with infiltrate versus atelectasis. Given patient's urinary symptoms with UA suspicious for UTI with suspected patient's generalized weakness was secondary to underlying urinary tract infection. Patient given IV fluids and hospitalist contacted for admission. Patient evaluated with family members at bedside. Patient has been somewhat generally weak for the past 2 days, on Thursday he had a temperature of 102 and had chills and sweats and has not been eating very well, fell yesterday due to weakness and today due to worsening weakness he came to the ED, daughter also feels like he cannot really hear them as well either. Patient denies any chest pain or shortness of breath, no abdominal pain, does have burning on urination but other than that, generalized weakness, fever 2 days ago he denies any other new or acute complaints [facility] Medical History (Updated 02/09/25 @ 15:[address] Ariela Luciano MD) Atherosclerosis of coronary artery of [place] without angina pectoris Coronary artery disease DVT (deep venous thrombosis) Gout Hyperlipidemia Hypertension Kidney disease Myocardial infarct Non-smoker Old inferior wall myocardial infarction On home oxygen therapy Home Medications ?Medication ?Instructions ?Recorded ?Last Taken ?Type allopurinol 300 mg tablet 300 mg PO DAILY 09/13/17 History amoxicillin 500 mg tablet 2,000 mg PO DAILY PRN DENTIS T 09/13/17 Unknown History bimatoprost 0.01 % eye drops 1 drp ophthalmic (eye) QH S 09/13/17 12/07/24 History (Clau) carvedilol 3.125 mg tablet (Coreg) 3.125 mg PO BID 02/09/25 History olydmlap-zg-eawih 300 mcg-K 60 1 tab PO DAILY 09/13/17 02/09/25 History mcg-lycop 600 mcg-lutein 300 mcg tablet (Centrum Silver Men) niacin 500 mg tablet,extended 500 mg PO QHS 09/13/17 0 12/06/24 History release 24 hr (Niaspan) nitroglycerin 0.4 mg sublingual 0.4 mg sublingual Q5-1 5M PRN chest 09/13/17 Unknown History tablet pain pravastatin 20 mg tablet 20 mg PO DAILY 09/14/1701/16 History brinzolamide 1 %-brimonidine 0.2 % 1 drp ophthalmic (e ye) BID 02/10/19 Unknown History eye drops,suspension (Simbrinza) apixaban 2.5 mg tablet (Eliquis) 2.5 mg PO BID #60 tab s 12/07/24 02/09/25 Rx lutein 10 mg tablet 10 mg PO DAILY 12/07/2401/16 History potassium chloride 20 mEq 20 meq PO BIDCM 30 days #60 tabs 01/09/25 02/09/25 Rx tablet,extended release(part/cryst) furosemide 40 mg tablet (Lasix) 40 mg PO BID 01/27/25 02/09/25 History triamcinolone acetonide 0.025 % 1 applic topical BID 0 01/27/25 Unknown History topical cream Allergy/AdvReac Type Severity Reaction Status Date / Time SHARON Inhibitors AdvReac Hypotensive Verified 02/09/25 15:09 Family History Mother , AGe 71 Congestive heart failure Sister , Age 66 CAD (coronary artery disease) Breast cancer S/P CABG (coronary artery bypass graft) Surgical History H/O bilateral hip replacements H/O bilateral inguinal hernia repair H/O right coronary artery stent placement (06/13/10) History of coronary artery stent placement Social History household members: spouse housing: house current occupational status: retired Smoking Status: Never smoker ROS ROS Narrative General: Fever 2 days ago HENT: Denies headache, denies stuffy nose, denies sore throat EYES: Denies changes in vision Resp: Denies cough, denies any new shortness of breath Cardiac: Denies chest pain GI: Denies abdominal pain, denies changes in bowel, denies nausea/vomiting, has had poor p.o. intake : Denies changes in urination Extremity: Burning on urination MSK: Generalized weakness Neuro: Denies any numbness/tingling Heme: Denies any new bleeding Skin: Denies rashes Psychiatric: No complaints voiced Vital Signs Vital Signs Vital Signs: 02/09/25 11:21 02/09/25 11:46 02/09/25 11:51 Temperature 99 F 99 F Temperature Source Temporal Oral Pulse Rate 75 79 Respiratory Rate 21 H 23 H Blood Pressure 84/44 L 73/52 L Blood Pressure Mean 57 59 Pulse Ox 99 94 94 Oxygen Delivery Method Room Air Room Air Room Air Oxygen Flow Rate (L/min) 02/09/25 12:15 02/09/25 12:25 02/09/25 14:00 Temperature 99.1 F 98.9 F Temperature Source Oral Oral Pulse Rate 75 72 67 Respiratory Rate 19 H 16 13 Blood Pressure 82/52 L 82/52 L 85/60 L Blood Pressure Mean 62 62 68 Pulse Ox 94 Oxygen Delivery Method Nasal Cannula Oxygen Flow Rate (L/min) 2 02/09/25 15:00 Temperature 98.9 F Temperature Source Oral Pulse Rate 70 Respiratory Rate 18 Blood Pressure 83/51 L Blood Pressure Mean 61 Pulse Ox Oxygen Delivery Method Oxygen Flow Rate (L/min) Physical Exam Narrative General: Alert, answering questions appropriately, no apparent distress HEENT: Atraumatic, normocephalic, does have sunken appearing eyes which is not new Eyes: Anicteric, normal conjunctiva, extraocular movements grossly intact Neck: Supple Respiratory: Overall clear to auscultation bilaterally, normal respiratory effort Cardiovascular: A-fib with regular rate GI: Soft, nontender, nondistended Extremities: No edema Musculoskeletal: Moving all extremities Neuro: No overt focal neurological deficits Skin: No rashes appreciated Psych: Cooperative Results Lab / Micro Data 02/09/25 11:35 02/09/25 11:35 Labs: Laboratory Results - last 24 hr 02/09/25 11:35: WBC 10.3, RBC 3.43 L, Hgb 12.4 L, Hct 37.7 L, MCV 109.9 H, MCH 36.2 H, MCHC 32.9, RDW Std Deviation 65.1 H, RDW Coeff of Yanet 16.0 H, Plt Count 115 L, MPV 10.7, Immature Gran % (Auto) 0.400, Neut % (Auto) 80.1 H, Lymph % (Auto) 8.9 L, Floyd % (Auto) 10.2 H, Eos % (Auto) 0.2, Baso % (Auto) 0.2, Absolute Neuts (auto) 8.2 H, Absolute Lymphs (auto) 0.92, Nucleated RBC % 0, Anisocytosis RARE, PT 23.7 H, INR 2.1, APTT 37.3 H, Sodium 137, Potassium 4.4, Chloride 102, Carbon Dioxide 26.6,Anion Gap 8, BUN 41 H, Creatinine 1.32 H, EstGFR (MDRD) Non-Af 52 L, BUN/Creatinine Ratio 31.1 H, Glucose 143 H, Lactic Acid 2.0, Calcium 8.8, Total Bilirubin 1.18, AST 39 H, ALT 19, Alkaline Phosphat ase 176 H, Troponin T High Sens 59 H* D, Total Protein 5.6 L, Albumin 2.6 L, Globulin 3.0, Albumin/Globulin Ratio 0.9 02/09/25 11:56: Urine Color Yellow, Urine Clarity Cloudy, Urine pH 6.0, Ur Specific [place] 1.020, Urine Protein 100 H, Urine Glucose (UA) Normal, Urine Ketones Negative, Urine Occult Blood 250 H, Urine Nitrite Negative, Urine Bilirubin Negative, Urine Urobilinogen Normal, Ur Leukocyte Esterase 500H, Urine RBC 0 SEEN, Urine WBC >100 SEEN, Ur Squamous Epith Cells 0 SEEN, Urine Bacteria 2+, Urine Mucus 0 SEEN 02/09/25 13:51: Troponin T Hi Sens 2 Hr 53 H Imaging Radiology Impression Chest X-Ray 02/09/25 11:29 IMPRESSION: Small left pleural effusion with left basilar infiltration and/or atelectasis. Reading Location: [id number] Brain CT 02/09/25 12:19 IMPRESSION: CHRONIC CHANGES. NO ACUTE FINDINGS. Stable examination. Reading Location: [facility] Cervical Spine CT 02/09/25 12:19 IMPRESSION: DEGENERATIVE CHANGES OF THE CERVICAL SPINE. NO EVIDENCE OF SIGNIFICANT OSSEOUS CENTRAL CANAL OR NEURAL FORAMINAL STENOSIS. Sclerosis of the C3 and C5 vertebrae. Metastatic deposit should be ruled out. Reading Location: [id number] Assessment & Plan Assessment/Plan (1) UTI (urinary tract infection): PLAN: Plan # Generalized weakness suspect secondary to UTI -UA suspicious for UTI -Urine and blood cultures ordered and pending -Hydrating cautiously with IV fluids given heart failure history # Elevated troponin -No chest pain -Suspect this is secondary to underlying infection and hypotension -Initial troponin 59 with repeat of 53 - Patient to be monitored on telemetry # Hypotension -Suspect due to combination of infection and dehydration given lack of central air with significantheat -Does not meet other criteria though would be consistent with sepsis at this time -Patient receiving second bolus as his blood pressure remained low and on my evaluation blood pressure was 94/62, hence improving -Hold home antihypertensives - Will monitor patient closely in the ICU in the event patient is early sepsis and decompensates # C3 and C5 sclerosis -CT recommended MRI to rule out metastatic deposits -Suspect patient's weakness and falls are due to his UTI and low blood pressure in the cervical spine findings are incidental - Given patient's present clinical condition will defer MRI until patient clinically stable - Due to time constraints unable to discuss this finding and further management with family in the ED, this will ultimately need addressed moving forward # History of heart failure with unclear subtype -Echo last month with EF of 40% with mild to moderate global hypokinesis of the left ventricle, PASP of 46, and moderate mitral valve insufficiency -Daily weights, I's and O's -Holding home carvedilol and Lasix due to presenting problem and blood pressure # History of atrial fibrillation -Continue Eliquis -Holding Coreg due to patient's hypotension #Gout -Continue home allopurinol # History of CAD -With stent placement to RCA in 2009 -Patient on Eliquis and aspirin, will continue -Holding beta-sung due to hypotension # CKD stage III a -Appears to be at baseline -Avoid nephrotoxic agents -Daily BMPs #DVT ppx: Chronically on Eliquis Ariela Luciano MD CODE status: Discussed CODE status at length including difference between FULL code, DNR-CCA, and DNR-CC status. Following discussions about the differences inthese status, requested DNR/DNI. Advanced Care Planning Face to Face Time: 12 minutes. Charges/Coding Multi Select Codes Visit Charges Visit Charges: 01006 Init Hosp L2 Hospitalists' Procedures Procedures: 42844 Advncd Care Plan 30 Min 02/09/25 1546 Cosigner Signature (if applicable): CC: Dr. Tyra Munoz MD; Dr. Ariela Luciano MD~ Signed [facility]06-26-2025 Discharge summary [facility] Medical Records Department [address] [place] [address] Emergency Department Summary 02/09/25 MR#: [id number] Acct: [id number] Name: VALDO GOMEZ Rep #:[id number] : 1935 89 From: Mike Gonzalez DO PCP: Dr. Tyra Munoz MD Status:RE G ER Location: ED HPI History of Present Illness Chief Complaint: Complaint Narrative Narrative: Patient is a 81-year-old male with past medical history of hypertension, hyperlipidemia, chronic kidney disease, atrial fibrillation on Eliquis, heart failure who presented to the emergency department with chief complaint of generalized weakness inability to get up out of bed this morning he felt ex tremely weak he said. He gets yesterday around 4 PM he states that he had a fall because he felt [place] he notes that he fell backwards but denies hitting his head denies passing out losing consciousness. He states that he is complaining of painful urination. Per EMS the house was very hot as theydo nothave central air in the home but daughter at bedside states that there is another house that he could have gone to that has central air however he was refusing he states that this was his whether and he did not believe he needed air conditioning. 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 Hypertension Hyperlipidemia Old inferior wall myocardial infarction Home Medications ?Medication ?Instructions ?Recorded ?Last Taken ?Type allopurinol 300 mg tablet 300 mg PO DAILY 09/13/17 History amoxicillin 500 mg tablet 2,000 mg PO DAILY PRN DENTIS T 09/13/17 Unknown History bimatoprost 0.01 % eye drops 1 drp ophthalmic (eye) QH S 09/13/17 12/07/24 History (Clau) carvedilol 3.125 mg tablet (Coreg) 3.125 mg PO BID 02/09/25 History eudekcao-aw-yzjaa 300 mcg-K 60 1 tab PO DAILY 09/13/17 02/09/25 History mcg-lycop 600 mcg-lutein 300 mcg tablet (Centrum Silver Men) niacin 500 mg tablet,extended 500 mg PO QHS 09/13/17 0 12/06/24 History release 24 hr (Niaspan) nitroglycerin 0.4 mg sublingual 0.4 mg sublingual Q5-1 5M PRN chest 09/13/17 Unknown History tablet pain pravastatin 20 mg tablet 20 mg PO DAILY 09/14/17 06/02/08 History brinzolamide 1 %-brimonidine 0.2 % 1 drp ophthalmic (e ye) BID 02/10/19 Unknown History eye drops,suspension (Simbrinza) apixaban 2.5 mg tablet (Eliquis) 2.5 mg PO BID #60 tab s 12/07/24 02/09/25 Rx lutein 10 mg tablet 10 mg PO DAILY 12/07/24/02/08 History potassium chloride 20 mEq 20 meq PO BIDCM 30 days #60 tabs 01/09/25 02/09/25 Rx tablet,extended release(part/cryst) furosemide 40 mg tablet (Lasix) 40 mg PO BID 01/27/25 02/09/25 History triamcinolone acetonide 0.025 % 1 applic topical BID 0 01/27/25 Unknown History topical cream Allergy/AdvReac Type Severity Reaction Status Date / Time SHARON Inhibitors AdvReac Hypotensive Verified 02/09/25 15:09 Family History Mother , AGe 71 Congestive heart failure Sister , Age 66 CAD (coronary artery disease) Breast cancer S/P CABG (coronary artery bypass graft) Surgical History H/O bilateral inguinal hernia repair H/O bilateral hip replacements H/O right coronary artery stent placement (06/13/10) Social History household members: spouse housing: house current occupational status: retired Smoking Status: Never smoker ROS ROS ED ROS Narrative Constitutional: Denies headache, lightness, dizziness, fevers, chills Eyes: Denies change in vision double vision blurry vision Cardiovascular: Denies chest pain Respiratory: Denies shortness of breath coughing wheezing Abdomen: Denies abdominal pain nausea vomit diarrhea : Complains of painful urination as noted above Neurological: Denies numbness, wheeze, tingling Musculoskeletal: Denies back pain Skin: Denies any rashes or lesions EXAM Physical Exam Narrative Exam Narrative: General: Patient was lying in bed rest comfortably did not appear to be acute distress Head: Atraumatic, normocephalic Eyes: PERRL bilaterally, EOMI blood, no conjunctival injection noted Neck: Soft, supple, trachea midline no tenderness palpation midline cervical spine Cardiovascular: Regular rate and rhythm Respiratory: Clear to auscultation bilaterally Abdomen: Soft, nondistended, no tenderness palpation Extremities: +3/5 strength noted in the bilateral upper and lower extremities, radial pulses +2/4 in the bilateral extremities, no pedal edema on exam Neurological: Patient following commands knew that he was at the hospital year is 2024 Skin: Warm, dry, tact no rashes or lesions noted Const Vital Signs: 02/09/25 11:21 02/09/25 11:46 02/09/25 11:51 Temperature 99 F 99 F Temperature Source Temporal Oral Pulse Rate 75 79 Respiratory Rate 21 H 23 H Blood Pressure 84/44 L 73/52 L Blood Pressure Mean 57 59 Pulse Ox 99 94 94 Oxygen Delivery Method Room Air Room Air Room Air Oxygen Flow Rate (L/min) 02/09/25 12:15 02/09/25 12:25 02/09/25 14:00 Temperature 99.1 F 98.9 F Temperature Source Oral Oral Pulse Rate 75 72 67 Respiratory Rate 19 H 16 13 Blood Pressure 82/52 L 82/52 L 85/60 L Blood Pressure Mean 62 62 68 Pulse Ox 94 Oxygen Delivery Method Nasal Cannula Oxygen Flow Rate (L/min) 2 02/09/25 15:00 Temperature 98.9 F Temperature Source Oral Pulse Rate 70 Respiratory Rate 18 Blood Pressure 83/51 L Blood Pressure Mean 61 Pulse Ox Oxygen Delivery Method Oxygen Flow Rate (L/min) MDM MDM MDM Narrative Medical decision making narrative: Patient is a 89-year-old male who presented to the emergency department the chief complaint of generalized weakness and painful urination. On the differential diagnosis includes but limited to UTI, electrolyte abnormality, dehydration, ACS. Once workup is obtained and reviewed he will be reevaluated. Patient will be given a liter of IV fluids as he does have a history of heart failure. Patient CBC reviewed showed no evidence leukocytosis white blood count normal at10.3, hemoglobin 12.4, patient does have macrocytic anemia with MCV of 109.9. Patient INR was 2.1 with a PT of 23.7. Patient sodium is 137, potassium normal at 4.4, creatinine was at his baseline at 1.32 does have underlying chronic kidney disease. Patient's AST and ALT are 39 and 19 respectively. Patient's troponin was 59 and 53 respectively. Patient's EKG reviewed showed atrial fibrillation with a rate of 81 beatsper minutes. Patient's urinalysis reviewedshowed 5 leukocyte esterase greater than 100 white cells 2+ bacteria this was sent for culture. Patient was ordered a gram of Rocephin at 1218. Patient's CThead and brain without contrast showed no acute findings chronic changes noted. Patient CT cervical spine reviewed showed degenerative changes cervical spine noacute fracture listhesis. There is sclerosis of C3 C5 vertebrae metastatic deposit should be ruled out. Patient's chest x-ray reviewed by myself by radiology showed a small left pleural effusion with basilar infiltration and/or atelectasis. At this point in time we will discuss case with hospitalist for generalized weakness, UTI. Patient will be given another liter of IV fluids. Discussed case with hospitalist Dr. Luciano who accept the patient for admission. Notified patient and family members at bedside all question concerns answered. They were agreeable with this plan Lab Data Labs: Laboratory Results - last 24 hr 02/09/25 02/09/25 02/09/25 11:35 11:56 13:51 WBC 10.3 RBC 3.43 L Hgb 12.4 L Hct 37.7 L MCV 109.9 H MCH 36.2 H MCHC 32.9 RDW Std Deviation 65.1 H RDW Coeff of Yanet 16.0 H Plt Count 115 L MPV 10.7 Immature Gran % (Auto) 0.400 Neut % (Auto) 80.1 H Lymph % (Auto) 8.9 L Floyd % (Auto) 10.2 H Eos % (Auto) 0.2 Baso % (Auto) 0.2 Absolute Neuts (auto) 8.2 H Absolute Lymphs (auto) 0.92 Nucleated RBC % 0 Anisocytosis RARE PT 23.7 H INR 2.1 APTT 37.3 H Sodium 137 Potassium 4.4 Chloride 102 Carbon Dioxide 26.6 Anion Gap 8 BUN 41 H Creatinine 1.32 H Est GFR (MDRD) Non-Af 52 L BUN/Creatinine Ratio 31.1 H Glucose 143 H Lactic Acid 2.0 Calcium 8.8 Total Bilirubin 1.18 AST 39 H ALT 19 Alkaline Phosphatase 176 H Troponin T High Sens 59 H* D Troponin T Hi Sens 2 Hr 53 H Total Protein 5.6 L Albumin 2.6 L Globulin 3.0 Albumin/Globulin Ratio 0.9 Urine Color Yellow Urine Clarity Cloudy Urine pH 6.0 Ur Specific [place] 1.020 Urine Protein 100 H Urine Glucose (UA) Normal Urine Ketones Negative Urine Occult Blood 250 H Urine Nitrite Negative Urine Bilirubin Negative Urine Urobilinogen Normal Ur Leukocyte Esterase 500 H Urine RBC 0 SEEN Urine WBC >100 SEEN Ur Squamous Epith Cells 0 SEEN Urine Bacteria 2+ Urine Mucus 0 SEEN Radiography Diagnostic Testing: Clinical Impression(s) from Imaging Studies Chest X-Ray 02/09/25 11:29 IMPRESSION: Small left pleural effusion with left basilar infiltration and/or atelectasis. Reading Location: [id number] Brain CT 02/09/25 12:19 IMPRESSION: CHRONIC CHANGES. NO ACUTE FINDINGS. Stable examination. Reading Location: [id number] Cervical Spine CT 02/09/25 12:19 IMPRESSION: DEGENERATIVE CHANGES OF THE CERVICAL SPINE. NO EVIDENCE OF SIGNIFICANT OSSEOUS CENTRAL CANAL OR NEURAL FORAMINAL STENOSIS. Sclerosis of the C3 and C5 vertebrae. Metastatic deposit should be ruled out. Reading Location: [id number] Discharge Plan Triage Chief Complaint: Complaint ED Provider: Mike Gonzalez Dx/Rx/DC Orders Clinical Impression: Generalized weakness, Urinary tract infection, Fall, Dehydration Prescriptions: No Action pravastatin 20 mg tablet 20 mg PO DAILY allopurinol 300 mg tablet 300 mg PO DAILY nitroglycerin 0.4 mg tablet, sublingual 0.4 mg SUBLINGUAL Q5-15M PRN (Reason: chest pain) niacin [Niaspan Extended-Release] 500 mg tablet extended release 24 hr 500 mg PO QHS carvedilol [Coreg] 3.125 mg tablet 3.125 mg PO BID amoxicillin 500 mg tablet 2,000 mg PO DAILY PRN (Reason: DENTIST) Patient Comments: 30-60 minutes prior to dental procedure/ONLY WHEN HE GOES TO DENTIST. Lumigan 0.01 % drops 1 drp OPHTHALMIC QHS Rx Instructions: 1 DROP IN BOTH EYES Centrum Silver Men 300-600-300 mcg tablet 1 tab PO DAILY Simbrinza 1-0.2 % drops,suspension 1 drp OPHTHALMIC BID triamcinolone acetonide 0.025 % cream 1 applic topical BID Patient Comments: APPLY TO RIGHT EAR furosemide [Lasix] 40 mg tablet 40 mg PO BID Rx Instructions: one tablet in the AM and one tablet 4-6 hours later lutein 10 mg tablet 10 mg PO DAILY Rx Instructions: give with meal/snack Eliquis 2.5 mg tablet 2.5 mg PO BID Qty: 60 0RF potassium chloride 20 mEq Tablet,Er Particles/Crystals 20 meq PO BIDCM 30 Days Qty: 60 0RF Primary Care Provider: Tyra Munoz Referrals: Tyra Munoz MD [Primary Care Provider] - Print Language: Somali Disposition Disposition: Acute Care Hospital [facility] What to do if you have Problems For any increased pain, shortness of breath, bleeding, nausea or vomiting, chestpain, or any unexpected problems, contact your Primary Care Provider. Call [facility] ([phone]) or report tothe closest Emergency Room. Call 911 if necessary. 02/09/25 1516 Cosigner Signature (if applicable): CC: Dr. Tyra Munoz MD ~ Signed [facility]06-26-2025 Radiology Diagnostic study note [facility] Imaging Services [address], [place] [address] Chest PA and Lateral MR#: [id number] Acct: [id number] Name: VALDO GOMEZ Rep #: [id number] 20 : 1935 M 89 From: Jatinder Chanel MD PCP: Dr. Tyra Munoz MD Status: RE G ER Study:Chest PA and Lateral Date of Exam: 02/09/25 Exam# [id number] Ordering Dr: Chio Gonzalez DO PROCEDURE: CHEST PA AND LATERAL 02/09/2025 REASON FOR EXAM: WEAKNESS TECHNIQUE: CHEST PA AND LATERAL COMPARISON: Prior study dated January 06, 2025. FINDINGS: Hardware: EKG electrodes are seen. Heart: Mild cardiomegaly Mediastinum: Calcification of the aortic arch. Lungs: Infiltration at the left lung base with small pleural effusion. Elevation of the right hemidiaphragm. Bones: Degenerative changes are identified within the thoracic spine. RAD/Chest PA and Lateral IMPRESSION: Small left pleural effusion with left basilar infiltration and/or atelectasis. Reading Location: [id number] CC: Dr. Tyra Muonz MD; Dr. Mike Gonzalez DO ~ [facility] Room Attendant: Signed [facility]06-26-2025 Radiology Diagnostic study note [facility] Imaging Services [address] [place], [place] [address] Spine Cervical without Contras MR#: [id number] Acct: [id number] Name: VALDO GOMEZ Rep #: [id number] 17 : 1935 M 89 From: Jatinder Chanel MD PCP: Dr. Tyra Munoz MD Status: RE G ER Study:Spine Cervical without Contras Date of Exam: 02/09/25 Exam# [id number] Ordering Dr: Chio Gonzalez DO PROCEDURE: SPINE CERVICAL WITHOUT CONTRAS 02/09/2025 REASON FOR EXAM: FALL TECHNIQUE: SPINE CERVICAL WITHOUT CONTRAS Coronal and Sagittal reconstruction series were provided. CONTRAST: None One or more dose reduction techniques were used (e.g., Automated exposure control, adjustment of the mA and/or kV according to patient size, use of iterative reconstruction technique. RADIATION DOSE SUMMARY: CTDlvol: 22.83 mGy DLP: 440.46 mGycm COMPARISON: None FINDINGS: Alignment: Straightening of the normal cervical lordosis. Vertebrae: Sclerotic foci seen in the body of the C3 and C5 vertebrae. Metastatic deposit should beruled out. Soft Tissues: Calcification of the carotid bifurcations. Other: C1-2: Degenerative changes of the atlantoaxial joint. C2-3: Mild degree of disc space narrowing. Uncovertebral arthrosis. No significant stenosis seen. C3-4: Sclerosis of the C3 vertebrae as described. Marked degree of disc space narrowing and spondylosis. No significant stenosis seen. C4-5: Marked degree of disc space narrowing. Mild spondylosis. Uncovertebral arthrosis. No significant stenosis seen. C5-6: Sclerotic focus within the body of the C5 vertebrae. Marked degree of disc space narrowing. Uncovertebral arthrosis and bilateral neural foraminal stenosis. Mild degree of bilateral neural foraminal stenosis. C6-7: Marked degree of disc space narrowing. Uncovertebral arthrosis. No significant stenosis seen. C7-T1: Marked degree of disc space narrowing and spondylosis. CT/Spine Cervical without Contras IMPRESSION: DEGENERATIVE CHANGES OF THE CERVICAL SPINE. NO EVIDENCE OF SIGNIFICANT OSSEOUS CENTRAL CANAL OR NEURAL FORAMINAL STENOSIS. Sclerosis of the C3 and C5 vertebrae. Metastatic deposit should be ruled out. Reading Location: [id number] CC: Dr. Tyra Munoz MD; Dr. Mike Gonzalez DO ~ [facility] Room Attendant: Signed [facility]06-26-2025 Radiology Diagnostic study note [facility] Imaging Services [address], [place] [address] Brain/Head without Contrast MR#: [id number] Acct: [id number] Name: VALDO GOMEZ Rep #: [id number] 16 : 1935 M 89 From: Jatinder Chanel MD PCP: Dr. Tyra Munoz MD Status: RE G ER Study:Brain/Head without Contrast Date of Exa m: 02/09/25 Exam# [id number] Ordering Dr: Chio Gonzalez DO PROCEDURE: BRAIN/HEAD WITHOUT CONTRAST 02/09/2025 REASON FOR EXAM: FALL TECHNIQUE: BRAIN/HEAD WITHOUT CONTRAST Coronal and Sagittal reconstruction series were provided. One or more dose reduction techniques were used (e.g., Automated exposure control, adjustment of the mA and/or kV according to patient size, use of iterative reconstruction technique. RADIATION DOSE SUMMARY: CTDlvol: 44.99 mGy DLP: 812.98 mGycm COMPARISON: Prior study dated January 06, 2025. FINDINGS: Brain: Low density in the periventricular white matter suggests mild chronic small vessel ischemic changes. CSF Spaces: Mild generalized cerebral atrophy Sinuses/Mastoids: Stable opacification of the left maxillary sinus with hyperdense contents suggestive of chronic left maxillary sinusitis. Bones: No fracture. CT/Brain/Head without Contrast IMPRESSION: CHRONIC CHANGES. NO ACUTE FINDINGS. Stable examination. Reading Location: [id number] CC: Dr. Tyra Munoz MD; Dr. Mike Gonzalez DO ~ [facility] Room Attendant: Signed [facility]06-26-2025 Telephone encounter Note* Telephone Encounter - Radha Treadwell RN - 02/09/2025 10:29 AM EDT Pt's daughter called in and reports Pt is very fatigued and has a loss of appetite. She states his urine doesn't look good and wanted us to put in to have a urine sample done on him. Pt's comes in and tells daughter that Pt isn't able to walk. I let daughter know that if Pt was previously ableto walk and now isn't able to she needs to call the squad and have him taken to the ER. SEVERE weakness (i.e., unable to walk or barely able to walk, requires support) AND [2] new-onset or getting worse Reason: Severe weakness, acute. R/O: anemia, cardiac problem, serious infection, volume depletion, metabolic abnormality. Yes Call EMS 911 Now Care Advice: 1: CALL EMS 911 NOW: * Immediate medical attention is needed. You need to hang up and call 911 (or an ambulance). * Triager Discretion: I'll call you back in a few minutes to be sure you were able to reach them. 2: BRING MEDICINES: * Bring a list of your current medicines when you go to the Emergency Department (ER). * Bring the pill bottles too. This will help the doctor (or IT TECHNICAL ARCHITECT/PA) to make certain you are taking the right medicines and the right dose. 3: CARE ADVICE given per Weakness (Generalized) and Fatigue (Adult) guideline. No She repots they will call the squad to come get her father. Radha Treadwell RN [facility]06-26-2025 Miscellaneous Notes* Telephone Encounter - Radha Treadwell RN - 02/09/2025 10:29 AM EDT Pt's daughter called in and reports Pt is very fatigued and has a loss of appetite. She states his urine doesn't look good and wanted us to put in to have a urine sample done on him. Pt's comes in and tells daughter that Pt isn't able to walk. I let daughter know that if Pt was previously ableto walk and now isn't able to she needs to call the squad and have him taken to the ER. SEVERE weakness (i.e., unable to walk or barely able to walk, requires support) AND [2] new-onset or getting worse Reason: Severe weakness, acute. R/O: anemia, cardiac problem, serious infection, volume depletion, metabolic abnormality. Yes Call EMS 911 Now Care Advice: 1: CALL EMS 911 NOW: * Immediate medical attention is needed. You need to hang up and call 911 (or an ambulance). * Triager Discretion: I'll call you back in a few minutes to be sure you were able to reach them. 2: BRING MEDICINES: * Bring a list of your current medicines when you go to the Emergency Department (ER). * Bring the pill bottles too. This will help the doctor (or IT TECHNICAL ARCHITECT/PA) to make certain you are taking the right medicines and the right dose. 3: CARE ADVICE given per Weakness (Generalized) and Fatigue (Adult) guideline. No She repots they will call the squad to come get her father. Radha Treadwell, RN documented in [facility] Instructions* Patient Instructions* Tyra Munoz MD - 02/03/2025 2:52 PM EDT Put Desitin Cream on sores on buttocks documented in this encounterC[facility] History of Present illness Narrative* Tyra Munoz MD - 02/03/2025 2:20 PM EDT Chief Complaint Patient presents with: Follow Up: 2-3 weeks HPI Valdo Gomez is a 89 year old male who presents here today for 2-3 week follow up. CHF/Edema/SOB/A-fib: Follows with [facility]. Taking Eliquis 2.5 mg 1 pill BID, Potassium 20 mEq BID and Lasix 40 mg 2 pills AM and 1 pill in PM. He is monitoring his weight. Is on O2 at 3 Liters. He is down 40 lbs. The swelling in the ankles is down. He feels his breathing is doing ok, only using Oxygen when states his toes are turning blue. Pt has not been checking his BP at home or been able to check his pulse ox at home. He has a hard time getting up at home by himself. Was given order last visit for seat lift mechanism to help him. Has a bed sore on his buttocks that is the size of the size of a dime for 3-4 weeks. Not getting any bigger but not healing. Has tried putting triple antibiotic ointment with pain relief on it, diclofenac sodium gel 1%, Heat lamp, and Cortizone 10, also Triamcinolone Acetonide cream. Past medical history, appointments, medications, allergies reviewed. Previous Medical History PAST MEDICAL HISTORY Diagnosis Date Arthropathy, unspecified, site unspecified CAD (coronary artery disease) Essential hypertension, benign History of recurrent deep vein thrombosis (DVT) 2002 Obesity, unspecified Other premature beats Unspecified hypertensive heart disease Previous Surgical History PAST SURGICAL HISTORY Procedure Laterality Date ARTHRP ACETBLR/PROX FEM PROSTC AGRFT/ALGRFT 02/16 L side ARTHRP ACETBLR/PROX FEM PROSTC AGRFT/ALGRFT 1987 R side CATARACT EXTRACTION HX Bilateral 2014 lens implants PAST SURGICAL HISTORY OF N/A 05/20/2018 Resection Bladder Tumor Transurethral PERC TRANSL COR ANGIO 06/13/2010 Percutaneous Transluminal Coronary Angio Stent REVJ TOT HIP ARTHRP BT W/WO AGRFT/ALGRFT 07/19 R side RPR 1ST INGUN HRNA AGE 5 YRS/> REDUCIBLE 1996 R side RPR 1ST INGUN HRNA AGE 5 YRS/> REDUCIBLE 08/18 L side TONSILLECTOMY HX age 8 Family History No family history on file. Patient Allergies ALLERGIES Allergen Reactions Sharon Inhibitors Other: See Comments Severe hypotension Vioxx [Rofecoxib] GI Upset Current Medications Current Outpatient Medications on File Prior to Visit Medication Sig triamcinolone (KENALOG) 0.025 % cream Apply to affected area two times a day. Right ear. potassium chloride ER (KLOR-CON M20) 20 mEq tablet Take 1 tablet by mouth two times a day. furosemide (LASIX) 40 mg tablet Take 1 tablet by mouth three times a day. Take 2 tablets in the am and 1 in the pm. ELIQUIS 2.5 mg tab(s) Take 1 tablet by mouth every 12 hours. nitroglycerin sublingual (NITROSTAT) 0.4 mg SL tablet Dissolve 1 tablet under the tongue as needed.DISSOLVE ON TONGUE FOR CHEST PAIN. IF NO PAIN RELIEF, CALL 911 Amoxicillin 500 mg tablet Take 6 tablets one hour before the dentist and 2 tablets six hours afterward. allopurinol (ZYLOPRIM) 300 mg tablet Take 1 tablet by mouth once daily. pravastatin (PRAVACHOL) 20 mg tablet Take 1 tablet by mouth once daily. carvedilol (COREG) 3.125 mg tablet Take 1 tablet by mouth two times a day. brinzolamide-brimonidine 1%-0.2 % Ophth Susp Use 1 Drop in both eyes two times a day. bimatoprost (LUMIGAN) 0.01 % drop ophthalmic drops Use 1 Drop in both eyes daily at bedtime. Lutein 10 mg tab Take 10 mg by mouth once daily. multivitamin tablet Take 1 tablet by mouth once daily. niacin sustained release 500 mg tablet Take 1 tablet by mouth daily at bedtime. No current facility-administered medications on file prior to visit. Social History Social History Tobacco Use Smoking status: Never Smokeless tobacco: Never Vaping Use Vaping status: Never Used Substance Use Topics Alcohol use: No Drug use: No EXAM: BP 102/68 Pulse 64 Resp 14 Wt 70.3 kg (155 lb) SpO2 92% BMI 22.89 kg/m General Appearance: Well appearing, alert, in no acute distress, well-hydrated, well nourished. andWheelchair. Skin: two superficial skin ulcerations on mid upper buttock. Lungs: Lungs clear to auscultation. No wheezing, rhonchi, rales.. Heart: irregular, no edema. Health Maintenance List DTaP,Tdap,Td Vaccine(2 - Td or Tdap) due on 09/02/2021 Medicare Advantage Annual Wellness Visit due on 08/17/2024 Covid-19 Vaccine( season) due on 12/12/2024 RSV Vaccine(1 - 1-dose 75+ series) due on 05/16/2025 Depression Screening due on 05/16/2025 Anxiety Screening due on 05/16/2025 LDL Cholesterol due on 11/02/2025 Diabetes Screening due on 01/20/2028 Influenza Vaccine Completed Advance Directive Discussion Completed Shingrix Vaccine Completed Pneumococcal Vaccine: 50+ Completed Data reviewed Appointment on 01/19/2025 Component Date Value Protein, Total 01/19/2025 6.2 (L) Albumin 01/19/2025 3.0 (L) Calcium, Total 01/19/2025 9.0 Bilirubin, Total 01/19/2025 1.3 Alkaline Phosphatase 01/19/2025 213 (H) AST 01/19/2025 38 ALT 01/19/2025 18 Glucose 01/19/2025 102 (H) BUN 01/19/2025 30 (H) Creatinine 01/19/2025 1.33 (H) Sodium 01/19/2025 137 Potassium 01/19/2025 4.4 Chloride 01/19/2025 99 CO2 01/19/2025 26 Anion Gap 01/19/2025 12 Estimated Glomerular Delvin* 01/19/2025 51 (L) WBC 01/19/2025 3.88 RBC 01/19/2025 3.95 (L) Hemoglobin 01/19/2025 14.1 Hematocrit 01/19/2025 43.3 MCV 01/19/2025 109.6 (H) MCH 01/19/2025 35.7 (H) MCHC 01/19/2025 32.6 RDW-CV 01/19/2025 15.5 (H) Platelet Count 01/19/2025 119 (L) MPV 01/19/2025 11.1 Absolute nRBC 01/19/2025 <0.01 Office Visit on 12/07/2024 Component Date Value Ventricular Rate 12/07/2024 72 QRS Duration 12/07/2024 152 QT Interval 12/07/2024 454 QTC Calculation (Bazett) 12/07/2024 497 Calculated R Kent 12/07/2024 203 Calculated T Kent 12/07/2024 -19 Ventricular Rate 12/07/2024 71 QRS Duration 12/07/2024 152 QT Interval 12/07/2024 446 QTC Calculation (Bazett) 12/07/2024 484 Calculated R Kent 12/07/2024 221 Calculated T Kent 12/07/2024 -10 ASSESSMENT/PLAN: 1. Acute congestive heart failure, unspecified heart failure type (HCC) - ICD9: 428.0, ICD10: I50.9(primary diagnosis) Improving - Continue current medications; lasix twice daily 40 mg Check labs next week Has Cardiology follow up in 2 weeks 2. Atrial fibrillation, unspecified type (HCC) - ICD9: 427.31, ICD10: I48.91 Continue current medications. 3. Essential hypertension, benign - ICD9: 401.1, ICD10: I10 - Controlled - Continue current medications - Recommend home blood pressure monitoring, to bring results to next visit - Encouraged sodium restriction, DASH or Mediterranean diet - Recommend regular aerobic exercise 4. Stage 3 chronic kidney disease, unspecified whether stage 3a or 3b CKD (HCC) - ICD9: 585.3, ICD10: N18.30 - eGFR: 51 Stable Monitor with labs 5. Skin ulcer, limited to breakdown of skin (HCC) - ICD9: 707.9, ICD10: L98.491 Desitin cream, avoid prolonged pressure Follow up in 1 month I agree with the Chief Complaint, ROS, and Past Histories independently gathered by the clinical support director and the remaining scribed note accurately describes my personal service to the patient. Medical Decision Making: Problems: Moderate: 2+ stable chronic illnesses Risk: Moderate: Drug management Medical Decision Making Level: 4 - Moderate Tyra Munoz MD The documentation for this note was completed by Marilin Olsen MA acting as scribe for Tyra Munoz MD. February 03, 2025 2:30 PM. Marilin Olsen MA documented in this encounterC[facility]06-20-2025 NoteHNO ID: [id number] Author: TYRA MUNOZ MD Service: ? Author Type: Physician Type: Progress Notes Filed: 02/03/2025 17:35 Note Text: Chief Complaint Patient presents with: Follow Up: 2-3 weeks HPI Valdo Gomez is a 89 year old male who presents here today for 2-3 week follow up. CHF/Edema/SOB/A-fib: Follows with [facility]. Taking Eliquis 2.5 mg 1 pill BID, Potassium 20 mEq BID and Lasix 40 mg 2 pills AM and 1 pill in PM. He is monitoring his weight. Is on O2 at 3 Liters. He is down 40 lbs. The swelling in the ankles is down. He feels his breathing is doing ok, only using Oxygen when states his toes are turning blue. Pt has not been checking his BP at home or been able to check his pulse ox at home. He has a hard time getting up at home by himself. Was given order last visit for seat lift mechanism to help him. Has a bed sore on his buttocks that is the size of the size of a dime for 3-4 weeks. Not getting any bigger but not healing. Has tried putting triple antibiotic ointment with pain relief on it, diclofenac sodium gel 1%, Heat lamp, and Cortizone 10, also Triamcinolone Acetonide cream. Past medical history, appointments, medications, allergies reviewed. Previous Medical History PAST MEDICAL HISTORY Diagnosis Date Arthropathy, unspecified, site unspecified CAD (coronary artery disease) Essential hypertension, benign History of recurrent deep vein thrombosis (DVT) 2002 Obesity, unspecified Other premature beats Unspecified hypertensive heart disease Previous Surgical History PAST SURGICAL HISTORY Procedure Laterality Date ARTHRP ACETBLR/PROX FEM PROSTC AGRFT/ALGRFT 02/16 L side ARTHRP ACETBLR/PROX FEM PROSTC AGRFT/ALGRFT 1987 R side CATARACT EXTRACTION HX Bilateral 2014 lens implants PAST SURGICAL HISTORY OF N/A 05/20/2018 Resection Bladder Tumor Transurethral PERC TRANSL COR ANGIO 06/13/2010 Percutaneous Transluminal Coronary Angio Stent REVJ TOT HIP ARTHRP BTH W/WO AGRFT/ALGRFT 07/19 R side RPR 1ST INGUN HRNA AGE 5 YRS/> REDUCIBLE 1996 R side RPR 1ST INGUN HRNA AGE 5 YRS/> REDUCIBLE 08/18 L side TONSILLECTOMY HX age 8 Family History No family history on file. Patient Allergies ALLERGIES Allergen Reactions Sharon Inhibitors Other: See Comments Severe hypotension Vioxx [Rofecoxib] GI Upset Current Medications Current Outpatient Medications on File Prior to Visit Medication Sig triamcinolone (KENALOG) 0.025 % cream Apply to affected area two times a day. Right ear. potassium chloride ER (KLOR-CON M20) 20 mEq tablet Take 1 tablet by mouth two times a day. furosemide (LASIX) 40 mg tablet Take 1 tablet by mouth three times a day. Take 2 tablets in the am and 1 in the pm. ELIQUIS 2.5 mg tab(s) Take 1 tablet by mouth every 12 hours. nitroglycerin sublingual (NITROSTAT) 0.4 mg SL tablet Dissolve 1 tablet under the tongue as needed. DISSOLVE ON TONGUE FOR CHEST PAIN. IF NO PAIN RELIEF, CALL 911 Amoxicillin 500 mg tablet Take 6 tablets one hour before the dentist and 2 tablets six hours afterward. allopurinol (ZYLOPRIM) 300 mg tablet Take 1 tablet by mouth once daily. pravastatin (PRAVACHOL) 20 mg tablet Take 1 tablet by mouth once daily. carvedilol (COREG) 3.125 mg tablet Take 1 tablet by mouth two times a day. brinzolamide-brimonidine 1%-0.2 % Ophth Susp Use 1 Drop in both eyes two times a day. bimatoprost (LUMIGAN) 0.01 % drop ophthalmic drops Use 1 Drop in both eyes daily at bedtime. Lutein 10 mg tab Take 10 mg by mouth once daily. multivitamin tablet Take 1 tablet by mouth once daily. niacin sustained release 500 mg tablet Take 1 tablet by mouth daily at bedtime. No current facility-administered medications on file prior to visit. Social History Social History Tobacco Use Smoking status: Never Smokeless tobacco: Never Vaping Use Vaping status: Never Used Substance Use Topics Alcohol use: No Drug use: No EXAM: BP 102/68 Pulse 64 Resp 14 Wt 70.3 kg (155 lb) SpO2 92% BMI 22.89 kg/m? General Appearance: Well appearing, alert, in no acute distress, well-hydrated, well nourished. and Wheelchair. Skin: two superficial skin ulcerations on mid upper buttock. Lungs: Lungs clear to auscultation. No wheezing, rhonchi, rales.. Heart: irregular, no edema. Health Maintenance List DTaP,Tdap,Td Vaccine(2 - Td or Tdap) due on 09/02/2021 Medicare Advantage Annual Wellness Visit due on 08/17/2024 Covid-19 Vaccine( season) due on 12/12/2024 RSV Vaccine(1 - 1-dose 75+ series) due on 05/16/2025 Depression Screening due on 05/16/2025 Anxiety Screening due on 05/16/2025 LDL Cholesterol due on 11/02/2025 Diabetes Screening due on 01/20/2028 Influenza Vaccine Completed Advance Directive Discussion Completed Shingrix Vaccine Completed Pneumococcal Vaccine: 50+ Completed Data reviewed Appointment on 01/19/2025 Component Date Value Protein, Total (more content not included)...[facility] 01-26-2025 Telephone encounter Note* Telephone Encounter - Marilin Olsen MA - 01/26/2025 11:55 AM EDT Pt daughter notified and voiced understanding. Also notified her of this via Needhart. Marilin Olsen MA [facility]06-12-2025 Miscellaneous Notes* Telephone Encounter - Marilin Olsen MA - 01/26/2025 11:55 AM EDT Pt daughter notified and voiced understanding. Also notified her of this via Needhart. Marilin Olsen MA * Telephone Encounter - Marilin Olsen MA - 01/24/2025 2:28 PM EDT Message left for pt to call back for results. Marilin Olsen MA * Telephone Encounter - Marilin Olsen MA - 01/23/2025 12:51 PM EDT Message left for pt to call back for results. Marilin Olsen MA * Telephone Encounter - Tyra Munoz MD - 01/20/2025 4:51 PM EDT Please notify patient that his blood work looks OK; kidney function test is just slightly high, so stay on the same dose of lasix for now and we will recheck labs in 2 weeks Tyra Munoz MD [facility] Evaluation note* Diagnosis Essential hypertension, benign- Primary Stage 3 chronic kidney disease, unspecified whether stage 3a or 3b CKD (HCC) Acute congestive heart failure, unspecified heart failure type (HCC) documented in this encounter [facility]06-10-2025 Telephone encounter Note* Telephone Encounter - Jody Corral - 01/24/2025 4:11 PM EDT Daughter contacted office for status update on medication being sent to pharmacy. PSS informed her that the prescription was sent with confirmation receipt. Daughter will follow up with pharmacy. [facility]06-10-2025 Miscellaneous Notes* Telephone Encounter - Jody Corral - 01/24/2025 4:11 PM EDT Daughter contacted office for status update on medication being sent to pharmacy. PSS informed her that the prescription was sent with confirmation receipt. Daughter will follow up with pharmacy. * Telephone Encounter - Tyra Munoz MD - 01/24/2025 2:33 PM EDT OK to refill as ordered Tyra Munoz MD * Telephone Encounter - Deborah Vail LPN - 01/24/2025 1:53 PM EDT Please call daughter when rx has been sent to pharmacy. Deborah Vail LPN * Telephone Encounter - Deborah Vail LPN - 01/24/2025 1:50 PM EDT Prescription Refill Information The patient has been identified by name and date of : Yes Caregiver verified no other encounters exist for this prescription request: Yes Caregiver confirmed with patient/requestor that no other refills are due, in the near future, with this provider at this time: Yes The last office visit in the department: 12/27/24 Does the patient have a future office visit with this provider/department: Yes 02/03/25 Requested Prescriptions Pending Prescriptions Disp Refills triamcinolone (KENALOG) 0.025 % cream 30 g 2 Sig: Apply to affected area two times a day. Right ear. Deborah Vail LPN January 24, 2025 1:52 PM documented in [facility] Telephone encounter Note * Telephone Encounter - Tyra Munoz MD - 01/24/2025 2:33 PM EDT OK to refill as ordered Tyra Munoz MD [facility]06-10-2025 Telephone encounter Note* Telephone Encounter - Marilin Olsen MA - 01/24/2025 2:28 PM EDT Message left for pt to call back for results. Marilin Olsen MA [facility]06-10-2025 Telephone encounter Note* Telephone Encounter - Deborah Vail LPN - 01/24/2025 1:53 PM EDT Please call daughter when rx has been sent to pharmacy. Deborah Vail LPN [facility]06-10-2025 Telephone encounter Note* Telephone Encounter - Deborah Vail LPN - 01/24/2025 1:50 PM EDT Prescription Refill Information The patient has been identified by name and date of : Yes Caregiver verified no other encounters exist for this prescription request: Yes Caregiver confirmed with patient/requestor that no other refills are due, in the near future, with this provider at this time: Yes The last office visit in the department: 12/27/24 Does the patient have a future office visit with this provider/department: Yes 02/03/25 Requested Prescriptions Pending Prescriptions Disp Refills triamcinolone (KENALOG) 0.025 % cream 30 g 2 Sig: Apply to affected area two times a day. Right ear. Deborah Vail LPN January 24, 2025 1:52 PM [facility]06-09-2025 Telephone encounter Note* Telephone Encounter - Marilin Olsen MA - 01/23/2025 12:51 PM EDT Message left for pt to call back for results. Marilin Olsen MA [facility]06-06-2025 Telephone encounter Note* Telephone Encounter - Tyra Munoz MD - 01/20/2025 4:51 PM EDT Please notify patient that his blood work looks OK; kidney function test is just slightly high, so stay on the same dose of lasix for now and we will recheck labs in 2 weeks Tyra Munoz MD [facility]06-05-2025 History of Present illness Narrative* Tyra Munoz MD - 01/19/2025 11:20 AM EDT Chief Complaint Patient presents with: Follow Up HPI Valdo Gomez is a 89 year old male who presents here today for 2 week follow up. Since last visit pt was admitted into [facility] for hypoxia and a-fib. Was d/c on 01/09/25. Has not followed up with Cardiology since his admission. EF 40 % onecho. CHF/Edema/SOB/A-fib: Follows with [facility] with most recent on 01/06/25, when he was admitted. Is taking Eliquis 2.5 mg 1 pill BID. Pt advised at the ED to increase Lasix 40 mg to 2 tabs inthe am and 1 pm. Potassium Chloride 20 mEq bid was added. Weighing at home daily, today's weight was 174 lbs. Now on O2, 3L. Needs assistance with getting up at home. Requiring assistance with activities of daily living. Past medical history, appointments, medications, allergies reviewed. Previous Medical History PAST MEDICAL HISTORY Diagnosis Date Arthropathy, unspecified, site unspecified CAD (coronary artery disease) Essential hypertension, benign History of recurrent deep vein thrombosis (DVT) 2002 Obesity, unspecified Other premature beats Unspecified hypertensive heart disease Previous Surgical History PAST SURGICAL HISTORY Procedure Laterality Date ARTHRP ACETBLR/PROX FEM PROSTC AGRFT/ALGRFT 02/16 L side ARTHRP ACETBLR/PROX FEM PROSTC AGRFT/ALGRFT 1987 R side CATARACT EXTRACTION HX Bilateral 2013 lens implants PAST SURGICAL HISTORY OF N/A 05/20/2018 Resection Bladder Tumor Transurethral PERC TRANSL COR ANGIO 06/13/2010 Percutaneous Transluminal Coronary Angio Stent REVJ TOT HIP ARTHRP BTH W/WO AGRFT/ALGRFT 07/19 R side RPR 1ST INGUN HRNA AGE 5 YRS/> REDUCIBLE 1996 R side RPR 1ST INGUN HRNA AGE 5 YRS/> REDUCIBLE 08/18 L side TONSILLECTOMY HX age 8 Family History No family history on file. Patient Allergies ALLERGIES Allergen Reactions Sharon Inhibitors Other: See Comments Severe hypotension Vioxx [Rofecoxib] GI Upset Current Medications Current Outpatient Medications on File Prior to Visit Medication Sig furosemide (LASIX) 40 mg tablet Take 1 tablet by mouth once daily. ELIQUIS 2.5 mg tab(s) Take 1 tablet by mouth every 12 hours. furosemide (LASIX) 40 mg tablet Take 2 tablets by mouth once daily. nitroglycerin sublingual (NITROSTAT) 0.4 mg SL tablet Dissolve 1 tablet under the tongue as needed.DISSOLVE ON TONGUE FOR CHEST PAIN. IF NO PAIN RELIEF, CALL 911 Amoxicillin 500 mg tablet Take 6 tablets one hour before the dentist and 2 tablets six hours afterward. allopurinol (ZYLOPRIM) 300 mg tablet Take 1 tablet by mouth once daily. pravastatin (PRAVACHOL) 20 mg tablet Take 1 tablet by mouth once daily. carvedilol (COREG) 3.125 mg tablet Take 1 tablet by mouth two times a day. brinzolamide-brimonidine 1%-0.2 % Ophth Susp Use 1 Drop in both eyes two times a day. triamcinolone (KENALOG) 0.025 % cream Apply to affected area two times a day. Right ear. bimatoprost (LUMIGAN) 0.01 % drop ophthalmic drops Use 1 Drop in both eyes daily at bedtime. Lutein 10 mg tab Take 10 mg by mouth once daily. multivitamin tablet Take 1 tablet by mouth once daily. niacin sustained release 500 mg tablet Take 1 tablet by mouth daily at bedtime. No current facility-administered medications on file prior to visit. Social History Social History Tobacco Use Smoking status: Never Smokeless tobacco: Never Vaping Use Vaping status: Never Used Substance Use Topics Alcohol use: No Drug use: No EXAM: BP 106/62 (BP Site: Left Arm, BP Position: Sitting, BP Cuff Size: Regular Adult) Pulse 62 Resp 18 Wt 78.9 kg (174 lb) SpO2 95% BMI 25.70 kg/m General Appearance: Well appearing, alert, in no acute distress, well-hydrated, well nourished.. Lungs: Lungs clear to auscultation. No wheezing, rhonchi, rales.. Heart: irregular. Extremities: mild pitting edema. Health Maintenance List DTaP,Tdap,Td Vaccine(2 - Td or Tdap) due on 09/02/2021 Covid-19 Vaccine( season) due on 12/12/2024 RSV Vaccine(1 - 1-dose 75+ series) due on 05/16/2025 Depression Screening due on 05/16/2025 Anxiety Screening due on 05/16/2025 LDL Cholesterol due on 11/02/2025 Diabetes Screening due on 11/03/2027 Influenza Vaccine Completed Advance Directive Discussion Completed Shingrix Vaccine Completed Pneumococcal Vaccine: 50+ Completed Data reviewed ER reports from [facility] ASSESSMENT/PLAN: 1. Acute congestive heart failure, unspecified heart failure type (HCC) - ICD9: 428.0, ICD10: I50.9(primary diagnosis) EF 40% Diuresing well - Continue current medications - FUROSEMIDE 40 MG TABLET - SEAT LIFT MECHANISM COMBL - MATTRESS FOAM RUBBER - OXIMETER NON-INVASIVE - AUTOMATIC BP MONITOR, DIAL - COMPREHENSIVE METABOLIC PANEL - COMPLETE BLOOD COUNT 2. Essential hypertension, benign - ICD9: 401.1, ICD10: I10 - Controlled - Continue current medications - Recommend home blood pressure monitoring, to bring results to next visit - Encouraged sodium restriction, DASH or Mediterranean diet - Recommend regular aerobic exercise - FUROSEMIDE 40 MG TABLET - SEAT LIFT MECHANISM COMBL - MATTRESS FOAM RUBBER - OXIMETER NON-INVASIVE - AUTOMATIC BP MONITOR, DIAL - COMPREHENSIVE METABOLIC PANEL - COMPLETE BLOOD COUNT 3. Stage 3 chronic kidney disease, unspecified whether stage 3a or 3b CKD (HCC) - ICD9: 585.3, ICD10: N18.30 - eGFR: 59 Stable Check labs today - FUROSEMIDE 40 MG TABLET - SEAT LIFT MECHANISM COMBL - MATTRESS FOAM RUBBER - OXIMETER NON-INVASIVE - AUTOMATIC BP MONITOR, DIAL - COMPREHENSIVE METABOLIC PANEL - COMPLETE BLOOD COUNT 4. Coronary artery disease involving [place] coronary artery of [place] heart without angina pectoris- ICD9: 414.01, ICD10: I25.10 Continue current medications. - FUROSEMIDE 40 MG TABLET - SEAT LIFT MECHANISM COMBL - MATTRESS FOAM RUBBER - OXIMETER NON-INVASIVE - AUTOMATIC BP MONITOR, DIAL - COMPREHENSIVE METABOLIC PANEL - COMPLETE BLOOD COUNT 5. Atrial fibrillation, unspecified type (HCC) - ICD9: 427.31, ICD10: I48.91 Continue current medications. - FUROSEMIDE 40 MG TABLET - SEAT LIFT MECHANISM COMBL - MATTRESS FOAM RUBBER - OXIMETER NON-INVASIVE - AUTOMATIC BP MONITOR, DIAL - COMPREHENSIVE METABOLIC PANEL - COMPLETE BLOOD COUNT Medical Decision Making: Problems: Moderate: 1+ chronic illnesses with change and 2+ stable chronic illnesses Data: Unique test(s) ordered: 2 Risk: Moderate: Drug management Medical Decision Making Level: 4 - Moderate Tyra Munoz MD [facility] in [facility] NoteHNO ID: [id number] Author: TYRA MUNOZ MD Service: ? Author Type: Physician Type: Progress Notes Filed: 01/19/2025 17:25 Note Text: Chief Complaint Patient presents with: Follow Up HPI Valdo Gomez is a 89 year old male who presents here today for 2 week follow up. Since last visit pt was admitted into [facility] for hypoxia and a-fib. Was d/c on 01/09/25. Has not followed up with Cardiology since his admission. EF 40 % onecho. CHF/Edema/SOB/A-fib: Follows with [facility] with most recent on 01/06/25, when he was admitted. Is taking Eliquis 2.5 mg 1 pill BID. Pt advised at the ED to increase Lasix 40 mg to 2 tabs in the am and 1 pm. Potassium Chloride 20 mEq bid was added. Weighing at home daily, today's weight was 174 lbs. Now on O2, 3L. Needs assistance with getting up at home. Requiring assistance with activities of daily living. Past medical history, appointments, medications, allergies reviewed. Previous Medical History PAST MEDICAL HISTORY Diagnosis Date Arthropathy, unspecified, site unspecified CAD (coronary artery disease) Essential hypertension, benign History of recurrent deep vein thrombosis (DVT) 2002 Obesity, unspecified Other premature beats Unspecified hypertensive heart disease Previous Surgical History PAST SURGICAL HISTORY Procedure Laterality Date ARTHRP ACETBLR/PROX FEM PROSTC AGRFT/ALGRFT 02/16 L side ARTHRP ACETBLR/PROX FEM PROSTC AGRFT/ALGRFT 1987 R side CATARACT EXTRACTION HX Bilateral 2014 lens implants PAST SURGICAL HISTORY OF N/A 05/20/2018 Resection Bladder Tumor Transurethral PERC TRANSL COR ANGIO 06/13/2010 Percutaneous Transluminal Coronary Angio Stent REVJ TOT HIP ARTHRP [facility] W/WO AGRFT/ALGRFT 07/19 R side RPR 1ST INGUN HRNA AGE 5 YRS/> REDUCIBLE 1996 R side RPR 1ST INGUN HRNA AGE 6 YRS/> REDUCIBLE 08/18 L side TONSILLECTOMY HX age 8 Family History No family history on file. Patient Allergies ALLERGIES Allergen Reactions Sharon Inhibitors Other: See Comments Severe hypotension Vioxx [Rofecoxib] GI Upset Current Medications Current Outpatient Medications on File Prior to Visit Medication Sig furosemide (LASIX) 40 mg tablet Take 1 tablet by mouth once daily. ELIQUIS 2.5 mg tab(s) Take 1 tablet by mouth every 12 hours. furosemide (LASIX) 40 mg tablet Take 2 tablets by mouth once daily. nitroglycerin sublingual (NITROSTAT) 0.4 mg SL tablet Dissolve 1 tablet under the tongue as needed. DISSOLVE ON TONGUE FOR CHEST PAIN. IF NO PAIN RELIEF, CALL 911 Amoxicillin 500 mg tablet Take 6 tablets one hour before the dentist and 2 tablets six hours afterward. allopurinol (ZYLOPRIM) 300 mg tablet Take 1 tablet by mouth once daily. pravastatin (PRAVACHOL) 20 mg tablet Take 1 tablet by mouth once daily. carvedilol (COREG) 3.125 mg tablet Take 1 tablet by mouth two times a day. brinzolamide-brimonidine 1%-0.2 % Ophth Susp Use 1 Drop in both eyes two times a day. triamcinolone (KENALOG) 0.025 % cream Apply to affected area two times a day. Right ear. bimatoprost (LUMIGAN) 0.01 % drop ophthalmic drops Use 1 Drop in both eyes daily at bedtime. Lutein 10 mg tab Take 10 mg by mouth once daily. multivitamin tablet Take 1 tablet by mouth once daily. niacin sustained release 500 mg tablet Take 1 tablet by mouth daily at bedtime. No current facility-administered medications on file prior to visit. Social History Social History Tobacco Use Smoking status: Never Smokeless tobacco: Never Vaping Use Vaping status: Never Used Substance Use Topics Alcohol use: No Drug use: No EXAM: BP 106/62 (BP Site: Left Arm, BP Position: Sitting, BP Cuff Size: Regular Adult) Pulse 62 Resp 18 Wt 78.9 kg (174 lb) SpO2 95% BMI 25.70 kg/m? General Appearance: Well appearing, alert, in no acute distress, well-hydrated, well nourished.. Lungs: Lungs clear to auscultation. No wheezing, rhonchi, rales.. Heart: irregular. Extremities: mild pitting edema. Health Maintenance List DTaP,Tdap,Td Vaccine(2 - Td or Tdap) due on 09/02/2021 Covid-19 Vaccine( season) due on 12/12/2024 RSV Vaccine(1 - 1-dose 75+ series) due on 05/16/2025 Depression Screening due on 05/16/2025 Anxiety Screening due on 05/16/2025 LDL Cholesterol due on 11/02/2025 Diabetes Screening due on 11/03/2027 Influenza Vaccine Completed Advance Directive Discussion Completed Shingrix Vaccine Completed Pneumococcal Vaccine: 50+ Completed Data reviewed ER reports from [facility] ASSESSMENT/PLAN: 1. Acute congestive heart failure, unspecified heart failure type (HCC) - ICD9: 428.0, ICD10: I50.9 (primary diagnosis) EF 40% Diuresing well - Continue current medications - FUROSEMIDE 40 MG TABLET - SEAT LIFT MECHANISM COMBL - MATTRESS FOAM RUBBER - OXIMETER NON-INVASIVE - AUTOMATIC BP MONITOR, DIAL - COMPREHENSIVE METABOLIC PANEL - COMPLETE BLOOD COUNT 2. Essential hypertension, benign - ICD9: 401. (more content not included)... [facility]05-26-2025 Discharge summary Author Abundio Hurtado [facility] Note Date/Time January 09, 2025 1:45p m [facility] Medical Records Department [address] [place] [address] Discharge Summary 01/09/25 0806 MR#: [id number] Acct: [id number] Name: VALDO GOMEZ Rep #:[id number] : [id number] From: Abundio Hurtado MD PCP: Dr. Tyra Munoz MD Status:AD M IN Location: [facility] [id number] Providers Date of Admission: 01/06/25 Date of Discharge: 01/09/25 Primary Care Physician: Dr. Tyra Munoz MD Reason For Visit: FLUID OVERLOAD Diagnosis Discharge Diagnosis (1) CHF (congestive heart failure): Status: Acute Code(s): I50.9 - Heart failure, unspecified Qualifiers: Heart failure chronicity: acute Heart failure type: unspecified Qualified Code(s): I50.9 - Heart failure, unspecified Plan Patient is an 89-year-old gentleman with past medical history sent in for coronary artery disease with previous stent placement, paroxysmal atrial fibrillation who presented with progressive shortness of breath. An assessment of acute congestive heart failure made admitted to monitored bed for subsequent management 1. Acute hypoxia ? Secondary to acute congestive heart failure. Admitted to the monitored bed with treatment of the underlying etiology. Placed on oxygen titrated to keep saturation greater than 90. Plan is to assess patient for home oxygen needs prior to discharge ? I have reviewed the oxygen testing, and this patient qualifies for the home equipment and portability. The patient is mobile in the home and the community. 2. Acute congestive heart failure with reduced ejection fraction ? Patient previous echo from 2016 demonstrated preserved ejection fraction. Echo repeated on 12/18/2024 demonstrated LVEF of 40% with mild to moderate global hypokinesis of the left ventricle. Patient has been admitted to monitored bed manage with strict input and output, daily weight, fluid restriction low-sodium diet as well as diuretic therapy with furosemide ? 01/08/2025; Patient seen tolerating diuretic therapy well so far. Patient is net negative fluid balance of 1 L over the past 24 hours ? 01/09/2025; adjusted patient Lasix dose with addition of 40 mg of p.o. Lasix inthe evening in addition to his 80 mg in the morning 3. Elevated troponin ? Secondary to demand ischemia from fluid overload 4. Chronic kidney disease stage IIIb ? Monitoring kidney function with daily BMPs in view of patient being on furosemide 5. Gout ? Patient is on allopurinol did continue 6. Dyslipidemia ? Patient is on both pravastatin as well as niacin did continue 7. Vision changes in left eye - Patient specifically reports altered depth perception with his left eye but isable to see things without difficulty, given this vague and nonspecific focal complaint will obtain routine CT head to verify no significant abnormalities, suspect patient can have further workup outpatient if this is negative 8. Paroxysmal Atrial Fibrillation -Rate controlled with carvedilol. Patient was on systemic anticoagulation with apixaban did continue 9. Coronary artery disease ? With previous PCI in 2009 patient remains on guideline directed medical therapy 10. Thrombocytopenia ? Appears to be chronic patient platelet count has been ranging from 100-70 since 2002. Daily monitoring with CBC with differential ordered 11. DVT prophylaxis - Not indicated, patient on full dose anticoagulation 12. Hypokalemia ? Secondary to patient being on diuretic therapy corrected per protocol ? 01/09/2025; prescription written for potassium supplement on discharge Medications at Discharge Home Medications allopurinol 300 mg tablet 300 mg PO DAILY 09/13/17 amoxicillin 500 mg tablet 2,000 mg PO DAILY PRN DENTIST 09/13/17 bimatoprost 0.01 % eye drops (Lumigan) 1 drp ophthalmic (eye) QHS 09/13/17 carvedilol 3.125 mg tablet (Coreg) 3.125 mg PO BID 09/13/17 [id number] 300 mcg-K 60 mcg-lycop 600 mcg-lutein 300 mcg tablet (Centrivette Silver Men) 1 tab PO DAILY 09/13/17 niacin 500 mg tablet,extended release 24 hr (Niaspan) 500 mg PO QHS 09/13/17 nitroglycerin 0.4 mg sublingual tablet 0.4 mg sublingual Q5-15M PRN chest pain 09/13/17 pravastatin 20 mg tablet 20 mg PO QHS 09/14/17 brinzolamide 1 %-brimonidine 0.2 % eye drops,suspension (Simbrinza) 1 drp ophthalmic (eye) BID 02/10/19 apixaban 2.5 mg tablet (Eliquis) 2.5 mg PO BID #60 tabs 12/07/24 lutein 10 mg tablet 10 mg PO DAILY 12/07/24 aspirin 81 mg tablet 81 mg PO QDAY 01/06/25 furosemide 40 mg tablet 80 mg PO DAILY 01/06/25 furosemide 40 mg tablet (Lasix) 40 mg PO DAILY #60 tabs 01/09/25 potassium chloride 20 mEq tablet,extended release(part/cryst) 20 meq PO BIDCM 30days #60 tabs 01/09/25 Hospital Course Procedures 2-D Echocardiogram Summary of Care Provided Minutes Spent on Discharge: 35 Physical Exam Narrative GENERAL: cooperative but appears to be hard of hearing HEENT: Atraumatic; normocephalic EYES; Anicteric, Normal Conjunctiva NECK; supple, normal thyroid, RESPIRATORY: Diminished to auscultation CARDIOVASCULAR: Irregularly irregular GI: soft, normoactive bowel sounds, : No Renal angle tenderness; EXTREMITIES: 2+ bipedal edema no clubbing, MUSCULOSKELETAL: no muscle wasting NEURO: Awake; no lateralizing signs. SKIN: No Rash PSYCH; Flat affect Weight / BMI Weight Weight: 87.8 kg Body Mass Index (BMI) 27.8 ABG / Lab / Microbiology Data 01/09/25 04:41 01/09/25 04:41 Laboratory: Laboratory Results - last 24 hr 01/09/25 04:41: WBC 5.3, RBC 3.82 L, Hgb 13.8, Hct 40.7, MCV 106.5 H, MCH 36.1 H, MCHC 33.9, RDW Std Deviation 59.2 H, RDW Coeff of Yanet 14.9 H, Plt Count 84 L, MPV 11.5, Immature Gran % (Auto) 0.400, Neut % (Auto) 62.1, Lymph % (Auto) 17.8 L, Floyd % (Auto) 16.5 H, Eos % (Auto) 2.8, Baso % (Auto) 0.4, Absolute Neuts (auto) 3.3, Absolute Lymphs (auto) 0.94, Nucleated RBC % 0, Sodium 141, Potassium 3.4, Chloride 101, Carbon Dioxide 28.6, Anion Gap 11, BUN 38 H, Creatinine 1.25 H, Estim Creat Clear Calc 45.67 L, Est GFR (MDRD) Non-Af 55 L, BUN/Creatinine Ratio 30.6 H, Glucose 118 H, Calcium 8.8 D/C Instructions Discharge Diet: 8 Cup Fluid Restriction and 2000 mg Sodium Diet Discharge Activity: Return to Normal Activity Call your doctor if you observe: Fever of 101 or Higher, Shortness of breath, Fainting spells and Chest pain DC O2, CPAP, BIPAP Needs Home O2 Discharge instructions: Yes Type of respiratory needs?: Oxygen Oxygen frequency: With Ambulation Oxygen liters per minute during Ambulation: 2 DC home with Oxygen: Yes Home O2 MD Review: I have reviewed the oxygen testing, and the patient qualifies for home oxygen equipment and portability. The patient is mobile in the home and the community. Meaningful Use Info Meaningful Use Meaningful Use Diagnoses (Choose all that apply): CHF CHF SHARON/ARB ordered at discharge?: No Reason SHARON/ARB not ordered?: Allergy Documented LVEF (%): 40 Ischemic Stroke Statin Dosing Therapy Reference: STATIN DOSE THERAPY REFERENCE: * Patients > 75 years receive moderate or high dose statin therapy. * Patients 75 years or YOUNGER should receive HIGH intensity statin dose unless contraindicated. You will be required to document reason for non-treatment if statin daily dose does not meet guidelines. HIGH DOSE STATIN THERAPY DAILY Atorvastatin > than or = to 40 mg Rosuvastatin > than or = to 20 mg Amlodipine + Atorvastatin > than or = to 2.5/40 mg Ezetimibe + Simvastatin 10/80 mg Simvastatin 80mg Discharge Plan Admission Admit Date/Time: 01/06/25 15:46 Attending Provider: Abundio Hurtado Primary Care Provider: Tyra Munoz Consulting Providers: Ariela Luciano Discharge Orders/Prescriptions Prescriptions: New potassium chloride 20 mEq Tablet,Er Particles/Crystals 20 meq PO BIDCM 30 Days Qty: 60 0RF furosemide [Lasix] 40 mg tablet 40 mg PO DAILY Qty: 60 0RF Rx Instructions: take at 4pm Continued pravastatin 20 mg tablet 20 mg PO QHS allopurinol 300 mg tablet 300 mg PO DAILY nitroglycerin 0.4 mg tablet, sublingual 0.4 mg SUBLINGUAL Q5-15M PRN (Reason: chest pain) niacin [Niaspan Extended-Release] 500 mg tablet extended release 24 hr 500 mg PO QHS carvedilol [Coreg] 3.125 mg tablet 3.125 mg PO BID amoxicillin 500 mg tablet 2,000 mg PO DAILY PRN (Reason: DENTIST) Patient Comments: 30-60 minutes prior to dental procedure Lumigan 0.01 % drops 1 drp OPHTHALMIC QHS Rx Instructions: 1 DROP IN BOTH EYES Centrum Silver Men 300-600-300 mcg tablet 1 tab PO DAILY Simbrinza 1-0.2 % drops,suspension 1 drp OPHTHALMIC BID aspirin 81 mg tablet 81 mg PO QDAY furosemide 40 mg tablet 80 mg PO DAILY lutein 10 mg tablet 10 mg PO DAILY Rx Instructions: give with meal/snack Eliquis 2.5 mg tablet 2.5 mg PO BID Qty: 60 0RF Referrals / Follow Up: Tyra Munoz MD [Primary Care Provider] - Within 2 Weeks Disposition Disposition (needs filled in before D/C Order can be placed): Home, Self Care Charges/Coding Visit Charges Inpatient E&M: 51420 Disch Hosp >30min 01/09/25 1345 <Electronically signed by Abundio Hurtado MD> Cosigner Signature (if applicable): CC: Dr. Abundio Hurtado MD; Dr. Tyra Munoz MD~ Signed [facility] Work Phone: [phone] 123-683905-26-2025 Discharge summary [facility] Medical Records Department [address] [place] [address] Discharge Summary 01/09/25 0806 MR#: [id number] Acct: [id number] Name: VALDO GOMEZ Alba Rep #:[id number] : 1935 89 From: Abundio Hurtado MD PCP: Dr. Tyra Munoz MD Status:AD M IN Location: [facility] [id number] Providers Date of Admission: 01/06/25 Date of Discharge: 01/09/25 Primary Care Physician: Dr. Tyra Munoz MD Reason For Visit: FLUID OVERLOAD Diagnosis Discharge Diagnosis (1) CHF (congestive heart failure): Status: Acute Code(s): I50.9 - Heart failure, unspecified Qualifiers: Heart failure chronicity: acute Heart failure type: unspecified Qualified Code(s): I50.9 - Heart failure, unspecified Plan Patient is an 89-year-old gentleman with past medical history sent in for coronary artery disease with previous stent placement, paroxysmal atrial fibrillation who presented with progressive shortness of breath. An assessment of acute congestive heart failure made admitted to monitored bed for subsequent management 1. Acute hypoxia ? Secondary to acute congestive heart failure. Admitted to the monitored bed with treatment of the underlying etiology. Placed on oxygen titrated to keep saturation greater than 90. Plan is to assesspatient for home oxygen needs prior to discharge ? I have reviewed the oxygen testing, and this patient qualifies for the home equipment and portability. The patient is mobile in the home and the community. 2. Acute congestive heart failure with reduced ejection fraction ? Patient previous echo from 2017 demonstrated preserved ejection fraction. Echo repeated on 12/18/2024 demonstrated LVEF of 40% with mild to moderate global hypokinesis of the left ventricle. Patient has been admitted to monitored bed manage with strict input and output, daily weight, fluid restriction low-sodium diet as well as diuretic therapy with furosemide ? 01/08/2025; Patient seen tolerating diuretic therapy well so far. Patient is net negative fluid balance of 1 L over the past 24 hours ? 01/09/2025; adjusted patient Lasix dose with addition of 40 mg of p.o. Lasix inthe evening in addition to his 80 mg in the morning 3. Elevated troponin ? Secondary to demand ischemia from fluid overload 4. Chronic kidney disease stage IIIb ? Monitoring kidney function with daily BMPs in view of patient being on furosemide 5. Gout ? Patient is on allopurinol did continue 6. Dyslipidemia ? Patient is on both pravastatin as well as niacin did continue 7. Vision changes in left eye - Patient specifically reports altered depth perception with his left eye but isable to see things without difficulty, given this vague and nonspecific focal complaint will obtain routine CT head to verify no significant abnormalities, suspect patient can have further workup outpatient if this is negative 8. Paroxysmal Atrial Fibrillation -Rate controlled with carvedilol. Patient was on systemic anticoagulation with apixaban did continue 9. Coronary artery disease ? With previous PCI in 2009 patient remains on guideline directed medical therapy 10. Thrombocytopenia ? Appears to be chronic patient platelet count has been ranging from 100-70 since 2002. Daily monitoring with CBC with differential ordered 11. DVT prophylaxis - Not indicated, patient on full dose anticoagulation 12. Hypokalemia ? Secondary to patient being on diuretic therapy corrected per protocol ? 01/09/2025; prescription written for potassium supplement on discharge Medications at Discharge Home Medications allopurinol 300 mg tablet 300 mg PO DAILY 09/13/17 amoxicillin 500 mg tablet 2,000 mg PO DAILY PRN DENTIST 09/13/17 bimatoprost 0.01 % eye drops (Lumigan) 1 drp ophthalmic (eye) QHS 09/13/17 carvedilol 3.125 mg tablet (Coreg) 3.125 mg PO BID 09/13/17 qurtfiur-aw-dkfoa 300 mcg-K 60 mcg-lycop 600 mcg-lutein 300 mcg tablet (Centrum Silver Men) 1 tab PO DAILY 09/13/17 niacin 500 mg tablet,extended release 24 hr (Niaspan) 500 mg PO QHS 09/13/17 nitroglycerin 0.4 mg sublingual tablet 0.4 mg sublingual Q5-15M PRN chest pain 09/13/17 pravastatin 20 mg tablet 20 mg PO QHS 09/14/17 brinzolamide 1 %-brimonidine 0.2 % eye drops,suspension (Simbrinza) 1 drp ophthalmic (eye) BID 02/10/19 apixaban 2.5 mg tablet (Eliquis) 2.5 mg PO BID #60 tabs 12/07/24 lutein 10 mg tablet 10 mg PO DAILY 12/07/24 aspirin 81 mg tablet 81 mg PO QDAY 01/06/25 furosemide 40 mg tablet 80 mg PO DAILY 01/06/25 furosemide 40 mg tablet (Lasix) 40 mg PO DAILY #60 tabs 01/09/25 potassium chloride 20 mEq tablet,extended release(part/cryst) 20 meq PO BIDCM 30days #60 tabs 01/09/25 Hospital Course Procedures 2-D Echocardiogram Summary of Care Provided Minutes Spent on Discharge: 35 Physical Exam Narrative GENERAL: cooperative but appears to be hard of hearing HEENT: Atraumatic; normocephalic EYES; Anicteric, Normal Conjunctiva NECK; supple, normal thyroid, RESPIRATORY: Diminished to auscultation CARDIOVASCULAR: Irregularly irregular GI: soft, normoactive bowel sounds, : No Renal angle tenderness; EXTREMITIES: 2+ bipedal edema no clubbing, MUSCULOSKELETAL: no muscle wasting NEURO: Awake; no lateralizing signs. SKIN: No Rash PSYCH; Flat affect Weight / BMI Weight Weight: 87.8 kg Body Mass Index (BMI) 27.8 ABG / Lab / Microbiology Data 01/09/25 04:41 01/09/25 04:41 Laboratory: Laboratory Results - last 24 hr 01/09/25 04:41: WBC 5.3, RBC 3.82 L, Hgb 13.8, Hct 40.7, MCV 106.5 H, MCH 36.1 H, MCHC 33.9, RDW Std Deviation 59.2 H, RDW Coeff of Yanet 14.9 H, Plt Count 84 L, MPV 11.5, Immature Gran % (Auto) 0.400,Neut % (Auto) 62.1, Lymph % (Auto) 17.8 L, Floyd % (Auto) 16.5 H, Eos % (Auto) 2.8, Baso % (Auto) 0.4, Absolute Neuts (auto) 3.3, Absolute Lymphs (auto) 0.94, Nucleated RBC % 0, Sodium 141, Potassium 3.4, Chloride 101, Carbon Dioxide 28.6, Anion Gap 11, BUN 38 H, Creatinine 1.25 H, Estim Creat ClearCalc 45.67 L, Est GFR (MDRD) Non-Af 55 L, BUN/Creatinine Ratio 30.6 H, Glucose 118 H, Calcium 8.8 D/C Instructions Discharge Diet: 8 Cup Fluid Restriction and 2000 mg Sodium Diet Discharge Activity: Return to Normal Activity Call your doctor if you observe: Fever of 101 or Higher, Shortness of breath, Fainting spells and Chest pain DC O2, CPAP, BIPAP Needs Home O2 Discharge instructions: Yes Type of respiratory needs?: Oxygen Oxygen frequency: With Ambulation Oxygen liters per minute during Ambulation: 2 DC home with Oxygen: Yes Home O2 MD Review: I have reviewed the oxygen testing, and the patient qualifies for home oxygen equipment and portability. The patient is mobile in the home and the community. Meaningful Use Info Meaningful Use Meaningful Use Diagnoses (Choose all that apply): CHF CHF SHARON/ARB ordered at discharge?: No Reason SHARON/ARB not ordered?: Allergy Documented LVEF (%): 40 Ischemic Stroke Statin Dosing Therapy Reference: STATIN DOSE THERAPY REFERENCE: * Patients > 75 years receive moderate or high dose statin therapy. * Patients 75 years or YOUNGER should receive HIGH intensity statin dose unless contraindicated. You will be required to document reason for non-treatment if statin daily dose does not meet guidelines. HIGH DOSE STATIN THERAPY DAILY Atorvastatin > than or = to 40 mg Rosuvastatin > than or = to 20 mg Amlodipine + Atorvastatin > than or = to 2.5/40 mg Ezetimibe + Simvastatin 10/80 mg Simvastatin 80mg Discharge Plan Admission Admit Date/Time: 01/06/25 15:46 Attending Provider: Abundio Hurtado Primary Care Provider: Tyra Munoz Consulting Providers: Ariela Luciano Discharge Orders/Prescriptions Prescriptions: New potassium chloride 20 mEq Tablet,Er Particles/Crystals 20 meq PO BIDCM 30 Days Qty: 60 0RF furosemide [Lasix] 40 mg tablet 40 mg PO DAILY Qty: 60 0RF Rx Instructions: take at 4pm Continued pravastatin 20 mg tablet 20 mg PO QHS allopurinol 300 mg tablet 300 mg PO DAILY nitroglycerin 0.4 mg tablet, sublingual 0.4 mg SUBLINGUAL Q5-15M PRN (Reason: chest pain) niacin [Niaspan Extended-Release] 500 mg tablet extended release 24 hr 500 mg PO QHS carvedilol [Coreg] 3.125 mg tablet 3.125 mg PO BID amoxicillin 500 mg tablet 2,000 mg PO DAILY PRN (Reason: DENTIST) Patient Comments: 30-60 minutes prior to dental procedure Lumigan 0.01 % drops 1 drp OPHTHALMIC QHS Rx Instructions: 1 DROP IN BOTH EYES Centrum Silver Men 300-600-300 mcg tablet 1 tab PO DAILY Simbrinza 1-0.2 % drops,suspension 1 drp OPHTHALMIC BID aspirin 81 mg tablet 81 mg PO QDAY furosemide 40 mg tablet 80 mg PO DAILY lutein 10 mg tablet 10 mg PO DAILY Rx Instructions: give with meal/snack Eliquis 2.5 mg tablet 2.5 mg PO BID Qty: 60 0RF Referrals / Follow Up: Tyra Munoz MD [Primary Care Provider] - Within 2 Weeks Disposition Disposition (needs filled in before D/C Order can be placed): Home, Self Care Charges/Coding Visit Charges Inpatient E&M: 18188 Disch Hosp >30min 01/09/25 1345 Cosigner Signature (if applicable): CC: Dr. Abundio Hurtado MD; Dr. Tyra Munoz MD~ Signed [facility]05-26-2025 [facility] Medical Records Department [address] [place] [address] Discharge Summary 01/09/25 0806 MR#: [id number] Acct: [id number] Name: VALDO GOMEZ Rep #: [id number] : 1935 89 From: Abundio Hurtado MD PCP: Dr. Tyra Munoz MD Status:ADM IN Location: [place] [address] Providers Date of Admission: 01/06/25 Date of Discharge: 01/09/25 Primary Care Physician: Dr. Tyra Munoz MD Reason For Visit: FLUID OVERLOAD Diagnosis Discharge Diagnosis (1) CHF (congestive heart failure): Status: Acute Code(s): I50.9 - Heart failure, unspecified Qualifiers: Heart failure chronicity: acute Heart failure type: unspecified Qualified Code(s): I50.9 - Heart failure, unspecified Plan Patient is an 89-year-old gentleman with past medical history sent in for coronary artery disease with previous stent placement, paroxysmal atrial fibrillation who presented with progressive shortness of breath. An assessment of acute congestive heart failure made admitted to monitored bed for subsequent management 1. Acute hypoxia ??? Secondary to acute congestive heart failure. Admitted to the monitored bed with treatment of the underlying etiology. Placed on oxygen titrated to keep saturation greater than 90. Plan is to assess patient for home oxygen needs prior to discharge ??? I have reviewed the oxygen testing, and this patient qualifies for the home equipment and portability. The patient is mobile in the home and the community. 2. Acute congestive heart failure with reduced ejection fraction ??? Patient previous echo from 2016 demonstrated preserved ejection fraction. Echo repeated on 12/18/2024 demonstrated LVEF of 40% with mild to moderate global hypokinesis of the left ventricle. Patient has been admitted to monitored bed manage with strict input and output, daily weight, fluid restriction low-sodium diet as well as diuretic therapy with furosemide ??? 01/08/2025; Patient seen tolerating diuretic therapy well so far. Patient is net negative fluid balance of 1 L over the past 24 hours ??? 01/09/2025; adjusted patient Lasix dose with addition of 40 mg of p.o. Lasix in the evening in addition to his 80 mg in the morning 3. Elevated troponin ??? Secondary to demand ischemia from fluid overload 4. Chronic kidney disease stage IIIb ??? Monitoring kidney function with daily BMPs in view of patient being on furosemide 5. Gout ??? Patient is on allopurinol did continue 6. Dyslipidemia ??? Patient is on both pravastatin as well as niacin did continue 7. Vision changes in left eye - Patient specifically reports altered depth perception with his left eye but is able to see things without difficulty, given this vague and nonspecific focal complaint will obtain routine CT head to verify no significant abnormalities, suspect patient can have further workup outpatient if this is negative 8. Paroxysmal Atrial Fibrillation -Rate controlled with carvedilol. Patient was on systemic anticoagulation with apixaban did continue 9. Coronary artery disease ??? With previous PCI in 2009 patient remains on guideline directed medical therapy 10. Thrombocytopenia ??? Appears to be chronic patient platelet count has been ranging from 100-70 since 2002. Daily monitoring with CBC with differential ordered 11. DVT prophylaxis - Not indicated, patient on full dose anticoagulation 12. Hypokalemia ??? Secondary to patient being on diuretic therapy corrected per protocol ??? 01/09/2025; prescription written for potassium supplement on discharge Medications at Discharge Home Medications allopurinol 300 mg tablet 300 mg PO DAILY 09/13/17 amoxicillin 500 mg tablet 2,000 mg PO DAILY PRN DENTIST 09/13/17 bimatoprost 0.01 % eye drops (Lumigan) 1 drp ophthalmic (eye) QHS 09/13/17 carvedilol 3.125 mg tablet (Coreg) 3.125 mg PO BID 09/13/17 zipdddop-sl-txiwa 300 mcg-K 60 mcg-lycop 600 mcg-lutein 300 mcg tablet (Centrum Silver Men) 1 tab PO DAILY 09/13/17 niacin 500 mg tablet,extended release 24 hr (Niaspan) 500 mg PO QHS 09/13/17 nitroglycerin 0.4 mg sublingual tablet 0.4 mg sublingual Q5-15M PRN chest pain 09/13/17 pravastatin 20 mg tablet 20 mg PO QHS 09/14/17 brinzolamide 1 %-brimonidine 0.2 % eye drops,suspension (Simbrinza) 1 drp ophthalmic (eye) BID 02/10/19 apixaban 2.5 mg tablet (Eliquis) 2.5 mg PO BID #60 tabs 12/07/24 lutein 10 mg tablet 10 mg PO DAILY 12/07/24 aspirin 81 mg tablet 81 mg PO QDAY 01/06/25 furosemide 40 mg tablet 80 mg PO DAILY 01/06/25 furosemide 40 mg tablet (Lasix) 40 mg PO DAILY #60 tabs 01/09/25 potassium chloride 20 mEq tablet,extended release(part/cryst) 20 meq PO BIDCM 30 days #60 tabs 01/09/25 Hospital Course Procedures 2-D Echocardiogram Summary of Care Provided Minutes Spent on Discharge: 35 Physical Exam Narrative GENERAL: cooperative but appears to be (more content not included)...[facility]05-25-2025 Progress note Author Abundio Hurtado [facility] Note Date/Time January 08, 2025 8:26a m [facility] Medical Records Department [address] [place] [address] Progress Note - Hospitalist 01/08/25 0735 MR#: [id number] Acct: [id number] Name: VALDO GOMEZ Rep #:[id number] : 1935 89 From: Abundio Hurtado MD PCP: Dr. Tyra Munoz MD Status:AD M IN Location: [place] [address] Reason for Visit Reason for Visit: Diagnoses Heart failure, unspecified (01/06/25) Subjective Subjective Patient seen tolerating diuretic therapy well so far. Patient is net negative fluid balance of 1 L over the past 24 hours Objective Data Objective Data Vital Signs: Vital Signs Temp Pulse Resp BP Pulse Ox O2 Del Method O2 Flow Rate 98.7 F 64 16 111/71 97 Nasal Cannula 3 01/08/25 03:46 01/08/25 03:46 01/08/25 03:46 01/08/25 03:46 01/08/25 03:46 01/08/25 03:50 01/08/25 03:50 Oxygen Flow Rate (L/min) 3 Oxygen Delivery Method Nasal Cannula Weight: 88.1 kg Body Mass Index (BMI) 27.8 Intake & Output: Intake and Output for Last 24 Hours 01/06/25 01/07/25 01/08/25 23:59 23:59 23:59 Intake Total 360 / 360 540 / 540 0 / 0 Output Total 400 / 400 1650 / 1650 600 / 600 Balance -40 / -40 -1110 / -1110 -600 / -600 Lab / Micro Data 01/08/25 03:27 01/08/25 03:27 Labs: Laboratory Results - last 24 hr 01/08/25 03:27: WBC 5.2, RBC 3.65 L, Hgb 13.2, Hct 39.4 L, MCV 107.9 H, MCH 36.2H, MCHC 33.5, RDW Std Deviation 60.6 H, RDW Coeff of Yanet 15.0 H, Plt Count 79 L,MPV 12.2 H, Immature Gran % (Auto) 0.400, Neut % (Auto) 64.1, Lymph % (Auto) 15.7 L, Floyd % (Auto) 16.9 H, Eos % (Auto) 2.5, Baso % (Auto) 0.4, Absolute Neuts (auto) 3.3, Absolute Lymphs (auto) 0.81 L, Nucleated RBC % 0, Sodium 140, Potassium 3.4, Chloride 100, Carbon Dioxide 29.7, Anion Gap 10, BUN 38 H, Creatinine 1.31 H, Estim Creat Clear Calc 43.58 L, Est GFR (MDRD) Non-Af 52 L, BUN/Creatinine Ratio 29.0 H, Glucose 114 H, Calcium 8.6, Phosphorus 3.4, Magnesium 2.0 Radiography Diagnostic Testing: Radiology Impression Echocardiogram 01/06/25 16:44 Interpretation Summary Normal LV size. The left ventricular ejection fraction is 40 %. Mild (1+) eccentric aortic valve insufficiency. There is mild to moderate global hypokinesis of the left ventricle. Moderate (2+) eccentric mitral valve insufficiency. Ordering Physician: Ariela Luciano Referring Physician: Tyra Munoz Performed By: Rona Darling, LESTER, RVT Brain MRI 01/07/25 12:27 IMPRESSION: Opacification of left maxillary sinus. The left orbit globe and lens are otherwise unremarkable. Reading Location: [facility] Physical Exam Narrative GENERAL: cooperative but appears to be hard of hearing HEENT: Atraumatic; normocephalic EYES; Anicteric, Normal Conjunctiva NECK; supple, normal thyroid, RESPIRATORY: Diminished to auscultation CARDIOVASCULAR: Irregularly irregular GI: soft, normoactive bowel sounds, : No Renal angle tenderness; EXTREMITIES: 2+ bipedal edema no clubbing, MUSCULOSKELETAL: no muscle wasting NEURO: Awake; no lateralizing signs. SKIN: No Rash PSYCH; Flat affect Assessment & Plan Assessment/Plan (1) CHF (congestive heart failure): QUALIFIERS: Heart failure chronicity: acute Heart failure type: unspecified Qualified Code(s): I50.9 - Heart failure, unspecified PLAN: Plan Patient is an 89-year-old gentleman with past medical history sent in for coronary artery disease with previous stent placement, paroxysmal atrial fibrillation who presented with progressive shortness of breath. An assessment of acute congestive heart failure made admitted to monitored bed for subsequent management 1. Acute hypoxia ? Secondary to acute congestive heart failure. Admitted to the monitored bed with treatment of the underlying etiology. Placed on oxygen titrated to keep saturation greater than 90. Plan is to assess patient for home oxygen needs prior to discharge 2. Acute congestive heart failure with reduced ejection fraction ? Patient previous echo from 2016 demonstrated preserved ejection fraction. Echo repeated on 12/18/2024 demonstrated LVEF of 40% with mild to moderate global hypokinesis of the left ventricle. Patient has been admitted to monitored bed manage with strict input and output, daily weight, fluid restriction low-sodium diet as well as diuretic therapy with furosemide ? 01/08/2025; Patient seen tolerating diuretic therapy well so far. Patient is net negative fluid balance of 1 L over the past 24 hours 3. Elevated troponin ? Secondary to demand ischemia from fluid overload 4. Chronic kidney disease stage IIIb ? Monitoring kidney function with daily BMPs in view of patient being on furosemide 5. Gout ? Patient is on allopurinol did continue 6. Dyslipidemia ? Patient is on both pravastatin as well as niacin did continue 7. Vision changes in left eye - Patient specifically reports altered depth perception with his left eye but isable to see things without difficulty, given this vague and nonspecific focal complaint will obtain routine CT head to verify no significant abnormalities, suspect patient can have further workup outpatient if this is negative 8. Paroxysmal Atrial Fibrillation -Rate controlled with carvedilol. Patient was on systemic anticoagulation with apixaban did continue 9. Coronary artery disease ? With previous PCI in 2009 patient remains on guideline directed medical therapy 10. Thrombocytopenia ? Appears to be chronic patient platelet count has been ranging from 100-70 since 2002. Daily monitoring with CBC with differential ordered 11. DVT prophylaxis - Not indicated, patient on full dose anticoagulation 12. Hypokalemia ? Secondary to patient being on diuretic therapy corrected per protocol Charges/Coding Visit Charges Inpatient E&M: 57082 Subs Hosp L2 01/08/25 0826 <Electronically signed by Abundio Hurtado MD> Cosigner Signature (if applicable): CC: ~ Signed [facility] Work Phone: [phone]) 193-834805-25-2025 Progress note [facility] Medical Records Department [address] [place] [id number] Progress Note - Hospitalist 01/08/25 0735 MR#: [id number] Acct: [id number] Name: VALDO GOMEZ Rep #:[id number] : 1935 89 From: Abundio Hurtado MD PCP: Dr. Tyra Munoz MD Status:AD M IN Location: [place] [address] Reason for Visit Reason for Visit: Diagnoses Heart failure, unspecified (01/06/25) Subjective Subjective Patient seen tolerating diuretic therapy well so far. Patient is net negative fluid balance of 1 L over the past 24 hours Objective Data Objective Data Vital Signs: Vital Signs Temp Pulse Resp BP Pulse Ox O2 Del Method O2 Flow Rate 98.7 F 64 16 111/71 97 Nasal Cannula 3 01/08/25 03:46 01/08/25 03:46 01/08/25 03:46 01/08/25 03:46 01/08/25 03:46 01/08/25 03:50 01/08/25 03:50 Oxygen Flow Rate (L/min) 3 Oxygen Delivery Method Nasal Cannula Weight: 88.1 kg Body Mass Index (BMI) 27.8 Intake & Output: Intake and Output for Last 24 Hours 01/06/25 01/07/25 01/08/25 23:59 23:59 23:59 Intake Total 360 / 360 540 / 540 0 / 0 Output Total 400 / 400 1650 / 1650 600 / 600 Balance -40 / -40 -1110 / -1110 -600 / -600 Lab / Micro Data 01/08/25 03:27 01/08/25 03:27 Labs: Laboratory Results - last 24 hr 01/08/25 03:27: WBC 5.2, RBC 3.65 L, Hgb 13.2, Hct 39.4 L, MCV 107.9 H, MCH 36.2H, MCHC 33.5, RDW Std Deviation 60.6 H, RDW Coeff of Yanet 15.0 H, Plt Count 79 L,MPV 12.2 H, Immature Gran % (Auto) 0.400, Neut % (Auto) 64.1, Lymph % (Auto) 15.7 L, Floyd % (Auto) 16.9 H, Eos % (Auto) 2.5, Baso % (Auto) 0.4, Absolute Neuts (auto) 3.3, Absolute Lymphs (auto) 0.81 L, Nucleated RBC % 0, Sodium 140, Potassium 3.4, Chloride 100, Carbon Dioxide 29.7, Anion Gap 10, BUN 38 H, Creatinine 1.31 H, Estim Creat Clear Calc 43.58 L, Est GFR (MDRD) Non-Af 52 L, BUN/Creatinine Ratio 29.0 H, Glucose 114 H, Calcium 8.6, Phosphorus 3.4, Magnesium 2.0 Radiography Diagnostic Testing: Radiology Impression Echocardiogram 01/06/25 16:44 Interpretation Summary Normal LV size. The left ventricular ejection fraction is 40 %. Mild (1+) eccentric aortic valve insufficiency. There is mild to moderate global hypokinesis of the left ventricle. Moderate (2+) eccentric mitral valve insufficiency. Ordering Physician: Ariela Luciano Referring Physician: Tyra Munoz Performed By: Rona Darling, LESTER, RVT Brain MRI 01/07/25 12:27 IMPRESSION: Opacification of left maxillary sinus. The left orbit globe and lens are otherwise unremarkable. Reading Location: [facility] Physical Exam Narrative GENERAL: cooperative but appears to be hard of hearing HEENT: Atraumatic; normocephalic EYES; Anicteric, Normal Conjunctiva NECK; supple, normal thyroid, RESPIRATORY: Diminished to auscultation CARDIOVASCULAR: Irregularly irregular GI: soft, normoactive bowel sounds, : No Renal angle tenderness; EXTREMITIES: 2+ bipedal edema no clubbing, MUSCULOSKELETAL: no muscle wasting NEURO: Awake; no lateralizing signs. SKIN: No Rash PSYCH; Flat affect Assessment & Plan Assessment/Plan (1) CHF (congestive heart failure): QUALIFIERS: Heart failure chronicity: acute Heart failure type: unspecified Qualified Code(s): I50.9 - Heart failure, unspecified PLAN: Plan Patient is an 89-year-old gentleman with past medical history sent in for coronary artery disease with previous stent placement, paroxysmal atrial fibrillation who presented with progressive shortness of breath. An assessment of acute congestive heart failure made admitted to monitored bed for subsequent management 1. Acute hypoxia ? Secondary to acute congestive heart failure. Admitted to the monitored bed with treatment of the underlying etiology. Placed on oxygen titrated to keep saturation greater than 90. Plan is to assesspatient for home oxygen needs prior to discharge 2. Acute congestive heart failure with reduced ejection fraction ? Patient previous echo from 2017 demonstrated preserved ejection fraction. Echo repeated on 12/18/2024 demonstrated LVEF of 40% with mild to moderate global hypokinesis of the left ventricle. Patient has been admitted to monitored bed manage with strict input and output, daily weight, fluid restriction low-sodium diet as well as diuretic therapy with furosemide ? 01/08/2025; Patient seen tolerating diuretic therapy well so far. Patient is net negative fluid balance of 1 L over the past 24 hours 3. Elevated troponin ? Secondary to demand ischemia from fluid overload 4. Chronic kidney disease stage IIIb ? Monitoring kidney function with daily BMPs in view of patient being on furosemide 5. Gout ? Patient is on allopurinol did continue 6. Dyslipidemia ? Patient is on both pravastatin as well as niacin did continue 7. Vision changes in left eye - Patient specifically reports altered depth perception with his left eye but isable to see things without difficulty, given this vague and nonspecific focal complaint will obtain routine CT head to verify no significant abnormalities, suspect patient can have further workup outpatient if this is negative 8. Paroxysmal Atrial Fibrillation -Rate controlled with carvedilol. Patient was on systemic anticoagulation with apixaban did continue 9. Coronary artery disease ? With previous PCI in 2009 patient remains on guideline directed medical therapy 10. Thrombocytopenia ? Appears to be chronic patient platelet count has been ranging from 100-70 since 2002. Daily monitoring with CBC with differential ordered 11. DVT prophylaxis - Not indicated, patient on full dose anticoagulation 12. Hypokalemia ? Secondary to patient being on diuretic therapy corrected per protocol Charges/Coding Visit Charges Inpatient E&M: 43501 Subs Hosp L2 01/08/25 0826 Cosigner Signature (if applicable): CC: ~ Signed [facility]05-24-2025 Progress note Author Abundio Hurtado [facility] Note Date/Time January 07, 2025 11:22 am [facility] Medical Records Department [address] [place] [id number] Progress Note - Hospitalist 01/07/25 0934 MR#: [id number] Acct: [id number] Name: VALDO GOMEZ Rep #:[id number] : 1935 89 From: Abundio Hurtado MD PCP: Dr. Tyra Munoz MD Status:AD M IN Location: [facility] [id number] Reason for Visit Reason for Visit: Diagnoses Heart failure, unspecified (01/06/25) Subjective Subjective Patient is an 89-year-old gentleman with past medical history sent in for coronary artery disease with previous stent placement, paroxysmal atrial fibrillation who presented with progressive shortness of breath. An assessment of acute congestive heart failure made admitted to monitored bed for subsequent management Objective Data Objective Data Vital Signs: Vital Signs Temp Pulse Resp BP Pulse Ox O2 Del Method O2 Flow Rate 97.4 F L 63 18 105/69 100 Nasal Cannula 5 01/07/25 07:57 01/07/25 07:57 01/07/25 07:57 01/07/25 07:57 01/07/25 07:57 01/07/25 07:57 01/07/25 07:57 Oxygen Flow Rate (L/min) 5 Oxygen Delivery Method Nasal Cannula Weight: 87.5 kg Body Mass Index (BMI) 27.6 Intake & Output: Intake and Output for Last 24 Hours 01/05/25 01/06/25 01/07/25 23:59 23:59 23:59 Intake Total 360 / 360 Output Total 400 / 400 650 / 650 Balance -40 / -40 -650 / -650 Lab / Micro Data 01/07/25 04:24 01/07/25 04:24 Labs: Laboratory Results - last 24 hr 01/06/25 14:19: WBC 4.4, RBC 4.36 L, Hgb 15.8, Hct 46.9, MCV 107.6 H, MCH 36.2 H, MCHC 33.7, RDW Std Deviation 60.3 H, RDW Coeff of Yanet 15.0 H, Plt Count 98 L, MPV 10.5, Immature Gran % (Auto) 0.500, Neut % (Auto) 65.5, Lymph % (Auto) 18.1 L, Floyd % (Auto) 13.8 H, Eos % (Auto) 1.6, Baso % (Auto) 0.5, Absolute Neuts (auto) 2.9, Absolute Lymphs (auto) 0.79 L, Nucleated RBC % 0.5, Platelet Estimate SLT DEC, PT 18.1 H, INR 1.5, APTT 41.0 H, Sodium 135, Potassium 3.7, Chloride 96 L, Carbon Dioxide 27.0, Anion Gap 13, BUN 33 H, Creatinine 1.51 H, Estim Creat Clear Calc 38.97 L, Est GFR (MDRD) Non-Af 44 L, BUN/Creatinine Ratio 22.1 H, Glucose 129 H, Calcium 9.4, Troponin T High Sens 65 H* D, NT pro BNP II 9617 H 01/06/25 16:20: Troponin T Hi Sens 4Hr 54 H* 01/06/25 16:45: Troponin T Hi Sens 2 Hr 57 H* 01/07/25 04:24: WBC 4.3 L, RBC 3.66 L, Hgb 13.2, Hct 39.4 L, MCV 107.7 H, MCH 36.1 H, MCHC 33.5, RDW Std Deviation 59.8 H, RDW Coeff of Yanet 15.0 H, Plt Count 76 L, MPV 11.8, Immature Gran % (Auto) 0.200, Neut % (Auto) 59.5, Lymph % (Auto)21.5, Floyd % (Auto) 15.7 H, Eos % (Auto) 2.6, Baso % (Auto) 0.5, Absolute Neuts (auto) 2.5, Absolute Lymphs (auto) 0.92, Nucleated RBC % 0, Sodium 138, Potassium 3.0 L, Chloride 98, Carbon Dioxide 30.3, Anion Gap 10, BUN 37 H, Creatinine 1.44 H, Estim Creat Clear Calc 36.61 L, Est GFR (MDRD) Non-Af 47 L, BUN/Creatinine Ratio 25.5 H, Glucose 80, Calcium 8.7 Radiography Diagnostic Testing: Radiology Impression Chest X-Ray 01/06/25 14:20 IMPRESSION: Cardiomegaly with mild congestion. Reading Location: [facility] Brain CT 01/06/25 16:44 IMPRESSION: 1. No acute intracranial abnormality. Senescent changes. 2. Bilateral enophthalmos. 3. Left maxillary sinus disease. Presence of hyperdense contents may be seen with fungal etiology. 4. Punctate foci of air in the region of the cavernous sinuses, which could be related to intravenous access in the absence of trauma. Infection is also possible but statistically less likely. Reading Location: [facility] Physical Exam Narrative GENERAL: cooperative but appears to be hard of hearing HEENT: Atraumatic; normocephalic EYES; Anicteric, Normal Conjunctiva NECK; supple, normal thyroid, RESPIRATORY: Diminished to auscultation CARDIOVASCULAR: Irregularly irregular GI: soft, normoactive bowel sounds, : No Renal angle tenderness; EXTREMITIES: 2+ bipedal edema no clubbing, MUSCULOSKELETAL: no muscle wasting NEURO: Awake; no lateralizing signs. SKIN: No Rash PSYCH; Flat affect Assessment & Plan Assessment/Plan (1) CHF (congestive heart failure): QUALIFIERS: Heart failure chronicity: acute Heart failure type: unspecified Qualified Code(s): I50.9 - Heart failure, unspecified PLAN: Plan Patient is an 89-year-old gentleman with past medical history sent in for coronary artery disease with previous stent placement, paroxysmal atrial fibrillation who presented with progressive shortness of breath. An assessment of acute congestive heart failure made admitted to monitored bed for subsequent management 1. Acute hypoxia ? Secondary to acute congestive heart failure. Admitted to the monitored bed with treatment of the underlying etiology. Placed on oxygen titrated to keep saturation greater than 90. Plan is to assess patient for home oxygen needs prior to discharge 2. Acute congestive heart failure with reduced ejection fraction ? Patient previous echo from 2016 demonstrated preserved ejection fraction. Echo repeated on 12/18/2024 demonstrated LVEF of 40% with mild to moderate global hypokinesis of the left ventricle. Patient has been admitted to monitored bed manage with strict input and output, daily weight, fluid restriction low-sodium diet as well as diuretic therapy with furosemide 3. Elevated troponin ? Secondary to demand ischemia from fluid overload 4. Chronic kidney disease stage IIIb ? Monitoring kidney function with daily BMPs in view of patient being on furosemide 5. Gout ? Patient is on allopurinol did continue 6. Dyslipidemia ? Patient is on both pravastatin as well as niacin did continue 7. Vision changes in left eye - Patient specifically reports altered depth perception with his left eye but isable to see things without difficulty, given this vague and nonspecific focal complaint will obtain routine CT head to verify no significant abnormalities, suspect patient can have further workup outpatient if this is negative 8. Paroxysmal Atrial Fibrillation -Rate controlled with carvedilol. Patient was on systemic anticoagulation with apixaban did continue 9. Coronary artery disease ? With previous PCI in 2009 patient remains on guideline directed medical therapy 10. Thrombocytopenia ? Appears to be chronic patient platelet count has been ranging from 100-70 since 2002. Daily monitoring with CBC with differential ordered 11. DVT ppx - Not indicated, patient on full dose anticoagulation Time spent in the patient's overall evaluation,decision-making process, review of diagnostic data, adjustment of management, discussion with other providers, nursing nursing and ancillary staff involved in patient's care documentation, 55 Minutes Charges/Coding Visit Charges Inpatient E&M: 30415 Subs Hosp L3 01/07/25 1122 <Electronically signed by Abundio Hurtado MD> Cosigner Signature (if applicable): CC: ~ Signed [facility] Work Phone: [phone]) 679-676205-24-2025 Progress note [facility] Medical Records Department [address] [place] [address] Progress Note - Hospitalist 01/07/25 0934 MR#: [id number] Acct: [id number] Name: VALDO GOMEZ Rep #:[id number] : 1935 89 From: Abundio Hurtado MD PCP: Dr. Tyra Munoz MD Status:AD M IN Location: [place] [address] Reason for Visit Reason for Visit: Diagnoses Heart failure, unspecified (01/06/25) Subjective Subjective Patient is an 89-year-old gentleman with past medical history sent in for coronary artery disease with previous stent placement, paroxysmal atrial fibrillation who presented with progressive shortness of breath. An assessment of acute congestive heart failure made admitted to monitored bed for subsequent management Objective Data Objective Data Vital Signs: Vital Signs Temp Pulse Resp BP Pulse Ox O2 Del Method O2 Flow Rate 97.4 F L 63 18 105/69 100 Nasal Cannula 5 01/07/25 07:57 01/07/25 07:57 01/07/25 07:57 01/07/25 07:57 01/07/25 07:57 01/07/25 07:57 01/07/25 07:57 Oxygen Flow Rate (L/min) 5 Oxygen Delivery Method Nasal Cannula Weight: 87.5 kg Body Mass Index (BMI) 27.6 Intake & Output: Intake and Output for Last 24 Hours 01/05/25 01/06/25 01/07/25 23:59 23:59 23:59 Intake Total 360 / 360 Output Total 400 / 400 650 / 650 Balance -40 / -40 -650 / -650 Lab / Micro Data 01/07/25 04:24 01/07/25 04:24 Labs: Laboratory Results - last 24 hr 01/06/25 14:19: WBC 4.4, RBC 4.36 L, Hgb 15.8, Hct 46.9, MCV 107.6 H, MCH 36.2 H, MCHC 33.7, RDW Std Deviation 60.3 H, RDW Coeff of Yanet 15.0 H, Plt Count 98 L, MPV 10.5, Immature Gran % (Auto) 0.500,Neut % (Auto) 65.5, Lymph % (Auto) 18.1 L, Floyd % (Auto) 13.8 H, Eos % (Auto) 1.6, Baso % (Auto) 0.5, Absolute Neuts (auto) 2.9, Absolute Lymphs (auto) 0.79 L, Nucleated RBC % 0.5, Platelet Estimate SLT DEC, PT 18.1 H, INR 1.5, APTT 41.0 H, Sodium 135, Potassium 3.7, Chloride 96 L, Carbon Dioxide 27.0, Anion Gap 13, BUN 33 H, Creatinine 1.51 H, Estim Creat Clear Calc 38.97 L, Est GFR (MDRD) Non-Af 44 L, BUN/Creatinine Ratio 22.1 H, Glucose 129 H, Calcium 9.4, Troponin T High Sens 65 H* D, NT pro BNP II 9617 H 01/06/25 16:20: Troponin T Hi Sens 4Hr 54 H* 01/06/25 16:45: Troponin T Hi Sens 2 Hr 57 H* 01/07/25 04:24: WBC 4.3 L, RBC 3.66 L, Hgb 13.2, Hct 39.4 L, MCV 107.7 H, MCH 36.1 H, MCHC 33.5, RDW Std Deviation 59.8 H, RDW Coeff of Yanet 15.0 H, Plt Count 76 L, MPV 11.8, Immature Gran % (Auto) 0.200, Neut % (Auto) 59.5, Lymph % (Auto)21.5, Floyd % (Auto) 15.7 H, Eos % (Auto) 2.6, Baso % (Auto) 0.5, Absolute Neuts (auto) 2.5, Absolute Lymphs (auto) 0.92, Nucleated RBC % 0, Sodium 138, Potassium3.0 L, Chloride 98, Carbon Dioxide 30.3, Anion Gap 10, BUN 37 H, Creatinine 1.44 H, Estim Creat Clear Calc 36.61 L, Est GFR (MDRD) Non-Af 47 L, BUN/Creatinine Ratio 25.5 H, Glucose 80, Calcium 8.7 Radiography Diagnostic Testing: Radiology Impression Chest X-Ray 01/06/25 14:20 IMPRESSION: Cardiomegaly with mild congestion. Reading Location: [facility] Brain CT 01/06/25 16:44 IMPRESSION: 1. No acute intracranial abnormality. Senescent changes. 2. Bilateral enophthalmos. 3. Left maxillary sinus disease. Presence of hyperdense contents may be seen with fungal etiology. 4. Punctate foci of air in the region of the cavernous sinuses, which could be related to intravenous access in the absence of trauma. Infection is also possible but statistically less likely. Reading Location: [facility] Physical Exam Narrative GENERAL: cooperative but appears to be hard of hearing HEENT: Atraumatic; normocephalic EYES; Anicteric, Normal Conjunctiva NECK; supple, normal thyroid, RESPIRATORY: Diminished to auscultation CARDIOVASCULAR: Irregularly irregular GI: soft, normoactive bowel sounds, : No Renal angle tenderness; EXTREMITIES: 2+ bipedal edema no clubbing, MUSCULOSKELETAL: no muscle wasting NEURO: Awake; no lateralizing signs. SKIN: No Rash PSYCH; Flat affect Assessment & Plan Assessment/Plan (1) CHF (congestive heart failure): QUALIFIERS: Heart failure chronicity: acute Heart failure type: unspecified Qualified Code(s): I50.9 - Heart failure, unspecified PLAN: Plan Patient is an 89-year-old gentleman with past medical history sent in for coronary artery disease with previous stent placement, paroxysmal atrial fibrillation who presented with progressive shortness of breath. An assessment of acute congestive heart failure made admitted to monitored bed for subsequent management 1. Acute hypoxia ? Secondary to acute congestive heart failure. Admitted to the monitored bed with treatment of the underlying etiology. Placed on oxygen titrated to keep saturation greater than 90. Plan is to assesspatient for home oxygen needs prior to discharge 2. Acute congestive heart failure with reduced ejection fraction ? Patient previous echo from 2016 demonstrated preserved ejection fraction. Echo repeated on 12/18/2024 demonstrated LVEF of 40% with mild to moderate global hypokinesis of the left ventricle. Patient has been admitted to monitored bed manage with strict input and output, daily weight, fluid restriction low-sodium diet as well as diuretic therapy with furosemide 3. Elevated troponin ? Secondary to demand ischemia from fluid overload 4. Chronic kidney disease stage IIIb ? Monitoring kidney function with daily BMPs in view of patient being on furosemide 5. Gout ? Patient is on allopurinol did continue 6. Dyslipidemia ? Patient is on both pravastatin as well as niacin did continue 7. Vision changes in left eye - Patient specifically reports altered depth perception with his left eye but isable to see things without difficulty, given this vague and nonspecific focal complaint will obtain routine CT head to verify no significant abnormalities, suspect patient can have further workup outpatient if this is negative 8. Paroxysmal Atrial Fibrillation -Rate controlled with carvedilol. Patient was on systemic anticoagulation with apixaban did continue 9. Coronary artery disease ? With previous PCI in 2009 patient remains on guideline directed medical therapy 10. Thrombocytopenia ? Appears to be chronic patient platelet count has been ranging from 100-70 since 2002. Daily monitoring with CBC with differential ordered 11. DVT ppx - Not indicated, patient on full dose anticoagulation Time spent in the patient's overall evaluation,decision-making process, review of diagnostic data, adjustment of management, discussion with other providers, nursing nursing and ancillary staff involved in patient's care documentation, 55 Minutes Charges/Coding Visit Charges Inpatient E&M: 55344 Subs Hosp L3 01/07/25 1122 Cosigner Signature (if applicable): CC: ~ Signed [facility]05-23-2025 Progress note Author Ariela Luciano [facility] Note Date/Time January 06, 2025 9:13p m [facility] Medical Records Department [address] [place] [address] Progress Note - Hospitalist 01/06/252030 MR#: [id number] Acct: [id number] Name: VALDO GOMEZ Rep #:[id number] : 1935 89 From: Ariela Luciano MD PCP: Dr. Tyra Munoz MD Status:AD M IN Location: [place] [address] head obtained earlier due to patient's complaint that when he reached for objects they were little bit further than he anticipated but that was not the case if he closed his left eye. CT showed left maxillary sinus disease and presence of hyperdense contents that could be seen with fungal etiology as well as punctate foci of air in the region of the cavernous sinus which could be related to IV access in the absence of trauma, infection is also possible but statistically less likely. Spoke with patient again who again confirms symptomsbeen present about a week and have not improved but have not worsened, he has noheadache, no facial tenderness, no stuffy nose/nasal symptoms, no other visual alterations or other complaints. On exam extraocular movements intact and pupils equal, no tenderness on palpation over sinuses. Despite symptoms being stable over the past week and no overt abnormalities on exam, we have no ENT consultation available until next week so it was discussed with patient regarding possible need for transfer for subspecialist evaluation and ultimately he was agreeable. Spoke with [facility] transfer line who triaged to [facility] in [place]. Spoke with Dr. Holman, hospitalist, who is agreeable to accept patient in transfer if ENT was agreeable and asked if I would speak with ENT. Spoke with Dr. Knight with ENT and went over patient's case including history, presentation, and imaging. 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 He said that this is something that can be evaluated on an outpatient basis and is not something thatemergently needs evaluated and that patient does not require transfer. Informedpatient of this. Given that is still unclear why patient had these vision changes will obtain MRI, if negative will need follow-up with ophthalmology. Advised staff to notify with any concerns or changes. 01/06/252112 <Electronically signed by Ariela Luciano MD> Cosigner Signature (if applicable): CC: ~ Signed [facility] Work Phone: 1(219) 395-496005-23-2025 Progress note [facility] Medical Records Department [address] [place] [address] Progress Note - Hospitalist 01/06/252030 MR#: [id number] Acct: [id number] Name: DOMINGO GOMEZRonal Willis Rep #:[id number] : 1935 89 From: Ariela Luciano MD PCP: Dr. Tyra Munoz MD Status:AD M IN Location: [facility] [id number] head obtained earlier due to patient's complaint that when he reached for objects they were little bit further than he anticipated but that was not the case if he closed his left eye. CT showed left maxillary sinus disease and presence of hyperdense contents that could be seen with fungal etiology as well as punctate foci of air in the region of the cavernous sinus which could be related to IVaccess in the absence of trauma, infection is also possible but statistically less likely. Spoke with patient again who again confirms symptomsbeen present about a week and have not improved but havenot worsened, he has noheadache, no facial tenderness, no stuffy nose/nasal symptoms, no other visual alterations or other complaints. On exam extraocular movements intact and pupils equal, no tenderness on palpation over sinuses. Despite symptoms being stable over the past week and no overt abnormalities on exam, we have no ENT consultation available until next week so it was discussed with patient regarding possible need for transfer for subspecialist evaluation and ultimately he was agreeable. Spoke with [facility] transfer line who triaged to [facility] in [place]. Spoke with , hospitalist, who is agreeable to accept patient in transfer if ENT was agreeable and asked if I would speak with ENT. Spoke with Dr. Knight with ENT and went over patient's case including history, presentation, and imaging. 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 He said that this is something that can be evaluated on an outpatient basis and is not something thatemergently need s evaluated and that patient does not require transfer. Informedpatient of this. Given that is still unclear why patient had these vision changes will obtain MRI, if negative will need follow-up withophthalmology. Advised staff to notify with any concerns or changes. 01/06/252112 Cosigner Signature (if applicable): CC: ~ Signed [facility]05-23-2025 Radiology Diagnostic study note [facility] Imaging Services [address] [place] [address] Brain/Head without Contrast MR#: [id number] Acct: [id number] Name: VALDO GOMEZ Rep #: [id number] : 1935 M 89 From: Suzy Driscoll MD PCP: Dr. Tyra Munoz MD Status: AD M IN Study:Brain/Head without Contrast Date of Exa m: 01/06/25 Exam# [id number] Ordering Dr: Rito Luciano MD PROCEDURE: BRAIN/HEAD WITHOUT CONTRAST 01/06/2025 REASON FOR EXAM: LEFT EYE DEPTH PERCEPTION VISION CHANGE X1 WEEK TECHNIQUE: Head CT without intravenous contrast. Coronal and Sagittal reconstruction serieswere provided. One or more dose reduction techniques were used (e.g., Automated exposure control, adjustment of the mA and/or kV according to patient size, use of iterative reconstruction technique. RADIATION DOSE SUMMARY: CTDlvol: 47.1 mGy DLP: 908 mGycm COMPARISON: None FINDINGS: Brain: No acute intracranial hemorrhage, midline shift, or mass effect. Low density in the periventricular white matter suggests chronic small vessel ischemic changes. CSF Spaces: Advanced generalized cerebral atrophy. Punctate foci of air are present at the cavernous sinus bilaterally. Sinuses/Mastoids: Opacification throughout the left maxillary sinus with hyperdense contents centrally. Bones: No displaced calvarial fracture. Soft tissue debris in the external auditory canals, likely cerumen. Pneumatized petrous apices. Bilateral enophthalmos. Prior cataract extraction bilaterally. CT/Brain/Head without Contrast IMPRESSION: 1. No acute intracranial abnormality. Senescent changes. 2. Bilateral enophthalmos. 3. Left maxillary sinus disease. Presence of hyperdense contents may be seen with fungal etiology. 4. Punctate foci of air in the region of the cavernous sinuses, which could be related to intravenous access in the absence of trauma. Infection is also possible but statistically less likely. Reading Location: [id number] CC: Dr. Tyra Munoz MD; Dr. Ariela Luciano MD ~ [facility] Attendant: Signed [facility]05-23-2025 History and physical note Author Ariela Luciano [facility] Note Date/Time January 06, 2025 3:56p m [facility] Medical Records Department [address] [place] [address] H&P Exam - Hospitalist 01/06/25 1546 MR#: [id number] Acct: [id number] Name: VALDO GOMEZ Rep #:[id number] : 1935 89 From: Ariela Luciano MD PCP: Dr. Tyra Munoz MD Status:RE G ER Location: ED HPI - General General Date of Admission: 01/06/25 Date of Service: 01/06/25 Chief Complaint: Hypoxia HPI Narrative VALDO GOMEZ, is a 89-year-old male history of gout, coronary artery disease, hypertension, A-fib who presented to [facility] ED 01/06/2025 from the cardiology office for evaluation for shortness of breath. Patient noted to have significant leg swelling and had been placed on water pills and thought he was getting better however on arrival to the cardiology office he was 74% on room air and placed on 4 L of O2 at that time and brought to the ED. On arrival to the ED patient afebrile, heart rate 110 with blood pressure 124/74, respiratory rate 26 and pulse ox 94% on 6 L nasal cannula. CBCrevealed white blood cell count of 4.4 and hemoglobin of 15.8 with a platelet count of 9 8With a platelet count of 98. CBC with a BUN of 33 and creatinine of1.51, slightly up from previous but does not meet criteria for TAHIRA. Chest x-raywith cardiomegaly with mild edema, proBNP 9600 and troponin of 65. Patient given IV Lasix for presumed fluid overload/heart failure exacerbation hospitalist contacted for admission. Patient evaluated with multiple family members at bedside. Reportedly since October patient's had increased shortness ofbreath on exertion and increased swelling in lower extremities, he was seen on 07 December and diagnosed with A-fib and placed on Lasix and Eliquis, PCP increasedhis Lasix 12 days ago and he thought he was doing better however was found to behypoxic at the cardiology office and sent to the ED. He reports no shortness ofbreath while resting in the ED and that his swelling is better than it was. Denies any chest pain. Only other complaint is that for at least a week his left eye has had some change in depth perception and he feels like objects are closer than they seem when he reaches for them, closing his left eye resolves this. [facility] Medical History (Updated 01/06/25 @ 15:[address] Bret Victoria DO) Atherosclerosis of coronary artery of [place] heart without angina pectoris Gout Hyperlipidemia Hypertension Old inferior wall myocardial infarction Home Medications ?Medication ?Instructions ?Recorded ?Last Taken ?Type allopurinol 300 mg tablet 300 mg PO DAILY 09/13/17 History amoxicillin 500 mg tablet 2,000 mg PO DAILY PRN DENTIS T 09/13/17 Unknown History bimatoprost 0.01 % eye drops 1 drp ophthalmic (eye) QH S 09/13/17 12/07/24 History (Lumigan) carvedilol 3.125 mg tablet (Coreg) 3.125 mg PO BID 12/07/24 History [id number]-[id number] 300 mcg-K 60 1 tab PO DAILY 09/13/17 12/07/24 History mcg-lycop 600 mcg-lutein 300 mcg tablet (Centrum Silver Men) niacin 500 mg tablet,extended 500 mg PO QHS 09/13/17 0 12/06/24 History release 24 hr (Niaspan) nitroglycerin 0.4 mg sublingual 0.4 mg sublingual Q5-1 5M PRN chest 09/13/17 Unknown History tablet pain pravastatin 20 mg tablet 20 mg PO QHS 09/14/17 History brinzolamide 1 %-brimonidine 0.2 % 1 drp ophthalmic (e ye) BID 02/10/19 Unknown History eye drops,suspension (Simbrinza) apixaban 2.5 mg tablet (Eliquis) 2.5 mg PO BID #60 tab s 12/07/24 Unknown Rx lutein 10 mg tablet 10 mg PO DAILY 12/07/2411/16 History aspirin 81 mg tablet 81 mg PO QDAY 01/06/25 Unkno wn History furosemide 40 mg tablet 80 mg PO DAILY 01/06/25 Unkn own History Allergy/AdvReac Type Severity Reaction Status Date / Time SHARON Inhibitors AdvReac Hypotensive Verified 01/06/25 13:08 Family History Mother , AGe 71 Congestive heart failure Sister , Age 66 CAD (coronary artery disease) Breast cancer S/P CABG (coronary artery bypass graft) Surgical History H/O bilateral hip replacements H/O bilateral inguinal hernia repair H/O right coronary artery stent placement (06/13/10) Social History household members: spouse housing: house current occupational status: retired Smoking Status: Never smoker ROS ROS Narrative General: Denies fever/chills HENT: Denies headache, denies stuffy nose, denies sore throat EYES: Has some vision changes in his left eye for about a week Resp: Denies cough, shortness of breath particularly on exertion Cardiac: Denies chest pain GI: Denies abdominal pain, denies changes in bowel, denies nausea/vomiting : Denies changes in urination Extremity: Swelling in bilateral lower extremities MSK: Denies weakness Neuro: Denies any numbness/tingling Heme: Easy bruising Skin: Denies rashes Psychiatric: No complaints voiced Vital Signs Vital Signs Vital Signs: 01/06/25 13:44 01/06/25 14:13 01/06/25 14:21 Temperature 96.9 F L Temperature Source Temporal Pulse Rate 110 H 82 Respiratory Rate 26 H 24 H Respiratory Effort Respiratory Depth Respiratory Pattern Blood Pressure 124/74 H Blood Pressure Mean 90 Pulse Ox 94 98 100 Oxygen Delivery Method Nasal Cannula Nasal Cannula Nasal Cannula Oxygen Flow Rate (L/min) 6 5 5 01/06/25 14:30 01/06/25 14:35 01/06/25 15:00 Temperature Temperature Source Pulse Rate 80 78 Respiratory Rate 22 H 19 H Respiratory Effort Short of Breath Respiratory Depth Normal Respiratory Pattern Tachypnea Blood Pressure 113/89 H 99/78 Blood Pressure Mean 97 86 Pulse Ox 100 Oxygen Delivery Method Nasal Cannula Nasal Cannula Oxygen Flow Rate (L/min) 5 3 01/06/25 15:30 01/06/25 15:33 Temperature 98.2 F Temperature Source Pulse Rate 84 84 Respiratory Rate 20 H 20 H Respiratory Effort Respiratory Depth Respiratory Pattern Blood Pressure 107/79 107/79 Blood Pressure Mean 89 88 Pulse Ox 98 Oxygen Delivery Method Oxygen Flow Rate (L/min) Weight Weight: 94.2 kg Body Mass Index (BMI) 29.7 Physical Exam Narrative General: Alert, oriented, no apparent distress HEENT: Atraumatic, normocephalic Eyes: Anicteric, normal conjunctiva Neck: Supple Respiratory: Diminished bilaterally, conversational dyspnea Cardiovascular: Irregularly irregular GI: Soft, nontender, nondistended Extremities: 2+ lower extremity pitting edema Musculoskeletal: Moving all extremities Neuro: No overt focal neurological deficits apparent at time of exam Skin: No rashes appreciated Psych: Cooperative Results Lab / Micro Data 01/06/25 14:19 01/06/25 14:19 Labs: Laboratory Results - last 24 hr 01/06/25 14:19: WBC 4.4, RBC 4.36 L, Hgb 15.8, Hct 46.9, MCV 107.6 H, MCH 36.2 H, MCHC 33.7, RDW Std Deviation 60.3 H, RDW Coeff of Yanet 15.0 H, Plt Count 98 L, MPV 10.5, Immature Gran % (Auto) 0.500, Neut % (Auto) 65.5, Lymph % (Auto) 18.1 L, Floyd % (Auto) 13.8 H, Eos % (Auto) 1.6, Baso % (Auto) 0.5, Absolute Neuts (auto) 2.9, Absolute Lymphs (auto) 0.79 L, Nucleated RBC % 0.5, PT 18.1 H, INR 1.5, APTT 41.0 H, Sodium 135, Potassium 3.7, Chloride 96 L, Carbon Dioxide 27.0,Anion Gap 13, BUN 33 H, Creatinine 1.51 H, Estim Creat Clear Calc 38.97 L, Est GFR (MDRD) Non-Af 44 L, BUN/Creatinine Ratio 22.1 H, Glucose 129 H, Calcium 9.4,Troponin T High Sens 65 H* D, NT pro BNP II 9617 H Imaging Radiology Impression Chest X-Ray 01/06/25 14:20 IMPRESSION: Cardiomegaly with mild congestion. Reading Location: [facility] Assessment & Plan Assessment/Plan (1) CHF (congestive heart failure): QUALIFIERS: Heart failure type: unspecified Heart failure chronicity: acute Qualified Code(s): I50.9 - Heart failure, unspecified PLAN: Plan # Hypoxia secondary to fluid overload, suspect heart failure exacerbation of unclear subtype, did have diastolic dysfunction in 2017 so suspect heart failurewith preserved ejection fraction exacerbation -Admit to telemetry -proBNP 9000 -CXR cardiomegaly with mild congestion -Continue IV lasix -Last echo 2017 with stage I diastolic dysfunction and normal EF -Repeat echo ordered -Daily weights, I's and O's -Fluid restriction, heart healthy diet #Elevated troponin - Troponin of 65 -No chest pain -Suspect this is all secondary to fluid overload # CKD stage III b - Slightly up from previous but does not meet criteria for an TAHIRA, suspect this is around baseline but will continue to trend BMP -Avoid nephrotoxic agents -Daily BMPs #Vision changes in left eye - Patient specifically reports altered depth perception with his left eye but isable to see things without difficulty, given this vague and nonspecific focal complaint will obtain routine CT head to verify no significant abnormalities, suspect patient can have further workup outpatient if this is negative #Paroxysmal Atrial Fibrillation -Rate control: Carvedilol -Anticoagulation: Eliquis #Hx of CAD -w/ previous stenting in 2009 after cardiac arrest -Continue home medications #Gout -Continue home allopurinol CODE status: Discussed CODE status at length including difference between FULL code, DNR-CCA, and DNR-CC status. Following discussions about the differences inthese status, requested DO NOT RESUSCITATE but okay for intubation. Advanced Care Planning Face to Face Time: 20 minutes. #DVT ppx: Not indicated, patient on full dose anticoagulation Ariela Luciano MD Charges/Coding Multi Select Codes Visit Charges Visit Charges: 77882 Init Hosp L2 Hospitalists' Procedures Procedures: 24086 Advncd Care Plan 30 Min 01/06/25 1556 <Electronically signed by Ariela Luciano MD> Cosigner Signature (if applicable): CC: Dr. Tyra Munoz MD; Dr. Ariela Luciano MD~ Signed [facility] Work Phone: 1(426) 347-166705-23-2025 Evaluation note* Diagnosis Onset Date Resolution Status Admit Date Atrial fibrillation, controlled acut e January 06, 2025 3:46pm CHF (congestive heart failure) acute January 06, 2025 3:46pm Elevated troponin acute December 3:46pm Hypoxia acute January 06, 2025 3:46pm CKD (chronic kidney disease) , stage III chronic January 06, 2025 3 :46pm [facility] Work Phone: 1(364) 474-974105-23-2025 Evaluation note* Diagnosis Onset Date Resolution Status Admit Date Atrial fibrillation, controlled acut e January 06, 2025 3:46pm CHF (congestive heart failure) acute January 06, 2025 3:46pm CKD (chronic kidney disease) , stage III chronic January 06, 2025 3 :46pm Elevated troponin resolved December 3:46pm Hypoxia resolved January 06, 2025 3:46pm CKD (chronic kidney disease) , stage III chronic January 27, 2025 3:32pm [facility] Work Phone: 1(955) 124-650505-23-2025 Evaluation note* Diagnosis Onset Date Resolution Status Admit Date Atrial fibrillation, controlled acut e January 06, 2025 3:46pm CHF (congestive heart failure) acute January 06, 2025 3:46pm CKD (chronic kidney disease) , stage III chronic January 06, 2025 3 :46pm Elevated troponin resolved December 3:46pm Hypoxia resolved January 06, 2025 3:46pm CKD (chronic kidney disease) , stage III chronic January 27, 2025 3:32pm UTI (urinary tract infection) acute February 09, 2025 3:37pm [facility] Work Phone: 1([phone] 435-432505-23-2025 Evaluation note* Diagnosis Onset Date Resolution Status Admit Date Atrial fibrillation, controlled acute January 06, 2025 3:46pm CHF (congestive heart failure) acute January 06, 2025 3:46pm CKD (chronic kidney disease), stage III chronic January 06 3:46pm Elevated troponin resolved December 3:46pm Hypoxia resolved January 06, 2025 3:46pm Atrial fibrillation, controlled acute January 27, 2025 3:32pm Heart failure with preserved ejection fraction acute January 27 3:32pm H/O right coronary artery stent placement June 13, 2010 chronic January 27 3:32pm Hypertension chronic January 27, 025 3:32pm UTI (urinary tract infection) inactive February 09, 2025 3:37pm Atrial fibrillation, controlled acute February 15, 2025 3:03pm CHF (congestive heart failure) acute February 15, 2025 3:03pm Malnutrition acute February 15 3:03pm Atherosclerosis of coronary artery of [place] without angina pectoris chronic February 3:03pm CKD (chronic kidney disease), stage III chronic February 15 3:03pm Hyperlipidemia chronic February 15, 2025 3:03pm Hypertension chronic February 15 3:03pm CHF (congestive heart failure) acute February 27, 2025 5:53pm Diarrhea acute February 27 5:53pm Generalized weakness acute February 27, 2025 5:53pm Malnutrition acute February 27 5:53pm [facility] Work Phone: 1(286) 855-898705-23-2025 Discharge summary Author Bret Victoria [facility] Note Date/Time January 06, 2025 3:30p m [facility] Medical Records Department [address] [place] [address] Emergency Department Summary 01/06/25 MR#: [id number] Acct: [id number] Name: VALDO GOMEZ Rep #:[id number] : 1935 89 From: Bret Mckeon PCP: Dr. Tyra Munoz MD Status:RE G ER Location: ED HPI History of Present Illness Chief Complaint: Shortness of Breath Informant: patient, family and other (Dr. Wong, cardiology) Narrative Narrative: Patient sent down from cardiology office for evaluation admission. Dr. Wong came out of the department. Patient follow-up from the ED visit on December 07. He had significant leg swelling with put on water pills clinically stay was getting better however arrival to the office he was 74% on room air. He was placed on 4 L in the office. EKG with A-fib similar from his previous. Family present states less activity since his ED visit. He is on water pills 2 tabs daily. States leg swelling much more improved from previous. Denies orthopnea. Denies cough. Denies chest pains. He had a heart stent in 2009. Per cardiology EF was normal in 2017. Patient reports he was started on Eliquis on his last ED visit. [facility] Medical History (Updated 01/06/25 @ 15:[address] Bret Victoria, DO) Gout Atherosclerosis of coronary artery of [place] heart without angina pectoris Hypertension Hyperlipidemia Old inferior wall myocardial infarction Home Medications ?Medication ?Instructions ?Recorded ?Last Taken ?Type allopurinol 300 mg tablet 300 mg PO DAILY 09/13/17 History amoxicillin 500 mg tablet 2,000 mg PO DAILY PRN DENTIS T 09/13/17 Unknown History bimatoprost 0.01 % eye drops 1 drp ophthalmic (eye) QH S 09/13/17 12/07/24 History (Lumigan) carvedilol 3.125 mg tablet (Coreg) 3.125 mg PO BID 12/07/24 History jewjwpzl-zf-[id number] 300 mcg-K 60 1 tab PO DAILY 09/13/17 12/07/24 History mcg-lycop 600 mcg-lutein 300 mcg tablet (Centrum Silver Men) niacin 500 mg tablet,extended 500 mg PO QHS 09/13/17 0 12/06/24 History release 24 hr (Niaspan) nitroglycerin 0.4 mg sublingual 0.4 mg sublingual Q5-1 5M PRN chest 09/13/17 Unknown History tablet pain pravastatin 20 mg tablet 20 mg PO QHS 09/14/17 History brinzolamide 1 %-brimonidine 0.2 % 1 drp ophthalmic (e ye) BID 02/10/19 Unknown History eye drops,suspension (Simbrinza) apixaban 2.5 mg tablet (Eliquis) 2.5 mg PO BID #60 tab s 12/07/24 Unknown Rx lutein 10 mg tablet 10 mg PO DAILY 12/07/2411/16 History aspirin 81 mg tablet 81 mg PO QDAY 01/06/25 Unkno wn History furosemide 40 mg tablet 80 mg PO DAILY 01/06/25 Unkn own History Allergy/AdvReac Type Severity Reaction Status Date / Time SHARON Inhibitors AdvReac Hypotensive Verified 01/06/25 13:08 Family History Mother , AGe 71 Congestive heart failure Sister , Age 66 CAD (coronary artery disease) Breast cancer S/P CABG (coronary artery bypass graft) Surgical History H/O bilateral inguinal hernia repair H/O bilateral hip replacements H/O right coronary artery stent placement (06/13/10) Social History household members: spouse housing: house current occupational status: retired Smoking Status: Never smoker ROS ROS ED Constitutional Constitutional ED: Denies chills, fever(s) or sweats ENT ENT ED: Denies sore throat Cardiovascular Cardiovascular: Reports leg edema; Denies chest pain, palpitations or racing heartbeat Respiratory/Chest Respiratory/Chest: Reports dyspnea and dyspnea on exertion; Denies cough Gastrointestinal Gastrointestinal: Denies abdominal pain, diarrhea, nausea or vomiting Genitourinary Genitourinary ED: Denies dysuria, hematuria or urinary frequency Musculoskeletal Musculoskeletal: Denies back pain, extremity pain or neck pain Integumentary Denies rash or wounds Neurologic Neurologic: Denies headache(s), paresthesias or weakness EXAM Physical Exam Const Vital Signs: 01/06/25 13:44 01/06/25 14:13 01/06/25 14:21 Temperature 96.9 F L Temperature Source Temporal Pulse Rate 110 H 82 Respiratory Rate 26 H 24 H Respiratory Effort Respiratory Depth Respiratory Pattern Blood Pressure 124/74 H Blood Pressure Mean 90 Pulse Ox 94 98 100 Oxygen Delivery Method Nasal Cannula Nasal Cannula Nasal Cannula Oxygen Flow Rate (L/min) 6 5 5 01/06/25 14:30 01/06/25 14:35 01/06/25 15:00 Temperature Temperature Source Pulse Rate 80 78 Respiratory Rate 22 H 19 H Respiratory Effort Short of Breath Respiratory Depth Normal Respiratory Pattern Tachypnea Blood Pressure 113/89 H 99/78 Blood Pressure Mean 97 86 Pulse Ox 100 Oxygen Delivery Method Nasal Cannula Nasal Cannula Oxygen Flow Rate (L/min) 5 3 Positive well nourished and well developed Constitutional Narrative: 6 L nasal cannula, no respiratory distress. General Appearance ED: well developed and NAD HEENT Reports moist mucous membranes normocephalic and atraumatic Eyes General Eye ED: Yes normal appearance of both eyes Neck full ROM Chest Wall Chest: Negative for tenderness Resp normal respiratory effort and normal air movement Effort and Inspection: symmetric chest movement; Negative for respiratory distress Cardio regular rate and no murmurs Peripheral Pulses: pulses 2+ throughout GI normal to inspection, nondistended, normoactive bowel sounds and non-tender Palpation: Negative for guarding or rebound tenderness present Extremity normal to inspection Extremity Narrative: 1+ lower extremity edema. General Extremety ED: Yes edema; Negative for tenderness General Extremity: edema Neuro oriented x3 and no sensory deficits noted Sensorium / Orientation: awake and alert Skin no rashes or lesions noted and no wounds MDM MDM MDM Narrative Medical decision making narrative: Interventions / MDM: Differential diagnosis: Congestive heart failure, atrial fibrillation, hypoxia, elevated troponin Diagnosis considered but do not suspect: Pulmonary embolism however on anticoagulation and compliant. My EKG interpretation: Rate controlled A-fib 82, no ST changes PVC left bundle branch block. Similar findings from EKG December 07, 2024. Imaging independently reviewed and interpreted by myself: 1 view chest x-ray: Vascular congestion also read by radiology. External documents reviewed: ED visit December 07, 2024. New onset A-fib rate controlled. Heart failure. Discussion with cardiology in department Lasix to 40 mg daily along with Eliquis 2.5 mg twice daily.. Test considered but not ordered:N/A ED course: Patient currently on 6 L nasal cannula due to hypoxia, Which is new. Clinically reporting overall symptoms seem to be improved on the diuretics. EKGwith rate controlled A-fib. Will check chest x-ray will check labs. Patient will need admission due to hypoxia. 1515: Labs stable creatinine at 1.5 GFR of 39. Hemoglobin 15.8. White count 4.4. BNP 9617. Chest x-ray with vascular congestion. Given IV Lasix of 40 mg. Troponin elevated at 65 a month ago it was in the 40s. No chest pains. I did give him 2 baby aspirin's. He is on Eliquis with last dose this morning. I discussed with hospitalist Dr. Luciano for admission to PCU. Re-evaluation: stable Disposition discussed with patient/family/significant other: Patient and family Case discussed with consulting clinician: Hospitalist This note was generated with [employer] dictation software. It may contain incorrectwords, spelling, and punctuation that were not noted in checking the note beforesigning. Lab Data Attestation: I reviewed the patient's lab results. Labs: Laboratory Results - last 24 hr 01/06/25 14:19 WBC 4.4 RBC 4.36 L Hgb 15.8 Hct 46.9 MCV 107.6 H MCH 36.2 H MCHC 33.7 RDW Std Deviation 60.3 H RDW Coeff of Yanet 15.0 H Plt Count 98 L MPV 10.5 Immature Gran % (Auto) 0.500 Neut % (Auto) 65.5 Lymph % (Auto) 18.1 L Floyd % (Auto) 13.8 H Eos % (Auto) 1.6 Baso % (Auto) 0.5 Absolute Neuts (auto) 2.9 Absolute Lymphs (auto) 0.79 L Nucleated RBC % 0.5 PT 18.1 H INR 1.5 APTT 41.0 H Sodium 135 Potassium 3.7 Chloride 96 L Carbon Dioxide 27.0 Anion Gap 13 BUN 33 H Creatinine 1.51 H Estim Creat Clear Calc 38.97 L Est GFR (MDRD) Non-Af 44 L BUN/Creatinine Ratio 22.1 H Glucose 129 H Calcium 9.4 Troponin T High Sens 65 H* D NT pro BNP II 9617 H Radiography Diagnostic Testing: Clinical Impression(s) from Imaging Studies Chest X-Ray 01/06/25 14:20 IMPRESSION: Cardiomegaly with mild congestion. Reading Location: [facility] Discharge Plan Triage Chief Complaint: Shortness of Breath ED Provider: Bret Victoria Dx/Rx/DC Orders Clinical Impression: CHF (congestive heart failure), Hypoxia, Atrial fibrillation, controlled, Elevated troponin, CKD (chronic kidney disease), stage III Prescriptions: No Action pravastatin 20 mg tablet 20 mg PO QHS allopurinol 300 mg tablet 300 mg PO DAILY nitroglycerin 0.4 mg tablet, sublingual 0.4 mg SUBLINGUAL Q5-15M PRN (Reason: chest pain) niacin [Niaspan Extended-Release] 500 mg tablet extended release 24 hr 500 mg PO QHS carvedilol [Coreg] 3.125 mg tablet 3.125 mg PO BID amoxicillin 500 mg tablet 2,000 mg PO DAILY PRN (Reason: DENTIST) Patient Comments: 30-60 minutes prior to dental procedure Lumigan 0.01 % drops 1 drp OPHTHALMIC QHS Rx Instructions: 1 DROP IN BOTH EYES Centrum Silver Men 300-600-300 mcg tablet 1 tab PO DAILY Simbrinza 1-0.2 % drops,suspension 1 drp OPHTHALMIC BID aspirin 81 mg tablet 81 mg PO QDAY furosemide 40 mg tablet 80 mg PO DAILY lutein 10 mg tablet 10 mg PO DAILY Rx Instructions: give with meal/snack Eliquis 2.5 mg tablet 2.5 mg PO BID Qty: 60 0RF Primary Care Provider: Tyra Munoz Referrals: Tyra Munoz MD [Primary Care Provider] - Print Language: Somali Disposition Disposition: Acute Care Hospital [facility] What to do if you have Problems For any increased pain, shortness of breath, bleeding, nausea or vomiting, chestpain, or any unexpected problems, contact your Primary Care Provider. Call [facility] ([phone]) or report to the closest Emergency Room. Call 911 if necessary. 01/06/25 1530 <Electronically signed by Bret Mckeon> Cosigner Signature (if applicable): CC: Dr. Tyra Munoz MD ~ Signed [facility] Work Phone: [phone] 720-342405-23-2025 History and physical note [facility] Medical Records Department [address] [place] [address] H&P Exam - Hospitalist 01/06/25 1546 MR#: [id number] Acct: [id number] Name: VALDO GOMEZ Rep #:[id number] : 1935 89 From: Ariela Luciano MD PCP: Dr. Tyra Munoz MD Status:RE G ER Location: ED HPI - General General Date of Admission: 01/06/25 Date of Service: 01/06/25 Chief Complaint: Hypoxia HPI Narrative VALDO GOMEZ, is a 89-year-old male history of gout, coronary artery disease, hypertension, A-fib who presented to [facility] ED 01/06/2025 from the cardiology office for evaluation for shortness of breath. Patient noted to have significant leg swelling and had been placed on water pills and thought he was getting better however on arrival to the cardiology office he was 74% onroom air and placed on 4 L of O2 at that time and brought to the ED. On arrival to the ED patient afebrile, heart rate 110 with blood pressure 124/74, respiratory rate 26 and pulse ox 94% on 6 L nasal cannula. CBCrevealed white blood cell count of 4.4 and hemoglobin of 15.8 with a platelet count of9 8With a platelet count of 98. CBC with a BUN of 33 and creatinine of1.51, slightly up from previous but does not meet criteria for TAHIRA. Chest x- raywith cardiomegaly with mild edema, proBNP 9600 andtroponin of 65. Patient given IV Lasix for presumed fluid overload/heart failure exacerbation hospit alist contacted for admission. Patient evaluated with multiple family members at bedside. Reportedly since October patient's had increased shortness ofbreath on exertion and increased swelling in lowerextremities, he was seen on 07 December and diagnosed with A-fib and placed on Lasix and Eliquis, PCP increasedhis Lasix 12 days ago and he thought he was doing better however was found to behypoxic at [facility] cardiology office and sent to the ED. He reports no shortness ofbreath while resting in the ED and that his swelling is better than it was. Denies any chest pain. Only other complaint is that for at least a week his left eye has had some change in depth perception and he feels like objects are closer than they seem when he reaches for them, closing his left eye resolves this. [facility] Medical History (Updated 01/06/25 @ 15:[address] Bret Victoria, DO) Atherosclerosis of coronary artery of [place] heart without angina pectoris Gout Hyperlipidemia Hypertension Old inferior wall myocardial infarction Home Medications ?Medication ?Instructions ?Recorded ?Last Taken ?Type allopurinol 300 mg tablet 300 mg PO DAILY 09/13/17 History amoxicillin 500 mg tablet 2,000 mg PO DAILY PRN DENTIS T 09/13/17 Unknown History bimatoprost 0.01 % eye drops 1 drp ophthalmic (eye) QH S 09/13/17 12/07/24 History (Lumigan) carvedilol 3.125 mg tablet (Coreg) 3.125 mg PO BID 12/07/24 History pbuslawi-ev-nwjva 300 mcg-K 60 1 tab PO DAILY 09/13/17 12/07/24 History mcg-lycop 600 mcg-lutein 300 mcg tablet (Centrum Silver Men) niacin 500 mg tablet,extended 500 mg PO QHS 09/13/17 0 12/06/24 History release 24 hr (Niaspan) nitroglycerin 0.4 mg sublingual 0.4 mg sublingual Q5-1 5M PRN chest 09/13/17 Unknown History tablet pain pravastatin 20 mg tablet 20 mg PO QHS 09/14/17 History brinzolamide 1 %-brimonidine 0.2 % 1 drp ophthalmic (e ye) BID 02/10/19 Unknown History eye drops,suspension (Simbrinza) apixaban 2.5 mg tablet (Eliquis) 2.5 mg PO BID #60 tab s 12/07/24 Unknown Rx lutein 10 mg tablet 10 mg PO DAILY 12/07/2411/16 History aspirin 81 mg tablet 81 mg PO QDAY 01/06/25 Unkno wn History furosemide 40 mg tablet 80 mg PO DAILY 01/06/25 Unkn own History Allergy/AdvReac Type Severity Reaction Status Date / Time SHARON Inhibitors AdvReac Hypotensive Verified 01/06/25 13:08 Family History Mother , AGe 71 Congestive heart failure Sister , Age 66 CAD (coronary artery disease) Breast cancer S/P CABG (coronary artery bypass graft) Surgical History H/O bilateral hip replacements H/O bilateral inguinal hernia repair H/O right coronary artery stent placement (06/13/10) Social History household members: spouse housing: house current occupational status: retired Smoking Status: Never smoker ROS ROS Narrative General: Denies fever/chills HENT: Denies headache, denies stuffy nose, denies sore throat EYES: Has some vision changes in his left eye for about a week Resp: Denies cough, shortness of breath particularly on exertion Cardiac: Denies chest pain GI: Denies abdominal pain, denies changes in bowel, denies nausea/vomiting : Denies changes in urination Extremity: Swelling in bilateral lower extremities MSK: Denies weakness Neuro: Denies any numbness/tingling Heme: Easy bruising Skin: Denies rashes Psychiatric: No complaints voiced Vital Signs Vital Signs Vital Signs: 01/06/25 13:44 01/06/25 14:13 01/06/25 14:21 Temperature 96.9 F L Temperature Source Temporal Pulse Rate 110 H 82 Respiratory Rate 26 H 24 H Respiratory Effort Respiratory Depth Respiratory Pattern Blood Pressure 124/74 H Blood Pressure Mean 90 Pulse Ox 94 98 100 Oxygen Delivery Method Nasal Cannula Nasal Cannula Nasal Cannula Oxygen Flow Rate (L/min) 6 5 5 01/06/25 14:30 01/06/25 14:35 01/06/25 15:00 Temperature Temperature Source Pulse Rate 80 78 Respiratory Rate 22 H 19 H Respiratory Effort Short of Breath Respiratory Depth Normal Respiratory Pattern Tachypnea Blood Pressure 113/89 H 99/78 Blood Pressure Mean 97 86 Pulse Ox 100 Oxygen Delivery Method Nasal Cannula Nasal Cannula Oxygen Flow Rate (L/min) 5 3 01/06/25 15:30 01/06/25 15:33 Temperature 98.2 F Temperature Source Pulse Rate 84 84 Respiratory Rate 20 H 20 H Respiratory Effort Respiratory Depth Respiratory Pattern Blood Pressure 107/79 107/79 Blood Pressure Mean 89 88 Pulse Ox 98 Oxygen Delivery Method Oxygen Flow Rate (L/min) Weight Weight: 94.2 kg Body Mass Index (BMI) 29.7 Physical Exam Narrative General: Alert, oriented, no apparent distress HEENT: Atraumatic, normocephalic Eyes: Anicteric, normal conjunctiva Neck: Supple Respiratory: Diminished bilaterally, conversational dyspnea Cardiovascular: Irregularly irregular GI: Soft, nontender, nondistended Extremities: 2+ lower extremity pitting edema Musculoskeletal: Moving all extremities Neuro: No overt focal neurological deficits apparent at time of exam Skin: No rashes appreciated Psych: Cooperative Results Lab / Micro Data 01/06/25 14:19 01/06/25 14:19 Labs: Laboratory Results - last 24 hr 01/06/25 14:19: WBC 4.4, RBC 4.36 L, Hgb 15.8, Hct 46.9, MCV 107.6 H, MCH 36.2 H, MCHC 33.7, RDW Std Deviation 60.3 H, RDW Coeff of Yanet 15.0 H, Plt Count 98 L, MPV 10.5, Immature Gran % (Auto) 0.500,Neut % (Auto) 65.5, Lymph % (Auto) 18.1 L, Floyd % (Auto) 13.8 H, Eos % (Auto) 1.6, Baso % (Auto) 0.5, Absolute Neuts (auto) 2.9, Absolute Lymphs (auto) 0.79 L, Nucleated RBC % 0.5, PT 18.1 H, INR 1.5, APTT 41.0 H, Sodium 135, Potassium 3.7, Chloride 96 L, Carbon Dioxide 27.0,Anion Gap 13, BUN 33 H,Creatinine 1.51 H, Estim Creat Clear Calc 38.97 L, Est GFR (MDRD) Non-Af 44 L, BUN/Creatinine Ratio22.1 H, Glucose 129 H, Calcium 9.4,Troponin T High Sens 65 H* D, NT pro BNP II 9617 H Imaging Radiology Impression Chest X-Ray 01/06/25 14:20 IMPRESSION: Cardiomegaly with mild congestion. Reading Location: [facility] Assessment & Plan Assessment/Plan (1) CHF (congestive heart failure): QUALIFIERS: Heart failure type: unspecified Heart failure chronicity: acute Qualified Code(s): I50.9 - Heart failure, unspecified PLAN: Plan # Hypoxia secondary to fluid overload, suspect heart failure exacerbation of unclear subtype, did have diastolic dysfunction in 2017 so suspect heart failurewith preserved ejection fraction exacerbation -Admit to telemetry -proBNP 9000 -CXR cardiomegaly with mild congestion -Continue IV lasix -Last echo 2017 with stage I diastolic dysfunction and normal EF -Repeat echo ordered -Daily weights, I's and O's -Fluid restriction, heart healthy diet #Elevated troponin - Troponin of 65 -No chest pain -Suspect this is all secondary to fluid overload # CKD stage III b - Slightly up from previous but does not meet criteria for an TAHIRA, suspect this is around baseline but will continue to trend BMP -Avoid nephrotoxic agents -Daily BMPs #Vision changes in left eye - Patient specifically reports altered depth perception with his left eye but isable to see things without difficulty, given this vague and nonspecific focal complaint will obtain routine CT head to verify no significant abnormalities, suspect patient can have further workup outpatient if this is negative #Paroxysmal Atrial Fibrillation -Rate control: Carvedilol -Anticoagulation: Eliquis #Hx of CAD -w/ previous stenting in 2009 after cardiac arrest -Continue home medications #Gout -Continue home allopurinol CODE status: Discussed CODE status at length including difference between FULL code, DNR-CCA, and DNR-CC status. Following discussions about the differences inthese status, requested DO NOT RESUSCITATE but okay for intubation. Advanced Care Planning Face to Face Time: 20 minutes. #DVT ppx: Not indicated, patient on full dose anticoagulation Ariela Luciano MD Charges/Coding Multi Select Codes Visit Charges Visit Charges: 61450 Init Hosp L2 Hospitalists' Procedures Procedures: 14313 Advncd Care Plan 30 Min 01/06/25 1556 Cosigner Signature (if applicable): CC: Dr. Tyra Munoz MD; Dr. Ariela Luciano MD~ Signed [facility]05-23-2025 Discharge summary [facility] Medical Records Department [address] [place] [address] Emergency Department Summary 01/06/25 MR#: [id number] Acct: [id number] Name: VALDO GOMEZ Rep #:[id number] : 1935 89 From: Bret Mckeon PCP: Dr. Tyra Munoz MD Status:RE G ER Location: ED HPI History of Present Illness Chief Complaint: Shortness of Breath Informant: patient, family and other (Dr. Wong, cardiology) Narrative Narrative: Patient sent down from cardiology office for evaluation admission. Dr. Wong came out of the department. Patient follow-up from the ED visit on December 07. He had significant leg swelling with put on water pills clinically stay was getting better however arrival to the office he was 74% on room air.He was placed on 4 L in the office. EKG with A-fib similar from his previous. Family present states less activity since his ED visit. He is on water pills 2 tabs daily. States leg swelling much more improved from previous. Denies orthopnea. Denies cough. Denies chest pains. He had a heart stent in 2010. Per cardiology EF was normal in 2017. Patient reports he was started on Eliquis on his last EDvisit. [facility] Medical History (Updated 01/06/25 @ 15:[address] Bret Victoria DO) Gout Atherosclerosis of coronary artery of [place] heart without angina pectoris Hypertension Hyperlipidemia Old inferior wall myocardial infarction Home Medications ?Medication ?Instructions ?Recorded ?Last Taken ?Type allopurinol 300 mg tablet 300 mg PO DAILY 09/13/17 History amoxicillin 500 mg tablet 2,000 mg PO DAILY PRN DENTIS T 09/13/17 Unknown History bimatoprost 0.01 % eye drops 1 drp ophthalmic (eye) QH S 09/13/17 12/07/24 History (Clau) carvedilol 3.125 mg tablet (Coreg) 3.125 mg PO BID 12/07/24 History joqybdvw-fh-cxyzq 300 mcg-K 60 1 tab PO DAILY 09/13/17 12/07/24 History mcg-lycop 600 mcg-lutein 300 mcg tablet (Centrum Silver Men) niacin 500 mg tablet,extended 500 mg PO QHS 09/13/17 0 12/06/24 History release 24 hr (Niaspan) nitroglycerin 0.4 mg sublingual 0.4 mg sublingual Q5-1 5M PRN chest 09/13/17 Unknown History tablet pain pravastatin 20 mg tablet 20 mg PO QHS 09/14/17 History brinzolamide 1 %-brimonidine 0.2 % 1 drp ophthalmic (e ye) BID 02/10/19 Unknown History eye drops,suspension (Simbrinza) apixaban 2.5 mg tablet (Eliquis) 2.5 mg PO BID #60 tab s 12/07/24 Unknown Rx lutein 10 mg tablet 10 mg PO DAILY 12/07/2411/16 History aspirin 81 mg tablet 81 mg PO QDAY 01/06/25 Unkno wn History furosemide 40 mg tablet 80 mg PO DAILY 01/06/25 Unkn own History Allergy/AdvReac Type Severity Reaction Status Date / Time SHARON Inhibitors AdvReac Hypotensive Verified 01/06/25 13:08 Family History Mother , AGe 71 Congestive heart failure Sister , Age 66 CAD (coronary artery disease) Breast cancer S/P CABG (coronary artery bypass graft) Surgical History H/O bilateral inguinal hernia repair H/O bilateral hip replacements H/O right coronary artery stent placement (06/13/10) Social History household members: spouse housing: house current occupational status: retired Smoking Status: Never smoker ROS ROS ED Constitutional Constitutional ED: Denies chills, fever(s) or sweats ENT ENT ED: Denies sore throat Cardiovascular Cardiovascular: Reports leg edema; Denies chest pain, palpitations or racing heartbeat Respiratory/Chest Respiratory/Chest: Reports dyspnea and dyspnea on exertion; Denies cough Gastrointestinal Gastrointestinal: Denies abdominal pain, diarrhea, nausea or vomiting Genitourinary Genitourinary ED: Denies dysuria, hematuria or urinary frequency Musculoskeletal Musculoskeletal: Denies back pain, extremity pain or neck pain Integumentary Denies rash or wounds Neurologic Neurologic: Denies headache(s), paresthesias or weakness EXAM Physical Exam Const Vital Signs: 01/06/25 13:44 01/06/25 14:13 01/06/25 14:21 Temperature 96.9 F L Temperature Source Temporal Pulse Rate 110 H 82 Respiratory Rate 26 H 24 H Respiratory Effort Respiratory Depth Respiratory Pattern Blood Pressure 124/74 H Blood Pressure Mean 90 Pulse Ox 94 98 100 Oxygen Delivery Method Nasal Cannula Nasal Cannula Nasal Cannula Oxygen Flow Rate (L/min) 6 5 5 01/06/25 14:30 01/06/25 14:35 01/06/25 15:00 Temperature Temperature Source Pulse Rate 80 78 Respiratory Rate 22 H 19 H Respiratory Effort Short of Breath Respiratory Depth Normal Respiratory Pattern Tachypnea Blood Pressure 113/89 H 99/78 Blood Pressure Mean 97 86 Pulse Ox 100 Oxygen Delivery Method Nasal Cannula Nasal Cannula Oxygen Flow Rate (L/min) 5 3 Positive well nourished and well developed Constitutional Narrative: 6 L nasal cannula, no respiratory distress. General Appearance ED: well developed and NAD HEENT Reports moist mucous membranes normocephalic and atraumatic Eyes General Eye ED: Yes normal appearance of both eyes Neck full ROM Chest Wall Chest: Negative for tenderness Resp normal respiratory effort and normal air movement Effort and Inspection: symmetric chest movement; Negative for respiratory distress Cardio regular rate and no murmurs Peripheral Pulses: pulses 2+ throughout GI normal to inspection, nondistended, normoactive bowel sounds and non-tender Palpation: Negative for guarding or rebound tenderness present Extremity normal to inspection Extremity Narrative: 1+ lower extremity edema. General Extremety ED: Yes edema; Negative for tenderness General Extremity: edema Neuro oriented x3 and no sensory deficits noted Sensorium / Orientation: awake and alert Skin no rashes or lesions noted and no wounds MDM MDM MDM Narrative Medical decision making narrative: Interventions / MDM: Differential diagnosis: Congestive heart failure, atrial fibrillation, hypoxia, elevated troponin Diagnosis considered but do not suspect: Pulmonary embolism however on anticoagulation and compliant. My EKG interpretation: Rate controlled A-fib 82, no ST changes PVC left bundle branch block. Similar findings from EKG December 07, 2024. Imaging independently reviewed and interpreted by myself: 1 view chest x-ray: Vascular congestion also read by radiology. External documents reviewed: ED visit December 07, 2024. New onset A-fib rate controlled. Heart failure. Discussion with cardiology in department Lasix to 40 mg daily along with Eliquis 2.5 mg twice daily.. Test considered but not ordered:N/A ED course: Patient currently on 6 L nasal cannula due to hypoxia, Which is new. Clinically reporting overall symptoms seem to be improved on the diuretics. EKGwith rate controlled A-fib. Will check chest x-ray will check labs. Patient will need admission due to hypoxia. 1515: Labs stable creatinine at 1.5 GFR of 39. Hemoglobin 15.8. White count 4.4. BNP 9617. Chest x-ray with vascular congestion. Given IV Lasix of 40 mg. Troponin elevated at 65 a month ago it was inthe 40s. No chest pains. I did give him 2 baby aspirin's. He is on Eliquis with last dose this morning. I discussed with hospitalist Dr. Luciano for admission to PCU. Re-evaluation: stable Disposition discussed with patient/family/significant other: Patient and family Case discussed with consulting clinician: Hospitalist This note was generated with [employer] dictation software. It may contain incorrectwords, spelling, and punctuation that were not noted in checking the note beforesigning. Lab Data Attestation: I reviewed the patient's lab results. Labs: Laboratory Results - last 24 hr 01/06/25 14:19 WBC 4.4 RBC 4.36 L Hgb 15.8 Hct 46.9 MCV 107.6 H MCH 36.2 H MCHC 33.7 RDW Std Deviation 60.3 H RDW Coeff of Yanet 15.0 H Plt Count 98 L MPV 10.5 Immature Gran % (Auto) 0.500 Neut % (Auto) 65.5 Lymph % (Auto) 18.1 L Floyd % (Auto) 13.8 H Eos % (Auto) 1.6 Baso % (Auto) 0.5 Absolute Neuts (auto) 2.9 Absolute Lymphs (auto) 0.79 L Nucleated RBC % 0.5 PT 18.1 H INR 1.5 APTT 41.0 H Sodium 135 Potassium 3.7 Chloride 96 L Carbon Dioxide 27.0 Anion Gap 13 BUN 33 H Creatinine 1.51 H Estim Creat Clear Calc 38.97 L Est GFR (MDRD) Non-Af 44 L BUN/Creatinine Ratio 22.1 H Glucose 129 H Calcium 9.4 Troponin T High Sens 65 H* D NT pro BNP II 9617 H Radiography Diagnostic Testing: Clinical Impression(s) from Imaging Studies Chest X-Ray 01/06/25 14:20 IMPRESSION: Cardiomegaly with mild congestion. Reading Location: [facility] Discharge Plan Triage Chief Complaint: Shortness of Breath ED Provider: Bret Victoria Dx/Rx/DC Orders Clinical Impression: CHF (congestive heart failure), Hypoxia, Atrial fibrillation, controlled, Elevated troponin, CKD (chronic kidney disease), stage III Prescriptions: No Action pravastatin 20 mg tablet 20 mg PO QHS allopurinol 300 mg tablet 300 mg PO DAILY nitroglycerin 0.4 mg tablet, sublingual 0.4 mg SUBLINGUAL Q5-15M PRN (Reason: chest pain) niacin [Niaspan Extended-Release] 500 mg tablet extended release 24 hr 500 mg PO QHS carvedilol [Coreg] 3.125 mg tablet 3.125 mg PO BID amoxicillin 500 mg tablet 2,000 mg PO DAILY PRN (Reason: DENTIST) Patient Comments: 30-60 minutes prior to dental procedure Lumigan 0.01 % drops 1 drp OPHTHALMIC QHS Rx Instructions: 1 DROP IN BOTH EYES Centrum Silver Men 300-600-300 mcg tablet 1 tab PO DAILY Simbrinza 1-0.2 % drops,suspension 1 drp OPHTHALMIC BID aspirin 81 mg tablet 81 mg PO QDAY furosemide 40 mg tablet 80 mg PO DAILY lutein 10 mg tablet 10 mg PO DAILY Rx Instructions: give with meal/snack Eliquis 2.5 mg tablet 2.5 mg PO BID Qty: 60 0RF Primary Care Provider: Tyra Munoz Referrals: Tyra Munoz MD [Primary Care Provider] - Print Language: Somali Disposition Disposition: Acute Care Hospital [facility] What to do if you have Problems For any increased pain, shortness of breath, bleeding, nausea or vomiting, chestpain, or any unexpected problems, contact your Primary Care Provider. Call [facility] ([phone]) or report tothe closest Emergency Room. Call 911 if necessary. 01/06/25 1530 Cosigner Signature (if applicable): CC: Dr. Tyra Munoz MD ~ Signed [facility]05-23-2025 Radiology Diagnostic study note [facility] Imaging Services [address] [place] [address] Chest 1 View (Portable) MR#: [id number] Acct: [id number] Name: VALDO GOMEZ Rep #: [id number] : 1935 M 89 From: Sonia Victoria MD PCP: Dr. Tyra Munoz MD Status: RE G ER Study:Chest 1 View (Portable) Date of Exam: 01/06/25 Exam# [id number] Ordering Dr: Bret Victoria DO EXAM: XR Chest, 1 View CLINICAL INDICATION: SOB TECHNIQUE: Frontal view of the chest. COMPARISON: No relevant prior studies available. FINDINGS: LUNGS AND PLEURAL SPACES: See below. HEART: Cardiomegaly with mild congestion. MEDIASTINUM: Unremarkable. Normal mediastinal contour. BONES/JOINTS: Unremarkable. No acute fracture. RAD/Chest 1 View (Portable) IMPRESSION: Cardiomegaly with mild congestion. Reading Location: [facility] CC: Dr. Tyra Munoz MD; Dr. Bret Victoria DO ~ [employer] Room Attendant: Signed [facility]05-13-2025 History of Present illness Narrative* Tyra Munoz MD - 12/27/2024 10:00 AM EDT Images from the original note were not included. Chief Complaint Patient presents with: Hospital Follow Up HPI Valdo Gomez is a 89 year old male who presents here today for ER Follow Up. Pt here today with Spouse and Daughter. Pt was in [facility] ER on 12/07/24 for leg swelling (reports in scanned docs). Pt was sent to ED after seeing Heather Blanco CNP in the office,found to be in A fib, which was a new finding. Admission was discussed with pt but he felt he was doing well on his own at home. He was discharged home on Eliquis2.5 mg 1 pill BID and Lasix 40 mg once daily which was discussed with Dr. Watt. Pt's ASA 81 mg daily was stopped during Hospital visit. Pt has not seen Cardiology for an extended period of time. Since his most recent Hospital visit he now has an upcoming appt scheduled with [facility] on 01/06/25. Is going to run out of new medications that were started that same day, asking for a temporary short course Rx. Edema/SOB - Pt reports that b/l lower leg edema, to mid thigh has varied, with no real improvement.Pt states that his edema is not as bad currently, legs do not feel as tight as the day he went to the ED. May have some had some slight improvement with taking Lasix 40 mg once daily. Reports shortness of breath with exerting himself. Had to stop several times on his walk back to the office. Notes that when he walks to the bathroom, which is only 8 steps, he does get sob. Denies any sob, with lying down, but is not lying flat. Is weighing himself at home daily, notes an increase over the past few months. Has been holding stable at 199 lbs, up until this week with his weight now being 202 lbs.They are measuring his legs as well. Daughter concerned about lack of walking, but pt tells her, when he steps it hurts. Afib - Denies feeling his heart racing, skipping beats, or lightheaded/dizzy. Was started on Eliquis 2.5 mg 1 tab po bid. Past medical history, appointments, medications, allergies reviewed. Previous Medical History PAST MEDICAL HISTORY Diagnosis Date Arthropathy, unspecified, site unspecified CAD (coronary artery disease) Essential hypertension, benign History of recurrent deep vein thrombosis (DVT) 2002 Obesity, unspecified Other premature beats Unspecified hypertensive heart disease Previous Surgical History PAST SURGICAL HISTORY Procedure Laterality Date ARTHRP ACETBLR/PROX FEM PROSTC AGRFT/ALGRFT 02/16 L side ARTHRP ACETBLR/PROX FEM PROSTC AGRFT/ALGRFT 1987 R side CATARACT EXTRACTION HX Bilateral 2014 lens implants PAST SURGICAL HISTORY OF N/A 05/20/2018 Resection Bladder Tumor Transurethral PERC TRANSL COR ANGIO 06/13/2010 Percutaneous Transluminal Coronary Angio Stent REVJ TOT HIP ARTHRP BTH W/WO AGRFT/ALGRFT 07/19 R side RPR 1ST INGUN HRNA AGE 5 YRS/> REDUCIBLE 1996 R side RPR 1ST INGUN HRNA AGE 6 YRS/> REDUCIBLE 08/18 L side TONSILLECTOMY HX age 8 Family History No family history on file. Patient Allergies ALLERGIES Allergen Reactions Sharon Inhibitors Other: See Comments Severe hypotension Vioxx [Rofecoxib] GI Upset Current Medications Current Outpatient Medications on File Prior to Visit Medication Sig nitroglycerin sublingual (NITROSTAT) 0.4 mg SL tablet Dissolve 1 tablet under the tongue as needed.DISSOLVE ON TONGUE FOR CHEST PAIN. IF NO PAIN RELIEF, CALL 911 Amoxicillin 500 mg tablet Take 6 tablets one hour before the dentist and 2 tablets six hours afterward. allopurinol (ZYLOPRIM) 300 mg tablet Take 1 tablet by mouth once daily. pravastatin (PRAVACHOL) 20 mg tablet Take 1 tablet by mouth once daily. carvedilol (COREG) 3.125 mg tablet Take 1 tablet by mouth two times a day. brinzolamide-brimonidine 1%-0.2 % Ophth Susp Use 1 Drop in both eyes two times a day. triamcinolone (KENALOG) 0.025 % cream Apply to affected area two times a day. Right ear. bimatoprost (LUMIGAN) 0.01 % drop ophthalmic drops Use 1 Drop in both eyes daily at bedtime. Lutein 10 mg tab Take 10 mg by mouth once daily. multivitamin tablet Take 1 tablet by mouth once daily. niacin sustained release 500 mg tablet Take 1 tablet by mouth daily at bedtime. Aspirin 81 mg Tab Take 81 mg by mouth once daily. No current facility-administered medications on file prior to visit. Social History Social History Tobacco Use Smoking status: Never Smokeless tobacco: Never Vaping Use Vaping status: Never Used Substance Use Topics Alcohol use: No Drug use: No EXAM: BP 120/74 (BP Site: Right Arm, BP Position: Sitting, BP Cuff Size: Regular Adult) Pulse 72 Resp18 SpO2 96% General Appearance: Well appearing, alert, in no acute distress, well-hydrated, well nourished. andOverweight. Lungs: Lungs clear to auscultation. No wheezing, rhonchi, rales.. Heart: Irregular Extremities: Edema: B/L legs examined. Edema noted to b/l legs with edema from lower leg up to mid thigh. Health Maintenance List DTaP,Tdap,Td Vaccine(2 - Td or Tdap) due on 09/02/2021 Covid-19 Vaccine( season) due on 12/12/2024 RSV Vaccine(1 - 1-dose 75+ series) due on 05/16/2025 Depression Screening due on 05/16/2025 Anxiety Screening due on 05/16/2025 LDL Cholesterol due on 11/02/2025 Diabetes Screening due on 11/03/2027 Influenza Vaccine Completed Advance Directive Discussion Completed Shingrix Vaccine Completed Pneumococcal Vaccine: 50+ Completed Data reviewed Scanned documents ER report [facility] 12/07/24 ASSESSMENT/PLAN: 1. Hospital discharge follow-up - ICD9: V67.59, ICD10: Z09 (primary diagnosis) - Stable today in office. 2. Acute congestive heart failure, unspecified heart failure type (HCC) - ICD9: 428.0, ICD10: I50.9 - Stable today in office - Continue current medications - Increase Lasix 40 mg 2 tabs daily - Encouraged daily weights - Follow up with Cardiology 3. Atrial fibrillation, unspecified type (HCC) - ICD9: 427.31, ICD10: I48.91 - New onset - Continue current medication regimen. 4. Acute renal insufficiency - ICD9: 593.9, ICD10: N28.9 - Continue to monitor 5. Bilateral leg edema - ICD9: 782.3, ICD10: R60.0 - Increase Lasix 40 mg to 2 tabs in the am. 6. SOB (shortness of breath) - ICD9: 786.05, ICD10: R06.02 - Increase Lasix to 40 mg bid Follow up with Cardiology as scheduled. Family would like pt to f/u with office after seeing Cardiology. I agree with the Chief Complaint, ROS, and Past Histories independently gathered by the clinical support director and the remaining scribed note accurately describes my personal service to the patient. Medical Decision Making: Problems: Moderate: New problem with uncertain prognosis Data: Unique source(s) for external note(s) reviewed: 1 Risk: Moderate: Drug management Medical Decision Making Level: 4 - Moderate Tyra Munoz MD The documentation for this note was completed by Nicol Machado MA acting as scribe for Tyra Munoz MD. December 27, 2024 10:08 AM. Nicol Machado MA documented in [facility] NoteHNO ID: [id number] Author: TYRA MUNOZ MD Service: ? Author Type: Physician Type: Progress Notes Filed: 12/27/2024 13:54 Note Text: Chief Complaint Patient presents with: Hospital Follow Up HPI Valdo Gomez is a 89 year old male who presents here today for ER Follow Up. Pt here today with Spouse and Daughter. Pt was in [facility] ER on 12/07/24 for leg swelling (reports in scanned docs). Pt was sent to ED after seeing Heather Blanco CNP in the office,found to be in A fib, which was a new finding. Admission was discussed with pt but he felt he was doing well on his own at home. He was discharged home on Eliquis 2.5 mg 1 pill BID and Lasix 40 mg once daily which was discussed with Dr. Watt. Pt's ASA 81 mg daily was stopped during Hospital visit. Pt has not seen Cardiology for an extended period of time. Since his most recent Hospital visit he now has an upcoming appt scheduled with [facility] on 01/06/25. Is going to run out of new medications that were started that same day, asking for a temporary short course Rx. Edema/SOB - Pt reports that b/l lower leg edema, to mid thigh has varied, with no real improvement. Pt states that his edema is not as bad currently, legs do not feel as tight as the day he went to the ED. May have some had some slight improvement with taking Lasix 40 mg once daily. Reports shortness of breath with exerting himself. Had to stop several times on his walk back to the office. Notes that when he walks to the bathroom, which is only 8 steps, he does get sob. Denies any sob, with lying down, but is not lying flat. Is weighing himself at home daily, notes an increase over the past few months. Has been holding stable at 199 lbs, up until this week with his weight now being 202 lbs. They are measuring his legs as well. Daughter concerned about lack of walking, but pt tells her, when he steps it hurts. Afib - Denies feeling his heart racing, skipping beats, or lightheaded/dizzy. Was started on Eliquis 2.5 mg 1 tab po bid. Past medical history, appointments, medications, allergies reviewed. Previous Medical History PAST MEDICAL HISTORY Diagnosis Date Arthropathy, unspecified, site unspecified CAD (coronary artery disease) Essential hypertension, benign History of recurrent deep vein thrombosis (DVT) 2002 Obesity, unspecified Other premature beats Unspecified hypertensive heart disease Previous Surgical History PAST SURGICAL HISTORY Procedure Laterality Date ARTHRP ACETBLR/PROX FEM PROSTC AGRFT/ALGRFT 02/16 L side ARTHRP ACETBLR/PROX FEM PROSTC AGRFT/ALGRFT 1987 R side CATARACT EXTRACTION HX Bilateral 2014 lens implants PAST SURGICAL HISTORY OF N/A 05/20/2018 Resection Bladder Tumor Transurethral PERC TRANSL COR ANGIO 06/13/2010 Percutaneous Transluminal Coronary Angio Stent REVJ TOT HIP ARTHRP BTH W/WO AGRFT/ALGRFT 07/19 R side RPR 1ST INGUN HRNA AGE 5 YRS/> REDUCIBLE 1996 R side RPR 1ST INGUN HRNA AGE 5 YRS/> REDUCIBLE 08/18 L side TONSILLECTOMY HX age 8 Family History No family history on file. Patient Allergies ALLERGIES Allergen Reactions Sharon Inhibitors Other: See Comments Severe hypotension Vioxx [Rofecoxib] GI Upset Current Medications Current Outpatient Medications on File Prior to Visit Medication Sig nitroglycerin sublingual (NITROSTAT) 0.4 mg SL tablet Dissolve 1 tablet under the tongue as needed. DISSOLVE ON TONGUE FOR CHEST PAIN. IF NO PAIN RELIEF, CALL 911 Amoxicillin 500 mg tablet Take 6 tablets one hour before the dentist and 2 tablets six hours afterward. allopurinol (ZYLOPRIM) 300 mg tablet Take 1 tablet by mouth once daily. pravastatin (PRAVACHOL) 20 mg tablet Take 1 tablet by mouth once daily. carvedilol (COREG) 3.125 mg tablet Take 1 tablet by mouth two times a day. brinzolamide-brimonidine 1%-0.2 % Ophth Susp Use 1 Drop in both eyes two times a day. triamcinolone (KENALOG) 0.025 % cream Apply to affected area two times a day. Right ear. bimatoprost (LUMIGAN) 0.01 % drop ophthalmic drops Use 1 Drop in both eyes daily at bedtime. Lutein 10 mg tab Take 10 mg by mouth once daily. multivitamin tablet Take 1 tablet by mouth once daily. niacin sustained release 500 mg tablet Take 1 tablet by mouth daily at bedtime. Aspirin 81 mg Tab Take 81 mg by mouth once daily. No current facility-administered medications on file prior to visit. Social History Social History Tobacco Use Smoking status: Never Smokeless tobacco: Never Vaping Use Vaping status: Never Used Substance Use Topics Alcohol use: No Drug use: No EXAM: BP 120/74 (BP Site: Right Arm, BP Position: Sitting, BP Cuff Size: Regular Adult) Pulse 72 Resp 18 SpO2 96% General Appearance: Well appearing, alert, in no acute distress, well-hydrated, well nourished. and Overweight. Lungs: Lungs clear to auscultation. No wheezing, rhonchi, rales.. Heart: Irregular Extremities: Edema: B/L leg (more content not included)...[facility]05-10-2025 Telephone encounter Note* Telephone Encounter - Roya Zacarias - 12/24/2024 8:41 AM EDT Spoke with patient's daughter and advised that appointment can't be moved. Patient's daughter is okw/ keeping the appointment at that time. Roya Zacarias [facility]05-10-2025 Miscellaneous Notes* Telephone Encounter - Roya Zacarias - 12/24/2024 8:41 AM EDT Spoke with patient's daughter and advised that appointment can't be moved. Patient's daughter is okw/ keeping the appointment at that time. Roya Zacarias * Telephone Encounter - Nicol Machado MA - 12/23/2024 4:57 PM EDT Unfortunately this will not occur, due to a pt scheduling inappropriately via [employer] (20 min) for a Medicare Wellness Physical and the 9:00 am already being scheduled since June and also elderly. Unfortunately we can not accommodate this request. She can check and see if there are other openings within the Dept to accommodate her schedule better. Nicol Machado MA * Telephone Encounter - Jody Corral - 12/23/2024 4:36 PM EDT DaughterSusan, demanded PSS send a request to PCP's office to have them ask other patient's already scheduled in the 9:00 am hour on 12/27/24 to move to another day. She is wanting to have patient's appointment moved up in order to be closer to when her mother begins physical therapy so they end around similar times. PH. [phone] documented in this encounterC[facility]05-09-2025 Telephone encounter Note * Telephone Encounter - Nicol Machado MA - 12/23/2024 4:57 PM EDT Unfortunately this will not occur, due to a pt scheduling inappropriately via [employer] (20 min) for a Medicare Wellness Physical and the 9:00 am already being scheduled since June and also elderly. Unfortunately we can not accommodate this request. She can check and see if there are other openings within the Dept to accommodate her schedule better. Nicol Machado MA [facility]05-09-2025 Telephone encounter Note* Telephone Encounter - Jody Corral - 12/23/2024 4:36 PM EDT DaughterSusan, demanded PSS send a request to PCP's office to have them ask other patient's already scheduled in the 9:00 am hour on 12/27/24 to move to another day. She is wanting to have patient's appointment moved up in order to be closer to when her mother begins physical therapy so they end around similar times. PH. [phone] [facility]04-23-2025 NoteHNO ID: [id number] Author: HEATHER BLANCO APRN.JUNIOR MECHANICAL ENGINEER Service: ? Author Type: Nurse Practitioner Type: Progress Notes Filed: 12/07/2024 12:12 Note Text: 12/07/2024 Patient presents with: Breathing Problem: SOB with activity and bilateral lower extremity swelling SUBJECTIVE: This is a 89 year old, accompanied by , that is here today for Above Complaints. Rojas noticed increasing weight over the last coupleo of months. Increwased leg swelling. Feels SOB with exertion. Denies hx of CHF, orthopnea, dyspnea, or palpitations PAST MEDICAL HISTORY Diagnosis Date Arthropathy, unspecified, site unspecified CAD (coronary artery disease) Essential hypertension, benign History of recurrent deep vein thrombosis (DVT) 2002 Obesity, unspecified Other premature beats Unspecified hypertensive heart disease ALLERGIES Sharon Inhibitors and Vioxx [Rofecoxib] MEDICATIONS Current Outpatient Medications Medication Sig nitroglycerin sublingual (NITROSTAT) 0.4 mg SL tablet Dissolve 1 tablet under the tongue as needed. DISSOLVE ON TONGUE FOR CHEST PAIN. IF NO PAIN RELIEF, CALL 911 Amoxicillin 500 mg tablet Take 6 tablets one hour before the dentist and 2 tablets six hours afterward. allopurinol (ZYLOPRIM) 300 mg tablet Take 1 tablet by mouth once daily. pravastatin (PRAVACHOL) 20 mg tablet Take 1 tablet by mouth once daily. carvedilol (COREG) 3.125 mg tablet Take 1 tablet by mouth two times a day. brinzolamide-brimonidine 1%-0.2 % Ophth Susp Use 1 Drop in both eyes two times a day. triamcinolone (KENALOG) 0.025 % cream Apply to affected area two times a day. Right ear. bimatoprost (LUMIGAN) 0.01 % drop ophthalmic drops Use 1 Drop in both eyes daily at bedtime. Lutein 10 mg tab Take 10 mg by mouth once daily. multivitamin tablet Take 1 tablet by mouth once daily. niacin sustained release 500 mg tablet Take 1 tablet by mouth daily at bedtime. Aspirin 81 mg Tab Take 81 mg by mouth once daily. No current facility-administered medications for this visit. Medications and allergies reviewed by this provider. SOCIAL HISTORY Social History Tobacco Use Smoking status: Never Smokeless tobacco: Never Vaping Use Vaping status: Never Used Substance Use Topics Alcohol use: No Drug use: No REVIEW OF SYSTEMS All other reviewed and negative other than HPI. OBJECTIVE: BP 106/64 Pulse 75 Temp (!) 35.9 ?C (96.6 ?F) Resp 26 Wt 94.7 kg (208 lb 12.8 oz) SpO2 98% BMI 30.83 kg/m? . Vital signs reviewed by this provider. APPEARANCE Well appearing, alert, in no acute distress, well-hydrated, well nourished. EYES PERRLA, conjunctiva and sclera normal. HEART irregularly irregular LUNG Right posteriorly diminished throughout. Left posteriorly CTA EXTREMITIES 1+ pitting BLE SKIN Skin color, texture, turgor normal, no suspicious rashes or lesions to exposed skin DTaP,Tdap,Td Vaccine(2 - Td or Tdap) due on 09/02/2021 RSV Vaccine(1 - 1-dose 75+ series) due on 05/16/2025 Covid-19 Vaccine( season) due on 12/12/2024 Depression Screening due on 05/16/2025 Anxiety Screening due on 05/16/2025 LDL Cholesterol due on 11/02/2025 Diabetes Screening due on 11/03/2027 Influenza Vaccine Completed Advance Directive Discussion Completed Shingrix Vaccine Completed Pneumococcal Vaccine: 50+ Completed ASSESSMENT/PLAN: 1. SOB (shortness of breath) - ICD9: 786.05, ICD10: R06.02 (primary diagnosis) - concern for acute CHF - discussed with patient the need for evaluation in ER, agreeable to go to ER - offered ambulance however patient's daughter is here and can drive him - ECG COMPLETE - report called to Dr. Stevenson at [facility] 2. Bilateral leg edema - ICD9: 782.3, ICD10: R60.0 -plan as in #1 - ECG COMPLETE 3. Weight gain - ICD9: 783.1, ICD10: R63.5 - plan as in #1 - ECG COMPLETE 4. Abnormal EKG - ICD9: 794.31, ICD10: R94.31 - EKG showing atrial fib PVCs or aberrantly conducted complexes - copy of EKG sent with patient Heather Blanco APRN.JUNIOR MECHANICAL ENGINEER Prescription instructions reviewed with patient as applicable. Patient advised if symptoms do not improve or if symptoms worsen sooner, to contact their primary care physician. Potential red flag symptoms discussed with the patient. Reviewed appropriate action plan to take if red flag symptoms occur. Patient agreeable to treatment plan. Medical Decision Making: Problems: Moderate: Acute illness with systemic symptoms Data: Unique test(s) ordered: 1 Risk: Moderate: Moderate risk from testing/treatment Medical Decision Making Level: 4 - [facility] of Present illness Narrative* Heather Blanco APRN.JUNIOR MECHANICAL ENGINEER - 12/07/2024 11:37 AM EDT 12/07/2024 Patient presents with: Breathing Problem: SOB with activity and bilateral lower extremity swelling SUBJECTIVE: This is a 89 year old, accompanied by , that is here today for Above Complaints. Rojas noticed increasing weight over the last coupleo of months. Increwased leg swelling. Feels SOB with exertion. Denies hx of CHF, orthopnea, dyspnea, or palpitations PAST MEDICAL HISTORY Diagnosis Date Arthropathy, unspecified, site unspecified CAD (coronary artery disease) Essential hypertension, benign History of recurrent deep vein thrombosis (DVT) 2003 Obesity, unspecified Other premature beats Unspecified hypertensive heart disease ALLERGIES Sharon Inhibitors and Vioxx [Rofecoxib] MEDICATIONS Current Outpatient Medications Medication Sig nitroglycerin sublingual (NITROSTAT) 0.4 mg SL tablet Dissolve 1 tablet under the tongue as needed.DISSOLVE ON TONGUE FOR CHEST PAIN. IF NO PAIN RELIEF, CALL 911 Amoxicillin 500 mg tablet Take 6 tablets one hour before the dentist and 2 tablets six hours afterward. allopurinol (ZYLOPRIM) 300 mg tablet Take 1 tablet by mouth once daily. pravastatin (PRAVACHOL) 20 mg tablet Take 1 tablet by mouth once daily. carvedilol (COREG) 3.125 mg tablet Take 1 tablet by mouth two times a day. brinzolamide-brimonidine 1%-0.2 % Ophth Susp Use 1 Drop in both eyes two times a day. triamcinolone (KENALOG) 0.025 % cream Apply to affected area two times a day. Right ear. bimatoprost (LUMIGAN) 0.01 % drop ophthalmic drops Use 1 Drop in both eyes daily at bedtime. Lutein 10 mg tab Take 10 mg by mouth once daily. multivitamin tablet Take 1 tablet by mouth once daily. niacin sustained release 500 mg tablet Take 1 tablet by mouth daily at bedtime. Aspirin 81 mg Tab Take 81 mg by mouth once daily. No current facility-administered medications for this visit. Medications and allergies reviewed by this provider. SOCIAL HISTORY Social History Tobacco Use Smoking status: Never Smokeless tobacco: Never Vaping Use Vaping status: Never Used Substance Use Topics Alcohol use: No Drug use: No REVIEW OF SYSTEMS All other reviewed and negative other than HPI. OBJECTIVE: BP 106/64 Pulse 75 Temp (!) 35.9 C (96.6 F) Resp 26 Wt 94.7 kg (208 lb 12.8 oz) SpO2 98% BMI 30.83 kg/m . Vital signs reviewed by this provider. APPEARANCE Well appearing, alert, in no acute distress, well-hydrated, well nourished. EYES PERRLA, conjunctiva and sclera normal. HEART irregularly irregular LUNG Right posteriorly diminished throughout. Left posteriorly CTA EXTREMITIES 1+ pitting BLE SKIN Skin color, texture, turgor normal, no suspicious rashes or lesions to exposed skin DTaP,Tdap,Td Vaccine(2 - Td or Tdap) due on 09/02/2021 RSV Vaccine(1 - 1-dose 75+ series) due on 05/16/2025 Covid-19 Vaccine( season) due on 12/12/2024 Depression Screening due on 05/16/2025 Anxiety Screening due on 05/16/2025 LDL Cholesterol due on 11/02/2025 Diabetes Screening due on 11/03/2027 Influenza Vaccine Completed Advance Directive Discussion Completed Shingrix Vaccine Completed Pneumococcal Vaccine: 50+ Completed ASSESSMENT/PLAN: 1. SOB (shortness of breath) - ICD9: 786.05, ICD10: R06.02 (primary diagnosis) - concern for acute CHF - discussed with patient the need for evaluation in ER, agreeable to go to ER - offered ambulance however patient's daughter is here and can drive him - ECG COMPLETE - report called to Dr. Stevenson at [facility] 2. Bilateral leg edema - ICD9: 782.3, ICD10: R60.0 -plan as in #1 - ECG COMPLETE 3. Weight gain - ICD9: 783.1, ICD10: R63.5 - plan as in #1 - ECG COMPLETE 4. Abnormal EKG - ICD9: 794.31, ICD10: R94.31 - EKG showing atrial fib PVCs or aberrantly conducted complexes - copy of EKG sent with patient Heather Blanco APRN.JUNIOR MECHANICAL ENGINEER Prescription instructions reviewed with patient as applicable. Patient advised if symptoms do not improve or if symptoms worsen sooner, to contact their primary care physician. Potential red flag symptoms discussed with the patient. Reviewed appropriate action plan to take if red flag symptoms occur. Patient agreeable to treatment plan. Medical Decision Making: Problems: Moderate: Acute illness with systemic symptoms Data: Unique test(s) ordered: 1 Risk: Moderate: Moderate risk from testing/treatment Medical Decision Making Level: 4 - Moderate documented in this encounterC[facility]04-23-2025 Telephone encounter Note * Telephone Encounter - Roya Stewart RN - 12/07/2024 10:03 AM EDT Patient call in for shortness of breath with activity and bilateral leg swelling. Nurse Triage assessment completed with protocol recommending for disposition of See PCP in 4 hours.Patient scheduled to see Heather Blanco 12/07/2024. Care advice reviewed with patient, patient stated understanding. Patient advised to contact office or seek evaluation in urgent care or ER if symptoms persist or gets worse. Reason for Disposition [1] MILD difficulty breathing (e.g., minimal/no SOB at rest, SOB with walking, pulse <100) AND [2] NEW-onset or WORSE than normal SEVERE leg swelling (e.g., swelling extends above knee, entire leg is swollen, weeping fluid) Answer Assessment - Initial Assessment Questions 1. RESPIRATORY STATUS: Shortness of breath with activity 2. ONSET: Since last appointment in October 17. PATTERN Comes and Goes 4. SEVERITY: Mild, patient has shortness of breath with activity 5. RECURRENT SYMPTOM: Denies 6. CARDIAC HISTORY: Stent placement 14 years ago 7. LUNG HISTORY: Denies 8. CAUSE: Has gained 20 pounds in last month. Patient has had no changes in diet. 9. OTHER SYMPTOMS: Bilateral Leg Swelling from Hip to Feet; 20 pound weight gain Answer Assessment - Initial Assessment Questions 1. ONSET: Patient states that Dr. Munoz had told him at last appointment that he needed to update PCP ifswelling of legs got worse. Patient states that since appointment on 11/14/2024 swelling of legs have gotten worse. 2. LOCATION: Bilateral Legs 3. SEVERITY: Patient states that legs are swollen from Hip down to feet. 4. REDNESS: Denies 5. PAIN: Denies 6. FEVER: Denies 7. CAUSE: Unsure 8. MEDICAL HISTORY: Coronary Artery Disease; Stent Placement; Stage III Kidney disease 9. RECURRENT SYMPTOM: Denies 10. OTHER SYMPTOMS: Shortness of breath with activity; 20 pound weight gain Protocols used: Breathing [id number], Leg Swelling and [id number] [facility]04-23-2025 Miscellaneous Notes* Telephone Encounter - Roya Stewart RN - 12/07/2024 10:03 AM EDT Patient call in for shortness of breath with activity and bilateral leg swelling. Nurse Triage assessment completed with protocol recommending for disposition of See PCP in 4 hours.Patient scheduled to see Heather Podlogar 12/07/2024. Care advice reviewed with patient, patient stated understanding. Patient advised to contact office or seek evaluation in urgent care or ER if symptoms persist or gets worse. Reason for Disposition [1] MILD difficulty breathing (e.g., minimal/no SOB at rest, SOB with walking, pulse <100) AND [2] NEW-onset or WORSE than normal SEVERE leg swelling (e.g., swelling extends above knee, entire leg is swollen, weeping fluid) Answer Assessment - Initial Assessment Questions 1. RESPIRATORY STATUS: Shortness of breath with activity 2. ONSET: Since last appointment in October 17. PATTERN Comes and Goes 4. SEVERITY: Mild, patient has shortness of breath with activity 5. RECURRENT SYMPTOM: Denies 6. CARDIAC HISTORY: Stent placement 14 years ago 7. LUNG HISTORY: Denies 8. CAUSE: Has gained 20 pounds in last month. Patient has had no changes in diet. 9. OTHER SYMPTOMS: Bilateral Leg Swelling from Hip to Feet; 20 pound weight gain Answer Assessment - Initial Assessment Questions 1. ONSET: Patient states that Dr. Munoz had told him at last appointment that he needed to update PCP ifswelling of legs got worse. Patient states that since appointment on 11/14/2024 swelling of legs have gotten worse. 2. LOCATION: Bilateral Legs 3. SEVERITY: Patient states that legs are swollen from Hip down to feet. 4. REDNESS: Denies 5. PAIN: Denies 6. FEVER: Denies 7. CAUSE: Unsure 8. MEDICAL HISTORY: Coronary Artery Disease; Stent Placement; Stage III Kidney disease 9. RECURRENT SYMPTOM: Denies 10. OTHER SYMPTOMS: Shortness of breath with activity; 20 pound weight gain Protocols used: Breathing [id number], Leg Swelling and [id number] documented in this [facility]25 NoteHNO ID: [id number] Author: STEFFEN JAQUEZ PT Service: ? Author Type: Physical Therapist Type: Progress Notes Filed: 11/29/2024 18:49 Note Text: Episode Visit Count: 1 Therapist That Will Accept/Oversee The Plan Of Care: Steffen Jaquez PT Start of Care Date: 11/29/24 Onset Date: 07/31/24 Plan of Care Certification Date: 11/29/24 Next Certification Due Date: 01/24/25 Patient Identified by Name and Date of : Yes REHABILITATION AND SPORTS THERAPY PHYSICAL THERAPY EVALUATION PLAN OF CARE: Assessment: Valdo Gomez presents with diagnosis of gait difficulty and deconditioning that interferes with rising from a chair, standing, walking, stair negotiation . The patient presents with impairments in ADL's, balance, gait, independence in exercise, overall function, and strength. PROMIS? (Patient-Reported Outcomes Measurement Information System) scores were reviewed and identified as a rehabilitation concern. Prognosis for therapy is Good due to: current objective clinical presentation, good support system/ coping skills. The patient will benefit from skilled therapy services to meet the goals established for this plan of care as noted below. Assessment Fall Risk : Complex at risk Goals for Episode of Care: established 11/29/24 Patient will report no falls. Improve score on Timed Up and Go Test to 9-11 seconds to reflect decreased fall risk. Improve score on 30 Second Chair Stand to 8 repetitions to reflect decreased fall risk. Improve performance on 4 Stage Balance Test to 10 second tandem to reflect decreased fall risk. [place] in home exercise program including cardiovascular exercise. Patient will demonstrate independent and proper use of assisstive device to allow for improved walking quality and safety therefore reducing the risk of falls. Patient Goals: improve balance and functional mobility Time Frame for Goals and Treatment : 01/24/25 Planned Interventions, Frequency, and Duration: Current Frequency: 2x/week Duration: 8 weeks Total Number of Visits Planned: 16 Planned Treatment Interventions: Therapeutic exercise (32765), Neuromuscular re-education (91249), Therapeutic activities (43531), Self-detention management (46365), Gait Training (06318), Patient/Family/Caregiver Education, General Conditioning PLAN FOR NEXT VISIT: Review, correct and progress HEP to tolerance seated. Continue with gait training with AD in his environment. Balance training, functional strengthening and conditioning. Patient demonstrates good understanding of plan of care and treatment. The above goals and plan of care were discussed and agreed upon by patient/family. SUBJECTIVE: Pt reports that he has been having difficulty walking for several years. He reports that prior to 4-5 months ago, he was confident with the cane but now he requires a rollator and walker. He reports that he has a cane at home, a standard walker, a rollator and a wheeled walker. He reports that he uses his cane and handrail on steps. 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 Patient Lives With: Spouse Assistance Available: PRN Home Type: Multi-Level Entry To Home: Stairs, Without Rail Number Of Stairs Into Home: 3 Number Of Stairs To Bed/Bath: 14 Stairs to Bed/Bath with: Unilateral Rail Equipment Owned: Cane, Walker- Standard, Walker- Wheeled, Rollator Intake Information: Prescription present Previous Treatment: None Falls Interview: No positive findings with falls interview (Pt denies any falls) Falls History # of falls in past year: 0 # of falls resulting in an injury in past year: 0 Pain: Pain Pain Level: 0 Description: (no pain currently but he does report pain in LEs later in the day) Frequency: Intermittent Post Treatment Pain Post Treatment Pain Level: No Change Post Treatment Symptoms: During and after session pt reported and demonstrated fatigue but otherwise he denied any pain or problems. Pt was unable to rise from seated position without UE assist. PROMIS Scales 11/29/2024 Higher is Better Self-Eff Symptom - T Score 39 (Low) Self-Eff Symptom - Percentile 14 Mobility - T Score 33 (moderate dysfunction) Mobility - Percentile 4 Proxy-reported T-scores: mean of general population = 50. 5 points is clinically meaningfully difference Percentiles provide an indication of how the patient's score ranks in relation to the general population. Higher percentile rankings indicate better function/quality of life. 50th percentile is the average of the gener (more content not included)...[facility]04-15-2025 History of Present illness Narrative* Steffen Jaquez, PT - 11/29/2024 6:44 PM EDT Images from the original note were not included. Episode Visit Count: 1 Therapist That Will Accept/Oversee The Plan Of Care: Steffen Jaquez PT Start of Care Date: 11/29/24 Onset Date: 07/31/24 Plan of Care Certification Date: 11/29/24 Next Certification Due Date: 01/24/25 Patient Identified by Name and Date of : Yes REHABILITATION AND SPORTS THERAPY PHYSICAL THERAPY EVALUATION PLAN OF CARE: Assessment: Valdo Gomez presents with diagnosis of gait difficulty and deconditioning that interferes with rising from a chair, standing, walking, stair negotiation . The patient presents withimpairments in ADL's, balance, gait, independence in exercise, overall function, and strength. PROMIS (Patient- Reported Outcomes Measurement Information System) scores were reviewed and identified asa rehabilitation concern. Prognosis for therapy is Good due to: current objective clinical presentation, good support system/ coping skills. The patient will benefit from skilled therapy services to meet the goals established for this plan of care as noted below. Assessment Fall Risk : Complex at risk Goals for Episode of Care: established 11/29/24 Patient will report no falls. Improve score on Timed Up and Go Test to 9-11 seconds to reflect decreased fall risk. Improve score on 30 Second Chair Stand to 8 repetitions to reflect decreased fall risk. Improve performance on 4 Stage Balance Test to 10 second tandem to reflect decreased fall risk. [place] in home exercise program including cardiovascular exercise. Patient will demonstrate independent and proper use of assisstive device to allow for improved walking quality and safety therefore reducing the risk of falls. Patient Goals: improve balance and functional mobility Time Frame for Goals and Treatment : 01/24/25 Planned Interventions, Frequency, and Duration: Current Frequency: 2x/week Duration: 8 weeks Total Number of Visits Planned: 16 Planned Treatment Interventions: Therapeutic exercise (84022), Neuromuscular re- education (43054), Therapeutic activities (67288), Self-detention management (48511), Gait Training (25259), Patient/Family/Caregiver Education, General Conditioning PLAN FOR NEXT VISIT: Review, correct and progress HEP to tolerance seated. Continue with gait training with AD in his environment. Balance training, functional strengthening and conditioning. Patient demonstrates good understanding of plan of care and treatment. The above goals and plan of care were discussed and agreed upon by patient/family. SUBJECTIVE: Pt reports that he has been having difficulty walking for several years. He reports that prior to 4-5 months ago, he was confident with the cane but now he requires a rollator and walker. He reports that he has a cane at home, a standard walker, a rollator and a wheeled walker. He reports that he uses his cane and handrail on steps. 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 Patient Lives With: Spouse Assistance Available: PRN Home Type: Multi-Level Entry To Home: Stairs, Without Rail Number Of Stairs Into Home: 3 Number Of Stairs To Bed/Bath: 14 Stairs to Bed/Bath with: Unilateral Rail Equipment Owned: Cane, Walker- Standard, Walker- Wheeled, Rollator Intake Information: Prescription present Previous Treatment: None Falls Interview: No positive findings with falls interview (Pt denies any falls) Falls History # of falls in past year: 0 # of falls resulting in an injury in past year: 0 Pain: Pain Pain Level: 0 Description: (no pain currently but he does report pain in LEs later in the day) Frequency: Intermittent Post Treatment Pain Post Treatment Pain Level: No Change Post Treatment Symptoms: During and after session pt reported and demonstrated fatigue but otherwise he denied any pain or problems. Pt was unable to rise from seated position without UE assist. PROMIS Scales 11/29/2024 Higher is Better Self-Eff Symptom - T Score 39 (Low) Self-Eff Symptom - Percentile 14 Mobility - T Score 33 (moderate dysfunction) Mobility - Percentile 4 Proxy-reported T-scores: mean of general population = 50. 5 points is clinically meaningfully difference Percentiles provide an indication of how the patient's score ranks in relation to the general population. Higher percentile rankings indicate better function/quality of life. 50th percentile is the average of the general population and indicates half of respondents had a worse score. OBJECTIVE MEASURES WITH LEVEL OF FUNCTION: Posture / Alignment Posture: Forward head, Increased thoracic kyphosis, Rounded shoulders, Poor LE PROM R LE PROM: Grossly WFL but swelling restricts motion in B LEs. L LE PROM : Grossly WFL but swelling restricts motion in B LEs. Gait Gait Observation: Pt ambulates with rollator modified independent with slow and cautious pattern. Stairs: Not tested but pt reports that he struggles with this at home, especially entering. On stairs to second floor he reports confidence with cane and single handrail. Functional Performance Test Results Assistive Device: Rollator 30 Second Chair Stand Test: 0 reps (6 reps with UE assist, 0 reps without UE assist) Timed Up and Go (sec): 21.4 sec (rollator) 4 Stage Balance Test Narrow base of support (sec): 10 sec Semi-tandem base of support (sec): 3 sec Tandem base of support (sec): 0 sec Single leg stance - right (sec): 0 sec Single leg stance - left (sec): 0 sec Vitals BP: 103/65 Pulse: 65 Education: Education Learning Preferences: Demonstration, Explanation, Performance, Printed Materials Barriers: None Learning/educational needs: Home exercise program, Plan of Care, Posture, Body Mechanics Education Provided: Yes, see treatment interventions for education provided Education Provided To: Patient Education Mode/Type: Demonstration, Explanation/Discussion, Literature/Printed Materials, Performance Response to Education/Teach Back: States/Identifies, Return Demonstration, Requires Review/Additional Education TREATMENT: PT Treatment Interventions: Gait Training, Therapeutic Exercise Evaluation Therapeutic Exercise: 1: Pt and his were repeatedly advised that patient should only do seated therex and to never attempt balance tests or treatments at home. 2: *seated B ankle DF/PF AROM 2x10 3: *seated B marching 2x10 4: *seated B knee extension 2x10 Skilled Intervention: Patient was educated in proper exercise technique and purpose for exercises. Reviewed and educated patient on additions/changes for home exercise program as above (*). Skilled judgment was used in selection of appropriate interventions. Provided written instruction for home exercise program to facilitate proper performance and compliance. Correct performance of therapeutic exercises was facilitated with verbal, visual, and tactile cuing. Patient education as noted. Gait Trainin: Pt's options for ambulation at home were reviewed. He was encouraged to use one of his walkers at all times with ambulation since he has one on every level of his house. He was advised to continuewith cane and single rail on stairs. He was educatd on how to lock and unlock his rollator. Proper transfer technique with rollator also reviewed. His observed deficits were explained and the role ofPT also explained. Skilled Intervention: Facilitated proper gait cycle with the use of verbal, visual, and tactile cues for correction of gait deviations identified in the objective section above. Gait belt utilized during session for safety. Skilled judgment used to assess selection and proper use of assistive device. Billing * Evaluation Low Complexity: 1 Unit Therapeutic Exercise Treatment Minutes: 10 Gait Training Treatment Minutes: 18 Skilled Treatment Time Minutes (timed and untimed codes): 48 Total Session Time (minutes): 48 Session Start Time : 1003 Session Stop Time : 1051 Steffen Jaquez PT documented in this [facility]03-31-2025 History of Present illness Narrative* Tyra Munoz MD - 11/14/2024 1:40 PM EDT Chief Complaint Patient presents with: F/U 6 Month HPI Valdo Gomez is a 88 year old male who presents here today for 6 month follow up. No bowel, Gi, or urinary issues. Does get up 3-4 x to urinate per night. Follows with Dr. Hernandez (has not seen him in quite some time), urologist for bladder cancer. CKD: GFR at 60 and stable; monitored with labs. HTN: Denies checking BP at home. Denies any chest pains, dizziness, or SOB. Taking Coreg 3.125 mg BID. Some swelling in feet and ankles, no SOB Gout: Stable with Allopurinol 300 mg daily. Uses Prednisone as needed for flare ups. Lipid: Taking Pravastatin 20 mg daily and ASA 81 mg daily. Tolerating medication well. Tries to watch diet, eats fairly healthy. Not exercising as much, was using a stationary bike but made his legs sore. Glucose - Checks sugars at home, occasionally. Recent check at home was 111. On on medications at this time. notes that pt had a bloody nose recently. Notes some increased edema in b/l feet. Still able to wear his shoes. Using a rollator today to help with ambulating. Issues with arthritis pain, states that it gets harder to walk. Asking what he can really take when having arthritis pain. had to help him get into the tub. Reports that when he was treated previously with Prednisone this got rid of his general aches and pains, but pain returned when prednisone was stopped.. Past medical history, appointments, medications, allergies reviewed. Previous Medical History PAST MEDICAL HISTORY Diagnosis Date Arthropathy, unspecified, site unspecified CAD (coronary artery disease) Essential hypertension, benign History of recurrent deep vein thrombosis (DVT) 2002 Obesity, unspecified Other premature beats Unspecified hypertensive heart disease Previous Surgical History PAST SURGICAL HISTORY Procedure Laterality Date ARTHRP ACETBLR/PROX FEM PROSTC AGRFT/ALGRFT 02/16 L side ARTHRP ACETBLR/PROX FEM PROSTC AGRFT/ALGRFT 1987 R side CATARACT EXTRACTION HX Bilateral 2014 lens implants PAST SURGICAL HISTORY OF N/A 05/20/2018 Resection Bladder Tumor Transurethral PERC TRANSL COR ANGIO 06/13/2010 Percutaneous Transluminal Coronary Angio Stent REVJ TOT HIP ARTHRP BTH W/WO AGRFT/ALGRFT 07/19 R side RPR 1ST INGUN HRNA AGE 5 YRS/> REDUCIBLE 1996 R side RPR 1ST INGUN HRNA AGE 5 YRS/> REDUCIBLE 08/18 L side TONSILLECTOMY HX age 8 Family History No family history on file. Patient Allergies ALLERGIES Allergen Reactions Sharon Inhibitors Other: See Comments Severe hypotension Vioxx [Rofecoxib] GI Upset Current Medications Current Outpatient Medications on File Prior to Visit Medication Sig allopurinol (ZYLOPRIM) 300 mg tablet Take 1 tablet by mouth once daily. pravastatin (PRAVACHOL) 20 mg tablet Take 1 tablet by mouth once daily. carvedilol (COREG) 3.125 mg tablet Take 1 tablet by mouth two times a day. brinzolamide-brimonidine 1%-0.2 % Ophth Susp Use 1 Drop in both eyes two times a day. triamcinolone (KENALOG) 0.025 % cream Apply to affected area two times a day. Right ear. Amoxicillin 500 mg tablet Take 6 tablets one hour before the dentist and 2 tablets six hours afterward. nitroglycerin sublingual (NITROSTAT) 0.4 mg SL tablet Dissolve 1 tablet under the tongue as needed.DISSOLVE ON TONGUE FOR CHEST PAIN. IF NO PAIN RELIEF, CALL 911 bimatoprost (LUMIGAN) 0.01 % drop ophthalmic drops Use 1 Drop in both eyes daily at bedtime. Lutein 10 mg tab Take 10 mg by mouth once daily. multivitamin tablet Take 1 tablet by mouth once daily. niacin sustained release 500 mg tablet Take 1 tablet by mouth daily at bedtime. Aspirin 81 mg Tab Take 81 mg by mouth once daily. No current facility-administered medications on file prior to visit. Social History Social History Tobacco Use Smoking status: Never Smokeless tobacco: Never Vaping Use Vaping status: Never Used Substance Use Topics Alcohol use: No Drug use: No EXAM: BP 110/76 (BP Site: Left Arm, BP Position: Sitting, BP Cuff Size: Regular Adult) Pulse 70 Resp 18 Wt 87.3 kg (192 lb 7.4 oz) BMI 28.42 kg/m General Appearance: Well appearing, alert, in no acute distress, well-hydrated, well nourished.. Lungs: Lungs clear to auscultation. No wheezing, rhonchi, rales.. Heart: RRR without murmur, gallop, or rubs. No ectopy. Extremities: Edema: mild bi in feel and lower legs. Health Maintenance List RSV Vaccine(1 - 1-dose 75+ series) Never done DTaP,Tdap,Td Vaccine(2 - Td or Tdap) due on 09/02/2021 Advance Directive Discussion due on 08/17/2024 Covid-19 Vaccine( season) due on 12/12/2024 Depression Screening due on 05/16/2025 Anxiety Screening due on 05/16/2025 LDL Cholesterol due on 11/02/2025 Diabetes Screening due on 11/03/2027 Influenza Vaccine Completed Shingrix Vaccine Completed Pneumococcal Vaccine: 50+ Completed Data reviewed Appointment on 11/02/2024 Component Date Value Protein, Total 11/02/2024 6.9 Albumin 11/02/2024 4.0 Calcium, Total 11/02/2024 9.3 Bilirubin, Total 11/02/2024 0.9 Alkaline Phosphatase 11/02/2024 159 (H) AST 11/02/2024 41 (H) ALT 11/02/2024 24 Glucose 11/02/2024 111 (H) BUN 11/02/2024 31 (H) Creatinine 11/02/2024 1.19 Sodium 11/02/2024 140 Potassium 11/02/2024 4.4 Chloride 11/02/2024 105 CO2 11/02/2024 23 Anion Gap 11/02/2024 12 Estimated Glomerular Delvin* 11/02/2024 59 (L) Cholesterol, Total 11/02/2024 106 Triglyceride 11/02/2024 63 HDL Cholesterol 11/02/2024 48 Non HDL Cholesterol 11/02/2024 58 Fasting Time 11/02/2024 12 VLDL Cholesterol 11/02/2024 13 TC:HDL Ratio 11/02/2024 2.21 LDL Cholesterol 11/02/2024 45 LDL:HDL Ratio 11/02/2024 0.94 WBC 11/02/2024 5.29 RBC 11/02/2024 3.86 (L) Hemoglobin 11/02/2024 13.7 Hematocrit 11/02/2024 42.7 MCV 11/02/2024 110.6 (H) MCH 11/02/2024 35.5 (H) MCHC 11/02/2024 32.1 RDW-CV 11/02/2024 13.6 Platelet Count 11/02/2024 119 (L) MPV 11/02/2024 11.9 Neutrophils % 11/02/2024 42.4 Abs Neut 11/02/2024 2.24 Lymphocytes % 11/02/2024 38.0 Abs Lymph 11/02/2024 2.01 Monocytes % 11/02/2024 13.2 Abs Floyd 11/02/2024 0.70 Eosinophils % 11/02/2024 5.1 Abs Eosin 11/02/2024 0.27 Basophils % 11/02/2024 1.1 Abs Baso 11/02/2024 0.06 Immature Granulocytes % 11/02/2024 0.2 Abs Immature Gran 11/02/2024 <0.03 NRBC 11/02/2024 0.0 Absolute nRBC 11/02/2024 <0.01 Platelet Estimate 11/02/2024 Decreased Red Cell Morph 11/02/2024 Reviewed: see results of individual morphologies Ovalocytes 11/02/2024 Few Diff Type 11/02/2024 Auto Uric Acid 11/02/2024 3.2 (L) ASSESSMENT/PLAN: 1. BENIGN HYPERTENSION - ICD9: 401.1, ICD10: I10 (primary diagnosis) - Controlled - Continue current medications - Recommend home blood pressure monitoring, to bring results to next visit - Encouraged sodium restriction, DASH or Mediterranean diet - Recommend regular aerobic exercise - COMPREHENSIVE METABOLIC PANEL - LIPID PANEL, FASTING - COMPLETE BLOOD COUNT 2. Pure hypercholesterolemia - ICD9: 272.0, ICD10: E78.00 Controlled Continue current medications. - COMPREHENSIVE METABOLIC PANEL - LIPID PANEL, FASTING 3. Idiopathic gout, unspecified chronicity, unspecified site - ICD9: 274.9, ICD10: M10.00 Continue current medications. - URIC ACID 4. Coronary artery disease involving [place] coronary artery of [place] heart without angina pectoris- ICD9: 414.01, ICD10: I25.10 Stable Continue current medications. - COMPREHENSIVE METABOLIC PANEL - LIPID PANEL, FASTING - NITROGLYCERIN 0.4 MG SUBLINGUAL TABLET 5. Elevated glucose - ICD9: 790.29, ICD10: R73.09 Lifestyle Monitor with labs - COMPREHENSIVE METABOLIC PANEL - HEMOGLOBIN A1C 6. Stage 3 chronic kidney disease, unspecified whether stage 3a or 3b CKD (HCC) - ICD9: 585.3, ICD10: N18.30 - eGFR: 59 Stable - Monitor - COMPLETE BLOOD COUNT 7. S/P bilateral hip replacements - ICD9: V43.64, ICD10: Z96.643 - AMOXICILLIN 500 MG TABLET 8. Physical deconditioning - ICD9: 799.3, ICD10: R53.81 PT for general streghthening - CONSULT TO PHYSICAL THERAPY 9. Gait abnormality - ICD9: 781.2, ICD10: R26.9 - CONSULT TO PHYSICAL THERAPY Follow up in 6 months Call if swelling increases Medical Decision Making: Problems: Moderate: 2+ stable chronic illnesses Data: Unique test result(s) reviewed: 3+ Unique test(s) ordered: 3+ Risk: Moderate: Drug management Medical Decision Making Level: 4 - Moderate Tyra Munoz MD documented in this encounterC[facility]03-31-2025 NoteHNO ID: [id number] Author: TYRA MUNOZ MD Service: ? Author Type: Physician Type: Progress Notes Filed: 11/14/2024 15:51 Note Text: Chief Complaint Patient presents with: F/U 6 Month HPI Valdo Gomez is a 88 year old male who presents here today for 6 month follow up. No bowel, Gi, or urinary issues. Does get up 3-4 x to urinate per night. Follows with Dr. Hernandez (has not seen him in quite some time), urologist for bladder cancer. CKD: GFR at 60 and stable; monitored with labs. HTN: Denies checking BP at home. Denies any chest pains, dizziness, or SOB. Taking Coreg 3.125 mg BID. Some swelling in feet and ankles, no SOB Gout: Stable with Allopurinol 300 mg daily. Uses Prednisone as needed for flare ups. Lipid: Taking Pravastatin 20 mg daily and ASA 81 mg daily. Tolerating medication well. Tries to watch diet, eats fairly healthy. Not exercising as much, was using a stationary bike but made his legs sore. Glucose - Checks sugars at home, occasionally. Recent check at home was 111. On on medications at this time. notes that pt had a bloody nose recently. Notes some increased edema in b/l feet. Still able to wear his shoes. Using a rollator today to help with ambulating. Issues with arthritis pain, states that it gets harder to walk. Asking what he can really take when having arthritis pain. had to help him get into the tub. Reports that when he was treated previously with Prednisone this got rid of his general aches and pains, but pain returned when prednisone was stopped.. Past medical history, appointments, medications, allergies reviewed. Previous Medical History PAST MEDICAL HISTORY Diagnosis Date Arthropathy, unspecified, site unspecified CAD (coronary artery disease) Essential hypertension, benign History of recurrent deep vein thrombosis (DVT) 2002 Obesity, unspecified Other premature beats Unspecified hypertensive heart disease Previous Surgical History PAST SURGICAL HISTORY Procedure Laterality Date ARTHRP ACETBLR/PROX FEM PROSTC AGRFT/ALGRFT 02/16 L side ARTHRP ACETBLR/PROX FEM PROSTC AGRFT/ALGRFT 1987 R side CATARACT EXTRACTION HX Bilateral 2013 lens implants PAST SURGICAL HISTORY OF N/A 05/20/2018 Resection Bladder Tumor Transurethral PERC TRANSL COR ANGIO 06/13/2010 Percutaneous Transluminal Coronary Angio Stent REVJ TOT HIP ARTHRP BTH W/WO AGRFT/ALGRFT 07/19 R side RPR 1ST INGUN HRNA AGE 5 YRS/> REDUCIBLE 1996 R side RPR 1ST INGUN HRNA AGE 5 YRS/> REDUCIBLE 08/18 L side TONSILLECTOMY HX age 8 Family History No family history on file. Patient Allergies ALLERGIES Allergen Reactions Sharon Inhibitors Other: See Comments Severe hypotension Vioxx [Rofecoxib] GI Upset Current Medications Current Outpatient Medications on File Prior to Visit Medication Sig allopurinol (ZYLOPRIM) 300 mg tablet Take 1 tablet by mouth once daily. pravastatin (PRAVACHOL) 20 mg tablet Take 1 tablet by mouth once daily. carvedilol (COREG) 3.125 mg tablet Take 1 tablet by mouth two times a day. brinzolamide-brimonidine 1%-0.2 % Ophth Susp Use 1 Drop in both eyes two times a day. triamcinolone (KENALOG) 0.025 % cream Apply to affected area two times a day. Right ear. Amoxicillin 500 mg tablet Take 6 tablets one hour before the dentist and 2 tablets six hours afterward. nitroglycerin sublingual (NITROSTAT) 0.4 mg SL tablet Dissolve 1 tablet under the tongue as needed. DISSOLVE ON TONGUE FOR CHEST PAIN. IF NO PAIN RELIEF, CALL 911 bimatoprost (LUMIGAN) 0.01 % drop ophthalmic drops Use 1 Drop in both eyes daily at bedtime. Lutein 10 mg tab Take 10 mg by mouth once daily. multivitamin tablet Take 1 tablet by mouth once daily. niacin sustained release 500 mg tablet Take 1 tablet by mouth daily at bedtime. Aspirin 81 mg Tab Take 81 mg by mouth once daily. No current facility-administered medications on file prior to visit. Social History Social History Tobacco Use Smoking status: Never Smokeless tobacco: Never Vaping Use Vaping status: Never Used Substance Use Topics Alcohol use: No Drug use: No EXAM: BP 110/76 (BP Site: Left Arm, BP Position: Sitting, BP Cuff Size: Regular Adult) Pulse 70 Resp 18 Wt 87.3 kg (192 lb 7.4 oz) BMI 28.42 kg/m? General Appearance: Well appearing, alert, in no acute distress, well-hydrated, well nourished.. Lungs: Lungs clear to auscultation. No wheezing, rhonchi, rales.. Heart: RRR without murmur, gallop, or rubs. No ectopy. Extremities: Edema: mild bi in feel and lower legs. Health Maintenance List RSV Vaccine(1 - 1-dose 75+ series) Never done DTaP,Tdap,Td Vaccine(2 - Td or Tdap) due on 09/02/2021 Advance Directive Discussion due on 08/17/2024 Covid-19 Vaccine( season) due on 12/12/2024 Depression Screening due on 05/16/2025 Anxiety Screening due on 05/16/2025 LDL Cholesterol due on 11/02/2025 Diabetes Screening due on 11/03/2027 (more content not included)...[facility]01-10-2025 Telephone encounter Note* Telephone Encounter - Yuniel Bergman APRN.CNP - 08/26/2024 2:01 PM EST The following approved medication requests have been transmitted electronically. Requested Prescriptions Pending Prescriptions Disp Refills allopurinol (ZYLOPRIM) 300 mg tablet 90 tablet 3 Sig: Take 1 tablet by mouth once daily. pravastatin (PRAVACHOL) 20 mg tablet 90 tablet 3 Sig: Take 1 tablet by mouth once daily. carvedilol (COREG) 3.125 mg tablet 180 tablet 3 Sig: Take 1 tablet by mouth two times a day. Yuniel Bergman APRN.CNP [facility]01-10-2025 Miscellaneous Notes* Telephone Encounter - Yuniel Bergman APRN.CNP - 08/26/2024 2:01 PM EST The following approved medication requests have been transmitted electronically. Requested Prescriptions Pending Prescriptions Disp Refills allopurinol (ZYLOPRIM) 300 mg tablet 90 tablet 3 Sig: Take 1 tablet by mouth once daily. pravastatin (PRAVACHOL) 20 mg tablet 90 tablet 3 Sig: Take 1 tablet by mouth once daily. carvedilol (COREG) 3.125 mg tablet 180 tablet 3 Sig: Take 1 tablet by mouth two times a day. Yuniel Bergman APRN.CNP * Telephone Encounter - Stormy Lyle LPN - 08/26/2024 1:05 PM EST The patient has been identified by name and date of : Yes Caregiver verified no other encounters exist for this prescription request: Yes Caregiver confirmed with patient/requestor that no other refills are due, in the near future, with this provider at this time: Yes The last office visit in the department: 05/16/2024 Does the patient have a future office visit with this provider/department: Yes 11/14/2024 Requested Prescriptions Pending Prescriptions Disp Refills allopurinol (ZYLOPRIM) 300 mg tablet 90 tablet 3 Sig: Take 1 tablet by mouth once daily. pravastatin (PRAVACHOL) 20 mg tablet 90 tablet 3 Sig: Take 1 tablet by mouth once daily. carvedilol (COREG) 3.125 mg tablet 180 tablet 3 Sig: Take 1 tablet by mouth two times a day. Stormy Lyle LPN August 26, 2024 1:07 PM [facility] Telephone encounter Note * Telephone Encounter - Stormy Lyle LPN - 08/26/2024 1:05 PM EST The patient has been identified by name and date of : Yes Caregiver verified no other encounters exist for this prescription request: Yes Caregiver confirmed with patient/requestor that no other refills are due, in the near future, with this provider at this time: Yes The last office visit in the department: 05/16/2024 Does the patient have a future office visit with this provider/department: Yes 11/14/2024 Requested Prescriptions Pending Prescriptions Disp Refills allopurinol (ZYLOPRIM) 300 mg tablet 90 tablet 3 Sig: Take 1 tablet by mouth once daily. pravastatin (PRAVACHOL) 20 mg tablet 90 tablet 3 Sig: Take 1 tablet by mouth once daily. carvedilol (COREG) 3.125 mg tablet 180 tablet 3 Sig: Take 1 tablet by mouth two times a day. Stormy Lyle LPN August 26, 2024 1:07 PM [facility]09-30-2024 History of Present illness Narrative* Tyra Munoz MD - 05/16/2024 1:40 PM EDT Images from the original note were not included. Valdo Gomez is a 88 year old male here for a Medicare wellness visit. - Anxiety/Depression screening negative. Will get Flu and Covid in later May beginning of June. Medicare Health Risk Assessment General Health Good Exercise: Minutes/Day 0 min Exercise: Days/Week 0 days Alcohol: Daily Use Never Alcohol: Drinks/Day Patient does not drink Alcohol: 6 or more drinks Never Feel off balance Yes (occasional when getting up at night, denies any falls) Concerns: Teeth/Dentures No Concerns: Sexual function No Troubled by feelings None of the above Frequency: Eating healthy diet Nearly every day ADLs requiring help Grooming; Walking ( helps him due to shoulder ROM. Using a cane. No other assistance needed.) Safety precautions in home/vehicle Yes Smoke, vape, chews tobacco No Difficulty hearing Yes (One ear does better than the other, but overall stable) Difficulty seeing Yes (peripheral vision) Current Providers Specialists: I have reviewed specialist-related care of the patient in the medical record. Current care team: Patient Care Team: Tyra Munoz MD as PCP - General Dr. Marley [facility] [place] twice yearly. Dr. Mere Rahman [facility], twice yearly. Medical/Family history review Reviewed and updated problem list, medical/surgical/family/social history, medications, and allergies. Opioid use review Opioid Medications (last 90 days) No data to display Anxiety/Depression screening Recommendation: no further intervention at this time Cognitive screening Cognitive screening reviewed and No further action needed (score 3-5). Functional Observation Was the patient's Timed Up & Go test unsteady or >= 12 seconds? No, but uses a cane to help ambulate. Advance Care Planning Surrogate decision maker and/or advance care plan documented Measurements BP 124/72 (BP Site: Right Arm, BP Position: Sitting, BP Cuff Size: Regular Adult) Pulse 68 Resp18 Ht 175.3 cm (5' 9) Wt 84.9 kg (187 lb 2.7 oz) BMI 27.64 kg/m Vision Screening: Follows with optometry/ophthalmology Assessment/Plan Medicare annual wellness visit, subsequent (Z00.00) - Counseled on healthy diet and regular exercise - Fall avoidance information provided - Personalized prevention plan provided Tyra Munoz MD Chief Complaint Follow up HPI Valdo Gomez is a 88 year old male who presents here today for 6 month follow up. Here today with his . No bowel, Gi, or urinary issues. Has followed with Urologist Dr. Hernandez for bladder cancer. Not following currently. Gets up 3-4 x per night. Lipid: Taking Pravastatin 20 mg daily and ASA 81 mg daily. Tolerating medication well. Tries to watch diet, eats fairly healthy. HTN: Denies checking BP at home. Denies any chest pains, dizziness, or SOB. Taking Coreg 3.125 mg BID. Gout: Stable with Allopurinol 300 mg daily. Uses Prednisone as needed for flare ups. CKD: GFR at 60 and stable; monitored with labs. B/L shoulder arthritis, R>L. Past medical history, appointments, medications, allergies reviewed. Previous Medical History PAST MEDICAL HISTORY Diagnosis Date Arthropathy, unspecified, site unspecified CAD (coronary artery disease) Essential hypertension, benign History of recurrent deep vein thrombosis (DVT) 2002 Obesity, unspecified Other premature beats Unspecified hypertensive heart disease Previous Surgical History PAST SURGICAL HISTORY Procedure Laterality Date ARTHRP ACETBLR/PROX FEM PROSTC AGRFT/ALGRFT 02/16 L side ARTHRP ACETBLR/PROX FEM PROSTC AGRFT/ALGRFT 1987 R side CATARACT EXTRACTION HX Bilateral 2014 lens implants PAST SURGICAL HISTORY OF N/A 05/20/2018 Resection Bladder Tumor Transurethral PERC TRANSL COR ANGIO 06/13/2010 Percutaneous Transluminal Coronary Angio Stent REVJ TOT HIP ARTHRP BTH W/WO AGRFT/ALGRFT 07/19 R side RPR 1ST INGUN HRNA AGE 5 YRS/> REDUCIBLE 1996 R side RPR 1ST INGUN HRNA AGE 5 YRS/> REDUCIBLE 08/18 L side TONSILLECTOMY HX age 8 Family History No family history on file. Patient Allergies ALLERGIES Allergen Reactions Sharon Inhibitors Other: See Comments Severe hypotension Vioxx [Rofecoxib] GI Upset Current Medications Current Outpatient Medications on File Prior to Visit Medication Sig triamcinolone (KENALOG) 0.025 % cream Apply to affected area two times a day. Right ear. pravastatin (PRAVACHOL) 20 mg tablet Take 1 tablet by mouth once daily. carvedilol (COREG) 3.125 mg tablet Take 1 tablet by mouth two times a day. allopurinol (ZYLOPRIM) 300 mg tablet Take 1 tablet by mouth once daily. Amoxicillin 500 mg tablet Take 6 tablets one hour before the dentist and 2 tablets six hours afterward. nitroglycerin sublingual (NITROSTAT) 0.4 mg SL tablet Dissolve 1 tablet under the tongue as needed.DISSOLVE ON TONGUE FOR CHEST PAIN. IF NO PAIN RELIEF, CALL 911 bimatoprost (LUMIGAN) 0.01 % drop ophthalmic drops Use 1 Drop in both eyes daily at bedtime. Lutein 10 mg tab Take 10 mg by mouth once daily. multivitamin tablet Take 1 tablet by mouth once daily. niacin sustained release 500 mg tablet Take 1 tablet by mouth daily at bedtime. Aspirin 81 mg Tab Take 81 mg by mouth once daily. No current facility-administered medications on file prior to visit. Social History Social History Tobacco Use Smoking status: Never Smokeless tobacco: Never Vaping Use Vaping status: Never Used Substance Use Topics Alcohol use: No Drug use: No EXAM: BP 124/72 (BP Site: Right Arm, BP Position: Sitting, BP Cuff Size: Regular Adult) Pulse 68 Resp18 Ht 175.3 cm (5' 9) Wt 84.9 kg (187 lb 2.7 oz) BMI 27.64 kg/m General Appearance: Well appearing, alert, in no acute distress, well-hydrated, well nourished.. Lungs: Lungs clear to auscultation. No wheezing, rhonchi, rales.. Heart: RRR without murmur, gallop, or rubs. No ectopy. Extremities: Edema: Slight edema noted, wearing compression stockings. . Health Maintenance List Depression Screening Never done Anxiety Screening Never done RSV Vaccine(1 - 1-dose 75+ series) Never done DTaP,Tdap,Td Vaccine(2 - Td or Tdap) due on 09/02/2021 Covid-19 Vaccine( season) due on 04/17/2024 Influenza Vaccine(1) due on 04/17/2024 LDL Cholesterol due on 05/12/2025 Diabetes Screening due on 05/12/2027 Advance Directive Discussion Completed Shingrix Vaccine Completed Pneumococcal Vaccine: 65+ Completed Data reviewed Appointment on 05/12/2024 Component Date Value Cholesterol, Total 05/12/2024 116 Triglyceride 05/12/2024 71 HDL Cholesterol 05/12/2024 50 Non HDL Cholesterol 05/12/2024 66 Fasting Time 05/12/2024 12 VLDL Cholesterol 05/12/2024 14 TC:HDL Ratio 05/12/2024 2.32 LDL Cholesterol 05/12/2024 52 LDL:HDL Ratio 05/12/2024 1.04 Protein, Total 05/12/2024 6.9 Albumin 05/12/2024 3.7 (L) Calcium, Total 05/12/2024 9.1 Bilirubin, Total 05/12/2024 1.1 Alkaline Phosphatase 05/12/2024 140 (H) AST 05/12/2024 31 ALT 05/12/2024 21 Glucose 05/12/2024 100 (H) BUN 05/12/2024 27 (H) Creatinine 05/12/2024 1.12 Sodium 05/12/2024 141 Potassium 05/12/2024 4.0 Chloride 05/12/2024 103 CO2 05/12/2024 24 Anion Gap 05/12/2024 14 Estimated Glomerular Delvin* 05/12/2024 64 Uric Acid 05/12/2024 3.4 (L) ASSESSMENT/PLAN: 1. Essential hypertension, benign - ICD9: 401.1, ICD10: I10 - Controlled - Continue current medications - Recommend home blood pressure monitoring, to bring results to next visit - Encouraged sodium restriction, DASH or Mediterranean diet - Recommend regular aerobic exercise 2. Elevated glucose - ICD9: 790.29, ICD10: R73.09 - Stable - Continue watching diet and staying active. - Cont monitoring labs. 3. Coronary artery disease involving [place] coronary artery of [place] heart without angina pectoris- ICD9: 414.01, ICD10: I25.10 - Stable - Continue current medication regimen. 4. Pure hypercholesterolemia - ICD9: 272.0, ICD10: E78.00 - Stable - Continue current medication regimen. 5. Stage 3 chronic kidney disease, unspecified whether stage 3a or 3b CKD (HCC) - ICD9: 585.3, ICD10: N18.30 - Stable - Continue monitoring through routine labs. 6. Idiopathic gout, unspecified chronicity, unspecified site - ICD9: 274.9, ICD10: M10.00 - Stable with use of medication - Continue current medication regimen. - Watch diet. - Check Uric acid 7. Nocturia - ICD9: 788.43, ICD10: R35.1 - Stable, unchanged. 8. Screening for depression - ICD9: V79.0, ICD10: Z13.31 - Declines today - DEPRESSION SCREENING 9. Encounter for screening examination for other mental health and behavioral disorders - ICD9: V79.8, ICD10: Z13.39 - Declines today. - ANXIETY SCREENING Follow up in 6 months with labs. I agree with the Chief Complaint, ROS, and Past Histories independently gathered by the clinical support director and the remaining scribed note accurately describes my personal service to the patient. Medical Decision Making: Problems: Moderate: 2+ stable chronic illnesses Data: Unique test result(s) reviewed: 3+ Unique test(s) ordered: 3+ Risk: Moderate: Drug management Medical Decision Making Level: 4 - Moderate Tyra Munoz MD The documentation for this note was completed by Nicol Machado MA acting as scribe for Tyra Munoz MD. May 16, 2024 1:57 PM. Nicol Machado MA documented in this encounterC[facility]09-30-2024 NoteHNO ID: [id number] Author: TYRA MUNOZ MD Service: ? Author Type: Physician Type: Progress Notes Filed: 05/16/2024 14:28 Note Text: Valdo Gomez is a 88 year old male here for a Medicare wellness visit. - Anxiety/Depression screening negative. Will get Flu and Covid in later May beginning of June. Medicare Health Risk Assessment General Health Good Exercise: Minutes/Day 0 min Exercise: Days/Week 0 days Alcohol: Daily Use Never Alcohol: Drinks/Day Patient does not drink Alcohol: 6 or more drinks Never Feel off balance Yes (occasional when getting up at night, denies any falls) Concerns: Teeth/Dentures No Concerns: Sexual function No Troubled by feelings None of the above Frequency: Eating healthy diet Nearly every day ADLs requiring help Grooming; Walking ( helps him due to shoulder ROM. Using a cane. No other assistance needed.) Safety precautions in home/vehicle Yes Smoke, vape, chews tobacco No Difficulty hearing Yes (One ear does better than the other, but overall stable) Difficulty seeing Yes (peripheral vision) Current Providers Specialists: I have reviewed specialist-related care of the patient in the medical record. Current care team: Patient Care Team: Tyra Munoz MD as PCP - General Dr. Donell [facility] [place] twice yearly. Dr[facility] Mere Rahman [facility], twice yearly. Medical/Family history review Reviewed and updated problem list, medical/surgical/family/social history, medications, and allergies. Opioid use review Opioid Medications (last 90 days) No data to display Anxiety/Depression screening Recommendation: no further intervention at this time Cognitive screening Cognitive screening reviewed and No further action needed (score 3-5). Functional Observation Was the patient's Timed Up AND Go test unsteady or >= 12 seconds? No, but uses a cane to help ambulate. Advance Care Planning Surrogate decision maker and/or advance care plan documented Measurements BP 124/72 (BP Site: Right Arm, BP Position: Sitting, BP Cuff Size: Regular Adult) Pulse 68 Resp 18 Ht 175.3 cm (5' 9) Wt 84.9 kg (187 lb 2.7 oz) BMI 27.64 kg/m? Vision Screening: Follows with optometry/ophthalmology Assessment/Plan Medicare annual wellness visit, subsequent (Z00.00) - Counseled on healthy diet and regular exercise - Fall avoidance information provided - Personalized prevention plan provided Tyra Munoz MD Chief Complaint Follow up HPI Valdo Gomez is a 88 year old male who presents here today for 6 month follow up. Here today with his . No bowel, Gi, or urinary issues. Has followed with Urologist Dr. Hernandez for bladder cancer. Not following currently. Gets up 3-4 x per night. Lipid: Taking Pravastatin 20 mg daily and ASA 81 mg daily. Tolerating medication well. Tries to watch diet, eats fairly healthy. HTN: Denies checking BP at home. Denies any chest pains, dizziness, or SOB. Taking Coreg 3.125 mg BID. Gout: Stable with Allopurinol 300 mg daily. Uses Prednisone as needed for flare ups. CKD: GFR at 60 and stable; monitored with labs. B/L shoulder arthritis, R>L. Past medical history, appointments, medications, allergies reviewed. Previous Medical History PAST MEDICAL HISTORY Diagnosis Date Arthropathy, unspecified, site unspecified CAD (coronary artery disease) Essential hypertension, benign History of recurrent deep vein thrombosis (DVT) 2002 Obesity, unspecified Other premature beats Unspecified hypertensive heart disease Previous Surgical History PAST SURGICAL HISTORY Procedure Laterality Date ARTHRP ACETBLR/PROX FEM PROSTC AGRFT/ALGRFT 02/16 L side ARTHRP ACETBLR/PROX FEM PROSTC AGRFT/ALGRFT 1987 R side CATARACT EXTRACTION HX Bilateral 2014 lens implants PAST SURGICAL HISTORY OF N/A 05/20/2018 Resection Bladder Tumor Transurethral PERC TRANSL COR ANGIO 06/13/2010 Percutaneous Transluminal Coronary Angio Stent REVJ TOT HIP ARTHRP BTH W/WO AGRFT/ALGRFT 07/19 R side RPR 1ST INGUN HRNA AGE 5 YRS/> REDUCIBLE 1996 R side RPR 1ST INGUN HRNA AGE 5 YRS/> REDUCIBLE 08/18 L side TONSILLECTOMY HX age 8 Family History No family history on file. Patient Allergies ALLERGIES Allergen Reactions Sharon Inhibitors Other: See Comments Severe hypotension Vioxx [Rofecoxib] GI Upset Current Medications Current Outpatient Medications on File Prior to Visit Medication Sig triamcinolone (KENALOG) 0.025 % cream Apply to affected area two times a day. Right ear. pravastatin (PRAVACHOL) 20 mg tablet Take 1 tablet by mouth once daily. carvedilol (COREG) 3.125 mg tablet Take 1 tablet by mouth two times a day. allopurinol (ZYLOPRIM) 300 mg tablet Take 1 tablet by mouth once daily. Amoxicillin 500 mg tablet Take 6 tablets one hour before the dentist and 2 tablets six hours afterward. nitroglycerin sublingual (NITROSTAT) 0.4 mg SL tablet Dissolv (more content not included)...[facility]03-07-2024 Miscellaneous Notes* Telephone Encounter - Jody Murphy APRN.CNP - 10/22/2023 10:14 AM EST The following approved medication requests have been transmitted electronically. Requested Prescriptions Pending Prescriptions Disp Refills pravastatin (PRAVACHOL) 20 mg tablet 90 tablet 3 Sig: Take 1 tablet by mouth once daily. carvedilol (COREG) 3.125 mg tablet 180 tablet 3 Sig: Take 1 tablet by mouth two times a day. allopurinol (ZYLOPRIM) 300 mg tablet 90 tablet 3 Sig: Take 1 tablet by mouth once daily. Jody Murphy APRN.CNP * Telephone Encounter - Nicol Machado MA - 10/22/2023 9:42 AM EST Pt in office today stating that spouse needs refills on 3 medications to [facility]. Nicol Machado Ma documented in this encounterCrystal [facility]09-28-2023 Instructions* Patient Instructions* Nicol Machado Ma - 05/14/2023 4:07 PM EDT For diarrhea you can use over the counter Imodium. Instructions are written on the box. You can usethis as needed to help with diarrhea symptoms. If symptoms worsen you can call the office or send amychart message updating us on the issue. documented in this encounterCrystal [facility]09-28-2023 History of Present illness Narrative* Tyra Munoz MD - 05/14/2023 4:00 PM EDT Chief Complaint Patient presents with: F/U 6 Month HPI Valdo Gomez is a 87 year old male who presents here today for a 6 month follow up. Pt here today for his 6 month follow up. Here today with his . Using a cane to ambulate. 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 GI/Uro - Notes over the past 6 weeks he's had a few episodes of diarrhea that would last for a couple days and needing to go frequently. Denies having any abdominal pain or cramping. Denies any bloodin his stool. Unsure if this is related to eating too much fresh fruit or due to something else. Reports always having soft stool. Denies taking anything for it, unsure of what he's supposed to take.At this time not having any issues. Previously followed with Urology, Dr. Hernandez for bladder cancer, but he left [facility], no f/u at this time. Reports getting up a couple times at night to urinate. HTN - Checks BP occasionally at home, 90-100/60-70, occasionally higher. Denies any chest pain, sobor dizziness. Follows with [facility], but has not been there in quite some time since left. On current regimen of Coreg 3.125 mg 1 tab po bid. CKD - Stable, monitored routinely through labs. Lipids - Tries to watch his diet. Exercises by riding his stationary bike during the cold, winter months. 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 Currently taking Pravastatin 20 mg once daily and ASA 81 mg daily. Tolerating medications. Gout - Stable, no flare ups with use of Allopurinol 300 mg once daily. Uses Prednisone prn occasionally. HM - Adv Dir/Living Will scanned into chart. Received Shingrix vaccine. Receives Flu shot in the later part of May. Plans to do the same with the Covid Booster shot as well. Past medical history, appointments, medications, allergies reviewed. Previous Medical History PAST MEDICAL HISTORY Diagnosis Date Arthropathy, unspecified, site unspecified CAD (coronary artery disease) Essential hypertension, benign History of recurrent deep vein thrombosis (DVT) 2002 Obesity, unspecified Other premature beats Unspecified hypertensive heart disease Previous Surgical History PAST SURGICAL HISTORY Procedure Laterality Date ARTHRP ACETBLR/PROX FEM PROSTC AGRFT/ALGRFT 02/16 L side ARTHRP ACETBLR/PROX FEM PROSTC AGRFT/ALGRFT 1987 R side CATARACT EXTRACTION HX Bilateral 2014 lens implants PAST SURGICAL HISTORY OF N/A 05/20/2018 Resection Bladder Tumor Transurethral PERC TRANSL COR ANGIO 06/13/2010 Percutaneous Transluminal Coronary Angio Stent REVJ TOT HIP ARTHRP BTH W/WO AGRFT/ALGRFT 07/19 R side RPR 1ST INGUN HRNA AGE 5 YRS/> REDUCIBLE 1996 R side RPR 1ST INGUN HRNA AGE 5 YRS/> REDUCIBLE 08/18 L side TONSILLECTOMY HX age 8 Family History No family history on file. Patient Allergies ALLERGIES Allergen Reactions Sharon Inhibitors Other: See Comments Severe hypotension Sensitive To Vioxx * STOMACH SORE, NAUSEA Current Medications Current Outpatient Medications on File Prior to Visit Medication Sig Amoxicillin 500 mg tablet Take 6 tablets one hour before the dentist and 2 tablets six hours afterward. pravastatin (PRAVACHOL) 20 mg tablet Take 1 tablet by mouth once daily. carvedilol (COREG) 3.125 mg tablet Take 1 tablet by mouth twice daily. allopurinol (ZYLOPRIM) 300 mg tablet Take 1 tablet by mouth once daily. nitroglycerin sublingual (NITROSTAT) 0.4 mg SL tablet Dissolve 1 tablet under the tongue as needed.DISSOLVE ON TONGUE FOR CHEST PAIN. IF NO PAIN RELIEF, CALL 911 triamcinolone (KENALOG) 0.025 % cream Apply to affected area twice daily. Right ear. cyanocobalamin (VITAMIN B-12) 500 mcg tab tab(s) Take by mouth once daily. bimatoprost (LUMIGAN) 0.01 % drop ophthalmic drops Use 1 Drop in both eyes daily at bedtime. Lutein 10 mg tab Take 10 mg by mouth once daily. multivitamin tablet Take 1 tablet by mouth once daily. niacin sustained release 500 mg tablet Take 1 tablet by mouth daily at bedtime. Aspirin 81 mg Tab Take 81 mg by mouth once daily. No current facility-administered medications on file prior to visit. Social History Social History Tobacco Use Smoking status: Never Smokeless tobacco: Never Vaping Use Vaping Use: Never used Substance Use Topics Alcohol use: No Drug use: No EXAM: BP 126/78 (BP Site: Left Arm, BP Position: Sitting, BP Cuff Size: Regular Adult) Pulse 72 Resp 18 Wt 82.1 kg (181 lb) BMI 24.55 kg/m General Appearance: Well appearing, alert, in no acute distress, well-hydrated, well nourished.. Lungs: Lungs clear to auscultation. No wheezing, rhonchi, rales.. Heart: RRR without murmur, gallop, or rubs. No ectopy. Abdomen: Normal abdominal exam, Abdomen soft, non-tender. Bowel sounds normal. No masses, organomegaly. Health Maintenance List Shingrix Vaccine(1 of 2) Never done DTaP,Tdap,Td Vaccine(2 - Td or Tdap) due on 09/02/2021 Advance Directive Discussion due on 08/17/2022 Covid-19 Vaccine(6 - Pfizer series) due on 10/05/2022 Influenza Vaccine(1) due on 04/17/2023 LDL Cholesterol due on 10/31/2023 Diabetes Screening due on 10/30/2025 Depression Assessment Completed Pneumococcal Vaccine: 65+ Completed Data reviewed Appointment on 05/11/2023 Component Date Value Cholesterol, Total 05/11/2023 121 Triglyceride 05/11/2023 70 HDL Cholesterol 05/11/2023 52 Non HDL Cholesterol 05/11/2023 69 Fasting Time 05/11/2023 12 VLDL Cholesterol 05/11/2023 14 TC:HDL Ratio 05/11/2023 2.33 LDL Cholesterol 05/11/2023 55 LDL:HDL Ratio 05/11/2023 1.06 Protein, Total 05/11/2023 6.8 Albumin 05/11/2023 3.9 Calcium, Total 05/11/2023 9.4 Bilirubin, Total 05/11/2023 0.9 Alkaline Phosphatase 05/11/2023 154 (H) AST 05/11/2023 29 ALT 05/11/2023 19 Glucose 05/11/2023 104 (H) BUN 05/11/2023 31 (H) Creatinine 05/11/2023 1.06 Sodium 05/11/2023 139 Potassium 05/11/2023 4.0 Chloride 05/11/2023 104 CO2 05/11/2023 23 Anion Gap 05/11/2023 12 Estimated Glomerular Delvin* 05/11/2023 68 Uric Acid 05/11/2023 3.4 (L) ASSESSMENT/PLAN: 1. Essential hypertension, benign - ICD9: 401.1, ICD10: I10 (primary diagnosis) - Controlled - Continue current medications - Recommend home blood pressure monitoring, to bring results to next visit - Encouraged sodium restriction, DASH or Mediterranean diet - Recommend regular aerobic exercise 2. Stage 3 chronic kidney disease, unspecified whether stage 3a or 3b CKD (HCC) - ICD9: 585.3, ICD10: N18.30 - Stable, cont to monitor through routine labs. 3. Elevated glucose - ICD9: 790.29, ICD10: R73.09 - Cont monitoring - Watch diet and stay active 4. Pure hypercholesterolemia - ICD9: 272.0, ICD10: E78.00 - Labs stable - Continue watching diet and staying active - Continue current medication regimen. 5. Coronary artery disease involving [place] coronary artery of [place] heart without angina pectoris- ICD9: 414.01, ICD10: I25.10 - Stable, continue current medication - Continue watching diet and staying active. 6. Idiopathic gout, unspecified chronicity, unspecified site - ICD9: 274.9, ICD10: M10.00 - Stable on current regimen - Continue current medication regimen. 7. Nocturia - ICD9: 788.43, ICD10: R35.1 - Continue to monitor 8. Intermittent diarrhea - ICD9: 787.91, ICD10: R19.7 - Possible food related - Discussed using Imodium as needed for symptoms. - If symptoms worsen to update office. 6 mo f/u with labs. I agree with the Chief Complaint, ROS, and Past Histories independently gathered by the clinical support director and the remaining scribed note accurately describes my personal service to the patient. Medical Decision Making: Problems: Moderate: 2+ stable chronic illnesses Data: Unique test result(s) reviewed: 3+ Unique test(s) ordered: 3+ Risk: Moderate: Drug management Medical Decision Making Level: 4 - Moderate Tyra Munoz MD The documentation for this note was completed by Nicol Machado Ma acting as scribe for Tyra Munoz MD. May 14, 2023 3:55 PM. Nicol Machado Ma [facility] History of Past illness Narrative* Problem Noted Date Diagnosed Date Resolved Date Malignant neoplasm of urinar y bladder, unspecified site 05/14/2023 11/12/2023 Last Assessment & Plan: Stable Chronic kidney disease, stage I 11/19/2006 11/21/2008 Obesity, unspecified 05/27/2005 012 Generalized osteoarthrosis, unspecified site 5 11/19/2006 documented as of this encounter (statuses as of 11/20/2023) [facility] Miscellaneous Notes* Telephone Encounter - Tyra Munoz MD - 12/18/2022 1:38 PM EDT Rx sent to [facility] Tyra Munoz MD * Telephone Encounter - Meyl Oliveros - 12/18/2022 9:20 AM EDT Valdo Gomez is calling Tyra Munoz MD today to request a order for shingrix vaccine to be sent to [facility] Patient has been identified by name and birthdate. Duration of symptoms: N/A Person calling: spouse: Ramy Call patient at: at home [phone] (home) [phone] (cell) Was an appointment scheduled: No Closing statement: Results or non-symptom based questions: Thank you for calling [facility], your call will be returned within the next business day. Mely Oliveros documented in this encounterC[facility]03-20-2023 History of Present illness Narrative* Tyra Munoz MD - 11/03/2022 1:40 PM EDT Chief Complaint Patient presents with: 6 Month Exam HPI Valdo Gomez is a 87 year old male who presents here today for 6 month follow up. No bowel, Gi, or urinary concerns. He does get up a few times a night to urinate. Follows with Dr. Hernandez, Urology. Lipid: Tries to watch diet and exercises on stationary bike during the winter months. Is taking Pravastatin 20 mg daily, tolerating well. No myalgia or gi upset. Also taking 81 mg Aspirin. HTN: Checks BP occ at home, not often but stable with he does check it. [facility] No chest pains, dizziness, or SOB. Taking Coreg 3.125 mg BID. CKD: Monitored regularly with labs. Gout: Stable with Allopurinol 300 mg once daily. Past medical history, appointments, medications, allergies reviewed. Previous Medical History PAST MEDICAL HISTORY Diagnosis Date Arthropathy, unspecified, site unspecified CAD (coronary artery disease) Essential hypertension, benign History of recurrent deep vein thrombosis (DVT) 2002 Obesity, unspecified Other premature beats Unspecified hypertensive heart disease Previous Surgical History PAST SURGICAL HISTORY Procedure Laterality Date ARTHRP ACETBLR/PROX FEM PROSTC AGRFT/ALGRFT 02/16 L side ARTHRP ACETBLR/PROX FEM PROSTC AGRFT/ALGRFT 1987 R side CATARACT EXTRACTION HX Bilateral 2014 lens implants PAST SURGICAL HISTORY OF N/A 05/20/2018 Resection Bladder Tumor Transurethral PERC TRANSL COR ANGIO 06/13/2010 Percutaneous Transluminal Coronary Angio Stent REVJ TOT HIP ARTHRP BTH W/WO AGRFT/ALGRFT 07/19 R side RPR 1ST INGUN HRNA AGE 5 YRS/> REDUCIBLE 1996 R side RPR 1ST INGUN HRNA AGE 6 YRS/> REDUCIBLE 08/18 L side TONSILLECTOMY HX age 8 Family History No family history on file. Patient Allergies ALLERGIES Allergen Reactions Sharon Inhibitors Other: See Comments Severe hypotension Sensitive To Vioxx * STOMACH SORE, NAUSEA Current Medications Current Outpatient Medications on File Prior to Visit Medication Sig pravastatin (PRAVACHOL) 20 mg tablet Take 1 tablet by mouth once daily. carvedilol (COREG) 3.125 mg tablet Take 1 tablet by mouth twice daily. allopurinol (ZYLOPRIM) 300 mg tablet Take 1 tablet by mouth once daily. nitroglycerin sublingual (NITROSTAT) 0.4 mg SL tablet Dissolve 1 tablet under the tongue as needed.DISSOLVE ON TONGUE FOR CHEST PAIN. IF NO PAIN RELIEF, CALL 911 triamcinolone (KENALOG) 0.025 % cream Apply to affected area twice daily. Right ear. Amoxicillin 500 mg tablet Take 6 tablets one hour before the dentist and 2 tablets six hours afterward. cyanocobalamin (VITAMIN B-12) 500 mcg tab tab(s) Take by mouth once daily. bimatoprost (LUMIGAN) 0.01 % drop ophthalmic drops Use 1 Drop in both eyes daily at bedtime. Lutein 10 mg tab Take 10 mg by mouth once daily. Brimonidine-Timolol 0.2-0.5 % drop Use 1 Drop in both eyes twice daily. multivitamin tablet Take 1 tablet by mouth once daily. niacin sustained release 500 mg tablet Take 1 tablet by mouth daily at bedtime. Aspirin 81 mg Tab Take 81 mg by mouth once daily. No current facility-administered medications on file prior to visit. Social History Social History Tobacco Use Smoking status: Never Smokeless tobacco: Never Vaping Use Vaping Use: Never used Substance Use Topics Alcohol use: No Drug use: No EXAM: BP 120/76 Pulse 66 Resp 16 Wt 83.1 kg (183 lb 3.2 oz) BMI 24.85 kg/m General Appearance: Well appearing, alert, in no acute distress, well-hydrated, well nourished.. Lungs: Lungs clear to auscultation. No wheezing, rhonchi, rales.. Heart: RRR without murmur, gallop, or rubs. No ectopy. Health Maintenance List SHINGRIX VACCINE(1 of 2) Never done DTAP,TDAP,TD(2 - Td or Tdap) due on 09/02/2021 COVID-19 VACCINE(5 - Booster for Pfizer series) due on 03/21/2022 INFLUENZA(1) due on 04/17/2022 ADVANCE DIRECTIVE DISCUSSION due on 08/17/2022 DEPRESSION ASSESSMENT Never done LDL CHOLESTEROL due on 04/29/2023 DIABETES SCREEN due on 04/29/2025 PNEUMOCOCCAL: 65+ Completed Data reviewed Appointment on 10/30/2022 Component Date Value Uric Acid 10/30/2022 3.2 (A) Protein, Total 10/30/2022 7.3 Albumin 10/30/2022 4.1 Calcium, Total 10/30/2022 9.7 Bilirubin, Total 10/30/2022 1.0 Alkaline Phosphatase 10/30/2022 123 (A) AST 10/30/2022 35 ALT 10/30/2022 23 Glucose 10/30/2022 109 (A) BUN 10/30/2022 30 (A) Creatinine 10/30/2022 1.09 Sodium 10/30/2022 142 Potassium 10/30/2022 4.3 Chloride 10/30/2022 106 (A) CO2 10/30/2022 25 Anion Gap 10/30/2022 11 Estimated Glomerular Delvin* 10/30/2022 66 Cholesterol, Total 10/30/2022 124 Triglyceride 10/30/2022 73 HDL Cholesterol 10/30/2022 53 Non HDL Cholesterol 10/30/2022 71 Fasting Time 10/30/2022 14 VLDL Cholesterol 10/30/2022 15 TC:HDL Ratio 10/30/2022 2.34 LDL Cholesterol 10/30/2022 56 LDL:HDL Ratio 10/30/2022 1.06 WBC 10/30/2022 5.81 RBC 10/30/2022 4.12 (A) Hemoglobin 10/30/2022 14.4 Hematocrit 10/30/2022 44.1 MCV 10/30/2022 107.0 (A) MCH 10/30/2022 35.0 (A) MCHC 10/30/2022 32.7 RDW-CV 10/30/2022 13.4 Platelet Count 10/30/2022 124 (A) MPV 10/30/2022 11.9 Absolute nRBC 10/30/2022 <0.01 ASSESSMENT/PLAN: 1. Essential hypertension, benign - ICD9: 401.1, ICD10: I10 (primary diagnosis) - good control - Continue current medication(s) - Recommended regular aerobic exercise. - Recommend home blood pressure monitoring, to bring results in on next visit - Goal of BP <130/80 2. S/P bilateral hip replacements - ICD9: V43.64, ICD10: Z96.643 - AMOXICILLIN 500 MG TABLET 3. Coronary artery disease involving [place] coronary artery of [place] heart without angina pectoris- ICD9: 414.01, ICD10: I25.10 Continue current medications. Continue with Cardio 4. Pure hypercholesterolemia - ICD9: 272.0, ICD10: E78.00 Continue current medications. 5. Stage 3 chronic kidney disease, unspecified whether stage 3a or 3b CKD (HCC) - ICD9: 585.3, ICD10: N18.30 Continue to monitor 6. Idiopathic gout, unspecified chronicity, unspecified site - ICD9: 274.9, ICD10: M10.00 Stable Continue current medications. 7. Osteoarthrosis, unspecified whether generalized or localized, unspecified site - ICD9: 715.90, ICD10: M19.90 Follow up in 6 months with fasting labs prior. I agree with the Chief Complaint, ROS, and Past Histories independently gathered by the clinical support director and the remaining scribed note accurately describes my personal service to the patient. Medical Decision Making: Problems: Moderate: 2+ stable chronic illnesses Data: Unique test result(s) reviewed: 3+ Unique test(s) ordered: 3+ Risk: Moderate: Drug management Medical Decision Making Level: 4 - Moderate Tyra Munoz MD The documentation for this note was completed by Marilin Olsen Ma acting as scribe for Tyra Munoz MD. November 03, 2022 1:27 PM. Marilin Olsen Ma documented in this encounterC[facility]04-[facility]-2007 History of Past illness Narrative* Problem Noted Date Resolved Date Chronic kidney disease, stage I 11/19/2006 11/21/2008 Obesity, unspecified 05/27/2005 09/02/2011 Generalized osteoarthrosis, unspecified site 06/200511/19/2006 documented as of this encounter (statuses as of 11/04/2022) [facility] History of Past illness Narrative* Problem Noted Date Resolved Date Chronic kidney disease, stage I 11/19/2006 11/21/2008 Obesity, unspecified 05/27/2005 09/02/2011 Generalized osteoarthrosis, unspecified site 06/200511/19/2006 documented as of this encounter (statuses as of 12/18/2022) [place] [address]-05-2007 History of Past illness Narrative* Problem Noted Date Diagnosed Date Resolved Date Chronic kidney disease, stage I 11/19/2006 11/21/2008 Obesity, unspecified 05/27/2005 012 Generalized osteoarthrosis, unspecified site 5 11/19/2006 documented as of this encounter (statuses as of 05/15/2023) [facility] Author Tyra Ridley [facility] Note Date/Time February 13, 2025 2:22 pm [facility] Medical Records Department [address] [place] [address] Instructions for Home/Discharge Instructions 02/13/25 1415 MR#: [id number] Acct: [id number] Name: VALDO GOMEZ Rep #:[id number] : 1935 89 From: Tyra Ridley DO PCP: Dr. Tyra Munoz MD Status:AD M IN Discharge Instructions Diet Discharge Diet: No restrictions DC O2, CPAP, BIPAP needs Home O2 Discharge instructions: No Dressing / Incision Discharge Activity: Return to Normal Activity Weight Bearing Status: Full weight bearing Follow Up Care Test Results: Test results from this visit will be discussed in further detail at your follow- up appointment, if applicable. Discharge Plan Admission Admit Date/Time: 02/09/25 15:37 Primary Reason for Your Visit: Urinary tract infection, low blood pressure Attending Provider: Tyra Ridley Primary Care Provider: Tyra Munoz Consulting Providers: Ariela Luciano Discharge Orders/Prescriptions Prescriptions: New ciprofloxacin HCl 500 mg Tablet 500 mg PO BID Qty: 7 0RF Rx Instructions: Start in the evening of 02/13/2025 furosemide [Lasix] 40 mg tablet 40 mg PO DAILY Qty: 1 0RF potassium chloride [K-Tab] 20 mEq tablet extended release 20 meq PO DAILY Qty: 1 0RF phenazopyridine [Pyridium] 100 mg tablet 100 mg PO TID Qty: 9 0RF Continued pravastatin 20 mg tablet 20 mg PO DAILY allopurinol 300 mg tablet 300 mg PO DAILY nitroglycerin 0.4 mg tablet, sublingual 0.4 mg SUBLINGUAL Q5-15M PRN (Reason: chest pain) niacin [Niaspan Extended-Release] 500 mg tablet extended release 24 hr 500 mg PO QHS carvedilol [Coreg] 3.125 mg tablet 3.125 mg PO BID amoxicillin 500 mg tablet 2,000 mg PO DAILY PRN (Reason: DENTIST) Patient Comments: 30-60 minutes prior to dental procedure/ONLY WHEN HE GOES TO DENTIST. Lumigan 0.01 % drops 1 drp OPHTHALMIC QHS Rx Instructions: 1 DROP IN BOTH EYES Centrum Silver Men 300-600-300 mcg tablet 1 tab PO DAILY Simbrinza 1-0.2 % drops,suspension 1 drp OPHTHALMIC BID triamcinolone acetonide 0.025 % cream 1 applic topical BID Patient Comments: APPLY TO RIGHT EAR lutein 10 mg tablet 10 mg PO DAILY Rx Instructions: give with meal/snack Eliquis 2.5 mg tablet 2.5 mg PO BID Qty: 60 0RF Discontinued furosemide [Lasix] 40 mg tablet 40 mg PO BID Rx Instructions: one tablet in the AM and one tablet 4-6 hours later potassium chloride 20 mEq Tablet,Er Particles/Crystals 20 meq PO BIDCM 30 Days Qty: 60 0RF Referrals / Follow Up: Tyra Munoz MD [Primary Care Provider] - See Referral Note (In 2 weeks) Disposition Disposition (needs filled in before D/C Order can be placed): Home, Self Care 02/13/25 1422<Electronically signed by Tyra Ridley DO>Tyra Ridley DO CC: Dr. Tyra Munoz MD; Dr. Ariela Luciano MD ~ Signed [facility] Work Phone: Evaluation note* Diagnosis Essential hypertension, benign- Primary S/P bilateral hip replacements Hip joint replacement by other means Coronary artery disease involving [place] coronary artery of [place] heart without angina pectoris Pure hypercholesterolemia Stage 3 chronic kidney disease, unspecified whether stage 3a or 3b CKD (HCC) Idiopathic gout, unspecified chronicity, unspecified site Osteoarthrosis, unspecified whether generalized or localized, unspecified site documented [facility] this encounter [facility]* Diagnosis Essential hypertension, benign- Primary Stage 3 chronic kidney disease, unspecified whether stage 3a or 3b CKD (HCC) Elevated glucose Other abnormal glucose Pure hypercholesterolemia Coronary artery disease involving [place] coronary artery of [place] heart without angina pectoris Idiopathic gout, unspecified chronicity, unspecified site Nocturia Intermittent diarrhea Malignant neoplasm of urinary bladder, unspecified site (HCC) [facility]* Diagnosis Pure hypercholesterolemia BENIGN HYPERTENSION Essential hypertension, benign Idiopathic gout, unspecified chronicity, unspecified site documented in this encounter [facility] note* Diagnosis Medicare annual wellness visit, subsequent- Primary Routine general medical examination at a health care facility Essential hypertension, benign Elevated glucose Other abnormal glucose Coronary artery disease involving [place] coronary artery of [place] heart without angina pectoris Pure hypercholesterolemia Stage 3 chronic kidney disease, unspecified whether stage 3a or 3b CKD (HCC) Idiopathic gout, unspecified chronicity, unspecified site Nocturia Screening for depression Encounter for screening examination for other mental health and behavioral disorders documented in this encounter [facility] note* Diagnosis Idiopathic gout, unspecified chronicity, unspecified site Pure hypercholesterolemia BENIGN HYPERTENSION Essential hypertension, benign documented in this encounter [facility] note* Diagnosis BENIGN HYPERTENSION- Primary Essential hypertension, benign Pure hypercholesterolemia Idiopathic gout, unspecified chronicity, 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 [place] heart without angina pectoris Elevated glucose Other abnormal glucose Stage 3 chronic kidney disease, unspecified whether stage 3a or 3b CKD (HCC) S/P bilateral hip replacements Hip joint replacement by other means Physical deconditioning Debility, unspecified Gait abnormality Abnormality of gait [facility]* Diagnosis Physical deconditioning Debility, unspecified Gait abnormality Abnormality of gait documented in this encounter [facility] note* Diagnosis SOB (shortness of breath)- Primary Shortness of breath Bilateral leg edema Edema Weight gain Abnormal weight gain Abnormal EKG Nonspecific abnormal electrocardiogram (ECG) (EKG) documented in this encounter [facility] note* Diagnosis Hospital discharge follow-up- Primary Other follow-up examination Acute congestive heart failure, unspecified heart failure type (HCC) Atrial fibrillation, unspecified type (HCC) Acute renal insufficiency Unspecified disorder of kidney and ureter Bilateral leg edema Edema SOB (shortness of breath) Shortness of breath [facility]* Diagnosis Acute congestive heart failure, unspecified heart failure type (HCC)- Primary Essential hypertension, benign Stage 3 chronic kidney disease, unspecified whether stage 3a or 3b CKD (HCC) Coronary artery disease involving [place] coronary artery of [place] heart without angina pectoris Atrial fibrillation, unspecified type (HCC) documented in this encounter [facility] note* Diagnosis Acute congestive heart failure, unspecified heart failure type (HCC)- Primary Atrial fibrillation, unspecified type (HCC) Essential hypertension, benign Stage 3 chronic kidney disease, unspecified whether stage 3a or 3b CKD (HCC) Skin ulcer, limited to breakdown of skin (HCC) documented in this encounter [facility] Author Ariela Luciano [facility] Note Date/Time February 09, 2025 3:46 pm [facility] Medical Records Department [address] [place] [address] H&P Exam - Hospitalist 02/09/25 1537 MR#: [id number] Acct: [id number] Name: VALDO GOMEZ Rep #:[id number] : 1935 89 From: Ariela Luciano MD PCP: Dr. Tyra Munoz MD Status:RE G ER Location: ED HPI - General General Date of Admission: 02/09/25 Date of Service: 02/09/25 Chief Complaint: Generalized weakness HPI Narrative VALDO GOMEZ, is a 89-year-old male history of A-fib on Eliquis, hypertension, CKD, gout, CAD, heart failure who presented [facility] ED 02/09/2025 with generalized weakness to the point he was unable to get out of bed. Yesterday around 4 PM he fell because he was so weak but did not hit his head or lose consciousness. Also complaining of painful urination. Additionally he does not have central air and has been very hot. In the ED patient afebrile, heart rate 75 with a blood pressure 84/44, respiratory rate 21with a pulse ox 99% on room air. CBC with white blood cell count of 10.3, hemoglobin 12.4, BMP with BUN of 41 and creatinine of 1.32 which is similar to previous. UA suspicious for infection. Troponin of 59. Lactic acid within normal limits. CT of the brain with no acute process, cervical CT with sclerosis of C3 and C5 vertebrae with recommendation to rule out metastatic deposit. Chest x-ray with small left pleural effusion with infiltrate versus atelectasis. Given patient's urinary symptoms with UA suspicious for UTI with suspected patient's generalized weakness was secondary to underlying urinary tract infection. Patient given IV fluids and hospitalist contacted for admission. Patient evaluated with family members at bedside. Patient has been somewhat generally weak for the past 2 days, on Thursday he had a temperature of 102 and had chills and sweats and has not been eating very well, fell yesterday due to weakness and today due to worsening weakness he came to the ED, daughter also feels like he cannot really hear them as well either. Patient denies any chest pain or shortness of breath, no abdominal pain, does have burning on urination but other than that, generalized weakness, fever 2 days ago he denies any other new or acute complaints [facility] Medical History (Updated 02/09/25 @ 15:[address] Ariela Luciano MD) Atherosclerosis of coronary artery of [place] heart without angina pectoris Coronary artery disease DVT (deep venous thrombosis) Gout Hyperlipidemia Hypertension Kidney disease Myocardial infarct Non-smoker Old inferior wall myocardial infarction On home oxygen therapy Home Medications ?Medication ?Instructions ?Recorded ?Last Taken ?Type allopurinol 300 mg tablet 300 mg PO DAILY 09/13/17 History amoxicillin 500 mg tablet 2,000 mg PO DAILY PRN DENTIS T 09/13/17 Unknown History bimatoprost 0.01 % eye drops 1 drp ophthalmic (eye) QH S 09/13/17 12/07/24 History (E[place]) carvedilol 3.125 mg tablet (Coreg) 3.125 mg PO BID 02/09/25 History [id number] 300 mcg-K 60 1 tab PO DAILY 09/13/17 02/09/25 History mcg-lycop 600 mcg-lutein 300 mcg tablet (Centrum Silver Men) niacin 500 mg tablet,extended 500 mg PO QHS 09/13/17 0 12/06/24 History release 24 hr (Niaspan) nitroglycerin 0.4 mg sublingual 0.4 mg sublingual Q5-1 5M PRN chest 09/13/17 Unknown History tablet pain pravastatin 20 mg tablet 20 mg PO DAILY 09/14/17/02/08 History brinzolamide 1 %-brimonidine 0.2 % 1 drp ophthalmic (e ye) BID 02/10/19 Unknown History eye drops,suspension (Simbrinza) apixaban 2.5 mg tablet (Eliquis) 2.5 mg PO BID #60 tab s 12/07/24 02/09/25 Rx lutein 10 mg tablet 10 mg PO DAILY 12/07/24 06/02/08 History potassium chloride 20 mEq 20 meq PO BIDCM 30 days #60 tabs 01/09/25 02/09/25 Rx tablet,extended release(part/cryst) furosemide 40 mg tablet (Lasix) 40 mg PO BID 01/27/25 02/09/25 History triamcinolone acetonide 0.025 % 1 applic topical BID 0 01/27/25 Unknown History topical cream Allergy/AdvReac Type Severity Reaction Status Date / Time SHARON Inhibitors AdvReac Hypotensive Verified 02/09/25 15:09 Family History Mother , AGe 71 Congestive heart failure Sister , Age 66 CAD (coronary artery disease) Breast cancer S/P CABG (coronary artery bypass graft) Surgical History H/O bilateral hip replacements H/O bilateral inguinal hernia repair H/O right coronary artery stent placement (06/13/10) History of coronary artery stent placement Social History household members: spouse housing: house current occupational status: retired Smoking Status: Never smoker ROS ROS Narrative General: Fever 2 days ago HENT: Denies headache, denies stuffy nose, denies sore throat EYES: Denies changes in vision Resp: Denies cough, denies any new shortness of breath Cardiac: Denies chest pain GI: Denies abdominal pain, denies changes in bowel, denies nausea/vomiting, has had poor p.o. intake : Denies changes in urination Extremity: Burning on urination MSK: Generalized weakness Neuro: Denies any numbness/tingling Heme: Denies any new bleeding Skin: Denies rashes Psychiatric: No complaints voiced Vital Signs Vital Signs Vital Signs: 02/09/25 11:21 02/09/25 11:46 02/09/25 11:51 Temperature 99 F 99 F Temperature Source Temporal Oral Pulse Rate 75 79 Respiratory Rate 21 H 23 H Blood Pressure 84/44 L 73/52 L Blood Pressure Mean 57 59 Pulse Ox 99 94 94 Oxygen Delivery Method Room Air Room Air Room Air Oxygen Flow Rate (L/min) 02/09/25 12:15 02/09/25 12:25 02/09/25 14:00 Temperature 99.1 F 98.9 F Temperature Source Oral Oral Pulse Rate 75 72 67 Respiratory Rate 19 H 16 13 Blood Pressure 82/52 L 82/52 L 85/60 L Blood Pressure Mean 62 62 68 Pulse Ox 94 Oxygen Delivery Method Nasal Cannula Oxygen Flow Rate (L/min) 2 02/09/25 15:00 Temperature 98.9 F Temperature Source Oral Pulse Rate 70 Respiratory Rate 18 Blood Pressure 83/51 L Blood Pressure Mean 61 Pulse Ox Oxygen Delivery Method Oxygen Flow Rate (L/min) Physical Exam Narrative General: Alert, answering questions appropriately, no apparent distress HEENT: Atraumatic, normocephalic, does have sunken appearing eyes which is not new Eyes: Anicteric, normal conjunctiva, extraocular movements grossly intact Neck: Supple Respiratory: Overall clear to auscultation bilaterally, normal respiratory effort Cardiovascular: A-fib with regular rate GI: Soft, nontender, nondistended Extremities: No edema Musculoskeletal: Moving all extremities Neuro: No overt focal neurological deficits Skin: No rashes appreciated Psych: Cooperative Results Lab / Micro Data 02/09/25 11:35 02/09/25 11:35 Labs: Laboratory Results - last 24 hr 02/09/25 11:35: WBC 10.3, RBC 3.43 L, Hgb 12.4 L, Hct 37.7 L, MCV 109.9 H, MCH 36.2 H, MCHC 32.9, RDW Std Deviation 65.1 H, RDW Coeff of Yanet 16.0 H, Plt Count 115 L, MPV 10.7, Immature Gran % (Auto) 0.400, Neut % (Auto) 80.1 H, Lymph % (Auto) 8.9 L, Floyd % (Auto) 10.2 H, Eos % (Auto) 0.2, Baso % (Auto) 0.2, Absolute Neuts (auto) 8.2 H, Absolute Lymphs (auto) 0.92, Nucleated RBC % 0, Anisocytosis RARE, PT 23.7 H, INR 2.1, APTT 37.3 H, Sodium 137, Potassium 4.4, Chloride 102, Carbon Dioxide 26.6, Anion Gap 8, BUN 41 H, Creatinine 1.32 H, EstGFR (MDRD) Non-Af 52 L, BUN/Creatinine Ratio 31.1 H, Glucose 143 H, Lactic Acid 2.0, Calcium 8.8, Total Bilirubin 1.18, AST 39 H, ALT 19, Alkaline Phosphatase 176 H, Troponin T High Sens 59 H* D, Total Protein 5.6 L, Albumin 2.6 L, Globulin 3.0, Albumin/Globulin Ratio 0.9 02/09/25 11:56: Urine Color Yellow, Urine Clarity Cloudy, Urine pH 6.0, Ur Specific [place] 1.020, Urine Protein 100 H, Urine Glucose (UA) Normal, Urine Ketones Negative, Urine Occult Blood 250 H, Urine Nitrite Negative, Urine Bilirubin Negative, Urine Urobilinogen Normal, Ur Leukocyte Esterase 500 H, Urine RBC 0 SEEN, Urine WBC >100 SEEN, Ur Squamous Epith Cells 0 SEEN, Urine Bacteria 2+, Urine Mucus 0 SEEN 02/09/25 13:51: Troponin T Hi Sens 2 Hr 53 H Imaging Radiology Impression Chest X-Ray 02/09/25 11:29 IMPRESSION: Small left pleural effusion with left basilar infiltration and/or atelectasis. Reading Location: [id number] Brain CT 02/09/25 12:19 IMPRESSION: CHRONIC CHANGES. NO ACUTE FINDINGS. Stable examination. Reading Location: [id number] Cervical Spine CT 02/09/25 12:19 IMPRESSION: DEGENERATIVE CHANGES OF THE CERVICAL SPINE. NO EVIDENCE OF SIGNIFICANT OSSEOUS CENTRAL CANAL OR NEURAL FORAMINAL STENOSIS. Sclerosis of the C3 and C5 vertebrae. Metastatic deposit should be ruled out. Reading Location: [id number] Assessment & Plan Assessment/Plan (1) UTI (urinary tract infection): PLAN: Plan # Generalized weakness suspect secondary to UTI -UA suspicious for UTI -Urine and blood cultures ordered and pending -Hydrating cautiously with IV fluids given heart failure history # Elevated troponin -No chest pain -Suspect this is secondary to underlying infection and hypotension -Initial troponin 59 with repeat of 53 - Patient to be monitored on telemetry # Hypotension -Suspect due to combination of infection and dehydration given lack of central air with significant heat -Does not meet other criteria though would be consistent with sepsis at this time -Patient receiving second bolus as his blood pressure remained low and on my evaluation blood pressure was 94/62, hence improving -Hold home antihypertensives - Will monitor patient closely in the ICU in the event patient is early sepsis and decompensates # C3 and C5 sclerosis -CT recommended MRI to rule out metastatic deposits -Suspect patient's weakness and falls are due to his UTI and low blood pressure in the cervical spine findings are incidental - Given patient's present clinical condition will defer MRI until patient clinically stable - Due to time constraints unable to discuss this finding and further management with family in the ED, this will ultimately need addressed moving forward # History of heart failure with unclear subtype -Echo last month with EF of 40% with mild to moderate global hypokinesis of the left ventricle, PASP of 46, and moderate mitral valve insufficiency -Daily weights, I's and O's -Holding home carvedilol and Lasix due to presenting problem and blood pressure # History of atrial fibrillation -Continue Eliquis -Holding Coreg due to patient's hypotension #Gout -Continue home allopurinol # History of CAD -With stent placement to RCA in 2009 -Patient on Eliquis and aspirin, will continue -Holding beta-sung due to hypotension # CKD stage III a -Appears to be at baseline -Avoid nephrotoxic agents -Daily BMPs #DVT ppx: Chronically on Eliquis Ariela Luciano MD CODE status: Discussed CODE status at length including difference between FULL code, DNR-CCA, and DNR-CC status. Following discussions about the differences inthese status, requested DNR/DNI. Advanced Care Planning Face to Face Time: 12 minutes. Charges/Coding Multi Select Codes Visit Charges Visit Charges: 97797 Init Hosp L2 Hospitalists' Procedures Procedures: 10111 Advncd Care Plan 30 Min 02/09/25 1542 <Electronically signed by Ariela Luciano MD> Cosigner Signature (if applicable): CC: Dr. Tyra Munoz MD; Dr. Ariela Luciano MD~ Signed [facility] Work Phone: Summary Purpose Family History Relationship Condition Age at Onset Recorded Date/T lucia mother Congestive heart failure Unknown sister Coronary artery disease Unknown Malignant neoplasm of breast Unknown Status post coronary artery bypass graft Unknown Advance Directives Documents on File Type Date Recorded Patient Anesthesiology Fellow Expl anation Advance Directive(s) 11/05/2010 Advance Directive(s) 10/01/2006 Documents on File Type Date Recorded Patient Anesthesiology Fellow Expl anation Advance Directive(s) 11/05/2010 Advance Directive(s) 10/01/2006 Advance Directive Response Recorded Date/ Time Do you have a Healthcare Pow er of [place]? No December 07, 2024 1:17pm Do you have a Healthcare Pow er of [place]? Yes January 06, 2025 4:57pm Name of Medical Power of [place]inger [place] Susan Gomez - January 06, 2025 4:57pm Advance Directive Response Recorded Date/ Time Do you have a Healthcare Pow er of [place]? No December 07, 2024 1:17pm Do you have a Healthcare Pow er of [place]? Yes January 06, 2025 4:57pm Name of Medical Power of [place] Susan Gomez - January 06, 2025 4:57pm Do you have a Healthcare Pow er of [place]? Yes February 09, 2025 12:22pm Advance Directive Response Recorded Date/ Time Do you have a Healthcare Pow er of [place]? No December 07, 2024 1:17pm Do you have a Healthcare Pow er of [place]? Yes January 06, 2025 4:57pm Name of Medical Power of [place] Susan Gomez - January 06, 2025 4:57pm Do you have a Healthcare Pow er of [place]? Yes February 09, 2025 4:36pm Name of Medical Power of [place] -Kat Sanders- Susan February 09, 2025 4:36pm Advance Directive Response Recorded Date/ Time Do you have a Healthcare Pow er of [place]? No December 07, 2024 1:17pm Do you have a Healthcare Pow er of [place]? Yes January 06, 2025 4:57pm Name of Medical Power of [place] Susan Gomez - January 06, 2025 4:57pm Do you have a Healthcare Pow er of [place]? Yes February 09, 2025 4:36pm Name of Medical Power of [place] -Kat Sanders- Susan February 09, 2025 4:36pm Do you have a Healthcare Pow er of [place]? Yes February 27, 2025 3:23pm Reason for Referral Specialty Diagnoses / Procedures Referred By Contjl t Referred To Contact Tyra Munoz MD [address] [place] [address] Referral ID Status Reason Start Date Expiration Date Visits Re quested Visits Authorized [id number] Closed 1 1 Chief Complaint and Reason for Visit Chief Complaint Admit Date Edema, SOB December 07, 2024 12: 38pm FLUID OVERLOAD January 06, 2025 3:46p m FLUID OVERLOAD January 07, 2025 9:34a m FLUID OVERLOAD January 08, 2025 7:35a m FLUID OVERLOAD January 09, 2025 8:06a m Reason for Visit Admit Date Atrial fibrillation, controlled December 3:46pm CHF (congestive heart failure) January 06, 2025 3:46pm Elevated troponin January 06, 2025 3:46p m Hypoxia January 06, 2025 3:46p m CKD (chronic kidney disease), stage III January 06, 2025 3:46pm Chief Complaint Admit Date Edema, SOB December 07, 2024 12: 38pm FLUID OVERLOAD January 06, 2025 3:46p m FLUID OVERLOAD January 07, 2025 9:34a m FLUID OVERLOAD January 08, 2025 7:35a m FLUID OVERLOAD January 09, 2025 8:06a m S/P [facility] 01/06 Fluid Overload January 27, 2 025 3:32pm Reason for Visit Admit Date Atrial fibrillation, controlled December 3:46pm CHF (congestive heart failure) January 06, 2025 3:46pm CKD (chronic kidney disease), stage III January 06, 2025 3:46pm Elevated troponin January 06, 2025 3:46p m Hypoxia January 06, 2025 3:46p m CKD (chronic kidney disease), stage III January 27, 2025 3:32pm Chief Complaint Admit Date Edema, SOB December 07, 2024 12: 38pm FLUID OVERLOAD January 06, 2025 3:46p m FLUID OVERLOAD January 07, 2025 9:34a m FLUID OVERLOAD January 08, 2025 7:35a m FLUID OVERLOAD January 09, 2025 8:06a m S/P [facility] 01/06 Fluid Overload January 27, 2 025 3:32pm LOW BLOOD PRESSURE, UTI February 09, 2025 3:37pm Reason for Visit Admit Date Atrial fibrillation, controlled December 3:46pm CHF (congestive heart failure) January 06, 2025 3:46pm CKD (chronic kidney disease), stage III January 06, 2025 3:46pm Elevated troponin January 06, 2025 3:46p m Hypoxia January 06, 2025 3:46p m CKD (chronic kidney disease), stage III January 27, 2025 3:32pm UTI (urinary tract infection) February 09, 2025 3:37pm Chief Complaint Admit Date Edema, SOB December 07, 2024 12: 38pm FLUID OVERLOAD January 06, 2025 3:46p m FLUID OVERLOAD January 07, 2025 9:34a m FLUID OVERLOAD January 08, 2025 7:35a m FLUID OVERLOAD January 09, 2025 8:06a m S/P [facility] 01/06 Fluid Overload January 27, 2 025 3:32pm LOW BLOOD PRESSURE, UTI February 09, 2025 3:37pm LOW BLOOD PRESSURE, UTI February 10, 2025 4:07pm LOW BLOOD PRESSURE, UTI February 12, 2025 5:43pm Chief Complaint Admit Date Edema, SOB December 07, 2024 12: 38pm FLUID OVERLOAD January 06, 2025 3:46p m FLUID OVERLOAD January 07, 2025 9:34a m FLUID OVERLOAD January 08, 2025 7:35a m FLUID OVERLOAD January 09, 2025 8:06a m S/P [facility] 01/06 Fluid Overload January 27, 2 025 3:32pm LOW BLOOD PRESSURE, UTI February 09, 2025 3:37pm LOW BLOOD PRESSURE, UTI February 10, 2025 4:07pm LOW BLOOD PRESSURE, UTI February 12, 2025 5:43pm LOW BLOOD PRESSURE, UTI February 13, 2025 2:22pm S/P [facility] 01/06 Fluid Overload February 15 3:03pm Chief Complaint Admit Date Edema, SOB December 07, 2024 12: 38pm FLUID OVERLOAD January 06, 2025 3:46p m FLUID OVERLOAD January 07, 2025 9:34a m FLUID OVERLOAD January 08, 2025 7:35a m FLUID OVERLOAD January 09, 2025 8:06a m S/P [facility] 01/06 Fluid Overload January 27, 2 025 3:32pm LOW BLOOD PRESSURE, UTI February 09, 2025 3:37pm LOW BLOOD PRESSURE, UTI February 10, 2025 4:07pm LOW BLOOD PRESSURE, UTI February 12, 2025 5:43pm LOW BLOOD PRESSURE, UTI February 13, 2025 2:22pm S/P [facility] 01/06 Fluid Overload February 15 3:03pm DIARRHEA, WEAKNESS, LOW BP February 27 5:53pm Reason for Visit Admit Date Atrial fibrillation, controlled December 3:46pm CHF (congestive heart failure) January 06, 2025 3:46pm CKD (chronic kidney disease), stage III January 06, 2025 3:46pm Elevated troponin January 06, 2025 3:46p m Hypoxia January 06, 2025 3:46p m Atrial fibrillation, controlled January 3:32pm Heart failure with preserved ejection fr action January 27, 2025 3:32pm H/O right coronary artery stent placemen t January 27, 2025 3:32pm Hypertension January 27, 2025 3:32 pm UTI (urinary tract infection) February 09, 2025 3:37pm Atrial fibrillation, controlled February 3:03pm CHF (congestive heart failure) February 15, 2025 3:03pm Malnutrition February 15, 2025 3:03p m Atherosclerosis of coronary artery of [place] heart without angina pectoris February 15, 2025 3:03pm CKD (chronic kidney disease), stage III February 15, 2025 3:03pm Hyperlipidemia February 15, 2025 3:03p m Hypertension February 15, 2025 3:03p m CHF (congestive heart failure) February 5:53pm Diarrhea February 27, 2025 5:53 pm Generalized weakness February 27, 2025 5:5 3pm Malnutrition February 27, 2025 5:53 pm Additional Source Comments (unrecognized sect ion and content) No Status Records FoundNo Status Records FoundNo Status Records FoundNo Status Records Found INFORMATION SOURCE (unrecogn ized section and content) DATE CREATED AUTHOR 02/08/2018 [facility] ([place]) DATE CREATED AUTHOR AUTHOR'S ORGANIZ ATION 06/17/2018 [facility] DATE CREATED AUTHOR AUTHOR'S ORGANIZ ATION 02/23/2025 [facility] DATE CREATED AUTHOR AUTHOR'S ORGANIZ ATION 02/23/2025 [facility] Source Comments (unrecognize d section and content) In the event this informatio n is protected by the Federal Confidentiality of Alcohol and Drug Abuse Patient Records regulations: The Federal rules restrict any use of the information to criminally investigate or prosecute any alcohol or drug abuse patient.[facility] Center[facility] the event this information is protected by the Federal Confidentiality of Alcohol and Drug Abuse Patient Records regulations: The Federal rules restrict any use of the information to criminally investigate or prosecute any alcohol or drug abuse patient.[facility] CenterIn the event this information is protected by the Federal Confidentiality of Alcohol and Drug Abuse Patient Records regulations: The Federal rules restrict any use of the information to criminally investigate or prosecute any alcohol or drug abuse patient.[facility] CenterIn the event this information is protected by the Federal Confidentiality of Alcohol and Drug Abuse Patient Records regulations: The Federal rules restrict any use of the information to criminally investigate or prosecute any alcohol or drug abuse patient.[facility] CenterIn the event this information is protected by the Federal Confidentiality of Alcohol and Drug Abuse Patient Records regulations: The Federal rules restrict any use of the information to criminally investigate or prosecute any alcohol or drug abuse patient.[facility] CenterIn the event this information is protected by the Federal Confidentiality of Alcohol and Drug Abuse Patient Records regulations: The Federal rules restrict any use of the information to criminally investigate or prosecute any alcohol or drug abuse patient.[facility] CenterIn the event this information is protected by the Federal Confidentiality of Alcohol and Drug Abuse Patient Records regulations: The Federal rules restrict any use of the information to criminally investigate or prosecute any alcohol or drug abuse patient.[facility] CenterIn the event this information is protected by the Federal Confidentiality of Alcohol and Drug Abuse Patient Records regulations: The Federal rules restrict any use of the information to criminally investigate or prosecute any alcohol or drug abuse patient.[facility] CenterIn the event this information is protected by the Federal Confidentiality of Alcohol and Drug Abuse Patient Records regulations: The Federal rules restrict any use of the information to criminally investigate or prosecute any alcohol or drug abuse patient.[facility] CenterIn the event this information is protected by the Federal Confidentiality of Alcohol and Drug Abuse Patient Records regulations: The Federal rules restrict any use of the information to criminally investigate or prosecute any alcohol or drug abuse patient.[facility] CenterIn the event this information is protected by the Federal Confidentiality of Alcohol and Drug Abuse Patient Records regulations: The Federal rules restrict any use of the information to criminally investigate or prosecute any alcohol or drug abuse patient.[facility] ClinicIn the event this information is protected by the Federal Confidentiality of Alcohol and Drug Abuse Patient Records regulations: The Federal rules restrict any use of the information to criminally investigate or prosecute any alcohol or drug abuse patient.[facility] CenterIn the event this information is protected by the Federal Confidentiality of Alcohol and Drug Abuse Patient Records regulations: The Federal rules restrict any use of the information to criminally investigate or prosecute any alcohol or drug abuse patient.[facility] CenterIn the event this information is protected by the Federal Confidentiality of Alcohol and Drug Abuse Patient Records regulations: The Federal rules restrict any use of the information to criminally investigate or prosecute any alcohol or drug abuse patient.[facility] CenterIn the event this information is protected by the Federal Confidentiality of Alcohol and Drug Abuse Patient Records regulations: The Federal rules restrict any use of the information to criminally investigate or prosecute any alcohol or drug abuse patient.[facility] CenterIn the event this information is protected by the Federal Confidentiality of Alcohol and Drug Abuse Patient Records regulations: The Federal rules restrict any use of the information to criminally investigate or prosecute any alcohol or drug abuse patient.[facility] CenterIn the event this information is protected by the Federal Confidentiality of Alcohol and Drug Abuse Patient Records regulations: The Federal rules restrict any use of the information to criminally investigate or prosecute any alcohol or drug abuse patient.[facility] CenterIn the event this information is protected by the Federal Confidentiality of Alcohol and Drug Abuse Patient Records regulations: The Federal rules restrict any use of the information to criminally investigate or prosecute any alcohol or drug abuse patient.[facility] CenterIn the event this information is protected by the Federal Confidentiality of Alcohol and Drug Abuse Patient Records regulations: The Federal rules restrict any use of the information to criminally investigate or prosecute any alcohol or drug abuse patient.[facility] CenterIn the event this information is protected by the Federal Confidentiality of Alcohol and Drug Abuse Patient Records regulations: The Federal rules restrict any use of the information to criminally investigate or prosecute any alcohol or drug abuse patient.[facility] Reason for Visit (unrecogniz ed section and content) Reason Comments 6 Month Exam Reason Comments Orders Reason Comments F/U 6 Month Reason Onset Date Comments Refill Request 10/22/2023 Reason Comments Medicare Wellness Exam Reason Onset Date Comments Refill Request 08/26/2024 Reason Comments F/U 6 Month Reason Comments PT Eval Physical Therapy Specialty Diagnoses / Procedures Referred By Contlj t Referred To Contact [facility] Diagnoses Physical deconditioning Gait abnormality Procedures CONSULT TO PHYSICAL THERAPY PHYSICAL THERAPY EVALUATION HIGH COMPLEX 45 MINS Tyra Munoz MD [address] [place] [address] Phone: tel: fax: [facility] [address] [place] [address] Referral ID Status Reason Start Date Expiration Date Visits Requested Visits Authorized [id number] Authorized Auto-Generat ed Referral 11/29/2024 01/24/2025 6 6 Reason Comments Shortness of Breath Bilateral Leg Swelling Reason Comments Breathing Problem SOB with activity an d bilateral lower extremity swelling Reason Comments Appointment Reason Comments Hospital Follow Up Reason Comments Follow Up 2 week Hospital Follow Up Reason Onset Date Comments Refill Request 01/24/2025 Reason Onset Date Comments Results 01/20/2025 Reason Comments Follow Up 2-3 weeks Reason Comments Patient Update Reason Comments Medication request for appetite Reason Comments Hospital F/U [facility] Care Teams (unrecognized sec tion and content) 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 Relationship Specialty Start Date End Date Tyra Munoz MD [address] [place] [address] PCP - General 06/28/09 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 Relationship Specialty Start Date End Date Tyra Munoz MD [address] [place] [address] PCP - General 06/28/09 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 Relationship Specialty Start Date End Date Tyra Munoz MD [address] [place] [address] PCP - General 06/28/09 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 Relationship Specialty Start Date End Date Tyra Munoz MD [address] [place] [address] PCP - General 06/28/09 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 Relationship Specialty Start Date End Date Tyra Munoz MD [address] [place] [address] PCP - General 06/28/09 Jody Murphy, ROSY.JUNIOR MECHANICAL ENGINEER [address] [place] [address] Gas Generator Operator Family Medicine 07/24/24 Yuniel Bergman NEURO OPHTHALMOLOGIST.JUNIOR MECHANICAL ENGINEER [address] [place] [address] Gas Generator Operator Family Medicine 08/02/24 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 Relationship Specialty Start Date End Date Tyra Munoz MD [address] [place] [address] PCP - General 06/28/09 Jody Murphy, NEURO OPHTHALMOLOGIST.JUNIOR MECHANICAL ENGINEER [address] [place] [address] Gas Generator Operator Family Medicine 07/24/24 Yuniel Bergman APRN.JUNIOR MECHANICAL ENGINEER [address] [place] [address] Gas Generator Operator Family Medicine 08/02/24 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 Relationship Specialty Start Date End Date Tyra Munoz MD [address] [place] [address] PCP - General 06/28/09 Jody Murphy APRN.JUNIOR MECHANICAL ENGINEER [address] [place] [address] Gas Generator Operator Family Medicine 07/24/24 Yuniel Bergman APRN.JUNIOR MECHANICAL ENGINEER [address] [place] [address] Gas Generator Operator Family Medicine 08/02/24 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 Relationship Specialty Start Date End Date Tyra Munoz MD [address] [place] [address] PCP - General 06/28/09 Jody Murphy NEURO OPHTHALMOLOGIST.JUNIOR MECHANICAL ENGINEER [address] [place] [address] [employer] [facility] 07/24/24 Yuniel Bergman APRN.JUNIOR MECHANICAL ENGINEER [address] [place] [address] [employer] [facility] 08/02/24 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 Relationship Specialty Start Date End Date Tyra Munoz MD [address] [place] [address] PCP - General 06/28/09 Jody Murphy APRN.JUNIOR MECHANICAL ENGINEER [address] [place] [address] Gas Generator Operator Family [facility] 07/24/24 Yuniel Bergman APRN.JUNIOR MECHANICAL ENGINEER [address] [place] [address] Gas Generator Operator [facility] 08/02/24 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 Relationship Specialty Start Date End Date Tyra Munoz MD [address] [facility] [place] [address] PCP - General 06/28/09 Jody Murphy APRN.JUNIOR MECHANICAL ENGINEER [address] [place] [address] Gas Generator Operator Family Medicine 07/24/24 Yuniel Bergman APRN.JUNIOR MECHANICAL ENGINEER [address] [place] [address] [facility] 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 Relationship Specialty Start Date End Date Tyra Munoz MD [address] [place] [address] PCP - General 06/28/09 Jody Murphy APRN.JUNIOR MECHANICAL ENGINEER [address] [place] [address] Gas Generator Operator [facility] 07/24/24 Yuniel Bergman NEURO OPHTHALMOLOGIST.JUNIOR MECHANICAL ENGINEER [address] [place] [address] [facility]24 Team Status: Active Member Role Status Dates Dr. Tyra Munoz MD Primary Care Provider Active Team Status: Inactive Member Role Status Dates Dr. Tyra Munoz MD Primary Care Provider Active Start: December 07, 2024 End: December 07, 2024 Dr. Colin Lee MD Attending Provider Active Start: December 07, 2024 End: December 07, 2024 Dr. Colin Lee MD Emergency Provider Active Start: December 07, 2024 End: December 07, 2024 Team Status: Inactive Member Role Status Dates Dr. Tyra Munoz MD Primary Care Provider Active Start: January 06, 2025 End: January 09, 2025 Dr. Bret Victoria DO Emergency Provider Active Start : January 06, 2025 End: January 09, 2025 Dr. Ariela Luciano MD Admit Provider Active Star t: January 06, 2025 End: January 09, 2025 Dr. Ariela Luciano MD Referring Provider Active Start: January 06, 2025 End: January 09, 2025 Dr. Ariela Luciano MD Other Provider Active Star t: January 06, 2025 End: January 09, 2025 Dr. Abundio Hurtado MD Attending Provider Active Start: January 06, 2025 End: January 09, 2025 Team Status: Active Member Role Status Dates Dr. Tyra Munoz MD Primary Care Provider Active Start: January 07, 2025 Dr. Broderick Watt MD Attending Provider Active S tart: January 07, 2025 Team Status: Active Member Role Status Dates Dr. Tyra Munoz MD Primary Care Provider Active Start: January 07, 2025 Dr. Bret Victoria DO Emergency Provider Active Start : January 07, 2025 Dr. Ariela Luciano MD Admit Provider Active Star t: January 07, 2025 Dr. Ariela Luciano MD Referring Provider Active Start: January 07, 2025 Dr. Ariela Luciano MD Other Provider Active Star t: January 07, 2025 Dr. Abundio Hurtado MD Attending Provider Active Start: January 07, 2025 Dr. Abundio Hurtado MD Other Provider Active Star t: January 07, 2025 Team Status: Active Member Role Status Dates Dr. Tyra Munoz MD Primary Care Provider Active Start: January 08, 2025 Dr. Bret Victoria DO Emergency Provider Active Start : January 08, 2025 Dr. Ariela Luciano MD Admit Provider Active Star t: January 08, 2025 Dr. Ariela Luciano MD Referring Provider Active Start: January 08, 2025 Dr. Ariela Luciano MD Other Provider Active Star t: January 08, 2025 Dr. Abundio Hurtado MD Attending Provider Active Start: January 08, 2025 Dr. Abundio Hurtado MD Other Provider Active Star t: January 08, 2025 Team Status: Active Member Role Status Dates Dr. Tyra Munoz MD Primary Care Provider Active Start: January 09, 2025 Dr. Bret Victoria DO Emergency Provider Active Start : January 09, 2025 Dr. Ariela Lucinao MD Admit Provider Active Star t: January 09, 2025 Dr. Ariela Luciano MD Referring Provider Active Start: January 09, 2025 Dr. Ariela Luciano MD Other Provider Active Star t: January 09, 2025 Dr. Abundio Hurtado MD Attending Provider Active Start: January 09, 2025 Dr. Abundio Hurtado MD Other Provider Active Star t: January 09, 2025 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 Relationship Specialty Start Date End Date Tyra Mnuoz MD [address] [place] [address] PCP - General 06/28/09 Yuniel Bergman, NEURO OPHTHALMOLOGIST.JUNIOR MECHANICAL ENGINEER [address] [place] [address] [facility] 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 Relationship Specialty Start Date End Date Tyra Munoz MD [address] [place] [address] PCP - General 06/28/09 Yuniel Bergman, NEURO OPHTHALMOLOGIST.JUNIOR MECHANICAL ENGINEER [address] [place] [address] [facility] 08/02/24 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 Relationship Specialty Start Date End Date Tyra Munoz MD [address] [place] [address] PCP - General 06/28/09 Yuniel Bergman NEURO OPHTHALMOLOGIST.JUNIOR MECHANICAL ENGINEER [address] [place] [address] [employer] Generator [facility] 08/02/24 Team Status: Active Member Role Status Dates Dr. Tyra Munoz MD Primary Care Provider Active Start: January 07, 2025 Dr. Bret Victoria DO Emergency Provider Active Start : January 07, 2025 Dr. Ariela Luciano MD Admit Provider Active Star t: January 07, 2025 Dr. Ariela Luciano MD Other Provider Active Star t: January 07, 2025 Dr. Abundio Hurtado MD Attending Provider Active Start: January 07, 2025 Dr. Abundio Hurtado MD Other Provider Active Star t: January 07, 2025 Team Status: Active Member Role Status Dates Dr. Tyra Munoz MD Primary Care Provider Active Start: January 08, 2025 Dr. Bret Victoria DO Emergency Provider Active Start : January 08, 2025 Dr. Ariela Luciano MD Admit Provider Active Star t: January 08, 2025 Dr. Ariela Luciano MD Other Provider Active Star t: January 08, 2025 Dr. Abundio Hurtado MD Attending Provider Active Start: January 08, 2025 Dr. Abundio Hurtado MD Other Provider Active Star t: January 08, 2025 Team Status: Active Member Role Status Dates Dr. Tyra Munoz MD Primary Care Provider Active Start: January 09, 2025 Dr. Bret Victoria DO Emergency Provider Active Start : January 09, 2025 Dr. Ariela Luciano MD Admit Provider Active Star t: January 09, 2025 Dr. Ariela Luciano MD Other Provider Active Star t: January 09, 2025 Dr. Abundio Hurtado MD Attending Provider Active Start: January 09, 2025 Dr. Abundio Hurtado MD Other Provider Active Star t: January 09, 2025 Team Status: Inactive Member Role Status Dates Dr. Tyra Munoz MD Primary Care Provider Active Start: January 27, 2025 End: January 27, 2025 Dr. Tyra Munoz MD Referring Provider Active Start: January 27, 2025 End: January 27, 2025 Shante Ruiz PA, PA Attending Provider Active Start: January 27, 2025 End: January 27, 2025 Team Status: Inactive Member Role Status Dates Dr. Tyra Munoz MD Primary Care Provider Active Start: January 27, 2025 End: January 27, 2025 JANELL Mario Attending Provider Active Start: January 27, 2025 End: January 27, 2025 JANELL Mario Referring Provider Active Start: January 27, 2025 End: January 27, 2025 Team Status: Active Member Role Status Dates Dr. Tyra Munoz MD Primary Care Provider Active Start: February 09, 2025 Dr. Mike Gonzalez DO Referring Provider Active Start: February 09, 2025 Dr. Mike Gonzalez DO Emergency Provider Active Start: February 09, 2025 Dr. Ariela Luciano MD Admit Provider Active Star t: February 09, 2025 Dr. 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 Tyra Munoz MD Primary Care Provider Active Team Status: Inactive Member Role/Relationship Status Dates Dr. Tyra Munoz MD Primary Care Provider Active Start: December 07, 2024 End: December 07, 2024 Dr. Colin Lee MD Attending Provider Active Start: December 07, 2024 End: December 07, 2024 Dr. Colin Lee MD Emergency Provider Active Start: December 07, 2024 End: December 07, 2024 Team Status: Inactive Member Role/Relationship Status Dates Dr. Tyra Munoz MD Primary Care Provider Active Start: January 06, 2025 End: January 09, 2025 Dr. Bret Victoria DO Emergency Provider Active Start : January 06, 2025 End: January 09, 2025 Dr. Ariela Luciano MD Admit Provider Active Star t: January 06, 2025 End: January 09, 2025 Dr. Ariela Luciano MD Referring Provider Active Start: January 06, 2025 End: January 09, 2025 Dr. Ariela Luciano MD Other Provider Active Star t: January 06, 2025 End: January 09, 2025 Dr. Abundio Hurtado MD Attending Provider Active Start: January 06, 2025 End: January 09, 2025 Team Status: Active Member Role/Relationship Status Dates Dr. Tyra Munoz MD Primary Care Provider Active Start: January 07, 2025 Dr. Broderick Watt MD Attending Provider Active S tart: January 07, 2025 Team Status: Active Member Role/Relationship Status Dates Dr. Tyra Munoz MD Primary Care Provider Active Start: January 07, 2025 Dr. Bret Victoria DO Emergency Provider Active Start : January 07, 2025 Dr. Ariela Luciano MD Admit Provider Active Star t: January 07, 2025 Dr. Ariela Luciano MD Other Provider Active Star t: January 07, 2025 Dr. Abundio Hurtado MD Attending Provider Active Start: January 07, 2025 Dr. Abundio Hurtado MD Other Provider Active Star t: January 07, 2025 Team Status: Active Member Role/Relationship Status Dates Dr. Tyra Munoz MD Primary Care Provider Active Start: January 08, 2025 Dr. Bret Victoria DO Emergency Provider Active Start : January 08, 2025 Dr. Ariela Luciano MD Admit Provider Active Star t: January 08, 2025 Dr. Ariela Luciano MD Other Provider Active Star t: January 08, 2025 Dr. Abundio Hurtado MD Attending Provider Active Start: January 08, 2025 Dr. Abundio Hurtado MD Other Provider Active Star t: January 08, 2025 Team Status: Active Member Role/Relationship Status Dates Dr. Tyra Munoz MD Primary Care Provider Active Start: January 09, 2025 Dr. Bret Victoria DO Emergency Provider Active Start : January 09, 2025 Dr. Ariela Luciano MD Admit Provider Active Star t: January 09, 2025 Dr. Ariela Luciano MD Other Provider Active Star t: January 09, 2025 Dr. Abundio Hurtado MD Attending Provider Active Start: January 09, 2025 Dr. Abundio Hurtado MD Other Provider Active Star t: January 09, 2025 Team Status: Inactive Member Role/Relationship Status Dates Dr. Tyra Munoz MD Primary Care Provider Active Start: January 27, 2025 End: January 27, 2025 Dr. Tyra Munoz MD Referring Provider Active Start: January 27, 2025 End: January 27, 2025 Shante MACIEL, PA Attending Provider Active Start: January 27, 2025 End: January 27, 2025 Team Status: Inactive Member Role/Relationship Status Dates Dr. Tyra Munoz MD Primary Care Provider Active Start: January 27, 2025 End: January 27, 2025 Shante MACIEL, PA Attending Provider Active Start: January 27, 2025 End: January 27, 2025 Shante MACIEL, PA Referring Provider Active Start: January 27, 2025 End: January 27, 2025 Team Status: Inactive Member Role/Relationship Status Dates Dr. Tyra Munoz MD Primary Care Provider Active Start: February 09, 2025 End: February 13, 2025 Dr. Mike Gonzalez DO Referring Provider Active Start: February 09, 2025 End: February 13, 2025 Dr. Mike Gonzalez DO Emergency Provider Active Start: February 09, 2025 End: February 13, 2025 Dr. Ariela Luciano MD Admit Provider Active Star t: February 09, 2025 End: February 13, 2025 Dr. Ariela Luciano MD Other Provider Active Star t: February 09, 2025 End: February 13, 2025 Dr. Tyra Ridley DO Attending Provider Active Start: February 09, 2025 End: February 13, 2025 Team Status: Active Member Role/Relationship Status Dates Dr. Tyra Munoz MD Primary Care Provider Active Start: February 10, 2025 Dr. Mike Gonzalez DO Referring Provider Active Start: February 10, 2025 Dr. Mike Gonzalez DO Emergency Provider Active Start: February 10, 2025 Dr. Ariela Luciano MD Admit Provider Active Star t: February 10, 2025 Dr. Ariela Luciano MD Other Provider Active Star t: February 10, 2025 Dr. Tyra Ridley DO Attending Provider Active Start: February 10, 2025 Dr. Tyra Ridley DO Other Provider Active S tart: February 10, 2025 Team Status: Active Member Role/Relationship Status Dates Dr. Tyra Munoz MD Primary Care Provider Active Start: February 12, 2025 Dr. Mike Gonzalez DO Referring Provider Active Start: February 12, 2025 Dr. Mike Gonzalez DO Emergency Provider Active Start: February 12, 2025 Dr. Ariela Luciano MD Admit Provider Active Star t: February 12, 2025 Dr. Ariela Luciano MD Other Provider Active Star t: February 12, 2025 Dr. Tyra Ridley DO Attending Provider Active Start: February 12, 2025 Dr. Tyra Ridley DO Other Provider Active S tart: February 12, 2025 Team Status: Active Member Role/Relationship Status Dates Dr. Tyra Munoz MD Primary Care Provider Active Start: February 10, 2025 Dr. Mike Gonzalez DO Emergency Provider Active Start: February 10, 2025 Dr. Ariela Luciano MD Admit Provider Active Star t: February 10, 2025 Dr. Ariela Luciano MD Other Provider Active Star t: February 10, 2025 Dr. Tyra Ridley DO Attending Provider Active Start: February 10, 2025 Dr. Tyra Ridley DO Other Provider Active S tart: February 10, 2025 Team Status: Active Member Role/Relationship Status Dates Dr. Tyra Munoz MD Primary Care Provider Active Start: February 13, 2025 Dr. Mike Gonzalez DO Referring Provider Active Start: February 13, 2025 Dr. Mike Gonzalez DO Emergency Provider Active Start: February 13, 2025 Dr. Ariela Luciano MD Admit Provider Active Star t: February 13, 2025 Dr. Ariela Luciano MD Other Provider Active Star t: February 13, 2025 Dr. Tyra Ridley DO Attending Provider Active Start: February 13, 2025 Dr. Tyra Ridley DO Other Provider Active S tart: February 13, 2025 Team Status: Inactive Member Role/Relationship Status Dates Dr. Tyra Munoz MD Primary Care Provider Active Start: February 15, 2025 End: February 15, 2025 Dr. Tyra Munoz MD Referring Provider Active Start: February 15, 2025 End: February 15, 2025 Dr. Isidro Wong MD Attending Provider Active Start: February 15, 2025 End: February 15, 2025 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 Relationship Specialty Start Date End Date Tyra Munoz MD [address] [place], [place] [address] PCP - General 06/28/09 Yuniel Bergman APRN.JUNIOR MECHANICAL ENGINEER [address] [place], [place] [address] Gas Generator Operator [facility] 08/02/24 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 Relationship Specialty Start Date End Date Tyra Munoz MD [address] [place], [place] [id number] PCP - General 06/28/09 Yuniel Bergman APRN.JUNIOR MECHANICAL ENGINEER [address] [place], [place] [id number] Gas Generator Operator [facility] 08/02/24 Team Status: Active Member Role/Relationship Status Dates Dr. Tyra Munoz MD Primary Care Provider Active Start: February 12, 2025 Dr. Mike Gonzalez DO Emergency Provider Active Start: February 12, 2025 Dr. Ariela Luciano MD Admit Provider Active Star t: February 12, 2025 Dr. Ariela Luciano MD Other Provider Active Star t: February 12, 2025 Dr. Tyra Ridley DO Attending Provider Active Start: February 12, 2025 Dr. Tyra Ridley DO Other Provider Active S tart: February 12, 2025 Team Status: Active Member Role/Relationship Status Dates Dr. Tyra Munoz MD Primary Care Provider Active Start: February 13, 2025 Dr. Mike Gonzalez DO Emergency Provider Active Start: February 13, 2025 Dr. Ariela Luciano MD Admit Provider Active Star t: February 13, 2025 Dr. Ariela uLciano MD Other Provider Active Star t: February 13, 2025 Dr. Tyra Ridley DO Attending Provider Active Start: February 13, 2025 Dr. Tyra Ridley DO Other Provider Active S tart: February 13, 2025 Team Status: Active Member Role/Relationship Status Dates Dr. Tyra Munoz MD Primary Care Provider Active Start: February 27, 2025 Blair Orourke MD Referring Provider Active Star t: February 27, 2025 Blair Orourke MD Emergency Provider Active Star t: February 27, 2025 Dr. León Mckeon MD Admit Provider Active Sta rt: February 27, 2025 Dr. León Mckeon MD Attending Provider Active Start: February 27, 2025 FOR RECORDS PERTAINING TO PATIENTS WHO ARE OR HAVE BEEN ENROLLED IN A CHEMICAL DEPENDENCY/SUBSTANCEABUSE PROGRAM, SOME INFORMATION MAY BE OMITTED. This clinical summary was aggregated from multiple sources. Caution should be exercised in using it in the provision of clinical care. This summary normalizes information from multiple sources, and as a consequence, information in this document may materially change the coding, format and clinical context of patient data. In addition, data may be omitted in some cases. CLINICAL DECISIONS SHOULD BE BASED ON THE PRIMARY CLINICAL RECORDS. [facility] [employer] provides no warranty or guarantee of the accuracy or completeness of information in this document.
[2025-02-28] VITALS (14 sets, daily range): BP systolic 80–136; BP diastolic 51–110; PULSE 84–98; RESP 17–19; TEMP 35.6–36.4; O2SAT 92–100; BMI 23.0
[2025-02-28 00:36] LABS: Reflex Lactate? Y
[2025-02-28] MEDS: Lactobacillis Acidophilus 1 CAP PO ×3 (05:49→22:09)
--- NOTE | 2025-02-28 07:12 | PCM.PN.HOSP ---
Reason for Visit Chief Complaint: Diarrhea for 2 weeks, very weak, mild short of breath on exertion. Subjective Subjective Patient is an 89-year-old gentleman admitted with progressive generalized weakness as well as diarrhea 2 weeks duration. Patient's stool assay came back positive for C. difficile admitted to regular nursing floor for further management Objective Data Objective Data Vital Signs: Vital Signs Temp Pulse Resp BP Pulse Ox O2 Del Method O2 Flow Rate 97.4 F L 88 18 81/61 L 94 Nasal Cannula 4 02/28/25 07:00 02/28/25 07:00 02/28/25 07:00 02/28/25 07:00 02/28/25 07:00 02/28/25 07:00 02/28/25 07:00 Oxygen Flow Rate (L/min) 4 Oxygen Delivery Method Nasal Cannula Weight: 77 kg Body Mass Index (BMI) 23.0 Intake & Output: Intake and Output for Last 24 Hours 02/26/25 02/27/25 02/28/25 23:59 23:59 23:59 Intake Total 2500 / 2500 0 / 0 Output Total 75 / 75 100 / 100 Balance 2425 / 2425 -100 / -100 Lab / Micro Data 02/28/25 07:00 02/28/25 07:00 Labs: Laboratory Results - last 24 hr 02/27/25 15:14: Sodium 136, Potassium 3.7, Chloride 103, Carbon Dioxide 19.7 L, Anion Gap 13, BUN 33 H, Creatinine 1.10, Estim Creat Clear Calc 50.95, Est GFR (MDRD) Non-Af 65, BUN/Creatinine Ratio 30.0 H, Glucose 98, Calcium 8.2, Magnesium 1.6, Total Bilirubin 2.04 H, AST 27, ALT 22, Alkaline Phosphatase 243 H, [place] [address] H, Total Protein 5.5 L, Albumin 2.4 L, Globulin 3.2, Albumin/Globulin Ratio 0.7 L 02/27/25 16:06: Urine Color Yellow, Urine Clarity Clear, Urine pH 6.0, Ur Specific [place] 1.015, Urine Protein 15 H, Urine Glucose (UA) Normal, Urine Ketones Negative, Urine Occult Blood 10 H, Urine Nitrite Negative, Urine Bilirubin Negative, Urine Urobilinogen Normal, Ur Leukocyte Esterase 100 H, Urine RBC 0-5 SEEN, Urine WBC 5-10 SEEN, Ur Squamous Epith Cells 0-5 SEEN, Urine Bacteria 1+, Hyaline Casts 0-5 SEEN, Urine Mucus 1+ 02/27/25 16:10: WBC 11.8 H, RBC 3.57 L, Hgb 13.2, Hct 39.3 L, MCV 110.1 H, MCH 37.0 H, MCHC 33.6, RDW Std Deviation 66.2 H, RDW Coeff of [place] 16.1 H, Plt Count 160, MPV 11.2, Immature Gran % (Auto) 0.600, Neut % (Auto) 76.6 H, Lymph % (Auto) 6.5 L, [place] % (Auto) 15.2 H, Eos % (Auto) 0.2, Baso % (Auto) 0.9, Absolute Neuts (auto) 9.1 H, Absolute Lymphs (auto) 0.77 L, Nucleated RBC % 0, Differential Comment SCANNED, Platelet Estimate ADEQUATE, Polychromasia 1+, Anisocytosis 1+ 02/27/25 20:19: Lactic Acid 3.4 H* 02/28/25 01:29: Lactic Acid 1.9 Micro: Microbiology 02/27/25 16:04 Stool Stool Lactoferrin - Final 02/27/25 16:04 Stool Enteric Bacteriology - Final Yersinia enterocolitica 02/27/25 16:04 Stool C. difficile GDH Antigen & Toxins - Final Toxigenic C. difficile 02/27/25 16:04 Stool Clostridioides difficile (PCR) - Final Radiography Diagnostic Testing: Radiology Impression Abdomen/Pelvis CT 02/27/25 16:35 IMPRESSION: Diffusely thickened and inflamed colon likely reflective of pancolitis. No bowel obstruction. Mildly thickened urinary bladder wall which may reflect cystitis vs nondistention; consider correlation with urinalysis. Moderate pleural effusion within the right and mild pleural effusion within the left. Reading Location: [facility] Chest X-Ray 02/27/25 16:45 IMPRESSION: Shallow inspiration with associated bibasilar atelectasis. Probable mild cardiomegaly, vascular congestion and interstitial edema. No large pleural effusions. Reading Location: [facility] Physical Exam Narrative GENERAL: hard of hearing HEENT: Atraumatic; normocephalic EYES; Anicteric, Normal Conjunctiva NECK; supple, normal thyroid, RESPIRATORY: Diminished to auscultation CARDIOVASCULAR: Irregularly irregular, systolic murmur GI: soft, normoactive bowel sounds, : No Renal angle tenderness; EXTREMITIES: 2+ bipedal edema no clubbing, MUSCULOSKELETAL: no muscle wasting NEURO: Awake; no lateralizing signs. SKIN: No Rash PSYCH; Flat affect Assessment & Plan Assessment/Plan (1) C. difficile colitis: (2) Generalized weakness: (3) CKD (chronic kidney disease), stage III: QUALIFIERS: Chronic kidney disease stage 3 subtype: stage 3b (GFR 30-44) Qualified Code(s): N18.32 - Chronic kidney disease, stage 3b PLAN: Plan Patient is an 89-year-old gentleman admitted with progressive generalized weakness as well as diarrhea 2 weeks duration. Patient's stool assay came back positive for C. difficile admitted to regular nursing floor for further management 1. Acute C. difficile colitis ? Patient has been admitted to a monitored bed. CT on admission did show Diffusely thickened and inflamed colon likely reflective of pancolitis. No bowel obstruction. Patient started on p.o. vancomycin 2.Sepsis (present on admission) ? Second [place] to acute C. difficile colitis. Patient did receive IV fluid resuscitation with treatment of the underlying etiology. Patient did not receive 30cc/kg given his underlying history of congestive heart failure. Patient lactic acid levels did improve blood pressure still remains low patient started on midodrine 3. 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 Patient remains compensated at this point 4. Chronic kidney disease stage IIIa ? Monitoring kidney function with daily BMPs 5. Gout ? Patient is on allopurinol did continue 6. Dyslipidemia ? Patient is on both pravastatin as well as niacin did continue 7. Severe protein calorie malnutrition - BMI 22.2 kg/m? but patient has severe malnutrition. Patient has decreased muscle mass of extremities, bilateral chronic shoulder weakness, intercostal and costovertebral muscles, craniofacial muscle and loss of subcutaneous fat. Consult was placed to nutrition 8. Paroxysmal Atrial Fibrillation -Rate controlled with carvedilol. Patient was on systemic anticoagulation with apixaban did continue 9. Coronary artery disease ? With previous PCI in 2010 patient remains on guideline directed medical therapy 10. Thrombocytopenia ? Appears to be chronic patient platelet count has been ranging from 100-70 since 2002. Daily monitoring with CBC with differential ordered 11. DVT prophylaxis - Not indicated, patient on full dose anticoagulation Time spent in the patient's overall evaluation,decision-making process, review of diagnostic data, adjustment of management, discussion with other providers, nursing nursing and ancillary staff involved in patient's care documentation, 50 Minutes Charges/Coding Visit Charges Inpatient E&M: 66602 [facility] L3
[2025-02-28 07:18] LABS: Hematocrit 37.7 % (40-54); Hemoglobin 12.7 g/dL (13.0-16.5); Immature Granulocytes Count 0.150 X10^3/uL (0.0-0.0); Mean Corp Hgb Conc 33.7 g/dL (32-36); Mean Corpuscular Volume 109.0 fL (80-94); Mean Platelet Vol. 10.8 fl (6.2-12.0); NRBC Flagged by Analyzer 0 % (0-5); POSITIVE DIFFERENTIAL YES; POSITIVE MORPHOLOGY YES; Platelet Count 150 K/mm3 (150-450); RBC Distribution Width CV 16.0 % (11.6-14.6); RBC Distribution Width SD 64.8 fl (35.1-43.9); Red Blood Count 3.46 M/mm3 (4.6-6.2); White Blood Count 15.8 K/mm3 (4.4-11.0)
[2025-02-28 07:25] LABS: Differential Indicated SCAN CRITERIA MET
[2025-02-28 07:37] LABS: AST(SGOT) 20 U/L (<=37); Alanine Aminotransfer ALT/SGPT 18 U/L (<=46); Albumin, Serum 2.2 g/dL (3.4-4.8); Alkaline Phosphatase 197 U/L (40-129); Anion Gap 10 (5-15); BUN 36 mg/dL (4-19); BUN/Creat Ratio 32.1 RATIO (10-20); Calcium,Total 8.2 mg/dL (7.6-11.0); Carbon Dioxide 23.6 mmol/L (21.0-32.0); Chloride 102 mmol/L (98-108); Estimated Creatinine Clearance 50.10 ml/min (50-250); Globulin 2.6 g/dL (2.2-4.2); Glucose 82 mg/dL (70-99); Potassium 3.3 mmol/L (3.3-5.1)
[2025-02-28] MEDS: Smz/Tmp Ds Tablet 1 TABLET PO ×2 (08:33→17:47)
[2025-02-28] MEDS: Vancomycin 125 MG/5 ML Susp PO.SYRINGE PO ×4 (08:34→22:09)
[2025-02-28] MEDS: APIXABAN 2.5 MG TABLET (WCH) PO ×2 (08:34→22:09)
[2025-02-28] MEDS: BRINZOLAMIDE/BRIMONID TART 1 DROP DROPS.SUSP 1 DRP EACH EYE ×2 (08:35→22:10)
--- NOTE | 2025-02-28 08:48 | PCM.CONS.C ---
Assessment & Plan Assessment/Plan (1) CHF (congestive heart failure): QUALIFIERS: Heart failure type: systolic Heart failure chronicity: acute on chronic Qualified Code(s): I50.23 - Acute on chronic systolic (congestive) heart failure PLAN: Patient carries a history of heart failure reduced ejection fraction EF is 40% on his last echocardiogram December 2024. He had mild valvular heart disease with 1+ aortic insufficiency 2+ mitral regurgitation. Patient had been stable in his home environment with a dry weight of 166 pounds. However he is profoundly malnourished albumin is in the 2.2?2.4 range he had been tolerating guideline directed medical therapy with blood pressure and heart rate control. The patient developed diarrhea 2 weeks ago and has been anorexic for the last 2 to 4 weeks. He came in hypotensive and profoundly weak unable to get out of his bed or chair for the last 2 days. Blood pressures been 80/60 up to 130/70. The patient did respond to fluid rehydration he has had received 2 L IV saline. He continues to be hypotensive intermittently. His guideline directed medical therapy is on hold. The patient should be gently rehydrated and treated his colitis. If blood pressure recovers would reinstitute guideline directed medical therapy at low-dose and titrate to tolerated doses. The patient has significant malnutrition and debility. This has been ongoing and progressive over the last several months. He is currently a DNR DO NOT INTUBATE. Consideration can be given for palliative/hospice care. (2) Diarrhea: QUALIFIERS: Diarrhea type: infectious Qualified Code(s): A09 - Infectious gastroenteritis and colitis, unspecified PLAN: Patient has positive C. difficile. Treatment has been instituted with p.o. vancomycin. Recommend continued rehydration as tolerated. PLAN: Plan 1. Continue supportive care and withholding guideline directed medical therapy due to hemodynamics. 2. Should the patient recover and blood pressure and heart rate tolerated reinstitution of his guideline directed medical therapy for heart failure could be reinstituted. 3. At this point in time we will follow peripherally if further assistance is needed please call. HPI Consult Data Date of Consult: 02/28/25 HPI Narrative Reason for Consultation: History of CHF and hypotension HPI Narrative: VALDO DUTTA, is a 89 M who presents with a 2-week history of diarrhea. The patient has been too weak to get out of bed for the last 48 hours and was brought to the emergency department on 02/27/2025. He was admitted to the hospital with hypotension blood pressure in the 80/60 range. His lactic acid was 3.4 GFR 65. His BNP was elevated at 15,000. However his baseline runs 7-9000. The patient also has a history of severe malnutrition albumin of 2.4 and total protein of 5.5 and has a history of heart failure with reduced ejection fraction of 40% on echocardiogram December 2024. He had 1+ aortic insufficiency and 2+ mitral regurgitation with global LV dysfunction. Patient was recently seen in our office February 15, 2025. This was following an admission on February 09 where he was admitted for 3 days with a UTI and dehydration. His Lasix had been decreased down to 40 mg daily his weight remains stable and his home environment will reduce Lasix dose at 166 pounds. The patient has been on home oxygen at 2 L nasal cannula when he arrived the emergency department he was placed on 4 L with O2 saturation now 94%. The patient continues to have intermittent hypotension midodrine 10 mg 3 times daily was started. He also received a total of 2 L IV fluids. And his stool came back positive for C. difficile. The patient has a history of persistent atrial fibrillation running in the 70 to 90 bpm range with frequent PVCs. He also has a chronic left bundle branch block. [facility] Medical History (Updated 02/28/25 @ 08:[address] Isidro Wong MD) UTI (urinary tract infection) Kidney disease Non-smoker On home oxygen therapy Coronary artery disease Myocardial infarct DVT (deep venous thrombosis) Gout Atherosclerosis of coronary artery of [place] heart without angina pectoris Hypertension Hyperlipidemia Old inferior wall myocardial infarction Home Medications ?Medication ?Instructions ?Recorded ?Last Taken ?Type allopurinol 300 mg tablet 300 mg PO DAILY 09/13/17 02/09/25 History amoxicillin 500 mg tablet 2,000 mg PO DAILY PRN DENTIST 09/13/17 Unknown History bimatoprost 0.01 % eye drops 1 drp ophthalmic (eye) QHS 09/13/17 12/07/24 History (Clau) carvedilol 3.125 mg tablet (Coreg) 3.125 mg PO BID 09/13/17 02/09/25 History [id number]-[id number]-[id number] 300 mcg-K 60 1 tab PO DAILY 09/13/17 02/09/25 History mcg-lycop 600 mcg-lutein 300 mcg tablet (Centrum Silver Men) nitroglycerin 0.4 mg sublingual 0.4 mg sublingual Q5-15M PRN chest 09/13/17 Unknown History tablet pain brinzolamide 1 %-brimonidine 0.2 % 1 drp ophthalmic (eye) BID 02/10/19 Unknown History eye drops,suspension (Simbrinza) apixaban 2.5 mg tablet (Eliquis) 2.5 mg PO BID #60 tabs 12/07/24 02/09/25 Rx lutein 10 mg tablet 10 mg PO DAILY 12/07/24 02/09/25 History furosemide 40 mg tablet (Lasix) 40 mg PO DAILY #1 TAB 02/13/25 02/27/25 Rx Lactobacillus acidophilus 10 10,000 mmu cells PO DAILY 02/27/25 Unknown History billion cell capsule (Probacap) potassium chloride 20 mEq 20 meq PO BID 02/27/25 Unknown History tablet,extended release(part/cryst) pravastatin 20 mg tablet 20 mg PO DAILY 02/27/25 Unknown History Allergy/AdvReac Type Severity Reaction Status Date / Time SHARON Inhibitors AdvReac Hypotensive Verified 02/15/25 15:15 Family History Mother , AGe 71 Congestive heart failure Sister , Age 66 CAD (coronary artery disease) Breast cancer S/P CABG (coronary artery bypass graft) Surgical History History of coronary artery stent placement H/O bilateral inguinal hernia repair H/O bilateral hip replacements H/O right coronary artery stent placement (06/13/10) Social History household members: spouse housing: house current occupational status: retired Smoking Status: Never smoker ROS Constitutional Constitutional: Reports as per HPI Eyes Eyes: Reports systems reviewed and no addt'l complaints, except as documented ENT HEENT: Reports systems reviewed and no addt'l complaints, except as documented Cardiovascular Cardiovascular: Reports as per HPI Respiratory/Chest Respiratory/Chest: Reports as per HPI Gastrointestinal Gastrointestinal: Reports as per HPI Genitourinary Genitourinary: Reports as per HPI Musculoskeletal Musculoskeletal: Reports systems reviewed and no addt'l complaints, except as documented Integumentary Integumentary: Reports systems reviewed and no addt'l complaints, except as documented Neurologic Neurologic: Reports as per HPI Psychiatric Psychiatric: Reports systems reviewed and no addt'l complaints, except as documented Endocrine Endocrinology: Reports as per HPI Physical Exam Const Constitutional Narrative: Lethargic but arousable and appears to be oriented x 3. HEENT HEENT Narrative: Temporal wasting Eyes EOMs intact bilaterally Neck no JVD Chest Chest Narrative: Significant muscular wasting Resp normal respiratory effort Auscultation: diminished lung sounds diffuse Cardio Cardio Narrative: Difficult to auscultate no obvious murmurs gallops or rubs. Rate: regular rate Rhythm: abnormal rhythm irregularly irregular Heart Sounds: S1 normal and S2 normal; Negative for click, gallop or murmur Extremity no pedal edema Neuro Neuro Narrative: Lethargic but easily arousable and follows commands carries on relatively normal conversation Psych cooperative Risk Stratification Risk Stratification Applicable: No Charges/Coding Visit Charges Inpatient E&M: 58963 Init Hosp L3 Objective Data Vital Signs: Vital Signs Temp Pulse Resp BP Pulse Ox O2 Del Method O2 Flow Rate 97.4 F L 89 18 80/58 L 96 Nasal Cannula 4 02/28/25 07:00 02/28/25 08:28 02/28/25 07:00 02/28/25 08:28 02/28/25 08:28 02/28/25 08:28 02/28/25 08:28 Oxygen Flow Rate (L/min) 4 Oxygen Delivery Method Nasal Cannula Weight: 169 lb 12.095 oz Body Mass Index (BMI) 23.0 Intake & Output: Intake and Output for Last 24 Hours 02/26/25 02/27/25 02/28/25 23:59 23:59 23:59 Intake Total 2500 / 2500 0 / 0 Output Total 75 / 75 100 / 100 Balance 2425 / 2425 -100 / -100 Lab / Micro Data Attestation: I reviewed the patient's lab results. 02/28/25 07:00 02/28/25 07:00 Labs: Laboratory Results - last 24 hr 02/27/25 15:14: Sodium 136, Potassium 3.7, Chloride 103, Carbon Dioxide 19.7 L, Anion Gap 13, BUN 33 H, Creatinine 1.10, Estim Creat Clear Calc 50.95, Est GFR (MDRD) Non-Af 65, BUN/Creatinine Ratio 30.0 H, Glucose 98, Calcium 8.2, Magnesium 1.6, Total Bilirubin 2.04 H, AST 27, ALT 22, Alkaline Phosphatase 243 H, [place] [address] H, Total Protein 5.5 L, Albumin 2.4 L, Globulin 3.2, Albumin/Globulin Ratio 0.7 L 02/27/25 16:06: Urine Color Yellow, Urine Clarity Clear, Urine pH 6.0, Ur Specific [place] 1.015, Urine Protein 15 H, Urine Glucose (UA) Normal, Urine Ketones Negative, Urine Occult Blood 10 H, Urine Nitrite Negative, Urine Bilirubin Negative, Urine Urobilinogen Normal, Ur Leukocyte Esterase 100 H, Urine RBC 0-5 SEEN, Urine WBC 5-10 SEEN, Ur Squamous Epith Cells 0-5 SEEN, Urine Bacteria 1+, Hyaline Casts 0-5 SEEN, Urine Mucus 1+ 02/27/25 16:10: WBC 11.8 H, RBC 3.57 L, Hgb 13.2, Hct 39.3 L, MCV 110.1 H, MCH 37.0 H, MCHC 33.6, RDW Std Deviation 66.2 H, RDW Coeff of Yanet 16.1 H, Plt Count 160, MPV 11.2, Immature Gran % (Auto) 0.600, Neut % (Auto) 76.6 H, Lymph % (Auto) 6.5 L, [place] % (Auto) 15.2 H, Eos % (Auto) 0.2, Baso % (Auto) 0.9, Absolute Neuts (auto) 9.1 H, Absolute Lymphs (auto) 0.77 L, Nucleated RBC % 0, Differential Comment SCANNED, Platelet Estimate ADEQUATE, Polychromasia 1+, Anisocytosis 1+ 02/27/25 20:19: Lactic Acid 3.4 H* 02/28/25 01:29: Lactic Acid 1.9 02/28/25 07:00: WBC 15.8 H, RBC 3.46 L, Hgb 12.7 L, Hct 37.7 L, MCV 109.0 H, MCH 36.7 H, MCHC 33.7, RDW Std Deviation 64.8 H, RDW Coeff of Yanet 16.0 H, Plt Count 150, MPV 10.8, Immature Gran % (Auto) 0.900, Neut % (Auto) 82.0 H, Lymph % (Auto) 5.0 L, [place] % (Auto) 11.0 H, Eos % (Auto) 0.3, Baso % (Auto) 0.8, Absolute Neuts (auto) 13.0 H, Absolute Lymphs (auto) 0.79 L, Nucleated RBC % 0, Plt Morphology Comment A, Sodium 136, Potassium 3.3, Chloride 102, Carbon Dioxide 23.6, Anion Gap 10, BUN 36 H, Creatinine 1.11, Estim Creat Clear Calc 50.10, Est GFR (MDRD) Non-Af 64, BUN/Creatinine Ratio 32.1 H, Glucose 82, Calcium 8.2, Phosphorus 4.2, Total Bilirubin 2.00 H, AST 20, ALT 18, Alkaline Phosphatase 197 H, Total Protein 4.8 L, Albumin 2.2 L, Globulin 2.6, Albumin/Globulin Ratio 0.9, TSH 1.210 Micro: Microbiology 02/27/25 16:04 Stool Stool Lactoferrin - Final 02/27/25 16:04 Stool Enteric Bacteriology - Final Yersinia enterocolitica 02/27/25 16:04 Stool C. difficile GDH Antigen & Toxins - Final Toxigenic C. difficile 02/27/25 16:04 Stool Clostridioides difficile (PCR) - Final Rhythm Strip Rhythm Strip: A-fib Rate: 90 Ectopy: PVC(s) Cardiology Labs/Tests 02/27/25 15:14: Sodium 136, Potassium 3.7, Chloride 103, Carbon Dioxide 19.7 L, Anion Gap 13, BUN 33 H, Creatinine 1.10, Est GFR (MDRD) Non-Af 65, BUN/Creatinine Ratio 30.0 H, Glucose 98, Calcium 8.2, Magnesium 1.6, Total Bilirubin 2.04 H 02/27/25 16:06: Urine Color Yellow, Urine Clarity Clear, Urine pH 6.0, Ur Specific [place] 1.015, Urine Protein 15 H, Urine Glucose (UA) Normal, Urine Ketones Negative, Urine Occult Blood 10 H, Urine Nitrite Negative, Urine Bilirubin Negative, Urine Urobilinogen Normal, Ur Leukocyte Esterase 100 H, Urine RBC 0-5 SEEN, Urine WBC 5-10 SEEN 02/27/25 16:10: WBC 11.8 H, RBC 3.57 L, Hgb 13.2, Hct 39.3 L, MCV 110.1 H, MCH 37.0 H, MCHC 33.6, Plt Count 160, MPV 11.2, Immature Gran % (Auto) 0.600, Neut % (Auto) 76.6 H, Lymph % (Auto) 6.5 L, Dol[place] % (Auto) 15.2 H, Eos % (Auto) 0.2, Baso % (Auto) 0.9, Absolute Neuts (auto) 9.1 H, Nucleated RBC % 0 02/27/25 20:19: Lactic Acid 3.4 H* 02/28/25 01:29: Lactic Acid 1.9 02/28/25 07:00: WBC 15.8 H, RBC 3.46 L, Hgb 12.7 L, Hct 37.7 L, MCV 109.0 H, MCH 36.7 H, MCHC 33.7, Plt Count 150, MPV 10.8, Immature Gran % (Auto) 0.900, Neut % (Auto) 82.0 H, Lymph % (Auto) 5.0 L, [place] % (Auto) 11.0 H, Eos % (Auto) 0.3, Baso % (Auto) 0.8, Absolute Neuts (auto) 13.0 H, Nucleated RBC % 0, Sodium 136, Potassium 3.3, Chloride 102, Carbon Dioxide 23.6, Anion Gap 10, BUN 36 H, Creatinine 1.11, Est GFR (MDRD) Non-Af 64, BUN/Creatinine Ratio 32.1 H, Glucose 82, Calcium 8.2, Phosphorus 4.2, Total Bilirubin 2.00 H Rhythm: EKG: ECHO: Stress Test: Cardiac Cath: PCI: CT Surgery: Holter monitor: EPS: PPM: CXR: Chest CT Scan: Radiography Diagnostic Testing: Radiology Impression Abdomen/Pelvis CT 02/27/25 16:35 IMPRESSION: Diffusely thickened and inflamed colon likely reflective of pancolitis. No bowel obstruction. Mildly thickened urinary bladder wall which may reflect cystitis vs nondistention; consider correlation with urinalysis. Moderate pleural effusion within the right and mild pleural effusion within the left. Reading Location: [facility] Chest X-Ray 02/27/25 16:45 IMPRESSION: Shallow inspiration with associated bibasilar atelectasis. Probable mild cardiomegaly, vascular congestion and interstitial edema. No large pleural effusions. Reading Location: [id number] EKG Initial EKG: Attestation: I personally reviewed and interpreted this EKG as follows: (Atrial fibrillation with controlled ventricular response at 92 bpm occasional PVCs and left bundle branch block known to be chronic)
--- NOTE | 2025-02-28 09:31 | CASEMGMT ---
Social Work There is an order in for hospice. JEAN PAUL spoke w/hospitalist today who is also in agreement with the hospice referral. SW called pt's , who is the POA. Pt's daughter Susan, who is the alternate POA, answered. Daughter initially spoke w/SW about her frustration that and aunt and uncle are coming to visit when they do not want them to come, they are trying to clean up the house from pt having C diff. SW encouraged her to have them come see pt here in the hospital. She states they want as few people as possible to come see pt as they want to reduce the risk of respiratory illness. SW offered support to daughter. SW then spoke w/her about the hospice referral. Daughter Susan initially spoke w/pt about transportation, she expressed frustration in trying to get ambulance transport home from the hospital, and not knowing ahead of time if it would be covered. She had called a couple of transportation companies herself and was told she could not set up the transport home. JEAN PAUL explained that we usually do this, and ask them to submit it to insurance to see if it would be covered. Susan stated to JEAN PAUL that SW should know if it's covered if this is a service we set up. She states that we should start working on this now to see if it would be approved by insurance. SW attempted to explain to daughter that the transportation company, and that we use [employer], would be the ones to look into this. Daughter states to SW that the hospital should know, not only for them but for others if it's covered. SW attempted to educate daughter that there are so many insurance companies, there would be no way for the hospital to know who would be covered and who would not be covered. JEAN PAUL attempted multiple times to move on to the topic of hospice, however daughter continued to speak about transportation. She states that if we don't know ahead of time, they will find an alternate way to get pt home(family had told ED SW that they would take pt home in a livestock truck). She does not think it's okay to send the pt home in an ambulance and not know the cost ahead of time. After much discussion, JEAN PAUL was able to move the conversation forward to hospice. Daughter initially agreeable to hospice but wanted to know if they can meet outside, as they are concerned about respiratory illness. JEAN PAUL explained can make the referral and she can let them know when they call her for a meeting that they would like to meet outside. Daughter then asked if she can call herself. SW explained she can, but they will want clinical information from the hospital. JEAN PAUL then educated daughter that if they were to agree to hospice, hospice can provide transport home and then it would be covered. Daughter asked why SW did not mention this earlier, SW gently reminded her that SW did try to move forward in the conversation but that we got a little off on a tangent. After much more discussion, daughter is not agreeable to SW making a referral, she wants to call hospice herself. She asked if SW can text her the number for hospice. SW explained cannot text from hospital phone. She asked SW to text from SW's own phone, SW explained does not use personal cell phone for work, offered to email the number to her. Daughter expressed frustration w/JEAN PAUL for not being willing to text her from personal cell phone. SW explained will email the numbers, got daughter's email: [email or web address]. JEAN PAUL attempted to educate daughter on hospice, however daughter quickly got off the phone w/JEAN PAUL. JEAN PAUL emailed the daughter the hospice number and this SW's number, asked her to call SW once she speaks w/hospice to let SW know if she would like a referral made. JEAN PAUL will continue to follow. ALISA De Leon
--- NOTE | 2025-02-28 11:44 | CASEMGMT ---
Social Work SW spoke w/daughter in room, she is here now visiting w/pt's . asked SW to help get a new call button as the one in the room does not light up. SW spoke w/the secretary specialist, she is working on getting a call button that lights up. SW spoke w/pt, and daughter. Initially daughter had emailed SW and asked her to speak w/SW outside of the room. SW did do this and explained that pt is alert and oriented and is POA. Daughter states she feels like talking about this in front of the parent is like talking about someone's in front of them. SW again reiterated that pt and need to be part of this conversation. Daughter then went on to say is very hard of hearing, and she has a voice to text [place] on her phone but it does not always work well, she expressed frustration. SW offered support, explained we can also write things down. Daughter also asking for information that would be sent to hospice. SW explained we can have pt sign for medical records, SW cannot just give them records, SW explained will come back w/the form. SW returned w/the form. SW explained to daughter pt is [id number] so this is his decision, and is POA. SW explained will speak w/pt and about hospice referral. SW spoke w/both of them, both are agreeable. SW asked pt about getting copy of the H&P. Pt states he does not care, at this point is deferring to his /POA. SW then spoke w/ and daughter, on board with getting the H&P, she signed the release of records. JEAN PAUL then did provide a list of hospice agencies in the geographic area that take pt's insurance. clearly stating she wants [facility]. Daughter continued to tell she wants to call the agencies to find out what services they offer. asked if they don't all offer generally the same thing, SW let them know that yes they do. RN came in to say physician will be by to speak w/them. Daughter states she does not have to be POA to make phone calls, and they want to discuss this further. SW explained will let them discuss and will return after they speak w/physician. SW reiterated to daughter that POA is in place for a reason and that legally SW needs to go in the order of the POA. SW called [facility], they will give the daughter the H&P if she goes to their office with the signed form. SW gave the form back to the daughter, let her know she can go pickle pumper the H&P since she has the form. Daughter will go pick it up, seems to know where [facility] is, SW can walk her over if needed. SW will check back w/ and daughter after they speak w/physician. ALISA De Leon
[2025-02-28] MEDS: Ensure Plus High Protein 120 ML LIQUID PO ×2 (13:10→17:46)
[2025-02-28] MEDS: Lactated Ringers 1,000 ML 75 ML IV (15:33)
[2025-02-28] MEDS: 0.9% Saline Lock 10 ML Syringe IV (15:34)
--- NOTE | 2025-02-28 15:50 | CASEMGMT ---
Social Work SW spoke w/pt and in room to check if they made a decision on speaking w/hospice. states nobody called her. SW reminded her that the daughter wanted to make phone calls first to decide on which hospice. Pt states he wants to wait to let his daughter finish making the phone calls before making a decision. SW explained will have SW follow up w/them in the morning. ALISA De Leon
[2025-02-28] MEDS: Latanoprost 0.005% 1 Bottle 1 DRP OPHTHALMIC (22:08)
[2025-03-01] VITALS (10 sets, daily range): BP systolic 71–100; BP diastolic 46–69; PULSE 70–80; RESP 16–18; TEMP 34.9–36.3; O2SAT 94–100; BMI 23.6
[2025-03-01] MEDS: Lactobacillis Acidophilus 1 CAP PO ×3 (05:41→21:27)
--- NOTE | 2025-03-01 08:41 | PCM.PN.HOSP ---
Reason for Visit Chief Complaint: Diarrhea for 2 weeks, very weak, mild short of breath on exertion. Subjective Subjective Patient seen and still continues to experience frequent loose bowel movement. Fecal management was placed Objective Data Objective Data Vital Signs: Vital Signs Temp Pulse Resp BP Pulse Ox O2 Del Method O2 Flow Rate 95.9 F L 73 18 92/59 L 94 Nasal Cannula 4 03/01/25 06:00 03/01/25 06:00 03/01/25 06:00 03/01/25 06:00 03/01/25 07:58 03/01/25 07:58 03/01/25 07:58 Oxygen Flow Rate (L/min) 4 Oxygen Delivery Method Nasal Cannula Weight: 79 kg Body Mass Index (BMI) 23.6 Intake & Output: Intake and Output for Last 24 Hours 02/27/25 02/28/25 03/01/25 23:59 23:59 23:59 Intake Total 2500 / 2500 1220 / 1680 1720 / 1720 Output Total 75 / 75 100 / 100 Balance 2425 / 2425 1120 / 1580 1720 / 1720 Medical Nutrition Assessment Dietitian: Malnutrition Criteria Met Start: 02/28/25 15:33 Freq: Status: Active Protocol: Document 02/28/25 15:33 SB (Rec: 02/28/25 15:33 SB [id number]) Nutrition Malnutrition Evidence of Yes Malnutrition Exists Malnutrition (severe Acute Illness/Injury ): Evidenced By Weight Loss (Severe),Physical Changes (Severe) Intake Problem Increased Nutrient Needs (specify) Etiology protein related to wound healing Signs/Symptoms as evidenced by pressure injury on coccyx Status Active Problem Clinical Problem Acute Disease or Injury Related Malnutrition Etiology severe related to inadequate energy intake due to c. diff Signs/Symptoms as evidenced by 12% weight loss x 2 months and severe muscle/fat wasting in clavicle, temples, and orbitals. Status Active Problem Recommendation Dietitian Continue regular diet. Recommendations/ Continue 120ml EPHP TID with medpass. Changes Will order james with breakfast and dinner to promote wound healing. Will monitor weight trends. Lab / Micro Data 02/28/25 07:00 02/28/25 07:00 Micro: Microbiology 02/27/25 16:04 Stool Stool Lactoferrin - Final 02/27/25 16:04 Stool Enteric Bacteriology - Final Yersinia enterocolitica 02/27/25 16:04 Stool C. difficile GDH Antigen & Toxins - Final Toxigenic C. difficile 02/27/25 16:04 Stool Clostridioides difficile (PCR) - Final Rhythm Strip Rhythm Strip: A-fib Rate: 90 Ectopy: PVC(s) Physical Exam Narrative GENERAL: hard of hearing HEENT: Atraumatic; normocephalic EYES; Anicteric, Normal Conjunctiva NECK; supple, normal thyroid, RESPIRATORY: Diminished to auscultation CARDIOVASCULAR: Irregularly irregular, systolic murmur GI: soft, normoactive bowel sounds, : No Renal angle tenderness; EXTREMITIES: 2+ bipedal edema no clubbing, MUSCULOSKELETAL: no muscle wasting NEURO: Awake; no lateralizing signs. SKIN: No Rash PSYCH; Flat affect Assessment & Plan Assessment/Plan (1) C. difficile colitis: (2) Generalized weakness: (3) CKD (chronic kidney disease), stage III: QUALIFIERS: Chronic kidney disease stage 3 subtype: stage 3b (GFR 30-44) Qualified Code(s): N18.32 - Chronic kidney disease, stage 3b PLAN: Plan Patient is an 89-year-old gentleman admitted with progressive generalized weakness as well as diarrhea 2 weeks duration. Patient's stool assay came back positive for C. difficile admitted to regular nursing floor for further management 1. Acute C. difficile colitis ? Patient has been admitted to a monitored bed. CT on admission did show Diffusely thickened and inflamed colon likely reflective of pancolitis. No bowel obstruction. Patient started on p.o. vancomycin ? 03/01/2025;Patient seen and still continues to experience frequent loose bowel movement. Fecal management was placed 2.Sepsis (present on admission) ? Second [place] to acute C. difficile colitis. Patient did receive IV fluid resuscitation with treatment of the underlying etiology. Patient did not receive 30cc/kg given his underlying history of congestive heart failure. Patient lactic acid levels did improve blood pressure still remains low patient started on midodrine 3. 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 Patient remains compensated at this point 4. Chronic kidney disease stage IIIa ? Monitoring kidney function with daily BMPs 5. Gout ? Patient is on allopurinol did continue 6. Dyslipidemia ? Patient is on both pravastatin as well as niacin did continue 7. Severe protein calorie malnutrition - BMI 22.2 kg/m? but patient has severe malnutrition. Patient has decreased muscle mass of extremities, bilateral chronic shoulder weakness, intercostal and costovertebral muscles, craniofacial muscle and loss of subcutaneous fat. Consult was placed to nutrition 8. Paroxysmal Atrial Fibrillation -Rate controlled with carvedilol. Patient was on systemic anticoagulation with apixaban did continue 9. Coronary artery disease ? With previous PCI in 2009 patient remains on guideline directed medical therapy 10. Thrombocytopenia ? Appears to be chronic patient platelet count has been ranging from 100-70 since 2002. Daily monitoring with CBC with differential ordered 11. DVT prophylaxis - Not indicated, patient on full dose anticoagulation Charges/Coding Visit Charges Inpatient E&M: 23231 Subs Hosp L2
[2025-03-01] MEDS: Vancomycin 125 MG/5 ML Susp PO.SYRINGE PO ×4 (09:14→21:27)
[2025-03-01] MEDS: Smz/Tmp Ds Tablet 1 TABLET PO ×2 (09:14→17:54)
[2025-03-01] MEDS: APIXABAN 2.5 MG TABLET (WCH) PO ×2 (09:14→21:27)
[2025-03-01] MEDS: BRINZOLAMIDE/BRIMONID TART 1 DROP DROPS.SUSP 1 DRP EACH EYE ×2 (09:15→21:36)
--- NOTE | 2025-03-01 10:06 | CASEMGMT ---
Social Work SW met with pt to continue discussion regarding hospice care. SW answered pt's questions. Pt states he does not have an answer at this time regarding if he will meet with hospice and which hospice he would prefer. Pt states he needs to talk to his and daughter and requests SW revisit tomorrow. Physician notified that pt has not made decision yet. SW to continue to follow. KANA Adames
--- NOTE | 2025-03-01 12:20 | NURSING ---
Educated pt's family on cdiff and long period of treatment and transmission characteristics. I told them they needed to wear a gown and gloves in the room and remove prior to leaving the room as well as wash with soap and water prior to leaving the room. The family were not responsive to my direction.
--- NOTE | 2025-03-01 14:00 | CASEMGMT ---
Addendum entered by Nori Mccarty 03/01/25 14:46: Social Work - Hospice Hospice will meet with pt and family tomorrow at 0930. Nursing updated. KANA Adames Original Note: Social Work SW called to pt room by pt's . SW met with pt's Desire, pt's 's brother Kwaku Alford and Kwaku's . Pt sleeping throughout conversation. Desire and Kwaku state they visited [facility] today. SW answered questions regarding hospice care, hospice at home and hospice at alf. SW also explained difference between alf with hospice and alf for skilled rehab. Desire and Kwaku are agreeable to hospice consult but state they are uncertain if they want hospice or rehab. SW inquired about which hospice that Desire would like to utilize and Desire is requesting [facility]. Physician updated and agreeable to hospice consult. Clinicals faxed to [facility] and referral called in. A list of SNF providers including quality and resource use data and consistent with the patient?s preferred geographic region, medical needs, and insurance network were provided from the [employer] Guide. JEAN PAUL also provided a list of private duty aides as family was discussing taking pt home with help at home. SW will continue to follow. Plan: Informational hospice consultation to assist pt and family in decision making of goals. KANA Adames
--- NOTE | 2025-03-01 14:26 | CASEMGMT ---
Discharge Planning A list of?SNF providers including quality and resource use data and consistent with the patient's preferred geographic region, medical needs, and insurance network (private pay and [facility]) was created in [employer] Guide.? This list was provided to the SW. Francesca Gonzalez Discharge Planning Asst.
[2025-03-01] MEDS: 0.9% Saline Lock 10 ML Syringe IV (21:27)
[2025-03-01] MEDS: Latanoprost 0.005% 1 Bottle 1 DRP OPHTHALMIC (21:39)
[2025-03-02 03:21] VITALS: BP 92/59; PULSE 77; RESP 17; TEMP 36.1; O2SAT 97
[2025-03-02 05:30] VITALS: BMI 24.8
[2025-03-02 05:51] VITALS: BP 95/58; PULSE 75; RESP 17; TEMP 36.1; O2SAT 99
[2025-03-02] MEDS: Lactobacillis Acidophilus 1 CAP PO ×3 (05:52→21:58)
[2025-03-02 06:05] LABS: Hematocrit 34.6 % (40-54); Hemoglobin 12.2 g/dL (13.0-16.5); Immature Granulocytes Count 1.210 X10^3/uL (0.0-0.0); Mean Corp Hgb Conc 35.3 g/dL (32-36); Mean Corpuscular Volume 104.2 fL (80-94); Mean Platelet Vol. 10.3 fl (6.2-12.0); NRBC Flagged by Analyzer 0.1 % (0-5); POSITIVE DIFFERENTIAL YES; POSITIVE MORPHOLOGY YES; Platelet Count 166 K/mm3 (150-450); RBC Distribution Width CV 15.7 % (11.6-14.6); RBC Distribution Width SD 60.3 fl (35.1-43.9); Red Blood Count 3.32 M/mm3 (4.6-6.2); White Blood Count 26.8 K/mm3 (4.4-11.0)
[2025-03-02 06:31] LABS: Anion Gap 10 (5-15); BUN 53 mg/dL (4-19); BUN/Creat Ratio 32.1 RATIO (10-20); Calcium,Total 8.1 mg/dL (7.6-11.0); Carbon Dioxide 20.6 mmol/L (21.0-32.0); Chloride 99 mmol/L (98-108); Estimated Creatinine Clearance 33.76 ml/min (50-250); Glucose 91 mg/dL (70-99); Potassium 3.5 mmol/L (3.3-5.1)
[2025-03-02 07:00] LABS: Differential Indicated SCAN CRITERIA MET
[2025-03-02 07:01] LABS: Macrocytosis 1+; Toxic Granulation 1+
[2025-03-02 09:16] VITALS: BP 91/75; PULSE 73; RESP 15; TEMP 36.4; O2SAT 94
[2025-03-02] MEDS: APIXABAN 2.5 MG TABLET (WCH) PO ×2 (09:37→21:58)
[2025-03-02] MEDS: Smz/Tmp Ds Tablet 1 TABLET PO ×2 (09:37→18:03)
[2025-03-02] MEDS: Ensure Plus High Protein 120 ML LIQUID PO ×3 (09:38→18:04)
[2025-03-02] MEDS: Vancomycin 125 MG/5 ML Susp PO.SYRINGE PO ×4 (09:38→21:57)
[2025-03-02] MEDS: BRINZOLAMIDE/BRIMONID TART 1 DROP DROPS.SUSP 1 DRP EACH EYE ×2 (09:38→21:56)
--- NOTE | 2025-03-02 09:50 | PN.HOSP_ITS ---
Reason for Visit Chief Complaint: Diarrhea for 2 weeks, very weak, mild short of breath on exertion. Subjective Subjective Patient seen continues to experience loose bowel movement and had 3 episodes of loose bowel movement during the night. His rectal tube has been discontinued. Patient creatinine increasing in addition to his WBC count Objective Data Objective Data Vital Signs: Vital Signs Temp Pulse Resp BP Pulse Ox O2 Del Method O2 Flow Rate 97.6 F L 73 15 91/75 94 Nasal Cannula 3 03/02/25 09:16 03/02/25 09:16 03/02/25 09:16 03/02/25 09:16 03/02/25 09:16 03/02/25 09:16 03/02/25 09:16 Oxygen Flow Rate (L/min) 3 Oxygen Delivery Method Nasal Cannula Weight: 83.1 kg Body Mass Index (BMI) 24.8 Intake & Output: Intake and Output for Last 24 Hours 02/28/25 03/01/25 03/02/25 23:59 23:59 23:59 Intake Total 1220 / 1680 1720 / 1920 300 / 300 Output Total 100 / 100 50 / 300 300 / 300 Balance 1120 / 1580 1670 / 1620 0 / 0 Medical Nutrition Assessment Dietitian: Malnutrition Criteria Met Start: 02/28/25 15:33 Freq: Status: Active Protocol: Document 02/28/25 15:33 SB (Rec: 02/28/25 15:33 SB [id number]) Nutrition Malnutrition Evidence of Yes Malnutrition Exists Malnutrition (severe Acute Illness/Injury ): Evidenced By Weight Loss (Severe),Physical Changes (Severe) Intake Problem Increased Nutrient Needs (specify) Etiology protein related to wound healing Signs/Symptoms as evidenced by pressure injury on coccyx Status Active Problem Clinical Problem Acute Disease or Injury Related Malnutrition Etiology severe related to inadequate energy intake due to c. diff Signs/Symptoms as evidenced by 12% weight loss x 2 months and severe muscle/fat wasting in clavicle, temples, and orbitals. Status Active Problem Recommendation Dietitian Continue regular diet. Recommendations/ Continue 120ml EPHP TID with medpass. Changes Will order james with breakfast and dinner to promote wound healing. Will monitor weight trends. Lab / Micro Data 03/02/25 05:40 03/02/25 05:40 Labs: Laboratory Results - last 24 hr 03/02/25 05:40: WBC 26.8 H, RBC 3.32 L, Hgb 12.2 L, Hct 34.6 L, MCV 104.2 H, MCH 36.7 H, MCHC 35.3, RDW Std Deviation 60.3 H, RDW Coeff of Yanet 15.7 H, Plt Count 166, MPV 10.3, Immature Gran % (Auto) 4.500 H, Neut % (Auto) 85.1 H, Lymph % (Auto) 4.2 L, Garrard % (Auto) 5.0, Eos % (Auto) 1.2, Baso % (Auto) 0.0, Absolute Neuts (auto) 22.8 H, Absolute Lymphs (auto) 1.13, Nucleated RBC % 0.1, Toxic Granulation 1+, Macrocytosis 1+, Sodium 130 L, Potassium 3.5, Chloride 99, C arbon Dioxide 20.6 L, Anion Gap 10, BUN 53 H, Creatinine 1.66 H, Estim Creat Clear Calc 33.76 L, Est GFR (MDRD) Non-Af 39 L, BUN/Creatinine Ratio 32.1 H, Glucose 91, Calcium 8.1 Micro: Microbiology 02/27/25 16:04 Stool Stool Lactoferrin - Final 02/27/25 16:04 Stool Enteric Bacteriology - Final Yersinia enterocolitica 02/27/25 16:04 Stool C. difficile GDH Antigen & Toxins - Final Toxigenic C. difficile 02/27/25 16:04 Stool Clostridioides difficile (PCR) - Final Rhythm Strip Rhythm Strip: A-fib Rate: 90 Ectopy: PVC(s) Physical Exam Narrative GENERAL: hard of hearing HEENT: Atraumatic; normocephalic EYES; Anicteric, Normal Conjunctiva NECK; supple, normal thyroid, RESPIRATORY: Diminished to auscultation CARDIOVASCULAR: Irregularly irregular, systolic murmur GI: soft, normoactive bowel sounds, : No Renal angle tenderness; EXTREMITIES: 2+ bipedal edema no clubbing, MUSCULOSKELETAL: no muscle wasting NEURO: Awake; no lateralizing signs. SKIN: No Rash PSYCH; Flat affect Assessment & Plan Assessment/Plan (1) C. difficile colitis: (2) Generalized weakness: (3) CKD (chronic kidney disease), stage III: QUALIFIERS: Chronic kidney disease stage 3 subtype: stage 3b (GFR 30-44) Qualified Code(s): N18.32 - Chronic kidney disease, stage 3b PLAN: Plan Patient is an 89-year-old gentleman admitted with progressive generalized weakness as well as diarrhea 2 weeks duration. Patient's stool assay came back positive for C. difficile admitted to regular nursing floor for further management 1. Acute C. difficile colitis ? Patient has been admitted to a monitored bed. CT on admission did show Diffusely thickened and inflamed colon likely reflective of pancolitis. No bowel obstruction. Patient started on p.o. vancomycin ? 03/01/2025;Patient seen and still continues to experience frequent loose bowel movement. Fecal management was placed ? 03/02/2025; patient fecal management system discontinued, WBC count remains elevated and patient continues to experience loose bowel movement 2.Sepsis (present on admission) ? Second [place] to acute C. difficile colitis. Patient did receive IV fluid resuscitation with treatment of the underlying etiology. Patient did not receive 30cc/kg given his underlying history of congestive heart failure. Patient lactic acid levels did improve blood pressure still remains low patient started on midodrine 3. 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 Patient remains compensated at this point 4. Chronic kidney disease stage IIIa ? Monitoring kidney function with daily BMPs 5. Acute kidney injury ? Superimposed on chronic kidney disease stage IIIa ;Creatinine on admission was 1.10 creatinine as of this a.m. was 1.6. Did continue with gentle IV fluid repeat BMP ordered in a.m. 6. Dyslipidemia ? Patient is on both pravastatin as well as niacin did continue 7. Severe protein calorie malnutrition - BMI 22.2 kg/m? but patient has severe malnutrition. Patient has decreased muscle mass of extremities, bilateral chronic shoulder weakness, intercostal and costovertebral muscles, craniofacial muscle and loss of subcutaneous fat. Consult was placed to nutrition 8. Paroxysmal Atrial Fibrillation -Rate controlled with carvedilol. Patient was on systemic anticoagulation with apixaban did continue 9. Coronary artery disease ? With previous PCI in 2009 patient remains on guideline directed medical therapy 10. Thrombocytopenia ? Appears to be chronic patient platelet count has been ranging from 100-70 since 2002. Daily monitoring with CBC with differential ordered 11. Gout ? Patient is on allopurinol did continue 12. DVT prophylaxis - Not indicated, patient on full dose anticoagulation Charges/Coding Visit Charges Inpatient E&M: 92841 Subs Hosp L2
[2025-03-02] MEDS: 0.9% Normal Saline (1000mL) 1,000 ML 75 ML IV (11:09)
--- NOTE | 2025-03-02 11:47 | CASEMGMT ---
Social Work Pt, pt's Desire, brother in law Kwaku and pts dgt Susan met with [facility]. After conversation, SW spoke with Melissa from [facility] who states that pt's dgt was vocal throughout conversation and did not want hospice services for pt and pt agreed with dgt. Pt and dgt stating that pt will return home with family providing care. SW met with pt's Desire and LUIS Kwaku privately. Desire confirms that they do not want hospice services nor do they want help in the home as pt's dgt does not allow people in the home. Pt's denies hospice and home health. Pt's states she and dgt will provide the needed care for pt. SW met with pt to discuss discharge plan. Pt confirms the above discharge plan. Pt denies need for home health. Physician, nursing and therapy updated on discharge plan. KANA Rodriguez
[2025-03-02 17:54] VITALS: BP 90/62; PULSE 89; RESP 14; TEMP 36.6; O2SAT 93
[2025-03-02] MEDS: Latanoprost 0.005% 1 Bottle 1 DRP OPHTHALMIC (21:56)
[2025-03-02] MEDS: 0.9% Saline Lock 10 ML Syringe IV (22:07)
[2025-03-02 22:08] VITALS: BP 95/58; PULSE 80; RESP 16; TEMP 36.3; O2SAT 98
[2025-03-03] MEDS: 0.9% Normal Saline (1000mL) 1,000 ML 75 ML IV ×2 (00:35→12:47)
[2025-03-03 03:44] VITALS: BP 99/71; PULSE 74; RESP 16; TEMP 36.1; O2SAT 100
[2025-03-03 05:13] VITALS: BMI 25.3
[2025-03-03] MEDS: Lactobacillis Acidophilus 1 CAP PO ×3 (05:55→21:55)
[2025-03-03 06:12] LABS: Hematocrit 37.1 % (40-54); Hemoglobin 12.8 g/dL (13.0-16.5); Immature Granulocytes Count 0.770 X10^3/uL (0.0-0.0); Mean Corp Hgb Conc 34.5 g/dL (32-36); Mean Corpuscular Volume 107.5 fL (80-94); Mean Platelet Vol. 11.2 fl (6.2-12.0); NRBC Flagged by Analyzer 0.1 % (0-5); Platelet Count 181 K/mm3 (150-450); RBC Distribution Width CV 15.9 % (11.6-14.6); RBC Distribution Width SD 63.4 fl (35.1-43.9); Red Blood Count 3.45 M/mm3 (4.6-6.2); White Blood Count 16.7 K/mm3 (4.4-11.0)
[2025-03-03 06:46] LABS: Anion Gap 9 (5-15); BUN 56 mg/dL (4-19); BUN/Creat Ratio 35.0 RATIO (10-20); Calcium,Total 8.2 mg/dL (7.6-11.0); Carbon Dioxide 23.9 mmol/L (21.0-32.0); Chloride 100 mmol/L (98-108); Estimated Creatinine Clearance 34.81 ml/min (50-250); Glucose 87 mg/dL (70-99); Potassium 3.9 mmol/L (3.3-5.1)
[2025-03-03] MEDS: Smz/Tmp Ds Tablet 1 TABLET PO (09:10)
[2025-03-03] MEDS: APIXABAN 2.5 MG TABLET (WCH) PO ×2 (09:10→21:54)
[2025-03-03] MEDS: Ensure Plus High Protein 120 ML LIQUID PO ×3 (09:12→17:51)
[2025-03-03 09:14] VITALS: BP 108/78; PULSE 78; RESP 17; TEMP 36.6; O2SAT 95
[2025-03-03] MEDS: BRINZOLAMIDE/BRIMONID TART 1 DROP DROPS.SUSP 1 DRP EACH EYE ×2 (09:19→21:56)
[2025-03-03] MEDS: Vancomycin 125 MG/5 ML Susp PO.SYRINGE PO ×4 (09:21→21:58)
--- NOTE | 2025-03-03 10:12 | PCM.PN.HOSP ---
Reason for Visit Chief Complaint: Diarrhea for 2 weeks, very weak, mild short of breath on exertion. Subjective Subjective Patient seen continues to experience several loose bowel movement. Patient kidney function did not improve still at 1.61 I added acidophilus to patient treatment regimen Objective Data Objective Data Vital Signs: Vital Signs Temp Pulse Resp BP Pulse Ox O2 Del Method O2 Flow Rate 98 F 78 17 108/78 95 Nasal Cannula 3 03/03/25 09:14 03/03/25 09:14 03/03/25 09:14 03/03/25 09:14 03/03/25 09:14 03/03/25 09:14 03/03/25 09:14 Oxygen Flow Rate (L/min) 3 Oxygen Delivery Method Nasal Cannula Weight: 84.8 kg Body Mass Index (BMI) 25.3 Intake & Output: Intake and Output for Last 24 Hours 03/01/25 03/02/25 03/03/25 23:59 23:59 23:59 Intake Total 1720 / 1920 1840 / 1840 760 / 760 Output Total 50 / 300 620 / 620 200 / 200 Balance 1670 / 1620 1220 / 1220 560 / 560 Medical Nutrition Assessment Dietitian: Malnutrition Criteria Met Start: 02/28/25 15:33 Freq: Status: Active Protocol: Document 02/28/25 15:33 SB (Rec: 02/28/25 15:33 SB [id number]) Nutrition Malnutrition Evidence of Yes Malnutrition Exists Malnutrition (severe Acute Illness/Injury ): Evidenced By Weight Loss (Severe),Physical Changes (Severe) Intake Problem Increased Nutrient Needs (specify) Etiology protein related to wound healing Signs/Symptoms as evidenced by pressure injury on coccyx Status Active Problem Clinical Problem Acute Disease or Injury Related Malnutrition Etiology severe related to inadequate energy intake due to c. diff Signs/Symptoms as evidenced by 12% weight loss x 2 months and severe muscle/fat wasting in clavicle, temples, and orbitals. Status Active Problem Recommendation Dietitian Continue regular diet. Recommendations/ Continue 120ml EPHP TID with medpass. Changes Will order james with breakfast and dinner to promote wound healing. Will monitor weight trends. Lab / Micro Data 03/03/25 05:42 03/03/25 05:42 Labs: Laboratory Results - last 24 hr 03/03/25 05:42: WBC 16.7 H, RBC 3.45 L, Hgb 12.8 L, Hct 37.1 L, MCV 107.5 H, MCH 37.1 H, MCHC 34.5, RDW Std Deviation 63.4 H, RDW Coeff of Yanet 15.9 H, Plt Count 181, MPV 11.2, Immature Gran % (Auto) 4.600 H, Neut % (Auto) 80.1 H, Lymph % (Auto) 7.4 L, [place] % (Auto) 6.1, Eos % (Auto) 1.2, Baso % (Auto) 0.6, Absolute Neuts (auto) 13.4 H, Absolute Lymphs (auto) 1.23, Nucleated RBC % 0.1, Sodium 133, Potassium 3.9, Chloride 100, Carbon Dioxide 23.9, Anion Gap 9, BUN 56 H, Creatinine 1.61 H, Estim Creat Clear Calc 34.81 L, Est GFR (MDRD) Non-Af 41 L, BUN/Creatinine Ratio 35.0 H, Glucose 87, Calcium 8.2 Micro: Microbiology 02/27/25 16:04 Stool Stool Lactoferrin - Final 02/27/25 16:04 Stool Enteric Bacteriology - Final Yersinia enterocolitica 02/27/25 16:04 Stool C. difficile GDH Antigen & Toxins - Final Toxigenic C. difficile 02/27/25 16:04 Stool Clostridioides difficile (PCR) - Final Rhythm Strip Rhythm Strip: A-fib Rate: 90 Ectopy: PVC(s) Physical Exam Narrative GENERAL: hard of hearing HEENT: Atraumatic; normocephalic EYES; Anicteric, Normal Conjunctiva NECK; supple, normal thyroid, RESPIRATORY: Diminished to auscultation CARDIOVASCULAR: Irregularly irregular, systolic murmur GI: soft, normoactive bowel sounds, : No Renal angle tenderness; EXTREMITIES: 2+ bipedal edema no clubbing, MUSCULOSKELETAL: no muscle wasting NEURO: Awake; no lateralizing signs. SKIN: No Rash PSYCH; Flat affect Assessment & Plan Assessment/Plan (1) C. difficile colitis: (2) Generalized weakness: (3) CKD (chronic kidney disease), stage III: QUALIFIERS: Chronic kidney disease stage 3 subtype: stage 3b (GFR 30-44) Qualified Code(s): N18.32 - Chronic kidney disease, stage 3b PLAN: Plan Patient is an 89-year-old gentleman admitted with progressive generalized weakness as well as diarrhea 2 weeks duration. Patient's stool assay came back positive for C. difficile admitted to regular nursing floor for further management 1. Acute C. difficile colitis ? Patient has been admitted to a monitored bed. CT on admission did show Diffusely thickened and inflamed colon likely reflective of pancolitis. No bowel obstruction. Patient started on p.o. vancomycin ? 03/01/2025;Patient seen and still continues to experience frequent loose bowel movement. Fecal management was placed ? 03/02/2025; patient fecal management system discontinued, WBC count remains elevated and patient continues to experience loose bowel movement ? 03/03/2025; patient continues to experience loose bowel movement. Added lactobacillus to patient treatment regimen 2.Sepsis (present on admission) ? Second [place] to acute C. difficile colitis. Patient did receive IV fluid resuscitation with treatment of the underlying etiology. Patient did not receive 30cc/kg given his underlying history of congestive heart failure. Patient lactic acid levels did improve blood pressure still remains low patient started on midodrine 3. 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 Patient remains compensated at this point 4. Chronic kidney disease stage IIIa ? Monitoring kidney function with daily BMPs 5. Acute kidney injury ? Superimposed on chronic kidney disease stage IIIa ;Creatinine on admission was 1.10 creatinine as of this a.m. was 1.6. Did continue with gentle IV fluid repeat BMP ordered in a.m. ? 03/03/2025; no improvement in kidney function. Patient is on Bactrim held 6. Dyslipidemia ? Patient is on both pravastatin as well as niacin did continue 7. Severe protein calorie malnutrition - BMI 22.2 kg/m? but patient has severe malnutrition. Patient has decreased muscle mass of extremities, bilateral chronic shoulder weakness, intercostal and costovertebral muscles, craniofacial muscle and loss of subcutaneous fat. Consult was placed to nutrition 8. Paroxysmal Atrial Fibrillation -Rate controlled with carvedilol. Patient was on systemic anticoagulation with apixaban did continue 9. Coronary artery disease ? With previous PCI in 2009 patient remains on guideline directed medical therapy 10. Thrombocytopenia ? Appears to be chronic patient platelet count has been ranging from 100-70 since 2002. Daily monitoring with CBC with differential ordered 11. Gout ? Patient is on allopurinol did continue 12. DVT prophylaxis - Not indicated, patient on full dose anticoagulation 13. Physical deconditioning ? Requested for PT OT eval and social security assessor to assist with discharge planning. Case management did discuss with family regarding possible hospice consultation patient's family after meeting hospice elected for patient to be discharged home when medically stable Charges/Coding Visit Charges Inpatient E&M: 25236 Subs Hosp L2
[2025-03-03 17:43] VITALS: BP 117/86; PULSE 72; RESP 18; TEMP 36.6; O2SAT 98
[2025-03-03 21:49] VITALS: BP 125/60; PULSE 82; RESP 18; TEMP 36.1; O2SAT 96
[2025-03-03] MEDS: Latanoprost 0.005% 1 Bottle 1 DRP OPHTHALMIC (21:58)
[2025-03-04] VITALS (9 sets, daily range): BP systolic 102–141; BP diastolic 61–96; PULSE 65–97; RESP 16–18; TEMP 35.8–36.1; O2SAT 94–99; BMI 25.0
[2025-03-04] MEDS: 0.9% Normal Saline (1000mL) 1,000 ML 75 ML IV ×2 (02:14→13:38)
[2025-03-04] MEDS: Lactobacillis Acidophilus 1 CAP PO ×3 (05:57→23:01)
[2025-03-04] MEDS: Vancomycin 125 MG/5 ML Susp PO.SYRINGE PO ×4 (10:37→23:00)
[2025-03-04] MEDS: APIXABAN 2.5 MG TABLET (WCH) PO ×2 (10:39→23:01)
[2025-03-04] MEDS: BRINZOLAMIDE/BRIMONID TART 1 DROP DROPS.SUSP 1 DRP EACH EYE ×2 (10:40→23:05)
--- NOTE | 2025-03-04 10:59 | PCM.PN.HOSP ---
Reason for Visit Chief Complaint: Diarrhea for 2 weeks, very weak, mild short of breath on exertion. Subjective Subjective Patient seen still having loose bowel movement. Will continue with p.o. vancomycin. Ordered a.m. lab Objective Data Objective Data Vital Signs: Vital Signs Temp Pulse Resp BP Pulse Ox O2 Del Method O2 Flow Rate 97.0 F L 78 18 111/67 95 Nasal Cannula 3 03/04/25 04:05 03/04/25 04:05 03/04/25 04:05 03/04/25 04:05 03/04/25 04:05 03/04/25 04:05 03/04/25 04:05 Oxygen Flow Rate (L/min) 3 Oxygen Delivery Method Nasal Cannula Weight: 83.6 kg Body Mass Index (BMI) 25.0 Intake & Output: Intake and Output for Last 24 Hours 03/02/25 03/03/25 03/04/25 23:59 23:59 23:59 Intake Total 1840 / 1840 2790 / 2790 1000 / 1000 Output Total 620 / 620 800 / 800 300 / 300 Balance 1220 / 1220 1989 / 1989 700 / 700 Medical Nutrition Assessment Dietitian: Malnutrition Criteria Met Start: 02/28/25 15:33 Freq: Status: Active Protocol: Document 03/03/25 14:00 SB (Rec: 03/03/25 14:00 SB [id number]) Nutrition Malnutrition Evidence of Yes Malnutrition Exists Malnutrition (severe Acute Illness/Injury ): Evidenced By Suboptimal Energy Intake (Severe),Weight Loss (Severe), Physical Changes (Severe) Intake Problem Increased Nutrient Needs (specify) Etiology protein related to wound healing Signs/Symptoms as evidenced by pressure injury on coccyx Status Active Problem Clinical Problem Acute Disease or Injury Related Malnutrition Etiology severe related to inadequate oral/energy intake due to c.diff Signs/Symptoms as evidenced by PO meeting <50% of estimated nutrition needs x 3 weeks, 12% weight loss x 2 months and severe muscle/fat wasting in clavicle, temples, and orbitals. Status Active Problem Recommendation Dietitian Continue regular diet and james with breakfast and Recommendations/ dinner. Changes Continue 120ml EPHP TID with medpass. Will order chocolate milkshake with dinner. Will monitor weight trends. Lab / Micro Data 03/03/25 05:42 03/03/25 05:42 Micro: Microbiology 02/27/25 16:04 Stool Ova and Parasites - Final 02/27/25 16:04 Stool Stool Lactoferrin - Final 02/27/25 16:04 Stool Enteric Bacteriology - Final Yersinia enterocolitica 02/27/25 16:04 Stool C. difficile GDH Antigen & Toxins - Final Toxigenic C. difficile 02/27/25 16:04 Stool Clostridioides difficile (PCR) - Final Rhythm Strip Rhythm Strip: A-fib Rate: 90 Ectopy: PVC(s) Physical Exam Narrative GENERAL: hard of hearing HEENT: Atraumatic; normocephalic EYES; Anicteric, Normal Conjunctiva NECK; supple, normal thyroid, RESPIRATORY: Diminished to auscultation CARDIOVASCULAR: Irregularly irregular, systolic murmur GI: soft, normoactive bowel sounds, : No Renal angle tenderness; EXTREMITIES: 2+ bipedal edema no clubbing, MUSCULOSKELETAL: no muscle wasting NEURO: Awake; no lateralizing signs. SKIN: No Rash PSYCH; Flat affect Assessment & Plan Assessment/Plan (1) C. difficile colitis: (2) Generalized weakness: (3) CKD (chronic kidney disease), stage III: QUALIFIERS: Chronic kidney disease stage 3 subtype: stage 3b (GFR 30-44) Qualified Code(s): N18.32 - Chronic kidney disease, stage 3b PLAN: Plan Patient is an 89-year-old gentleman admitted with progressive generalized weakness as well as diarrhea 2 weeks duration. Patient's stool assay came back positive for C. difficile admitted to regular nursing floor for further management 1. Acute C. difficile colitis ? Patient has been admitted to a monitored bed. CT on admission did show Diffusely thickened and inflamed colon likely reflective of pancolitis. No bowel obstruction. Patient started on p.o. vancomycin ? 03/01/2025;Patient seen and still continues to experience frequent loose bowel movement. Fecal management was placed ? 03/02/2025; patient fecal management system discontinued, WBC count remains elevated and patient continues to experience loose bowel movement ? 03/03/2025; patient continues to experience loose bowel movement. Added lactobacillus to patient treatment regimen ? 03/04/2025;Patient seen still having loose bowel movement. Will continue with p.o. vancomycin. Ordered a.m. lab 2.Sepsis (present on admission) ? Second [place] to acute C. difficile colitis. Patient did receive IV fluid resuscitation with treatment of the underlying etiology. Patient did not receive 30cc/kg given his underlying history of congestive heart failure. Patient lactic acid levels did improve blood pressure still remains low patient started on midodrine 3. 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 Patient remains compensated at this point 4. Chronic kidney disease stage IIIa ? Monitoring kidney function with daily BMPs 5. Acute kidney injury ? Superimposed on chronic kidney disease stage IIIa ;Creatinine on admission was 1.10 creatinine as of this a.m. was 1.6. Did continue with gentle IV fluid repeat BMP ordered in a.m. ? 03/03/2025; no improvement in kidney function. Patient is on Bactrim held 6. Dyslipidemia ? Patient is on both pravastatin as well as niacin did continue 7. Severe protein calorie malnutrition - BMI 22.2 kg/m? but patient has severe malnutrition. Patient has decreased muscle mass of extremities, bilateral chronic shoulder weakness, intercostal and costovertebral muscles, craniofacial muscle and loss of subcutaneous fat. Consult was placed to nutrition 8. Paroxysmal Atrial Fibrillation -Rate controlled with carvedilol. Patient was on systemic anticoagulation with apixaban did continue 9. Coronary artery disease ? With previous PCI in 2009 patient remains on guideline directed medical therapy 10. Thrombocytopenia ? Appears to be chronic patient platelet count has been ranging from 100-70 since 2002. Daily monitoring with CBC with differential ordered 11. Gout ? Patient is on allopurinol did continue 12. DVT prophylaxis - Not indicated, patient on full dose anticoagulation 13. Physical deconditioning ? Requested for PT OT eval and social media intern to assist with discharge planning. Case management did discuss with family regarding possible hospice consultation patient's family after meeting hospice elected for patient to be discharged home when medically stable Charges/Coding Visit Charges Inpatient E&M: 97153 Subs Hosp L2
[2025-03-04 12:00] LABS: Hematocrit 39.8 % (40-54); Hemoglobin 13.6 g/dL (13.0-16.5); Mean Corp Hgb Conc 34.2 g/dL (32-36); Mean Corpuscular Volume 108.2 fL (80-94); Mean Platelet Vol. 10.7 fl (6.2-12.0); POSITIVE MORPHOLOGY YES; Platelet Count 201 K/mm3 (150-450); RBC Distribution Width CV 16.2 % (11.6-14.6); RBC Distribution Width SD 65.1 fl (35.1-43.9); Red Blood Count 3.68 M/mm3 (4.6-6.2); White Blood Count 11.3 K/mm3 (4.4-11.0)
[2025-03-04 12:31] LABS: Scan Indicated on CBC? Y/N YES- FLAGS NOTED
[2025-03-04 12:48] LABS: Magnesium 1.9 mg/dL (1.5-2.2)
[2025-03-04 12:50] LABS: AST(SGOT) 37 U/L (<=37); Alanine Aminotransfer ALT/SGPT 28 U/L (<=46); Albumin, Serum 2.2 g/dL (3.4-4.8); Alkaline Phosphatase 426 U/L (40-129); Anion Gap 9 (5-15); BUN 46 mg/dL (4-19); BUN/Creat Ratio 32.5 RATIO (10-20); Calcium,Total 8.3 mg/dL (7.6-11.0); Carbon Dioxide 19.6 mmol/L (21.0-32.0); Chloride 103 mmol/L (98-108); Estimated Creatinine Clearance 39.75 ml/min (50-250); Globulin 3.2 g/dL (2.2-4.2); Glucose 102 mg/dL (70-99); Potassium 3.7 mmol/L (3.3-5.1)
[2025-03-04] MEDS: Ensure Plus High Protein 120 ML LIQUID PO ×2 (13:38→17:11)
[2025-03-04] MEDS: Latanoprost 0.005% 1 Bottle 1 DRP OPHTHALMIC (23:02)
[2025-03-05] VITALS (8 sets, daily range): BP systolic 98–131; BP diastolic 45–82; PULSE 69–89; RESP 18–20; TEMP 35.8–36.7; O2SAT 92–100
[2025-03-05] MEDS: Simethicone 40MG/0.6ML Bottle 160 MG PO (00:50)
[2025-03-05] MEDS: 0.9% Normal Saline (1000mL) 1,000 ML 75 ML IV ×2 (03:02→15:35)
[2025-03-05 04:37] LABS: Hematocrit 37.3 % (40-54); Hemoglobin 12.5 g/dL (13.0-16.5); Mean Corp Hgb Conc 33.5 g/dL (32-36); Mean Corpuscular Volume 109.4 fL (80-94); Mean Platelet Vol. 10.5 fl (6.2-12.0); POSITIVE COUNT YES; POSITIVE MORPHOLOGY YES; Platelet Count 199 K/mm3 (150-450); RBC Distribution Width CV 16.3 % (11.6-14.6); RBC Distribution Width SD 65.7 fl (35.1-43.9); Red Blood Count 3.41 M/mm3 (4.6-6.2); White Blood Count 10.2 K/mm3 (4.4-11.0)
[2025-03-05 04:41] LABS: Differential Indicated MANUAL DIFF
[2025-03-05 05:17] LABS: Anion Gap 7 (5-15); BUN 43 mg/dL (4-19); BUN/Creat Ratio 32.5 RATIO (10-20); Calcium,Total 8.2 mg/dL (7.6-11.0); Carbon Dioxide 23.3 mmol/L (21.0-32.0); Chloride 104 mmol/L (98-108); Estimated Creatinine Clearance 42.14 ml/min (50-250); Glucose 100 mg/dL (70-99); Potassium 3.7 mmol/L (3.3-5.1)
[2025-03-05 05:18] LABS: Neutrophil-Band 7 % (0-5); Neutrophil-Segmented 67 % (47-70); Total Cells Counted 100 (MANUAL DIFF)
[2025-03-05 05:19] LABS: Anisocytosis 1+
[2025-03-05] MEDS: Lactobacillis Acidophilus 1 CAP PO ×3 (06:04→21:57)
[2025-03-05] MEDS: APIXABAN 2.5 MG TABLET (WCH) PO ×2 (08:38→21:57)
[2025-03-05] MEDS: Vancomycin 125 MG/5 ML Susp PO.SYRINGE PO ×4 (08:38→21:58)
[2025-03-05] MEDS: BRINZOLAMIDE/BRIMONID TART 1 DROP DROPS.SUSP 1 DRP EACH EYE ×2 (08:41→21:57)
--- NOTE | 2025-03-05 08:57 | PCM.PN.HOSP ---
Reason for Visit Chief Complaint: Diarrhea for 2 weeks, very weak, mild short of breath on exertion. Subjective Subjective Patient seen much more interactive than previous day. Per patient his appetite is increasing. He still continues to experience loose bowel movement and has already had 1 this a.m. He also did complain of bloating. His kidney function and WBC count continue to improve Objective Data Objective Data Vital Signs: Vital Signs Temp Pulse Resp BP Pulse Ox O2 Del Method O2 Flow Rate 96.5 F L 87 18 131/82 H 100 Nasal Cannula 3 03/05/25 08:22 03/05/25 08:22 03/05/25 08:22 03/05/25 08:22 03/05/25 08:22 03/05/25 08:22 03/05/25 08:22 Oxygen Flow Rate (L/min) 3 Oxygen Delivery Method Nasal Cannula Weight: 83.6 kg Body Mass Index (BMI) 25.0 Intake & Output: Intake and Output for Last 24 Hours 03/03/25 03/04/25 03/05/25 23:59 23:59 23:59 Intake Total 2790 / 2790 1855 / 1855 1000 / 1000 Output Total 800 / 800 900 / 900 200 / 200 Balance 1989 955 / 955 800 / 800 Medical Nutrition Assessment Dietitian: Malnutrition Criteria Met Start: 02/28/25 15:33 Freq: Status: Active Protocol: Document 03/03/25 14:00 SB (Rec: 03/03/25 14:00 SB [id number]) Nutrition Malnutrition Evidence of Yes Malnutrition Exists Malnutrition (severe Acute Illness/Injury ): Evidenced By Suboptimal Energy Intake (Severe),Weight Loss (Severe), Physical Changes (Severe) Intake Problem Increased Nutrient Needs (specify) Etiology protein related to wound healing Signs/Symptoms as evidenced by pressure injury on coccyx Status Active Problem Clinical Problem Acute Disease or Injury Related Malnutrition Etiology severe related to inadequate oral/energy intake due to c.diff Signs/Symptoms as evidenced by PO meeting <50% of estimated nutrition needs x 3 weeks, 12% weight loss x 2 months and severe muscle/fat wasting in clavicle, temples, and orbitals. Status Active Problem Recommendation Dietitian Continue regular diet and james with breakfast and Recommendations/ dinner. Changes Continue 120ml EPHP TID with medpass. Will order chocolate milkshake with dinner. Will monitor weight trends. Lab / Micro Data 03/05/25 04:18 03/05/25 04:18 Labs: Laboratory Results - last 24 hr 03/04/25 11:53: WBC 11.3 H, RBC 3.68 L, Hgb 13.6, Hct 39.8 L, MCV 108.2 H, MCH 37.0 H, MCHC 34.2, RDW Std Deviation 65.1 H, RDW Coeff of Yanet 16.2 H, Plt Count 201, MPV 10.7, Sodium 132 L, Potassium 3.7, Chloride 103, Carbon Dioxide 19.6 L, Anion Gap 9, BUN 46 H, Creatinine 1.41 H, Estim Creat Clear Calc 39.75 L, Est GFR (MDRD) Non-Af 48 L, BUN/Creatinine Ratio 32.5 H, Glucose 102 H, Calcium 8.3, Phosphorus 3.1, Magnesium 1.9, Total Bilirubin 0.58, AST 37, ALT 28, Alkaline Phosphatase 426 H, Total Protein 5.4 L, Albumin 2.2 L, Globulin 3.2, Albumin/Globulin Ratio 0.7 L 03/05/25 04:18: WBC 10.2, RBC 3.41 L, Hgb 12.5 L, Hct 37.3 L, MCV 109.4 H, MCH 36.7 H, MCHC 33.5, RDW Std Deviation 65.7 H, RDW Coeff of Yanet 16.3 H, Plt Count 199, MPV 10.5, Neut % (Auto) Not Reportable, Absolute Neuts (auto) 7.5, Absolute Lymphs (auto) 2.03, Total Counted 100, Neutrophils % (Manual) 67, Band Neutrophils % 7 H, Lymphocytes % (Manual) 20, Monocytes % (Manual) 2, Eosinophils % (Manual) 2, Metamyelocytes % 1, Diff Path Review December, Platelet Estimate ADEQUATE, Anisocytosis 1+, Sodium 135, Potassium 3.7, Chloride 104, Carbon Dioxide 23.3, Anion Gap 7, BUN 43 H, Creatinine 1.33 H, Estim Creat Clear Calc 42.14 L, Est GFR (MDRD) Non-Af 51 L, BUN/Creatinine Ratio 32.5 H, Glucose 100 H, Calcium 8.2 Micro: Microbiology 02/27/25 16:04 Stool Ova and Parasites - Final 02/27/25 16:04 Stool Stool Lactoferrin - Final 02/27/25 16:04 Stool Enteric Bacteriology - Final Yersinia enterocolitica 02/27/25 16:04 Stool C. difficile GDH Antigen & Toxins - Final Toxigenic C. difficile 02/27/25 16:04 Stool Clostridioides difficile (PCR) - Final Rhythm Strip Rhythm Strip: A-fib Rate: 90 Ectopy: PVC(s) Physical Exam Narrative GENERAL: Frail looking HEENT: Atraumatic; normocephalic EYES; Anicteric, Normal Conjunctiva NECK; supple, normal thyroid, RESPIRATORY: Diminished to auscultation CARDIOVASCULAR: Irregularly irregular, systolic murmur GI: soft, normoactive bowel sounds, : No Renal angle tenderness; EXTREMITIES: 2+ bipedal edema MUSCULOSKELETAL: muscle wasting NEURO: Awake; no lateralizing signs. SKIN: No Rash PSYCH; Flat affect Assessment & Plan Assessment/Plan (1) C. difficile colitis: (2) Generalized weakness: (3) CKD (chronic kidney disease), stage III: QUALIFIERS: Chronic kidney disease stage 3 subtype: stage 3b (GFR 30-44) Qualified Code(s): N18.32 - Chronic kidney disease, stage 3b PLAN: Plan Patient is an 89-year-old gentleman admitted with progressive generalized weakness as well as diarrhea 2 weeks duration. Patient's stool assay came back positive for C. difficile admitted to regular nursing floor for further management 1. Acute C. difficile colitis ? Patient has been admitted to a monitored bed. CT on admission did show Diffusely thickened and inflamed colon likely reflective of pancolitis. No bowel obstruction. Patient started on p.o. vancomycin ? 03/01/2025;Patient seen and still continues to experience frequent loose bowel movement. Fecal management was placed ? 03/02/2025; patient fecal management system discontinued, WBC count remains elevated and patient continues to experience loose bowel movement ? 03/03/2025; patient continues to experience loose bowel movement. Added lactobacillus to patient treatment regimen ? 03/04/2025;Patient seen still having loose bowel movement. Will continue with p.o. vancomycin. Ordered a.m. lab ? 03/05/2025; patient WBC count continues to improve he however still has diarrhea necessitating continued stay in the hospital 2.Sepsis (present on admission) ? Second [place] to acute C. difficile colitis. Patient did receive IV fluid resuscitation with treatment of the underlying etiology. Patient did not receive 30cc/kg given his underlying history of congestive heart failure. Patient lactic acid levels did improve blood pressure still remains low patient started on midodrine 3. 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 Patient remains compensated at this point 4. Chronic kidney disease stage IIIa ? Monitoring kidney function with daily BMPs 5. Acute kidney injury ? Superimposed on chronic kidney disease stage IIIa ;Creatinine on admission was 1.10 creatinine as of this a.m. was 1.6. Did continue with gentle IV fluid repeat BMP ordered in a.m. ? 03/03/2025; no improvement in kidney function. Patient is on Bactrim held ? 03/05/2025; creatinine down to 1.3 6. Dyslipidemia ? Patient is on both pravastatin as well as niacin did continue 7. Severe protein calorie malnutrition - BMI 22.2 kg/m? but patient has severe malnutrition. Patient has decreased muscle mass of extremities, bilateral chronic shoulder weakness, intercostal and costovertebral muscles, craniofacial muscle and loss of subcutaneous fat. Consult was placed to nutrition 8. Paroxysmal Atrial Fibrillation -Rate controlled with carvedilol. Patient was on systemic anticoagulation with apixaban did continue 9. Coronary artery disease ? With previous PCI in 2009 patient remains on guideline directed medical therapy 10. Thrombocytopenia ? Appears to be chronic patient platelet count has been ranging from 100-70 since 2002. Daily monitoring with CBC with differential ordered 11. Gout ? Patient is on allopurinol did continue 12. DVT prophylaxis - Not indicated, patient on full dose anticoagulation 13. Physical deconditioning ? Requested for PT OT eval and web content & social media manager to assist with discharge planning. Case management did discuss with family regarding possible hospice consultation patient's family after meeting hospice elected for patient to be discharged home when medically stable Charges/Coding Visit Charges Inpatient E&M: 39949 Subs Hosp L2
[2025-03-05] MEDS: Ensure Plus High Protein 120 ML LIQUID PO ×2 (12:10→17:17)
[2025-03-05] MEDS: Latanoprost 0.005% 1 Bottle 1 DRP OPHTHALMIC (21:58)
[2025-03-06 04:57] VITALS: BMI 26.0
[2025-03-06] MEDS: 0.9% Normal Saline (1000mL) 1,000 ML 75 ML IV ×2 (05:36→21:02)
[2025-03-06] MEDS: Lactobacillis Acidophilus 1 CAP PO ×3 (05:37→21:02)
[2025-03-06 05:38] VITALS: BP 109/69; PULSE 82; RESP 20; TEMP 35.9; O2SAT 97
[2025-03-06 06:37] LABS: Hematocrit 35.7 % (40-54); Hemoglobin 11.7 g/dL (13.0-16.5); Mean Corp Hgb Conc 32.8 g/dL (32-36); Mean Corpuscular Volume 111.6 fL (80-94); Mean Platelet Vol. 10.3 fl (6.2-12.0); POSITIVE COUNT YES; POSITIVE MORPHOLOGY YES; Platelet Count 190 K/mm3 (150-450); RBC Distribution Width CV 16.5 % (11.6-14.6); RBC Distribution Width SD 68.6 fl (35.1-43.9); Red Blood Count 3.20 M/mm3 (4.6-6.2); White Blood Count 7.7 K/mm3 (4.4-11.0)
[2025-03-06 06:42] LABS: Differential Indicated MANUAL DIFF
[2025-03-06 06:48] VITALS: O2SAT 93
[2025-03-06 07:26] LABS: Neutrophil-Segmented 74 % (47-70); Total Cells Counted 100 (MANUAL DIFF)
[2025-03-06 07:28] LABS: Anion Gap 6 (5-15); BUN 30 mg/dL (4-19); BUN/Creat Ratio 33.6 RATIO (10-20); Calcium,Total 6.3 mg/dL (7.6-11.0); Carbon Dioxide 17.2 mmol/L (21.0-32.0); Chloride 113 mmol/L (98-108); Estimated Creatinine Clearance 62.97 ml/min (50-250); Glucose 78 mg/dL (70-99); Potassium 3.6 mmol/L (3.3-5.1)
[2025-03-06] MEDS: APIXABAN 2.5 MG TABLET (WCH) PO ×2 (08:59→21:02)
[2025-03-06] MEDS: Ensure Plus High Protein 120 ML LIQUID PO ×3 (09:00→17:14)
[2025-03-06] MEDS: BRINZOLAMIDE/BRIMONID TART 1 DROP DROPS.SUSP 1 DRP EACH EYE ×2 (09:00→21:04)
[2025-03-06 09:47] LABS: Cholesterol 67 mg/dL (<=200); Low Density Lipoprotein Calc. 26 mg/dL; Triglycerides 95 mg/dL; Very Low Density Lipoprotein 19 mg/dL (5-40); cholesterol:hdl ratio screen 3.09
[2025-03-06] MEDS: Calcium Gluconate IV 2 GM in 0.9% Normal Saline (100mL Bag) 100 ML IV (10:29)
[2025-03-06] MEDS: Vancomycin 125 MG/5 ML Susp PO.SYRINGE PO ×4 (10:29→21:02)
[2025-03-06 11:35] VITALS: BP 114/69; PULSE 73; RESP 18; TEMP 35.8; O2SAT 91
--- NOTE | 2025-03-06 15:04 | PN_ITS ---
Subjective Subjective Patient was seen with his nurse by his bedside. Patient looks very frail and weak. He had a bowel movement this morning but is getting more formed. He remains on 3 L of oxygen. He denies any fever or chills, palpitations, dizziness, nausea vomiting or any other symptoms. Review of systems otherwise negative. His calcium is low this morning at 6.3. Objective Data Objective Data Vital Signs: Vital Signs Temp Pulse Resp BP Pulse Ox O2 Del Method O2 Flow Rate 96.5 F L 73 18 114/69 91 Nasal Cannula 3 03/06/25 11:35 03/06/25 11:35 03/06/25 11:35 03/06/25 11:35 03/06/25 11:35 03/06/25 11:35 03/06/25 11:35 Oxygen Flow Rate (L/min) 3 Oxygen Delivery Method Nasal Cannula Weight: 192 lb 0.362 oz Body Mass Index (BMI) 26.0 Intake & Output: Intake and Output for Last 24 Hours 03/04/25 03/05/25 03/06/25 23:59 23:59 23:59 Intake Total 1855 / 1855 2181.25 / 2181.25 1240 / 1240 Output Total 900 / 900 950 / 950 200 / 200 Balance 955 / 955 1231.25 / 1231.25 1040 / 1040 Medical Nutrition Assessment Dietitian: Malnutrition Criteria Met Start: 02/28/25 15:33 Freq: Status: Active Protocol: Document 03/03/25 14:00 SB (Rec: 03/03/25 14:00 SB [id number]) Nutrition Malnutrition Evidence of Yes Malnutrition Exists Malnutrition (severe Acute Illness/Injury ): Evidenced By Suboptimal Energy Intake (Severe),Weight Loss (Severe), Physical Changes (Severe) Intake Problem Increased Nutrient Needs (specify) Etiology protein related to wound healing Signs/Symptoms as evidenced by pressure injury on coccyx Status Active Problem Clinical Problem Acute Disease or Injury Related Malnutrition Etiology severe related to inadequate oral/energy intake due to c.diff Signs/Symptoms as evidenced by PO meeting <50% of estimated nutrition needs x 3 weeks, 12% weight loss x 2 months and severe muscle/fat wasting in clavicle, temples, and orbitals. Status Active Problem Recommendation Dietitian Continue regular diet and james with breakfast and Recommendations/ dinner. Changes Continue 120ml EPHP TID with medpass. Will order chocolate milkshake with dinner. Will monitor weight trends. Lab / Micro Data 03/06/25 06:26 03/06/25 06:26 Labs: Laboratory Results - last 24 hr 03/06/25 06:26: WBC 7.7, RBC 3.20 L, Hgb 11.7 L, Hct 35.7 L, MCV 111.6 H, MCH 36.6 H, MCHC 32.8, RDW Std Deviation 68.6 H, RDW Coeff of Yanet 16.5 H, Plt Count 190, MPV 10.3, Neut % (Auto) Not Reportable, Absolute Neuts (auto) 5.7, Absolute Lymphs (auto) 1.30, Total Counted 100, Neutrophils % (Manual) 74 H, Lymphocytes % (Manual) 17 L, Monocytes % (Manual) 5, Eosinophils % (Manual) 1, Metamyelocytes % 1, Myelocytes % 2 H, Sodium 136, Potassium 3.6, Chloride 113 H, Carbon Dioxide 17.2 L, Anion Gap 6, BUN 30 H, Creatinine 0.89, Estim Creat Clear Calc 62.97, Est GFR (MDRD) Non-Af 82, BUN/Creatinine Ratio 33.6 H, Glucose 78, C alcium 6.3 L*, Triglycerides 95, Cholesterol 67, LDL Cholesterol, Calc 26, VLDL Cholesterol 19, HDL Cholesterol 22 L, Cholesterol/HDL Ratio 3.09 Micro: Microbiology 02/27/25 16:04 Stool Ova and Parasites - Final 02/27/25 16:04 Stool Stool Lactoferrin - Final 02/27/25 16:04 Stool Enteric Bacteriology - Final Yersinia enterocolitica 02/27/25 16:04 Stool C. difficile GDH Antigen & Toxins - Final Toxigenic C. difficile 02/27/25 16:04 Stool Clostridioides difficile (PCR) - Final Rhythm Strip Rhythm Strip: A-fib Rate: 90 Ectopy: PVC(s) Physical Exam Const alert and oriented x3 Constitutional Narrative: Patient is very frail and incredibly weak and lethargic. Orientation / Consciousness: lethargic HEENT normocephalic and head/scalp atraumatic Mouth: dry mucous membranes Eyes EOMs intact bilaterally Neck no lymphadenopathy and supple Lymph Lymphatic: no lymphedema noted Resp Resp Narrative: Mildly diminished breath sounds bibasilar. No wheezes or crackles. On 3 L of oxygen by nasal cannula. Cardio regular rate, regular rhythm, S1 normal heart sound and S2 normal heart sound GI normal to inspection, nondistended, normoactive bowel sounds, soft to palpation and non-tender Extremity normal capillary refill, no clubbing, cyanosis or edema and no calf tenderness General Extremity: no tenderness to palpation of joints or extremities Skin General Skin Exam: no breakdown Neuro CN's II-XII intact bilaterally and no focal motor deficits Motor Exam: general weakness Psych Psych Narrative: patient very weak and frail. Assessment & Plan Assessment/Plan (1) Diarrhea: QUALIFIERS: Diarrhea type: infectious Qualified Code(s): A09 - Infectious gastroenteritis and colitis, unspecified (2) C. difficile colitis: (3) Generalized weakness: PLAN: Plan #Acute C diff colitis * Still having loose stools but they have been more formed now. CT of the abdomen and pelvis showed diffusely thickened and inflamed colon likely reflective of pancolitis. On p.o. vancomycin. WBC continues to improve. * Sepsis due to C diff colitis * sepsis has now resolved. On midodrine due to hypotension * #HFrEF * not in exacerbation. On 3L of oxy gen which is his baseline. * has known EF of 40% with mild to moderate global hypokinesis of the left ventricle. * CKD IIIa: Cr at baseline. CR today is down to 0.89. #Hyperlipidemia: on pravastatin and niacine #Severe protein calorie malnutrition * patient very cachectic. Hehas BMI of 26, but has decreased muscle mass, bilateral chornic shoulder weawkness and intercostal and costovertebral muscle loss. * nutrition on board * #HYpopcalcemia: calcium is 6.3. Will replace and trend. Potassium is 3.6. #Paroxysmal afib: rate controlled. On carvedilol and eliquis. #Coronary artery disease: s/p PCI. On aspirin and plavix as well as high intensity statin #Thrombocytopenia: chronic. Will monitor #History of gout: on allopurinol #Debility and weakness: PT/OT on board. Fall precautions. DVT prophylaxis: not indicated as he is on eliquis. Disposition: patient and family refusing hospice or placement. Plan is for dc home once medically stable. Charges/Coding Visit Charges Inpatient E&M: 98407 Subs Hosp L2
[2025-03-06 17:00] VITALS: BP 105/70; PULSE 80; RESP 16; TEMP 36.1; O2SAT 99
[2025-03-06 20:50] VITALS: BP 133/85; PULSE 63; RESP 18; TEMP 36.3; O2SAT 93
[2025-03-06] MEDS: Latanoprost 0.005% 1 Bottle 1 DRP OPHTHALMIC (21:04)
[2025-03-07 03:10] VITALS: BMI 27.9
[2025-03-07 04:00] VITALS: BP 118/52; PULSE 78; RESP 18; TEMP 36.3; O2SAT 93
[2025-03-07] MEDS: Lactobacillis Acidophilus 1 CAP PO ×2 (06:44→14:38)
[2025-03-07] MEDS: APIXABAN 2.5 MG TABLET (WCH) PO (08:39)
[2025-03-07] MEDS: Ensure Plus High Protein 120 ML LIQUID PO ×2 (08:40→13:29)
[2025-03-07] MEDS: BRINZOLAMIDE/BRIMONID TART 1 DROP DROPS.SUSP 1 DRP EACH EYE (08:41)
[2025-03-07 09:40] LABS: Hematocrit 40.8 % (40-54); Hemoglobin 13.2 g/dL (13.0-16.5); Mean Corp Hgb Conc 32.4 g/dL (32-36); Mean Corpuscular Volume 113.6 fL (80-94); Mean Platelet Vol. 10.3 fl (6.2-12.0); POSITIVE COUNT YES; POSITIVE MORPHOLOGY YES; Platelet Count 200 K/mm3 (150-450); RBC Distribution Width CV 16.8 % (11.6-14.6); RBC Distribution Width SD 70.4 fl (35.1-43.9); Red Blood Count 3.59 M/mm3 (4.6-6.2); White Blood Count 8.9 K/mm3 (4.4-11.0)
[2025-03-07 09:41] LABS: Differential Indicated MANUAL DIFF
[2025-03-07 10:00] VITALS: BP 108/52; PULSE 78; RESP 16; TEMP 35.9; O2SAT 92
[2025-03-07 10:03] LABS: Neutrophil-Band 4 % (0-5); Neutrophil-Segmented 67 % (47-70); Red Cell Morphology NORM C+C NORMAL (NORM C&C); Total Cells Counted 100 (MANUAL DIFF)
[2025-03-07 10:04] LABS: Anisocytosis 2+
[2025-03-07 10:16] LABS: Anion Gap 8 (5-15); BUN 35 mg/dL (4-19); BUN/Creat Ratio 33.8 RATIO (10-20); Calcium,Total 8.3 mg/dL (7.6-11.0); Carbon Dioxide 17.2 mmol/L (21.0-32.0); Chloride 106 mmol/L (98-108); Estimated Creatinine Clearance 58.87 ml/min (50-250); Glucose 106 mg/dL (70-99); Potassium 4.4 mmol/L (3.3-5.1)
[2025-03-07] MEDS: Vancomycin 125 MG/5 ML Susp PO.SYRINGE PO ×2 (11:03→14:38)
--- NOTE | 2025-03-07 13:49 | CASEMGMT ---
Social Work - Discharge Plan Followed up with patient to discuss discharge plans. Patient alone in room, and willing to speak with this designer writer. Patient confirms plan to return to family home of 63 years, with family assist. Patient reports that while daughter does not technically live with patient and patient's , the daughter Susan is in and out of the home daily and able to help. Patient states [place] live [place], and to have big farm hands who can help if needed. Patient declines offer of any home health care, nor any consideration of Hospice. Patient reports at some point in the future may be okay with care in the home, but not at present time. This designer writer explored with patient as to whether patient feels safe with this plan, and whether this is patient's goal for discharge or the intent and goal of others. This designer writer noted a gait belt was being used with therapy yesterday, which this designer writer broached with patient. Patient reports will get a regular belt to help and to have people who can assist. Patient states the plan is what patient wants and what we all agree upon meaning the patient and family. Patient reports home is set up on first floor, to have bed on the first floor but if needed to have a hospital bed. Reports has had 4 ortho surgeries in the past and thus needed a hospital bed for recovery. Reports to have rollator, forward wheeled walker, standard walker, BSC, portable O2, and and O2 concentrator. Patient denies any needs for home going and reports family will transport. Last discharge went home in a [employer]. Spoke with laisha's RN Gwendolyn Molina who will remind the daughter to bring in O2 tank when family comes to pick patient up Patient states to feel much better, and saw a turn for the better 2 days ago. States can breath better and appetite is improving. Plan: Home with family assist. Patient declines referrals to home health or hospice agencies. Plan to make APS referral due to concerns early on regarding daughters interactions and influence regarding patient and 's wishes for hospice care - may be good to have follow up to ensure needs are being safely met at home. SW remains available during hospital stay. -RAFA Wyman
--- NOTE | 2025-03-07 14:17 | PCM.DC ---
Discharge Instructions DC O2, CPAP, BIPAP needs Home O2 Discharge instructions: Yes Type of respiratory needs?: Oxygen (3) Oxygen frequency: Continuous Continuous oxygen liters per minute: 3 Dressing / Incision Discharge Activity: Return to Normal Activity Dressing / Incision Call your doctor if you observe: Fever of 101 or Higher, Shortness of breath, Dizziness, Swelling in the ankles and - (diarrhea) Follow Up Care Test Results: Test results from this visit will be discussed in further detail at your follow-up appointment, if applicable. Discharge Plan Admission Admit Date/Time: 02/27/25 17:53 Primary Reason for Your Visit: CDiff Attending Provider: Uzma Cotton Primary Care Provider: Butch Munoz Consulting Providers: Isidro Wong; León Mckeon; Abundio Garzon; Yumi Fisher; Ynes Huynh; Lis Charles; Kenisha Cabrera PROTECTOR PLATE ATTACHER; Teresa Cadet; Abundio Hurtado; zUma Cotton Instructions Patient Instructions: C Diff Infect Discharge Orders/Prescriptions Prescriptions: New vancomycin 125 mg capsule 125 mg PO Q6H 3 Days Qty: 12 0RF Continued allopurinol 300 mg tablet 300 mg PO DAILY nitroglycerin 0.4 mg tablet, sublingual 0.4 mg SUBLINGUAL Q5-15M PRN (Reason: chest pain) carvedilol [Coreg] 3.125 mg tablet 3.125 mg PO BID amoxicillin 500 mg tablet 2,000 mg PO DAILY PRN (Reason: DENTIST) Patient Comments: 30-60 minutes prior to dental procedure/ONLY WHEN HE GOES TO DENTIST. Lumigan 0.01 % drops 1 drp OPHTHALMIC QHS Rx Instructions: 1 DROP IN BOTH EYES Centrum Silver Men 300-600-300 mcg tablet 1 tab PO DAILY Simbrinza 1-0.2 % drops,suspension 1 drp OPHTHALMIC BID lutein 10 mg tablet 10 mg PO DAILY Rx Instructions: give with meal/snack Eliquis 2.5 mg tablet 2.5 mg PO BID Qty: 60 0RF furosemide [Lasix] 40 mg tablet 40 mg PO DAILY Qty: 1 0RF potassium chloride 20 mEq tablet,ER particles/crystals 20 meq PO BID pravastatin 20 mg tablet 20 mg PO DAILY Probacap 10 billion cell capsule 10,000 mmu cells PO DAILY Rx Instructions: unsure of strength, Dr Munoz had them get otc Referrals / Follow Up: Butch Munoz MD [Primary Care Provider] - Within 1 Week Disposition Disposition (needs filled in before D/C Order can be placed): Home, Self Care
--- NOTE | 2025-03-07 14:17 | PCM.DC.SUM ---
Providers Date of Admission: 02/27/25 Date of Discharge: 03/07/25 Primary Care Physician: Dr. Butch Munoz MD Consultations 02/27/25 19:17 Consult: Hospice / Palliative Care Routine Consulting Provider: [facility] Reason for Consult: HF, Failure to thrive, EMERGENT Consult: No Notified: Yes Date Notified: 02/27/25 Time Notified: 19:18 Method of Notification: Answering Service 02/27/25 20:00 Consult: Cardiology Routine Consulting Provider: Isidro Wong Reason for Consult: chronic HF, low BP, AFIB, cdiff EMERGENT Consult: No MD Notified: Yes Date Notified: 02/27/25 Time Notified: 20:00 Method of Notification: ED Physician Initiated Reason For Visit: DIARRHEA, WEAKNESS, LOW BP Diagnosis Discharge Diagnosis (1) Diarrhea: Status: Acute Code(s): R19.7 - Diarrhea, unspecified Qualifiers: Diarrhea type: infectious Qualified Code(s): A09 - Infectious gastroenteritis and colitis, unspecified (2) C. difficile colitis: Status: Acute Code(s): A04.72 - Enterocolitis due to Clostridium difficile, not specified as recurrent (3) Generalized weakness: Status: Acute Code(s): R53.1 - Weakness Plan #Acute C diff colitis Still having loose stools but they have been more formed now. CT of the abdomen and pelvis showed diffusely thickened and inflamed colon likely reflective of pancolitis. On p.o. vancomycin. WBC continues to improve. Sepsis due to C diff colitis sepsis has now resolved. On midodrine due to hypotension #HFrEF not in exacerbation. On 3L of oxy gen which is his baseline. has known EF of 40% with mild to moderate global hypokinesis of the left ventricle. CKD IIIa: Cr at baseline. CR today is down to 0.89. #Hyperlipidemia: on pravastatin and niacine #Severe protein calorie malnutrition patient very cachectic. Hehas BMI of 26, but has decreased muscle mass, bilateral chornic shoulder weawkness and intercostal and costovertebral muscle loss. nutrition on board #HYpopcalcemia: calcium is 6.3. Will replace and trend. Potassium is 3.6. #Paroxysmal afib: rate controlled. On carvedilol and eliquis. #Coronary artery disease: s/p PCI. On aspirin and plavix as well as high intensity statin #Thrombocytopenia: chronic. Will monitor #History of gout: on allopurinol #Debility and weakness: PT/OT on board. Fall precautions. DVT prophylaxis: not indicated as he is on eliquis. Disposition: patient and family refusing hospice or placement. Plan is for dc home once medically stable. Medications at Discharge Home Medications allopurinol 300 mg tablet 300 mg PO DAILY gout 09/13/17 amoxicillin 500 mg tablet 2,000 mg PO DAILY PRN DENTIST 09/13/17 bimatoprost 0.01 % eye drops (Lumigan) 1 drp ophthalmic (eye) QHS 09/13/17 carvedilol 3.125 mg tablet (Coreg) 3.125 mg PO BID blood pressure 09/13/17 [id number] 300 mcg-K 60 mcg-lycop 600 mcg-lutein 300 mcg tablet (Centrum Silver Men) 1 tab PO DAILY supplement 09/13/17 nitroglycerin 0.4 mg sublingual tablet 0.4 mg sublingual Q5-15M PRN chest pain 09/13/17 brinzolamide 1 %-brimonidine 0.2 % eye drops,suspension (Simbrinza) 1 drp ophthalmic (eye) BID eyes 02/10/19 apixaban 2.5 mg tablet (Eliquis) 2.5 mg PO BID blood thinner #60 tabs 12/07/24 lutein 10 mg tablet 10 mg PO DAILY 12/07/24 furosemide 40 mg tablet (Lasix) 40 mg PO DAILY diuretic #1 TAB 02/13/25 Lactobacillus acidophilus 10 billion cell capsule (Probacap) 10,000 mmu cells PO DAILY 02/27/25 potassium chloride 20 mEq tablet,extended release(part/cryst) 20 meq PO BID supplement 02/27/25 pravastatin 20 mg tablet 20 mg PO DAILY cholesterol 02/27/25 vancomycin 125 mg capsule 125 mg PO Q6H 3 days #12 caps 03/07/25 Hospital Course Operations None Procedures None Summary of Care Provided Minutes Spent on Discharge: 38 Hospital Course: Patient is an 89-year-old male with past medical history as outlined was admitted through the ED on 02/27/2025 with a complaint of diarrhea and weakness. Patient had multiple comorbidities including chronic respiratory failure on home oxygen. He describes his diarrhea as 3-4 loose stools daily and was nonbloody. On admission he was hypotensive and required 4 L of oxygen. She did have a history of known heart failure as well. CT of the abdomen with IV contrast and chest x-ray showed pulmonary venous congestion and moderate right pleural effusion. It also showed gaseous distention and diffuse thickening and inflammation of the large intestine and colon suggestive of pancolitis. C. difficile testing was positive. He was therefore admitted and managed for acute C. difficile colitis and started on oral vancomycin. He had a known EF of 40% with mild to moderate global hypokinesis of the left ventricle. He remained on his baseline 4 L of oxygen throughout admission. Patient's stool enteric panel was also positive for Yersinia. His daughter informed this hospitalist that the health department called her and inquired about patient had consumed any undercooked pork and they were whether they were on well water and had been around any livestock. Patient said they did have livestock but patient was not very close to them. She did admit to them being on well water and said her mother usually prepared patient's meals and she could not stay with her mother prepared it in as hygienic manner as she thought. She therefore said she would speak to mother about maintaining appropriate hygienic environment while sitting would also keep patient away from livestock to decrease his chances of getting Yersinia again. He inquired whether patient could have gotten it while he was in the hospital recently. I did inform her that this was highly unlikely due to the incubation period of 3 to 7 days meaning patient would have shown symptoms a long time ago as he was in the hospital last month. Also would likely have been at the patient's show in similar symptoms so was therefore highly unlikely that he caught it from the hospital. Patient was seen and examined prior to discharge. He felt very weak and frail. They had been skilled to go to a [facility] but he refused. Patient was also deemed hospice appropriate but he and his family refused hospice. They insisted on taking him home. Labs and vitals reviewed. Home medication reviewed and reconciled. Physical Exam Const alert and oriented x3 Constitutional Narrative: Patient is very frail and incredibly weak and lethargic. Orientation / Consciousness: lethargic HEENT normocephalic and head/scalp atraumatic Eyes EOMs intact bilaterally Neck no lymphadenopathy and supple Lymph Lymphatic: no lymphedema noted Resp Resp Narrative: Mildly diminished breath sounds bibasilar. No wheezes or crackles. On 3 L of oxygen by nasal cannula. Cardio regular rate, regular rhythm, S1 normal heart sound and S2 normal heart sound GI normal to inspection, nondistended, normoactive bowel sounds, soft to palpation and non-tender Extremity normal capillary refill, no clubbing, cyanosis or edema and no calf tenderness General Extremity: no tenderness to palpation of joints or extremities Skin General Skin Exam: no breakdown Neuro CN's II-XII intact bilaterally and no focal motor deficits Motor Exam: general weakness Psych Psych Narrative: patient very weak and frail. Medical Records Data Medical Nutrition Assessment Dietitian: Malnutrition Criteria Met Start: 02/28/25 15:33 Freq: Status: Active Protocol: Document 03/03/25 14:00 SB (Rec: 03/03/25 14:00 SB [id number]) Nutrition Malnutrition Evidence of Yes Malnutrition Exists Malnutrition (severe Acute Illness/Injury ): Evidenced By Suboptimal Energy Intake (Severe),Weight Loss (Severe), Physical Changes (Severe) Intake Problem Increased Nutrient Needs (specify) Etiology protein related to wound healing Signs/Symptoms as evidenced by pressure injury on coccyx Status Active Problem Clinical Problem Acute Disease or Injury Related Malnutrition Etiology severe related to inadequate oral/energy intake due to c.diff Signs/Symptoms as evidenced by PO meeting <50% of estimated nutrition needs x 3 weeks, 12% weight loss x 2 months and severe muscle/fat wasting in clavicle, temples, and orbitals. Status Active Problem Recommendation Dietitian Continue regular diet and james with breakfast and Recommendations/ dinner. Changes Continue 120ml EPHP TID with medpass. Will order chocolate milkshake with dinner. Will monitor weight trends. Weight / BMI Weight Weight: 206 lb 2.115 oz Body Mass Index (BMI) 27.9 ABG / Lab / Microbiology Data 03/07/25 09:25 03/07/25 09:25 Laboratory: Laboratory Results - last 24 hr 03/07/25 09:25: WBC 8.9, RBC 3.59 L, Hgb 13.2, Hct 40.8, MCV 113.6 H, MCH 36.8 H, MCHC 32.4, RDW Std Deviation 70.4 H, RDW Coeff of Yanet 16.8 H, Plt Count 200, MPV 10.3, Neut % (Auto) Not Reportable, Absolute Neuts (auto) 6.3, Absolute Lymphs (auto) 1.96, Total Counted 100, Neutrophils % (Manual) 67, Band Neutrophils % 4, Lymphocytes % (Manual) 22, Monocytes % (Manual) 5, Eosinophils % (Manual) 1, Myelocytes % 1 H, Platelet Estimate ADEQUATE, RBC Morphology NORM C+C, Anisocytosis 2+, Sodium 131 L, Potassium 4.4, Chloride 106, Carbon Dioxide 17.2 L, Anion Gap 8, BUN 35 H, Creatinine 1.03, Estim Creat Clear Calc 58.87, Est GFR (MDRD) Non-Af 70, BUN/Creatinine Ratio 33.8 H, Glucose 106 H, Calcium 8.3 Microbiology: Microbiology 02/27/25 16:04 Stool Ova and Parasites - Final 02/27/25 16:04 Stool Stool Lactoferrin - Final 02/27/25 16:04 Stool Enteric Bacteriology - Final Yersinia enterocolitica 02/27/25 16:04 Stool C. difficile GDH Antigen & Toxins - Final Toxigenic C. difficile 02/27/25 16:04 Stool Clostridioides difficile (PCR) - Final D/C Instructions Discharge Activity: Return to Normal Activity Call your doctor if you observe: Fever of 101 or Higher, Shortness of breath, Dizziness, Swelling in the ankles and - (diarrhea) DC O2, CPAP, BIPAP Needs Home O2 Discharge instructions: Yes Type of respiratory needs?: Oxygen (3) Oxygen frequency: Continuous Continuous oxygen liters per minute: 3 DC home with Oxygen: Yes Home O2 MD Review: I have reviewed the oxygen testing, and the patient qualifies for home oxygen equipment and portability. The patient is mobile in the home and the community. Meaningful Use Info Meaningful Use Meaningful Use Diagnoses (Choose all that apply): None applicable Discharge Plan Admission Admit Date/Time: 02/27/25 17:53 Primary Reason for Your Visit: CDiff Attending Provider: Uzma Cotton Primary Care Provider: Butch Munoz Consulting Providers: Isidro Wong; León Mckeon; Abundio Garzon; Yumi Fisher; Ynes Huynh; Lis Charles; Kenisha Cabrera NP; Teresa Cadet; Abundio Hurtado; Uzma Cotton Instructions Patient Instructions: C Diff Infect Discharge Orders/Prescriptions Prescriptions: New vancomycin 125 mg capsule 125 mg PO Q6H 3 Days Qty: 12 0RF Continued allopurinol 300 mg tablet 300 mg PO DAILY nitroglycerin 0.4 mg tablet, sublingual 0.4 mg SUBLINGUAL Q5-15M PRN (Reason: chest pain) carvedilol [Coreg] 3.125 mg tablet 3.125 mg PO BID amoxicillin 500 mg tablet 2,000 mg PO DAILY PRN (Reason: DENTIST) Patient Comments: 30-60 minutes prior to dental procedure/ONLY WHEN HE GOES TO DENTIST. Lumigan 0.01 % drops 1 drp OPHTHALMIC QHS Rx Instructions: 1 DROP IN BOTH EYES Centrum Silver Men 300-600-300 mcg tablet 1 tab PO DAILY Simbrinza 1-0.2 % drops,suspension 1 drp OPHTHALMIC BID lutein 10 mg tablet 10 mg PO DAILY Rx Instructions: give with meal/snack Eliquis 2.5 mg tablet 2.5 mg PO BID Qty: 60 0RF furosemide [Lasix] 40 mg tablet 40 mg PO DAILY Qty: 1 0RF potassium chloride 20 mEq tablet,ER particles/crystals 20 meq PO BID pravastatin 20 mg tablet 20 mg PO DAILY Probacap 10 billion cell capsule 10,000 mmu cells PO DAILY Rx Instructions: unsure of strength, Dr Munoz had them get otc Referrals / Follow Up: Butch Munoz MD [Primary Care Provider] - 03/16/25 10:00 am Disposition Disposition (needs filled in before D/C Order can be placed): Home, Self Care Charges/Coding Visit Charges Inpatient E&M: 51403 Disch Hosp >30min
[2025-03-07 17:00] VITALS: BP 104/58; PULSE 78; RESP 14; TEMP 35.9; O2SAT 92
== END 2025-03-07 17:10 | disposition home or self-care (01) | DRG 871 ==
LOC: ED 18:04 → PCU 18:10
PROVIDERS: Family Medicine; Internal Medicine; Admitting Provider Internal Medicine; Emergency Provider Emergency Medicine; PCP Family Medicine; Referring Provider Emergency Medicine; Visit Provider Student in an Organized Health Care Education/Training Program
DX: A41.4 Sepsis due to anaerobes (principal); E43 Unspecified severe protein-calorie malnutrition; A04.72 Enterocolitis due to Clostridium difficile, not specified as recurrent; K56.7 Ileus, unspecified; A04.6 Enteritis due to Yersinia enterocolitica; I13.0 Hypertensive heart and chronic kidney disease with heart failure and stage 1 through stage 4 chronic kidney disease, or unspecified chronic kidney disease; I50.22 Chronic systolic (congestive) heart failure; J96.10 Chronic respiratory failure, unspecified whether with hypoxia or hypercapnia; N17.9 Acute kidney failure, unspecified; E83.51 Hypocalcemia; Z66 Do not resuscitate; N18.31 Chronic kidney disease, stage 3a; I48.0 Paroxysmal atrial fibrillation; E78.5 Hyperlipidemia, unspecified; I25.10 Atherosclerotic heart disease of native coronary artery without angina pectoris; M10.9 Gout, unspecified; I25.2 Old myocardial infarction; E86.0 Dehydration; Z68.23 Body mass index [BMI] 23.0-23.9, adult; R53.1 Weakness; Z99.81 Dependence on supplemental oxygen; R53.81 Other malaise; Z79.01 Long term (current) use of anticoagulants; Z79.899 Other long term (current) drug therapy; Z95.5 Presence of coronary angioplasty implant and graft
CPT/HCPCS: 36415; 71045; 74177; 80048; 80053; 80061; 81001; 83605; 83630; 83735; 83880; 84100; 84443; 85025; 85027; 87177; 87209; 87493; 87506; 93005; 97116; 97162; 97166; 97530; 97803; 99285; Q9967; A4216; J0612